=== PATIENT | male | born 1960 | race Caucasian/White ===

== ENCOUNTER 2017-10-01 17:21 | Emergency (ER) | payer OTHER, BC ==
[2017-10-01] MEDS ORDERED: HYDROmorphone 1 MG/ML 1 ML SYRINGE IVP STA (17:56)
[2017-10-01] MEDS ORDERED: ONDANSETRON 4 MG/2 ML VIAL IVP STA (17:56)
--- NOTE | 2017-10-01 18:04 | ED ---
General Adult HPI - General Chief complaint: Recheck/Abnormal Lab/Rx Stated complaint: post OP prostate/Bleeding Time Seen by Provider: 10/01/17 17:47 Source: patient, RN notes reviewed Mode of arrival: ambulatory Limitations: no limitations - History of Present Illness Initial comments: Patient 56-year-old male status post prostatectomy 6 days, who presents emergency room today with chief complaint of abdominal pain and believe that he may have follow-up with his nancy. Patient states that he was tried have a bowel movement prior to arrival and felt something pop. States she's had some increased drainage has been clear in color. Patient currently rates abdominal pain 06/25. States he has been using [place] for the pain. Patient does move to some irritation to the skin area from the tape that he's been using. He denies any other complaints Patient denies any recent fever, chills, shortness of breath, chest pain, back pain, nausea or vomiting, numbness or tingling, dysuria or hematuria, constipation or diarrhea, headaches or visual changes, or any other complaints. - Related Data Home Medications Medication Instructions Recorded Confirmed Simvastatin [Zocor] 80 mg PO HS 04/25/14 10/01/17 Albuterol Inhaler [Ventolin Hfa 2 puff INHALATION Q6HR PRN 04/27/14 10/01/17 Inhaler] Hydrochlorothiazide [Hydrodiuril] 25 mg PO HS 04/27/14 10/01/17 Sertraline [Zoloft] 100 mg PO HS 04/27/14 10/01/17 Hydrocodone/Acetaminophen [[place] 1 tab PO Q4HR PRN 10/01/17 10/01/17 7.5-325] Sennosides [Senna] 8.6 mg PO BID PRN 10/01/17 10/01/17 Simethicone [Gas-X] 125 mg PO DAILY PRN 10/01/17 10/01/17 traZODone HCL 50 mg PO HS 10/01/17 10/01/17 Previous Rx's Medication Instructions Recorded Levofloxacin [Levaquin] 500 mg PO DAILY 7 Days tab 10/01/17 Allergies Allergy/AdvReac Type Severity Reaction Status Date / Time adhesive tape Allergy Rash/Hives Verified 10/01/17 18:21 Review of Systems ROS Statement: Those systems with pertinent positive or pertinent negative responses have been documented in the HPI. ROS Other: All systems not noted in ROS Statement are negative. Past Medical History Past Medical History: Asthma, Cancer, Hyperlipidemia Additional Past Medical History / Comment(s): peripheral edema. Prostate cancer History of Any Multi-Drug Resistant Organisms: None Reported Past Surgical History: Appendectomy, Prostate Surgery Additional Past Surgical History / Comment(s): left wrist, left shoulder pin, cystectomy tailbone, open abdominal surgery to remove prsotate Past Anesthesia/Blood Transfusion Reactions: No Reported Reaction Past Psychological History: PTSD Smoking Status: Never smoker Past Alcohol Use History: None Reported Past Drug Use History: None Reported - Past Family History Father Family Medical History: No Reported History General Exam - General Exam Comments Initial Comments: General: The patient is awake and alert, in no distress, and does not appear acutely ill. Eye: Pupils are equal, round and reactive to light, extra-ocular movements are intact. No nystagmus. There is normal conjunctiva bilaterally. No signs of icterus. Ears, nose, mouth and throat: There are moist mucous membranes and no oral lesions. Neck: The neck is supple, there is no tenderness or JVD. Cardiovascular: There is a regular rate and rhythm. No murmur, rub or gallop is appreciated. Respiratory: Lungs are clear to auscultation, respirations are non-labored, breath sounds are equal. No wheezes, stridor, rales, or rhonchi. Gastrointestinal: Incision midline. Clear drainage coming from the incision site. Mild redness locally around the incision site and previous drain sites to the lower abdomen. Abdomen soft on palpation mild tenderness to lower abdomen. Musculoskeletal: Normal ROM, no tenderness. Strength 5/5. Sensation intact. Pulses equal bilaterally 2+. Neurological: A&O x 3. CN II-XII intact, There are no obvious motor or sensory deficits. Coordination appears grossly intact. Speech is normal. Skin: Mild redness irritation to the lower abdomen around the incision site and previous drain sites. Some irritation from tape and dressings. Psychiatric: Cooperative, appropriate mood & affect, normal judgment. Limitations: no limitations Course Vital Signs 10/01/17 17:39 Temperature 97.7 F Pulse Rate 90 Respiratory 18 Rate Blood Pressure 125/73 O2 Sat by Pulse 97 Oximetry Medical Decision Making - Medical Decision Making Case discussed in detail and seen by attending physician Dr. Chatterjee. Patient reexamined at this time shows no signs of distress resting comfortably. Patient labs reviewed 13,000 white count. Urinalysis reviewed does show evidence for urinary tract infection. At this time patient is resting comfortably. His abdomen soft nontender on exam. Mild irritation to the incision site and areas where drain tubes were placed. Patient will have topical antibiotics applied to the area is locally. Her on antibiotics cover for urinary tract infection and advised to follow-up with surgeon tomorrow. Advised return if there is any fever or increase or worsening symptoms. Patient and family member at bedside state understanding and are negative. - Lab Data Result diagrams: 10/01/17 18:30 10/01/17 18:30 Lab Results 10/01/17 10/01/17 10/01/17 Range/Units 18:30 18:30 18:30 WBC 13.7 H (3.8-10.6) k/uL RBC 3.73 L (4.30-5.90) m/uL Hgb 11.0 L (13.0-17.5) gm/dL Hct 35.1 L (39.0-53.0) % MCV 94.2 (80.0-100.0) fL MCH 29.5 (25.0-35.0) pg MCHC 31.3 (31.0-37.0) g/dL RDW 15.4 (11.5-15.5) % Plt Count 355 (150-450) k/uL Neutrophils % 71 % Lymphocytes % 12 % Monocytes % 9 % Eosinophils % 6 % Basophils % 1 % Neutrophils # 9.7 H (1.3-7.7) k/uL Lymphocytes # 1.6 (1.0-4.8) k/uL Monocytes # 1.2 H (0-1.0) k/uL Eosinophils # 0.8 H (0-0.7) k/uL Basophils # 0.1 (0-0.2) k/uL PT 9.3 (9.0-12.0) sec INR 0.9 (<1.2) APTT 20.5 L (22.0-30.0) sec Sodium 139 (137-145) mmol/L Potassium 4.5 (3.5-5.1) mmol/L Chloride 105 (98-107) mmol/L Carbon Dioxide 30 (22-30) mmol/L Anion Gap 4 mmol/L BUN 21 H (9-20) mg/dL Creatinine 0.95 (0.66-1.25) mg/dL Est GFR (MDRD) Af Amer >60 (>60 ml/min/1.73 sqM) Est GFR (MDRD) Non-Af >60 (>60 ml/min/1.73 sqM) Glucose 107 H (74-99) mg/dL Calcium 9.1 (8.4-10.2) mg/dL Total Bilirubin 0.5 (0.2-1.3) mg/dL AST 75 H (17-59) U/L ALT 95 H (21-72) U/L Alkaline Phosphatase 88 (38-126) U/L Total Protein 5.8 L (6.3-8.2) g/dL Albumin 3.1 L (3.5-5.0) g/dL Urine Color Urine Appearance (Clear) Urine pH (5.0-8.0) Ur Specific [place] (1.001-1.035) Urine Protein (Negative) Urine Glucose (UA) (Negative) Urine Ketones (Negative) Urine Blood (Negative) Urine Nitrite (Negative) Urine Bilirubin (Negative) Urine Urobilinogen (<2.0) mg/dL Ur Leukocyte Esterase (Negative) Urine RBC (0-5) /hpf Urine WBC (0-5) /hpf Amorphous Sediment (None) /hpf Hyaline Casts (0-2) /lpf Urine Mucus (None) /hpf 10/01/17 Range/Units 18:30 WBC (3.8-10.6) k/uL RBC (4.30-5.90) m/uL Hgb (13.0-17.5) gm/dL Hct (39.0-53.0) % MCV (80.0-100.0) fL MCH (25.0-35.0) pg MCHC (31.0-37.0) g/dL RDW (11.5-15.5) % Plt Count (150-450) k/uL Neutrophils % % Lymphocytes % % Monocytes % % Eosinophils % % Basophils % % Neutrophils # (1.3-7.7) k/uL Lymphocytes # (1.0-4.8) k/uL Monocytes # (0-1.0) k/uL Eosinophils # (0-0.7) k/uL Basophils # (0-0.2) k/uL PT (9.0-12.0) sec INR (<1.2) APTT (22.0-30.0) sec Sodium (137-145) mmol/L Potassium (3.5-5.1) mmol/L Chloride (98-107) mmol/L Carbon Dioxide (22-30) mmol/L Anion Gap mmol/L BUN (9-20) mg/dL Creatinine (0.66-1.25) mg/dL Est GFR (MDRD) Af Amer (>60 ml/min/1.73 sqM) Est GFR (MDRD) Non-Af (>60 ml/min/1.73 sqM) Glucose (74-99) mg/dL Calcium (8.4-10.2) mg/dL Total Bilirubin (0.2-1.3) mg/dL AST (17-59) U/L ALT (21-72) U/L Alkaline Phosphatase (38-126) U/L Total Protein (6.3-8.2) g/dL Albumin (3.5-5.0) g/dL Urine Color Light Red Urine Appearance Cloudy (Clear) Urine pH 6.0 (5.0-8.0) Ur Specific [place] 1.025 (1.001-1.035) Urine Protein 2+ H (Negative) Urine Glucose (UA) Negative (Negative) Urine Ketones Negative (Negative) Urine Blood Large H (Negative) Urine Nitrite Negative (Negative) Urine Bilirubin Negative (Negative) Urine Urobilinogen <2.0 (<2.0) mg/dL Ur Leukocyte Esterase Moderate H (Negative) Urine RBC >182 H (0-5) /hpf Urine WBC 70 H (0-5) /hpf Amorphous Sediment Occasional H (None) /hpf Hyaline Casts 2 (0-2) /lpf Urine Mucus Few H (None) /hpf Disposition Clinical Impression: UTI (urinary tract infection), Encounter for postoperative wound check Disposition: HOME SELF-CARE Condition: Good Instructions: Urinary Tract Infection in Men (ED) Additional Instructions: Please follow-up with the surgeon tomorrow. Please use antibiotic as prescribed. Please return to the emergency room there is any fever, increase or worsening symptoms or any other concern. Prescriptions: Levofloxacin [Levaquin] 500 mg PO DAILY 7 Days tab Referrals: Gary Pagan DO [Primary Care Provider] - 1-2 days Time of Disposition: 19:46
[2017-10-01 18:56] LABS: Basophils # (A) 0.1 k/uL (0-0.2); Basophils % (A) 1 %; CH 29.5; CHCM 31.5; Eosinophils # (A) 0.8 k/uL (0-0.7); Eosinophils % (A) 6 %; HCT 35.1 % (39.0-53.0); HDW 2.48; Luc # (Auto) 0.24; Luc % (Auto) 2; Lymphocytes # (A) 1.6 k/uL (1.0-4.8); Lymphocytes % (A) 12 %; MCH 29.5 pg (25.0-35.0); MCHC 31.3 g/dL (31.0-37.0); MCV 94.2 fL (80.0-100.0); Mean Platelet Volume 7.5; Monocytes # (A) 1.2 k/uL (0-1.0); Monocytes % (A) 9 %; Neutrophils # (A) 9.7 k/uL (1.3-7.7); Neutrophils % (A) 71 %; RBC 3.73 m/uL (4.30-5.90); RDW 15.4 % (11.5-15.5); WBC 13.7 k/uL (3.8-10.6); WBC (Perox) 14.61
[2017-10-01 19:03] LABS: Amorphous Sediment,Urine Occasional /hpf; Appearance,Urine Cloudy (Clear); Bilirubin,Urine Negative (Negative); Glucose,Urine (UA) Negative (Negative); Ketones,Urine Negative (Negative); Leukocyte Esterase,Urine Moderate (Negative); Mucus,Urine Few /hpf; Nitrite,Urine Negative (Negative); Particle Count 8497; Protein,Urine 2+ (Negative); RBC,Urine >182 /hpf (0-5); Specific Gravity,Urine 1.025 (1.001-1.035); UA Billing (MACRO vs. MICRO) MICRO; Urobilinogen,Urine <2.0 mg/dL (<2.0); WBC,Urine 70 /hpf (0-5)
[2017-10-01 19:07] LABS: ALT 95 U/L (21-72); AST 75 U/L (17-59); Alkaline Phosphatase 88 U/L (38-126); Anion Gap 4 mmol/L; Blood Urea Nitrogen 21 mg/dL (9-20); Calcium 9.1 mg/dL (8.4-10.2); Carbon Dioxide 30 mmol/L (22-30); Chloride 105 mmol/L (98-107); Glucose 107 mg/dL (74-99); Non-African American GFR(MDRD) >60 (>60 ml/min/1.73 sqM); Potassium 4.5 mmol/L (3.5-5.1); Sodium 139 mmol/L (137-145); Total Bilirubin 0.5 mg/dL (0.2-1.3); Total Protein 5.8 g/dL (6.3-8.2)
[2017-10-01 19:14] LABS: INR 0.9 (<1.2); Prothrombin Time 9.3 sec (9.0-12.0)
[2017-10-01 19:15] LABS: Partial Thromboplastin Time 20.5 sec (22.0-30.0)
--- NOTE | 2017-10-01 19:23 | XR ---
EXAMINATION TYPE: XR KUB DATE OF EXAM: 10/01/2017 CLINICAL DATA: 56-year-old male with pain, recent prostate surgery, complaining of drainage from inc ision, [facility] COMPARISON: None FINDINGS: Lung bases are clear. No evidence for free intraperitoneal air. Scattered small air-fluid levels throughout the abdomen. No dilated bowel. No significant stool burde n. Anterior midline skin nancy along the pelvis with a multiple surgical clips relating to the shama ent's recent prostatectomy. IMPRESSION: No evidence for bowel obstruction. However, scattered small air-fluid levels suggest a generalized il eus or enteritis. Postsurgical changes of patient's prostatectomy.
[2017-10-01 19:53] VITALS: BP 133/71; PULSE 85; RESP 19; TEMP 98
== END 2017-10-01 19:53 | disposition home or self-care (01) ==
LOC: EC 17:21
DX: Z48.01 Encounter for change or removal of surgical wound dressing (principal); N39.0 Urinary tract infection, site not specified; E78.5 Hyperlipidemia, unspecified; F43.10 Post-traumatic stress disorder, unspecified; Z90.49 Acquired absence of other specified parts of digestive tract; Z85.46 Personal history of malignant neoplasm of prostate; Z91.048 Other nonmedicinal substance allergy status; Z79.899 Other long term (current) drug therapy
CPT/HCPCS: 99283; 96374; 96375; 36415; 80053; 85025; 85610; 85730; 81001; 87040; 87070; 87086; 87205; 74000; J2405; J1170; 87077; 87186

== ENCOUNTER 2017-10-05 14:57 | Emergency (ER) | payer OTHER, BC ==
[2017-10-05 15:47] VITALS: RESP 20
[2017-10-05] MEDS ORDERED: PIPERACILLIN-TAZOBACTAM 3.375 GM in DEXTROSE/WATER 1 50ML.BAG IVPB STA (15:49)
[2017-10-05] MEDS ORDERED: ACETAMINOPHEN TAB 500 MG TAB PO STA (15:49)
[2017-10-05] MEDS ORDERED: IBUPROFEN 600 MG TAB PO STA (15:49)
--- NOTE | 2017-10-05 15:53 | ED ---
General Adult HPI - General Chief complaint: Abdominal Pain Stated complaint: Post Op/Pain Time Seen by Provider: 10/05/17 15:00 Source: patient, RN notes reviewed Mode of arrival: wheelchair Limitations: physical limitation - History of Present Illness Initial comments: This a 56-year-old male who states he had prostate surgery down at the [facility]. Patient states it occurred about 10 days ago. Patient states since then he has had more more swelling more more pain in the incision site and the incision site has become warm and extremely red. Patient states she's had chills but does not have a thermometer take his temperature. Patient called his surgeon he told the patient to go to the emergency room immediately. Patient denies any chest pain shortness of breath or difficulty breathing. Patient denies headache patient denies numbness weakness. Patient denies lightheadedness dizziness or near-syncopal episode. Patient denies any dysuria hematuria urinary freaky. - Related Data Home Medications Medication Instructions Recorded Confirmed Albuterol Inhaler [Ventolin Hfa 2 puff INHALATION RT-Q6H PRN 04/27/14 10/05/17 Inhaler] Hydrochlorothiazide [Hydrodiuril] 25 mg PO HS 04/27/14 10/05/17 Sertraline [Zoloft] 100 mg PO HS 04/27/14 10/05/17 Hydrocodone/Acetaminophen [[place] 1 tab PO Q4HR PRN 10/01/17 10/05/17 7.5-325] Sennosides [Senna] 8.6 mg PO BID PRN 10/01/17 10/05/17 Simethicone [Gas-X] 125 mg PO DAILY PRN 10/01/17 10/05/17 traZODone HCL 50 mg PO HS 10/01/17 10/05/17 Simvastatin [Zocor] 80 mg PO HS 10/05/17 10/05/17 Previous Rx's Medication Instructions Recorded Levofloxacin [Levaquin] 500 mg PO DAILY 7 Days tab 10/01/17 Allergies Allergy/AdvReac Type Severity Reaction Status Date / Time adhesive tape Allergy Rash/Hives Verified 10/05/17 15:59 Review of Systems ROS Statement: Those systems with pertinent positive or pertinent negative responses have been documented in the HPI. ROS Other: All systems not noted in ROS Statement are negative. Past Medical History Past Medical History: Asthma, Cancer, Hyperlipidemia, Prostate Disorder Additional Past Medical History / Comment(s): peripheral edema. Prostate cancer History of Any Multi-Drug Resistant Organisms: None Reported Date of last positivie culture/infection: 10/01/17 MDRO Source:: incision Past Surgical History: Appendectomy, Prostate Surgery Additional Past Surgical History / Comment(s): left wrist, left shoulder pin, cystectomy tailbone, open abdominal surgery to remove prsotate Past Anesthesia/Blood Transfusion Reactions: No Reported Reaction Past Psychological History: PTSD Smoking Status: Never smoker Past Alcohol Use History: None Reported Past Drug Use History: None Reported - Past Family History Father Family Medical History: No Reported History General Exam - General Exam Comments Initial Comments: GENERAL: Patient is well-developed and well-nourished. Patient is nontoxic and well- hydrated and is in mild distress. ENT: Neck is soft and supple. No significant lymphadenopathy is noted. Oropharynx is clear. Moist mucous membranes. Neck has full range of motion without eliciting any pain. EYES: The sclera were anicteric and conjunctiva were pink and moist. Extraocular movements were intact and pupils were equal round and reactive to light. Eyelids were unremarkable. PULMONARY: Unlabored respirations. Good breath sounds bilaterally. No audible rales rhonchi or wheezing was noted. CARDIOVASCULAR: There is a regular rate and rhythm without any murmurs gallops or rubs. ABDOMEN: Patient's incision site is warm and erythematous and tender to palpation. No palpable organomegaly was noted. There is no palpable pulsatile mass. SKIN: Skin is clear with no lesions or rashes and otherwise unremarkable. NEUROLOGIC: Patient is alert and oriented x3. Cranial nerves II through XII are grossly intact. Motor and sensory are also intact. Normal speech, volume and content. Symmetrical smile. MUSCULOSKELETAL: Normal extremities with adequate strength and full range of motion. LYMPHATICS: No significant lymphadenopathy is noted PSYCHIATRIC: Normal psychiatric evaluation. Normal interpersonal interactions appears functionally intact in deals appropriately with others. No signs of depression. No signs of anxiety. Limitations: physical limitation Course Vital Signs 10/05/17 10/05/17 10/05/17 15:00 15:46 16:30 Temperature 98.8 F 101.4 F H Pulse Rate 121 H 96 74 Respiratory 24 20 20 Rate Blood Pressure 123/80 140/75 140/87 O2 Sat by Pulse 94 L 95 98 Oximetry 10/05/17 17:38 Temperature Pulse Rate 69 Respiratory 20 Rate Blood Pressure 137/81 O2 Sat by Pulse 95 Oximetry Medical Decision Making - Medical Decision Making EKG shows sinus tachycardia at 106 bpm MS interval 232 QRS is 84 QT interval 340 QTC is 451. Patient's EKG shows no ST segment elevation or depression or T wave abnormalities are noted. I spoke to the ER doc done at the [facility] in [place] and he accepted the transfer the patient - Lab Data Result diagrams: 10/05/17 15:41 10/05/17 15:41 Lab Results 10/05/17 10/05/17 10/05/17 Range/Units 15:41 15:41 15:41 WBC 21.5 H (3.8-10.6) k/uL RBC 4.00 L (4.30-5.90) m/uL Hgb 11.7 L (13.0-17.5) gm/dL Hct 37.4 L (39.0-53.0) % MCV 93.6 (80.0-100.0) fL MCH 29.3 (25.0-35.0) pg MCHC 31.3 (31.0-37.0) g/dL RDW 15.2 (11.5-15.5) % Plt Count 469 H (150-450) k/uL Neutrophils % 82 % Lymphocytes % 7 % Monocytes % 8 % Eosinophils % 2 % Basophils % 0 % Neutrophils # 17.7 H (1.3-7.7) k/uL Lymphocytes # 1.4 (1.0-4.8) k/uL Monocytes # 1.8 H (0-1.0) k/uL Eosinophils # 0.4 (0-0.7) k/uL Basophils # 0.1 (0-0.2) k/uL PT (9.0-12.0) sec INR (<1.2) APTT (22.0-30.0) sec Sodium 136 L (137-145) mmol/L Potassium 4.1 (3.5-5.1) mmol/L Chloride 100 (98-107) mmol/L Carbon Dioxide 25 (22-30) mmol/L Anion Gap 11 mmol/L BUN 19 (9-20) mg/dL Creatinine 1.00 (0.66-1.25) mg/dL Est GFR (MDRD) Af Amer >60 (>60 ml/min/1.73 sqM) Est GFR (MDRD) Non-Af >60 (>60 ml/min/1.73 sqM) Glucose 185 H (74-99) mg/dL Plasma Lactic Acid [place] 1.8 (0.7-2.0) mmol/L Calcium 9.2 (8.4-10.2) mg/dL Total Bilirubin 1.7 H (0.2-1.3) mg/dL AST 26 (17-59) U/L ALT 54 (21-72) U/L Alkaline Phosphatase 90 (38-126) U/L Total Protein 5.8 L (6.3-8.2) g/dL Albumin 3.1 L (3.5-5.0) g/dL Urine Color Urine Appearance (Clear) Urine pH (5.0-8.0) Ur Specific [place] (1.001-1.035) Urine Protein (Negative) Urine Glucose (UA) (Negative) Urine Ketones (Negative) Urine Blood (Negative) Urine Nitrite (Negative) Urine Bilirubin (Negative) Urine Urobilinogen (<2.0) mg/dL Ur Leukocyte Esterase (Negative) 10/05/17 10/05/17 Range/Units 15:41 16:16 WBC (3.8-10.6) k/uL RBC (4.30-5.90) m/uL Hgb (13.0-17.5) gm/dL Hct (39.0-53.0) % MCV (80.0-100.0) fL MCH (25.0-35.0) pg MCHC (31.0-37.0) g/dL RDW (11.5-15.5) % Plt Count (150-450) k/uL Neutrophils % % Lymphocytes % % Monocytes % % Eosinophils % % Basophils % % Neutrophils # (1.3-7.7) k/uL Lymphocytes # (1.0-4.8) k/uL Monocytes # (0-1.0) k/uL Eosinophils # (0-0.7) k/uL Basophils # (0-0.2) k/uL PT 10.3 (9.0-12.0) sec INR 1.1 (<1.2) APTT 24.3 (22.0-30.0) sec Sodium (137-145) mmol/L Potassium (3.5-5.1) mmol/L Chloride (98-107) mmol/L Carbon Dioxide (22-30) mmol/L Anion Gap mmol/L BUN (9-20) mg/dL Creatinine (0.66-1.25) mg/dL Est GFR (MDRD) Af Amer (>60 ml/min/1.73 sqM) Est GFR (MDRD) Non-Af (>60 ml/min/1.73 sqM) Glucose (74-99) mg/dL Plasma Lactic Acid [place] (0.7-2.0) mmol/L Calcium (8.4-10.2) mg/dL Total Bilirubin (0.2-1.3) mg/dL AST (17-59) U/L ALT (21-72) U/L Alkaline Phosphatase (38-126) U/L Total Protein (6.3-8.2) g/dL Albumin (3.5-5.0) g/dL Urine Color [place] Urine Appearance Cloudy (Clear) Urine pH 6.0 (5.0-8.0) Ur Specific [place] 1.020 (1.001-1.035) Urine Protein 2+ (Negative) Urine Glucose (UA) Negative (Negative) Urine Ketones Negative (Negative) Urine Blood Large (Negative) Urine Nitrite Negative (Negative) Urine Bilirubin Negative (Negative) Urine Urobilinogen 0.0 (<2.0) mg/dL Ur Leukocyte Esterase Moderate (Negative) Critical Care Time Critical Care Time: Yes Total Critical Care Time: 35 Disposition Clinical Impression: Postoperative wound infection, Sepsis Disposition: OTHER INSTITUTION NOT DEFINED Referrals: Gary Pagan DO [Primary Care Provider] - 1-2 days Time of Disposition: 19:36 - Out of Hospital Transfer - Req. Specs Out of Hospital Transfer - Requested Specifics: Other Emergency Center ([facility])
[2017-10-05] MEDS: SODIUM CHLORIDE 0.9% 500 ML IV SCH (16:04)
[2017-10-05 16:11] LABS: Basophils # (A) 0.1 k/uL (0-0.2); Basophils % (A) 0 %; CH 29.8; CHCM 32.1; Eosinophils # (A) 0.4 k/uL (0-0.7); Eosinophils % (A) 2 %; HCT 37.4 % (39.0-53.0); HDW 2.46; HGB 11.7 gm/dL (13.0-17.5); Luc % (Auto) 1; Lymphocytes # (A) 1.4 k/uL (1.0-4.8); Lymphocytes % (A) 7 %; MCH 29.3 pg (25.0-35.0); MCHC 31.3 g/dL (31.0-37.0); MCV 93.6 fL (80.0-100.0); Mean Platelet Volume 7.4; Monocytes # (A) 1.8 k/uL (0-1.0); Monocytes % (A) 8 %; Neutrophils # (A) 17.7 k/uL (1.3-7.7); Neutrophils % (A) 82 %; RDW 15.2 % (11.5-15.5); WBC 21.5 k/uL (3.8-10.6); WBC (Perox) 22.02
[2017-10-05 16:23] LABS: ALT 54 U/L (21-72); AST 26 U/L (17-59); Alkaline Phosphatase 90 U/L (38-126); Anion Gap 11 mmol/L; Blood Urea Nitrogen 19 mg/dL (9-20); Calcium 9.2 mg/dL (8.4-10.2); Carbon Dioxide 25 mmol/L (22-30); Chloride 100 mmol/L (98-107); Glucose 185 mg/dL (74-99); Non-African American GFR(MDRD) >60 (>60 ml/min/1.73 sqM); Potassium 4.1 mmol/L (3.5-5.1); Sodium 136 mmol/L (137-145); Total Bilirubin 1.7 mg/dL (0.2-1.3); Total Protein 5.8 g/dL (6.3-8.2)
[2017-10-05 16:25] LABS: INR 1.1 (<1.2); Partial Thromboplastin Time 24.3 sec (22.0-30.0); Prothrombin Time 10.3 sec (9.0-12.0)
--- NOTE | 2017-10-05 16:44 | XR ---
EXAMINATION TYPE: XR chest 2V DATE OF EXAM: 10/05/2017 COMPARISON: Chest x-ray November 08, 2015. HISTORY: History of prostate cancer with prostatectomy September 25 presents with fever. TECHNIQUE: Frontal and lateral views of the chest are obtained. FINDINGS: There is no focal air space opacity, pleural effusion, or pneumothorax seen. The cardiac silhouette size is within normal limits. Fixation screw left shoulder level is redemonstrated. IMPRESSION: No suspicious acute infiltrate. No significant change from prior.
[2017-10-05 16:45] LABS: Appearance,Urine Cloudy (Clear); Protein,Urine 2+ (Negative)
[2017-10-05 16:46] LABS: Bilirubin,Urine Negative (Negative); Glucose,Urine (UA) Negative (Negative); Ketones,Urine Negative (Negative)
[2017-10-05 16:47] LABS: Leukocyte Esterase,Urine Moderate (Negative); Nitrite,Urine Negative (Negative); UA Billing (MACRO vs. MICRO) CHEM
[2017-10-05] MEDS ORDERED: ONDANSETRON 4 MG/2 ML VIAL IVP STA (17:37)
[2017-10-05] MEDS ORDERED: RX INFO: IV CONTRAST WAS GIVEN 1 EACH MISC MISCELLANE PRN (17:37)
[2017-10-05] MEDS ORDERED: HYDROmorphone 1 MG/ML 1 ML SYRINGE IVP STA (17:37)
--- NOTE | 2017-10-05 18:33 | CT ---
EXAMINATION TYPE: CT abdomen pelvis w con DATE OF EXAM: 10/05/2017 COMPARISON: NONE HISTORY: Prostate removal 09/25/17. Possible infection today. CT DLP: 4787 mGycm Automated exposure control for dose reduction was used. TECHNIQUE: Helical acquisition of images was performed from the lung bases through the pelvis. CONTRAST: Performed without Oral Contrast and with IV Contrast, patient injected with 100 mL of Omnipaque 300. FINDINGS: LUNG BASES: No significant abnormality is appreciated. LIVER/GB: No significant abnormality is appreciated. PANCREAS: No significant abnormality is seen. SPLEEN: No significant abnormality is seen. ADRENALS: No significant abnormality is seen. KIDNEYS: The kidneys are unremarkable. There is slight prominence of the left upper collecting system , of doubtful clinical significance at this time. PERITONEAL CAVITY: No abnormal gas or fluid collections throughout the peritoneal spaces of the abdo men and pelvis. ABDOMINAL ADENOPATHY: None visualized ANTERIOR ABDOMINAL PELVIC WALL: The most striking change is the infraumbilical anterior abdominal wal l, immediately posterior to the cutaneous staple line where there is an approximately 12 cm CC x 10 c m AP by 5 cm transverse fluid collection with numerous tiny gas bubbles within. This extends from the umbilicus level to the pubic symphysis level. There is associated indistinctness of the rectus abdom inous bilaterally, but the soft tissues deep to the transversalis fascia have normal appearance as do es the omentum and mesentery. URINARY BLADDER, PERIVESICAL SPACES, AND PELVIC SIDEWALLS: 1. Paredes catheter present, appearing somewhat low in position; the bladder itself is negative as seen . 2. The ureters appear intact. 3. The seminal vesicles and vas deferens are negative as seen. 4. The rectum is unremarkable. 5. Mild fluid like density is noted in the left obturator position, appearing to be postprocedural ch paulette. Postprocedural perivesical spaces changes. PELVIC ADENOPATHY: None visualized. OSSEOUS STRUCTURES: No significant abnormality is seen. BOWEL: No significant abnormality is seen. IMPRESSION: 1. ANTERIOR ABDOMINAL WALL FLUID COLLECTION WITH GAS BUBBLES WITHIN. 2. NOT UNEXPECTED POSTPROCEDURAL CHANGES IN THE LOWER PELVIS.
[2017-10-05] MEDS ORDERED: LEVOFLOXACIN 750MG-D5W PMX 750 MG in DEXTROSE/WATER 1 150ML.BAG IVPB STA (19:50)
[2017-10-05 20:40] VITALS: BP 137/72; PULSE 82; TEMP 98.7
== END 2017-10-05 20:50 | disposition other institution (70) ==
LOC: EC 14:57
DX: T81.4XXA Infection following a procedure, initial encounter (principal); A41.9 Sepsis, unspecified organism; E78.5 Hyperlipidemia, unspecified; F43.10 Post-traumatic stress disorder, unspecified; Z85.46 Personal history of malignant neoplasm of prostate; Z90.49 Acquired absence of other specified parts of digestive tract; Z98.890 Other specified postprocedural states; Z79.899 Other long term (current) drug therapy; Z91.048 Other nonmedicinal substance allergy status
CPT/HCPCS: 36415; 93005; 80053; 83605; 85025; 85610; 85730; 81003; 87040; 87070; 87086; 87205; 71020; 74177; 99291; 96365; 96366 ×3; 96375 ×3; J2405; J1170; J1956; J2543; Q9967; 87077; 87186

== ENCOUNTER 2017-10-27 15:49 | Inpatient (IN) | payer BC, OTHER ==
[2017-10-27] MEDS ORDERED: RX INFO: IV CONTRAST WAS GIVEN 1 EACH MISC MISCELLANE PRN (16:10)
[2017-10-27] MEDS ORDERED: SODIUM CHLORIDE 0.9% 1,000 ML IV ONE (16:11)
[2017-10-27] MEDS ORDERED: HYDROmorphone 2 MG/ML 1 ML SYRINGE IVP STA (16:20)
[2017-10-27] MEDS ORDERED: ONDANSETRON 4 MG/2 ML VIAL IVP STA (16:20)
--- NOTE | 2017-10-27 16:34 | ED ---
General Adult HPI - General Chief complaint: Recheck/Abnormal Lab/Rx Stated complaint: Post Op Infection Time Seen by Provider: 10/27/17 16:04 Source: patient, RN notes reviewed Mode of arrival: ambulatory Limitations: no limitations - History of Present Illness Initial comments: This a 56-year-old male presents emergency Department with chief complaint of postop infection, abdominal pain. Patient states that he had his prostate removed on 09/25/2017 at the [facility]. Patient states that a breast cancer. Patient states he was sent down to the [facility] on 10/05/17 for 3 days in the hospital for infection. Patient states he was discharged and they have been doing wound packing and states that at the [facility] clinic here in monitoring the size states it' s been increasing along with increased pain last 3-4 days. Patient states her spreading redness on his abdomen also. He did noted that on the packing there was more drainage that had been. Patient denies any known fever or chills. Denies nausea, vomiting diarrhea constipation. Patient states he is on no current antibiotics. Patient was sent to the emergency room for evaluation and possible treatment for infection. - Related Data Home Medications Medication Instructions Recorded Confirmed Albuterol Inhaler [Ventolin Hfa 2 puff INHALATION RT-Q6H PRN 04/27/14 10/27/17 Inhaler] Hydrochlorothiazide [Hydrodiuril] 25 mg PO HS 04/27/14 10/27/17 Sertraline [Zoloft] 100 mg PO DAILY 04/27/14 10/27/17 Simethicone [Gas-X] 125 mg PO DAILY PRN 10/01/17 10/27/17 traZODone HCL 50 mg PO HS 10/01/17 10/27/17 Simvastatin [Zocor] 80 mg PO HS 10/05/17 10/27/17 Ibuprofen [Motrin] 800 mg PO Q6H PRN 10/27/17 10/27/17 Allergies Allergy/AdvReac Type Severity Reaction Status Date / Time adhesive tape Allergy Rash/Hives Verified 10/27/17 16:08 Review of Systems ROS Statement: Those systems with pertinent positive or pertinent negative responses have been documented in the HPI. ROS Other: All systems not noted in ROS Statement are negative. Past Medical History Past Medical History: Asthma, Cancer, Hyperlipidemia, Prostate Disorder Additional Past Medical History / Comment(s): peripheral edema. Prostate cancer History of Any Multi-Drug Resistant Organisms: None Reported Date of last positivie culture/infection: 10/01/17 MDRO Source:: incision Past Surgical History: Appendectomy, Prostate Surgery Additional Past Surgical History / Comment(s): left wrist, left shoulder pin, cystectomy tailbone, open abdominal surgery to remove prsotate Past Anesthesia/Blood Transfusion Reactions: No Reported Reaction Past Psychological History: PTSD Smoking Status: Never smoker Past Alcohol Use History: None Reported Past Drug Use History: None Reported - Past Family History Father Family Medical History: No Reported History General Exam Limitations: no limitations General appearance: alert, in no apparent distress Head exam: Present: atraumatic, normocephalic, normal inspection Neck exam: Present: normal inspection. Absent: tenderness, meningismus, lymphadenopathy Respiratory exam: Present: normal lung sounds bilaterally. Absent: respiratory distress, wheezes, rales, rhonchi, stridor Cardiovascular Exam: Present: regular rate, normal rhythm, normal heart sounds. Absent: systolic murmur, diastolic murmur, rubs, gallop, clicks GI/Abdominal exam: Present: soft, tenderness (Moderate tenderness to lower abdomen and areas of induration firm with palpation around the incision and open wound. There is a lower wound to the incision that is packed currently and to superior that are healing there is erythema that extends above the umbilicus and onto the lateral portions of the abdomen.), normal bowel sounds. Absent: distended, guarding, rebound, rigid Back exam: Absent: CVA tenderness (R), CVA tenderness (L) Skin exam: Present: warm, dry, intact, normal color. Absent: rash Course Vital Signs 10/27/17 10/27/17 15:59 16:52 Temperature 99.2 F 98.7 F Pulse Rate 100 97 Respiratory 18 16 Rate Blood Pressure 155/71 135/78 O2 Sat by Pulse 98 95 Oximetry Medical Decision Making - Medical Decision Making 56-year-old male presented for abdominal wall cellulitis possible abscess. CT shows open abscess no drainable abscess, primary abdominal wall cellulitis white count 15.9 normal lactic acid at this time. Patient was started on vancomycin and Zosyn. I did discuss the case with Brenda tobar who recommends infectious disease doctor yannick - Lab Data Result diagrams: 10/27/17 16:41 10/27/17 16:41 Lab Results 10/27/17 10/27/17 10/27/17 Range/Units 16:36 16:41 16:41 WBC 15.9 H (3.8-10.6) k/uL RBC 4.30 (4.30-5.90) m/uL Hgb 12.2 L (13.0-17.5) gm/dL Hct 39.3 (39.0-53.0) % MCV 91.2 (80.0-100.0) fL MCH 28.4 (25.0-35.0) pg MCHC 31.2 (31.0-37.0) g/dL RDW 14.9 (11.5-15.5) % Plt Count 408 (150-450) k/uL Neutrophils % 73 % Lymphocytes % 11 % Monocytes % 10 % Eosinophils % 3 % Basophils % 1 % Neutrophils # 11.5 H (1.3-7.7) k/uL Lymphocytes # 1.7 (1.0-4.8) k/uL Monocytes # 1.6 H (0-1.0) k/uL Eosinophils # 0.5 (0-0.7) k/uL Basophils # 0.1 (0-0.2) k/uL Hypochromasia Slight PT (9.0-12.0) sec INR (<1.2) APTT (22.0-30.0) sec Sodium 142 (137-145) mmol/L Potassium 4.1 (3.5-5.1) mmol/L Chloride 105 (98-107) mmol/L Carbon Dioxide 25 (22-30) mmol/L Anion Gap 12 mmol/L BUN 16 (9-20) mg/dL Creatinine 0.90 (0.66-1.25) mg/dL Est GFR (MDRD) Af Amer >60 (>60 ml/min/1.73 sqM) Est GFR (MDRD) Non-Af >60 (>60 ml/min/1.73 sqM) Glucose 155 H (74-99) mg/dL Plasma Lactic Acid Guru (0.7-2.0) mmol/L Calcium 9.1 (8.4-10.2) mg/dL Total Bilirubin 0.7 (0.2-1.3) mg/dL AST 28 (17-59) U/L ALT 51 (21-72) U/L Alkaline Phosphatase 105 (38-126) U/L Total Protein 6.7 (6.3-8.2) g/dL Albumin 3.6 (3.5-5.0) g/dL Urine Color Yellow Urine Appearance Clear (Clear) Urine pH 5.5 (5.0-8.0) Ur Specific [place] 1.017 (1.001-1.035) Urine Protein 1+ H (Negative) Urine Glucose (UA) Negative (Negative) Urine Ketones Negative (Negative) Urine Blood Small H (Negative) Urine Nitrite Negative (Negative) Urine Bilirubin Negative (Negative) Urine Urobilinogen <2.0 (<2.0) mg/dL Ur Leukocyte Esterase Small H (Negative) Urine RBC 29 H (0-5) /hpf Urine WBC 20 H (0-5) /hpf Amorphous Sediment Rare H (None) /hpf Urine Mucus Occasional H (None) /hpf 10/27/17 10/27/17 Range/Units 16:41 16:41 WBC (3.8-10.6) k/uL RBC (4.30-5.90) m/uL Hgb (13.0-17.5) gm/dL Hct (39.0-53.0) % MCV (80.0-100.0) fL MCH (25.0-35.0) pg MCHC (31.0-37.0) g/dL RDW (11.5-15.5) % Plt Count (150-450) k/uL Neutrophils % % Lymphocytes % % Monocytes % % Eosinophils % % Basophils % % Neutrophils # (1.3-7.7) k/uL Lymphocytes # (1.0-4.8) k/uL Monocytes # (0-1.0) k/uL Eosinophils # (0-0.7) k/uL Basophils # (0-0.2) k/uL Hypochromasia PT 9.8 (9.0-12.0) sec INR 1.0 (<1.2) APTT 24.7 (22.0-30.0) sec Sodium (137-145) mmol/L Potassium (3.5-5.1) mmol/L Chloride (98-107) mmol/L Carbon Dioxide (22-30) mmol/L Anion Gap mmol/L BUN (9-20) mg/dL Creatinine (0.66-1.25) mg/dL Est GFR (MDRD) Af Amer (>60 ml/min/1.73 sqM) Est GFR (MDRD) Non-Af (>60 ml/min/1.73 sqM) Glucose (74-99) mg/dL Plasma Lactic Acid Guru 1.4 (0.7-2.0) mmol/L Calcium (8.4-10.2) mg/dL Total Bilirubin (0.2-1.3) mg/dL AST (17-59) U/L ALT (21-72) U/L Alkaline Phosphatase (38-126) U/L Total Protein (6.3-8.2) g/dL Albumin (3.5-5.0) g/dL Urine Color Urine Appearance (Clear) Urine pH (5.0-8.0) Ur Specific [place] (1.001-1.035) Urine Protein (Negative) Urine Glucose (UA) (Negative) Urine Ketones (Negative) Urine Blood (Negative) Urine Nitrite (Negative) Urine Bilirubin (Negative) Urine Urobilinogen (<2.0) mg/dL Ur Leukocyte Esterase (Negative) Urine RBC (0-5) /hpf Urine WBC (0-5) /hpf Amorphous Sediment (None) /hpf Urine Mucus (None) /hpf Disposition Clinical Impression: Wound dehiscence, Abdominal wall cellulitis, Failure of outpatient treatment Disposition: ADMITTED IP TO THIS [facility] Condition: Stable Referrals: Gary Pagan DO [Primary Care Provider] - 1-2 days
[2017-10-27 16:52] LABS: Basophils # (A) 0.1 k/uL (0-0.2); Basophils % (A) 1 %; Eosinophils # (A) 0.5 k/uL (0-0.7); Eosinophils % (A) 3 %; HCT 39.3 % (39.0-53.0); HGB 12.2 gm/dL (13.0-17.5); Hypochromasia Slight; Lymphocytes # (A) 1.7 k/uL (1.0-4.8); Lymphocytes % (A) 11 %; MCH 28.4 pg (25.0-35.0); MCHC 31.2 g/dL (31.0-37.0); MCV 91.2 fL (80.0-100.0); Mean Platelet Volume 7.2; Monocytes # (A) 1.6 k/uL (0-1.0); Monocytes % (A) 10 %; Neutrophils # (A) 11.5 k/uL (1.3-7.7); Neutrophils % (A) 73 %; Platelet Count 408 k/uL (150-450); RDW 14.9 % (11.5-15.5); WBC 15.9 k/uL (3.8-10.6)
[2017-10-27 16:52] LABS: Amorphous Sediment,Urine Rare /hpf; Appearance,Urine Clear (Clear); Bilirubin,Urine Negative (Negative); Blood,Urine Small (Negative); Color,Urine Yellow; Glucose,Urine (UA) Negative (Negative); Ketones,Urine Negative (Negative); Leukocyte Esterase,Urine Small (Negative); Mucus,Urine Occasional /hpf; Nitrite,Urine Negative (Negative); PH, Urine 5.5 (5.0-8.0); Protein,Urine 1+ (Negative); RBC,Urine 29 /hpf (0-5); Specific Gravity,Urine 1.017 (1.001-1.035); Urobilinogen,Urine <2.0 mg/dL (<2.0); WBC,Urine 20 /hpf (0-5)
[2017-10-27 16:59] LABS: Partial Thromboplastin Time 24.7 sec (22.0-30.0); Prothrombin Time 9.8 sec (9.0-12.0)
[2017-10-27 17:00] LABS: ALT 51 U/L (21-72); AST 28 U/L (17-59); Albumin 3.6 g/dL (3.5-5.0); Alkaline Phosphatase 105 U/L (38-126); Anion Gap 12 mmol/L; Blood Urea Nitrogen 16 mg/dL (9-20); Calcium 9.1 mg/dL (8.4-10.2); Carbon Dioxide 25 mmol/L (22-30); Chloride 105 mmol/L (98-107); Glucose 155 mg/dL (74-99); Potassium 4.1 mmol/L (3.5-5.1); Sodium 142 mmol/L (137-145); Total Bilirubin 0.7 mg/dL (0.2-1.3); Total Protein 6.7 g/dL (6.3-8.2)
--- NOTE | 2017-10-27 17:47 | CT ---
EXAMINATION TYPE: CT abdomen pelvis w con DATE OF EXAM: 10/27/2017 COMPARISON: Prior CT 10/05/2017 HISTORY: Post op lower abd pain after prostate removal on 09/25/17. CT DLP: 3954.4 mGycm Automated exposure control for dose reduction was used. TECHNIQUE: Helical acquisition of images from the lung bases through the pelvis have been completed. CONTRAST: Performed without Oral Contrast and with IV Contrast, patient injected with 100ml mL of Omnipaque 300 . FINDINGS: LUNG BASES: No significant abnormality is appreciated. AORTA: No significant abnormality is appreciated. LIVER/GB: Stable, low-attenuation may be indicative of hepatic steatosis, gallbladder shows some depe ndent hyperdensity which may represent a small stone near the gallbladder neck PANCREAS: No significant abnormality is seen. SPLEEN: No significant abnormality is seen. ADRENALS: No significant abnormality is seen. KIDNEYS: Stable appearance, there may be partial UPJ obstruction within the left kidney REPRODUCTIVE ORGANS: Patient is post prostatectomy. Along the anterior abdominal wall inferiorly the fluid collection shows air and abnormal thickening of the rectus musculature on the left as compared to right similar to prior exam, there is associated skin thickening compatible with cellulitis. Wound has dehisced at the lower margin BOWEL: No significant abnormality is seen. FREE AIR: No Free Air visible. ASCITES: None visible. PELVIC ADENOPATHY: None visualized. RETROPERITONEAL ADENOPATHY: No Retroperitoneal Adenopathy visible. URINARY BLADDER: No interval change. OSSEOUS STRUCTURES: No significant abnormality is seen. IMPRESSION: FINDINGS COMPATIBLE WITH ABDOMINAL WALL ABSCESS AND CELLULITIS, THE ABSCESS MAY BE DECOMPRESSED due t o wound dehiscence inferiorly.
[2017-10-27] MEDS ORDERED: ACETAMINOPHEN TAB 325 MG TAB PO PRN (18:04)
[2017-10-27] MEDS ORDERED: NALOXONE 0.4 MG/ML 1 ML VIAL IV PRN (18:04)
[2017-10-27] MEDS ORDERED: ONDANSETRON 4 MG/2 ML VIAL IVP PRN (18:04)
[2017-10-27] MEDS ORDERED: HYDROmorphone 0.5 MG/0.5 ML SYRINGE IVP PRN (18:04)
[2017-10-27] MEDS ORDERED: PIPERACILLIN-TAZOBACTAM 3.375 GM in DEXTROSE/WATER 1 50ML.BAG IVPB STA (18:06)
[2017-10-27] MEDS ORDERED: VANCOMYCIN IV PER PHARMACY 1 EACH MISC MISCELLANE PRN (18:07)
[2017-10-27] MEDS ORDERED: SODIUM CHLORIDE 0.9% 1,000 ML IV STA (18:19)
[2017-10-27] MEDS ORDERED: VANCOMYCIN 2,000 MG in SODIUM CHLORIDE 0.9% 500 ML IVPB ONE (20:00)
[2017-10-27] MEDS: HYDROmorphone 2 MG/ML 1 ML SYRINGE IVP PRN (21:27)
[2017-10-28] MEDS: HYDROmorphone 2 MG/ML 1 ML SYRINGE IVP PRN ×4 (01:15→19:15)
[2017-10-28] MEDS: PIPERACILLIN-TAZOBACTAM 3.375 GM in DEXTROSE/WATER 1 50ML.BAG IVPB SCH ×2 (03:12→13:43)
[2017-10-28] MEDS ORDERED: VANCOMYCIN 2,000 MG in SODIUM CHLORIDE 0.9% 500 ML IVPB SCH (07:00)
[2017-10-28] MEDS: HYDROcodone/APAP 5-325MG 1 EACH TAB PO PRN ×2 (09:59→17:20)
--- NOTE | 2017-10-28 14:08 | P.HPIM ---
History of Present Illness 55-year-old gentleman came in to emergency department with the complaints of abdominal wound infection pus coming out of it patient was sent in here from a physician from [place] [facility]. Patient was started on IV antibiotics vancomycin and Zosyn. CAT scan of the abdomen was obtain highly suspicious for Abscess clinically patient has induration appears to have an abscess. We'll obtain wound cultures blood cultures. Patient we may have to transfer him to [facility] where he underwent surgical procedure for his prostate postoperatively his process abdominal wall got infected at the incisional site area and the patient received IV antibiotics in the form of vancomycin subsequently sent home with home care. Comes back again with increased pus coming out of that. Infectious disease was consulted but patient will need surgical evaluation for that I may need to answer him back to [facility]. For now we will obtain wound cultures local wound care and IV antibiotics. Patient is presently on vancomycin and Zosyn. Patient did not have any fever does have leukocytosis denied any diarrhea at this time denied any cough runny nose dysuria Review of Systems REVIEW OF SYSTEMS: CONSTITUTIONAL: No fever, no malaise, no fatigue. HEENT: No recent visual problems or hearing problems. Denied any sore throat. CARDIOVASCULAR: No chest pain, orthopnea, PND, no palpitations, no syncope. PULMONARY: No shortness of breath, no cough, no hemoptysis. GASTROINTESTINAL: No diarrhea, no nausea, no vomiting, no abdominal pain. Normoactive bowel sounds. NEUROLOGICAL: No headaches, no weakness, no numbness. HEMATOLOGICAL: Denies any bleeding or petechiae. GENITOURINARY: Denies any burning micturition, frequency, or urgency. MUSCULOSKELETAL/RHEUMATOLOGICAL: Denies any joint pain, swelling, or any muscle pain. ENDOCRINE: Denies any polyuria or polydipsia. The rest of the 14-point review of systems is negative. Past Medical History Past Medical History: Asthma, Cancer, GERD/Reflux, Hyperlipidemia, Pneumonia, Prostate Disorder Additional Past Medical History / Comment(s): peripheral edema. 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 History of Any Multi-Drug Resistant Organisms: None Reported Date of last positivie culture/infection: 10/01/17 MDRO Source:: incision Past Surgical History: Appendectomy, Prostate Surgery Additional Past Surgical History / Comment(s): as youth fell on broken glass jar and cut tendons lt writs-had sx to repair.left wrist carpal tunnel release, , left shoulder rotator reconstruction and has a pin in place, cystectomy tailbone, open abdominal surgery to remove prsotate Past Anesthesia/Blood Transfusion Reactions: No Reported Reaction Smoking Status: Never smoker - Past Family History Father Family Medical History: Congestive Heart Failure (CHF), Hypertension Mother Additional Family Medical History / Comment(s): depression Medications and Allergies Home Medications Medication Instructions Recorded Confirmed Type Albuterol Inhaler [Ventolin Hfa 2 puff INHALATION RT-Q6H PRN 04/27/14 10/27/17 History Inhaler] Hydrochlorothiazide [Hydrodiuril] 25 mg PO HS 04/27/14 10/27/17 History Sertraline [Zoloft] 100 mg PO DAILY 04/27/14 10/27/17 History Simethicone [Gas-X] 125 mg PO DAILY PRN 10/01/17 10/27/17 History traZODone HCL 50 mg PO HS 10/01/17 10/27/17 History Simvastatin [Zocor] 80 mg PO HS 10/05/17 10/27/17 History Ibuprofen [Motrin] 800 mg PO Q6H PRN 10/27/17 10/27/17 History Allergies Allergy/AdvReac Type Severity Reaction Status Date / Time adhesive tape Allergy Rash/Hives Verified 10/27/17 16:08 Physical Exam Vitals: Vital Signs Temp Pulse Pulse Resp BP BP Pulse Ox 10/28/17 07:00 98.3 F 94 16 140/71 94 L 10/28/17 01:02 97.7 F 102 H 17 126/85 95 10/27/17 18:10 98.6 F 87 16 115/55 95 10/27/17 16:52 98.7 F 97 16 135/78 95 10/27/17 15:59 99.2 F 100 18 155/71 98 Intake and Output 10/27/17 10/28/17 10/28/17 22:59 06:59 14:59 Intake Total 1300 620 Balance 1300 620 Intake: Intake, IV Titration 800 Amount Piperacillin-Tazobactam 3 100 .375 gm In Dextrose/Water 1 50ml.bag @ 12.5 mls/hr IVPB Q8H [place] Rx#: [id number] Sodium Chloride 0.9% 1, 200 000 ml @ 100 mls/hr IV . Q10H [facility] Rx#:[id number] Vancomycin 2,000 mg In 500 Sodium Chloride 0.9% 500 ml @ 167 mls/hr IVPB 0700 ,2200 [place] Rx#:[id number] Oral 500 620 Other: Voiding Method Toilet # Voids 1 2 Weight 137.438 kg PHYSICAL EXAMINATION: GENERAL: The patient is alert and oriented x3, not in any acute distress. Well developed, well nourished. HEENT: Pupils are round and equally reacting to light. EOMI. No scleral icterus. No conjunctival pallor. Normocephalic, atraumatic. No pharyngeal erythema. No thyromegaly. CARDIOVASCULAR: S1 and S2 present. No murmurs, rubs, or gallops. PULMONARY: Chest is clear to auscultation, no wheezing or crackles. ABDOMEN: Suprapubic abdominal wall has a wound and it tract it appears to have induration appears to have actually an abscess had dressing in one of the tunneling wound I in the suprapubic area. She does have purulent discharge from the wound MUSCULOSKELETAL: No joint swelling or deformity. EXTREMITIES: No cyanosis, clubbing, or pedal edema. NEUROLOGICAL: Gross neurological examination did not reveal any focal deficits. SKIN: No rashes. Results CBC & Chem 7: 10/27/17 16:41 10/27/17 16:41 Labs: Abnormal Lab Results - Last 24 Hours (Table) 10/27/17 10/27/17 10/27/17 Range/Units 16:36 16:41 16:41 WBC 15.9 H (3.8-10.6) k/uL Hgb 12.2 L (13.0-17.5) gm/dL Neutrophils # 11.5 H (1.3-7.7) k/uL Monocytes # 1.6 H (0-1.0) k/uL Glucose 155 H (74-99) mg/dL Urine Protein 1+ H (Negative) Urine Blood Small H (Negative) Ur Leukocyte Esterase Small H (Negative) Urine RBC 29 H (0-5) /hpf Urine WBC 20 H (0-5) /hpf Amorphous Sediment Rare H (None) /hpf Urine Mucus Occasional H (None) /hpf Microbiology - Last 24 Hours (Table) 10/27/17 16:36 Urine Culture - Preliminary Urine,Voided Assessment and Plan Plan: -Abdominal wall abscess and recurrent postsurgical wound infection: Patient will be continued on IV antibiotics, patient need to be transferred to [facility] for surgical drainage of the abscess infectious disease here was consulted. -Hypertension next and-depression -Past esophageal reflux disease -Hyperlipidemia -Asthma without any acute exacerbation -Obesity For above-mentioned chronic medical problems patient will be resumed on appropriate home medications.
--- NOTE | 2017-10-28 14:09 | P.DS ---
Providers Date of admission: 10/27/17 18:08 Attending physician: Cruzito Almonte Consults: 10/27/17 18:04 Consult Physician Stat Consulting Provider: Toshia Rucker Consult Reason/Comments: Abdominal wall cellulitis, abscess Do you want consulting provider notified?: Yes Primary care physician: Gary Pagan [facility] Course: Please refer to my HPI and patient probably will be transferred to [facility] today Patient Condition at Discharge: Stable Plan - Discharge Summary Discharge Rx Participant: Yes New Discharge Prescriptions: No Action Sertraline [Zoloft] 100 mg PO DAILY Hydrochlorothiazide [Hydrodiuril] 25 mg PO HS Albuterol Inhaler [Ventolin Hfa Inhaler] 2 puff INHALATION RT-Q6H PRN PRN Reason: Shortness Of Breath traZODone HCL 50 mg PO HS Simethicone [Gas-X] 125 mg PO DAILY PRN PRN Reason: Constipation Simvastatin [Zocor] 80 mg PO HS Ibuprofen [Motrin] 800 mg PO Q6H PRN PRN Reason: Pain Discharge Medication List Albuterol Inhaler [Ventolin Hfa Inhaler] 2 puff INHALATION RT-Q6H PRN 04/27/14 [ History] Hydrochlorothiazide [Hydrodiuril] 25 mg PO HS 04/27/14 [History] Sertraline [Zoloft] 100 mg PO DAILY 04/27/14 [History] Simethicone [Gas-X] 125 mg PO DAILY PRN 10/01/17 [History] traZODone HCL 50 mg PO HS 10/01/17 [History] Simvastatin [Zocor] 80 mg PO HS 10/05/17 [History] Ibuprofen [Motrin] 800 mg PO Q6H PRN 10/27/17 [History] Follow up Appointment(s)/Referral(s): Gary Pagan DO [Primary Care Provider] - 1-2 days
[2017-10-28] MEDS ORDERED: GENTAMICIN PER PHARMACY MISCELLANE PRN (15:35)
[2017-10-28] MEDS: GENTAMICIN 170 MG in SODIUM CHLORIDE 0.9% 100 ML IVPB SCH (17:59)
[2017-10-28] MEDS: AMPICILLIN-SULBACTAM 3 GM in SODIUM CHLORIDE 0.9% 100 ML IVPB SCH (19:15)
--- NOTE | 2017-10-28 21:49 | P.CONS ---
History of Present Illness - Reason for Consult Consult date: 10/28/17 - Chief Complaint Abdominal pain - History of Present Illness 56-year-old male presents to Hospital from the clinic review was evaluated because of difficulties with his abdominal wall. This pleasant gentleman has a history of prostate cancer. He underwent a radical prostatectomy the [facility] in [place]. Because of his obesity he could not have a robotic procedure. He relates that he is starting to feel somewhat better. However upon presentation to the clinic there is evidence of grossly purulent material emanating from the inferior wound on his abdominal wall. Because of this he was directed to hospital. He is not have a bit of an infection to that site and has been on outpatient oral antibiotic therapy. Despite this is site has worsened. He has purulent drainage and evidence of erythema tenderness in extensive induration to the abdominal wall. He has been admitted and been seen locally by surgery. However because of surgeries been done at the [facility]. He to be transferred there for any further surgical intervention. The patient has had a low-grade fever butbegin chills or rigors. Does not feel severely ill at this time. But does feel a bit fatigued. He's been trying to recover from his prostate surgery. He had this times a night high-grade fevers chills or rigors or sweats. His appetite is been adequate. He denies nausea or emesis or diarrhea. Denies any urinary symptoms is burning discomfort or urgency. He has no flank pains. No other skin rashes are noted. Review of Systems HEENT:Denies headache or acute visual change. Denies sinus or mouth discomforts. Denies neck stiffness or pain. Denies significant oral cavity pain. Denies difficulty on swallowing. Lungs: Denies significant shortness of breath, cough, sputum production, or hemoptysis. Cardiovascular: Denies significant shortness of breath, chest pain, chest wall pain, orthopnea, dyspnea on exertion, syncope Gastrointestinal:Denies nausea, vomiting, diarrhea, constipation, hematemesis, melena, hematochezia. No no significant change of bowel habit noticed. Musculoskeletal: denies significant myalgias or arthralgias. No new joint swelling. Denies new back pain. Skin: As per the HPI abscess abdominal wall below the umbilicus Neuro: Denies headache or visual change. Denies any new onset weakness or difficulty with ambulation. Denies falls or seizures. Psychiatric:Denies anxiety or depression. Endocrine: Denies significant fatigue, denies significant weight loss or weight gain. Past Medical History Past Medical History: Asthma, Cancer, GERD/Reflux, Hyperlipidemia, Pneumonia, Prostate Disorder Additional Past Medical History / Comment(s): peripheral edema. 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 History of Any Multi-Drug Resistant Organisms: None Reported Year Discovered:: 10/01/17 MDRO Source:: incision Past Surgical History: Appendectomy, Prostate Surgery Additional Past Surgical History / Comment(s): as youth fell on broken glass jar and cut tendons lt writs-had sx to repair.left wrist carpal tunnel release, , left shoulder rotator reconstruction and has a pin in place, cystectomy tailbone, open abdominal surgery to remove prsotate Past Anesthesia/Blood Transfusion Reactions: No Reported Reaction Additional Psychological History / Comment(s): and lives with family home with his and 15-year-old son adult daughter is now on her own. 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 No international travel since then no other ill contacts. No animal exposures Smoking Status: Never smoker - Past Family History Father Family Medical History: Congestive Heart Failure (CHF), Hypertension Mother Additional Family Medical History / Comment(s): depression Medications and Allergies Home Medications and Allergies Comment(s): Current Medications Acetaminophen (Tylenol Tab) 650 mg PO Q6HR PRN PRN Reason: Mild Pain or Fever > 100.5 Hydrocodone Bitart/Acetaminophen (Archie 5-325) 1 each PO Q4HR PRN PRN Reason: Moderate Pain Last Admin: 10/28/17 17:20 Dose: 1 each Hydromorphone HCl (Dilaudid) 0.5 mg IVP Q3HR PRN PRN Reason: Moderate Pain Hydromorphone HCl (Dilaudid) 1 mg IVP Q3HR PRN PRN Reason: Severe Pain Last Admin: 10/28/17 19:15 Dose: 1 mg Ampicillin Sodium/Sulbactam (Sodium 3 gm/ Sodium Chloride) 100 mls @ 100 mls/ hr IVPB Q6HR [place] Last Admin: 10/28/17 19:15 Dose: 100 mls/hr Gentamicin Sulfate 170 mg/ (Sodium Chloride) 104.25 mls @ 104.25 mls/hr IVPB Q8HR [facility] Last Admin: 10/28/17 17:59 Dose: 104.25 mls/hr Miscellaneous Information (Rx Info: Iv Contrast Was Given) 1 each MISCELLANE DAILY PRN PRN Reason: Per Protocol Stop: 10/29/17 16:10 Last Admin: 10/27/17 16:45 Dose: 1 each Miscellaneous Information (Gentamicin Trough Due) 0 each MISCELLANE DIRECTED ONE Stop: 10/29/17 15:01 Miscellaneous Information (Gentamicin Peak Due) 0 each MISCELLANE DIRECTED ONE Stop: 10/29/17 17:31 Naloxone HCl (Narcan) 0.2 mg IV Q2M PRN PRN Reason: Opioid Reversal Ondansetron HCl (Zofran) 4 mg IVP Q8HR PRN PRN Reason: Nausea And Vomiting Home Medications Medication Instructions Recorded Confirmed Type Albuterol Inhaler [Ventolin Hfa 2 puff INHALATION RT-Q6H PRN 04/27/14 10/27/17 History Inhaler] Hydrochlorothiazide [Hydrodiuril] 25 mg PO HS 04/27/14 10/27/17 History Sertraline [Zoloft] 100 mg PO DAILY 04/27/14 10/27/17 History Simethicone [Gas-X] 125 mg PO DAILY PRN 10/01/17 10/27/17 History traZODone HCL 50 mg PO HS 10/01/17 10/27/17 History Simvastatin [Zocor] 80 mg PO HS 10/05/17 10/27/17 History Ibuprofen [Motrin] 800 mg PO Q6H PRN 10/27/17 10/27/17 History Allergies Allergy/AdvReac Type Severity Reaction Status Date / Time adhesive tape Allergy Rash/Hives Verified 10/27/17 16:08 Physical Exam Vitals: Vital Signs Temp Pulse Resp BP Pulse Ox 10/28/17 15:00 97.8 F 86 16 114/61 94 L 10/28/17 07:00 98.3 F 94 16 140/71 94 L 10/28/17 01:02 97.7 F 102 H 17 126/85 95 Intake and Output 10/28/17 10/28/17 10/28/17 06:59 14:59 22:59 Intake Total 1300 2370 Balance 1300 2370 Intake: Intake, IV Titration 800 1250 Amount Piperacillin-Tazobactam 3 100 .375 gm In Dextrose/Water 1 50ml.bag @ 12.5 mls/hr IVPB Q8H [place] Rx#: [id number] Sodium Chloride 0.9% 1, 200 750 000 ml @ 100 mls/hr IV . Q10H [facility] Rx#:[id number] Vancomycin 2,000 mg In 500 500 Sodium Chloride 0.9% 500 ml @ 167 mls/hr IVPB 0700 ,2200 [place] Rx#:[id number] Oral 500 1120 Other: # Voids 2 2 Pleasant 56-year-old male who has superobesity. Does not seem to be very uncomfortable the moment. But is having significant drainage from the abdominal lesion. Obese, HEENT: Anicteric conjunctiva are pink and moist nasal mucosa grossly intact without significant lesions, there is no thrush. Neck: The neck is supple without significant lymphadenopathy or thyromegaly. Lungs: Good bilateral air entry without significant crackles or wheezing. There is no significant bronchial sounds. There is no egophony or dullness. Heart: Regular rate and rhythm with an audible S1-S2, no S3 no S4. There is no significant murmur click or rub, PMI was nondisplaced. Abdomen: Positive bowel sounds soft and nontender without palpable masses or organomegaly. There was no guarding or rebound. Below the umbilicus is evidence of the abdominal abscess. It is currently measuring approximately 2 x 2 with a depth of 3 cm. Grossly purulent material emanates when it is manipulated. There is an area of erythema about 6 cm she abdominal wall and there is also a corresponding area of dense induration at this area of erythema. There some tenderness to the site. No other skin lesions are seen. There is no flank tenderness. Extremities: The upper extremities have excellent pulses they are symmetric, no significant petechiae or telangiectasia. No splinter hemorrhages were noted. The lower extremities are free from significant edema. The peripheral pulses were 2+ and symmetric. Neuro: Awake alert oriented to person place and time. There are no acute new gross focal sensory motor deficits. Results CBC & Chem 7: 10/27/17 16:41 10/27/17 16:41 Labs: Microbiology - Last 24 Hours (Table) 10/27/17 16:41 Blood Culture Gram Stain - Preliminary Blood 10/27/17 16:41 Blood Culture - Preliminary Blood 10/27/17 16:36 Urine Culture - Preliminary Urine,Voided Laboratory Results WBC 15.9 k/uL (3.8-10.6) H 10/27/17 16:41 RBC 4.30 m/uL (4.30-5.90) 10/27/17 16:41 Hgb 12.2 gm/dL (13.0-17.5) L 10/27/17 16:41 Hct 39.3 % (39.0-53.0) 10/27/17 16:41 MCV 91.2 fL (80.0-100.0) 10/27/17 16:41 MCH 28.4 pg (25.0-35.0) 10/27/17 16:41 MCHC 31.2 g/dL (31.0-37.0) 10/27/17 16:41 RDW 14.9 % (11.5-15.5) 10/27/17 16:41 Plt Count 408 k/uL (150-450) 10/27/17 16:41 Neutrophils % 73 % 10/27/17 16:41 Lymphocytes % 11 % 10/27/17 16:41 Monocytes % 10 % 10/27/17 16:41 Eosinophils % 3 % 10/27/17 16:41 Basophils % 1 % 10/27/17 16:41 Neutrophils # 11.5 k/uL (1.3-7.7) H 10/27/17 16:41 Lymphocytes # 1.7 k/uL (1.0-4.8) 10/27/17 16:41 Monocytes # 1.6 k/uL (0-1.0) H 10/27/17 16:41 Eosinophils # 0.5 k/uL (0-0.7) 10/27/17 16:41 Basophils # 0.1 k/uL (0-0.2) 10/27/17 16:41 Hypochromasia Slight 10/27/17 16:41 PT 9.8 sec (9.0-12.0) 10/27/17 16:41 INR 1.0 (<1.2) 10/27/17 16:41 APTT 24.7 sec (22.0-30.0) 10/27/17 16:41 Sodium 142 mmol/L (137-145) 10/27/17 16:41 Potassium 4.1 mmol/L (3.5-5.1) 10/27/17 16:41 Chloride 105 mmol/L (98-107) 10/27/17 16:41 Carbon Dioxide 25 mmol/L (22-30) 10/27/17 16:41 Anion Gap 12 mmol/L 10/27/17 16:41 BUN 16 mg/dL (9-20) 10/27/17 16:41 Creatinine 0.90 mg/dL (0.66-1.25) 10/27/17 16:41 Est GFR (MDRD) Af Amer >60 (>60 ml/min/1.73 sqM) 10/27/17 16:41 Est GFR (MDRD) Non-Af >60 (>60 ml/min/1.73 sqM) 10/27/17 16:41 Glucose 155 mg/dL (74-99) H 10/27/17 16:41 Plasma Lactic Acid Guru 1.4 mmol/L (0.7-2.0) 10/27/17 16:41 Calcium 9.1 mg/dL (8.4-10.2) 10/27/17 16:41 Total Bilirubin 0.7 mg/dL (0.2-1.3) 10/27/17 16:41 AST 28 U/L (17-59) 10/27/17 16:41 ALT 51 U/L (21-72) 10/27/17 16:41 Alkaline Phosphatase 105 U/L (38-126) 10/27/17 16:41 Total Protein 6.7 g/dL (6.3-8.2) 10/27/17 16:41 Albumin 3.6 g/dL (3.5-5.0) 10/27/17 16:41 Urine Color Yellow 10/27/17 16:36 Urine Appearance Clear (Clear) 10/27/17 16:36 Urine pH 5.5 (5.0-8.0) 10/27/17 16:36 Ur Specific [place] 1.017 (1.001-1.035) 01/12/18 16:36 Urine Protein 1+ (Negative) H 10/27/17 16:36 Urine Glucose (UA) Negative (Negative) 10/27/17 16:36 Urine Ketones Negative (Negative) 10/27/17 16:36 Urine Blood Small (Negative) H 10/27/17 16:36 Urine Nitrite Negative (Negative) 10/27/17 16:36 Urine Bilirubin Negative (Negative) 10/27/17 16:36 Urine Urobilinogen <2.0 mg/dL (<2.0) 10/27/17 16:36 Ur Leukocyte Esterase Small (Negative) H 10/27/17 16:36 Urine RBC 29 /hpf (0-5) H 10/27/17 16:36 Urine WBC 20 /hpf (0-5) H 10/27/17 16:36 Amorphous Sediment Rare /hpf (None) H 10/27/17 16:36 Urine Mucus Occasional /hpf (None) H 10/27/17 16:36 Microbiology 10/27/17 16:41 Blood Blood Culture Gram Stain - Preliminary 10/27/17 16:41 Blood Blood Culture - Preliminary 10/27/17 16:36 Urine,Voided Urine Culture - Preliminary Assessment and Plan (1) Postoperative wound infection Narrative/Plan: 56-year-old male presents to the emergency center as a referral from his clinic because of difficulties with abscess to his abdominal wall. Is noted he had a recent radical prostatectomy to an open procedure is had difficulty with healing of the incision. Abscesses form. Computed tomography scan shows evidence of ongoing abscess formation at this time. Because it is open is not under great pressure. There is extensive area of induration related to this infectious process. All cultures are pending antibiotic therapy with piperacillin tazobactam and vancomycin are being utilized. Await further culture data. Urinalysis is mildly abnormal and urine culture is pending. At this point in time continue ongoing supportive care. The ulceration is packed with the iodoform gauze and AVD pads to absorb drainage. The patient is up-to-date with his tetanus vaccine. Multivitamin is added. Ensure that he has a high-protein diet. Will be transferred to the [place] for surgical intervention when bed available. Current Visit: No Status: Acute Code(s): T81.4XXA - INFECTION FOLLOWING A PROCEDURE, INITIAL ENCOUNTER SNOMED Code(s): 81512382 (2) UTI (urinary tract infection) Current Visit: No Status: Acute Code(s): N39.0 - URINARY TRACT INFECTION, SITE NOT SPECIFIED SNOMED Code(s): 31764354
[2017-10-29] MEDS: HYDROcodone/APAP 5-325MG 1 EACH TAB PO PRN ×4 (00:04→17:43)
[2017-10-29] MEDS: AMPICILLIN-SULBACTAM 3 GM in SODIUM CHLORIDE 0.9% 100 ML IVPB SCH ×5 (00:04→23:06)
[2017-10-29] MEDS: HYDROmorphone 2 MG/ML 1 ML SYRINGE IVP PRN ×4 (00:56→20:35)
[2017-10-29] MEDS: GENTAMICIN 170 MG in SODIUM CHLORIDE 0.9% 100 ML IVPB SCH ×3 (00:58→16:26)
[2017-10-29 07:52] LABS: Anion Gap 7 mmol/L; Blood Urea Nitrogen 11 mg/dL (9-20); Calcium 9.2 mg/dL (8.4-10.2); Carbon Dioxide 30 mmol/L (22-30); Chloride 105 mmol/L (98-107); Glucose 93 mg/dL (74-99); Potassium 4.6 mmol/L (3.5-5.1); Sodium 142 mmol/L (137-145)
[2017-10-29] MEDS ORDERED: IBUPROFEN 800 MG TAB PO PRN (10:13)
[2017-10-29] MEDS ORDERED: KETOROLAC 30 MG/ML 1 ML VIAL IVP PRN (10:16)
[2017-10-29] MEDS ORDERED: POLYETHYLENE GLYCOL 3350 17 GM POWD.PACK PO PRN (10:16)
--- NOTE | 2017-10-29 10:40 | P.PN ---
Subjective 56-year-old gentleman admitted for abdominal wall abscess encephalitis and patient is presently on Unasyn and gentamicin infectious disease evaluated the patient we're unable to send him to be a until Monday. Patient although is clinically doing well patient will be resumed on his home medications patient will be started on DVT prophylaxis and the GI prophylaxis and patient will be started on ketorolac to avoid opiate analgesia patient is not constipated at this point of time patient will be on bowel regimen as well. Constitutional: Denied any fatigue denied any fever. Cardio vascular: denied any chest pain, palpitations Gastrointestinal denied any nausea vomiting Pulmonary: Denied any shortness of breath cough Neurologic denied any new focal deficits Objective - Vital Signs Vital signs: Vital Signs Temp 98.5 F 10/29/17 07:00 Pulse 89 10/29/17 07:00 Resp 16 10/29/17 07:00 BP 132/65 10/29/17 07:00 Pulse Ox 96 10/29/17 07:00 Intake & Output 10/28/17 10/29/17 10/29/17 18:59 06:59 18:59 Intake Total 2370 800 660 Balance 2370 800 660 Intake: Intake, IV Titration 1250 800 Amount Sodium Chloride 0.9% 1, 750 800 000 ml @ 100 mls/hr IV . Q10H [facility] Rx#:[id number] Vancomycin 2,000 mg In 500 Sodium Chloride 0.9% 500 ml @ 167 mls/hr IVPB 0700 ,2200 [place] Rx#:[id number] Oral 1120 660 Other: # Voids 2 3 - Exam PHYSICAL EXAMINATION: GENERAL: The patient is alert and oriented x3, not in any acute distress. Well developed, well nourished. HEENT: Pupils are round and equally reacting to light. EOMI. No scleral icterus. No conjunctival pallor. Normocephalic, atraumatic. No pharyngeal erythema. No thyromegaly. CARDIOVASCULAR: S1 and S2 present. No murmurs, rubs, or gallops. PULMONARY: Chest is clear to auscultation, no wheezing or crackles. ABDOMEN: Suprapubic abdominal wall has a wound and it tract it appears to have induration appears to have actually an abscess had dressing in one of the tunneling wound I in the suprapubic area. She does have purulent discharge from the wound MUSCULOSKELETAL: No joint swelling or deformity. EXTREMITIES: No cyanosis, clubbing, or pedal edema. NEUROLOGICAL: Gross neurological examination did not reveal any focal deficits. SKIN: No rashes. - Labs CBC & Chem 7: 10/27/17 16:41 10/29/17 06:57 Labs: Microbiology - Last 24 Hours (Table) 10/29/17 00:15 Anaerobic Culture - Preliminary Abdomen 10/29/17 00:15 Wound Culture - Preliminary Abdomen 10/27/17 16:36 Urine Culture - Final Urine,Voided 10/27/17 16:41 Blood Culture Gram Stain - Preliminary Blood 10/27/17 16:41 Blood Culture - Preliminary Blood Assessment and Plan Plan: -Abdominal wall abscess and recurrent postsurgical wound infection: Patient will be continued on IV antibiotics, she will be transferred to and Monday and patient is presently on Unasyn and gentamicin -Hypertension: Patient will be resumed on hydrochlorothiazide depression -Past esophageal reflux disease -Hyperlipidemia -Asthma without any acute exacerbation -Obesity For above-mentioned chronic medical problems patient will be resumed on appropriate home medications.
[2017-10-29] MEDS: HEPARIN SODIUM,PORCINE 5,000 UNIT/ML 1 ML VIAL SQ SCH ×3 (12:01→23:06)
[2017-10-29] MEDS ORDERED: GENTAMICIN TROUGH DUE 1 EACH MISC MISCELLANE ONE (15:00)
[2017-10-29] MEDS ORDERED: GENTAMICIN PEAK DUE 1 EACH MISC MISCELLANE ONE (17:30)
[2017-10-29] MEDS: ATORVASTATIN 40 MG TAB PO SCH ×2 (20:35→20:36)
[2017-10-29] MEDS: HYDROCHLOROTHIAZIDE 25 MG TAB PO SCH (20:36)
[2017-10-29] MEDS: FAMOTIDINE 20 MG TAB PO SCH (20:36)
[2017-10-29] MEDS: ALBUTEROL NEBULIZED 2.5 MG/3 ML INHALATION PRN (20:38)
[2017-10-30] MEDS: GENTAMICIN 120 MG in SODIUM CHLORIDE 0.9% 100 ML IVPB SCH ×2 (02:05→09:28)
[2017-10-30] MEDS: HYDROcodone/APAP 5-325MG 1 EACH TAB PO PRN ×3 (04:56→21:55)
[2017-10-30] MEDS: AMPICILLIN-SULBACTAM 3 GM in SODIUM CHLORIDE 0.9% 100 ML IVPB SCH ×3 (04:56→17:52)
[2017-10-30 07:09] LABS: HCT 35.7 % (39.0-53.0); HGB 11.3 gm/dL (13.0-17.5); Hypochromasia Slight; MCH 28.4 pg (25.0-35.0); MCHC 31.7 g/dL (31.0-37.0); MCV 89.8 fL (80.0-100.0); Platelet Count 388 k/uL (150-450); RBC 3.98 m/uL (4.30-5.90); RDW 13.2 % (11.5-15.5); WBC 10.9 k/uL (3.8-10.6)
[2017-10-30 07:45] LABS: Anion Gap 8 mmol/L; Blood Urea Nitrogen 10 mg/dL (9-20); Calcium 9.4 mg/dL (8.4-10.2); Carbon Dioxide 31 mmol/L (22-30); Chloride 102 mmol/L (98-107); Glucose 99 mg/dL (74-99); Potassium 4.1 mmol/L (3.5-5.1); Sodium 141 mmol/L (137-145)
[2017-10-30] MEDS: HYDROmorphone 2 MG/ML 1 ML SYRINGE IVP PRN ×3 (08:33→23:47)
[2017-10-30] MEDS: HEPARIN SODIUM,PORCINE 5,000 UNIT/ML 1 ML VIAL SQ SCH ×3 (08:35→23:43)
[2017-10-30] MEDS: FAMOTIDINE 20 MG TAB PO SCH ×2 (08:35→19:45)
[2017-10-30] MEDS: SERTRALINE 100 MG TAB PO SCH (08:35)
--- NOTE | 2017-10-30 10:55 | P.PN ---
Subjective 56-year-old gentleman admitted for abdominal wall abscess encephalitis and patient is presently on Unasyn and gentamicin infectious disease evaluated the patient we're unable to send him to be a until Monday. Patient although is clinically doing well patient will be resumed on his home medications patient will be started on DVT prophylaxis and the GI prophylaxis and patient will be started on ketorolac to avoid opiate analgesia patient is not constipated at this point of time patient will be on bowel regimen as well. 10/30/2016 No overnight events patient is doing well and patient is awaiting transfer to [facility] tomorrow patient won't cultures are showing staph aureus patient is presently on gentamicin and Zosyn, antibiotics at being managed by infectious disease. Constitutional: Denied any fatigue denied any fever. Cardio vascular: denied any chest pain, palpitations Gastrointestinal denied any nausea vomiting Pulmonary: Denied any shortness of breath cough Neurologic denied any new focal deficits Objective - Vital Signs Vital signs: Vital Signs Temp 98.1 F 10/30/17 07:00 Pulse 81 10/30/17 07:00 Resp 16 10/30/17 07:00 BP 132/85 10/30/17 07:00 Pulse Ox 94 L 10/30/17 07:00 Intake & Output 10/29/17 10/30/17 10/30/17 18:59 06:59 18:59 Intake Total 1360 1200 Balance 1360 1200 Intake: Intake, IV Titration 200 800 Amount Ampicillin-Sulbactam 3 gm 100 In Sodium Chloride 0.9% 100 ml @ 100 mls/hr IVPB Q6HR [place] Rx#:[id number] Gentamicin 120 mg In 800 Sodium Chloride 0.9% 100 ml @ 103 mls/hr IVPB Q8H [place] Rx#:[id number] Gentamicin 170 mg In 100 Sodium Chloride 0.9% 100 ml @ 104.25 mls/hr IVPB Q8HR [place] Rx#:[id number] Oral 1160 400 Other: Voiding Method Toilet # Voids 3 - Exam PHYSICAL EXAMINATION: GENERAL: The patient is alert and oriented x3, not in any acute distress. Well developed, well nourished. HEENT: Pupils are round and equally reacting to light. EOMI. No scleral icterus. No conjunctival pallor. Normocephalic, atraumatic. No pharyngeal erythema. No thyromegaly. CARDIOVASCULAR: S1 and S2 present. No murmurs, rubs, or gallops. PULMONARY: Chest is clear to auscultation, no wheezing or crackles. ABDOMEN: Suprapubic abdominal wall has a wound and it tract it appears to have induration appears to have actually an abscess had dressing in one of the tunneling wound I in the suprapubic area. She does have purulent discharge from the wound MUSCULOSKELETAL: No joint swelling or deformity. EXTREMITIES: No cyanosis, clubbing, or pedal edema. NEUROLOGICAL: Gross neurological examination did not reveal any focal deficits. SKIN: No rashes. - Labs CBC & Chem 7: 10/30/17 06:46 10/30/17 06:46 Labs: Abnormal Lab Results - Last 24 Hours (Table) 10/29/17 10/30/17 10/30/17 Range/Units 14:41 06:46 06:46 WBC 10.9 H (3.8-10.6) k/uL RBC 3.98 L (4.30-5.90) m/uL Hgb 11.3 L (13.0-17.5) gm/dL Hct 35.7 L (39.0-53.0) % Carbon Dioxide 31 H (22-30) mmol/L Gentamicin Trough 2.1 H* ug/mL Microbiology - Last 24 Hours (Table) 10/27/17 16:41 Blood Culture Gram Stain - Final Blood Blood Culture - Final Staphylococcus epidermidis 10/29/17 00:15 Gram Stain - Preliminary Abdomen Wound Culture - Preliminary Presumptive Staph aureus 10/29/17 00:15 Anaerobic Culture - Preliminary Abdomen Assessment and Plan Plan: -Abdominal wall abscess and recurrent postsurgical wound infection: Patient will be continued on IV antibiotics, she will be transferred to and Monday and patient is presently on Unasyn and gentamicin -Hypertension: Patient will be resumed on hydrochlorothiazide depression -Past esophageal reflux disease -Hyperlipidemia -Asthma without any acute exacerbation -Obesity For above-mentioned chronic medical problems patient will be resumed on appropriate home medications.
[2017-10-30] MEDS: ALBUTEROL NEBULIZED 2.5 MG/3 ML INHALATION PRN (19:45)
[2017-10-30] MEDS: HYDROCHLOROTHIAZIDE 25 MG TAB PO SCH (19:45)
[2017-10-30] MEDS ORDERED: VANCOMYCIN IV PER PHARMACY 1 EACH MISC MISCELLANE PRN (20:54)
--- NOTE | 2017-10-30 20:56 | P.PN ---
Subjective Progress Note Date: 10/30/17 Principal diagnosis: Abdominal abscess 56-year-old male presents to Hospital from the clinic review was evaluated because of difficulties with his abdominal wall. This pleasant gentleman has a history of prostate cancer. He underwent a radical prostatectomy the [facility] in [place]. Because of his obesity he could not have a robotic procedure. He relates that he is starting to feel somewhat better. However upon presentation to the clinic there is evidence of grossly purulent material emanating from the inferior wound on his abdominal wall. Because of this he was directed to hospital. He is not have a bit of an infection to that site and has been on outpatient oral antibiotic therapy. Despite this is site has worsened. He has purulent drainage and evidence of erythema tenderness in extensive induration to the abdominal wall. He has been admitted and been seen locally by surgery. However because of surgeries been done at the [facility]. He to be transferred there for any further surgical intervention. The patient has had a low-grade fever butbegin chills or rigors. Does not feel severely ill at this time. But does feel a bit fatigued. He's been trying to recover from his prostate surgery. He had this times a night high-grade fevers chills or rigors or sweats. His appetite is been adequate. He denies nausea or emesis or diarrhea. Denies any urinary symptoms is burning discomfort or urgency. He has no flank pains. No other skin rashes are noted. Objective - Vital Signs Vital signs: Vital Signs Temp 97.6 F 10/30/17 20:46 Pulse 88 10/30/17 20:46 Resp 16 10/30/17 20:46 BP 162/70 10/30/17 20:46 Pulse Ox 93 L 10/30/17 20:46 Intake & Output 10/30/17 10/30/17 10/31/17 06:59 18:59 06:59 Intake Total 1200 500 Balance 1200 500 Intake: Intake, IV Titration 800 Amount Gentamicin 120 mg In 800 Sodium Chloride 0.9% 100 ml @ 103 mls/hr IVPB Q[facility]H [facility] Rx#:[id number] Oral 400 500 Other: Voiding Method Toilet # Voids 3 2 - Exam Pleasant 56-year-old male who has superobesity. Does not seem to be very uncomfortable the moment. But is having significant drainage from the abdominal lesion. Obese, HEENT: Anicteric conjunctiva are pink and moist nasal mucosa grossly intact without significant lesions, there is no thrush. Neck: The neck is supple without significant lymphadenopathy or thyromegaly. Lungs: Good bilateral air entry without significant crackles or wheezing. There is no significant bronchial sounds. There is no egophony or dullness. Heart: Regular rate and rhythm with an audible S1-S2, no S3 no S4. There is no significant murmur click or rub, PMI was nondisplaced. Abdomen: Positive bowel sounds soft and nontender without palpable masses or organomegaly. There was no guarding or rebound. Below the umbilicus is evidence of the abdominal abscess. It is currently measuring approximately 2 x 2 with a depth of 3 cm. Grossly purulent material emanates when it is manipulated. There is an area of erythema about 6 cm she abdominal wall and there is also a corresponding area of dense induration at this area of erythema. There some tenderness to the site. No other skin lesions are seen. There is no flank tenderness. Extremities: The upper extremities have excellent pulses they are symmetric, no significant petechiae or telangiectasia. No splinter hemorrhages were noted. The lower extremities are free from significant edema. The peripheral pulses were 2+ and symmetric. Neuro: Awake alert oriented to person place and time. There are no acute new gross focal sensory motor deficits. - Labs CBC & Chem 7: 10/30/17 06:46 10/30/17 06:46 Labs: Abnormal Lab Results - Last 24 Hours (Table) 10/30/17 10/30/17 Range/Units 06:46 06:46 WBC 10.9 H (3.8-10.6) k/uL RBC 3.98 L (4.30-5.90) m/uL Hgb 11.3 L (13.0-17.5) gm/dL Hct 35.7 L (39.0-53.0) % Carbon Dioxide 31 H (22-30) mmol/L Microbiology - Last 24 Hours (Table) 10/27/17 16:41 Blood Culture Gram Stain - Final Blood Blood Culture - Final Staphylococcus epidermidis 10/29/17 00:15 Gram Stain - Preliminary Abdomen Wound Culture - Preliminary Presumptive Staph aureus Laboratory Results WBC 10.9 k/uL (3.8-10.6) H 10/30/17 06:46 RBC 3.98 m/uL (4.30-5.90) L 10/30/17 06:46 Hgb 11.3 gm/dL (13.0-17.5) L 10/30/17 06:46 Hct 35.7 % (39.0-53.0) L 10/30/17 06:46 MCV 89.8 fL (80.0-100.0) 10/30/17 06:46 MCH 28.4 pg (25.0-35.0) 10/30/17 06:46 MCHC 31.7 g/dL (31.0-37.0) 10/30/17 06:46 RDW 13.2 % (11.5-15.5) 10/30/17 06:46 Plt Count 388 k/uL (150-450) 10/30/17 06:46 Neutrophils % 73 % 10/27/17 16:41 Lymphocytes % 11 % 10/27/17 16:41 Monocytes % 10 % 10/27/17 16:41 Eosinophils % 3 % 10/27/17 16:41 Basophils % 1 % 10/27/17 16:41 Neutrophils # 11.5 k/uL (1.3-7.7) H 10/27/17 16:41 Lymphocytes # 1.7 k/uL (1.0-4.8) 10/27/17 16:41 Monocytes # 1.6 k/uL (0-1.0) H 10/27/17 16:41 Eosinophils # 0.5 k/uL (0-0.7) 10/27/17 16:41 Basophils # 0.1 k/uL (0-0.2) 10/27/17 16:41 Hypochromasia Slight 10/30/17 06:46 PT 9.8 sec (9.0-12.0) 10/27/17 16:41 INR 1.0 (<1.2) 10/27/17 16:41 APTT 24.7 sec (22.0-30.0) 10/27/17 16:41 Sodium 141 mmol/L (137-145) 10/30/17 06:46 Potassium 4.1 mmol/L (3.5-5.1) 10/30/17 06:46 Chloride 102 mmol/L (98-107) 10/30/17 06:46 Carbon Dioxide 31 mmol/L (22-30) H 10/30/17 06:46 Anion Gap 8 mmol/L 10/30/17 06:46 BUN 10 mg/dL (9-20) 10/30/17 06:46 Creatinine 0.87 mg/dL (0.66-1.25) 10/30/17 06:46 Est GFR (MDRD) Af Amer >60 (>60 ml/min/1.73 sqM) 10/30/17 06:46 Est GFR (MDRD) Non-Af >60 (>60 ml/min/1.73 sqM) 10/30/17 06:46 Glucose 99 mg/dL (74-99) 10/30/17 06:46 Plasma Lactic Acid Guru 1.4 mmol/L (0.7-2.0) 10/27/17 16:41 Calcium 9.4 mg/dL (8.4-10.2) 10/30/17 06:46 Total Bilirubin 0.7 mg/dL (0.2-1.3) 10/27/17 16:41 AST 28 U/L (17-59) 10/27/17 16:41 ALT 51 U/L (21-72) 10/27/17 16:41 Alkaline Phosphatase 105 U/L (38-126) 10/27/17 16:41 Total Protein 6.7 g/dL (6.3-8.2) 10/27/17 16:41 Albumin 3.6 g/dL (3.5-5.0) 10/27/17 16:41 Urine Color Yellow 10/27/17 16:36 Urine Appearance Clear (Clear) 10/27/17 16:36 Urine pH 5.5 (5.0-8.0) 10/27/17 16:36 Ur Specific S[place] 1.017 (1.001-1.035) 10/27/17 16:36 Urine Protein 1+ (Negative) H 10/27/17 16:36 Urine Glucose (UA) Negative (Negative) 10/27/17 16:36 Urine Ketones Negative (Negative) 10/27/17 16:36 Urine Blood Small (Negative) H 10/27/17 16:36 Urine Nitrite Negative (Negative) 10/27/17 16:36 Urine Bilirubin Negative (Negative) 10/27/17 16:36 Urine Urobilinogen <2.0 mg/dL (<2.0) 10/27/17 16:36 Ur Leukocyte Esterase Small (Negative) H 10/27/17 16:36 Urine RBC 29 /hpf (0-5) H 10/27/17 16:36 Urine WBC 20 /hpf (0-5) H 10/27/17 16:36 Amorphous Sediment Rare /hpf (None) H 10/27/17 16:36 Urine Mucus Occasional /hpf (None) H 10/27/17 16:36 Gentamicin Peak 9.1 ug/mL 10/29/17 17:28 Gentamicin Trough 2.1 ug/mL H* 10/29/17 14:41 Microbiology 10/27/17 16:41 Blood Blood Culture Gram Stain - Final 10/27/17 16:41 Blood Blood Culture - Final Staphylococcus epidermidis 10/29/17 00:15 Abdomen Gram Stain - Preliminary 10/29/17 00:15 Abdomen Wound Culture - Preliminary Presumptive Staph aureus 10/29/17 00:15 Abdomen Anaerobic Culture - Preliminary 10/27/17 16:36 Urine,Voided Urine Culture - Final 10/27/17 16:41 Blood Blood Culture - Preliminary Assessment and Plan (1) Postoperative wound infection Narrative/Plan: 56-year-old male presents to the emergency center as a referral from his clinic because of difficulties with abscess to his abdominal wall. Is noted he had a recent radical prostatectomy to an open procedure is had difficulty with healing of the incision. Abscesses form. Computed tomography scan shows evidence of ongoing abscess formation at this time. Because it is open is not under great pressure. There is extensive area of induration related to this infectious process. There is a blood culture that is positive for Staphylococcus epidermidis which will be a contamination. The wound culture however now is evidence of staph aureus, antimicrobial therapy is streamlined to only vancomycin therapy. Urinalysis is mildly abnormal and urine culture is pending. At this point in time continue ongoing supportive care. The ulceration is packed with the iodoform gauze and ABD pads to absorb drainage. The patient is up-to-date with his tetanus vaccine. Multivitamin is added. Ensure that he has a high-protein diet. Will be transferred to the [facility] for surgical intervention when bed available. Current Visit: No Status: Acute Code(s): T81.4XXA - INFECTION FOLLOWING A PROCEDURE, INITIAL ENCOUNTER SNOMED Code(s): 69589262 (2) UTI (urinary tract infection) Current Visit: No Status: Acute Code(s): N39.0 - URINARY TRACT INFECTION, SITE NOT SPECIFIED SNOMED Code(s): 37515653
[2017-10-30] MEDS: VANCOMYCIN 2,000 MG in SODIUM CHLORIDE 0.9% 500 ML IVPB SCH (21:55)
[2017-10-31] MEDS ORDERED: GENTAMICIN TROUGH DUE 1 EACH MISC MISCELLANE ONE (01:00)
[2017-10-31] MEDS ORDERED: GENTAMICIN PEAK DUE 1 EACH MISC MISCELLANE ONE (03:30)
[2017-10-31] MEDS: VANCOMYCIN 2,000 MG in SODIUM CHLORIDE 0.9% 500 ML IVPB SCH ×2 (05:05→17:54)
[2017-10-31] MEDS: HYDROcodone/APAP 5-325MG 1 EACH TAB PO PRN ×2 (05:08→16:49)
[2017-10-31] MEDS: FAMOTIDINE 20 MG TAB PO SCH ×2 (08:31→20:03)
[2017-10-31] MEDS: HEPARIN SODIUM,PORCINE 5,000 UNIT/ML 1 ML VIAL SQ SCH ×3 (08:31→23:34)
[2017-10-31] MEDS: SERTRALINE 100 MG TAB PO SCH (08:31)
[2017-10-31] MEDS: HYDROmorphone 2 MG/ML 1 ML SYRINGE IVP PRN ×3 (08:35→20:03)
--- NOTE | 2017-10-31 13:15 | P.GSCN ---
History of Present Illness Consult date: 10/31/17 Reason for Consult: Abdominal wall abscess History of present illness: we were consulted on this patient because of an infection along his lower midline incision after recent prostatectomy 1 month ago at the [facility] in [place]. he was hospitalized postoperatively there for this infection. He had 3 separate areas where the wound was opened. 2 of those have closed and he is left with one larger open wound inferiorly. CAT scan from 10/27 shows this wound opening extending into the subcutaneous space. There does not appear to be any definite nondraining fluid collections at this time. He was complaining of pain along the lower abdomen and redness as well. He has been hospitalized and started on antibiotics. They were planning to transfer to the [place] however there are no beds available at this time. We are consulted to be on surgical standby in case additional surgical drainage was required. cultures have shown staph aureus. he is on antibiotics per infectious disease. Review of Systems The patient denies any acute changes in vision or hearing, no dysphagia or odynophagia, no chest pain or shortness of breath, no dysuria or hematuria, no headache, no runny nose, no rectal bleeding or melena, no unexplained weight loss Past Medical History Past Medical History: Asthma, Cancer, GERD/Reflux, Hyperlipidemia, Pneumonia, Prostate Disorder Additional Past Medical History / Comment(s): peripheral edema. 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 History of Any Multi-Drug Resistant Organisms: None Reported Year Discovered:: 10/01/17 MDRO Source:: incision Past Surgical History: Appendectomy, Prostate Surgery Additional Past Surgical History / Comment(s): as youth fell on broken glass jar and cut tendons lt writs-had sx to repair.left wrist carpal tunnel release, , left shoulder rotator reconstruction and has a pin in place, cystectomy tailbone, open abdominal surgery to remove prsotate Past Anesthesia/Blood Transfusion Reactions: No Reported Reaction Additional Psychological History / Comment(s): and lives with family home with his and 15-year-old son adult daughter is now on her own. 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 No international travel since then no other ill contacts. No animal exposures Smoking Status: Never smoker - Past Family History Father Family Medical History: Congestive Heart Failure (CHF), Hypertension Mother Additional Family Medical History / Comment(s): depression Medications and Allergies Home Medications Medication Instructions Recorded Confirmed Type Albuterol Inhaler [Ventolin Hfa 2 puff INHALATION RT-Q6H PRN 04/27/14 10/27/17 History Inhaler] Hydrochlorothiazide [Hydrodiuril] 25 mg PO HS 04/27/14 10/27/17 History Sertraline [Zoloft] 100 mg PO DAILY 04/27/14 10/27/17 History Simethicone [Gas-X] 125 mg PO DAILY PRN 10/01/17 10/27/17 History traZODone HCL 50 mg PO HS 10/01/17 10/27/17 History Simvastatin [Zocor] 80 mg PO HS 10/05/17 10/27/17 History Ibuprofen [Motrin] 800 mg PO Q6H PRN 10/27/17 10/27/17 History Allergies Allergy/AdvReac Type Severity Reaction Status Date / Time adhesive tape Allergy Rash/Hives Verified 10/27/17 16:08 Surgical - Exam Vital Signs Temp Pulse Resp BP Pulse Ox 99.2 F 100 18 155/71 98 10/27/17 15:59 10/27/17 15:59 10/27/17 15:59 10/27/17 15:59 10/27/17 15:59 Physical exam: General: Well-developed, well-nourished HEENT: Normocephalic, sclerae nonicteric Abdomen: Nontender, nondistended, lower midline incision with mild erythema, wound present measuring 1.5 x 2 cm with a depth of 4 cm, some purulent drainage present, no undrained areas noted Extremities: No edema Neuro: Alert and oriented Results - Labs 10/30/17 06:46 10/30/17 06:46 Microbiology - Last 24 Hours (Table) 10/29/17 00:15 Gram Stain - Final Abdomen Wound Culture - Final Staphylococcus aureus 10/27/17 16:41 Blood Culture Gram Stain - Final Blood Blood Culture - Final Staphylococcus epidermidis Assessment and Plan (1) Postoperative wound infection Narrative/Plan: continue IV antibiotics. Continue local wound care. No need for surgical drainage at this time. We'll follow with you. Current Visit: No Status: Acute Code(s): T81.4XXA - INFECTION FOLLOWING A PROCEDURE, INITIAL ENCOUNTER SNOMED Code(s): 93701522
--- NOTE | 2017-10-31 14:51 | P.PN ---
Subjective Progress Note Date: 10/31/17 Progress note being dictated for . 56-year-old gentleman admitted for abdominal wall abscess encephalitis and patient is presently on Unasyn and gentamicin infectious disease evaluated the patient we're unable to send him to be a until Monday. Patient although is clinically doing well patient will be resumed on his home medications patient will be started on DVT prophylaxis and the GI prophylaxis and patient will be started on ketorolac to avoid opiate analgesia patient is not constipated at this point of time patient will be on bowel regimen as well. 10/30/2017 No overnight events patient is doing well and patient is awaiting transfer to [facility] tomorrow patient won't cultures are showing staph aureus patient is presently on gentamicin and Zosyn, antibiotics at being managed by infectious disease. Constitutional: Denied any fatigue denied any fever. Cardio vascular: denied any chest pain, palpitations Gastrointestinal denied any nausea vomiting Pulmonary: Denied any shortness of breath cough Neurologic denied any new focal deficits 10/31/2017 no overnight events. Afebrile. Cultures reporting staph aureus , Maintained on antibiotics as per infectious disease. BPH transfer in progress, currently no beds and surgery consulted. Denies any chest pain, palpitations or increasing shortness of breath. Denies any lightheadedness dizziness or focal deficits. Denies any acute changes in hearing. Denies any urinary symptoms; frequency, burning sensation. Objective - Vital Signs Vital signs: Vital Signs Temp 97.5 F L 10/31/17 07:00 Pulse 83 10/31/17 07:00 Resp 16 10/31/17 07:00 BP 126/81 10/31/17 07:00 Pulse Ox 92 L 10/31/17 07:00 Intake & Output 10/30/17 10/31/17 10/31/17 18:59 06:59 18:59 Intake Total 500 3 Balance 500 3 Intake: Oral 500 Other 3 Other: Voiding Method Toilet Toilet # Voids 2 3 - Exam GENERAL: The patient is alert and oriented x3, sitting up in chair,, not in any acute distress. Well developed, well nourished. HEENT: Pupils are round and equally reacting to light. EOMI. No scleral icterus. No conjunctival pallor. Normocephalic, atraumatic. No pharyngeal erythema. No thyromegaly. CARDIOVASCULAR: S1 and S2 present. No murmurs, rubs, or gallops. PULMONARY: Chest is clear to auscultation, no wheezing or crackles. ABDOMEN: Suprapubic abdominal wall has a wound and it tract it appears to have induration appears to have actually an abscess had dressing in one of the tunneling wound I in the suprapubic area. Some purulent discharge from the wound MUSCULOSKELETAL: No joint swelling or deformity. EXTREMITIES: No cyanosis, clubbing, or pedal edema. NEUROLOGICAL: Gross neurological examination did not reveal any focal deficits. SKIN: No rashes. Microbiology 10/29/17 00:15 Abdomen Anaerobic Culture - Preliminary 10/29/17 00:15 Abdomen Gram Stain - Final 10/29/17 00:15 Abdomen Wound Culture - Final Staphylococcus aureus 10/27/17 16:41 Blood Blood Culture Gram Stain - Final 10/27/17 16:41 Blood Blood Culture - Final Staphylococcus epidermidis 10/27/17 16:36 Urine,Voided Urine Culture - Final 10/27/17 16:41 Blood Blood Culture - Preliminary - Labs CBC & Chem 7: 10/30/17 06:46 10/30/17 06:46 Labs: Microbiology - Last 24 Hours (Table) 10/29/17 00:15 Gram Stain - Final Abdomen Wound Culture - Final Staphylococcus aureus 10/27/17 16:41 Blood Culture Gram Stain - Final Blood Blood Culture - Final Staphylococcus epidermidis Assessment and Plan Assessment: -Abdominal wall abscess and recurrent postsurgical wound infection: Patient will be continued on IV antibiotics -Hypertension: Patient will be resumed on hydrochlorothiazide depression -Past esophageal reflux disease -Hyperlipidemia -Asthma without any acute exacerbation -Obesity Plan: Continue current medication regime ,monitoring and symptomatic treatment. Antibiotics/local wound care as per infectious disease. Increase ambulation as tolerated. Aggressive pulmonary toileting. Case management/social work administrator assisting in [facility] transfer. Currently no beds., surgical consult initiated. The impression and plan of care has been dictated as directed. : I performed a history and examination of this patient, discussed the same with the dictator. I agree with the dictator's note ,documented as a scribe. Any additional findings or plans will be noted.
[2017-10-31] MEDS: ATORVASTATIN 40 MG TAB PO SCH (20:03)
[2017-11-01] MEDS: HYDROmorphone 2 MG/ML 1 ML SYRINGE IVP PRN ×2 (03:04→11:46)
[2017-11-01] MEDS: VANCOMYCIN 2,000 MG in SODIUM CHLORIDE 0.9% 500 ML IVPB SCH ×2 (05:13→17:22)
[2017-11-01] MEDS: HEPARIN SODIUM,PORCINE 5,000 UNIT/ML 1 ML VIAL SQ SCH ×3 (07:43→23:58)
[2017-11-01] MEDS: SERTRALINE 100 MG TAB PO SCH (08:28)
[2017-11-01] MEDS: FAMOTIDINE 20 MG TAB PO SCH ×2 (08:28→19:49)
[2017-11-01] MEDS: HYDROCHLOROTHIAZIDE 25 MG TAB PO SCH (08:28)
[2017-11-01] MEDS: HYDROcodone/APAP 5-325MG 1 EACH TAB PO PRN ×2 (08:33→18:48)
[2017-11-01 10:20] LABS: Anion Gap 9 mmol/L; Blood Urea Nitrogen 14 mg/dL (9-20); Calcium 9.5 mg/dL (8.4-10.2); Carbon Dioxide 27 mmol/L (22-30); Chloride 104 mmol/L (98-107); Glucose 108 mg/dL (74-99); Potassium 4.1 mmol/L (3.5-5.1); Sodium 140 mmol/L (137-145)
--- NOTE | 2017-11-01 12:44 | P.PN ---
Subjective Progress Note Date: 11/01/17 Principal diagnosis: Abdominal wound Patient says he feels slightly better. Less abdominal pain. Drainage persists. He is afebrile. No labs from today. Objective - Vital Signs Vital signs: Vital Signs Temp 97.0 F L 11/01/17 07:41 Pulse 86 11/01/17 07:41 Resp 16 11/01/17 08:00 BP 121/67 11/01/17 07:41 Pulse Ox 93 L 11/01/17 07:41 Intake & Output 10/31/17 11/01/17 11/01/17 18:59 06:59 18:59 Intake Total 1000 180 Balance 1000 180 Intake: Intake, IV Titration 1000 Amount Vancomycin 2,000 mg In 1000 Sodium Chloride 0.9% 500 ml @ 167 mls/hr IVPB Q12HR@0600,1800 [facility] Rx#: [id number] Oral 180 Other: Voiding Method Toilet Toilet Toilet # Voids 3 2 - Exam Abdomen: Soft, nondistended, wound with mild seropurulent drainage, mild erythema, tenderness improved - Labs CBC & Chem 7: 10/30/17 06:46 11/01/17 09:52 Labs: Abnormal Lab Results - Last 24 Hours (Table) 11/01/17 Range/Units 09:52 Glucose 108 H (74-99) mg/dL Microbiology - Last 24 Hours (Table) 10/29/17 00:15 Anaerobic Culture - Preliminary Abdomen 10/29/17 00:15 Gram Stain - Final Abdomen Wound Culture - Final Staphylococcus aureus Assessment and Plan (1) Postoperative wound infection Narrative/Plan: Will change packing from iodophor to osman roll. Continue IV antibiotics. No need for further surgical drainage at this time. Current Visit: No Status: Acute Code(s): T81.4XXA - INFECTION FOLLOWING A PROCEDURE, INITIAL ENCOUNTER SNOMED Code(s): 77660480
[2017-11-01] MEDS: ATORVASTATIN 40 MG TAB PO SCH (19:49)
[2017-11-02] MEDS: HYDROcodone/APAP 5-325MG 1 EACH TAB PO PRN ×4 (00:01→20:01)
[2017-11-02] MEDS: HYDROmorphone 2 MG/ML 1 ML SYRINGE IVP PRN ×2 (02:36→21:14)
[2017-11-02] MEDS ORDERED: VANCOMYCIN TROUGH DUE 1 EACH MISC MISCELLANE ONE (05:00)
[2017-11-02 05:04] LABS: Basophils # (A) 0.1 k/uL (0-0.2); Basophils % (A) 1 %; Eosinophils # (A) 0.7 k/uL (0-0.7); Eosinophils % (A) 7 %; HCT 40.8 % (39.0-53.0); HGB 12.7 gm/dL (13.0-17.5); Hypochromasia Slight; Lymphocytes % (A) 20 %; MCH 27.9 pg (25.0-35.0); Mean Platelet Volume 7.1; Monocytes # (A) 0.7 k/uL (0-1.0); Monocytes % (A) 7 %; Neutrophils # (A) 6.2 k/uL (1.3-7.7); Neutrophils % (A) 62 %; Platelet Count 350 k/uL (150-450); RBC 4.54 m/uL (4.30-5.90); RDW 14.9 % (11.5-15.5); WBC 10.1 k/uL (3.8-10.6)
[2017-11-02] MEDS: VANCOMYCIN 2,000 MG in SODIUM CHLORIDE 0.9% 500 ML IVPB SCH ×2 (05:07→17:21)
[2017-11-02 05:24] LABS: Anion Gap 9 mmol/L; Blood Urea Nitrogen 15 mg/dL (9-20); Calcium 9.4 mg/dL (8.4-10.2); Carbon Dioxide 27 mmol/L (22-30); Chloride 103 mmol/L (98-107); Glucose 105 mg/dL (74-99); Potassium 4.4 mmol/L (3.5-5.1); Sodium 139 mmol/L (137-145)
[2017-11-02] MEDS: HEPARIN SODIUM,PORCINE 5,000 UNIT/ML 1 ML VIAL SQ SCH ×3 (07:36→23:42)
[2017-11-02] MEDS: FAMOTIDINE 20 MG TAB PO SCH ×2 (07:37→19:51)
[2017-11-02] MEDS: SERTRALINE 100 MG TAB PO SCH (07:38)
[2017-11-02] MEDS: HYDROCHLOROTHIAZIDE 25 MG TAB PO SCH (07:38)
--- NOTE | 2017-11-02 12:14 | P.PN ---
<Linda Acosta - Last Filed: 11/02/17 12:09> Subjective Progress Note Date: 11/02/17 Pleasant 56-year-old gentleman seen and examined. Patient stating is anxious to be discharged. Discharge planning in progress Reports less abdominal pain. Continues to have serous non-odorous drainage from abdominal wound remains afebrile the white count 10.1 Objective - Vital Signs Vital signs: Vital Signs Temp 98.1 F 11/02/17 02:29 Pulse 87 11/02/17 02:29 Resp 17 11/02/17 02:29 BP 133/77 11/02/17 02:29 Pulse Ox 96 11/02/17 02:29 Intake & Output 11/01/17 11/02/17 11/02/17 18:59 06:59 18:59 Intake Total 1267 120 Output Total 600 Balance 1267 -600 120 Intake: Oral 1267 120 Output: Urine 600 Other: Voiding Method Toilet Toilet # Voids 2 1 - Exam Focused exam Abdomen soft obese not distended slight tenderness to surgical site abdominal wound with mild seropurulent mild erythremia - Labs CBC & Chem 7: 11/02/17 04:49 11/02/17 04:49 Labs: Abnormal Lab Results - Last 24 Hours (Table) 11/01/17 11/02/17 11/02/17 Range/Units 09:52 04:49 04:49 Hgb 12.7 L (13.0-17.5) gm/dL Glucose 108 H 105 H (74-99) mg/dL Assessment and Plan Assessment: Assessment and plan No further need for surgical drainage at this time Continue recommendations for antibiotic therapy per infectious disease Wound care to surgical postoperative wound as ordered daily osman roll cover with 4 x 4 The above impression and plan of care have been discussed and directed by signing physician. Linda Acosta nurse practitioner acting as scribe for signing physician. <Felipe Hart - Last Filed: 11/02/17 14:49> Objective - Vital Signs Vital signs: Vital Signs Temp 98.7 F 11/02/17 14:04 Pulse 89 11/02/17 14:04 Resp 16 11/02/17 14:04 BP 105/52 11/02/17 14:04 Pulse Ox 92 L 11/02/17 14:04 Intake & Output 0111/02/17 11/02/17 18:59 06:59 18:59 Intake Total 1267 370 Output Total 600 Balance 1267 -600 370 Weight 137.438 kg Intake: Oral 1267 370 Output: Urine 600 Other: Voiding Method Toilet Toilet # Voids 2 1 - Labs CBC & Chem 7: 11/02/17 04:49 11/02/17 04:49 Labs: Abnormal Lab Results - Last 24 Hours (Table) 11/02/17 11/02/17 Range/Units 04:49 04:49 Hgb 12.7 L (13.0-17.5) gm/dL Glucose 105 H (74-99) mg/dL Microbiology - Last 24 Hours (Table) 10/29/17 00:15 Anaerobic Culture - Final Abdomen Assessment and Plan Assessment: Patient doing well today. No pain presently. Overall he believes his drainage and abdominal discomforts are improved. Continue local wound care. Possible discharge later today or tomorrow. (1) Postoperative wound infection Current Visit: No Status: Acute Code(s): T81.4XXA - INFECTION FOLLOWING A PROCEDURE, INITIAL ENCOUNTER SNOMED Code(s): 91331214
--- NOTE | 2017-11-02 12:36 | P.PN ---
Subjective Progress Note Date: 11/01/17 Progress note being dictated for . 56-year-old gentleman admitted for abdominal wall abscess encephalitis and patient is presently on Unasyn and gentamicin infectious disease evaluated the patient we're unable to send him to be a until Monday. Patient although is clinically doing well patient will be resumed on his home medications patient will be started on DVT prophylaxis and the GI prophylaxis and patient will be started on ketorolac to avoid opiate analgesia patient is not constipated at this point of time patient will be on bowel regimen as well. 10/30/2017 No overnight events patient is doing well and patient is awaiting transfer to [facility] tomorrow patient won't cultures are showing staph aureus patient is presently on gentamicin and Zosyn, antibiotics at being managed by infectious disease. Constitutional: Denied any fatigue denied any fever. Cardio vascular: denied any chest pain, palpitations Gastrointestinal denied any nausea vomiting Pulmonary: Denied any shortness of breath cough Neurologic denied any new focal deficits 10/31/2017 no overnight events. Afebrile. Cultures reporting staph aureus , Maintained on antibiotics as per infectious disease. BPH transfer in progress, currently no beds and surgery consulted. Denies any chest pain, palpitations or increasing shortness of breath. Denies any lightheadedness dizziness or focal deficits. Denies any acute changes in hearing. Denies any urinary symptoms; frequency, burning sensation. 11/01/17 abdominal pain/tenderness improving. Serosanguineous/seropurulent drainage reported with dressing change. Afebrile. Complains of diarrhea. Nice chest pain, palpitations or increasing shortness of breath. Objective - Vital Signs Vital signs: Vital Signs Temp 97.2 F L 11/01/17 13:59 Pulse 96 11/01/17 13:59 Resp 16 11/01/17 13:59 BP 147/76 11/01/17 13:59 Pulse Ox 92 L 11/01/17 13:59 Intake & Output 10/31/17 11/01/17 11/01/17 18:59 06:59 18:59 Intake Total 1000 1030 Balance 1000 1030 Intake: Intake, IV Titration 1000 Amount Vancomycin 2,000 mg In 1000 Sodium Chloride 0.9% 500 ml @ 167 mls/hr IVPB Q12HR@0600,1800 [facility] Rx#: [id number] Oral 1030 Other: Voiding Method Toilet Toilet Toilet # Voids 3 2 - Exam GENERAL: The patient is alert and oriented x3,no acute distress. Well developed , well nourished. HEENT: Pupils are round and equally reacting to light. EOMI. No scleral icterus. No conjunctival pallor. Normocephalic, atraumatic. No pharyngeal erythema. No thyromegaly. CARDIOVASCULAR: S1 and S2 present. No murmurs, rubs, or gallops. PULMONARY: Chest is clear to auscultation, no wheezing or crackles. ABDOMEN: Suprapubic abdominal wall has a wound and it tract it appears to have induration, appears to have actually an abscess had dressing in one of the tunneling wound I in the suprapubic area. Some purulent discharge from the wound perisists, improving tenderness. MUSCULOSKELETAL: No joint swelling or deformity. EXTREMITIES: No cyanosis, clubbing, or pedal edema. NEUROLOGICAL: Gross neurological examination did not reveal any focal deficits. SKIN: No rashes. Microbiology 10/29/17 00:15 Abdomen Anaerobic Culture - Final 10/29/17 00:15 Abdomen Gram Stain - Final 10/29/17 00:15 Abdomen Wound Culture - Final Staphylococcus aureus 10/27/17 16:41 Blood Blood Culture Gram Stain - Final 10/27/17 16:41 Blood Blood Culture - Final Staphylococcus epidermidis 10/27/17 16:36 Urine,Voided Urine Culture - Final 10/27/17 16:41 Blood Blood Culture - Preliminary - Labs CBC & Chem 7: 11/02/17 04:49 11/02/17 04:49 Labs: Abnormal Lab Results - Last 24 Hours (Table) 11/01/17 Range/Units 09:52 Glucose 108 H (74-99) mg/dL Microbiology - Last 24 Hours (Table) 10/29/17 00:15 Anaerobic Culture - Preliminary Abdomen Assessment and Plan Assessment: -Abdominal wall abscess and recurrent postsurgical wound infection: Patient will be continued on IV antibiotics -Hypertension: Patient will be resumed on hydrochlorothiazide depression -Past esophageal reflux disease -Hyperlipidemia -Asthma without any acute exacerbation -Obesity Plan: Continue current medication regime ,monitoring and symptomatic treatment. Rule out C. difficile colitis. Yogurt with meals. Antibiotics/local wound care as per infectious disease. Increase ambulation as tolerated. Discharge planning in progress for home with home care, PICC line placement and discharge antibiotics as per ID. Clearance from surgery pending. The impression and plan of care has been dictated as directed. : I performed a history and examination of this patient, discussed the same with the dictator. I agree with the dictator's note ,documented as a scribe. Any additional findings or plans will be noted.
[2017-11-02 14:35] VITALS: BMI 41.1
--- NOTE | 2017-11-02 15:46 | P.PN ---
Subjective Progress Note Date: 11/02/17 Progress note being dictated for . 56-year-old gentleman admitted for abdominal wall abscess encephalitis and patient is presently on Unasyn and gentamicin infectious disease evaluated the patient we're unable to send him to be a until Monday. Patient although is clinically doing well patient will be resumed on his home medications patient will be started on DVT prophylaxis and the GI prophylaxis and patient will be started on ketorolac to avoid opiate analgesia patient is not constipated at this point of time patient will be on bowel regimen as well. 10/30/2017 No overnight events patient is doing well and patient is awaiting transfer to [facility] tomorrow patient won't cultures are showing staph aureus patient is presently on gentamicin and Zosyn, antibiotics at being managed by infectious disease. Constitutional: Denied any fatigue denied any fever. Cardio vascular: denied any chest pain, palpitations Gastrointestinal denied any nausea vomiting Pulmonary: Denied any shortness of breath cough Neurologic denied any new focal deficits 10/31/2017 no overnight events. Afebrile. Cultures reporting staph aureus , Maintained on antibiotics as per infectious disease. BPH transfer in progress, currently no beds and surgery consulted. Denies any chest pain, palpitations or increasing shortness of breath. Denies any lightheadedness dizziness or focal deficits. Denies any acute changes in hearing. Denies any urinary symptoms; frequency, burning sensation. 11/01/17 abdominal pain/tenderness improving. Serosanguineous/seropurulent drainage reported with dressing change. Afebrile. Complains of diarrhea. Nice chest pain, palpitations or increasing shortness of breath. 11/02/2017 continues to do well. Diarrhea tested negative for C. difficile colitis. Discharge planning in progress, PICC line placement scheduled, attempting to get authorization for outpatient IV antibiotics through the [place], with wound care as outpatient with Dr. Alcantar. Denies chest pain, palpitations or shortness of breath. Objective - Vital Signs Vital signs: Vital Signs Temp 98.7 F 11/02/17 14:04 Pulse 89 11/02/17 14:04 Resp 16 11/02/17 14:04 BP 105/52 11/02/17 14:04 Pulse Ox 92 L 11/02/17 14:04 Intake & Output 11/01/17 11/02/17 11/02/17 18:59 06:59 18:59 Intake Total 1267 370 Output Total 600 Balance 1267 -600 370 Weight 137.438 kg Intake: Oral 1267 370 Output: Urine 600 Other: Voiding Method Toilet Toilet # Voids 2 1 - Exam GENERAL: The patient is alert and oriented x3,no acute distress. Well developed , well nourished. HEENT: Pupils are round and equally reacting to light. EOMI. No scleral icterus. No conjunctival pallor. Normocephalic, atraumatic. No pharyngeal erythema. No thyromegaly. CARDIOVASCULAR: S1 and S2 present. No murmurs, rubs, or gallops. PULMONARY: Chest is clear to auscultation, no wheezing or crackles. ABDOMEN: Suprapubic abdominal wall has a wound and it tract it appears to have induration, appears to have actually an abscess had dressing in one of the tunneling wound I in the suprapubic area. Some purulent discharge from the wound perisists, improving tenderness. MUSCULOSKELETAL: No joint swelling or deformity. EXTREMITIES: No cyanosis, clubbing, or pedal edema. NEUROLOGICAL: Gross neurological examination did not reveal any focal deficits. SKIN: No rashes. Microbiology 10/29/17 00:15 Abdomen Anaerobic Culture - Final 10/29/17 00:15 Abdomen Gram Stain - Final 10/29/17 00:15 Abdomen Wound Culture - Final Staphylococcus aureus 10/27/17 16:41 Blood Blood Culture Gram Stain - Final 10/27/17 16:41 Blood Blood Culture - Final Staphylococcus epidermidis 10/27/17 16:36 Urine,Voided Urine Culture - Final 10/27/17 16:41 Blood Blood Culture - Preliminary - Labs CBC & Chem 7: 11/02/17 04:49 11/02/17 04:49 Labs: Abnormal Lab Results - Last 24 Hours (Table) 11/02/17 11/02/17 Range/Units 04:49 04:49 Hgb 12.7 L (13.0-17.5) gm/dL Glucose 105 H (74-99) mg/dL Microbiology - Last 24 Hours (Table) 10/29/17 00:15 Anaerobic Culture - Final Abdomen Assessment and Plan Assessment: -Abdominal wall abscess and recurrent postsurgical wound infection: Patient will be continued on IV antibiotics -Hypertension: Patient will be resumed on hydrochlorothiazide depression -Past esophageal reflux disease -Hyperlipidemia -Asthma without any acute exacerbation -Obesity Plan: Continue current medication regime ,monitoring and symptomatic treatment. PICC line placement pending .DC Antibiotics/local wound care as per infectious disease awaiting authorization from [place]. Surgical clearance obtained for dc. The impression and plan of care has been dictated as directed. : I performed a history and examination of this patient, discussed the same with the dictator. I agree with the dictator's note ,documented as a scribe. Any additional findings or plans will be noted.
[2017-11-02] MEDS: ATORVASTATIN 40 MG TAB PO SCH (19:51)
--- NOTE | 2017-11-02 22:44 | P.PN ---
Subjective Progress Note Date: 11/02/17 Principal diagnosis: Abdominal abscess 56-year-old male presents to Hospital from the clinic review was evaluated because of difficulties with his abdominal wall. This pleasant gentleman has a history of prostate cancer. He underwent a radical prostatectomy the [facility] in [place]. Because of his obesity he could not have a robotic procedure. He relates that he is starting to feel somewhat better. However upon presentation to the clinic there is evidence of grossly purulent material emanating from the inferior wound on his abdominal wall. Because of this he was directed to hospital. He is not have a bit of an infection to that site and has been on outpatient oral antibiotic therapy. Despite this is site has worsened. He has purulent drainage and evidence of erythema tenderness in extensive induration to the abdominal wall. He has been admitted and been seen locally by surgery. However because of surgeries been done at the [facility]. He to be transferred there for any further surgical intervention. The patient has had a low-grade fever butbegin chills or rigors. Does not feel severely ill at this time. But does feel a bit fatigued. He's been recovering from his prostate surgery. He remains without fevers chills or rigors or sweats. His appetite is been adequate. He denies nausea or emesis or diarrhea. Denies any urinary symptoms is burning discomfort or urgency. He has no flank pains. No other skin rashes are noted. Objective - Vital Signs Vital signs: Vital Signs Temp 97.3 F L 11/02/17 19:54 Pulse 84 11/02/17 19:54 Resp 16 11/02/17 19:54 BP 142/80 11/02/17 19:54 Pulse Ox 95 11/02/17 19:54 Intake & Output 11/02/17 11/02/17 11/03/17 06:59 18:59 06:59 Intake Total 607 Output Total 600 Balance -600 607 Weight 137.438 kg Intake: Oral 607 Output: Urine 600 Other: Voiding Method Toilet Toilet Toilet # Voids 1 - Exam Pleasant 56-year-old male who has superobesity. Does not seem to be very uncomfortable the moment. But is having significant drainage from the abdominal lesion. Obese, HEENT: Anicteric conjunctiva are pink and moist nasal mucosa grossly intact without significant lesions, there is no thrush. Neck: The neck is supple without significant lymphadenopathy or thyromegaly. Lungs: Good bilateral air entry without significant crackles or wheezing. There is no significant bronchial sounds. There is no egophony or dullness. Heart: Regular rate and rhythm with an audible S1-S2, no S3 no S4. There is no significant murmur click or rub, PMI was nondisplaced. Abdomen: Positive bowel sounds soft and nontender without palpable masses or organomegaly. There was no guarding or rebound. Below the umbilicus is evidence of the abdominal abscess. It is currently measuring approximately 2 x 2 with a depth of 3 cm. Grossly purulent material emanates when it is manipulated. There is an area of erythema about 6 cm she abdominal wall and there is also a corresponding area of dense induration at this area of erythema. There some tenderness to the site. No other skin lesions are seen. There is no flank tenderness. Extremities: The upper extremities have excellent pulses they are symmetric, no significant petechiae or telangiectasia. No splinter hemorrhages were noted. The lower extremities are free from significant edema. The peripheral pulses were 2+ and symmetric. Neuro: Awake alert oriented to person place and time. There are no acute new gross focal sensory motor deficits. - Labs CBC & Chem 7: 11/02/17 04:49 11/02/17 04:49 Labs: Abnormal Lab Results - Last 24 Hours (Table) 11/02/17 11/02/17 Range/Units 04:49 04:49 Hgb 12.7 L (13.0-17.5) gm/dL Glucose 105 H (74-99) mg/dL Microbiology - Last 24 Hours (Table) 10/29/17 00:15 Anaerobic Culture - Final Abdomen Laboratory Results WBC 10.1 k/uL (3.8-10.6) 11/02/17 04:49 RBC 4.54 m/uL (4.30-5.90) 11/02/17 04:49 Hgb 12.7 gm/dL (13.0-17.5) L 11/02/17 04:49 Hct 40.8 % (39.0-53.0) 11/02/17 04:49 MCV 90.0 fL (80.0-100.0) 11/02/17 04:49 MCH 27.9 pg (25.0-35.0) 11/02/17 04:49 MCHC 31.0 g/dL (31.0-37.0) 11/02/17 04:49 RDW 14.9 % (11.5-15.5) 11/02/17 04:49 Plt Count 350 k/uL (150-450) 11/02/17 04:49 Neutrophils % 62 % 11/02/17 04:49 Lymphocytes % 20 % 11/02/17 04:49 Monocytes % 7 % 11/02/17 04:49 Eosinophils % 7 % 11/02/17 04:49 Basophils % 1 % 11/02/17 04:49 Neutrophils # 6.2 k/uL (1.3-7.7) 11/02/17 04:49 Lymphocytes # 2.0 k/uL (1.0-4.8) 11/02/17 04:49 Monocytes # 0.7 k/uL (0-1.0) 11/02/17 04:49 Eosinophils # 0.7 k/uL (0-0.7) 11/02/17 04:49 Basophils # 0.1 k/uL (0-0.2) 11/02/17 04:49 Hypochromasia Slight 11/02/17 04:49 PT 9.8 sec (9.0-12.0) 10/27/17 16:41 INR 1.0 (<1.2) 10/27/17 16:41 APTT 24.7 sec (22.0-30.0) 10/27/17 16:41 Sodium 139 mmol/L (137-145) 11/02/17 04:49 Potassium 4.4 mmol/L (3.5-5.1) 11/02/17 04:49 Chloride 103 mmol/L (98-107) 11/02/17 04:49 Carbon Dioxide 27 mmol/L (22-30) 11/02/17 04:49 Anion Gap 9 mmol/L 11/02/17 04:49 BUN 15 mg/dL (9-20) 11/02/17 04:49 Creatinine 1.00 mg/dL (0.66-1.25) 11/02/17 04:49 Est GFR (MDRD) Af Amer >60 (>60 ml/min/1.73 sqM) 11/02/17 04:49 Est GFR (MDRD) Non-Af >60 (>60 ml/min/1.73 sqM) 11/02/17 04:49 Glucose 105 mg/dL (74-99) H 11/02/17 04:49 Plasma Lactic Acid Guru 1.4 mmol/L (0.7-2.0) 10/27/17 16:41 Calcium 9.4 mg/dL (8.4-10.2) 11/02/17 04:49 Total Bilirubin 0.7 mg/dL (0.2-1.3) 10/27/17 16:41 AST 28 U/L (17-59) 10/27/17 16:41 ALT 51 U/L (21-72) 10/27/17 16:41 Alkaline Phosphatase 105 U/L (38-126) 10/27/17 16:41 Total Protein 6.7 g/dL (6.3-8.2) 10/27/17 16:41 Albumin 3.6 g/dL (3.5-5.0) 10/27/17 16:41 Urine Color Yellow 10/27/17 16:36 Urine Appearance Clear (Clear) 10/27/17 16:36 Urine pH 5.5 (5.0-8.0) 10/27/17 16:36 Ur Specific [place] 1.017 (1.001-1.035) 10/27/17 16:36 Urine Protein 1+ (Negative) H 10/27/17 16:36 Urine Glucose (UA) Negative (Negative) 10/27/17 16:36 Urine Ketones Negative (Negative) 10/27/17 16:36 Urine Blood Small (Negative) H 10/27/17 16:36 Urine Nitrite Negative (Negative) 10/27/17 16:36 Urine Bilirubin Negative (Negative) 10/27/17 16:36 Urine Urobilinogen <2.0 mg/dL (<2.0) 10/27/17 16:36 Ur Leukocyte Esterase Small (Negative) H 10/27/17 16:36 Urine RBC 29 /hpf (0-5) H 10/27/17 16:36 Urine WBC 20 /hpf (0-5) H 10/27/17 16:36 Amorphous Sediment Rare /hpf (None) H 10/27/17 16:36 Urine Mucus Occasional /hpf (None) H 10/27/17 16:36 Gentamicin Peak <0.6 ug/mL 10/31/17 03:23 Gentamicin Trough <0.6 ug/mL 10/31/17 01:15 Vancomycin Trough 15.6 ug/mL 11/02/17 04:49 C. difficile (EIA) Intrp Negative (Negative) 11/01/17 16:50 Microbiology 10/29/17 00:15 Abdomen Anaerobic Culture - Final 10/29/17 00:15 Abdomen Gram Stain - Final 10/29/17 00:15 Abdomen Wound Culture - Final Staphylococcus aureus 10/27/17 16:41 Blood Blood Culture Gram Stain - Final 10/27/17 16:41 Blood Blood Culture - Final Staphylococcus epidermidis 10/27/17 16:36 Urine,Voided Urine Culture - Final 10/27/17 16:41 Blood Blood Culture - Preliminary Assessment and Plan (1) Postoperative wound infection Narrative/Plan: 56-year-old male presents to the emergency center as a referral from his clinic because of difficulties with abscess to his abdominal wall. Is noted he had a recent radical prostatectomy to an open procedure is had difficulty with healing of the incision. Abscesses form. Computed tomography scan shows evidence of ongoing abscess formation at this time. Because it is open is not under great pressure. There is extensive area of induration related to this infectious process. There is a blood culture that is positive for Staphylococcus epidermidis which will be a contamination. The wound culture however now is evidence of staph aureus, antimicrobial therapy is streamlined to only vancomycin therapy. Urinalysis is mildly abnormal and urine culture is pending. At this point in time continue ongoing supportive care. The ulceration is packed with the iodoform gauze and ABD pads to absorb drainage. The patient is up-to-date with his tetanus vaccine. Multivitamin is added. Ensure that he has a high-protein diet. Patient has been seen by surgery. They've reviewed the computed tomography scan does not believe he needs an acute surgical intervention[facility]. Because he will not need surgical intervention we will plan on placing a PICC line and arrange for outpatient intravenous antibiotic therapy patient agrees to come to the office if possible. Orders and process and we will follow. Current Visit: No Status: Acute Code(s): T81.4XXA - INFECTION FOLLOWING A PROCEDURE, INITIAL ENCOUNTER SNOMED Code(s): 46376737 (2) UTI (urinary tract infection) Current Visit: No Status: Inactive Code(s): N39.0 - URINARY TRACT INFECTION , SITE NOT SPECIFIED SNOMED Code(s): 81110436
[2017-11-03] MEDS: VANCOMYCIN 2,000 MG in SODIUM CHLORIDE 0.9% 500 ML IVPB SCH ×2 (05:08→17:32)
[2017-11-03] MEDS: HYDROcodone/APAP 5-325MG 1 EACH TAB PO PRN ×3 (05:13→16:17)
[2017-11-03 07:39] LABS: Anion Gap 10 mmol/L; Blood Urea Nitrogen 16 mg/dL (9-20); Calcium 9.4 mg/dL (8.4-10.2); Carbon Dioxide 26 mmol/L (22-30); Chloride 104 mmol/L (98-107); Glucose 98 mg/dL (74-99); Potassium 4.5 mmol/L (3.5-5.1); Sodium 140 mmol/L (137-145)
[2017-11-03] MEDS: SERTRALINE 100 MG TAB PO SCH (09:22)
[2017-11-03] MEDS: FAMOTIDINE 20 MG TAB PO SCH ×2 (09:22→20:13)
[2017-11-03] MEDS: HYDROCHLOROTHIAZIDE 25 MG TAB PO SCH (09:22)
[2017-11-03] MEDS: HEPARIN SODIUM,PORCINE 5,000 UNIT/ML 1 ML VIAL SQ SCH ×2 (09:22→16:14)
--- NOTE | 2017-11-03 10:02 | P.PN ---
Subjective 56-year-old gentleman admitted for abdominal wall abscess encephalitis and patient is presently on Unasyn and gentamicin infectious disease evaluated the patient we're unable to send him to be a until Monday. Patient although is clinically doing well patient will be resumed on his home medications patient will be started on DVT prophylaxis and the GI prophylaxis and patient will be started on ketorolac to avoid opiate analgesia patient is not constipated at this point of time patient will be on bowel regimen as well. 10/30/2016 No overnight events patient is doing well and patient is awaiting transfer to [facility] tomorrow patient won't cultures are showing staph aureus patient is presently on gentamicin and Zosyn, antibiotics at being managed by infectious disease. 11/03/2017 Patient apparently will need 3 days for approval for IV antibiotics we'll check with infectious disease whether patient can be discharged on dicloxacillin for MSSA Constitutional: Denied any fatigue denied any fever. Cardio vascular: denied any chest pain, palpitations Gastrointestinal denied any nausea vomiting Pulmonary: Denied any shortness of breath cough Neurologic denied any new focal deficits Objective - Vital Signs Vital signs: Vital Signs Temp 97.4 F L 11/03/17 01:51 Pulse 83 11/03/17 01:51 Resp 18 11/03/17 01:51 BP 116/70 11/03/17 01:51 Pulse Ox 91 L 11/03/17 01:51 Intake & Output 11/02/17 11/03/17 11/03/17 18:59 06:59 18:59 Intake Total 607 540 250 Balance 607 540 250 Weight 137.438 kg Intake: Oral 607 540 250 Other: Voiding Method Toilet Toilet # Voids 1 1 - Exam GENERAL: The patient is alert and oriented x3,no acute distress. Well developed , well nourished. HEENT: Pupils are round and equally reacting to light. EOMI. No scleral icterus. No conjunctival pallor. Normocephalic, atraumatic. No pharyngeal erythema. No thyromegaly. CARDIOVASCULAR: S1 and S2 present. No murmurs, rubs, or gallops. PULMONARY: Chest is clear to auscultation, no wheezing or crackles. ABDOMEN: Suprapubic abdominal wall has a wound and it tract it appears to have induration, appears to have actually an abscess had dressing in one of the tunneling wound I in the suprapubic area. Some purulent discharge from the wound perisists, improving tenderness. MUSCULOSKELETAL: No joint swelling or deformity. EXTREMITIES: No cyanosis, clubbing, or pedal edema. NEUROLOGICAL: Gross neurological examination did not reveal any focal deficits. SKIN: No rashes. - Labs CBC & Chem 7: 11/02/17 04:49 11/03/17 06:50 Labs: Microbiology - Last 24 Hours (Table) 10/29/17 00:15 Anaerobic Culture - Final Abdomen Assessment and Plan Plan: -Abdominal wall abscess and recurrent postsurgical wound infection: Patient is on Rocephin, patient has MSSA. Rest of the plan as mentioned in the interval history. -Hypertension: Patient will be resumed on hydrochlorothiazide depression -Past esophageal reflux disease -Hyperlipidemia -Asthma without any acute exacerbation -Obesity
--- NOTE | 2017-11-03 10:03 | P.DS ---
Providers Date of admission: 10/27/17 18:08 Attending physician: Cruzito Almonte Consults: 10/27/17 18:04 Consult Physician Stat Consulting Provider: Power Alcantar Consult Reason/Comments: Abdominal wall cellulitis, abscess Do you want consulting provider notified?: Already Contacted 10/31/17 12:30 Consult Physician Routine Consulting Provider: Felipe Hart Reason/Comments: Abdominal wall abscess post surgical Do you want consulting provider notified?: Yes Primary care physician: Gary Pagan [facility] Course: Please refer to my progress note from today for further details Patient Condition at Discharge: Stable Plan - Discharge Summary Discharge Rx Participant: Yes New Discharge Prescriptions: New cefTRIAXone [Rocephin] 2,000 mg IVP Q24HR #14 ml No Action Sertraline [Zoloft] 100 mg PO DAILY Hydrochlorothiazide [Hydrodiuril] 25 mg PO HS Albuterol Inhaler [Ventolin Hfa Inhaler] 2 puff INHALATION RT-Q6H PRN PRN Reason: Shortness Of Breath traZODone HCL 50 mg PO HS Simethicone [Gas-X] 125 mg PO DAILY PRN PRN Reason: Constipation Simvastatin [Zocor] 80 mg PO HS Ibuprofen [Motrin] 800 mg PO Q6H PRN PRN Reason: Pain Discharge Medication List Albuterol Inhaler [Ventolin Hfa Inhaler] 2 puff INHALATION RT-Q6H PRN 04/27/14 [ History] Hydrochlorothiazide [Hydrodiuril] 25 mg PO HS 04/27/14 [History] Sertraline [Zoloft] 100 mg PO DAILY 04/27/14 [History] Simethicone [Gas-X] 125 mg PO DAILY PRN 10/01/17 [History] traZODone HCL 50 mg PO HS 10/01/17 [History] Simvastatin [Zocor] 80 mg PO HS 10/05/17 [History] Ibuprofen [Motrin] 800 mg PO Q6H PRN 10/27/17 [History] cefTRIAXone [Rocephin] 2,000 mg IVP Q24HR #14 ml 11/02/17 [Rx] Follow up Appointment(s)/Referral(s): [facility] Dr. Surgeon [Other] - 1 Week (Follow up with surgeon that performed original OR) Gary Pagan DO [Primary Care Provider] - 3 Days Activity/Diet/Wound Care/Special Instructions: Pack daily surgical wound with osman roll cover with 4 x 4 dressing Discharge Disposition: HOME WITH HOME HEALTH SERVICES
[2017-11-03] MEDS ORDERED: SODIUM CHLORIDE 0.9% 1,000 ML IV ONE (13:13)
[2017-11-03] MEDS ORDERED: LIDOCAINE 2% INJ 20 MG/ML SQ ONE (13:21)
--- NOTE | 2017-11-03 18:34 | P.PN ---
Subjective Progress Note Date: 11/03/17 Principal diagnosis: Abdominal abscess 56-year-old male presents to Hospital from the clinic review was evaluated because of difficulties with his abdominal wall. This pleasant gentleman has a history of prostate cancer. He underwent a radical prostatectomy the [facility] in [place]. Because of his obesity he could not have a robotic procedure. He relates that he is starting to feel somewhat better. However upon presentation to the clinic there is evidence of grossly purulent material emanating from the inferior wound on his abdominal wall. Because of this he was directed to hospital. He is not have a bit of an infection to that site and has been on outpatient oral antibiotic therapy. Despite this is site has worsened. He has purulent drainage and evidence of erythema tenderness in extensive induration to the abdominal wall. He has been admitted and been seen locally by surgery. However because of surgeries been done at the [facility]. He to be transferred there for any further surgical intervention. The patient has had a low-grade fever butbegin chills or rigors. Does not feel severely ill at this time. But does feel a bit fatigued. He's been recovering from his prostate surgery. He remains without fevers chills or rigors or sweats. His appetite is been adequate. He denies nausea or emesis or diarrhea. Denies any urinary symptoms is burning discomfort or urgency. He has no flank pains. No other skin rashes are noted. Objective - Vital Signs Vital signs: Vital Signs Temp 98.7 F 11/03/17 14:12 Pulse 93 11/03/17 14:12 Resp 16 11/03/17 14:12 BP 132/83 11/03/17 14:12 Pulse Ox 93 L 11/03/17 14:12 Intake & Output 11/02/17 11/03/17 11/03/17 18:59 06:59 18:59 Intake Total 082 427 1150 Balance 660 939 0728 Weight 137.438 kg Intake: IV 5 Oral 033 [id number] 0921 Other: Voiding Method Toilet Toilet Toilet # Voids 1 2 - Exam Pleasant 56-year-old male who has superobesity. Does not seem to be very uncomfortable the moment. But is having significant drainage from the abdominal lesion. Obese, HEENT: Anicteric conjunctiva are pink and moist nasal mucosa grossly intact without significant lesions, there is no thrush. Neck: The neck is supple without significant lymphadenopathy or thyromegaly. Lungs: Good bilateral air entry without significant crackles or wheezing. There is no significant bronchial sounds. There is no egophony or dullness. Heart: Regular rate and rhythm with an audible S1-S2, no S3 no S4. There is no significant murmur click or rub, PMI was nondisplaced. Abdomen: Positive bowel sounds soft and nontender without palpable masses or organomegaly. There was no guarding or rebound. Below the umbilicus is evidence of the abdominal abscess. It is currently measuring approximately 2 x 2 with a depth of 3 cm. Grossly purulent material emanates when it is manipulated. There is an area of erythema about 6 cm she abdominal wall and there is also a corresponding area of dense induration at this area of erythema. There some tenderness to the site. No other skin lesions are seen. There is no flank tenderness. Extremities: The upper extremities have excellent pulses they are symmetric, no significant petechiae or telangiectasia. No splinter hemorrhages were noted. The lower extremities are free from significant edema. The peripheral pulses were 2+ and symmetric. Neuro: Awake alert oriented to person place and time. There are no acute new gross focal sensory motor deficits. - Labs CBC & Chem 7: 11/02/17 04:49 11/03/17 06:50 Labs: Laboratory Results WBC 10.1 k/uL (3.8-10.6) 11/02/17 04:49 RBC 4.54 m/uL (4.30-5.90) 11/02/17 04:49 Hgb 12.7 gm/dL (13.0-17.5) L 11/02/17 04:49 Hct 40.8 % (39.0-53.0) 11/02/17 04:49 MCV 90.0 fL (80.0-100.0) 11/02/17 04:49 MCH 27.9 pg (25.0-35.0) 11/02/17 04:49 MCHC 31.0 g/dL (31.0-37.0) 11/02/17 04:49 RDW 14.9 % (11.5-15.5) 11/02/17 04:49 Plt Count 350 k/uL (150-450) 11/02/17 04:49 Neutrophils % 62 % 11/02/17 04:49 Lymphocytes % 20 % 11/02/17 04:49 Monocytes % 7 % 11/02/17 04:49 Eosinophils % 7 % 11/02/17 04:49 Basophils % 1 % 11/02/17 04:49 Neutrophils # 6.2 k/uL (1.3-7.7) 11/02/17 04:49 Lymphocytes # 2.0 k/uL (1.0-4.8) 11/02/17 04:49 Monocytes # 0.7 k/uL (0-1.0) 11/02/17 04:49 Eosinophils # 0.7 k/uL (0-0.7) 11/02/17 04:49 Basophils # 0.1 k/uL (0-0.2) 11/02/17 04:49 Hypochromasia Slight 11/02/17 04:49 PT 9.8 sec (9.0-12.0) 10/27/17 16:41 INR 1.0 (<1.2) 10/27/17 16:41 APTT 24.7 sec (22.0-30.0) 10/27/17 16:41 Sodium 140 mmol/L (137-145) 11/03/17 06:50 Potassium 4.5 mmol/L (3.5-5.1) 11/03/17 06:50 Chloride 104 mmol/L (98-107) 11/03/17 06:50 Carbon Dioxide 26 mmol/L (22-30) 11/03/17 06:50 Anion Gap 10 mmol/L 11/03/17 06:50 BUN 16 mg/dL (9-20) 11/03/17 06:50 Creatinine 0.93 mg/dL (0.66-1.25) 11/03/17 06:50 Est GFR (MDRD) Af Amer >60 (>60 ml/min/1.73 sqM) 11/03/17 06:50 Est GFR (MDRD) Non-Af >60 (>60 ml/min/1.73 sqM) 11/03/17 06:50 Glucose 98 mg/dL (74-99) 11/03/17 06:50 Plasma Lactic Acid Guru 1.4 mmol/L (0.7-2.0) 10/27/17 16:41 Calcium 9.4 mg/dL (8.4-10.2) 11/03/17 06:50 Total Bilirubin 0.7 mg/dL (0.2-1.3) 10/27/17 16:41 AST 28 U/L (17-59) 10/27/17 16:41 ALT 51 U/L (21-72) 10/27/17 16:41 Alkaline Phosphatase 105 U/L (38-126) 10/27/17 16:41 Total Protein 6.7 g/dL (6.3-8.2) 10/27/17 16:41 Albumin 3.6 g/dL (3.5-5.0) 10/27/17 16:41 Urine Color Yellow 10/27/17 16:36 Urine Appearance Clear (Clear) 10/27/17 16:36 Urine pH 5.5 (5.0-8.0) 10/27/17 16:36 Ur Specific [place] 1.017 (1.001-1.035) 10/27/17 16:36 Urine Protein 1+ (Negative) H 10/27/17 16:36 Urine Glucose (UA) Negative (Negative) 10/27/17 16:36 Urine Ketones Negative (Negative) 10/27/17 16:36 Urine Blood Small (Negative) H 10/27/17 16:36 Urine Nitrite Negative (Negative) 10/27/17 16:36 Urine Bilirubin Negative (Negative) 10/27/17 16:36 Urine Urobilinogen <2.0 mg/dL (<2.0) 10/27/17 16:36 Ur Leukocyte Esterase Small (Negative) H 10/27/17 16:36 Urine RBC 29 /hpf (0-5) H 10/27/17 16:36 Urine WBC 20 /hpf (0-5) H 10/27/17 16:36 Amorphous Sediment Rare /hpf (None) H 10/27/17 16:36 Urine Mucus Occasional /hpf (None) H 10/27/17 16:36 Gentamicin Peak <0.6 ug/mL 10/31/17 03:23 Gentamicin Trough <0.6 ug/mL 10/31/17 01:15 Vancomycin Trough 15.6 ug/mL 11/02/17 04:49 C. difficile (EIA) Intrp Negative (Negative) 11/01/17 16:50 Microbiology 10/29/17 00:15 Abdomen Anaerobic Culture - Final 10/29/17 00:15 Abdomen Gram Stain - Final 10/29/17 00:15 Abdomen Wound Culture - Final Staphylococcus aureus 10/27/17 16:41 Blood Blood Culture Gram Stain - Final 10/27/17 16:41 Blood Blood Culture - Final Staphylococcus epidermidis 10/27/17 16:36 Urine,Voided Urine Culture - Final 10/27/17 16:41 Blood Blood Culture - Preliminary Assessment and Plan (1) Postoperative wound infection Narrative/Plan: 56-year-old male presents to the emergency center as a referral from his clinic because of difficulties with abscess to his abdominal wall. Is noted he had a recent radical prostatectomy to an open procedure is had difficulty with healing of the incision. Abscesses form. Computed tomography scan shows evidence of ongoing abscess formation at this time. Because it is open is not under great pressure. There is extensive area of induration related to this infectious process. There is a blood culture that is positive for Staphylococcus epidermidis which will be a contamination. The wound culture however now is evidence of staph aureus, antimicrobial therapy is streamlined to only vancomycin therapy. Urinalysis is mildly abnormal and urine culture is pending. At this point in time continue ongoing supportive care. The ulceration is packed with the iodoform gauze and ABD pads to absorb drainage. The patient is up-to-date with his tetanus vaccine. Multivitamin is added. Ensure that he has a high-protein diet. Patient has been seen by surgery. They've reviewed the computed tomography scan does not believe he needs an acute surgical intervention. The [facility] appears to have no capacity to accept the transfer. Because he will not need surgical intervention we will plan on placing a PICC line and arrange for outpatient intravenous antibiotic therapy patient agrees to come to the office if possible. Orders and process and we will follow. [facility]. Current plan will be to have patient stay at our facility at least for Monday until he can get authorization for outpatient intravenous antibiotic therapy. Current Visit: No Status: Acute Code(s): T81.4XXA - INFECTION FOLLOWING A PROCEDURE, INITIAL ENCOUNTER SNOMED Code(s): 27804424 (2) UTI (urinary tract infection) Current Visit: No Status: Inactive Code(s): N39.0 - URINARY TRACT INFECTION , SITE NOT SPECIFIED SNOMED Code(s): 52923875
[2017-11-03] MEDS: HYDROmorphone 2 MG/ML 1 ML SYRINGE IVP PRN (18:54)
[2017-11-03] MEDS: ATORVASTATIN 40 MG TAB PO SCH (20:12)
[2017-11-04] MEDS: HYDROmorphone 2 MG/ML 1 ML SYRINGE IVP PRN ×3 (00:36→18:56)
[2017-11-04] MEDS: HEPARIN SODIUM,PORCINE 5,000 UNIT/ML 1 ML VIAL SQ SCH ×4 (00:37→23:31)
[2017-11-04] MEDS: VANCOMYCIN 2,000 MG in SODIUM CHLORIDE 0.9% 500 ML IVPB SCH ×2 (06:56→18:20)
[2017-11-04] MEDS: HYDROcodone/APAP 5-325MG 1 EACH TAB PO PRN ×3 (06:56→23:31)
[2017-11-04 07:45] LABS: Anion Gap 10 mmol/L; Blood Urea Nitrogen 18 mg/dL (9-20); Calcium 9.7 mg/dL (8.4-10.2); Carbon Dioxide 28 mmol/L (22-30); Chloride 103 mmol/L (98-107); Glucose 93 mg/dL (74-99); Potassium 4.4 mmol/L (3.5-5.1); Sodium 141 mmol/L (137-145)
[2017-11-04] MEDS: FAMOTIDINE 20 MG TAB PO SCH ×2 (08:33→21:06)
[2017-11-04] MEDS: HYDROCHLOROTHIAZIDE 25 MG TAB PO SCH (08:33)
[2017-11-04] MEDS: SERTRALINE 100 MG TAB PO SCH (08:33)
--- NOTE | 2017-11-04 18:41 | PN ---
PROGRESS NOTE DATE OF SERVICE: 11/04/2017 This 56-year-old gentleman who was admitted with abdominal wall abscess, had MSSA grown from the culture. The patient is awaiting outpatient antibiotic determination and arrangement. No chest pain. No palpitations. No fever. EXAM: Alert and oriented x3. Pulse 97, blood pressure 140/72, respiration 16, temperature 98.8, pulse ox 98% on room air. HEENT: Conjunctivae normal. CARDIOVASCULAR: S1, S2. RESPIRATORY: Breath sounds diminished in the bases. No rhonchi, no crackles. ABDOMEN: Soft, nontender. No mass palpable. LEGS: No edema, no swelling. NERVOUS SYSTEM: Higher functions as mentioned earlier. Moves all four limbs. No focal deficits. SKIN: No ulcers, rash or bleeding. LABS: WBC 10, hemoglobin 12.7. BMP noted. ASSESSMENT: 1. Acute abdominal wall abscess and recurrent postsurgical wound infection with MSSA. 2. Hypertension. 3. Depression. 4. Gastroesophageal reflux disease. 5. Hyperlipidemia. 6. History of asthma. 7. Obesity. RECOMMENDATIONS AND DISCUSSION: I recommend to continue current management and symptomatic treatment. Continue with IV antibiotics. Closely follow with case management team. Further recommendations to follow. MMODL / IJN: [id number] /
[2017-11-04] MEDS: ATORVASTATIN 40 MG TAB PO SCH (21:06)
[2017-11-05] MEDS ORDERED: VANCOMYCIN TROUGH DUE 1 EACH MISC MISCELLANE ONE (05:00)
[2017-11-05 05:28] LABS: Anion Gap 8 mmol/L; Blood Urea Nitrogen 19 mg/dL (9-20); Calcium 9.4 mg/dL (8.4-10.2); Carbon Dioxide 29 mmol/L (22-30); Chloride 103 mmol/L (98-107); Glucose 97 mg/dL (74-99); Potassium 4.3 mmol/L (3.5-5.1); Sodium 140 mmol/L (137-145)
[2017-11-05] MEDS: VANCOMYCIN 2,000 MG in SODIUM CHLORIDE 0.9% 500 ML IVPB SCH ×2 (05:31→17:52)
[2017-11-05] MEDS: HYDROcodone/APAP 5-325MG 1 EACH TAB PO PRN ×2 (05:31→13:13)
[2017-11-05] MEDS: HYDROmorphone 2 MG/ML 1 ML SYRINGE IVP PRN ×2 (05:37→15:38)
[2017-11-05] MEDS: SERTRALINE 100 MG TAB PO SCH (08:52)
[2017-11-05] MEDS: HYDROCHLOROTHIAZIDE 25 MG TAB PO SCH (08:52)
[2017-11-05] MEDS: HEPARIN SODIUM,PORCINE 5,000 UNIT/ML 1 ML VIAL SQ SCH ×3 (08:52→23:55)
[2017-11-05] MEDS: FAMOTIDINE 20 MG TAB PO SCH ×2 (08:52→19:32)
[2017-11-05] MEDS: ATORVASTATIN 40 MG TAB PO SCH (19:32)
[2017-11-05 20:27] VITALS: RESP 16
[2017-11-06] MEDS: HYDROcodone/APAP 5-325MG 1 EACH TAB PO PRN ×3 (01:16→16:50)
[2017-11-06] MEDS: VANCOMYCIN 2,000 MG in SODIUM CHLORIDE 0.9% 500 ML IVPB SCH (05:24)
[2017-11-06 07:36] LABS: Anion Gap 9 mmol/L; Blood Urea Nitrogen 19 mg/dL (9-20); Calcium 9.6 mg/dL (8.4-10.2); Carbon Dioxide 25 mmol/L (22-30); Chloride 106 mmol/L (98-107); Glucose 100 mg/dL (74-99); Potassium 4.8 mmol/L (3.5-5.1); Sodium 140 mmol/L (137-145)
[2017-11-06] MEDS: HEPARIN SODIUM,PORCINE 5,000 UNIT/ML 1 ML VIAL SQ SCH (07:54)
[2017-11-06] MEDS: FAMOTIDINE 20 MG TAB PO SCH (10:00)
[2017-11-06] MEDS: HYDROCHLOROTHIAZIDE 25 MG TAB PO SCH (10:00)
[2017-11-06] MEDS: SERTRALINE 100 MG TAB PO SCH (10:00)
[2017-11-06 15:07] VITALS: BP 154/82; PULSE 89; TEMP 98.4
--- NOTE | 2017-11-06 16:49 | PN ---
PROGRESS NOTE DATE OF SERVICE: 11/05/2017 INTERIM HISTORY: This 56-year-old gentleman admitted with abdominal abscess with MSSA grown, they are awaiting for IV antibiotic clearance, PICC line was inserted. No chest pain. No palpitations. No fever. PHYSICAL EXAM: Alert and oriented x3. The pulse is 92. Blood pressure 142/70, respiration 16, temperature 98.2, pulse ox 94% on room air. HEENT: Conjunctivae normal. Neck: No jugular venous distention. Cardiovascular: S1, S2. Respiratory: Breath sounds diminished in the bases. ABDOMEN: Soft, obese, nontender. Legs no edema: Nervous system: No focal deficits. Abdominal abscess present. LABS: BMP within normal limits. ASSESSMENT: 1. Acute abdominal abscess with recurrent positive infection with MSSA. 2. Hypertension. 3. Status post PICC line. 4. Depression. 5. Gastroesophageal reflux disease. 6. Hyperlipidemia. 7. History of asthma. 8. Obesity. RECOMMENDATIONS AND DISCUSSION: Recommend to continue current medications, management and symptomatic treatment. Otherwise, at this time, we will monitor the patient with closely. Broad- spectrum IV antibiotics. Continue to monitor. [facility] Further recommendations to follow. MMODL / IJN: [id number] / RACHEAL
--- NOTE | 2017-11-06 16:57 | PN ---
PROGRESS NOTE DATE OF SERVICE: 11/06/2017 This 56-year-old gentleman admitted with abdominal abscess is being closely monitored. MSSA is grown from the cultures. PICC line has been inserted. No chest pain. No palpitations. No fever. EXAM: Alert and oriented. Pulse 92, blood pressure 140/74, respirations 16, temperature 98.2, pulse ox 94% on room air. HEENT: Conjunctivae normal. NECK: No jugular venous distention. CARDIOVASCULAR: S1, S2. RESPIRATORY: Breath sounds diminished in the bases. No rhonchi, no crackles. ABDOMEN: Soft, obese, nontender. Abdominal abscess present. LEGS: No edema. NERVOUS SYSTEM: No focal deficit. PICC line present on the left arm. LABS: Noted. ASSESSMENT: 1. Acute abdominal abscess, recurrent possible wound infection with MSSA. 2. Hypertension. 3. Status post PICC line. 4. Depression. 5. Gastroesophageal reflux disease. 6. Hyperlipidemia. 7. History of asthma. RECOMMENDATIONS AND DISCUSSION: I recommend to continue current management and symptomatic treatment. Otherwise, will arrange IV antibiotics and will recommend transfer to appropriate setting at this time after [facility]. Further recommendations to follow. MMODL / IJN: [id number] /
--- NOTE | 2017-11-06 18:30 | P.PN ---
Subjective Progress Note Date: 11/06/17 Principal diagnosis: Abdominal abscess 56-year-old male presents to Hospital from the clinic review was evaluated because of difficulties with his abdominal wall. This pleasant gentleman has a history of prostate cancer. He underwent a radical prostatectomy the [facility] in [place]. Because of his obesity he could not have a robotic procedure. He relates that he is starting to feel somewhat better. However upon presentation to the clinic there is evidence of grossly purulent material emanating from the inferior wound on his abdominal wall. Because of this he was directed to hospital. He is not have a bit of an infection to that site and has been on outpatient oral antibiotic therapy. Despite this is site has worsened. He has purulent drainage and evidence of erythema tenderness in extensive induration to the abdominal wall. He has been admitted and been seen locally by surgery. However because of surgeries been done at the [facility]. He to be transferred there for any further surgical intervention. The patient has had a low-grade fever butbegin chills or rigors. Does not feel severely ill at this time. But does feel a bit fatigued. He's been recovering from his prostate surgery. He remains without fevers chills or rigors or sweats. His appetite is been adequate. He denies nausea or emesis or diarrhea. Denies any urinary symptoms is burning discomfort or urgency. He has no flank pains. No other skin rashes are noted. Is now doing better and information from the [place] relates they will not authorize outpatient IV antibiotic therapy. Objective - Vital Signs Vital signs: Vital Signs Temp 98.4 F 11/06/17 15:00 Pulse 89 11/06/17 15:00 Resp 16 11/06/17 15:00 BP 154/82 11/06/17 15:00 Pulse Ox 95 11/06/17 15:00 Intake & Output 11/05/17 11/06/17 11/06/17 18:59 06:59 18:59 Intake Total 5820 1590 Balance 5820 1590 Intake: Intake, IV Titration 500 Amount Vancomycin 2,000 mg In 500 Sodium Chloride 0.9% 500 ml @ 167 mls/hr IVPB Q12HR@0600,1800 [facility] Rx#: [id number] Oral 5820 1090 Other: Voiding Method Toilet Toilet Toilet # Voids 2 2 3 - Exam Pleasant 56-year-old male who has superobesity. Does not seem to be very uncomfortable the moment. But is having significant drainage from the abdominal lesion. Obese, HEENT: Anicteric conjunctiva are pink and moist nasal mucosa grossly intact without significant lesions, there is no thrush. Neck: The neck is supple without significant lymphadenopathy or thyromegaly. Lungs: Good bilateral air entry without significant crackles or wheezing. There is no significant bronchial sounds. There is no egophony or dullness. Heart: Regular rate and rhythm with an audible S1-S2, no S3 no S4. There is no significant murmur click or rub, PMI was nondisplaced. Abdomen: Positive bowel sounds soft and nontender without palpable masses or organomegaly. There was no guarding or rebound. Below the umbilicus is evidence of the abdominal abscess. It is currently measuring approximately 2 x 2 with a depth of 3 cm. Grossly purulent material emanates when it is manipulated. There is an area of erythema about 6 cm she abdominal wall and there is also a corresponding area of dense induration at this area of erythema. There some tenderness to the site. No other skin lesions are seen. There is no flank tenderness. Extremities: The upper extremities have excellent pulses they are symmetric, no significant petechiae or telangiectasia. No splinter hemorrhages were noted. The lower extremities are free from significant edema. The peripheral pulses were 2+ and symmetric. Neuro: Awake alert oriented to person place and time. There are no acute new gross focal sensory motor deficits. - Labs CBC & Chem 7: 11/02/17 04:49 11/06/17 06:46 Labs: Abnormal Lab Results - Last 24 Hours (Table) 11/06/17 Range/Units 06:46 Glucose 100 H (74-99) mg/dL Laboratory Results WBC 10.1 k/uL (3.8-10.6) 11/02/17 04:49 RBC 4.54 m/uL (4.30-5.90) 11/02/17 04:49 Hgb 12.7 gm/dL (13.0-17.5) L 11/02/17 04:49 Hct 40.8 % (39.0-53.0) 11/02/17 04:49 MCV 90.0 fL (80.0-100.0) 11/02/17 04:49 MCH 27.9 pg (25.0-35.0) 11/02/17 04:49 MCHC 31.0 g/dL (31.0-37.0) 11/02/17 04:49 RDW 14.9 % (11.5-15.5) 11/02/17 04:49 Plt Count 350 k/uL (150-450) 11/02/17 04:49 Neutrophils % 62 % 11/02/17 04:49 Lymphocytes % 20 % 11/02/17 04:49 Monocytes % 7 % 11/02/17 04:49 Eosinophils % 7 % 11/02/17 04:49 Basophils % 1 % 11/02/17 04:49 Neutrophils # 6.2 k/uL (1.3-7.7) 11/02/17 04:49 Lymphocytes # 2.0 k/uL (1.0-4.8) 11/02/17 04:49 Monocytes # 0.7 k/uL (0-1.0) 11/02/17 04:49 Eosinophils # 0.7 k/uL (0-0.7) 11/02/17 04:49 Basophils # 0.1 k/uL (0-0.2) 11/02/17 04:49 Hypochromasia Slight 11/02/17 04:49 PT 9.8 sec (9.0-12.0) 10/27/17 16:41 INR 1.0 (<1.2) 10/27/17 16:41 APTT 24.7 sec (22.0-30.0) 10/27/17 16:41 Sodium 140 mmol/L (137-145) 11/06/17 06:46 Potassium 4.8 mmol/L (3.5-5.1) 11/06/17 06:46 Chloride 106 mmol/L (98-107) 11/06/17 06:46 Carbon Dioxide 25 mmol/L (22-30) 11/06/17 06:46 Anion Gap 9 mmol/L 11/06/17 06:46 BUN 19 mg/dL (9-20) 11/06/17 06:46 Creatinine 0.87 mg/dL (0.66-1.25) 11/06/17 06:46 Est GFR (MDRD) Af Amer >60 (>60 ml/min/1.73 sqM) 11/06/17 06:46 Est GFR (MDRD) Non-Af >60 (>60 ml/min/1.73 sqM) 11/06/17 06:46 Glucose 100 mg/dL (74-99) H 11/06/17 06:46 Plasma Lactic Acid Guru 1.4 mmol/L (0.7-2.0) 10/27/17 16:41 Calcium 9.6 mg/dL (8.4-10.2) 11/06/17 06:46 Total Bilirubin 0.7 mg/dL (0.2-1.3) 10/27/17 16:41 AST 28 U/L (17-59) 10/27/17 16:41 ALT 51 U/L (21-72) 10/27/17 16:41 Alkaline Phosphatase 105 U/L (38-126) 10/27/17 16:41 Total Protein 6.7 g/dL (6.3-8.2) 10/27/17 16:41 Albumin 3.6 g/dL (3.5-5.0) 10/27/17 16:41 Urine Color Yellow 10/27/17 16:36 Urine Appearance Clear (Clear) 10/27/17 16:36 Urine pH 5.5 (5.0-8.0) 10/27/17 16:[address] [place] 1.017 (1.001-1.035) 10/27/17 16:36 Urine Protein 1+ (Negative) H 10/27/17 16:36 Urine Glucose (UA) Negative (Negative) 10/27/17 16:36 Urine Ketones Negative (Negative) 10/27/17 16:36 Urine Blood Small (Negative) H 10/27/17 16:36 Urine Nitrite Negative (Negative) 10/27/17 16:36 Urine Bilirubin Negative (Negative) 10/27/17 16:36 Urine Urobilinogen <2.0 mg/dL (<2.0) 10/27/17 16:36 Ur Leukocyte Esterase Small (Negative) H 10/27/17 16:36 Urine RBC 29 /hpf (0-5) H 10/27/17 16:36 Urine WBC 20 /hpf (0-5) H 10/27/17 16:36 Amorphous Sediment Rare /hpf (None) H 10/27/17 16:36 Urine Mucus Occasional /hpf (None) H 10/27/17 16:36 Gentamicin Peak <0.6 ug/mL 10/31/17 03:23 Gentamicin Trough <0.6 ug/mL 10/31/17 01:15 Vancomycin Trough 17.5 ug/mL 11/05/17 05:00 C. difficile (EIA) Intrp Negative (Negative) 11/01/17 16:50 Microbiology 10/29/17 00:15 Abdomen Anaerobic Culture - Final 10/29/17 00:15 Abdomen Gram Stain - Final 10/29/17 00:15 Abdomen Wound Culture - Final Staphylococcus aureus 10/27/17 16:41 Blood Blood Culture Gram Stain - Final 10/27/17 16:41 Blood Blood Culture - Final Staphylococcus epidermidis 10/27/17 16:36 Urine,Voided Urine Culture - Final 10/27/17 16:41 Blood Blood Culture - Preliminary Assessment and Plan (1) Postoperative wound infection Narrative/Plan: 56-year-old male presents to the emergency center as a referral from his clinic because of difficulties with abscess to his abdominal wall. Is noted he had a recent radical prostatectomy to an open procedure is had difficulty with healing of the incision. Abscesses form. Computed tomography scan shows evidence of ongoing abscess formation at this time. Because it is open is not under great pressure. There is extensive area of induration related to this infectious process. There is a blood culture that is positive for Staphylococcus epidermidis which will be a contamination. The wound culture however now is evidence of staph aureus, antimicrobial therapy is streamlined to only vancomycin therapy. Urinalysis is mildly abnormal . At this point in time continue ongoing supportive care. The ulceration is packed with the iodoform gauze and ABD pads to absorb drainage. The patient is up-to-date with his tetanus vaccine. Multivitamin is added. Ensure that he has a high-protein diet. Patient has been seen by surgery. They've reviewed the computed tomography scan does not believe he needs an acute surgical intervention. [facility]. Because he will not need surgical intervention we will plan on placing a PICC line and arrange for outpatient intravenous antibiotic therapy patient agrees to come to the office if possible. Orders and process and we will follow. Currently having great difficulties with the [facility]. Current plan will be to have patient stay at our facility at least for Monday until he can get authorization for outpatient intravenous antibiotic therapy. Will discharge with po high dose cephalexin, will follow in office on Monday and consider PICC removal or referral to [facility] at that time. Status: Inactive Code(s): T81.4XXA - INFECTION FOLLOWING A PROCEDURE, INITIAL ENCOUNTER SNOMED Code(s): 64950347 (2) UTI (urinary tract infection) Status: Inactive Code(s): N39.0 - URINARY TRACT INFECTION, SITE NOT SPECIFIED SNOMED Code(s): 24687057
--- NOTE | 2017-11-07 09:32 | DS ---
DISCHARGE SUMMARY FINAL DIAGNOSES: 1. Acute abdominal wall abscess with recurrent postsurgical wound infection with MSSA. 2. Status post PICC line. 3. Hypertension. 4. Depression. 5. Gastroesophageal reflux disease. 6. Hyperlipidemia. 7. History of asthma. DISCHARGE DISPOSITION: The patient is being discharged in stable condition with guarded prognosis. Infectious disease evaluation cleared the patient for discharge. HISTORY OF PRESENT ILLNESS: This 56-year-old male with a past medical history of multiple medical problems admitted with abdominal abscess, recurrent abscess, MSSA, treated with IV antibiotics. The PICC line is inserted, but however the [facility] not [facility] as outpatient so Dr. Alcantar recommended p.o. antibiotics for now and can keep the PICC line and review in the outpatient setting. On exam, vital signs stable. Cardiovascular: S1, S2. DISCHARGE ADVICE AND MEDICATIONS: 1. Diet is cardiac diet. 2. Activity limited until Followup. 3. Follow up with Dr. Pagan in 2-3 days. 4. Follow up with Dr. Alcantar as advised. 5. [facility] with [facility] as [facility]. 6. Tylenol 650 q.6 p.r.n. 7. Albuterol p.r.n. 8. Keflex 500 mg q.6 hours for [address] Alcantar. 9. Pepcid 20 mg p.o. b.i.d. 10.HydroDIURIL 25 mg q.h.s. 11.[place] 5 mg q.4h p.r.n. 12.Motrin 800 mg q.8h p.r.n. 13.Zoloft 100 mg daily. 14.Gas-X p.r.n. 15.Zocor 80 mg q.h.s. 16.Trazodone 50 mg q.h.s. MMODL / IJN: [id number] / MTDD
--- NOTE | 2017-11-21 11:22 | IR ---
PICC LINE PLACEMENT: HISTORY: Infection requiring long-term antibiotic therapy PROCEDURE: Ultrasound and fluoroscopic guidance of PICC line placement. COMPLICATIONS: None ANESTHESIA: 1. 1% Lidocaine locally. FINDINGS/TECHNIQUE: The procedure was explained to the patient. The risks, complications, benefits and alternatives were discussed and any questions were answered. Informed consent was obtained. The patient was placed supine on the fluoroscopic table and prepped and draped in the usual sterile fash ion. Utilizing a 21 gauge needle and sonographic and fluoroscopic guidance, access in the left basi lic vein vein was achieved and there is placement of a 0.018 guidewire. The vein is patent. A 4-F s diane was placed over the guidewire. The guidewire and dilator were removed and a 4-F. PICC line was placed through the sheath with the tip at the level of the SVC. The sheath was removed, the cathete r was flushed and sutured into position. The patient was stable throughout the procedure and remaine d stable upon discharge from the Department of Radiology. The vein puncture was patent under ultrasound. A walton scale image was obtained to document patency of the vein punctured. All elements of the maximal barrier technique were utilized. FLUOROSCOPY TIME: 0.2 minutes, one image submitted IMPRESSION: Successful PICC line placement under ultrasound and fluoroscopic guidance.
== END 2017-11-06 17:40 | disposition home health service (06) | DRG 863 ==
LOC: EC 15:49 → 3SUR 18:08
PROVIDERS: ADMIT Internal Medicine; ATTEND Internal Medicine
PROC: 02HV33Z Insertion of Infusion Device into Superior Vena Cava, Percutaneous Approach (ICD-10-PCS; principal; 2017-10-27)
DX: T81.4XXA Infection following a procedure, initial encounter (principal); L02.211 Cutaneous abscess of abdominal wall; L03.311 Cellulitis of abdominal wall; Z68.41 Body mass index [BMI] 40.0-44.9, adult; B95.61 Methicillin susceptible Staphylococcus aureus infection as the cause of diseases classified elsewhere; E66.9 Obesity, unspecified; E78.5 Hyperlipidemia, unspecified; F43.10 Post-traumatic stress disorder, unspecified; I10 Essential (primary) hypertension; J45.909 Unspecified asthma, uncomplicated; K21.9 Gastro-esophageal reflux disease without esophagitis; R19.7 Diarrhea, unspecified; Z77.090 Contact with and (suspected) exposure to asbestos; Z79.899 Other long term (current) drug therapy; Z91.048 Other nonmedicinal substance allergy status; Z85.46 Personal history of malignant neoplasm of prostate; Z82.49 Family history of ischemic heart disease and other diseases of the circulatory system
CPT/HCPCS: 36415; 36569; 74177; 76937; 77001; 80048; 80053; 80170; 80202; 81001; 83605; 85025; 85027; 85610; 85730; 87040; 87070; 87075; 87077; 87086; 87186; 87205; 87324; 94640; 94760; 96361; 96365; 96375; 99284

== ENCOUNTER → 2018-02-05 | Outpatient (CLI) | payer OTHER ==
[2018-02-05 16:14] LABS: Basophils # (A) 0.1 k/uL (0-0.2); Basophils % (A) 1 %; Eosinophils # (A) 0.6 k/uL (0-0.7); Eosinophils % (A) 5 %; HCT 47.7 % (39.0-53.0); HGB 15.1 gm/dL (13.0-17.5); Lymphocytes # (A) 2.5 k/uL (1.0-4.8); Lymphocytes % (A) 20 %; MCH 26.8 pg (25.0-35.0); MCHC 31.7 g/dL (31.0-37.0); MCV 84.4 fL (80.0-100.0); Monocytes # (A) 1.1 k/uL (0-1.0); Monocytes % (A) 8 %; Neutrophils # (A) 7.8 k/uL (1.3-7.7); Neutrophils % (A) 62 %; Platelet Count 364 k/uL (150-450); RBC 5.65 m/uL (4.30-5.90); RDW 14.9 % (11.5-15.5); WBC 12.5 k/uL (3.8-10.6)
[2018-02-05 16:23] LABS: Total Bilirubin 0.6 mg/dL (0.2-1.3)
[2018-02-05 18:00] LABS: Prostate Specific Antigen 1.58 ng/mL (0.00-4.00)
== END | disposition home or self-care (01) ==
LOC: LABWHC1 15:48
PROVIDERS: ATTEND Radiology Radiation Oncology
DX: C61 Malignant neoplasm of prostate (principal)
CPT/HCPCS: 36415; 82247; 84153; 84402; 84450; 84460; 85025

== ENCOUNTER → 2018-02-09 | Outpatient (CLI) | payer OTHER | END | disposition home or self-care (01) | LOC: RADMRIMAIN 15:57 | PROVIDERS: ATTEND Radiology Radiation Oncology | DX: Z53.9 Procedure and treatment not carried out, unspecified reason (principal) ==

== ENCOUNTER → 2018-02-12 | Outpatient (CLI) | payer OTHER ==
--- NOTE | 2018-02-12 14:52 | NM ---
EXAMINATION TYPE: NM bone scan whole body DATE OF EXAM: 02/12/2018 COMPARISON: NONE HISTORY: Prostate cancer Delayed whole-body scanning was performed following the injection of 25.5 mCi Tc 99m MDP. Images acq uired 3 hours post injection. FINDINGS: There is abnormal uptake involving the knees, ankles, feet and shoulders and sternoclavicular joints which appear post arthritic. There is a curvature of the vertebral column with mild increased uptake throughout the thoracic and l umbar spine which is most typical degenerative changes. Renal outlines demonstrate symmetric uptake. Assessment of the femoral head region is somewhat limite d technically but grossly no abnormality is seen. IMPRESSION: No diagnostic evidence of metastases. Uptake throughout the vertebral column is of mild intensity and felt to be most likely on the basis of degenerative disc disease.
== END | disposition home or self-care (01) ==
LOC: RADNMMAIN 10:40
PROVIDERS: ATTEND Radiology Radiation Oncology
DX: C61 Malignant neoplasm of prostate (principal); Z91.048 Other nonmedicinal substance allergy status
CPT/HCPCS: 78306; A9503

== ENCOUNTER 2018-04-07 14:06 | Emergency (ER) | payer OTHER ==
--- NOTE | 2018-04-07 15:53 | ED ---
General Adult HPI - General Chief complaint: Extremity Injury, Lower Stated complaint: rt knee injury Time Seen by Provider: 04/07/18 15:16 Source: patient, RN notes reviewed Mode of arrival: wheelchair Limitations: no limitations - History of Present Illness Initial comments: 57-year-old male presents to the emergency department for a chief complaint of right knee pain. Patient states the pain has been worse since he was walking downstairs today and felt a pop in the knee. Patient denies falling or any other injuries. Patient does admit that he has had pain behind the knee for about one week. Patient states the knee is swelling since he felt a pop today. Patient states he has a history of prostate cancer for which is requiring further treatment than surgery which he has already undergone. Patient denies history of blood clots.Patient has no other complaints at this time including shortness of breath, chest pain, abdominal pain, nausea or vomiting, headache, or visual changes. - Related Data Home Medications Medication Instructions Recorded Confirmed Albuterol Inhaler [Ventolin Hfa 2 puff INHALATION RT-Q6H PRN 04/27/14 10/27/17 Inhaler] Hydrochlorothiazide [Hydrodiuril] 25 mg PO HS 04/27/14 10/27/17 Sertraline [Zoloft] 100 mg PO DAILY 04/27/14 10/27/17 Simethicone [Gas-X] 125 mg PO DAILY PRN 10/01/17 10/27/17 traZODone HCL 50 mg PO HS 10/01/17 10/27/17 Simvastatin [Zocor] 80 mg PO HS 10/05/17 10/27/17 Ibuprofen [Motrin] 800 mg PO Q6H PRN 10/27/17 10/27/17 Previous Rx's Medication Instructions Recorded Acetaminophen Tab [Tylenol] 650 mg PO Q6HR PRN tab 11/06/17 Cephalexin [Keflex] 500 mg PO Q6HR #40 cap 11/06/17 Famotidine [Pepcid] 20 mg PO BID #30 tab 11/06/17 HYDROcodone/APAP 5-325MG [Emmett 1 each PO Q4HR PRN #15 tab 11/06/17 5-325] Ibuprofen [Motrin] 600 mg PO Q8HR PRN #20 tab 04/07/18 Allergies Allergy/AdvReac Type Severity Reaction Status Date / Time adhesive tape Allergy Rash/Hives Verified 04/07/18 14:24 Review of Systems ROS Statement: Those systems with pertinent positive or pertinent negative responses have been documented in the HPI. ROS Other: All systems not noted in ROS Statement are negative. Past Medical History Past Medical History: Asthma, Cancer, GERD/Reflux, Hyperlipidemia, Pneumonia, Prostate Disorder Additional Past Medical History / Comment(s): peripheral edema. 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 History of Any Multi-Drug Resistant Organisms: None Reported Date of last positivie culture/infection: 10/01/17 MDRO Source:: incision Past Surgical History: Appendectomy, Prostate Surgery Additional Past Surgical History / Comment(s): as youth fell on broken glass jar and cut tendons lt writs-had sx to repair.left wrist carpal tunnel release, , left shoulder rotator reconstruction and has a pin in place, cystectomy tailbone, open abdominal surgery to remove prsotate Past Anesthesia/Blood Transfusion Reactions: No Reported Reaction Past Psychological History: PTSD Smoking Status: Never smoker Past Alcohol Use History: None Reported Past Drug Use History: None Reported - Past Family History Father Family Medical History: Congestive Heart Failure (CHF), Hypertension Mother Additional Family Medical History / Comment(s): depression General Exam Limitations: no limitations General appearance: alert, in no apparent distress Head exam: Present: atraumatic, normocephalic, normal inspection Eye exam: Present: normal appearance ENT exam: Present: normal exam, mucous membranes moist Neck exam: Present: normal inspection, full ROM. Absent: tenderness, meningismus, lymphadenopathy Respiratory exam: Present: normal lung sounds bilaterally. Absent: respiratory distress, wheezes, rales, rhonchi, stridor Cardiovascular Exam: Present: regular rate, normal rhythm, normal heart sounds. Absent: systolic murmur, diastolic murmur, rubs, gallop, clicks Extremities exam: Present: tenderness (Tenderness posterior to the right knee as well as lateral to the right knee. ), normal capillary refill (Refill less than 2 seconds and pedal pulse 2+ in the right lower extremity.), joint swelling (Patient does have mild swelling of the right knee. No swelling in the calf.), calf tenderness (Patient does have mild calf tenderness and posterior knee tenderness in the right lower extremity. There is swelling in the right knee but not so much in the calf. Negative Homans sign. No redness or warmth in the right calf.). Absent: full ROM (Patient has about 90 flexion of the right knee, full extension. Full range of motion of the right hip and ankle.), pedal edema Course Vital Signs 04/07/18 14:20 Temperature 98.5 F Pulse Rate 89 Respiratory 20 Rate Blood Pressure 146/79 O2 Sat by Pulse 97 Oximetry Medical Decision Making - Medical Decision Making 57-year-old male presents to the emergency department for a chief complaint of right knee pain. Patient states the pain was worsened today when he was walking down the stairs and felt a pop in his right knee. It has been increasing in swelling since that time. Patient admits to pain behind the right knee for one week. Patient denies history of blood clots but states he does currently have prostate cancer. On exam patient does have some swelling of the right knee. Tenderness to the posterior and lateral right knee. Mild tenderness in the calf. No swelling or redness or warmth noted in the right calf. Neurovascular intact. Ultrasound of the right lower extremity shows no DVT. The x-ray shows small to moderate knee joint effusion. No acute osseous abnormality seen. Patient was wrapped with an Artie wrap. He will take Motrin for pain. He [place] follow [place] with primary and [place]o. He is aware that if symptoms do not resolve he may need additional testing such as an MRI. He will return to the emergency department if he has any worsening symptoms. Patient has crutches at home that he can use. Disposition Clinical Impression: Knee pain, right Disposition: HOME SELF-CARE Condition: Good Instructions: Knee Pain (ED), RICE Therapy (ED) Additional Instructions: Please take Motrin or Tylenol for pain. Please rest ice and elevate the knee. Use crutches if necessary. Follow up [place] the [place] in one to 2 days. Prescriptions: Ibuprofen [Motrin] 600 mg PO Q8HR PRN #20 tab PRN Reason: Pain Is patient prescribed a controlled substance at d/c from ED?: No Referrals: [facility]inic [Primary Care Provider] - 1-2 days Time of Disposition: 17:31
--- NOTE | 2018-04-07 15:55 | XR ---
EXAMINATION TYPE: XR knee complete RT DATE OF EXAM: 04/07/2018 COMPARISON: NONE HISTORY: 57-year-old male with pain TECHNIQUE: 3 views FINDINGS: [id number] knee joint effusion. Mild anterior soft tissue swelling. No acute fracture, subluxa tion, or dislocation. Extensor mechanism is intact. IMPRESSION: Small to moderate knee joint effusion. No acute osseous abnormality seen. If concern for internal patricia angement, follow-up MRI.
[2018-04-07] MEDS ORDERED: IBUPROFEN 600 MG TAB PO STA (16:04)
--- NOTE | 2018-04-07 17:15 | US ---
EXAMINATION TYPE: US venous doppler duplex LE RT DATE OF EXAM: 04/07/2018 3:17 PM COMPARISON: NONE CLINICAL HISTORY: 57-year-old male Pain behind knee x1 wk, h/o CA. Right knee pain x 1 week. No hx o f blood clots or on blood thinners. SIDE PERFORMED: Right. Grayscale, color doppler, spectral doppler imaging performed of the deep vein s of the right lower extremity. TECHNIQUE: The lower extremity deep venous system is examined utilizing real time linear array sonog pablo with graded compression, doppler sonography and color-flow sonography. FINDINGS: VESSELS IMAGED: External Iliac Vein (EIV) Common Femoral Vein Deep Femoral Vein Greater Saphenous Vein * Femoral Vein Popliteal Vein Small Saphenous Vein * Proximal Calf Veins (* superficial vessels) Right Leg: There is normal flow, compressibility, vascular waveforms. Negative for DVT IMPRESSION: No evidence for DVT within the right lower extremity imaged from the groin to the upper calf.
[2018-04-07 18:24] VITALS: BP 135/87; PULSE 87; RESP 18; TEMP 97.4
== END 2018-04-07 18:24 | disposition home or self-care (01) ==
LOC: EC 14:06
DX: M25.461 Effusion, right knee (principal); C61 Malignant neoplasm of prostate; J45.909 Unspecified asthma, uncomplicated; E78.5 Hyperlipidemia, unspecified; F43.10 Post-traumatic stress disorder, unspecified; Z79.899 Other long term (current) drug therapy; Z91.09 Other allergy status, other than to drugs and biological substances; Z98.890 Other specified postprocedural states; X50.9XXA Other and unspecified overexertion or strenuous movements or postures, initial encounter; Y93.01 Activity, walking, marching and hiking
CPT/HCPCS: 99284

== ENCOUNTER → 2018-05-10 | Outpatient (CLI) | payer OTHER | END | disposition home or self-care (01) | LOC: LABWHC1 14:22 | PROVIDERS: ATTEND Radiology Radiation Oncology | DX: C61 Malignant neoplasm of prostate (principal) | CPT/HCPCS: 36415; 84153 ==

== ENCOUNTER 2020-09-15 17:26 | Inpatient (IN) | payer OTHER, BC ==
[2020-09-15] MEDS ORDERED: ALBUTEROL NEBULIZED 2.5 MG/3 ML INHALATION STA (18:03)
[2020-09-15] MEDS ORDERED: methylPREDNISolone SOD SUCCI 125 MG/2 ML VIAL IV STA (18:03)
[2020-09-15 18:18] LABS: Basophils # (A) 0.3 k/uL (0-0.2); Basophils % (A) 2 %; Eosinophils # (A) 0.1 k/uL (0-0.7); Eosinophils % (A) 1 %; HCT 47.4 % (39.0-53.0); HGB 15.5 gm/dL (13.0-17.5); Lymphocytes # (A) 0.9 k/uL (1.0-4.8); Lymphocytes % (A) 6 %; MCH 29.5 pg (25.0-35.0); MCHC 32.8 g/dL (31.0-37.0); Mean Platelet Volume 7.4; Monocytes # (A) 1.2 k/uL (0-1.0); Monocytes % (A) 8 %; Neutrophils # (A) 12.2 k/uL (1.3-7.7); Neutrophils % (A) 81 %; Platelet Count 271 k/uL (150-450); RBC 5.27 m/uL (4.30-5.90); RDW 13.7 % (11.5-15.5)
[2020-09-15 18:30] LABS: ALT 43 U/L (4-49); AST 53 U/L (17-59); African American GFR (CKD) >90 (>60 ml/min/1.73 sqM); Albumin 3.9 g/dL (3.5-5.0); Alkaline Phosphatase 111 U/L (38-126); Anion Gap 7 mmol/L; Blood Urea Nitrogen 17 mg/dL (9-20); Carbon Dioxide 26 mmol/L (22-30); Chloride 100 mmol/L (98-107); Glucose 166 mg/dL (74-99); Magnesium 1.9 mg/dL (1.6-2.3); Non-African American GFR(CKD) >90 (>60 ml/min/1.73 sqM); Potassium 4.4 mmol/L (3.5-5.1); Sodium 133 mmol/L (137-145); Total Bilirubin 1.6 mg/dL (0.2-1.3)
[2020-09-15 18:33] LABS: INR 0.9 (<1.2); Partial Thromboplastin Time 28.7 sec (22.0-30.0); Prothrombin Time 9.9 sec (9.0-12.0)
[2020-09-15] MEDS ORDERED: IPRATROPIUM-ALBUTEROL 3 ML NEB INHALATION STA (18:42)
[2020-09-15 18:46] LABS: D-Dimer 0.97 mg/L FEU (<0.60)
--- NOTE | 2020-09-15 18:56 | XR ---
EXAMINATION TYPE: XR chest 2V DATE OF EXAM: 09/15/2020 COMPARISON: 10/05/2017 HISTORY: Difficulty breathing TECHNIQUE: FINDINGS: There are some patchy bilateral interstitial infiltrates in the mid lung strauss. There is n o heart failure. Heart size is normal. There are no hilar masses. IMPRESSION: There is new bilateral predominantly interstitial pneumonia compared to old exam. Normal heart. No obvious heart failure.
--- NOTE | 2020-09-15 19:57 | CT ---
EXAMINATION TYPE: CT chest angio for PE DATE OF EXAM: 09/15/2020 COMPARISON: None HISTORY: Dyspnea. CT DLP: 941.6 mGycm Automated exposure control for dose reduction was used. CONTRAST: Performed with IV Contrast, patient injected with 100 mL of Isovue 370. There are 3-D post processed images. There is some patchy groundglass interstitial infiltrates throughout both lungs and more in the perip richard of the lung strauss. There are a few mediastinal lymph nodes that measure up to 1.3 cm. Thoracic aorta is intact. There is no aneurysm or dissection. There are no hilar masses. There is normal contrast opacification of the pulmonary arteries. There are no filling defects. There is no pleural effusion. There is no evidence of a pulmonary mass. Upper abdominal soft tissues are i ntact. The bony thorax is intact. There is spurring in the lower thoracic spine. IMPRESSION: Groundglass pulmonary interstitial pneumonia. No evidence of pulmonary embolism. Fatty infiltration of the liver. Nonspecific mediastinal adenopathy.
[2020-09-15] MEDS ORDERED: AZITHROMYCIN 500 MG in SODIUM CHLORIDE 0.9% 250 ML IVPB STA (20:10)
--- NOTE | 2020-09-15 20:10 | ED ---
SOB HPI - General Chief Complaint: Shortness of Breath Stated Complaint: MAURY Time Seen by Provider: 09/15/20 17:53 Source: patient Mode of arrival: wheelchair Limitations: no limitations - History of Present Illness Initial Comments: 59-year-old male with hx of asthma and prostate cancer s/p treatment presenting today for chief complaint of "asthma attack" pt states he has been wheezing and having difficulty with breathing for past two dyas. denies chest pain, nausae, vomiting, jaw pain or arm pain. Pt denies cough, fevers. pt states that when sob persisted despite his rescue inhaler he decided it was best to come to the ER. Denies leg swelling, calf pain, hemoptysis. States sputum is clear. Denies headaches, neck stiffness or abdominal pain. pt has no additional complaints. remaining ROS (-). - Related Data Home Medications Medication Instructions Recorded Confirmed Atorvastatin [Lipitor] 80 mg PO DAILY 09/15/20 09/15/20 Furosemide [Lasix] 20 mg PO DAILY 09/15/20 09/15/20 Potassium Chloride ER [K-Dur 10] 10 meq PO DAILY 09/15/20 09/15/20 buPROPion [Wellbutrin] 150 mg PO DAILY 09/15/20 09/15/20 Allergies Allergy/AdvReac Type Severity Reaction Status Date / Time adhesive tape Allergy Rash/Hives Verified 09/15/20 20:13 Review of Systems ROS Statement: Those systems with pertinent positive or pertinent negative responses have been documented in the HPI. ROS Other: All systems not noted in ROS Statement are negative. Past Medical History Past Medical History: Asthma, Cancer, GERD/Reflux, Hyperlipidemia, Pneumonia, Prostate Disorder Additional Past Medical History / Comment(s): peripheral edema. 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 History of Any Multi-Drug Resistant Organisms: None Reported Date of last positivie culture/infection: 10/01/17 MDRO Source:: incision Past Surgical History: Appendectomy, Prostate Surgery Additional Past Surgical History / Comment(s): as youth fell on broken glass jar and cut tendons lt writs-had sx to repair.left wrist carpal tunnel release, , left shoulder rotator reconstruction and has a pin in place, cystectomy tailbone, open abdominal surgery to remove prsotate Past Anesthesia/Blood Transfusion Reactions: No Reported Reaction Past Psychological History: PTSD Smoking Status: Never smoker Past Alcohol Use History: None Reported Past Drug Use History: None Reported - Past Family History Father Family Medical History: Congestive Heart Failure (CHF), Hypertension Mother Additional Family Medical History / Comment(s): depression General Exam - General Exam Comments Initial Comments: General: The patient is awake and alert, in no distress Eye: Pupils are equal, round and reactive to light, extra-ocular movements are intact. No nystagmus. There is normal conjunctiva bilaterally. No signs of icterus. Ears, nose, mouth and throat: There are moist mucous membranes and no oral lesions. Neck: The neck is supple, there is no tenderness or JVD. Cardiovascular: There is a regular rate and rhythm. No murmur, rub or gallop is appreciated. Respiratory: Dimished air movement, and lung sounds throughout. Mildly labored breathing with audible wheeze on initial exam. breath sounds are equal. No stridor, rales. Rhonchi present. Gastrointestinal: Soft, non-distended, non-tender abdomen without masses or organomegaly noted. There is no rebound or guarding present. Musculoskeletal: Normal ROM, no tenderness. Strength 5/5. Sensation intact. Radial and DP pulses equal bilaterally 2+. Neurological: A&O x 3. CN II-XII intact, There are no obvious motor or sensory deficits. Coordination appears grossly intact. Speech is normal. Skin: Skin is warm and dry and no rashes or lesions are noted. No LE edema. no calf pain or swelling. Psychiatric: Cooperative, appropriate mood & affect, normal judgment. Limitations: no limitations Course Vital Signs 09/15/20 09/15/20 09/15/20 17:39 18:14 18:27 Temperature 99.1 F Pulse Rate 106 H 82 84 Respiratory 20 20 20 Rate Blood Pressure 156/79 O2 Sat by Pulse 94 L Oximetry 09/15/20 09/15/20 09/15/20 18:39 18:57 19:10 Temperature Pulse Rate 105 H 82 83 Respiratory 22 20 20 Rate Blood Pressure 146/77 O2 Sat by Pulse 91 L Oximetry 09/15/20 19:30 Temperature Pulse Rate 102 H Respiratory 20 Rate Blood Pressure 134/88 O2 Sat by Pulse 93 L Oximetry Medical Decision Making - Medical Decision Making leukocytosis, pneumonia on CTA, no PE. Patient improved after second treatment, better lung sounds with decreased work of breathing and more movement. Pt still has diminshed sounds throughout however, was hypoxic in low 90s will admit for further treatments, treatment of pneumonia. which is suspected to be secondary to covid 19 infection. - Lab Data Result diagrams: 09/15/20 17:55 09/15/20 17:55 Lab Results 09/15/20 09/15/20 09/15/20 Range/Units 17:55 17:55 17:55 WBC 15.0 H (3.8-10.6) k/uL RBC 5.27 (4.30-5.90) m/uL Hgb 15.5 (13.0-17.5) gm/dL Hct 47.4 (39.0-53.0) % MCV 90.0 (80.0-100.0) fL MCH 29.5 (25.0-35.0) pg MCHC 32.8 (31.0-37.0) g/dL RDW 13.7 (11.5-15.5) % Plt Count 271 (150-450) k/uL MPV 7.4 Neutrophils % 81 % Lymphocytes % 6 % Monocytes % 8 % Eosinophils % 1 % Basophils % 2 % Neutrophils # 12.2 H (1.3-7.7) k/uL Lymphocytes # 0.9 L (1.0-4.8) k/uL Monocytes # 1.2 H (0-1.0) k/uL Eosinophils # 0.1 (0-0.7) k/uL Basophils # 0.3 H (0-0.2) k/uL PT 9.9 (9.0-12.0) sec INR 0.9 (<1.2) APTT 28.7 (22.0-30.0) sec D-Dimer 0.97 H (<0.60) mg/L FEU Sodium 133 L (137-145) mmol/L Potassium 4.4 (3.5-5.1) mmol/L Chloride 100 (98-107) mmol/L Carbon Dioxide 26 (22-30) mmol/L Anion Gap 7 mmol/L BUN 17 (9-20) mg/dL Creatinine 0.88 (0.66-1.25) mg/dL Est GFR (CKD-EPI)AfAm >90 (>60 ml/min/1.73 sqM) Est GFR (CKD-EPI)NonAf >90 (>60 ml/min/1.73 sqM) Glucose 166 H (74-99) mg/dL Plasma Lactic Acid Guru (0.7-2.0) mmol/L Calcium 9.0 (8.4-10.2) mg/dL Magnesium 1.9 (1.6-2.3) mg/dL Total Bilirubin 1.6 H (0.2-1.3) mg/dL AST 53 (17-59) U/L ALT 43 (4-49) U/L Alkaline Phosphatase 111 (38-126) U/L Troponin I (0.000-0.034) ng/mL NT-Pro-B Natriuret Pep pg/mL Total Protein 7.0 (6.3-8.2) g/dL Albumin 3.9 (3.5-5.0) g/dL Coronavirus (PCR) (Not Detectd) 09/15/20 09/15/20 09/15/20 Range/Units 17:55 17:55 17:55 WBC (3.8-10.6) k/uL RBC (4.30-5.90) m/uL Hgb (13.0-17.5) gm/dL Hct (39.0-53.0) % MCV (80.0-100.0) fL MCH (25.0-35.0) pg MCHC (31.0-37.0) g/dL RDW (11.5-15.5) % Plt Count (150-450) k/uL MPV Neutrophils % % Lymphocytes % % Monocytes % % Eosinophils % % Basophils % % Neutrophils # (1.3-7.7) k/uL Lymphocytes # (1.0-4.8) k/uL Monocytes # (0-1.0) k/uL Eosinophils # (0-0.7) k/uL Basophils # (0-0.2) k/uL PT (9.0-12.0) sec INR (<1.2) APTT (22.0-30.0) sec D-Dimer (<0.60) mg/L FEU Sodium (137-145) mmol/L Potassium (3.5-5.1) mmol/L Chloride (98-107) mmol/L Carbon Dioxide (22-30) mmol/L Anion Gap mmol/L BUN (9-20) mg/dL Creatinine (0.66-1.25) mg/dL Est GFR (CKD-EPI)AfAm (>60 ml/min/1.73 sqM) Est GFR (CKD-EPI)NonAf (>60 ml/min/1.73 sqM) Glucose (74-99) mg/dL Plasma Lactic Acid Guru 1.4 (0.7-2.0) mmol/L Calcium (8.4-10.2) mg/dL Magnesium (1.6-2.3) mg/dL Total Bilirubin (0.2-1.3) mg/dL AST (17-59) U/L ALT (4-49) U/L Alkaline Phosphatase (38-126) U/L Troponin I <0.012 (0.000-0.034) ng/mL NT-Pro-B Natriuret Pep 101 pg/mL Total Protein (6.3-8.2) g/dL Albumin (3.5-5.0) g/dL Coronavirus (PCR) (Not Detectd) 09/15/20 Range/Units 20:10 WBC (3.8-10.6) k/uL RBC (4.30-5.90) m/uL Hgb (13.0-17.5) gm/dL Hct (39.0-53.0) % MCV (80.0-100.0) fL MCH (25.0-35.0) pg MCHC (31.0-37.0) g/dL RDW (11.5-15.5) % Plt Count (150-450) k/uL MPV Neutrophils % % Lymphocytes % % Monocytes % % Eosinophils % % Basophils % % Neutrophils # (1.3-7.7) k/uL Lymphocytes # (1.0-4.8) k/uL Monocytes # (0-1.0) k/uL Eosinophils # (0-0.7) k/uL Basophils # (0-0.2) k/uL PT (9.0-12.0) sec INR (<1.2) APTT (22.0-30.0) sec D-Dimer (<0.60) mg/L FEU Sodium (137-145) mmol/L Potassium (3.5-5.1) mmol/L Chloride (98-107) mmol/L Carbon Dioxide (22-30) mmol/L Anion Gap mmol/L BUN (9-20) mg/dL Creatinine (0.66-1.25) mg/dL Est GFR (CKD-EPI)AfAm (>60 ml/min/1.73 sqM) Est GFR (CKD-EPI)NonAf (>60 ml/min/1.73 sqM) Glucose (74-99) mg/dL Plasma Lactic Acid Guru (0.7-2.0) mmol/L Calcium (8.4-10.2) mg/dL Magnesium (1.6-2.3) mg/dL Total Bilirubin (0.2-1.3) mg/dL AST (17-59) U/L ALT (4-49) U/L Alkaline Phosphatase (38-126) U/L Troponin I (0.000-0.034) ng/mL NT-Pro-B Natriuret Pep pg/mL Total Protein (6.3-8.2) g/dL Albumin (3.5-5.0) g/dL Coronavirus (PCR) Detected A (Not Detectd) Disposition Clinical Impression: Dyspnea, Pneumonia, COVID-19 Disposition: ADMITTED IP TO THIS HOSP Condition: Stable Is patient prescribed a controlled substance at d/c from ED?: No Time of Disposition: 20:10 Decision to Admit Reason: Admit from EC Decision Date: 09/15/20 Decision Time: 20:10
[2020-09-15] MEDS: IPRATROPIUM-ALBUTEROL 3 ML NEB INHALATION SCH ×2 (22:01→23:28)
[2020-09-16] MEDS ORDERED: traZODone HCL 50 MG TAB PO STA (00:35)
[2020-09-16] MEDS: IPRATROPIUM-ALBUTEROL 3 ML NEB INHALATION SCH (02:31)
[2020-09-16] MEDS ORDERED: IPRATROPIUM-ALBUTEROL 3 ML NEB INHALATION PRN (02:32)
[2020-09-16] MEDS ORDERED: ALBUTEROL HFA INHALER INHALATION PRN (07:19)
[2020-09-16] MEDS ORDERED: IPRATROPIUM-ALBUTEROL 3 ML NEB INHALATION SCH (08:00)
[2020-09-16] MEDS: ALBUTEROL HFA INHALER INHALATION SCH ×4 (09:08→20:27)
[2020-09-16] MEDS: PANTOPRAZOLE 40 MG/10 ML VIAL IVP SCH (10:08)
[2020-09-16] MEDS: ENOXAPARIN 40 MG/0.4 ML SYRINGE SQ SCH (10:08)
[2020-09-16] MEDS: ATORVASTATIN 80 MG TAB PO SCH (10:09)
[2020-09-16] MEDS: ASCORBIC ACID 500 MG TAB PO SCH (10:09)
[2020-09-16] MEDS: FUROSEMIDE 20 MG TAB PO SCH (10:09)
[2020-09-16] MEDS: ZINC SULFATE 220 MG CAP PO SCH (10:09)
[2020-09-16] MEDS: buPROPion 75 MG TAB PO SCH (10:10)
[2020-09-16] MEDS ORDERED: REMDESIVIR 200 MG in SODIUM CHLORIDE 0.9% 250 ML IVPB ONE (13:00)
--- NOTE | 2020-09-16 18:34 | CONS ---
CONSULTATION PULMONARY/CRITICAL CARE CONSULTATION: 09/16/2020 REASON FOR CONSULTATION: Shortness of breath and COVID-19 pneumonitis. A 59-year-old male with obesity, asthma, prostate cancer, presents to the emergency department on 09/15/2020 at 5:26 pm complaining that his asthma is out of control. He was apparently having significant wheezing and shortness of breath. The patient states that it has been going on for about a day or 2 prior to admission. In addition, the patient had a bit of a cough. No phlegm production. He did have some chills without fever. He also has some muscle aches and joint aches. Just not feeling well. Because he was not really improving on his rescue inhaler, he decided to come to the emergency room to be evaluated. He was tested for coronavirus. He did test positive. He was admitted to the hospital. Currently, he is feeling a bit better. He is on a couple liters of nasal O2. Not receiving any IV fluids. He denies any chest pain or chest discomfort. Denies any GI complaints. Denies any nausea, vomiting, diarrhea, or abdominal pain. He also denies any genitourinary complaints. He goes to the OR in [place]. HOME MEDICATIONS: Include Lipitor, Lasix, potassium, and Wellbutrin. ALLERGIES: INCLUDE ADHESIVE TAPE. MEDICAL HISTORY: Chronic bronchial asthma which apparently is relatively mild and managed with just a rescue inhaler, acid reflux disease, hyperlipidemia, pneumonia, and prostate cancer. He also has a history of peripheral edema, asbestos exposure, trigger finger, among other minor medical issues. SURGICAL HISTORY: Includes a previous appendectomy and prostatectomy for prostate cancer. He has also had wrist and hand surgery from trauma, left rotator cuff surgery, and some other procedures. SOCIAL HISTORY: Negative for tobacco use. Denies any alcohol use or illicit drug use. FAMILY HISTORY: Positive for father with essential hypertension and CHF and a mother with depression. REVIEW OF SYSTEMS: CONSTITUTIONAL: Weakness, fatigue, muscle aches, joint aches, chills without fever. NEUROLOGIC: Negative. HEENT: Negative. CARDIOVASCULAR: Negative. PULMONARY: Shortness of breath, chest tightness, cough, wheezing, chest congestion. GI: Negative. : Negative. RHEUMATOLOGIC: Negative. IMMUNOLOGIC: Negative. ENDOCRINOLOGIC: Negative. DERMATOLOGIC: Negative. PHYSICAL EXAMINATION: VITAL SIGNS: Current vital signs are reviewed. His temperature is 97.8, T-max is 99.1, heart rate 95, respiratory rate 22, blood pressure 153/84, mean is 107, 2 L saturation is 94%. He appears in no acute distress. He does have a very congested wet cough. HEENT: Examination is grossly unremarkable. Nasal O2 noted. NECK: Supple, full range of motion. No adenopathy. Neck veins are flat. CARDIOVASCULAR: Examination reveals regular rhythm and rate. Heart rate 82 beats per minute. S1, S2 normal. No S3, S4, or murmur. LUNGS: Reveal coarse rhonchi. There are some bilateral crackles. No wheezes. ABDOMEN: Soft. Bowel sounds are heard. EXTREMITIES are intact. No cyanosis, clubbing, or edema. SKIN without rash. NEUROLOGIC: Examination is brief but nonfocal. LABS: Reviewed. His COVID testing was positive. White count 15. Hemoglobin, hematocrit and platelet count all normal. PT/INR and PTT normal. D-dimer 0.97. Sodium 133, potassium 4.4, chloride 100, CO2 26, anion gap is 7. BUN and creatinine were 17 and 0.88. COVID testing was positive. The rest of the CMP was normal. Microbiology is negative. Chest x-ray shows patchy bilateral infiltrates. His CT scan shows patchy ground-glass opacities consistent with COVID-19 pneumonitis. Current medications are reviewed. The patient is on an albuterol inhaler, vitamin C, Lipitor, Wellbutrin, Lovenox, Lasix, Protonix, Remdesivir, zinc, and trazodone. ASSESSMENT: 1. COVID-19 pneumonitis/pneumonia, with mild to moderate hypoxemic respiratory failure. 2. History of asthma, currently active. 3. History of prostate cancer, status post prostatectomy. 4. Obesity. 5. Lifelong nonsmoker. 6. Hyperlipidemia. 7. History of pneumonia. 8. History of gastroesophageal reflux disease. 9. History of asbestos exposure while in the . PLAN: Currently, the patient is on appropriate medications. We will continue to follow. The patient should have a chest x-ray every 2 or 3 days. Inflammatory markers can be done every 2 or 3 days. The patient is on Remdesivir. He should get 200 mg on day 1, 100 mg day 2, 3, 4 and 5. The Remdesivir should be given IV. No additional recommendations are made. Prognosis is guarded. MMODL / IJN: [id number] /
[2020-09-16] MEDS: MELATONIN 5 MG TABLET PO SCH (21:15)
--- NOTE | 2020-09-16 21:38 | P.HPIM ---
History of Present Illness This is a pleasant 59 years old male with multiple medical problems as below including hyperlipidemia, GERD, asthma, history of prostate cancer, PTSD and history of asthma asbestos exposure. He follows at the [facility]. He presents because of dyspnea and generalized weakness and muscle pain. No coughing or chest pain. Patient had persistent dyspnea despite using his inhalers No abdominal pain or fever, no diarrhea or change in bowel habits. No dysuria. No headache or weakness Vitals are unremarkable and patient is afebrile. He is currently saturating 92% on room air Admission labs showing leukocytosis of 15 K, d-dimer was elevated at 0.97, BMP and liver enzymes are unremarkable. Covid test is positive EKG showing sinus tachycardia at [address]-T changes CTA of the chest, Groundglass pulmonary interstitial pneumonia remained no evidence of pulmonary embolism Was given 1 dose of Solu-Medrol and 1 dose of Zithromax and ceftriaxone Review of Systems CONSTITUTIONAL: No fever, no malaise, no fatigue. HEENT: No recent visual problems or hearing problems. Denied any sore throat. CARDIOVASCULAR: No orthopnea, PND, no palpitations, no syncope. PULMONARY: No chest wall tenderness, no hemoptysis. GASTROINTESTINAL: No diarrhea, no nausea, no vomiting, no abdominal pain. Normoactive bowel sounds. NEUROLOGICAL: No headaches, no weakness, no numbness. HEMATOLOGICAL: Denies any bleeding or petechiae. GENITOURINARY: Denies any burning micturition, frequency, or urgency. MUSCULOSKELETAL/RHEUMATOLOGICAL: Denies any joint pain, swelling, or any muscle pain. ENDOCRINE: Denies any polyuria or polydipsia. Past Medical History Past Medical History: Asthma, Cancer, GERD/Reflux, Hyperlipidemia, Pneumonia, Prostate Disorder Additional Past Medical History / Comment(s): peripheral edema. 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 History of Any Multi-Drug Resistant Organisms: None Reported Date of last positivie culture/infection: 10/01/17 MDRO Source:: incision Past Surgical History: Appendectomy, Prostate Surgery Additional Past Surgical History / Comment(s): as youth fell on broken glass jar and cut tendons lt writs-had sx to repair.left wrist carpal tunnel release, , left shoulder rotator reconstruction and has a pin in place, cystectomy tailbone, open abdominal surgery to remove prsotate Past Anesthesia/Blood Transfusion Reactions: No Reported Reaction Past Psychological History: PTSD Smoking Status: Never smoker Past Alcohol Use History: None Reported Past Drug Use History: None Reported - Past Family History Father Family Medical History: Congestive Heart Failure (CHF), Hypertension Mother Additional Family Medical History / Comment(s): depression Medications and Allergies Home Medications Medication Instructions Recorded Confirmed Type Atorvastatin [Lipitor] 80 mg PO DAILY 09/15/20 09/15/20 History Furosemide [Lasix] 20 mg PO DAILY 09/15/20 09/15/20 History Potassium Chloride ER [K-Dur 10] 10 meq PO DAILY 09/15/20 09/15/20 History buPROPion [Wellbutrin] 150 mg PO DAILY 09/15/20 09/15/20 History Allergies Allergy/AdvReac Type Severity Reaction Status Date / Time adhesive tape Allergy Rash/Hives Verified 09/15/20 20:13 Physical Exam Vitals: Vital Signs Temp Pulse Resp BP Pulse Ox 09/16/20 06:15 82 22 146/76 94 L 09/16/20 00:00 95 20 150/83 95 09/15/20 23:40 94 18 09/15/20 23:29 91 18 09/15/20 19:30 102 H 20 134/88 93 L 09/15/20 19:10 83 20 09/15/20 18:57 82 20 09/15/20 18:39 105 H 22 146/77 91 L 09/15/20 18:27 84 20 09/15/20 18:14 82 20 09/15/20 17:39 99.1 F 106 H 20 156/79 94 L Intake and Output 09/15/20 09/16/20 09/16/20 22:59 06:59 14:59 Other: Weight 158.304 kg GENERAL: The patient is alert and oriented x3, not in any acute distress. Well developed, well nourished. HEENT: Pupils are round and equally reacting to light. EOMI. No scleral icterus. No conjunctival pallor. Normocephalic, atraumatic. No pharyngeal erythema. No thyromegaly. CARDIOVASCULAR: S1 and S2 present. No murmurs, rubs, or gallops. -PULMONARY: Chest is clear to auscultation, no wheezing or crackles. Decreased breath sounds on both sides ABDOMEN: Soft, nontender, nondistended, normoactive bowel sounds. No palpable organomegaly. MUSCULOSKELETAL: No joint swelling or deformity. EXTREMITIES: No cyanosis, clubbing, or pedal edema. NEUROLOGICAL: Gross neurological examination did not reveal any focal deficits. SKIN: No rashes. No petechiae Results CBC & Chem 7: 09/15/20 17:55 09/15/20 17:55 Labs: Abnormal Lab Results - Last 24 Hours (Table) 09/15/20 09/15/20 09/15/20 Range/Units 17:55 17:55 17:55 WBC 15.0 H (3.8-10.6) k/uL Neutrophils # 12.2 H (1.3-7.7) k/uL Lymphocytes # 0.9 L (1.0-4.8) k/uL Monocytes # 1.2 H (0-1.0) k/uL Basophils # 0.3 H (0-0.2) k/uL D-Dimer 0.97 H (<0.60) mg/L FEU Sodium 133 L (137-145) mmol/L Glucose 166 H (74-99) mg/dL Total Bilirubin 1.6 H (0.2-1.3) mg/dL Coronavirus (PCR) (Not Detectd) 09/15/20 Range/Units 20:10 WBC (3.8-10.6) k/uL Neutrophils # (1.3-7.7) k/uL Lymphocytes # (1.0-4.8) k/uL Monocytes # (0-1.0) k/uL Basophils # (0-0.2) k/uL D-Dimer (<0.60) mg/L FEU Sodium (137-145) mmol/L Glucose (74-99) mg/dL Total Bilirubin (0.2-1.3) mg/dL Coronavirus (PCR) Detected A (Not Detectd) Assessment and Plan Assessment: Bilateral Covid pneumonia Increase inflammatory markers secondary to above Hyperlipidemia History of GERD History of asthma, not an active issue History of prostate cancer PTSD History of asbestosis exposure Plan: This is a pleasant 59 years old male who presents because of Covid pneumonia. Continue with a sulfate, ascorbic acid and Lovenox. Consult pulmonary service Labs and medication were reviewed.. Continue same treatment. Continue with symptomatic treatment. Resume home medication. Monitor lytes and vitals. DVT and GI prophylaxis. Further recommendations depends on the clinical course of the patient DVT prophylaxis: Subcutaneous Lovenox GI Prophylaxis: Ppi Prognosis is guarded
[2020-09-16] MEDS: ACETAMINOPHEN TAB 325 MG TAB PO PRN (22:17)
[2020-09-17] MEDS: traZODone HCL 50 MG TAB PO PRN ×2 (00:07→21:39)
[2020-09-17] MEDS: ALBUTEROL HFA INHALER INHALATION SCH ×4 (08:53→22:44)
[2020-09-17] MEDS: ASCORBIC ACID 500 MG TAB PO SCH (09:52)
[2020-09-17] MEDS: ATORVASTATIN 80 MG TAB PO SCH (09:57)
[2020-09-17] MEDS: buPROPion 75 MG TAB PO SCH (09:58)
[2020-09-17] MEDS: ZINC SULFATE 220 MG CAP PO SCH (09:58)
[2020-09-17] MEDS: FUROSEMIDE 20 MG TAB PO SCH (09:58)
[2020-09-17] MEDS: FAMOTIDINE 20 MG TAB PO SCH (09:58)
[2020-09-17] MEDS: ENOXAPARIN 40 MG/0.4 ML SYRINGE SQ SCH (09:58)
[2020-09-17] MEDS: dexAMETHasone 2 MG TAB PO SCH (09:58)
[2020-09-17] MEDS: CHOLECALCIFEROL 400 UNIT TAB PO SCH (09:59)
[2020-09-17] MEDS: PANTOPRAZOLE 40 MG/10 ML VIAL IVP SCH (09:59)
[2020-09-17] MEDS: guaiFENesin-Coden 100-10MG/5ML 10 ML CUP PO SCH ×2 (12:46→20:19)
[2020-09-17] MEDS: REMDESIVIR 100 MG in SODIUM CHLORIDE 0.9% 250 ML IVPB SCH (12:46)
--- NOTE | 2020-09-17 14:33 | P.PN ---
Subjective Progress Note Date: 09/17/20 Principal diagnosis: CoVID 19 pneumonitis Patient is seen today 09/17/2020 in follow-up on the regular medical floor. Remains awake and alert in no acute distress. He tested positive on 09/15/2020. He was initiated on Remdesivir. He is doing a bit better today compared to . He did have a fever of 102 last evening. Currently afebrile. Hemodynamically stable. Maintaining O2 saturation in the low 90s on 3 L/m per nasal cannula. He remains on Lovenox, dexamethasone, vitamin C, vitamin D, Pepcid, melatonin, zinc. Objective - Vital Signs Vital signs: Vital Signs Temp 98.1 F 09/17/20 11:00 Pulse 89 09/17/20 11:00 Resp 24 09/17/20 11:00 BP 149/65 09/17/20 11:00 Pulse Ox 91 L 09/17/20 11:00 Intake & Output 09/16/20 09/17/20 09/17/20 18:59 06:59 18:59 Intake Total 360 1640 Balance 360 1640 Weight 158.304 kg Intake: Intake, IV Titration 250 Amount Remdesivir 100 mg In 250 Sodium Chloride 0.9% 250 ml @ 250 mls/hr IVPB Q24H [facility] Rx#:[id number] Oral 360 1390 Other: Voiding Method Toilet Toilet # Voids 2 4 - Exam GENERAL EXAM: Alert, active, pleasant 59-year-old gentleman, on 3 L nasal cannula, comfortable in no apparent distress. HEAD: Normocephalic. EYES: Normal reaction of pupils, equal size. NOSE: Clear with pink turbinates. THROAT: No erythema or exudates. NECK: No masses, no JVD. CHEST: No chest wall deformity. LUNGS: Equal air entry with bilateral scattered rhonchi. CVS: S1 and S2 normal with no audible murmur, regular rhythm. ABDOMEN: No hepatosplenomegaly, normal bowel sounds, no guarding or rigidity. SPINE: No scoliosis or deformity SKIN: No rashes CENTRAL NERVOUS SYSTEM: No focal deficits, tone is normal in all 4 extremities. EXTREMITIES: There is no peripheral edema. No clubbing, no cyanosis. Peripheral pulses are intact. - Labs CBC & Chem 7: 09/15/20 17:55 09/15/20 17:55 Labs: Microbiology - Last 24 Hours (Table) 09/15/20 20:10 Blood Culture - Preliminary Blood No Growth after 24 hours Assessment and Plan Assessment: 1 Acute hypoxic respiratory failure secondary to acute CoVID 19 pneumonitis 2 History of asthma, currently inactive secondary to above 3 History of prostate cancer status post prostatectomy 4 Obesity 5 Lifelong nonsmoker 6 Hyperlipidemia 7 History of gastric esophageal reflux disease 8 History of asbestos 6 exposure while in the Plan: The patient was seen and evaluated by Dr. Dr. Ocampo Continue Remdesivir, Lovenox, Decadron Continue vitamin C, vitamin D, melatonin, Pepcid, zinc Repeat chest x-ray in a.m. Repeat inflammatory markers and d-dimer in a.m. We'll continue to follow I, the cosigning physician, performed a history & physical examination of the patient. Lungs sounds with few scattered rhonchi. Maintaining good O2 saturati ons in the 90s on 3 L/m per nasal cannula. I discussed the assessment and plan of care with my nurse practitioner, Pauly Grayson. I attest to the above note as dictated by her.
--- NOTE | 2020-09-17 14:37 | CDI ---
Documentation Clarification Form Date: 09/17/2020 02:28:22 PM From: Kendy Adam CCS, CCDS Admit Date: 09/15/2020 08:11:00 PM Patient Name: Marlon Shepherd Visit Number: [id number] Discharge Date: ATTENTION: The Clinical Documentation Specialists (CDI) and [facility] Coding Staff appreciate your assistance in clarifying documentation. Please respond to the clarification below the line at the bottom and electronically sign. The CDI & [facility] Coding staff will review the response and follow-up if needed. Please note: Queries are made part of the Legal Health Record. If you have any questions, please contact the author of this message via ITS. Dr. Marlon Ocampo: Per the 09/16 Pulmonary Consult: "COVID 19 pneumonitis/pneumonia, with mild to moderate hypoxemic respiratory failure." History/Risk Factors: Asthma nos, Obesity, BMI >45, Hyperlipidemia, Previous Pneumonia, Prostate Cancer status post Prostatectomy, GERD & exposure to Asbestos in the . Tobacco use: Non-smoker. Home oxygen: No Clinical Indicators: Presented to the ED on 09/15 with SOB. Patient thought he was having an asthma attack. Diagnosed with COVID 19 Pneumonia. Vital signs 09/15: T 99.1, P 106^, R 20, BP 156/79, PO 94 RA - 93 2Lnc. 09/17 VS: R 24 (sob, cough), BP 149/65, PO 91 3Lnc Treatment: O2 2-3Lnc, INH Ventolin, IV Solumedrol, INH Duoneb: Albuterol/Ipratropium, IV Azithromycin, IV Rocephin, Vit C, Lovenox sq, po Lasix, Orazinc, IV Remdesivir, Vit D3, Hexadrol. In your professional opinion, can you please clarify if these findings signify one of the following conditions? Acute Respiratory Failure Acute on Chronic Respiratory Failure Chronic Respiratory Failure Other Diagnosis, please specify Unable to determine (Last Query Form Revision: June 2019) ____acute respiratory failure MTDD
[2020-09-17] MEDS: MELATONIN 5 MG TABLET PO SCH (21:51)
--- NOTE | 2020-09-18 00:35 | P.PN ---
Subjective This is a pleasant 59 years old male with multiple medical problems as below including hyperlipidemia, GERD, asthma, history of prostate cancer, PTSD and history of asthma asbestos exposure. He follows at the [facility]. He presents because of dyspnea and generalized weakness and muscle pain. No coughing or chest pain. Patient had persistent dyspnea despite using his inhalers No abdominal pain or fever, no diarrhea or change in bowel habits. No dysuria. No headache or weakness Vitals are unremarkable and patient is afebrile. He is currently saturating 92% on room air Admission labs showing leukocytosis of 15 K, d-dimer was elevated at 0.97, BMP and liver enzymes are unremarkable. Covid test is positive EKG showing sinus tachycardia at [address]-T changes CTA of the chest, Groundglass pulmonary interstitial pneumonia remained no evidence of pulmonary embolism Was given 1 dose of Solu-Medrol and 1 dose of Zithromax and ceftriaxone 09/17/2020 Patient in mild respiratory distress with significant coughing asking for something to help him, Robitussin ac is been added. He is on 2.5-3 L/m oxygen via nasal cannula Continue with dexamethasone and Lovenox and remdesivir Follow-up chest x-ray and inflammatory markers tomorrow Review of Systems CONSTITUTIONAL: No fever, no malaise, no fatigue. HEENT: No recent visual problems or hearing problems. Denied any sore throat. CARDIOVASCULAR: No orthopnea, PND, no palpitations, no syncope. PULMONARY: No chest wall tenderness, no hemoptysis. GASTROINTESTINAL: No diarrhea, no nausea, no vomiting, no abdominal pain. Normoactive bowel sounds. NEUROLOGICAL: No headaches, no weakness, no numbness. Active Medications Generic Name Dose Route Start Last Admin Trade Name Freq PRN Reason Stop Dose Admin Acetaminophen 650 mg 09/16/20 22:07 09/16/20 22:17 Acetaminophen Tab 325 Mg Tab PO 650 mg Q4HR PRN Administration Fever and/ or Pain Albuterol Sulfate 2 puff 09/16/20 07:19 Albuterol Hfa Inhaler INHALATION RT-QID PRN Shortness Of Breath Or Wheezing Albuterol Sulfate 2 puff 09/16/20 08:00 09/17/20 22:44 Albuterol Hfa Inhaler INHALATION 2 puff RT-QID [place] Administration Ascorbic Acid 1,000 mg 09/16/20 09:00 09/17/20 09:52 Ascorbic Acid 500 Mg Tab PO 1,000 mg DAILY [place] Administration Atorvastatin Calcium 80 mg 09/16/20 09:00 09/17/20 09:57 Atorvastatin 80 Mg Tab PO 80 mg DAILY [place] Administration Bupropion HCl 150 mg 09/16/20 09:00 09/17/20 09:58 Bupropion 75 Mg Tab PO 150 mg DAILY [place] Administration Cholecalciferol 400 unit 09/17/20 09:00 09/17/20 09:59 Cholecalciferol 400 Unit Tab PO 400 unit DAILY [place] Administration Dexamethasone 6 mg 09/17/20 09:00 09/17/20 09:58 Dexamethasone 2 Mg Tab PO 6 mg DAILY [place] Administration Enoxaparin Sodium 40 mg 09/16/20 09:00 09/17/20 09:58 Enoxaparin 40 Mg/0.4 Ml Syringe SQ 40 mg DAILY [place] Administration Famotidine 40 mg 09/17/20 09:00 09/17/20 09:58 Famotidine 20 Mg Tab PO 40 mg DAILY [place] Administration Furosemide 20 mg 09/16/20 09:00 09/17/20 09:58 Furosemide 20 Mg Tab PO 20 mg DAILY [place] Administration Guaifenesin/Codeine Phosphate 10 ml 09/17/20 13:00 09/17/20 20:19 Guaifenesin-Coden 100-10mg/5ml 10 Ml Cup PO 10 ml Q6H [place] Administration Remdesivir 100 mg/ Sodium 250 mls @ 250 mls/hr 09/17/20 13:00 09/17/20 12:46 Chloride IVPB 09/20/20 13:59 250 mls/hr Q24H [place] Administration Melatonin 5 mg 09/16/20 21:00 09/17/20 21:51 Melatonin 5 Mg Tablet PO Not Given HS [place] Trazodone HCl 50 mg 09/16/20 23:38 09/17/20 21:39 Trazodone Hcl 50 Mg Tab PO 50 mg HS PRN Administration Insomnia Zinc Sulfate 220 mg 09/16/20 09:00 09/17/20 09:58 Zinc Sulfate 220 Mg Cap PO 220 mg DAILY [place] Administration Objective - Vital Signs Vital signs: Vital Signs Temp 98.1 F 09/17/20 11:00 Pulse 89 09/17/20 11:00 Resp 24 09/17/20 11:00 BP 149/65 09/17/20 11:00 Pulse Ox 91 L 09/17/20 11:00 Intake & Output 09/16/20 09/17/20 09/17/20 18:59 06:59 18:59 Intake Total 360 1640 Balance 360 1640 Weight 158.304 kg Intake: Intake, IV Titration 250 Amount Remdesivir 100 mg In 250 Sodium Chloride 0.9% 250 ml @ 250 mls/hr IVPB Q24H [facility] Rx#:[id number] Oral 360 1390 Other: Voiding Method Toilet Toilet # Voids 2 4 - Exam GENERAL: The patient is alert and oriented x3, not in any acute distress. Well developed, well nourished. HEENT: Pupils are round and equally reacting to light. EOMI. No scleral icterus. No conjunctival pallor. Normocephalic, atraumatic. No pharyngeal erythema. No thyromegaly. CARDIOVASCULAR: S1 and S2 present. No murmurs, rubs, or gallops. PULMONARY: Chest is clear to auscultation, no wheezing or crackles. ABDOMEN: Soft, nontender, nondistended, normoactive bowel sounds. No palpable organomegaly. MUSCULOSKELETAL: No joint swelling or deformity. EXTREMITIES: No cyanosis, clubbing, or pedal edema. NEUROLOGICAL: Gross neurological examination did not reveal any focal deficits. SKIN: No rashes. no petechiae. - Labs CBC & Chem 7: 09/15/20 17:55 09/15/20 17:55 Labs: Microbiology - Last 24 Hours (Table) 09/15/20 20:10 Blood Culture - Preliminary Blood No Growth after 24 hours Assessment and Plan Assessment: Bilateral Covid pneumonia Increase inflammatory markers secondary to above Hyperlipidemia History of GERD History of asthma, not an active issue History of prostate cancer PTSD History of asbestosis exposure Plan: This is a pleasant 59 years old male who presents because of Covid pneumonia. Continue with a sulfate, ascorbic acid and Lovenox. Consult pulmonary service Labs and medication were reviewed.. Continue same treatment. Continue with symptomatic treatment. Resume home medication. Monitor lytes and vitals. DVT and GI prophylaxis. Further recommendations depends on the clinical course of the patient DVT prophylaxis: Subcutaneous Lovenox GI Prophylaxis: Ppi Prognosis is guarded
[2020-09-18] MEDS: guaiFENesin-Coden 100-10MG/5ML 10 ML CUP PO SCH ×4 (05:15→21:45)
[2020-09-18] MEDS: FAMOTIDINE 20 MG TAB PO SCH (08:27)
[2020-09-18] MEDS: dexAMETHasone 2 MG TAB PO SCH (08:27)
[2020-09-18] MEDS: FUROSEMIDE 20 MG TAB PO SCH (08:27)
[2020-09-18] MEDS: ENOXAPARIN 40 MG/0.4 ML SYRINGE SQ SCH (08:27)
[2020-09-18] MEDS: buPROPion 75 MG TAB PO SCH (08:28)
[2020-09-18] MEDS: ASCORBIC ACID 500 MG TAB PO SCH (08:28)
[2020-09-18] MEDS: CHOLECALCIFEROL 400 UNIT TAB PO SCH (08:28)
[2020-09-18] MEDS: ATORVASTATIN 80 MG TAB PO SCH (08:28)
[2020-09-18] MEDS: ZINC SULFATE 220 MG CAP PO SCH (08:28)
--- NOTE | 2020-09-18 09:18 | XR ---
EXAMINATION TYPE: XR chest 1V DATE OF EXAM: 09/18/2020 COMPARISON: Prior chest x-ray and chest CT 09/15/2020 HISTORY: Covid pneumonia TECHNIQUE: Single frontal view of the chest is obtained. FINDINGS: Bilateral airspace disease is present. Heart size may be accentuated. No pneumothorax or p leural effusion. IMPRESSION: Findings consistent with patient's history of pneumonia, progression compared to prior e xam.
[2020-09-18] MEDS: ALBUTEROL HFA INHALER INHALATION SCH ×4 (09:37→20:09)
[2020-09-18] MEDS: REMDESIVIR 100 MG in SODIUM CHLORIDE 0.9% 250 ML IVPB SCH (12:53)
--- NOTE | 2020-09-18 14:11 | P.PN ---
Subjective Progress Note Date: 09/18/20 Principal diagnosis: CoVID 19 pneumonitis Patient is seen today 09/17/2020 in follow-up on the regular medical floor. Remains awake and alert in no acute distress. He tested positive on 09/15/2020. He was initiated on Remdesivir. He is doing a bit better today compared to . He did have a fever of 102 last evening. Currently afebrile. Hemodynamically stable. Maintaining O2 saturation in the low 90s on 3 L/m per nasal cannula. He remains on Lovenox, dexamethasone, vitamin C, vitamin D, Pepcid, melatonin, zinc. Patient is seen today 09/18/2020 in follow-up on the regular medical floor. He is currently resting comfortably in bed. Awake and alert in no acute distress. Maintaining O2 saturations in the 90s on 5 L nasal cannula. Chest x-ray continues to show bilateral airspace disease consistent with pneumonia. D-dimer 1.29. He remains on Lovenox, dexamethasone, vitamin C, vitamin D, Pepcid, melatonin, zinc. This is day #3 of Remdesivir. Objective - Vital Signs Vital signs: Vital Signs Temp 98.5 F 09/18/20 10:18 Pulse 65 09/18/20 10:18 Resp 18 09/18/20 10:18 BP 137/76 09/18/20 10:18 Pulse Ox 92 L 09/18/20 10:18 Intake & Output 09/17/20 09/18/20 09/18/20 18:59 06:59 18:59 Intake Total 240 Balance 240 Intake: Oral 240 Other: Voiding Method Toilet # Voids 4 - Exam GENERAL EXAM: Alert, active, pleasant 59-year-old gentleman, on 5 L nasal cannula, comfortable in no apparent distress. HEAD: Normocephalic. EYES: Normal reaction of pupils, equal size. NOSE: Clear with pink turbinates. THROAT: No erythema or exudates. NECK: No masses, no JVD. CHEST: No chest wall deformity. LUNGS: Equal air entry with bilateral scattered rhonchi. CVS: S1 and S2 normal with no audible murmur, regular rhythm. ABDOMEN: No hepatosplenomegaly, normal bowel sounds, no guarding or rigidity. SPINE: No scoliosis or deformity SKIN: No rashes CENTRAL NERVOUS SYSTEM: No focal deficits, tone is normal in all 4 extremities. EXTREMITIES: There is no peripheral edema. No clubbing, no cyanosis. Octavia pheral pulses are intact. - Labs CBC & Chem 7: 09/15/20 17:55 09/15/20 17:55 Labs: Abnormal Lab Results - Last 24 Hours (Table) 09/17/20 09/18/20 Range/Units 19:14 07:51 D-Dimer 1.29 H (<0.60) mg/L FEU Lactate Dehydrogenase 309 H (120-246) U/L Microbiology - Last 24 Hours (Table) 09/17/20 00:20 Blood Culture - Preliminary Blood No Growth after 24 hours 09/15/20 20:10 Blood Culture - Preliminary Blood No Growth after 48 hours Assessment and Plan Assessment: 1 Acute hypoxic respiratory failure secondary to acute CoVID 19 pneumonitis 2 History of asthma, currently inactive secondary to above 3 History of prostate cancer status post prostatectomy 4 Obesity 5 Lifelong nonsmoker 6 Hyperlipidemia 7 History of gastric esophageal reflux disease 8 History of asbestos 6 exposure while in the Plan: The patient was seen and evaluated by Dr. Ocampo Chest x-ray and labs reviewed. Continue Remdesivir, Lovenox, Decadron Continue vitamin C, vitamin D, melatonin, Pepcid, zinc We'll continue to follow and make further recommendations based on his clinical status I, the cosigning physician, performed a history & physical examination of the patient. Lungs sounds with few scattered rhonchi. Maintaining good O2 saturations in the 90s on 5 L/m per nasal cannula. I discussed the assessment and plan of care with my nurse practitioner, Pauly Grayson. I attest to the above note as dictated by her.
[2020-09-18] MEDS: traZODone HCL 50 MG TAB PO PRN (21:45)
[2020-09-18] MEDS: MELATONIN 5 MG TABLET PO SCH (21:45)
[2020-09-19] MEDS: guaiFENesin-Coden 100-10MG/5ML 10 ML CUP PO SCH ×4 (01:00→20:00)
[2020-09-19] MEDS: ACETAMINOPHEN TAB 325 MG TAB PO PRN (05:33)
[2020-09-19 09:27] LABS: Basophils # (A) 0.1 k/uL (0-0.2); Basophils % (A) 0 %; Eosinophils # (A) 0.2 k/uL (0-0.7); Eosinophils % (A) 1 %; HGB 14.9 gm/dL (13.0-17.5); Lymphocytes # (A) 0.7 k/uL (1.0-4.8); Lymphocytes % (A) 4 %; MCH 29.5 pg (25.0-35.0); MCHC 32.4 g/dL (31.0-37.0); MCV 91.2 fL (80.0-100.0); Mean Platelet Volume 7.7; Monocytes # (A) 1.1 k/uL (0-1.0); Monocytes % (A) 6 %; Neutrophils # (A) 16.7 k/uL (1.3-7.7); Neutrophils % (A) 88 %; Platelet Count 351 k/uL (150-450); RBC 5.04 m/uL (4.30-5.90); RDW 13.5 % (11.5-15.5); WBC 19.1 k/uL (3.8-10.6)
[2020-09-19 09:38] LABS: African American GFR (CKD) >90 (>60 ml/min/1.73 sqM); Anion Gap 7 mmol/L; Blood Urea Nitrogen 23 mg/dL (9-20); C Reactive Protein 82.5 mg/L (<10.0); Calcium 8.9 mg/dL (8.4-10.2); Carbon Dioxide 26 mmol/L (22-30); Chloride 104 mmol/L (98-107); Glucose 216 mg/dL (74-99); LDH 834 U/L (313-618); Non-African American GFR(CKD) >90 (>60 ml/min/1.73 sqM); Potassium 4.3 mmol/L (3.5-5.1); Sodium 137 mmol/L (137-145)
[2020-09-19] MEDS: ALBUTEROL HFA INHALER INHALATION SCH ×4 (09:39→20:10)
[2020-09-19] MEDS: FAMOTIDINE 20 MG TAB PO SCH (09:45)
[2020-09-19] MEDS: dexAMETHasone 2 MG TAB PO SCH (09:45)
[2020-09-19] MEDS: ENOXAPARIN 40 MG/0.4 ML SYRINGE SQ SCH (09:46)
[2020-09-19] MEDS: CHOLECALCIFEROL 400 UNIT TAB PO SCH (09:46)
[2020-09-19] MEDS: FUROSEMIDE 20 MG TAB PO SCH (09:46)
[2020-09-19] MEDS: buPROPion 75 MG TAB PO SCH (09:46)
[2020-09-19] MEDS: ASCORBIC ACID 500 MG TAB PO SCH (09:46)
[2020-09-19] MEDS: ZINC SULFATE 220 MG CAP PO SCH (09:46)
[2020-09-19] MEDS: ATORVASTATIN 80 MG TAB PO SCH (09:46)
--- NOTE | 2020-09-19 10:58 | P.PN ---
Subjective This is a pleasant 59 years old male with multiple medical problems as below including hyperlipidemia, GERD, asthma, history of prostate cancer, PTSD and history of asthma asbestos exposure. He follows at the [facility]. He presents because of dyspnea and generalized weakness and muscle pain. No coughing or chest pain. Patient had persistent dyspnea despite using his inhalers No abdominal pain or fever, no diarrhea or change in bowel habits. No dysuria. No headache or weakness Vitals are unremarkable and patient is afebrile. He is currently saturating 92% on room air Admission labs showing leukocytosis of 15 K, d-dimer was elevated at 0.97, BMP and liver enzymes are unremarkable. Covid test is positive EKG showing sinus tachycardia at [address]-T changes CTA of the chest, [place] pulmonary interstitial pneumonia remained no evidence of pulmonary embolism Was given 1 dose of Solu-Medrol and 1 dose of Zithromax and ceftriaxone 09/17/2020 Patient in mild respiratory distress with significant coughing asking for something to help him, Robitussin ac is been added. He is on 2.5-3 L/m oxygen via nasal cannula Continue with dexamethasone and Lovenox and remdesivir Follow-up chest x-ray and inflammatory markers tomorrow 09/18/2020 Patient is breathing easily, patient is still coughing and not completely resolved. No chest pain. Saturating in the 90s with oxygen 3-5 L/m. Pulmonary team on the case and patient is found closely by Dr. Ocampo, Who ordered inflammatory markers and chest x-ray: Findings consistent with patient's history of pneumonia, progression compared to prior exam .Continue w ith treatment as per recommendation by pulmonary team, is currently on dexamethasone, Lovenox and remdesivir, also on vitamin C and zinc. Antibiotics were stopped by pulmonary team Review of Systems CONSTITUTIONAL: No fever, no malaise, no fatigue. HEENT: No recent visual problems or hearing problems. Denied any sore throat. CARDIOVASCULAR: No orthopnea, PND, no palpitations, no syncope. PULMONARY: No chest wall tenderness, no hemoptysis. GASTROINTESTINAL: No diarrhea, no nausea, no vomiting, no abdominal pain. Normoactive bowel sounds. NEUROLOGICAL: No headaches, no weakness, no numbness. Active Medications Generic Name Dose Route Start Last Admin Trade Name Freq PRN Reason Stop Dose Admin Acetaminophen 650 mg 09/16/20 22:07 09/16/20 22:17 Acetaminophen Tab 325 Mg Tab PO 650 mg Q4HR PRN Administration Fever and/ or Pain Albuterol Sulfate 2 puff 09/16/20 07:19 Albuterol Hfa Inhaler INHALATION RT-QID PRN Shortness Of Breath Or Wheezing Albuterol Sulfate 2 puff 09/16/20 08:00 09/17/20 22:44 Albuterol Hfa Inhaler INHALATION 2 puff RT-QID [place] Administration Ascorbic Acid 1,000 mg 09/16/20 09:00 09/17/20 09:52 Ascorbic Acid 500 Mg Tab PO 1,000 mg DAILY [place] Administration Atorvastatin Calcium 80 mg 09/16/20 09:00 09/17/20 09:57 Atorvastatin 80 Mg Tab PO 80 mg DAILY [place] Administration Bupropion HCl 150 mg 09/16/20 09:00 09/17/20 09:58 Bupropion 75 Mg Tab PO 150 mg DAILY [place] Administration Cholecalciferol 400 unit 09/17/20 09:00 09/17/20 09:59 Cholecalciferol 400 Unit Tab PO 400 unit DAILY [place] Administration Dexamethasone 6 mg 09/17/20 09:00 09/17/20 09:58 Dexamethasone 2 Mg Tab PO 6 mg DAILY [place] Administration Enoxaparin Sodium 40 mg 09/16/20 09:00 09/17/20 09:58 Enoxaparin 40 Mg/0.4 Ml Syringe SQ 40 mg DAILY [place] Administration Famotidine 40 mg 09/17/20 09:00 09/17/20 09:58 Famotidine 20 Mg Tab PO 40 mg DAILY [place] Administration Furosemide 20 mg 09/16/20 09:00 09/17/20 09:58 Furosemide 20 Mg Tab PO 20 mg DAILY [place] Administration Guaifenesin/Codeine Phosphate 10 ml 09/17/20 13:00 09/17/20 20:19 Guaifenesin-Coden 100-10mg/5ml 10 Ml Cup PO 10 ml Q6H [place] Administration Remdesivir 100 mg/ Sodium 250 mls @ 250 mls/hr 09/17/20 13:00 09/17/20 12:46 Chloride IVPB 09/20/20 13:59 250 mls/hr Q24H [place] Administration Melatonin 5 mg 09/16/20 21:00 09/17/20 21:51 Melatonin 5 Mg Tablet PO Not Given HS [place] Trazodone HCl 50 mg 09/16/20 23:38 09/17/20 21:39 Trazodone Hcl 50 Mg Tab PO 50 mg HS PRN Administration Insomnia Zinc Sulfate 220 mg 09/16/20 09:00 09/17/20 09:58 Zinc Sulfate 220 Mg Cap PO 220 mg DAILY [place] Administration Objective - Vital Signs Vital signs: Vital Signs Temp 98.5 F 09/18/20 10:18 Pulse 65 09/18/20 10:18 Resp 18 09/18/20 10:18 BP 137/76 09/18/20 10:18 Pulse Ox 92 L 09/18/20 10:18 Intake & Output 09/17/20 09/18/20 09/18/20 18:59 06:59 18:59 Intake Total 240 Balance 240 Intake: Oral 240 Other: Voiding Method Toilet # Voids 4 - Exam GENERAL: The patient is alert and oriented x3, not in any acute distress. Well developed, well nourished. HEENT: Pupils are round and equally reacting to light. EOMI. No scleral icterus. No conjunctival pallor. Normocephalic, atraumatic. No pharyngeal erythema. No thyromegaly. CARDIOVASCULAR: S1 and S2 present. No murmurs, rubs, or gallops. PULMONARY: Chest is clear to auscultation, no wheezing or crackles. ABDOMEN: Soft, nontender, nondistended, normoactive bowel sounds. No palpable organomegaly. MUSCULOSKELETAL: No joint swelling or deformity. EXTREMITIES: No cyanosis, clubbing, or pedal edema. NEUROLOGICAL: Gross neurological examination did not reveal any focal deficits. SKIN: No rashes. no petechiae. - Labs CBC & Chem 7: 09/19/20 08:52 09/19/20 08:52 Labs: Abnormal Lab Results - Last 24 Hours (Table) 09/17/20 09/18/20 Range/Units 19:14 07:51 D-Dimer 1.29 H (<0.60) mg/L FEU Lactate Dehydrogenase 309 H (120-246) U/L Microbiology - Last 24 Hours (Table) 09/17/20 00:20 Blood Culture - Preliminary Blood No Growth after 24 hours 09/15/20 20:10 Blood Culture - Preliminary Blood No Growth after 48 hours Assessment and Plan Assessment: Bilateral Covid pneumonia Increase inflammatory markers secondary to above Hyperlipidemia History of GERD History of asthma, not an active issue History of prostate cancer PTSD History of asbestosis exposure Plan: This is a pleasant 59 years old male who presents because of Covid pneumonia. Continue with zinc sulfate, ascorbic acid and Lovenox. and c/w remdesivir, Consult pulmonary service Labs and medication were reviewed.. Continue same treatment. Continue with symptomatic treatment. Resume home medication. Monitor lytes and vitals. DVT and GI prophylaxis. Further recommendations depends on the clinical course of the patient DVT prophylaxis: Subcutaneous Lovenox GI Prophylaxis: Ppi Prognosis is guarded
[2020-09-19] MEDS: REMDESIVIR 100 MG in SODIUM CHLORIDE 0.9% 250 ML IVPB SCH (13:24)
[2020-09-19] MEDS: BENZONATATE 100 MG CAP PO SCH ×3 (13:24→21:39)
--- NOTE | 2020-09-19 13:26 | P.PN ---
Subjective Progress Note Date: 09/19/20 Principal diagnosis: CoVID 19 pneumonitis Patient is seen today 09/17/2020 in follow-up on the regular medical floor. Remains awake and alert in no acute distress. He tested positive on 09/15/2020. He was initiated on Remdesivir. He is doing a bit better today compared to . He did have a fever of 102 last evening. Currently afebrile. Hemodynamically stable. Maintaining O2 saturation in the low 90s on 3 L/m per nasal cannula. He remains on Lovenox, dexamethasone, vitamin C, vitamin D, Pepcid, melatonin, zinc. Patient is seen today 09/18/2020 in follow-up on the regular medical floor. He is currently resting comfortably in bed. Awake and alert in no acute distress. Maintaining O2 saturations in the 90s on 5 L nasal cannula. Chest x-ray continues to show bilateral airspace disease consistent with pneumonia. D-dimer 1.29. He remains on Lovenox, dexamethasone, vitamin C, vitamin D, Pepcid, melatonin, zinc. This is day #3 of Remdesivir. The patient is seen today 09/19/2020 in follow-up on the regular medical floor. He is currently up ambulating in his room. Awake and alert in no acute distress. He continues to have a dry nonproductive cough. No on 15 L high flow nasal cannula to maintain O2 saturation in the 90s. Afebrile. White count 19.1. Hemoglobin 14.9. Lymphocytes 0.7. D-dimer 1.17. Sodium 137. Potassium is 4.3. Creatinine 0.83. LDH 834. C-reactive protein 82.5. This is day #4 of Remdesivir. He is continued on Lovenox my dexamethasone, vitamin supplements. Objective - Vital Signs Vital signs: Vital Signs Temp 98.3 F 09/19/20 11:28 Pulse 78 09/19/20 11:28 Resp 36 H 09/19/20 11:28 BP 118/74 09/19/20 11:28 Pulse Ox 94 L 09/19/20 11:28 Intake & Output 09/18/20 09/19/20 09/19/20 18:59 06:59 18:59 Intake Total 590 Output Total 450 Balance 590 -450 Intake: Oral 590 Output: Urine 450 Other: Voiding Method Urinal # Voids 1 2 - Exam GENERAL EXAM: Alert, obese, pleasant 59-year-old gentleman, on 15 L nasal cannula, comfortable in no apparent distress. HEAD: Normocephalic. EYES: Normal reaction of pupils, equal size. NOSE: Clear with pink turbinates. THROAT: No erythema or exudates. NECK: No masses, no JVD. CHEST: No chest wall deformity. LUNGS: Equal air entry with bilateral scattered rhonchi. CVS: S1 and S2 normal with no audible murmur, regular rhythm. ABDOMEN: No hepatosplenomegaly, normal bowel sounds, no guarding or rigidity. SPINE: No scoliosis or deformity SKIN: No rashes CENTRAL NERVOUS SYSTEM: No focal deficits, tone is normal in all 4 extremities. EXTREMITIES: There is no peripheral edema. No clubbing, no cyanosis. Peripheral pulses are intact. - Labs CBC & Chem 7: 09/19/20 08:52 09/19/20 08:52 Labs: Abnormal Lab Results - Last 24 Hours (Table) 09/18/20 09/19/20 09/19/20 Range/Units 07:51 08:52 08:52 WBC 19.1 H (3.8-10.6) k/uL Neutrophils # 16.7 H (1.3-7.7) k/uL Lymphocytes # 0.7 L (1.0-4.8) k/uL Monocytes # 1.1 H (0-1.0) k/uL D-Dimer 1.17 H (<0.60) mg/L FEU BUN (9-20) mg/dL Glucose (74-99) mg/dL Lactate Dehydrogenase (313-618) U/L C-Reactive Protein 18.3 H (0.0-0.8) mg/dL 09/19/20 Range/Units 08:52 WBC (3.8-10.6) k/uL Neutrophils # (1.3-7.7) k/uL Lymphocytes # (1.0-4.8) k/uL Monocytes # (0-1.0) k/uL D-Dimer (<0.60) mg/L FEU BUN 23 H (9-20) mg/dL Glucose 216 H (74-99) mg/dL Lactate Dehydrogenase 834 H (313-618) U/L C-Reactive Protein 82.5 H (0.0-0.8) mg/dL Microbiology - Last 24 Hours (Table) 09/17/20 00:20 Blood Culture - Preliminary Blood No Growth after 48 hours 09/15/20 20:10 Blood Culture - Preliminary Blood No Growth after 72 hours Assessment and Plan Assessment: 1 Acute hypoxic respiratory failure secondary to acute CoVID 19 pneumonitis, currently on 15 L high flow nasal cannula 2 History of asthma, currently inactive secondary to above 3 History of prostate cancer status post prostatectomy 4 Obesity 5 Lifelong nonsmoker 6 Hyperlipidemia 7 History of gastric esophageal reflux disease 8 History of asbestos 6 exposure while in the Plan: The patient was seen and evaluated by Dr. Ocampo Oxygen requirements have increased to 15 L high flow Administer convalescent plasma Increase Lovenox to twice daily Discontinue dexamethasone and add high-dose IV Solu-Medrol Continue Remdesivir Continue vitamin C, vitamin D, melatonin, Pepcid, zinc Repeat chest x-ray in a.m. We'll continue to follow and make further recommendations based on his clinical status I, the cosigning physician, performed a history & physical examination of the patient. Lungs sounds with few scattered rhonchi. Maintaining good O2 saturations in the 90s on 15 L/m per nasal cannula. I discussed the assessment and plan of care with my nurse practitioner, Pauly Grayson. I attest to the above note as dictated by her.
[2020-09-19] MEDS: methylPREDNISolone SOD SUCCI 125 MG/2 ML VIAL IV SCH ×2 (17:01→23:47)
[2020-09-19 18:28] LABS: Ferritin 512.3 ng/mL (22.0-322.0)
[2020-09-19] MEDS: MELATONIN 5 MG TABLET PO SCH (21:39)
[2020-09-19] MEDS: ENOXAPARIN 60 MG/0.6 ML SYRINGE SQ SCH (21:39)
[2020-09-20] MEDS: guaiFENesin-Coden 100-10MG/5ML 10 ML CUP PO SCH ×4 (02:30→19:45)
[2020-09-20] MEDS: methylPREDNISolone SOD SUCCI 125 MG/2 ML VIAL IV SCH ×3 (06:16→17:25)
[2020-09-20 07:25] LABS: Glucose,Whole Blood 169 mg/dL (75-99)
[2020-09-20 07:37] LABS: Basophils # (A) 0.1 k/uL (0-0.2); Basophils % (A) 0 %; Eosinophils # (A) 0.1 k/uL (0-0.7); Eosinophils % (A) 1 %; HCT 47.3 % (39.0-53.0); HGB 15.3 gm/dL (13.0-17.5); Lymphocytes # (A) 0.5 k/uL (1.0-4.8); Lymphocytes % (A) 3 %; MCH 29.3 pg (25.0-35.0); MCHC 32.3 g/dL (31.0-37.0); MCV 90.7 fL (80.0-100.0); Mean Platelet Volume 7.2; Monocytes # (A) 0.8 k/uL (0-1.0); Monocytes % (A) 5 %; Neutrophils # (A) 15.9 k/uL (1.3-7.7); Neutrophils % (A) 90 %; Platelet Count 361 k/uL (150-450); RBC 5.22 m/uL (4.30-5.90); RDW 13.4 % (11.5-15.5); WBC 17.6 k/uL (3.8-10.6)
[2020-09-20] MEDS: ATORVASTATIN 80 MG TAB PO SCH (07:54)
[2020-09-20] MEDS: ASCORBIC ACID 500 MG TAB PO SCH (07:54)
[2020-09-20] MEDS: CHOLECALCIFEROL 400 UNIT TAB PO SCH (07:55)
[2020-09-20] MEDS: ENOXAPARIN 60 MG/0.6 ML SYRINGE SQ SCH ×2 (07:55→22:43)
[2020-09-20] MEDS: BENZONATATE 100 MG CAP PO SCH ×3 (07:55→22:42)
[2020-09-20] MEDS: FUROSEMIDE 20 MG TAB PO SCH (07:56)
[2020-09-20] MEDS: FAMOTIDINE 20 MG TAB PO SCH (07:56)
[2020-09-20] MEDS: ZINC SULFATE 220 MG CAP PO SCH (07:56)
[2020-09-20] MEDS: buPROPion 75 MG TAB PO SCH (08:27)
--- NOTE | 2020-09-20 08:50 | XR ---
EXAMINATION TYPE: XR chest 1V portable DATE OF EXAM: 09/20/2020 Comparison: 09/18/2020 Clinical History: 59-year-old male CoVID pneumonia Findings: Left heart margin obscured by adjacent pleural parenchymal opacity. Left greater than right multifoca l airspace disease, extensive on the left may be minimally worsened as the left heart margin is now h arder to see. Impression: Left greater than right extensive airspace disease may be minimally worsened on the left.
[2020-09-20] MEDS: ALBUTEROL HFA INHALER INHALATION SCH ×4 (09:10→21:12)
[2020-09-20 10:57] LABS: Glucose,Whole Blood 184 mg/dL (75-99)
[2020-09-20 11:51] LABS: African American GFR (CKD) 114.1 (60.0-200.0); Calcium 8.9 mg/dL (8.7-10.3); Non-African American GFR(CKD) 98.5 (60.0-200.0); Potassium 4.5 mmol/L (3.5-5.5)
[2020-09-20] MEDS: REMDESIVIR 100 MG in SODIUM CHLORIDE 0.9% 250 ML IVPB SCH (12:53)
[2020-09-20] MEDS: ALPRAZolam 0.25 MG TAB PO PRN ×2 (13:35→22:42)
--- NOTE | 2020-09-20 14:07 | P.PN ---
Subjective Progress Note Date: 09/20/20 Principal diagnosis: CoVID 19 pneumonitis Patient is seen today 09/17/2020 in follow-up on the regular medical floor. Remains awake and alert in no acute distress. He tested positive on 09/15/2020. He was initiated on Remdesivir. He is doing a bit better today compared to . He did have a fever of 102 last evening. Currently afebrile. Hemodynamically stable. Maintaining O2 saturation in the low 90s on 3 L/m per nasal cannula. He remains on Lovenox, dexamethasone, vitamin C, vitamin D, Pepcid, melatonin, zinc. Patient is seen today 09/18/2020 in follow-up on the regular medical floor. He is currently resting comfortably in bed. Awake and alert in no acute distress. Maintaining O2 saturations in the 90s on 5 L nasal cannula. Chest x-ray continues to show bilateral airspace disease consistent with pneumonia. D-dimer 1.29. He remains on Lovenox, dexamethasone, vitamin C, vitamin D, Pepcid, melatonin, zinc. This is day #3 of Remdesivir. The patient is seen today 09/19/2020 in follow-up on the regular medical floor. He is currently up ambulating in his room. Awake and alert in no acute distress. He continues to have a dry nonproductive cough. No on 15 L high flow nasal cannula to maintain O2 saturation in the 90s. Afebrile. White count 19.1. Hemoglobin 14.9. Lymphocytes 0.7. D-dimer 1.17. Sodium 137. Potassium is 4.3. Creatinine 0.83. LDH 834. C-reactive protein 82.5. This is day #4 of Remdesivir. He is continued on Lovenox my dexamethasone, vitamin supplements. Patient is seen today 09/20/2020 in follow-up on the regular medical floor. He is awake and alert. He continues to require high levels of oxygen. He is c urrently on a 15 L high flow along with a nonrebreather mask with O2 saturations in the mid 80s. He was converted toAirVo high flow oxygen device at 60 L and 90% FiO2. Current O2 saturation 90%. He's been afebrile. Hemodynamically stable. White count 17.6. Hemoglobin 15.3. Lymphocytes 0.5. Sodium 139. Potassium 4.5. Creatinine 0.8. Convalescent plasma was ordered yesterday. Still pending. He completed his course of Remdesivir today. Remains on IV Solu-Medrol. Lovenox. Vitamin supplements. Objective - Vital Signs Vital signs: Vital Signs Temp 97.8 F 09/20/20 11:00 Pulse 86 09/20/20 11:00 Resp 20 09/20/20 11:00 BP 145/82 09/20/20 11:00 Pulse Ox 90 L 09/20/20 12:04 Intake & Output 09/19/20 09/20/20 09/20/20 18:59 06:59 18:59 Intake Total 250 590 Output Total 950 1 Balance -700 590 -1 Intake: Intake, IV Titration 250 Amount Remdesivir 100 mg In 250 Sodium Chloride 0.9% 250 ml @ 250 mls/hr IVPB Q24H [facility] Rx#:[id number] Oral 590 Output: Urine 950 Stool 1 Other: Voiding Method Urinal Urinal # Voids 2 1 # Bowel Movements 1 1 - Exam GENERAL EXAM: Alert, obese, pleasant 59-year-old gentleman, now on AirVo high flow oxygen at 60 L and 90% FiO2, comfortable in no apparent distress. HEAD: Normocephalic. EYES: Normal reaction of pupils, equal size. NOSE: Clear with pink turbinates. THROAT: No erythema or exudates. NECK: No masses, no JVD. CHEST: No chest wall deformity. LUNGS: Equal air entry with bilateral scattered rhonchi. CVS: S1 and S2 normal with no audible murmur, regular rhythm. ABDOMEN: No hepatosplenomegaly, normal bowel sounds, no guarding or rigidity. SPINE: No scoliosis or deformity SKIN: No rashes CENTRAL NERVOUS SYSTEM: No focal deficits, tone is normal in all 4 extremities. EXTREMITIES: There is no peripheral edema. No clubbing, no cyanosis. Peripheral pulses are intact. - Labs CBC & Chem 7: 09/20/20 07:24 09/20/20 07:24 Labs: Abnormal Lab Results - Last 24 Hours (Table) 09/19/20 09/20/20 09/20/20 Range/Units 08:52 07:23 07:24 WBC 17.6 H (3.8-10.6) k/uL Neutrophils # 15.9 H (1.3-7.7) k/uL Lymphocytes # 0.5 L (1.0-4.8) k/uL BUN/Creatinine Ratio (12.00-20.00) Ratio Glucose (70-110) mg/dL POC Glucose (mg/dL) 169 H (75-99) mg/dL Ferritin 512.3 H (22.0-322.0) ng/mL 09/20/20 09/20/20 Range/Units 07:24 10:55 WBC (3.8-10.6) k/uL Neutrophils # (1.3-7.7) k/uL Lymphocytes # (1.0-4.8) k/uL BUN/Creatinine Ratio 25.00 H (12.00-20.00) Ratio Glucose 171 H (70-110) mg/dL POC Glucose (mg/dL) 184 H (75-99) mg/dL Ferritin (22.0-322.0) ng/mL Microbiology - Last 24 Hours (Table) 09/17/20 00:20 Blood Culture - Preliminary Blood No Growth after 72 hours 09/15/20 20:10 Blood Culture - Preliminary Blood No Growth after 96 hours Assessment and Plan Assessment: 1 Acute hypoxic respiratory failure secondary to acute CoVID 19 pneumonitis, currently on AirVo 60 L and 90% FiO2. Completed Remdesivir today. Awaiting convalescent plasma. 2 History of asthma, currently inactive secondary to above 3 History of prostate cancer status post prostatectomy 4 Obesity 5 Lifelong nonsmoker 6 Hyperlipidemia 7 History of gastric esophageal reflux disease 8 History of asbestos 6 exposure while in the Plan: The patient was seen and evaluated by Dr. Ocampo Switch to AirVo high flow and 60 L and 90% FiO2 Completed Remdesivir Awaiting convalescent plasma Remains on high-dose IV Solu-Medrol, Lovenox Prognosis is guarded We'll continue to follow closely and make further recommendations based on his clinical status I, the cosigning physician, performed a history & physical examination of the patient. Lungs sounds with few scattered rhonchi. Maintaining good O2 saturations in the 90s on AirVo high flow at 60 L and 90% FiO2. I discussed the assessment and plan of care with my nurse practitioner, Pauly Grayson. I attest to the above note as dictated by her.
[2020-09-20] MEDS: ACETAMINOPHEN TAB 325 MG TAB PO PRN (17:25)
[2020-09-20 17:40] LABS: Glucose,Whole Blood 294 mg/dL (75-99)
[2020-09-20 20:04] LABS: Glucose,Whole Blood 304 mg/dL (75-99)
[2020-09-20] MEDS ORDERED: INSULIN ASPART (NovoLOG) 100 UNIT/ML VIAL SQ ONE (20:37)
[2020-09-20] MEDS: MELATONIN 5 MG TABLET PO SCH (22:42)
[2020-09-20] MEDS: INSULIN DETEMIR (LEVEMIR) 100 UNIT/ML SYR SQ SCH (22:43)
[2020-09-21] MEDS: methylPREDNISolone SOD SUCCI 125 MG/2 ML VIAL IV SCH ×4 (02:28→17:53)
[2020-09-21] MEDS: INSULIN ASPART (NovoLOG) 100 UNIT/ML VIAL SQ SCH ×5 (03:42→20:45)
[2020-09-21] MEDS: guaiFENesin-Coden 100-10MG/5ML 10 ML CUP PO SCH ×4 (03:43→17:52)
[2020-09-21 06:39] LABS: Basophils # (A) 0.4 k/uL (0-0.2); Basophils % (A) 2 %; Eosinophils # (A) 0.2 k/uL (0-0.7); Eosinophils % (A) 1 %; HCT 47.9 % (39.0-53.0); HGB 15.6 gm/dL (13.0-17.5); Lymphocytes # (A) 0.7 k/uL (1.0-4.8); Lymphocytes % (A) 3 %; MCH 29.6 pg (25.0-35.0); MCHC 32.5 g/dL (31.0-37.0); MCV 91.1 fL (80.0-100.0); Mean Platelet Volume 7.5; Monocytes # (A) 1.5 k/uL (0-1.0); Monocytes % (A) 6 %; Neutrophils # (A) 20.4 k/uL (1.3-7.7); Neutrophils % (A) 87 %; Platelet Count 433 k/uL (150-450); RBC 5.25 m/uL (4.30-5.90); RDW 13.6 % (11.5-15.5); WBC 23.5 k/uL (3.8-10.6)
[2020-09-21 07:24] LABS: Glucose,Whole Blood 144 mg/dL (75-99)
[2020-09-21] MEDS: ENOXAPARIN 60 MG/0.6 ML SYRINGE SQ SCH ×2 (08:10→20:45)
[2020-09-21] MEDS: FUROSEMIDE 20 MG TAB PO SCH (08:11)
[2020-09-21] MEDS: ASCORBIC ACID 500 MG TAB PO SCH (08:11)
[2020-09-21] MEDS: BENZONATATE 100 MG CAP PO SCH ×3 (08:11→20:45)
[2020-09-21] MEDS: buPROPion 75 MG TAB PO SCH (08:11)
[2020-09-21] MEDS: FAMOTIDINE 20 MG TAB PO SCH (08:11)
[2020-09-21] MEDS: ATORVASTATIN 80 MG TAB PO SCH (08:11)
[2020-09-21] MEDS: ZINC SULFATE 220 MG CAP PO SCH (08:11)
[2020-09-21] MEDS: CHOLECALCIFEROL 400 UNIT TAB PO SCH (08:11)
[2020-09-21 09:13] LABS: African American GFR (CKD) 114.1 (60.0-200.0); Anion Gap 9.6 mmol/L (4.00-12.00); BUN/Creat Ratio 31.25 Ratio (12.00-20.00); Calcium 9.3 mg/dL (8.7-10.3); Carbon Dioxide 28.4 mmol/L (21.6-31.8); Non-African American GFR(CKD) 98.5 (60.0-200.0); Potassium 4.4 mmol/L (3.5-5.5)
[2020-09-21] MEDS: ALBUTEROL HFA INHALER INHALATION SCH ×4 (09:25→20:12)
[2020-09-21 11:53] LABS: Glucose,Whole Blood 226 mg/dL (75-99)
--- NOTE | 2020-09-21 14:01 | P.PN ---
Subjective Progress Note Date: 09/19/20 Principal diagnosis: COVID 19 Pneumonia Mr. Shepherd is a 59-year-old male with past medical history of hypertension, GERD, asthma, prostate cancer, PTSD, to the hospital with a chief complaint of generalized weakness dyspnea muscle pain. Patient had elevated inflammatory markers and tested positive for COVID 19. On 09/19/2020 - patient was seen and examined. Patient complaining of cough along with productive sputum. He states the sputum is yellowish and pinkish in color. He states that his difficulty in breathing is slowly getting better. Patient denies any fevers chills or rigors. No chest pain or palpitations. Patient also complaining of pain in his mouth on the upper jaw. On reviewing the vitals, afebrile for the past 24 hours, respiratory rate 20s to 30s, saturating at 94% on 15 L high flow nasal cannula. On reviewing the labs white count of 19.1 hemoglobin 14.9 platelets 351. D-dimer 1.17. Sodium 137, potassium 4.3, chloride 104, bicarbonate 26. Creatinine is 23 and creatinine is 0.83. Inflammatory markers remain high. Active Medications Acetaminophen (Acetaminophen Tab 325 Mg Tab) 650 mg PO Q4HR PRN PRN Reason: Fever and/ or Pain Last Admin: 09/19/20 05:33 Dose: 650 mg Documented by: Albuterol Sulfate (Albuterol Hfa Inhaler) 2 puff INHALATION RT-QID PRN PRN Reason: Shortness Of Breath Or Wheezing Albuterol Sulfate (Albuterol Hfa Inhaler) 2 puff INHALATION RT-QID [facility] Last Admin: 09/19/20 09:39 Dose: 2 puff Documented by: Ascorbic Acid (Ascorbic Acid 500 Mg Tab) 1,000 mg PO DAILY [facility] Last Admin: 09/19/20 09:46 Dose: 1,000 mg Documented by: Atorvastatin Calcium (Atorvastatin 80 Mg Tab) 80 mg PO DAILY [facility] Last Admin: 09/19/20 09:46 Dose: 80 mg Documented by: Bupropion HCl (Bupropion 75 Mg Tab) 150 mg PO DAILY [facility] Last Admin: 09/19/20 09:46 Dose: 150 mg Documented by: Cholecalciferol (Cholecalciferol 400 Unit Tab) 400 unit PO DAILY [facility] Last Admin: 09/19/20 09:46 Dose: 400 unit Documented by: Dexamethasone (Dexamethasone 2 Mg Tab) 6 mg PO DAILY [facility] Last Admin: 09/19/20 09:45 Dose: 6 mg Documented by: Enoxaparin Sodium (Enoxaparin 40 Mg/0.4 Ml Syringe) 40 mg SQ DAILY [facility] Last Admin: 09/19/20 09:46 Dose: 40 mg Documented by: Famotidine (Famotidine 20 Mg Tab) 40 mg PO DAILY [facility] Last Admin: 09/19/20 09:45 Dose: 40 mg Documented by: Furosemide (Furosemide 20 Mg Tab) 20 mg PO DAILY [facility] Last Admin: 09/19/20 09:46 Dose: 20 mg Documented by: Guaifenesin/Codeine Phosphate (Guaifenesin-Coden 100-10mg/5ml 10 Ml Cup) 10 ml PO Q6H [facility] Last Admin: 09/19/20 09:46 Dose: 10 ml Documented by: Remdesivir 100 mg/ Sodium (Chloride) 250 mls @ 250 mls/hr IVPB Q24H [facility] Stop: 09/20/20 13:59 Last Admin: 09/18/20 12:53 Dose: 250 mls/hr Documented by: Melatonin (Melatonin 5 Mg Tablet) 5 mg PO HS [facility] Last Admin: 09/18/20 21:45 Dose: 5 mg Documented by: Trazodone HCl (Trazodone Hcl 50 Mg Tab) 50 mg PO HS PRN PRN Reason: Insomnia Last Admin: 09/18/20 21:45 Dose: 50 mg Documented by: Zinc Sulfate (Zinc Sulfate 220 Mg Cap) 220 mg PO DAILY [facility] Last Admin: 09/19/20 09:46 Dose: 220 mg Documented by: Objective - Vital Signs Vital signs: Vital Signs Temp 98.3 F 09/19/20 11:28 Pulse 78 09/19/20 11:28 Resp 36 H 09/19/20 11:28 BP 118/74 09/19/20 11:28 Pulse Ox 94 L 09/19/20 11:28 Intake & Output 09/18/20 09/19/20 09/19/20 18:59 06:59 18:59 Intake Total 590 Balance 590 Intake: Oral 590 Other: Voiding Method Urinal # Voids 1 2 - Exam GENERAL: The patient is alert and oriented x3, not in any acute distress. Well developed, well nourished. HEENT: Pupils are round and equally reacting to light. No conjunctival pallor. No ulcers or sores in side on his mouth CARDIOVASCULAR: S1 and S2 present. No murmurs, rubs, or gallops. PULMONARY: Chest is clear to auscultation, no wheezing or crackles. ABDOMEN: Soft, nontender, nondistended, normoactive bowel sounds. No palpable organomegaly. MUSCULOSKELETAL: No joint swelling or deformity. EXTREMITIES: No cyanosis, clubbing, or pedal edema. NEUROLOGICAL: Gross neurological examination did not reveal any focal deficits. SKIN: No rashes. no petechiae. - Labs CBC & Chem 7: 09/21/20 06:20 09/21/20 06:20 Labs: Abnormal Lab Results - Last 24 Hours (Table) 09/18/20 09/19/20 09/19/20 Range/Units 07:51 08:52 08:52 WBC 19.1 H (3.8-10.6) k/uL Neutrophils # 16.7 H (1.3-7.7) k/uL Lymphocytes # 0.7 L (1.0-4.8) k/uL Monocytes # 1.1 H (0-1.0) k/uL D-Dimer 1.17 H (<0.60) mg/L FEU BUN (9-20) mg/dL Glucose (74-99) mg/dL Lactate Dehydrogenase (313-618) U/L C-Reactive Protein 18.3 H (0.0-0.8) mg/dL 09/19/20 Range/Units 08:52 WBC (3.8-10.6) k/uL Neutrophils # (1.3-7.7) k/uL Lymphocytes # (1.0-4.8) k/uL Monocytes # (0-1.0) k/uL D-Dimer (<0.60) mg/L FEU BUN 23 H (9-20) mg/dL Glucose 216 H (74-99) mg/dL Lactate Dehydrogenase 834 H (313-618) U/L C-Reactive Protein 82.5 H (0.0-0.8) mg/dL Microbiology - Last 24 Hours (Table) 09/17/20 00:20 Blood Culture - Preliminary Blood No Growth after 48 hours 09/15/20 20:10 Blood Culture - Preliminary Blood No Growth after 72 hours Assessment and Plan Assessment: ASSESSMENT Bilateral Covid pneumonia Increase inflammatory markers secondary to above Hyperlipidemia History of GERD History of asthma, not an active issue History of prostate cancer PTSD History of asbestosis exposure PLAN: Patient is continued Remdesivir and dexamethasone. Continue with the DVT prophylaxis and multivitamin supplements. Continue the current medication regimen and further recommendations depending on the progress of the patient.
--- NOTE | 2020-09-21 14:06 | P.PN ---
Subjective Principal diagnosis: COVID 19 Pneumonia Mr. Shepherd is a 59-year-old male with past medical history of hypertension, GERD, asthma, prostate cancer, PTSD, to the hospital with a chief complaint of generalized weakness dyspnea muscle pain. Patient had elevated inflammatory markers and tested positive for COVID 19. On 09/19/2020 - patient was seen and examined. Patient complaining of cough along with productive sputum. He states the sputum is light pinkish in color. He states that his difficulty in breathing is slowly getting better. Patient denies any fevers chills or rigors. No chest pain or palpitations. He is curr ently on a 15 L high flow along with a nonrebreather mask with O2 saturations in the mid 80s. He was converted to AirVo high flow oxygen device at 60 L and 90% FiO2. Current O2 saturation 90%. He's been afebrile. Blood pressure 153.77, heart rate of 82. On reviewing his labs - White count 17.6. Hemoglobin 15.3. Lymphocytes 0.5. Sodium 139. Potassium 4.5. Creatinine 0.8. Convalescent p lasma was ordered yesterday. Still pending. He completed his course of Remdesivir today. Active Medications Acetaminophen (Acetaminophen Tab 325 Mg Tab) 650 mg PO Q4HR PRN PRN Reason: Fever and/ or Pain Last Admin: 09/20/20 17:25 Dose: 650 mg Documented by: Albuterol Sulfate (Albuterol Hfa Inhaler) 2 puff INHALATION RT-QID PRN PRN Reason: Shortness Of Breath Or Wheezing Albuterol Sulfate (Albuterol Hfa Inhaler) 2 puff INHALATION RT-QID [facility] Last Admin: 09/20/20 21:12 Dose: 2 puff Documented by: Alprazolam (Alprazolam 0.25 Mg Tab) 0.25 mg PO TID PRN PRN Reason: Anxiety Last Admin: 09/20/20 22:42 Dose: 0.25 mg Documented by: Ascorbic Acid (Ascorbic Acid 500 Mg Tab) 1,000 mg PO DAILY [facility] Last Admin: 09/20/20 07:54 Dose: 1,000 mg Documented by: Atorvastatin Calcium (Atorvastatin 80 Mg Tab) 80 mg PO DAILY [facility] Last Admin: 09/20/20 07:54 Dose: 80 mg Documented by: Benzonatate (Benzonatate 100 Mg Cap) 200 mg PO TID [facility] Last Admin: 09/20/20 22:42 Dose: 200 mg Documented by: Bupropion HCl (Bupropion 75 Mg Tab) 150 mg PO DAILY [facility] Last Admin: 09/20/20 08:27 Dose: 150 mg Documented by: Cholecalciferol (Cholecalciferol 400 Unit Tab) 400 unit PO DAILY [facility] Last Admin: 09/20/20 07:55 Dose: 400 unit Documented by: Enoxaparin Sodium (Enoxaparin 60 Mg/0.6 Ml Syringe) 60 mg SQ BID [facility] Last Admin: 09/20/20 22:43 Dose: 60 mg Documented by: Famotidine (Famotidine 20 Mg Tab) 40 mg PO DAILY [facility] Last Admin: 09/20/20 07:56 Dose: 40 mg Documented by: Furosemide (Furosemide 20 Mg Tab) 20 mg PO DAILY [facility] Last Admin: 09/20/20 07:56 Dose: 20 mg Documented by: Guaifenesin/Codeine Phosphate (Guaifenesin-Coden 100-10mg/5ml 10 Ml Cup) 10 ml PO Q6H [facility] Last Admin: 09/20/20 19:45 Dose: 10 ml Documented by: Insulin Aspart (Insulin Aspart (Novolog) 100 Unit/Ml Vial) 0 unit SQ [facility]; Protocol Insulin Detemir (Insulin Detemir (Levemir) 100 Unit/Ml Syr) 10 unit SQ [facility] Last Admin: 09/20/20 22:43 Dose: 10 unit Documented by: Melatonin (Melatonin 5 Mg Tablet) 5 mg PO HS [facility] Last Admin: 09/20/20 22:42 Dose: 5 mg Documented by: Methylprednisolone Sodium Succinate (Methylprednisolone Sod Succi 125 Mg/2 Ml Vial) 60 mg IV Q6HR [facility] Last Admin: 09/20/20 17:25 Dose: 60 mg Documented by: Trazodone HCl (Trazodone Hcl 50 Mg Tab) 50 mg PO HS PRN PRN Reason: Insomnia Last Admin: 09/18/20 21:45 Dose: 50 mg Documented by: Zinc Sulfate (Zinc Sulfate 220 Mg Cap) 220 mg PO DAILY [facility] Last Admin: 09/20/20 07:56 Dose: 220 mg Documented by: Objective - Vital Signs Vital signs: Vital Signs Temp 98 F 09/21/20 00:16 Pulse 77 09/21/20 00:16 Resp 16 09/21/20 00:16 BP 146/83 09/21/20 00:16 Pulse Ox 50 L 09/20/20 23:46 Intake & Output 09/20/20 09/20/20 09/21/20 06:59 18:59 06:59 Intake Total 590 1200 Output Total 601 400 Balance 590 -601 800 Intake: Oral 590 1200 Blood Product 0 Ffp Pher Conval Covid19 0 Acda 1 Unit [id number] Output: Urine 600 400 Stool 1 Other: Voiding Method Urinal # Voids 2 2 # Bowel Movements 1 1 2 - Exam PHYSICAL EXAM GENERAL: The patient is alert and oriented x3, not in any acute distress. Well developed, well nourished. HEENT: Pupils are round and equally reacting to light. No conjunctival pallor. CARDIOVASCULAR: S1 and S2 present. No murmurs, rubs, or gallops. PULMONARY: Chest is clear to auscultation, no wheezing or crackles. ABDOMEN: Soft, nontender, nondistended, normoactive bowel sounds. No palpable organomegaly. MUSCULOSKELETAL: No joint swelling or deformity. EXTREMITIES: No cyanosis, clubbing, or pedal edema. NEUROLOGICAL: Gross neurological examination did not reveal any focal deficits. SKIN: No rashes. no petechiae. - Labs CBC & Chem 7: 09/21/20 06:20 09/21/20 06:20 Labs: Abnormal Lab Results - Last 24 Hours (Table) 09/20/20 09/20/20 09/20/20 Range/Units 07:23 07:24 07:24 WBC 17.6 H (3.8-10.6) k/uL Neutrophils # 15.9 H (1.3-7.7) k/uL Lymphocytes # 0.5 L (1.0-4.8) k/uL BUN/Creatinine Ratio 25.00 H (12.00-20.00) Ratio Glucose 171 H (70-110) mg/dL POC Glucose (mg/dL) 169 H (75-99) mg/dL 09/20/20 09/20/20 09/20/20 Range/Units 10:55 17:38 20:03 WBC (3.8-10.6) k/uL Neutrophils # (1.3-7.7) k/uL Lymphocytes # (1.0-4.8) k/uL BUN/Creatinine Ratio (12.00-20.00) Ratio Glucose (70-110) mg/dL POC Glucose (mg/dL) 184 H 294 H 304 H (75-99) mg/dL Microbiology - Last 24 Hours (Table) 09/15/20 20:10 Blood Culture - Preliminary Blood No Growth after 120 hours 09/17/20 00:20 Blood Culture - Preliminary Blood No Growth after 72 hours Assessment and Plan Assessment: ASSESSMENT Bilateral Covid pneumonia Increase inflammatory markers secondary to above Hyperlipidemia History of GERD History of asthma, not an active issue History of prostate cancer PTSD History of asbestosis exposure PLAN: Patient is completely Remdesivir today and to continue with dexam ethasone. Awaiting convalescent plasma. Continue with the DVT prophylaxis and multivitamin supplements. Continue the current medication regimen and further recommendations depending on the progress of the patient.
--- NOTE | 2020-09-21 14:12 | P.PN ---
Subjective Progress Note Date: 09/21/20 59-year-old male patient is being seen in follow-up for rhinovirus over 19 pneumonia. The patient remains on high flow oxygen at 6 L with an FiO2 of 90%. The patient's pulse ox in the low 90s. He completed Remdesivir , total of 5 day course, he completed a unit of convalescent plasma this morning, and he is on Decadron, vitamin C, vitamin D, Pepcid and melatonin and zinc. The patient is afebrile. The patient is on IV Solu-Medrol as the patient got her some Decadron Solu-Medrol. The chest x-ray showed diffuse bilateral pulmonary airspace disease and infiltration with smaller lung volumes. The patient is bringing up some minimal amount of yellow sputum. He has a good appetite. No nausea. No vomiting. He is having diarrhea. No abdominal pain Objective - Vital Signs Vital signs: Vital Signs Temp 97.4 F L 09/21/20 11:45 Pulse 74 09/21/20 11:45 Resp 18 09/21/20 11:45 BP 156/85 09/21/20 11:45 Pulse Ox 91 L 09/21/20 12:30 Intake & Output 09/20/20 09/21/20 09/21/20 18:59 06:59 18:59 Intake Total 2005 Output Total 601 701 Balance -601 1305 Intake: Oral 1790 Blood Product 216 Ffp Pher Conval Covid19 216 Acda 1 Unit [id number] Output: Urine 600 700 Stool 1 1 Other: Voiding Method Urinal Urinal # Voids 2 # Bowel Movements 1 1 - Exam GENERAL EXAM: Alert, obese, pleasant 59-year-old gentleman, now on AirVo high flow oxygen at 60 L and 90% FiO2, comfortable in no apparent distress. HEAD: Normocephalic. EYES: Normal reaction of pupils, equal size. NOSE: Clear with pink turbinates. THROAT: No erythema or exudates. NECK: No masses, no JVD. CHEST: No chest wall deformity. LUNGS: Equal air entry with bilateral scattered rhonchi. CVS: S1 and S2 normal with no audible murmur, regular rhythm. ABDOMEN: No hepatosplenomegaly, normal bowel sounds, no guarding or rigidity. SPINE: No scoliosis or deformity SKIN: No rashes CENTRAL NERVOUS SYSTEM: No focal deficits, tone is normal in all 4 extremities. EXTREMITIES: There is no peripheral edema. No clubbing, no cyanosis. Peripheral pulses are intact. - Labs CBC & Chem 7: 09/21/20 06:20 09/21/20 06:20 Labs: Abnormal Lab Results - Last 24 Hours (Table) 09/20/20 09/20/20 09/21/20 Range/Units 17:38 20:03 06:20 WBC 23.5 H (3.8-10.6) k/uL Neutrophils # 20.4 H (1.3-7.7) k/uL Lymphocytes # 0.7 L (1.0-4.8) k/uL Monocytes # 1.5 H (0-1.0) k/uL Basophils # 0.4 H (0-0.2) k/uL BUN/Creatinine Ratio (12.00-20.00) Ratio Glucose (70-110) mg/dL POC Glucose (mg/dL) 294 H 304 H (75-99) mg/dL 09/21/20 09/21/20 09/21/20 Range/Units 06:20 07:22 11:51 WBC (3.8-10.6) k/uL Neutrophils # (1.3-7.7) k/uL Lymphocytes # (1.0-4.8) k/uL Monocytes # (0-1.0) k/uL Basophils # (0-0.2) k/uL BUN/Creatinine Ratio 31.25 H (12.00-20.00) Ratio Glucose 185 H (70-110) mg/dL POC Glucose (mg/dL) 144 H 226 H (75-99) mg/dL Microbiology - Last 24 Hours (Table) 09/17/20 00:20 Blood Culture - Preliminary Blood No Growth after 96 hours 09/15/20 20:10 Blood Culture - Preliminary Blood No Growth after 120 hours Assessment and Plan Plan: 1 Acute hypoxic respiratory failure secondary to acute CoVID 19 pneumonitis, currently on AirVo 60 L and 90% FiO2. Completed Remdesivir today. Awaiting convalescent plasma. 2 History of asthma, currently inactive secondary to above 3 History of prostate cancer status post prostatectomy 4 Obesity 5 Lifelong nonsmoker 6 Hyperlipidemia 7 History of gastric esophageal reflux disease 8 History of asbestos 6 exposure while in the Plan: Switch to AirVo high flow and 60 L and 90% FiO2 Completed Remdesivir Completed convalescent plasma Remains on high-dose IV Solu-Medrol Lovenox for DVT prophylaxis. C x-ray from yesterday showed diffuse bilateral pulmonary infiltrates. He is having some liquidy diarrhea and is going to be monitored Prognosis is guarded We'll continue to follow closely and make further recommendations based on his clinical status
--- NOTE | 2020-09-21 16:37 | P.PN ---
Subjective Progress Note Date: 09/21/20 This is a 59-year-old male who was recently admitted with Covid 19 pneumonia and is being closely monitored. Patient continues to have shortness of breath and is currently now on an Airvo as his respiratory status has worsened. Patient continues to have cough with sputum production. Discussed with nursing staff about attempting to wean FiO2 as tolerated. Patient also received convalescent plasma yesterday. Pulmonary is following closely. Review of systems: Constitutional: Reports fatigue, with no reports of fever, or chills Cardiovascular: No reports of chest pain or palpitations Respiratory: Reports increased shortness of breath and productive cough GI: No reports of nausea, vomiting, or diarrhea : No reports of dysuria or retention Neurovascular: No reports of weakness or numbness All medications have been reviewed Objective - Vital Signs Vital signs: Vital Signs Temp 97.4 F L 09/21/20 11:45 Pulse 74 09/21/20 11:45 Resp 18 09/21/20 11:45 BP 156/85 09/21/20 11:45 Pulse Ox 91 L 09/21/20 12:30 Intake & Output 09/20/20 09/21/20 09/21/20 18:59 06:59 18:59 Intake Total 2005 Output Total 601 701 Balance -601 1305 Intake: Oral 1790 Blood Product 216 Ffp Pher Conval Covid19 216 Acda 1 Unit [id number] Output: Urine 600 700 Stool 1 1 Other: Voiding Method Urinal Urinal # Voids 2 # Bowel Movements 1 1 - Exam GENERAL: The patient is alert and oriented x3, not in any acute distress. Well developed, well nourished. HEENT: Pupils are round and equally reacting to light. No conjunctival pallor. CARDIOVASCULAR: S1 and S2 present. No murmurs, rubs, or gallops. PULMONARY: Diminished breath sounds bilaterally with some scattered rhonchi noted. ABDOMEN: Soft, nontender, nondistended, normoactive bowel sounds. No palpable organomegaly. MUSCULOSKELETAL: No joint swelling or deformity. EXTREMITIES: No cyanosis, clubbing, or pedal edema. NEUROLOGICAL: Gross neurological examination did not reveal any focal deficits. SKIN: No rashes. no petechiae. - Labs CBC & Chem 7: 09/21/20 06:20 09/21/20 06:20 Labs: Abnormal Lab Results - Last 24 Hours (Table) 09/20/20 09/20/20 09/21/20 Range/Units 17:38 20:03 06:20 WBC 23.5 H (3.8-10.6) k/uL Neutrophils # 20.4 H (1.3-7.7) k/uL Lymphocytes # 0.7 L (1.0-4.8) k/uL Monocytes # 1.5 H (0-1.0) k/uL Basophils # 0.4 H (0-0.2) k/uL BUN/Creatinine Ratio (12.00-20.00) Ratio Glucose (70-110) mg/dL POC Glucose (mg/dL) 294 H 304 H (75-99) mg/dL 09/21/20 09/21/20 09/21/20 Range/Units 06:20 07:22 11:51 WBC (3.8-10.6) k/uL Neutrophils # (1.3-7.7) k/uL Lymphocytes # (1.0-4.8) k/uL Monocytes # (0-1.0) k/uL Basophils # (0-0.2) k/uL BUN/Creatinine Ratio 31.25 H (12.00-20.00) Ratio Glucose 185 H (70-110) mg/dL POC Glucose (mg/dL) 144 H 226 H (75-99) mg/dL Microbiology - Last 24 Hours (Table) 09/17/20 00:20 Blood Culture - Preliminary Blood No Growth after 96 hours 09/15/20 20:10 Blood Culture - Preliminary Blood No Growth after 120 hours Assessment and Plan Assessment: Bilateral Covid pneumonia Increase inflammatory markers secondary to above Hyperlipidemia History of GERD History of asthma, not an active issue History of prostate cancer PTSD History of asbestosis exposure PLAN: Continue with current medications. Continue to wean FiO2 as tolerated as patient maintains on Airvo as his respiratory status had deteriorated. Patient received convalescent plasma and has completed a course of Remdesivir. Continue with Lovenox, dexamethasone, vitamins C and D and zinc supplements. Pulmonary following closely. Further recommendations to follow depending on the clinical course of the patient.
[2020-09-21 16:54] LABS: Glucose,Whole Blood 213 mg/dL (75-99)
[2020-09-21 20:05] LABS: Glucose,Whole Blood 225 mg/dL (75-99)
[2020-09-21] MEDS: INSULIN DETEMIR (LEVEMIR) 100 UNIT/ML SYR SQ SCH (20:44)
[2020-09-21] MEDS: ALPRAZolam 0.25 MG TAB PO PRN (20:45)
[2020-09-21] MEDS: MELATONIN 5 MG TABLET PO SCH (20:46)
[2020-09-22] MEDS: methylPREDNISolone SOD SUCCI 125 MG/2 ML VIAL IV SCH ×4 (00:24→16:53)
[2020-09-22] MEDS: guaiFENesin-Coden 100-10MG/5ML 10 ML CUP PO SCH ×4 (00:41→20:07)
[2020-09-22 07:15] LABS: Glucose,Whole Blood 145 mg/dL (75-99)
[2020-09-22] MEDS: BENZONATATE 100 MG CAP PO SCH ×3 (08:21→21:25)
[2020-09-22] MEDS: FAMOTIDINE 20 MG TAB PO SCH (08:21)
[2020-09-22] MEDS: ASCORBIC ACID 500 MG TAB PO SCH (08:21)
[2020-09-22] MEDS: ZINC SULFATE 220 MG CAP PO SCH (08:21)
[2020-09-22] MEDS: FUROSEMIDE 20 MG TAB PO SCH (08:21)
[2020-09-22] MEDS: ATORVASTATIN 80 MG TAB PO SCH (08:21)
[2020-09-22] MEDS: INSULIN ASPART (NovoLOG) 100 UNIT/ML VIAL SQ SCH ×4 (08:22→21:19)
[2020-09-22] MEDS: ENOXAPARIN 60 MG/0.6 ML SYRINGE SQ SCH ×2 (08:22→20:07)
[2020-09-22] MEDS: CHOLECALCIFEROL 400 UNIT TAB PO SCH (08:22)
[2020-09-22] MEDS: buPROPion 75 MG TAB PO SCH (08:22)
[2020-09-22] MEDS: ALBUTEROL HFA INHALER INHALATION SCH ×4 (09:09→19:47)
[2020-09-22 11:49] LABS: Glucose,Whole Blood 180 mg/dL (75-99)
--- NOTE | 2020-09-22 13:03 | P.PN ---
Subjective Progress Note Date: 09/22/20 59-year-old male patient is being seen in follow-up for COVID 19 pneumonia. The patient remains on high flow oxygen at 6o L with an FiO2 of 90%. The patient's pulse ox in the low 90s. He completed Remdesivir , total of 5 day course, he completed a unit of convalescent plasma this morning, and he is on Decadron, vitamin C, vitamin D, Pepcid and melatonin and zinc. The patient is afebrile. The patient is on IV Solu-Medrol as the patient got her some Decadron Solu-Medrol. The chest x-ray showed diffuse bilateral pulmonary airspace disease and infiltration with smaller lung volumes. The patient is bringing up some minimal amount of yellow sputum. He has a good appetite. No nausea. No vomiting. He is having diarrhea. No abdominal pain On 09/22/2020 the patient is being seen in follow-up. The patient is currently on 60 L high flow oxygen with an FiO2 of 90%.. He feels that his breathing is essentially the same. He feels slightly better compared to yesterday.More energy. He completed Remdesivir , total of 5 day course, he completed a unit of convalescent plasma this morning, and he is on Decadron, vitamin C, vitamin D, Pepcid and melatonin and zinc. The patient is afebrile. the patient remains on IV Solu-Medrol. He is able to sit up on a recliner. He has occasional cough. No other new complaints for now. Blood work essentially within normal limits.Otherwise identified elevated up to 23 and this is probably related to systemic steroids. Continues to have some limited diarrhea. Objective - Vital Signs Vital signs: Vital Signs Temp 97.6 F 09/22/20 11:00 Pulse 76 09/22/20 11:00 Resp 20 09/22/20 11:00 BP 149/77 09/22/20 11:00 Pulse Ox 93 L 09/22/20 11:00 Intake & Output 09/21/20 09/22/20 09/22/20 18:59 06:59 18:59 Intake Total 590 Output Total 400 701 Balance -400 -111 Intake: Oral 590 Output: Urine 400 700 Stool 1 Other: Voiding Method Urinal Urinal Urinal - Exam GENERAL EXAM: Alert, obese, pleasant 59-year-old gentleman, now on AirVo high flow oxygen at 60 L and 90% FiO2, comfortable in no apparent distress. HEAD: Normocephalic. EYES: Normal reaction of pupils, equal size. NOSE: Clear with pink turbinates. THROAT: No erythema or exudates. NECK: No masses, no JVD. CHEST: No chest wall deformity. LUNGS: Equal air entry with bilateral scattered rhonchi. CVS: S1 and S2 normal with no audible murmur, regular rhythm. ABDOMEN: No hepatosplenomegaly, normal bowel sounds, no guarding or rigidity. SPINE: No scoliosis or deformity SKIN: No rashes CENTRAL NERVOUS SYSTEM: No focal deficits, tone is normal in all 4 extremities. EXTREMITIES: There is no peripheral edema. No clubbing, no cyanosis. Peripheral pulses are intact. - Labs CBC & Chem 7: 09/21/20 06:20 09/21/20 06:20 Labs: Abnormal Lab Results - Last 24 Hours (Table) 09/21/20 09/21/20 09/22/20 Range/Units 16:52 20:04 07:07 POC Glucose (mg/dL) 213 H 225 H 145 H (75-99) mg/dL 09/22/20 Range/Units 11:47 POC Glucose (mg/dL) 180 H (75-99) mg/dL Microbiology - Last 24 Hours (Table) 09/17/20 00:20 Blood Culture - Preliminary Blood No Growth after 120 hours 09/15/20 20:10 Blood Culture - Final Blood No Growth after 144 hours Assessment and Plan Plan: 1 Acute hypoxic respiratory failure secondary to acute CoVID 19 pneumonitis, currently on AirVo 60 L and 90% FiO2. Completed Remdesivir today. received convalescent plasma.no major improvement in his oxygenation. The patient is still requiring high flow oxygen 6 L. 2 History of asthma, currently inactive secondary to above 3 History of prostate cancer status post prostatectomy 4 Obesity 5 Lifelong nonsmoker 6 Hyperlipidemia 7 History of gastric esophageal reflux disease 8 History of asbestos 6 exposure while in the Plan: Switch to AirVo high flow and 60 L and 90% FiO2 Completed Remdesivir Completed convalescent plasma Remains on high-dose IV Solu-Medrol Lovenox for DVT prophylaxis. C x-ray from yesterday showed diffuse bilateral pulmonary infiltrates.I'm going to repeat a chest x-ray tomorrow The white cell count is elevated because of systemic steroids. He is having some liquidy diarrhea and is going to be monitored Prognosis is guarded We'll continue to follow closely and make further recommendations based on his clinical status
[2020-09-22 13:31] VITALS: BMI 47.3
[2020-09-22 16:35] LABS: Glucose,Whole Blood 197 mg/dL (75-99)
[2020-09-22] MEDS: MELATONIN 5 MG TABLET PO SCH (20:07)
[2020-09-22 20:18] LABS: C Reactive Protein 2.8 mg/dL (0.0-0.8)
[2020-09-22 20:22] LABS: Glucose,Whole Blood 244 mg/dL (75-99)
[2020-09-22] MEDS: INSULIN DETEMIR (LEVEMIR) 100 UNIT/ML SYR SQ SCH (21:19)
--- NOTE | 2020-09-22 22:02 | P.PN ---
Subjective This is a pleasant 59 years old male with multiple medical problems as below including hyperlipidemia, GERD, asthma, history of prostate cancer, PTSD and history of asthma asbestos exposure. He follows at the [facility]. He presents because of dyspnea and generalized weakness and muscle pain. No coughing or chest pain. Patient had persistent dyspnea despite using his inhalers No abdominal pain or fever, no diarrhea or change in bowel habits. No dysuria. No headache or weakness Vitals are unremarkable and patient is afebrile. He is currently saturating 92% on room air Admission labs showing leukocytosis of 15 K, d-dimer was elevated at 0.97, BMP and liver enzymes are unremarkable. Covid test is positive EKG showing sinus tachycardia at [address]-T changes CTA of the chest, [place] pulmonary interstitial pneumonia remained no evidence of pulmonary embolism Was given 1 dose of Solu-Medrol and 1 dose of Zithromax and ceftriaxone 09/17/2020 Patient in mild respiratory distress with significant coughing asking for something to help him, Robitussin ac is been added. He is on 2.5-3 L/m oxygen via nasal cannula Continue with dexamethasone and Lovenox and remdesivir Follow-up chest x-ray and inflammatory markers tomorrow 09/18/2020 Patient is breathing easily, patient is still coughing and not completely resolved. No chest pain. Saturating in the 90s with oxygen 3-5 L/m. Pulmonary team on the case and patient is found closely by Dr. Ocampo, Who ordered inflammatory markers and chest x-ray: Findings consistent with patient's history of pneumonia, progression compared to prior exam .Continue w ith treatment as per recommendation by pulmonary team, is currently on dexamethasone, Lovenox and remdesivir, also on vitamin C and zinc. Antibiotics were stopped by pulmonary team 09/22/2020 (Patient has been followed by my colleague over the last 3 days) Patient was admitted with Covid pneumonia, he is a still on 50 L oxygen via high flow nasal cannula, patient reports some improvement compared to yesterday, he is not in significant respiratory distress, coughing is better controlled. He h ad 2 loose bowel movement today which is suspicious for Covid gastroenteritis but no abdominal pain or vomiting His d-dimer is slightly elevated at 1.28. Patient currently on vitamin C and zinc Solu-Medrol 60 mg and Lovenox 60 mg twice daily .patient also was placed on insulin 10 units at bedtime for better glucose control (Not home medication ) Review of Systems CONSTITUTIONAL: No fever, no malaise, no fatigue. HEENT: No recent visual problems or hearing problems. Denied any sore throat. CARDIOVASCULAR: No orthopnea, PND, no palpitations, no syncope. PULMONARY: No chest wall tenderness, no hemoptysis. GASTROINTESTINAL: No diarrhea, no nausea, no vomiting, no abdominal pain. Normoactive bowel sounds. NEUROLOGICAL: No headaches, no weakness, no numbness. Active Medications Generic Name Dose Route Start Last Admin Trade Name Freq PRN Reason Stop Dose Admin Acetaminophen 650 mg 09/16/20 22:07 09/20/20 17:25 Acetaminophen Tab 325 Mg Tab PO 650 mg Q4HR PRN Administration Fever and/ or Pain Albuterol Sulfate 2 puff 09/16/20 07:19 Albuterol Hfa Inhaler INHALATION RT-QID PRN Shortness Of Breath Or Wheezing Albuterol Sulfate 2 puff 09/16/20 08:00 09/22/20 19:47 Albuterol Hfa Inhaler INHALATION 2 puff RT-QID [place] Administration Alprazolam 0.25 mg 09/20/20 12:29 09/21/20 20:45 Alprazolam 0.25 Mg Tab PO 0.25 mg TID PRN Administration Anxiety Ascorbic Acid 1,000 mg 09/16/20 09:00 09/22/20 08:21 Ascorbic Acid 500 Mg Tab PO 1,000 mg DAILY [place] Administration Atorvastatin Calcium 80 mg 09/16/20 09:00 09/22/20 08:21 Atorvastatin 80 Mg Tab PO 80 mg DAILY [place] Administration Benzonatate 200 mg 09/19/20 12:30 09/22/20 21:25 Benzonatate 100 Mg Cap PO 200 mg TID [place] Administration Bupropion HCl 150 mg 09/16/20 09:00 09/22/20 08:22 Bupropion 75 Mg Tab PO 150 mg DAILY [place] Administration Cholecalciferol 400 unit 09/17/20 09:00 09/22/20 08:22 Cholecalciferol 400 Unit Tab PO 400 unit DAILY [place] Administration Enoxaparin Sodium 60 mg 09/19/20 21:00 09/22/20 20:07 Enoxaparin 60 Mg/0.6 Ml Syringe SQ 60 mg BID [place] Administration Famotidine 40 mg 09/17/20 09:00 09/22/20 08:21 Famotidine 20 Mg Tab PO 40 mg DAILY [place] Administration Furosemide 20 mg 09/16/20 09:00 09/22/20 08:21 Furosemide 20 Mg Tab PO 20 mg DAILY [place] Administration Guaifenesin/Codeine Phosphate 10 ml 09/17/20 13:00 09/22/20 20:07 Guaifenesin-Coden 100-10mg/5ml 10 Ml Cup PO 10 ml Q6H [place] Administration Insulin Aspart 0 unit 09/20/20 21:00 09/22/20 21:19 Insulin Aspart (Novolog) 100 Unit/Ml Vial SQ 8 unit ACHS [place] Administration Protocol Insulin Detemir 10 unit 09/20/20 21:00 09/22/20 21:19 Insulin Detemir (Levemir) 100 Unit/Ml Syr SQ 10 unit HS [place] Administration Melatonin 5 mg 09/16/20 21:00 09/22/20 20:07 Melatonin 5 Mg Tablet PO 5 mg HS [place] Administration Methylprednisolone Sodium Succinate 60 mg 09/19/20 18:00 09/22/20 16:53 Methylprednisolone Sod Succi 125 Mg/2 Ml Vial IV 60 mg Q6HR [place] Administration Trazodone HCl 50 mg 09/16/20 23:38 09/18/20 21:45 Trazodone Hcl 50 Mg Tab PO 50 mg HS PRN Administration Insomnia Zinc Sulfate 220 mg 09/16/20 09:00 09/22/20 08:21 Zinc Sulfate 220 Mg Cap PO 220 mg DAILY [place] Administration Objective - Vital Signs Vital signs: Vital Signs Temp 97.6 F 09/22/20 11:00 Pulse 76 09/22/20 11:00 Resp 20 09/22/20 11:00 BP 149/77 09/22/20 11:00 Pulse Ox 93 L 09/22/20 11:00 Intake & Output 09/21/20 09/22/20 09/22/20 18:59 06:59 18:59 Intake Total 590 Output Total 400 701 Balance -400 -111 Intake: Oral 590 Output: Urine 400 700 Stool 1 Other: Voiding Method Urinal Urinal Urinal - Exam GENERAL: The patient is alert and oriented x3, not in any acute distress. Well developed, well nourished. HEENT: Pupils are round and equally reacting to light. EOMI. No scleral icterus. No conjunctival pallor. Normocephalic, atraumatic. No pharyngeal erythema. No thyromegaly. CARDIOVASCULAR: S1 and S2 present. No murmurs, rubs, or gallops. PULMONARY: Chest is clear to auscultation, no wheezing or crackles. ABDOMEN: Soft, nontender, nondistended, normoactive bowel sounds. No palpable organomegaly. MUSCULOSKELETAL: No joint swelling or deformity. EXTREMITIES: No cyanosis, clubbing, or pedal edema. NEUROLOGICAL: Gross neurological examination did not reveal any focal deficits. SKIN: No rashes. no petechiae. - Labs CBC & Chem 7: 09/21/20 06:20 09/21/20 06:20 Labs: Abnormal Lab Results - Last 24 Hours (Table) 09/21/20 09/21/20 09/22/20 Range/Units 16:52 20:04 07:07 POC Glucose (mg/dL) 213 H 225 H 145 H (75-99) mg/dL 09/22/20 Range/Units 11:47 POC Glucose (mg/dL) 180 H (75-99) mg/dL Microbiology - Last 24 Hours (Table) 09/17/20 00:20 Blood Culture - Preliminary Blood No Growth after 120 hours 09/15/20 20:10 Blood Culture - Final Blood No Growth after 144 hours Assessment and Plan Assessment: Bilateral Covid pneumonia Increase inflammatory markers secondary to above Covid gastroenteritis Hyperlipidemia History of GERD History of asthma, not an active issue History of prostate cancer PTSD History of asbestosis exposure Plan: This is a pleasant 59 years old male who presents because of Covid pneumonia. Continue with zinc sulfate, ascorbic acid and Lovenox. Follow-up recommendation by pulmonary service Labs and medication were reviewed.. Continue same treatment. Continue with symptomatic treatment. Resume home medication. Monitor lytes and vitals. DVT and GI prophylaxis. Further recommendations depends on the clinical course of the patient DVT prophylaxis: Subcutaneous Lovenox GI Prophylaxis: Ppi Prognosis is guarded
[2020-09-23] MEDS: guaiFENesin-Coden 100-10MG/5ML 10 ML CUP PO SCH ×5 (00:41→23:58)
[2020-09-23] MEDS: methylPREDNISolone SOD SUCCI 125 MG/2 ML VIAL IV SCH ×5 (00:43→23:57)
[2020-09-23 07:14] LABS: Glucose,Whole Blood 153 mg/dL (75-99)
--- NOTE | 2020-09-23 08:25 | XR ---
EXAMINATION TYPE: XR chest 1V DATE OF EXAM: 09/23/2020 COMPARISON: 09/20/2020 HISTORY: Shortness of breath TECHNIQUE: Single frontal view of the chest is obtained. FINDINGS: Diffuse patchy bilateral infiltrates are stable. Heart is enlarged. No pneumothorax. Posts urgical change overlying the left scapula. No sizable pleural effusion. Heart enlarged. IMPRESSION: Stable diffuse bilateral infiltrates
[2020-09-23] MEDS: INSULIN ASPART (NovoLOG) 100 UNIT/ML VIAL SQ SCH ×4 (08:50→20:20)
[2020-09-23] MEDS: ALBUTEROL HFA INHALER INHALATION SCH ×4 (08:56→19:31)
[2020-09-23] MEDS: FAMOTIDINE 20 MG TAB PO SCH (09:41)
[2020-09-23] MEDS: BENZONATATE 100 MG CAP PO SCH ×3 (09:41→20:18)
[2020-09-23] MEDS: FUROSEMIDE 20 MG TAB PO SCH (09:41)
[2020-09-23] MEDS: ATORVASTATIN 80 MG TAB PO SCH (09:41)
[2020-09-23] MEDS: ASCORBIC ACID 500 MG TAB PO SCH (09:41)
[2020-09-23] MEDS: CHOLECALCIFEROL 400 UNIT TAB PO SCH (09:42)
[2020-09-23] MEDS: ENOXAPARIN 60 MG/0.6 ML SYRINGE SQ SCH ×2 (09:42→20:20)
[2020-09-23] MEDS: ZINC SULFATE 220 MG CAP PO SCH (09:42)
[2020-09-23] MEDS: buPROPion 75 MG TAB PO SCH (09:42)
[2020-09-23 11:30] LABS: Glucose,Whole Blood 190 mg/dL (75-99)
--- NOTE | 2020-09-23 12:20 | P.PN ---
Subjective Progress Note Date: 09/23/20 59-year-old male patient is being seen in follow-up for COVID 19 pneumonia. The patient remains on high flow oxygen at 6o L with an FiO2 of 90%. The patient's pulse ox in the low 90s. He completed Remdesivir , total of 5 day course, he completed a unit of convalescent plasma this morning, and he is on Decadron, vitamin C, vitamin D, Pepcid and melatonin and zinc. The patient is afebrile. The patient is on IV Solu-Medrol as the patient got her some Decadron Solu-Medrol. The chest x-ray showed diffuse bilateral pulmonary airspace disease and infiltration with smaller lung volumes. The patient is bringing up some minimal amount of yellow sputum. He has a good appetite. No nausea. No vomiting. He is having diarrhea. No abdominal pain On 09/22/2020 the patient is being seen in follow-up. The patient is currently on 60 L high flow oxygen with an FiO2 of 90%.. He feels that his breathing is essentially the same. He feels slightly better compared to yesterday.More energy. He completed Remdesivir , total of 5 day course, he completed a unit of convalescent plasma this morning, and he is on Decadron, vitamin C, vitamin D, Pepcid and melatonin and zinc. The patient is afebrile. the patient remains on IV Solu-Medrol. He is able to sit up on a recliner. He has occasional cough. No other new complaints for now. Blood work essentially within normal limits.Otherwise identified elevated up to 23 and this is probably related to systemic steroids. Continues to have some limited diarrhea. on 09/23/2020, the patient is essentially the same. No interval improvement. No interval worsening. Still on high flow oxygen 60 L with an FiO2 of 90%. Chest x-ray remains essentially unchanged. The patient clinically feels the same. No clinical improvement of worsening. He remains on IV Solu-Medrol. COVID 19 treatment is been offered to this patient. No other new complaints otherwise for now. Objective - Vital Signs Vital signs: Vital Signs Temp 97.5 F L 09/23/20 04:49 Pulse 76 09/23/20 04:49 Resp 22 09/23/20 04:49 BP 148/83 09/23/20 04:49 Pulse Ox 87 L 09/23/20 04:49 Intake & Output 09/22/20 09/23/20 09/23/20 18:59 06:59 18:59 Intake Total 1090 Output Total 701 Balance 389 Weight 158.304 kg Intake: Oral 1090 Output: Urine 700 Stool 1 Other: Voiding Method Urinal Urinal # Voids 4 - Exam GENERAL EXAM: Alert, obese, pleasant 59-year-old gentleman, now on AirVo high flow oxygen at 60 L and 90% FiO2, comfortable in no apparent distress. HEAD: Normocephalic. EYES: Normal reaction of pupils, equal size. NOSE: Clear with pink turbinates. THROAT: No erythema or exudates. NECK: No masses, no JVD. CHEST: No chest wall deformity. LUNGS: Equal air entry with bilateral scattered rhonchi. CVS: S1 and S2 normal with no audible murmur, regular rhythm. ABDOMEN: No hepatosplenomegaly, normal bowel sounds, no guarding or rigidity. SPINE: No scoliosis or deformity SKIN: No rashes CENTRAL NERVOUS SYSTEM: No focal deficits, tone is normal in all 4 extremities. EXTREMITIES: There is no peripheral edema. No clubbing, no cyanosis. Peripheral pulses are intact. - Labs CBC & Chem 7: 09/21/20 06:20 09/21/20 06:20 Labs: Abnormal Lab Results - Last 24 Hours (Table) 09/22/20 09/22/20 09/22/20 Range/Units 14:13 14:13 16:33 D-Dimer 1.28 H (<0.60) mg/L FEU POC Glucose (mg/dL) 197 H (75-99) mg/dL Lactate Dehydrogenase 330 H (120-246) U/L C-Reactive Protein 2.8 H (0.0-0.8) mg/dL 09/22/20 09/23/20 09/23/20 Range/Units 20:21 07:12 11:25 D-Dimer (<0.60) mg/L FEU POC Glucose (mg/dL) 244 H 153 H 190 H (75-99) mg/dL Lactate Dehydrogenase (120-246) U/L C-Reactive Protein (0.0-0.8) mg/dL Microbiology - Last 24 Hours (Table) 12/03/20 00:20 Blood Culture - Final Blood No Growth after 144 hours Assessment and Plan Plan: 1 Acute hypoxic respiratory failure secondary to acute CoVID 19 pneumonitis, currently on AirVo 60 L and 90% FiO2. Completed Remdesivir today. received convalescent plasma.no major improvement in his oxygenation. The patient is still requiring high flow oxygen 60 L. unchanged compared to yesterday. Chest x-ray is unchanged compared to the earlier chest was done on 09/20/2020. 2 History of asthma, currently inactive secondary to above 3 History of prostate cancer status post prostatectomy 4 Obesity 5 Lifelong nonsmoker 6 Hyperlipidemia 7 History of gastric esophageal reflux disease 8 History of asbestos 6 exposure while in the Plan: Switch to AirVo high flow and 60 L and 90% FiO2 Completed Remdesivir Completed convalescent plasma Remains on high-dose IV Solu-Medrol Lovenox for DVT prophylaxis. C x-ray from yesterday showed diffuse bilateral pulmonary infiltrates. I reviewed the repeat chest x-ray in the findings are the same. The white cell count is elevated because of systemic steroids. He is having some liquidy diarrhea and is going to be monitored Prognosis is guarded We'll continue to follow closely and make further recommendations based on his clinical status clinically unchanged. We'll continue to follow
[2020-09-23 17:18] LABS: Glucose,Whole Blood 236 mg/dL (75-99)
[2020-09-23 20:01] LABS: Glucose,Whole Blood 235 mg/dL (75-99)
[2020-09-23] MEDS: MELATONIN 5 MG TABLET PO SCH (20:13)
[2020-09-23] MEDS: INSULIN DETEMIR (LEVEMIR) 100 UNIT/ML SYR SQ SCH (20:13)
--- NOTE | 2020-09-23 20:25 | P.PN ---
Subjective This is a pleasant 59 years old male with multiple medical problems as below including hyperlipidemia, GERD, asthma, history of prostate cancer, PTSD and history of asthma asbestos exposure. He follows at the [facility]. He presents because of dyspnea and generalized weakness and muscle pain. No coughing or chest pain. Patient had persistent dyspnea despite using his inhalers No abdominal pain or fever, no diarrhea or change in bowel habits. No dysuria. No headache or weakness Vitals are unremarkable and patient is afebrile. He is currently saturating 92% on room air Admission labs showing leukocytosis of 15 K, d-dimer was elevated at 0.97, BMP and liver enzymes are unremarkable. Covid test is positive EKG showing sinus tachycardia at [address]-T changes CTA of the chest, [place] pulmonary interstitial pneumonia remained no evidence of pulmonary embolism Was given 1 dose of Solu-Medrol and 1 dose of Zithromax and ceftriaxone 09/17/2020 Patient in mild respiratory distress with significant coughing asking for something to help him, Robitussin ac is been added. He is on 2.5-3 L/m oxygen via nasal cannula Continue with dexamethasone and Lovenox and remdesivir Follow-up chest x-ray and inflammatory markers tomorrow 09/18/2020 Patient is breathing easily, patient is still coughing and not completely resolved. No chest pain. Saturating in the 90s with oxygen 3-5 L/m. Pulmonary team on the case and patient is found closely by Dr. Ocampo, Who ordered inflammatory markers and chest x-ray: Findings consistent with patient's history of pneumonia, progression compared to prior exam .Continue w ith treatment as per recommendation by pulmonary team, is currently on dexamethasone, Lovenox and remdesivir, also on vitamin C and zinc. Antibiotics were stopped by pulmonary team 09/22/2020 Patient was admitted with Covid pneumonia, he is a still on 50 L oxygen via high flow nasal cannula, patient reports some improvement compared to yesterday, he is not in significant respiratory distress, coughing is better controlled. He had 2 loose bowel movement today which is suspicious for Covid gastroenteritis but no abdominal pain or vomiting His d-dimer is slightly elevated at 1.28. Patient currently on vitamin C and zinc Solu-Medrol 60 mg and Lovenox 60 mg twice daily .patient also was placed on insulin 10 units at bedtime for better glucose control (Not home medication ) 09/23/2020 Patient is awake and alert. Sitting on a chair with a breathing machine next to him. Patient with similar respiratory distress as of yesterday. With some bothering cough. A still have diarrhea about twice per day. His oxygen requirements fluctuating between 50-60 L via high flow nasal cannula. Chest x-ray showed stable diffuse bilateral infiltrates. We will check labs and inflammatory markers tomorrow Patient to continue with same treatment O vitamin C, zinc, centimeters 60 mg and Lovenox 60 mg twice daily. Review of Systems CONSTITUTIONAL: No fever, no malaise, no fatigue. HEENT: No recent visual problems or hearing problems. Denied any sore throat. CARDIOVASCULAR: No orthopnea, PND, no palpitations, no syncope. PULMONARY: No chest wall tenderness, no hemoptysis. GASTROINTESTINAL: No diarrhea, no nausea, no vomiting, no abdominal pain. Normoactive bowel sounds. NEUROLOGICAL: No headaches, no weakness, no numbness. Active Medications Generic Name Dose Route Start Last Admin Trade Name Freq PRN Reason Stop Dose Admin Acetaminophen 650 mg 09/16/20 22:07 09/20/20 17:25 Acetaminophen Tab 325 Mg Tab PO 650 mg Q4HR PRN Administration Fever and/ or Pain Albuterol Sulfate 2 puff 09/16/20 07:19 Albuterol Hfa Inhaler INHALATION RT-QID PRN Shortness Of Breath Or Wheezing Albuterol Sulfate 2 puff 09/16/20 08:00 09/23/20 19:31 Albuterol Hfa Inhaler INHALATION 2 puff RT-QID [place] Administration Alprazolam 0.25 mg 09/20/20 12:29 09/21/20 20:45 Alprazolam 0.25 Mg Tab PO 0.25 mg TID PRN Administration Anxiety Ascorbic Acid 1,000 mg 09/16/20 09:00 09/23/20 09:41 Ascorbic Acid 500 Mg Tab PO 1,000 mg DAILY [place] Administration Atorvastatin Calcium 80 mg 09/16/20 09:00 09/23/20 09:41 Atorvastatin 80 Mg Tab PO 80 mg DAILY [place] Administration Benzonatate 200 mg 09/19/20 12:30 09/23/20 17:49 Benzonatate 100 Mg Cap PO 200 mg TID [place] Administration Bupropion HCl 150 mg 09/16/20 09:00 09/23/20 09:42 Bupropion 75 Mg Tab PO 150 mg DAILY [place] Administration Cholecalciferol 400 unit 09/17/20 09:00 09/23/20 09:42 Cholecalciferol 400 Unit Tab PO 400 unit DAILY [place] Administration Enoxaparin Sodium 60 mg 09/19/20 21:00 09/23/20 09:42 Enoxaparin 60 Mg/0.6 Ml Syringe SQ 60 mg BID [place] Administration Famotidine 40 mg 09/17/20 09:00 09/23/20 09:41 Famotidine 20 Mg Tab PO 40 mg DAILY [place] Administration Furosemide 20 mg 09/16/20 09:00 09/23/20 09:41 Furosemide 20 Mg Tab PO 20 mg DAILY [place] Administration Guaifenesin/Codeine Phosphate 10 ml 09/17/20 13:00 09/23/20 14:37 Guaifenesin-Coden 100-10mg/5ml 10 Ml Cup PO 10 ml Q6H [place] Administration Insulin Aspart 0 unit 09/20/20 21:00 09/23/20 18:02 Insulin Aspart (Novolog) 100 Unit/Ml Vial SQ 8 unit ACHS [place] Administration Protocol Insulin Detemir 10 unit 09/20/20 21:00 09/22/20 21:19 Insulin Detemir (Levemir) 100 Unit/Ml Syr SQ 10 unit HS [place] Administration Melatonin 5 mg 09/16/20 21:00 09/22/20 20:07 Melatonin 5 Mg Tablet PO 5 mg HS [place] Administration Methylprednisolone Sodium Succinate 60 mg 09/19/20 18:00 09/23/20 17:49 Methylprednisolone Sod Succi 125 Mg/2 Ml Vial IV 60 mg Q6HR [place] Administration Trazodone HCl 50 mg 09/16/20 23:38 09/18/20 21:45 Trazodone Hcl 50 Mg Tab PO 50 mg HS PRN Administration Insomnia Zinc Sulfate 220 mg 09/16/20 09:00 09/23/20 09:42 Zinc Sulfate 220 Mg Cap PO 220 mg DAILY [place] Administration Objective - Vital Signs Vital signs: Vital Signs Temp 98 F 09/23/20 16:50 Pulse 85 09/23/20 19:38 Resp 20 09/23/20 16:50 BP 164/84 09/23/20 16:50 Pulse Ox 90 L 09/23/20 16:50 Intake & Output 09/23/20 09/23/20 09/24/20 06:59 18:59 06:59 Intake Total 1090 240 Output Total 701 601 Balance 389 -361 Intake: Oral 1090 240 Output: Urine 700 600 Stool 1 1 Other: Voiding Method Urinal Urinal Urinal # Voids 4 0 # Bowel Movements 1 0 - Exam GENERAL: The patient is alert and oriented x3, not in any acute distress. Well developed, well nourished. HEENT: Pupils are round and equally reacting to light. EOMI. No scleral icterus. No conjunctival pallor. Normocephalic, atraumatic. No pharyngeal erythema. No thyromegaly. CARDIOVASCULAR: S1 and S2 present. No murmurs, rubs, or gallops. PULMONARY: Chest is clear to auscultation, no wheezing or crackles. ABDOMEN: Soft, nontender, nondistended, normoactive bowel sounds. No palpable organomegaly. MUSCULOSKELETAL: No joint swelling or deformity. EXTREMITIES: No cyanosis, clubbing, or pedal edema. NEUROLOGICAL: Gross neurological examination did not reveal any focal deficits. SKIN: No rashes. no petechiae. - Labs CBC & Chem 7: 09/21/20 06:20 09/21/20 06:20 Labs: Abnormal Lab Results - Last 24 Hours (Table) 09/22/20 09/22/20 09/23/20 Range/Units 14:13 20:21 07:12 POC Glucose (mg/dL) 244 H 153 H (75-99) mg/dL Lactate Dehydrogenase 330 H (120-246) U/L C-Reactive Protein 2.8 H (0.0-0.8) mg/dL 09/23/20 09/23/20 09/23/20 Range/Units 11:25 17:02 19:59 POC Glucose (mg/dL) 190 H 236 H 235 H (75-99) mg/dL Lactate Dehydrogenase (120-246) U/L C-Reactive Protein (0.0-0.8) mg/dL Microbiology - Last 24 Hours (Table) 09/17/20 00:20 Blood Culture - Final Blood No Growth after 144 hours Assessment and Plan Assessment: Bilateral Covid pneumonia Increase inflammatory markers secondary to above Covid gastroenteritis Hyperlipidemia History of GERD History of asthma, not an active issue History of prostate cancer PTSD History of asbestosis exposure Plan: This is a pleasant 59 years old male who presents because of Covid pneumonia. Continue with zinc sulfate, ascorbic acid and Lovenox. Follow-up recommendation by pulmonary service Labs and medication were reviewed.. Continue same treatment. Continue with symptomatic treatment. Resume home medication. Monitor lytes and vitals. DVT and GI prophylaxis. Further recommendations depends on the clinical course of the patient DVT prophylaxis: Subcutaneous Lovenox GI Prophylaxis: Ppi Prognosis is guarded
[2020-09-23] MEDS: ACETAMINOPHEN TAB 325 MG TAB PO PRN (23:57)
[2020-09-24] MEDS: ALPRAZolam 0.25 MG TAB PO PRN ×2 (00:02→21:33)
[2020-09-24] MEDS: methylPREDNISolone SOD SUCCI 125 MG/2 ML VIAL IV SCH ×4 (05:37→23:52)
[2020-09-24 06:53] LABS: Basophils # (A) 0.2 k/uL (0-0.2); Basophils % (A) 1 %; Eosinophils # (A) 0.2 k/uL (0-0.7); Eosinophils % (A) 1 %; HCT 46.8 % (39.0-53.0); HGB 15.3 gm/dL (13.0-17.5); Lymphocytes # (A) 0.3 k/uL (1.0-4.8); Lymphocytes % (A) 1 %; MCH 29.3 pg (25.0-35.0); MCHC 32.7 g/dL (31.0-37.0); MCV 89.6 fL (80.0-100.0); Mean Platelet Volume 7.4; Monocytes # (A) 1.1 k/uL (0-1.0); Monocytes % (A) 6 %; Neutrophils # (A) 17.1 k/uL (1.3-7.7); Neutrophils % (A) 90 %; Platelet Count 392 k/uL (150-450); RBC 5.23 m/uL (4.30-5.90); RDW 13.4 % (11.5-15.5)
[2020-09-24 07:13] LABS: Glucose,Whole Blood 149 mg/dL (75-99)
[2020-09-24] MEDS: ALBUTEROL HFA INHALER INHALATION SCH ×4 (08:13→21:00)
[2020-09-24] MEDS: ZINC SULFATE 220 MG CAP PO SCH (09:06)
[2020-09-24] MEDS: BENZONATATE 100 MG CAP PO SCH ×3 (09:06→21:33)
[2020-09-24] MEDS: INSULIN ASPART (NovoLOG) 100 UNIT/ML VIAL SQ SCH ×4 (09:06→20:37)
[2020-09-24] MEDS: guaiFENesin-Coden 100-10MG/5ML 10 ML CUP PO SCH ×3 (09:06→20:37)
[2020-09-24] MEDS: ATORVASTATIN 80 MG TAB PO SCH (09:06)
[2020-09-24] MEDS: ASCORBIC ACID 500 MG TAB PO SCH (09:06)
[2020-09-24] MEDS: buPROPion 75 MG TAB PO SCH (09:06)
[2020-09-24] MEDS: FUROSEMIDE 20 MG TAB PO SCH (09:06)
[2020-09-24] MEDS: CHOLECALCIFEROL 400 UNIT TAB PO SCH (09:06)
[2020-09-24] MEDS: ENOXAPARIN 60 MG/0.6 ML SYRINGE SQ SCH ×2 (09:07→21:18)
[2020-09-24 10:16] LABS: African American GFR (CKD) 114.1 (60.0-200.0); BUN/Creat Ratio 36.25 Ratio (12.00-20.00); Calcium 8.6 mg/dL (8.7-10.3); Non-African American GFR(CKD) 98.5 (60.0-200.0); Potassium 4.6 mmol/L (3.5-5.5)
[2020-09-24 10:37] LABS: Ferritin 237.4 ng/mL (22.0-322.0)
[2020-09-24 11:25] LABS: Glucose,Whole Blood 255 mg/dL (75-99)
--- NOTE | 2020-09-24 15:59 | P.PN ---
Subjective Progress Note Date: 09/24/20 Principal diagnosis: CoVID 19 pneumonitis Patient is seen today 09/17/2020 in follow-up on the regular medical floor. Remains awake and alert in no acute distress. He tested positive on 09/15/2020. He was initiated on Remdesivir. He is doing a bit better today compared to . He did have a fever of 102 last evening. Currently afebrile. Hemodynamically stable. Maintaining O2 saturation in the low 90s on 3 L/m per nasal cannula. He remains on Lovenox, dexamethasone, vitamin C, vitamin D, Pepcid, melatonin, zinc. Patient is seen today 09/18/2020 in follow-up on the regular medical floor. He is currently resting comfortably in bed. Awake and alert in no acute distress. Maintaining O2 saturations in the 90s on 5 L nasal cannula. Chest x-ray continues to show bilateral airspace disease consistent with pneumonia. D-dimer 1.29. He remains on Lovenox, dexamethasone, vitamin C, vitamin D, Pepcid, melatonin, zinc. This is day #3 of Remdesivir. The patient is seen today 09/19/2020 in follow-up on the regular medical floor. He is currently up ambulating in his room. Awake and alert in no acute distress. He continues to have a dry nonproductive cough. No on 15 L high flow nasal cannula to maintain O2 saturation in the 90s. Afebrile. White count 19.1. Hemoglobin 14.9. Lymphocytes 0.7. D-dimer 1.17. Sodium 137. Potassium is 4.3. Creatinine 0.83. LDH 834. C-reactive protein 82.5. This is day #4 of Remdesivir. He is continued on Lovenox my dexamethasone, vitamin supplements. Patient is seen today 09/20/2020 in follow-up on the regular medical floor. He is awake and alert. He continues to require high levels of oxygen. He is c urrently on a 15 L high flow along with a nonrebreather mask with O2 saturations in the mid 80s. He was converted toAirVo high flow oxygen device at 60 L and 90% FiO2. Current O2 saturation 90%. He's been afebrile. Hemodynamically stable. White count 17.6. Hemoglobin 15.3. Lymphocytes 0.5. Sodium 139. Potassium 4.5. Creatinine 0.8. Convalescent plasma was ordered yesterday. Still pending. He completed his course of Remdesivir today. Remains on IV Solu-Medrol. Lovenox. Vitamin supplements. The patient is seen today 09/24/2020 in follow-up on the regular medical floor. He is currently resting comfortably in bed. Awake and alert in no acute distress. He is really not much improved as far as his oxygenation requirements. Still remaining on AirVo at 60 L and 90% FiO2. Maintaining O2 saturation in the high 80s. He's been afebrile. Hemodynamically stable. No fever chills or night sweats. No nausea, vomiting or diarrhea. He has completed his course of Remdesivir. Received convalescent plasma. Remains on IV Solu-Medrol, Lovenox 60 mg twice a day, vitamin supplements. White count 19.0. Hemoglobin 15.3. D-dimer 1.32. Sodium 135. Potassium 4.6. Creatinine 0.8. Ferritin 237. LDH 340. C-reactive protein 1.0. Objective - Vital Signs Vital signs: Vital Signs Temp 98.1 F 09/24/20 11:00 Pulse 83 09/24/20 11:00 Resp 17 09/24/20 11:00 BP 142/75 09/24/20 11:00 Pulse Ox 89 L 09/24/20 11:00 Intake & Output 09/23/20 09/24/20 09/24/20 18:59 06:59 18:59 Intake Total 240 Output Total 601 1 Balance -361 -1 Intake: Oral 240 Output: Urine 600 Stool 1 1 Other: Voiding Method Urinal Urinal Urinal # Voids 3 # Bowel Movements 1 1 - Exam GENERAL EXAM: Alert, obese, pleasant 59-year-old gentleman, remains on AirVo high flow oxygen at 60 L and 90% FiO2, comfortable in no apparent distress. HEAD: Normocephalic. EYES: Normal reaction of pupils, equal size. NOSE: Clear with pink turbinates. THROAT: No erythema or exudates. NECK: No masses, no JVD. CHEST: No chest wall deformity. LUNGS: Equal air entry with bilateral scattered rhonchi. CVS: S1 and S2 normal with no audible murmur, regular rhythm. ABDOMEN: No hepatosplenomegaly, normal bowel sounds, no guarding or rigidity. SPINE: No scoliosis or deformity SKIN: No rashes CENTRAL NERVOUS SYSTEM: No focal deficits, tone is normal in all 4 extremities. EXTREMITIES: There is no peripheral edema. No clubbing, no cyanosis. Pe ripheral pulses are intact. - Labs CBC & Chem 7: 09/24/20 06:31 09/24/20 06:31 Labs: Abnormal Lab Results - Last 24 Hours (Table) 09/23/20 09/23/20 09/24/20 Range/Units 17:02 19:59 06:31 WBC 19.0 H (3.8-10.6) k/uL Neutrophils # 17.1 H (1.3-7.7) k/uL Lymphocytes # 0.3 L (1.0-4.8) k/uL Monocytes # 1.1 H (0-1.0) k/uL D-Dimer (<0.60) mg/L FEU BUN (9.0-27.0) mg/dL BUN/Creatinine Ratio (12.00-20.00) Ratio Glucose (70-110) mg/dL POC Glucose (mg/dL) 236 H 235 H (75-99) mg/dL Calcium (8.7-10.3) mg/dL Lactate Dehydrogenase (120-246) U/L C-Reactive Protein (0.0-0.8) mg/dL 09/24/20 09/24/20 09/24/20 Range/Units 06:31 06:31 07:12 WBC (3.8-10.6) k/uL Neutrophils # (1.3-7.7) k/uL Lymphocytes # (1.0-4.8) k/uL Monocytes # (0-1.0) k/uL D-Dimer 1.32 H (<0.60) mg/L FEU BUN 29.0 H (9.0-27.0) mg/dL BUN/Creatinine Ratio 36.25 H (12.00-20.00) Ratio Glucose 174 H (70-110) mg/dL POC Glucose (mg/dL) 149 H (75-99) mg/dL Calcium 8.6 L (8.7-10.3) mg/dL Lactate Dehydrogenase 340 H (120-246) U/L C-Reactive Protein 1.0 H (0.0-0.8) mg/dL 09/24/20 Range/Units 11:24 WBC (3.8-10.6) k/uL Neutrophils # (1.3-7.7) k/uL Lymphocytes # (1.0-4.8) k/uL Monocytes # (0-1.0) k/uL D-Dimer (<0.60) mg/L FEU BUN (9.0-27.0) mg/dL BUN/Creatinine Ratio (12.00-20.00) Ratio Glucose (70-110) mg/dL POC Glucose (mg/dL) 255 H (75-99) mg/dL Calcium (8.7-10.3) mg/dL Lactate Dehydrogenase (120-246) U/L C-Reactive Protein (0.0-0.8) mg/dL Assessment and Plan Assessment: 1 Acute hypoxic respiratory failure secondary to acute CoVID 19 pneumonitis, currently on AirVo 60 L and 90% FiO2. Completed Remdesivir, received convalescent plasma. Remains on high-dose Lovenox, IV Solu-Medrol, and vitamin supplements. 2 History of asthma, currently inactive secondary to above 3 History of prostate cancer status post prostatectomy 4 Obesity 5 Lifelong nonsmoker 6 Hyperlipidemia 7 History of gastric esophageal reflux disease 8 History of asbestos 6 exposure while in the Plan: The patient was seen and evaluated by Dr. Finch Continue AirVo high flow and 60 L and 90% FiO2 Completed Remdesivir, received convalescent plasma Remains on high-dose IV Solu-Medrol, Lovenox and vitamin supplements Condition remained stable but guarded Titrate down the FiO2 as tolerated Repeat chest x-ray in a.m. We'll continue to follow closely and make further recommendations based on his clinical status I, the cosigning physician, performed a history & physical examination of the patient. Lungs sounds with few scattered rhonchi. Maintaining good O2 saturations in the 90s on AirVo high flow at 60 L and 90% FiO2. I discussed the assessment and plan of care with my nurse practitioner, Pauly Grayson. I attest to the above note as dictated by her.
[2020-09-24 17:10] LABS: Glucose,Whole Blood 227 mg/dL (75-99)
[2020-09-24 20:33] LABS: Glucose,Whole Blood 228 mg/dL (75-99)
[2020-09-24] MEDS: MELATONIN 5 MG TABLET PO SCH (20:37)
[2020-09-24] MEDS: INSULIN DETEMIR (LEVEMIR) 100 UNIT/ML SYR SQ SCH (21:18)
--- NOTE | 2020-09-24 23:18 | P.PN ---
Subjective This is a pleasant 59 years old male with multiple medical problems as below including hyperlipidemia, GERD, asthma, history of prostate cancer, PTSD and history of asthma asbestos exposure. He follows at the [facility]. He presents because of dyspnea and generalized weakness and muscle pain. No coughing or chest pain. Patient had persistent dyspnea despite using his inhalers No abdominal pain or fever, no diarrhea or change in bowel habits. No dysuria. No headache or weakness Vitals are unremarkable and patient is afebrile. He is currently saturating 92% on room air Admission labs showing leukocytosis of 15 K, d-dimer was elevated at 0.97, BMP and liver enzymes are unremarkable. Covid test is positive EKG showing sinus tachycardia at [address]-T changes CTA of the chest, [place] pulmonary interstitial pneumonia remained no evidence of pulmonary embolism Was given 1 dose of Solu-Medrol and 1 dose of Zithromax and ceftriaxone 09/17/2020 Patient in mild respiratory distress with significant coughing asking for something to help him, Robitussin ac is been added. He is on 2.5-3 L/m oxygen via nasal cannula Continue with dexamethasone and Lovenox and remdesivir Follow-up chest x-ray and inflammatory markers tomorrow 09/18/2020 Patient is breathing easily, patient is still coughing and not completely resolved. No chest pain. Saturating in the 90s with oxygen 3-5 L/m. Pulmonary team on the case and patient is found closely by Dr. Ocampo, Who ordered inflammatory markers and chest x-ray: Findings consistent with patient's history of pneumonia, progression compared to prior exam .Continue w ith treatment as per recommendation by pulmonary team, is currently on dexamethasone, Lovenox and remdesivir, also on vitamin C and zinc. Antibiotics were stopped by pulmonary team 09/22/2020 Patient was admitted with Covid pneumonia, he is a still on 50 L oxygen via high flow nasal cannula, patient reports some improvement compared to yesterday, he is not in significant respiratory distress, coughing is better controlled. He had 2 loose bowel movement today which is suspicious for Covid gastroenteritis but no abdominal pain or vomiting His d-dimer is slightly elevated at 1.28. Patient currently on vitamin C and zinc Solu-Medrol 60 mg and Lovenox 60 mg twice daily .patient also was placed on insulin 10 units at bedtime for better glucose control (Not home medication ) 09/23/2020 Patient is awake and alert. Sitting on a chair with a breathing machine next to him. Patient with similar respiratory distress as of yesterday. With some bothering cough. A still have diarrhea about twice per day. His oxygen requirements fluctuating between 50-60 L via high flow nasal cannula. Chest x-ray showed stable diffuse bilateral infiltrates. We will check labs and inflammatory markers tomorrow Patient to continue with same treatment O vitamin C, zinc, centimeters 60 mg and Lovenox 60 mg twice daily. 09/24/2020 Patient remains in respiratory distress his breathing feels harder today with Ceasar course coughing. Also he is having 4 bouts of diarrhea through the day. He is a still on 60 L oxygen via high flow nasal cannula Leukocytosis 19 K. BMP stable. Lactate dehydrogenase slightly elevated at 340 as well as C-reactive protein at 1.0. Normal procalcitonin at 0.08 Pulmonary service on the case Review of Systems CONSTITUTIONAL: No fever, no malaise, no fatigue. HEENT: No recent visual problems or hearing problems. Denied any sore throat. CARDIOVASCULAR: No orthopnea, PND, no palpitations, no syncope. PULMONARY: No chest wall tenderness, no hemoptysis. GASTROINTESTINAL: No diarrhea, no nausea, no vomiting, no abdominal pain. Normoactive bowel sounds. NEUROLOGICAL: No headaches, no weakness, no numbness. Active Medications Generic Name Dose Route Start Last Admin Trade Name Freq PRN Reason Stop Dose Admin Acetaminophen 650 mg 09/16/20 22:07 09/23/20 23:57 Acetaminophen Tab 325 Mg Tab PO 650 mg Q4HR PRN Administration Fever and/ or Pain Albuterol Sulfate 2 puff 09/16/20 07:19 Albuterol Hfa Inhaler INHALATION RT-QID PRN Shortness Of Breath Or Wheezing Albuterol Sulfate 2 puff 09/16/20 08:00 09/24/20 21:00 Albuterol Hfa Inhaler INHALATION 2 puff RT-QID [place] Administration Alprazolam 0.25 mg 09/20/20 12:29 09/24/20 21:33 Alprazolam 0.25 Mg Tab PO 0.25 mg TID PRN Administration Anxiety Ascorbic Acid 1,000 mg 09/16/20 09:00 09/24/20 09:06 Ascorbic Acid 500 Mg Tab PO 1,000 mg DAILY [place] Administration Atorvastatin Calcium 80 mg 09/16/20 09:00 09/24/20 09:06 Atorvastatin 80 Mg Tab PO 80 mg DAILY [place] Administration Benzonatate 200 mg 09/19/20 12:30 09/24/20 21:33 Benzonatate 100 Mg Cap PO 200 mg TID [place] Administration Bupropion HCl 150 mg 09/16/20 09:00 09/24/20 09:06 Bupropion 75 Mg Tab PO 150 mg DAILY [place] Administration Cholecalciferol 400 unit 09/17/20 09:00 09/24/20 09:06 Cholecalciferol 400 Unit Tab PO 400 unit DAILY [place] Administration Enoxaparin Sodium 60 mg 09/19/20 21:00 09/24/20 21:18 Enoxaparin 60 Mg/0.6 Ml Syringe SQ 60 mg BID [place] Administration Famotidine 40 mg 09/17/20 09:00 09/23/20 09:41 Famotidine 20 Mg Tab PO 40 mg DAILY [place] Administration Furosemide 20 mg 09/16/20 09:00 09/24/20 09:06 Furosemide 20 Mg Tab PO 20 mg DAILY [place] Administration Guaifenesin/Codeine Phosphate 10 ml 09/17/20 13:00 09/24/20 20:37 Guaifenesin-Coden 100-10mg/5ml 10 Ml Cup PO 10 ml Q6H [place] Administration Insulin Aspart 0 unit 09/20/20 21:00 09/24/20 20:37 Insulin Aspart (Novolog) 100 Unit/Ml Vial SQ 7 unit ACHS [place] Administration Protocol Insulin Detemir 10 unit 09/20/20 21:00 09/24/20 21:18 Insulin Detemir (Levemir) 100 Unit/Ml Syr SQ 10 unit HS [place] Administration Melatonin 5 mg 09/16/20 21:00 09/24/20 20:37 Melatonin 5 Mg Tablet PO 5 mg HS [place] Administration Methylprednisolone Sodium Succinate 60 mg 09/19/20 18:00 09/24/20 17:19 Methylprednisolone Sod Succi 125 Mg/2 Ml Vial IV 60 mg Q6HR [place] Administration Trazodone HCl 50 mg 09/16/20 23:38 09/18/20 21:45 Trazodone Hcl 50 Mg Tab PO 50 mg HS PRN Administration Insomnia Zinc Sulfate 220 mg 09/16/20 09:00 12/10/20 09:06 Zinc Sulfate 220 Mg Cap PO 220 mg DAILY [place] Administration Objective - Vital Signs Vital signs: Vital Signs Temp 98.6 F 09/24/20 16:55 Pulse 91 09/24/20 16:55 Resp 18 09/24/20 16:55 BP 185/77 09/24/20 16:55 Pulse Ox 90 L 09/24/20 16:55 Intake & Output 09/24/20 09/24/20 09/25/20 06:59 18:59 06:59 Intake Total 360 Output Total 1 Balance 359 Intake: Oral 360 Output: Stool 1 Other: Voiding Method Urinal Urinal # Voids 3 2 # Bowel Movements 1 1 - Exam GENERAL: The patient is alert and oriented x3, not in any acute distress. Well developed, well nourished. HEENT: Pupils are round and equally reacting to light. EOMI. No scleral icterus. No conjunctival pallor. Normocephalic, atraumatic. No pharyngeal erythema. No thyromegaly. CARDIOVASCULAR: S1 and S2 present. No murmurs, rubs, or gallops. PULMONARY: Chest is clear to auscultation, no wheezing or crackles. ABDOMEN: Soft, nontender, nondistended, normoactive bowel sounds. No palpable organomegaly. MUSCULOSKELETAL: No joint swelling or deformity. EXTREMITIES: No cyanosis, clubbing, or pedal edema. NEUROLOGICAL: Gross neurological examination did not reveal any focal deficits. SKIN: No rashes. no petechiae. - Labs CBC & Chem 7: 09/24/20 06:31 09/24/20 06:31 Labs: Abnormal Lab Results - Last 24 Hours (Table) 09/24/20 09/24/20 09/24/20 Range/Units 06:31 06:31 06:31 WBC 19.0 H (3.8-10.6) k/uL Neutrophils # 17.1 H (1.3-7.7) k/uL Lymphocytes # 0.3 L (1.0-4.8) k/uL Monocytes # 1.1 H (0-1.0) k/uL D-Dimer 1.32 H (<0.60) mg/L FEU BUN 29.0 H (9.0-27.0) mg/dL BUN/Creatinine Ratio 36.25 H (12.00-20.00) Ratio Glucose 174 H (70-110) mg/dL POC Glucose (mg/dL) (75-99) mg/dL Calcium 8.6 L (8.7-10.3) mg/dL Lactate Dehydrogenase 340 H (120-246) U/L C-Reactive Protein 1.0 H (0.0-0.8) mg/dL 09/24/20 09/24/20 09/24/20 Range/Units 07:12 11:24 17:08 WBC (3.8-10.6) k/uL Neutrophils # (1.3-7.7) k/uL Lymphocytes # (1.0-4.8) k/uL Monocytes # (0-1.0) k/uL D-Dimer (<0.60) mg/L FEU BUN (9.0-27.0) mg/dL BUN/Creatinine Ratio (.00-.00) Ratio Glucose (70-110) mg/dL POC Glucose (mg/dL) 149 H 255 H 227 H (75-99) mg/dL Calcium (8.7-10.3) mg/dL Lactate Dehydrogenase (120-246) U/L C-Reactive Protein (0.0-0.8) mg/dL 09/24/20 Range/Units 20:32 WBC (3.8-10.6) k/uL Neutrophils # (1.3-7.7) k/uL Lymphocytes # (1.0-4.8) k/uL Monocytes # (0-1.0) k/uL D-Dimer (<0.60) mg/L FEU BUN (9.0-27.0) mg/dL BUN/Creatinine Ratio (.00-.00) Ratio Glucose (70-110) mg/dL POC Glucose (mg/dL) 228 H (75-99) mg/dL Calcium (8.7-10.3) mg/dL Lactate Dehydrogenase (120-246) U/L C-Reactive Protein (0.0-0.8) mg/dL Assessment and Plan Assessment: Bilateral Covid pneumonia Increase inflammatory markers secondary to above Covid gastroenteritis Hyperlipidemia History of GERD History of asthma, not an active issue History of prostate cancer PTSD History of asbestosis exposure Plan: This is a pleasant 59 years old male who presents because of Covid pneumonia. Continue with zinc sulfate, ascorbic acid and Lovenox. Follow-up recommendation by pulmonary service Labs and medication were reviewed.. Continue same treatment. Continue with symptomatic treatment. Resume home medication. Monitor lytes and vitals. DVT and GI prophylaxis. Further recommendations depends on the clinical course of the patient DVT prophylaxis: Subcutaneous Lovenox GI Prophylaxis: Ppi Prognosis is guarded
[2020-09-25] MEDS: guaiFENesin-Coden 100-10MG/5ML 10 ML CUP PO SCH ×4 (01:59→20:39)
[2020-09-25] MEDS: methylPREDNISolone SOD SUCCI 125 MG/2 ML VIAL IV SCH ×3 (05:44→18:00)
[2020-09-25 07:11] LABS: Glucose,Whole Blood 158 mg/dL (75-99)
[2020-09-25] MEDS: ALBUTEROL HFA INHALER INHALATION SCH ×4 (07:47→19:28)
[2020-09-25] MEDS: FAMOTIDINE 20 MG TAB PO SCH (07:59)
[2020-09-25] MEDS: INSULIN ASPART (NovoLOG) 100 UNIT/ML VIAL SQ SCH ×4 (07:59→20:52)
[2020-09-25] MEDS: buPROPion 75 MG TAB PO SCH (07:59)
[2020-09-25] MEDS: ASCORBIC ACID 500 MG TAB PO SCH (07:59)
[2020-09-25] MEDS: CHOLECALCIFEROL 400 UNIT TAB PO SCH (07:59)
[2020-09-25] MEDS: ENOXAPARIN 60 MG/0.6 ML SYRINGE SQ SCH ×2 (07:59→20:40)
[2020-09-25] MEDS: BENZONATATE 100 MG CAP PO SCH ×3 (07:59→20:40)
[2020-09-25] MEDS: ZINC SULFATE 220 MG CAP PO SCH (07:59)
[2020-09-25] MEDS: ATORVASTATIN 80 MG TAB PO SCH (07:59)
[2020-09-25] MEDS: FUROSEMIDE 20 MG TAB PO SCH (08:00)
--- NOTE | 2020-09-25 09:27 | XR ---
EXAMINATION TYPE: XR chest 1V portable DATE OF EXAM: 09/25/2020 COMPARISON: Prior chest x-ray 09/23/2020 HISTORY: Covid pneumonia TECHNIQUE: Single frontal view of the chest is obtained. FINDINGS: Bilateral airspace disease shows a similar appearance. Heart is enlarged. No evident pneum othorax or pleural effusion. Postop changes noted to the left shoulder. IMPRESSION: Correlate for bilateral pneumonia versus edema. Cardiomegaly.
[2020-09-25 10:52] LABS: Glucose,Whole Blood 147 mg/dL (75-99)
--- NOTE | 2020-09-25 13:31 | P.PN ---
Subjective This is a pleasant 59 years old male with multiple medical problems as below including hyperlipidemia, GERD, asthma, history of prostate cancer, PTSD and history of asthma asbestos exposure. He follows at the [facility]. He presents because of dyspnea and generalized weakness and muscle pain. No coughing or chest pain. Patient had persistent dyspnea despite using his inhalers No abdominal pain or fever, no diarrhea or change in bowel habits. No dysuria. No headache or weakness Vitals are unremarkable and patient is afebrile. He is currently saturating 92% on room air Admission labs showing leukocytosis of 15 K, d-dimer was elevated at 0.97, BMP and liver enzymes are unremarkable. Covid test is positive EKG showing sinus tachycardia at [address]-T changes CTA of the chest, [place] pulmonary interstitial pneumonia remained no evidence of pulmonary embolism Was given 1 dose of Solu-Medrol and 1 dose of Zithromax and ceftriaxone 09/17/2020 Patient in mild respiratory distress with significant coughing asking for something to help him, Robitussin ac is been added. He is on 2.5-3 L/m oxygen via nasal cannula Continue with dexamethasone and Lovenox and remdesivir Follow-up chest x-ray and inflammatory markers tomorrow 09/18/2020 Patient is breathing easily, patient is still coughing and not completely resolved. No chest pain. Saturating in the 90s with oxygen 3-5 L/m. Pulmonary team on the case and patient is found closely by Dr. Ocampo, Who ordered inflammatory markers and chest x-ray: Findings consistent with patient's history of pneumonia, progression compared to prior exam .Continue w ith treatment as per recommendation by pulmonary team, is currently on dexamethasone, Lovenox and remdesivir, also on vitamin C and zinc. Antibiotics were stopped by pulmonary team 09/22/2020 Patient was admitted with Covid pneumonia, he is a still on 50 L oxygen via high flow nasal cannula, patient reports some improvement compared to yesterday, he is not in significant respiratory distress, coughing is better controlled. He had 2 loose bowel movement today which is suspicious for Covid gastroenteritis but no abdominal pain or vomiting His d-dimer is slightly elevated at 1.28. Patient currently on vitamin C and zinc Solu-Medrol 60 mg and Lovenox 60 mg twice daily .patient also was placed on insulin 10 units at bedtime for better glucose control (Not home medication ) 09/23/2020 Patient is awake and alert. Sitting on a chair with a breathing machine next to him. Patient with similar respiratory distress as of yesterday. With some bothering cough. A still have diarrhea about twice per day. His oxygen requirements fluctuating between 50-60 L via high flow nasal cannula. Chest x-ray showed stable diffuse bilateral infiltrates. We will check labs and inflammatory markers tomorrow Patient to continue with same treatment O vitamin C, zinc, centimeters 60 mg and Lovenox 60 mg twice daily. 09/24/2020 Patient remains in respiratory distress his breathing feels harder today with Ceasar course coughing. Also he is having 4 bouts of diarrhea through the day. He is a still on 60 L oxygen via high flow nasal cannula Leukocytosis 19 K. BMP stable. Lactate dehydrogenase slightly elevated at 340 as well as C-reactive protein at 1.0. Normal procalcitonin at 0.08 Pulmonary service on the case 09/25/2020 Patient breathing is easier today, and saturating 90% on 50 L via high flow nasal cannula. His still have diarrhea about 4 times per day Sugar is controlled Continue with same treatment as above, vitamin C, zinc, centimeters 60 mg and Lovenox 60 mg twice daily. Review of Systems CONSTITUTIONAL: No fever, no malaise, no fatigue. HEENT: No recent visual problems or hearing problems. Denied any sore throat. CARDIOVASCULAR: No orthopnea, PND, no palpitations, no syncope. PULMONARY: No chest wall tenderness, no hemoptysis. GASTROINTESTINAL: No diarrhea, no nausea, no vomiting, no abdominal pain. Normoactive bowel sounds. NEUROLOGICAL: No headaches, no weakness, no numbness. Active Medications Generic Name Dose Route Start Last Admin Trade Name Jose Jq PRN Reason Stop Dose Admin Acetaminophen 650 mg 09/16/20 22:07 09/23/20 23:57 Acetaminophen Tab 325 Mg Tab PO 650 mg Q4HR PRN Administration Fever and/ or Pain Albuterol Sulfate 2 puff 09/16/20 07:19 Albuterol Hfa Inhaler INHALATION RT-QID PRN Shortness Of Breath Or Wheezing Albuterol Sulfate 2 puff 09/16/20 08:00 09/24/20 21:00 Albuterol Hfa Inhaler INHALATION 2 puff RT-QID [place] Administration Alprazolam 0.25 mg 09/20/20 12:29 09/24/20 21:33 Alprazolam 0.25 Mg Tab PO 0.25 mg TID PRN Administration Anxiety Ascorbic Acid 1,000 mg 09/16/20 09:00 09/24/20 09:06 Ascorbic Acid 500 Mg Tab PO 1,000 mg DAILY [place] Administration Atorvastatin Calcium 80 mg 09/16/20 09:00 09/24/20 09:06 Atorvastatin 80 Mg Tab PO 80 mg DAILY [place] Administration Benzonatate 200 mg 09/19/20 12:30 09/24/20 21:33 Benzonatate 100 Mg Cap PO 200 mg TID [place] Administration Bupropion HCl 150 mg 09/16/20 09:00 09/24/20 09:06 Bupropion 75 Mg Tab PO 150 mg DAILY [place] Administration Cholecalciferol 400 unit 09/17/20 09:00 09/24/20 09:06 Cholecalciferol 400 Unit Tab PO 400 unit DAILY [place] Administration Enoxaparin Sodium 60 mg 09/19/20 21:00 09/24/20 21:18 Enoxaparin 60 Mg/0.6 Ml Syringe SQ 60 mg BID [place] Administration Famotidine 40 mg 09/17/20 09:00 09/23/20 09:41 Famotidine 20 Mg Tab PO 40 mg DAILY [place] Administration Furosemide 20 mg 09/16/20 09:00 09/24/20 09:06 Furosemide 20 Mg Tab PO 20 mg DAILY [place] Administration Guaifenesin/Codeine Phosphate 10 ml 09/17/20 13:00 09/24/20 20:37 Guaifenesin-Coden 100-10mg/5ml 10 Ml Cup PO 10 ml Q6H [place] Administration Insulin Aspart 0 unit 09/20/20 21:00 09/24/20 20:37 Insulin Aspart (Novolog) 100 Unit/Ml Vial SQ 7 unit ACHS [place] Administration Protocol Insulin Detemir 10 unit 09/20/20 21:00 09/24/20 21:18 Insulin Detemir (Levemir) 100 Unit/Ml Syr SQ 10 unit HS [place] Administration Melatonin 5 mg 09/16/20 21:00 09/24/20 20:37 Melatonin 5 Mg Tablet PO 5 mg HS [place] Administration Methylprednisolone Sodium Succinate 60 mg 09/19/20 18:00 09/24/20 17:19 Methylprednisolone Sod Succi 125 Mg/2 Ml Vial IV 60 mg Q6HR [place] Administration Trazodone HCl 50 mg 09/16/20 23:38 09/18/20 21:45 Trazodone Hcl 50 Mg Tab PO 50 mg HS PRN Administration Insomnia Zinc Sulfate 220 mg 09/16/20 09:00 09/24/20 09:06 Zinc Sulfate 220 Mg Cap PO 220 mg DAILY [place] Administration Objective - Vital Signs Vital signs: Vital Signs Temp 98.7 F 09/25/20 11:00 Pulse 70 09/25/20 11:00 Resp 18 09/25/20 11:00 BP 137/65 09/25/20 11:00 Pulse Ox 90 L 09/25/20 11:00 Intake & Output 09/24/20 09/25/20 09/25/20 18:59 06:59 18:59 Intake Total 360 600 360 Output Total 1 600 1 Balance 359 0 359 Intake: Oral 360 600 360 Output: Urine 600 Stool 1 1 Other: Voiding Method Urinal Urinal Urinal # Voids 2 1 # Bowel Movements 1 1 - Exam GENERAL: The patient is alert and oriented x3, not in any acute distress. Well developed, well nourished. HEENT: Pupils are round and equally reacting to light. EOMI. No scleral icterus. No conjunctival pallor. Normocephalic, atraumatic. No pharyngeal erythema. No thyromegaly. CARDIOVASCULAR: S1 and S2 present. No murmurs, rubs, or gallops. PULMONARY: Chest is clear to auscultation, no wheezing or crackles. ABDOMEN: Soft, nontender, nondistended, normoactive bowel sounds. No palpable organomegaly. MUSCULOSKELETAL: No joint swelling or deformity. EXTREMITIES: No cyanosis, clubbing, or pedal edema. NEUROLOGICAL: Gross neurological examination did not reveal any focal deficits. SKIN: No rashes. no petechiae. - Labs CBC & Chem 7: 09/24/20 06:31 09/24/20 06:31 Labs: Abnormal Lab Results - Last 24 Hours (Table) 09/24/20 09/24/20 09/25/20 Range/Units 17:08 20:32 07:09 POC Glucose (mg/dL) 227 H 228 H 158 H (75-99) mg/dL 09/25/20 Range/Units 10:51 POC Glucose (mg/dL) 147 H (75-99) mg/dL Assessment and Plan Assessment: Bilateral Covid pneumonia Increase inflammatory markers secondary to above Covid gastroenteritis Hyperlipidemia History of GERD History of asthma, not an active issue History of prostate cancer PTSD History of asbestosis exposure Plan: This is a pleasant 59 years old male who presents because of Covid pneumonia. Continue with zinc sulfate, ascorbic acid and Lovenox. Follow-up recommendation by pulmonary service Labs and medication were reviewed.. Continue same treatment. Continue with symptomatic treatment. Resume home medication. Monitor lytes and vitals. DVT and GI prophylaxis. Further recommendations depends on the clinical course of the patient DVT prophylaxis: Subcutaneous Lovenox GI Prophylaxis: Ppi Prognosis is guarded
[2020-09-25 17:16] LABS: Glucose,Whole Blood 213 mg/dL (75-99)
--- NOTE | 2020-09-25 17:24 | P.PN ---
Subjective Progress Note Date: 09/25/20 Principal diagnosis: CoVID 19 pneumonitis Patient is seen today 09/17/2020 in follow-up on the regular medical floor. Remains awake and alert in no acute distress. He tested positive on 09/15/2020. He was initiated on Remdesivir. He is doing a bit better today compared to . He did have a fever of 102 last evening. Currently afebrile. Hemodynamically stable. Maintaining O2 saturation in the low 90s on 3 L/m per nasal cannula. He remains on Lovenox, dexamethasone, vitamin C, vitamin D, Pepcid, melatonin, zinc. Patient is seen today 09/18/2020 in follow-up on the regular medical floor. He is currently resting comfortably in bed. Awake and alert in no acute distress. Maintaining O2 saturations in the 90s on 5 L nasal cannula. Chest x-ray continues to show bilateral airspace disease consistent with pneumonia. D-dimer 1.29. He remains on Lovenox, dexamethasone, vitamin C, vitamin D, Pepcid, melatonin, zinc. This is day #3 of Remdesivir. The patient is seen today 09/19/2020 in follow-up on the regular medical floor. He is currently up ambulating in his room. Awake and alert in no acute distress. He continues to have a dry nonproductive cough. No on 15 L high flow nasal cannula to maintain O2 saturation in the 90s. Afebrile. White count 19.1. Hemoglobin 14.9. Lymphocytes 0.7. D-dimer 1.17. Sodium 137. Potassium is 4.3. Creatinine 0.83. LDH 834. C-reactive protein 82.5. This is day #4 of Remdesivir. He is continued on Lovenox my dexamethasone, vitamin supplements. Patient is seen today 09/20/2020 in follow-up on the regular medical floor. He is awake and alert. He continues to require high levels of oxygen. He is c urrently on a 15 L high flow along with a nonrebreather mask with O2 saturations in the mid 80s. He was converted toAirVo high flow oxygen device at 60 L and 90% FiO2. Current O2 saturation 90%. He's been afebrile. Hemodynamically stable. White count 17.6. Hemoglobin 15.3. Lymphocytes 0.5. Sodium 139. Potassium 4.5. Creatinine 0.8. Convalescent plasma was ordered yesterday. Still pending. He completed his course of Remdesivir today. Remains on IV Solu-Medrol. Lovenox. Vitamin supplements. The patient is seen today 09/24/2020 in follow-up on the regular medical floor. He is currently resting comfortably in bed. Awake and alert in no acute distress. He is really not much improved as far as his oxygenation requirements. Still remaining on AirVo at 60 L and 90% FiO2. Maintaining O2 saturation in the high 80s. He's been afebrile. Hemodynamically stable. No fever chills or night sweats. No nausea, vomiting or diarrhea. He has completed his course of Remdesivir. Received convalescent plasma. Remains on IV Solu-Medrol, Lovenox 60 mg twice a day, vitamin supplements. White count 19.0. Hemoglobin 15.3. D-dimer 1.32. Sodium 135. Potassium 4.6. Creatinine 0.8. Ferritin 237. LDH 340. C-reactive protein 1.0. The patient is seen today 09/25/2020 in follow-up on the regular medical floor. He is up ambulating in his room. Awake and alert in no acute distress. He remains on the airflow at 55 L and 90% FiO2 to maintain O2 saturations in the 90s. He is afebrile. He is feeling a bit better today compared to yesterday. Chest x-ray continues to show bilateral pneumonia versus edema. Cardiomegaly. He remains on IV Solu-Medrol, Lovenox, vitamin supplements. Objective - Vital Signs Vital signs: Vital Signs Temp 97.9 F 09/25/20 16:37 Pulse 86 09/25/20 16:37 Resp 17 09/25/20 16:37 BP 164/79 09/25/20 16:37 Pulse Ox 92 L 09/25/20 16:37 Intake & Output 09/24/20 09/25/20 09/25/20 18:59 06:59 18:59 Intake Total 360 600 600 Output Total 1 600 1 Balance 359 0 599 Intake: Oral 360 600 600 Output: Urine 600 Stool 1 1 Other: Voiding Method Urinal Urinal Urinal # Voids 2 1 # Bowel Movements 1 1 - Exam GENERAL EXAM: Alert, obese, pleasant 59-year-old gentleman, remains on AirVo high flow oxygen at 55 L and 90% FiO2, comfortable in no apparent distress. HEAD: Normocephalic. EYES: Normal reaction of pupils, equal size. NOSE: Clear with pink turbinates. THROAT: No erythema or exudates. NECK: No masses, no JVD. CHEST: No chest wall deformity. LUNGS: Equal air entry with bilateral scattered rhonchi. CVS: S1 and S2 normal with no audible murmur, regular rhythm. ABDOMEN: No hepatosplenomegaly, normal bowel sounds, no guarding or rigidity. SPINE: No scoliosis or deformity SKIN: No rashes CENTRAL NERVOUS SYSTEM: No focal deficits, tone is normal in all 4 extremities. EXTREMITIES: There is no peripheral edema. No clubbing, no cyanosis. Peripheral pulses are intact. - Labs CBC & Chem 7: 09/24/20 06:31 09/24/20 06:31 Labs: Abnormal Lab Results - Last 24 Hours (Table) 09/24/20 09/25/20 09/25/20 Range/Units 20:32 07:09 10:51 POC Glucose (mg/dL) 228 H 158 H 147 H (75-99) mg/dL Assessment and Plan Assessment: 1 Acute hypoxic respiratory failure secondary to acute CoVID 19 pneumonitis, currently on AirVo 60 L and 90% FiO2. Completed Remdesivir, received convalescent plasma. Remains on high-dose Lovenox, IV Solu-Medrol, and vitamin supplements. 2 History of asthma, currently inactive secondary to above 3 History of prostate cancer status post prostatectomy 4 Obesity 5 Lifelong nonsmoker 6 Hyperlipidemia 7 History of gastric esophageal reflux disease 8 History of asbestos 6 exposure while in the Plan: The patient was seen and evaluated by Dr. Finch Chest x-ray reviewed Add IV diuretics Check pro calcitonin Obtain a sputum sample Add cefepime Continue AirVo high flow and 55 L and 90% FiO2 Completed Remdesivir, received convalescent plasma Remains on IV Solu-Medrol, Lovenox and vitamin supplements Titrate down the FiO2 as tolerated We'll continue to follow closely and make further recommendations based on his clinical status I, the cosigning physician, performed a history & physical examination of the patient. Lungs sounds with few scattered rhonchi. Maintaining good O2 saturati ons in the 90s on AirVo high flow at 55 L and 90% FiO2. I discussed the assessment and plan of care with my nurse practitioner, Pauly Grayson. I attest to the above note as dictated by her.
[2020-09-25] MEDS: CEFEPIME 2 GM in SODIUM CHLORIDE 0.9% 100 ML IVPB SCH (20:39)
[2020-09-25] MEDS: MELATONIN 5 MG TABLET PO SCH (20:40)
[2020-09-25] MEDS: ALPRAZolam 0.25 MG TAB PO PRN (20:41)
[2020-09-25] MEDS: FUROSEMIDE 10 MG/ML 4 ML VIAL IV SCH (20:41)
[2020-09-25] MEDS: INSULIN DETEMIR (LEVEMIR) 100 UNIT/ML SYR SQ SCH (20:42)
[2020-09-25 20:49] LABS: Glucose,Whole Blood 236 mg/dL (75-99)
[2020-09-26] MEDS: methylPREDNISolone SOD SUCCI 125 MG/2 ML VIAL IV SCH ×4 (01:00→17:43)
[2020-09-26] MEDS: guaiFENesin-Coden 100-10MG/5ML 10 ML CUP PO SCH ×4 (01:06→20:30)
[2020-09-26 07:06] LABS: Glucose,Whole Blood 169 mg/dL (75-99)
[2020-09-26] MEDS: ASCORBIC ACID 500 MG TAB PO SCH (08:06)
[2020-09-26] MEDS: ATORVASTATIN 80 MG TAB PO SCH (08:06)
[2020-09-26] MEDS: INSULIN ASPART (NovoLOG) 100 UNIT/ML VIAL SQ SCH ×4 (08:06→20:36)
[2020-09-26] MEDS: FAMOTIDINE 20 MG TAB PO SCH (08:07)
[2020-09-26] MEDS: CEFEPIME 2 GM in SODIUM CHLORIDE 0.9% 100 ML IVPB SCH ×2 (08:07→20:17)
[2020-09-26] MEDS: ZINC SULFATE 220 MG CAP PO SCH (08:07)
[2020-09-26] MEDS: CHOLECALCIFEROL 400 UNIT TAB PO SCH (08:07)
[2020-09-26] MEDS: BENZONATATE 100 MG CAP PO SCH ×3 (08:07→20:17)
[2020-09-26] MEDS: buPROPion 75 MG TAB PO SCH (08:08)
[2020-09-26] MEDS: ENOXAPARIN 60 MG/0.6 ML SYRINGE SQ SCH ×2 (08:08→20:16)
[2020-09-26] MEDS: ALBUTEROL HFA INHALER INHALATION SCH ×4 (09:16→20:24)
[2020-09-26] MEDS: FUROSEMIDE 10 MG/ML 4 ML VIAL IV SCH ×2 (09:31→20:16)
[2020-09-26 10:54] LABS: Glucose,Whole Blood 252 mg/dL (75-99)
[2020-09-26] MEDS ORDERED: INSULIN ASPART (NovoLOG) 100 UNIT/ML VIAL SQ ONE (12:01)
--- NOTE | 2020-09-26 13:41 | P.PN ---
Subjective Progress Note Date: 09/26/20 On 09/26/2020, the patient is feeling relatively the same. This morning, the patient was having more shortness of breath. He coughs and he does have some sputum and following that he felt better. He still on 60 L of oxygen by nasal cannula and the patient is on FiO2 of 90%. He has been on the same oxygen flow for the past 5 days at least. He has completed Remdesivir and he is also on IV Solu-Medrol, vitamin C, vitamin D, Prevacid, melatonin and zinc. He is afebrile. He is having no mental status change. No nausea or vomiting. No diarrhea abdominal pain. Unfortunately his condition is at a standstill and he is not showing any signs of improvement at this point in time. I started patien t IV Lasix yesterday as the patient was having increased swelling in lower extremities. He is responding. However, he still has significant amount of edema in lower extremities. Objective - Vital Signs Vital signs: Vital Signs Temp 98 F 09/26/20 11:00 Pulse 93 09/26/20 11:00 Resp 22 09/26/20 11:00 BP 157/82 09/26/20 11:00 Pulse Ox 92 L 09/26/20 10:33 Intake & Output 09/25/20 09/26/20 09/26/20 18:59 06:59 18:59 Intake Total 960 100 500 Output Total 1801 0 Balance -841 100 500 Intake: Intake, IV Titration 100 Amount Cefepime 2 gm In Sodium 100 Chloride 0.9% 100 ml @ 25 mls/hr IVPB Q12HR [facility] Rx #:[id number] Oral 960 500 Output: Urine 1800 Stool 1 0 Other: Voiding Method Urinal Urinal # Voids 7 2 # Bowel Movements 1 - Exam GENERAL EXAM: Alert, obese, pleasant 59-year-old gentleman, now on AirVo high flow oxygen at 60 L and 90% FiO2, comfortable in no apparent distress. HEAD: Normocephalic. EYES: Normal reaction of pupils, equal size. NOSE: Clear with pink turbinates. THROAT: No erythema or exudates. NECK: No masses, no JVD. CHEST: No chest wall deformity. LUNGS: Equal air entry with bilateral scattered rhonchi. CVS: S1 and S2 normal with no audible murmur, regular rhythm. ABDOMEN: No hepatosplenomegaly, normal bowel sounds, no guarding or rigidity. SPINE: No scoliosis or deformity SKIN: No rashes CENTRAL NERVOUS SYSTEM: No focal deficits, tone is normal in all 4 extremities. EXTREMITIES: There is no peripheral edema. No clubbing, no cyanosis. Per ipheral pulses are intact. - Labs CBC & Chem 7: 09/24/20 06:31 09/24/20 06:31 Labs: Abnormal Lab Results - Last 24 Hours (Table) 09/25/20 09/25/20 09/26/20 Range/Units 17:15 20:48 06:27 POC Glucose (mg/dL) 213 H 236 H (75-99) mg/dL Procalcitonin 0.11 H (0.02-0.09) ng/mL 09/26/20 09/26/20 Range/Units 07:01 10:52 POC Glucose (mg/dL) 169 H 252 H (75-99) mg/dL Procalcitonin (0.02-0.09) ng/mL Microbiology - Last 24 Hours (Table) 09/25/20 15:50 Gram Stain - Preliminary Sputum Sputum Culture - Preliminary Assessment and Plan Plan: 1 Acute hypoxic respiratory failure secondary to acute CoVID 19 pneumonitis, currently on AirVo 60 L and 90% FiO2. Completed Remdesivir today. received convalescent plasma.no major improvement in his oxygenation. The patient is still requiring high flow oxygen 60 L. unchanged compared to yesterday and I will say his condition is been essentially unchanged over the past [address] Chest x-ray is unchanged compared to the earlier chest was done on 09/20/2020. 2 History of asthma, currently inactive secondary to above 3 History of prostate cancer status post prostatectomy 4 Obesity 5 Lifelong nonsmoker 6 Hyperlipidemia 7 History of gastric esophageal reflux disease 8 History of asbestos exposure while in the 9 lower extremity edema, currently on IV Lasix Plan: Switch to AirVo high flow and 60 L and 90% FiO2 Completed Remdesivir Completed convalescent plasma Remains on high-dose IV Solu-Medrol Lovenox for DVT prophylaxis. Continue IV Lasix Condition is essentially unchanged and the patient is at a standstill for now Prognosis is guarded We'll continue to follow closely and make further recommendations based on his clinical status clinically unchanged. We'll continue to follow
[2020-09-26 17:12] LABS: Glucose,Whole Blood 254 mg/dL (75-99)
[2020-09-26] MEDS: MELATONIN 5 MG TABLET PO SCH (20:17)
[2020-09-26] MEDS: INSULIN DETEMIR (LEVEMIR) 100 UNIT/ML SYR SQ SCH (20:36)
[2020-09-26 20:39] LABS: Glucose,Whole Blood 234 mg/dL (75-99)
[2020-09-27] MEDS: methylPREDNISolone SOD SUCCI 125 MG/2 ML VIAL IV SCH ×5 (00:13→22:25)
[2020-09-27] MEDS: guaiFENesin-Coden 100-10MG/5ML 10 ML CUP PO SCH ×5 (00:16→23:00)
--- NOTE | 2020-09-27 00:43 | P.PN ---
Subjective This is a pleasant 59 years old male with multiple medical problems as below including hyperlipidemia, GERD, asthma, history of prostate cancer, PTSD and history of asthma asbestos exposure. He follows at the [facility]. He presents because of dyspnea and generalized weakness and muscle pain. No coughing or chest pain. Patient had persistent dyspnea despite using his inhalers No abdominal pain or fever, no diarrhea or change in bowel habits. No dysuria. No headache or weakness Vitals are unremarkable and patient is afebrile. He is currently saturating 92% on room air Admission labs showing leukocytosis of 15 K, d-dimer was elevated at 0.97, BMP and liver enzymes are unremarkable. Covid test is positive EKG showing sinus tachycardia at [address]-T changes CTA of the chest, [place] pulmonary interstitial pneumonia remained no evidence of pulmonary embolism Was given 1 dose of Solu-Medrol and 1 dose of Zithromax and ceftriaxone 09/17/2020 Patient in mild respiratory distress with significant coughing asking for something to help him, Robitussin ac is been added. He is on 2.5-3 L/m oxygen via nasal cannula Continue with dexamethasone and Lovenox and remdesivir Follow-up chest x-ray and inflammatory markers tomorrow 09/18/2020 Patient is breathing easily, patient is still coughing and not completely resolved. No chest pain. Saturating in the 90s with oxygen 3-5 L/m. Pulmonary team on the case and patient is found closely by Dr. Ocampo, Who ordered inflammatory markers and chest x-ray: Findings consistent with patient's history of pneumonia, progression compared to prior exam .Continue w ith treatment as per recommendation by pulmonary team, is currently on dexamethasone, Lovenox and remdesivir, also on vitamin C and zinc. Antibiotics were stopped by pulmonary team 09/22/2020 Patient was admitted with Covid pneumonia, he is a still on 50 L oxygen via high flow nasal cannula, patient reports some improvement compared to yesterday, he is not in significant respiratory distress, coughing is better controlled. He had 2 loose bowel movement today which is suspicious for Covid gastroenteritis but no abdominal pain or vomiting His d-dimer is slightly elevated at 1.28. Patient currently on vitamin C and zinc Solu-Medrol 60 mg and Lovenox 60 mg twice daily .patient also was placed on insulin 10 units at bedtime for better glucose control (Not home medication ) 09/23/2020 Patient is awake and alert. Sitting on a chair with a breathing machine next to him. Patient with similar respiratory distress as of yesterday. With some bothering cough. A still have diarrhea about twice per day. His oxygen requirements fluctuating between 50-60 L via high flow nasal cannula. Chest x-ray showed stable diffuse bilateral infiltrates. We will check labs and inflammatory markers tomorrow Patient to continue with same treatment O vitamin C, zinc, centimeters 60 mg and Lovenox 60 mg twice daily. 09/24/2020 Patient remains in respiratory distress his breathing feels harder today with Ceasar course coughing. Also he is having 4 bouts of diarrhea through the day. He is a still on 60 L oxygen via high flow nasal cannula Leukocytosis 19 K. BMP stable. Lactate dehydrogenase slightly elevated at 340 as well as C-reactive protein at 1.0. Normal procalcitonin at 0.08 Pulmonary service on the case 09/25/2020 Patient breathing is easier today, and saturating 90% on 50 L via high flow nasal cannula. His still have diarrhea about 4 times per day Sugar is controlled Continue with same treatment as above, vitamin C, zinc, centimeters 60 mg and Lovenox 60 mg twice daily. 09/26/2020 Patient clinically remains the same, one day he had some improvement in oxygen and subsequently later that day and goes up to 60 L, is still suffering from respiratory difficulty and breathing difficulty. His diarrhea is slightly better today. Patient continue on the same treatment with IV Lasix twice daily, Solu-Medrol 60 mg, Lovenox 60 mg twice daily, vitamin C and zinc. Check inflammatory markers and the morning Review of Systems CONSTITUTIONAL: No fever, no malaise, no fatigue. HEENT: No recent visual problems or hearing problems. Denied any sore throat. CARDIOVASCULAR: No orthopnea, PND, no palpitations, no syncope. PULMONARY: No chest wall tenderness, no hemoptysis. GASTROINTESTINAL: No diarrhea, no nausea, no vomiting, no abdominal pain. Normoactive bowel sounds. NEUROLOGICAL: No headaches, no weakness, no numbness. Active Medications Generic Name Dose Route Start Last Admin Trade Name Freq PRN Reason Stop Dose Admin Acetaminophen 650 mg 09/16/20 22:07 09/23/20 23:57 Acetaminophen Tab 325 Mg Tab PO 650 mg Q4HR PRN Administration Fever and/ or Pain Albuterol Sulfate 2 puff 09/16/20 07:19 Albuterol Hfa Inhaler INHALATION RT-QID PRN Shortness Of Breath Or Wheezing Albuterol Sulfate 2 puff 09/16/20 08:00 09/26/20 20:24 Albuterol Hfa Inhaler INHALATION 2 puff RT-QID [place] Administration Alprazolam 0.25 mg 09/20/20 12:29 09/25/20 20:41 Alprazolam 0.25 Mg Tab PO 0.25 mg TID PRN Administration Anxiety Ascorbic Acid 1,000 mg 09/16/20 09:00 09/26/20 08:06 Ascorbic Acid 500 Mg Tab PO 1,000 mg DAILY [place] Administration Atorvastatin Calcium 80 mg 09/16/20 09:00 09/26/20 08:06 Atorvastatin 80 Mg Tab PO 80 mg DAILY [place] Administration Benzonatate 200 mg 09/19/20 12:30 09/26/20 20:17 Benzonatate 100 Mg Cap PO 200 mg TID [place] Administration Bupropion HCl 150 mg 09/16/20 09:00 09/26/20 08:08 Bupropion 75 Mg Tab PO 150 mg DAILY [place] Administration Cholecalciferol 400 unit 09/17/20 09:00 09/26/20 08:07 Cholecalciferol 400 Unit Tab PO 400 unit DAILY [place] Administration Enoxaparin Sodium 60 mg 09/19/20 21:00 09/26/20 20:16 Enoxaparin 60 Mg/0.6 Ml Syringe SQ 60 mg BID [place] Administration Famotidine 40 mg 09/17/20 09:00 09/26/20 08:07 Famotidine 20 Mg Tab PO 40 mg DAILY [place] Administration Furosemide 40 mg 09/25/20 21:00 09/26/20 20:16 Furosemide 10 Mg/Ml 4 Ml Vial IV 40 mg Q12HR [place] Administration Guaifenesin/Codeine Phosphate 10 ml 09/17/20 13:00 09/27/20 00:16 Guaifenesin-Coden 100-10mg/5ml 10 Ml Cup PO Not Given Q6H [facility] Cefepime HCl 2 gm/ Sodium 100 mls @ 25 mls/hr 09/25/20 21:00 09/26/20 20:17 Chloride IVPB 25 mls/hr Q12HR [place] Administration Insulin Aspart 0 unit 09/20/20 21:00 09/26/20 20:36 Insulin Aspart (Novolog) 100 Unit/Ml Vial SQ 8 unit ACHS [place] Administration Protocol Insulin Detemir 10 unit 09/20/20 21:00 09/26/20 20:36 Insulin Detemir (Levemir) 100 Unit/Ml Syr SQ 10 unit HS [place] Administration Melatonin 5 mg 09/16/20 21:00 09/26/20 20:17 Melatonin 5 Mg Tablet PO 5 mg HS [place] Administration Methylprednisolone Sodium Succinate 60 mg 09/19/20 18:00 09/27/20 00:13 Methylprednisolone Sod Succi 125 Mg/2 Ml Vial IV 60 mg Q6HR [place] Administration Trazodone HCl 50 mg 09/16/20 23:38 09/18/20 21:45 Trazodone Hcl 50 Mg Tab PO 50 mg HS PRN Administration Insomnia Zinc Sulfate 220 mg 09/16/20 09:00 09/26/20 08:07 Zinc Sulfate 220 Mg Cap PO 220 mg DAILY [place] Administration Objective - Vital Signs Vital signs: Vital Signs Temp 98 F 09/26/20 22:44 Pulse 89 09/26/20 22:44 Resp 20 09/26/20 22:44 BP 148/87 09/26/20 22:44 Pulse Ox 91 L 09/26/20 22:44 Intake & Output 09/26/20 09/26/20 09/27/20 06:59 18:59 06:59 Intake Total 100 600 Output Total 0 800 Balance 100 600 -800 Intake: Intake, IV Titration 100 100 Amount Cefepime 2 gm In Sodium 100 100 Chloride 0.9% 100 ml @ 25 mls/hr IVPB Q12HR [facility] Rx #:[id number] Oral 500 Output: Urine 800 Stool 0 0 Other: Voiding Method Urinal Urinal # Voids 2 2 # Bowel Movements 1 1 - Exam GENERAL: The patient is alert and oriented x3, not in any acute distress. Well developed, well nourished. HEENT: Pupils are round and equally reacting to light. EOMI. No scleral icterus. No conjunctival pallor. Normocephalic, atraumatic. No pharyngeal erythema. No thyromegaly. CARDIOVASCULAR: S1 and S2 present. No murmurs, rubs, or gallops. PULMONARY: Chest is clear to auscultation, no wheezing or crackles. ABDOMEN: Soft, nontender, nondistended, normoactive bowel sounds. No palpable organomegaly. MUSCULOSKELETAL: No joint swelling or deformity. EXTREMITIES: No cyanosis, clubbing, or pedal edema. NEUROLOGICAL: Gross neurological examination did not reveal any focal deficits. SKIN: No rashes. no petechiae. - Labs CBC & Chem 7: 09/24/20 06:31 09/24/20 06:31 Labs: Abnormal Lab Results - Last 24 Hours (Table) 09/26/20 09/26/20 09/26/20 Range/Units 06:27 07:01 10:52 POC Glucose (mg/dL) 169 H 252 H (75-99) mg/dL Procalcitonin 0.11 H (0.02-0.09) ng/mL 09/26/20 09/26/20 Range/Units 17:11 20:29 POC Glucose (mg/dL) 254 H 234 H (75-99) mg/dL Procalcitonin (0.02-0.09) ng/mL Microbiology - Last 24 Hours (Table) 09/25/20 15:50 Gram Stain - Preliminary Sputum Sputum Culture - Preliminary Assessment and Plan Assessment: Bilateral Covid pneumonia Increase inflammatory markers secondary to above Covid gastroenteritis Hyperlipidemia History of GERD History of asthma, not an active issue History of prostate cancer PTSD History of asbestosis exposure Plan: This is a pleasant 59 years old male who presents because of Covid pneumonia. Continue with zinc sulfate, ascorbic acid and Lovenox. Follow-up recommendation by pulmonary service Labs and medication were reviewed.. Continue same treatment. Continue with symptomatic treatment. Resume home medication. Monitor lytes and vitals. DVT and GI prophylaxis. Further recommendations depends on the clinical course of the patient DVT prophylaxis: Subcutaneous Lovenox GI Prophylaxis: Ppi Prognosis is guarded
[2020-09-27 07:11] LABS: Glucose,Whole Blood 208 mg/dL (75-99)
[2020-09-27] MEDS: ALBUTEROL HFA INHALER INHALATION SCH ×4 (08:28→20:16)
[2020-09-27] MEDS: buPROPion 75 MG TAB PO SCH (08:36)
[2020-09-27] MEDS: CHOLECALCIFEROL 400 UNIT TAB PO SCH (08:36)
[2020-09-27] MEDS: FAMOTIDINE 20 MG TAB PO SCH (08:36)
[2020-09-27] MEDS: ATORVASTATIN 80 MG TAB PO SCH (08:36)
[2020-09-27] MEDS: INSULIN ASPART (NovoLOG) 100 UNIT/ML VIAL SQ SCH ×4 (08:36→22:26)
[2020-09-27] MEDS: BENZONATATE 100 MG CAP PO SCH ×3 (08:36→22:25)
[2020-09-27] MEDS: ENOXAPARIN 60 MG/0.6 ML SYRINGE SQ SCH ×2 (08:36→22:25)
[2020-09-27] MEDS: ZINC SULFATE 220 MG CAP PO SCH (08:36)
[2020-09-27] MEDS: ASCORBIC ACID 500 MG TAB PO SCH (08:36)
[2020-09-27] MEDS: CEFEPIME 2 GM in SODIUM CHLORIDE 0.9% 100 ML IVPB SCH ×2 (08:37→22:26)
[2020-09-27] MEDS: FUROSEMIDE 10 MG/ML 4 ML VIAL IV SCH (08:38)
[2020-09-27 10:21] LABS: African American GFR (CKD) 95.7 (60.0-200.0); Albumin 3.5 g/dL (3.80-4.90); Albumin/Globulin Ratio 1.75 (1.60-3.17); Anion Gap 9.9 mmol/L (4.00-12.00); C Reactive Protein 0.4 mg/dL (0.0-0.8); Calcium 8.7 mg/dL (8.7-10.3); Carbon Dioxide 31.1 mmol/L (21.6-31.8); Non-African American GFR(CKD) 82.6 (60.0-200.0); Potassium 4.6 mmol/L (3.5-5.5); Total Bilirubin 1.3 mg/dL (0.3-1.2); Total Protein 5.5 g/dL (6.2-8.2)
[2020-09-27 11:39] LABS: Glucose,Whole Blood 290 mg/dL (75-99)
--- NOTE | 2020-09-27 13:12 | P.PN ---
Subjective Progress Note Date: 09/27/20 On 09/27/2020, the patient remains on 60 L of oxygen by nasal cannula with an FiO2 of 90%. He is a morbidly obese. Patient was recovering from his current/overnight. It is. Unfortunately, he has not gone into a lot of progress over the past several days and the patient has remained on high flow oxygen. He is able to get out of the bed. Is able to sit up on a recliner.He has completed Remdesivir and he is also on IV Solu-Medrol, vitamin C, vitamin D, Prevacid, melatonin and zinc. He is afebrile. The patient is also on IV Lasix. Congestive swelling lower extremities.The pro-calcitonin level is at 0.11. The patient is also on empiric antibiotic coverage with IV cefepime. Levemir is at 10 units and the patient is on a NovoLog sliding scale coverage. The patient remains on IV Solu-Medrol 60 mg IV push every 6 hours. Penicillin made to wean down the flow down to 50 L. Her pulse ox 88% effaced platelet count 60 L. Objective - Vital Signs Vital signs: Vital Signs Temp 97.5 F L 09/27/20 11:00 Pulse 92 09/27/20 11:00 Resp 28 H 09/27/20 11:00 BP 167/95 09/27/20 11:00 Pulse Ox 88 L 09/27/20 11:00 Intake & Output 09/26/20 09/27/20 09/27/20 18:59 06:59 18:59 Intake Total 600 400 Output Total 1200 Balance 600 -800 Intake: Intake, IV Titration 100 Amount Cefepime 2 gm In Sodium 100 Chloride 0.9% 100 ml @ 25 mls/hr IVPB Q12HR [facility] Rx #:[id number] Oral 500 400 Output: Urine 1200 Stool 0 Other: Voiding Method Urinal Urinal # Voids 2 2 # Bowel Movements 1 1 - Exam GENERAL EXAM: Alert, obese, pleasant 59-year-old gentleman, now on AirVo high flow oxygen at 60 L and 90% FiO2, comfortable in no apparent distress. HEAD: Normocephalic. EYES: Normal reaction of pupils, equal size. NOSE: Clear with pink turbinates. THROAT: No erythema or exudates. NECK: No masses, no JVD. CHEST: No chest wall deformity. LUNGS: Equal air entry with bilateral scattered rhonchi. CVS: S1 and S2 normal with no audible murmur, regular rhythm. ABDOMEN: No hepatosplenomegaly, normal bowel sounds, no guarding or rigidity. SPINE: No scoliosis or deformity SKIN: No rashes CENTRAL NERVOUS SYSTEM: No focal deficits, tone is normal in all 4 extremities. EXTREMITIES: There is no peripheral edema. No clubbing, no cyanosis. Peripheral pulses are intact. - Labs CBC & Chem 7: 09/24/20 06:31 09/27/20 06:26 Labs: Abnormal Lab Results - Last 24 Hours (Table) 09/26/20 09/26/20 09/27/20 Range/Units 17:11 20:29 06:26 BUN 30.0 H (9.0-27.0) mg/dL BUN/Creatinine Ratio 30.00 H (12.00-20.00) Ratio Glucose 237 H (70-110) mg/dL POC Glucose (mg/dL) 254 H 234 H (75-99) mg/dL Total Bilirubin 1.3 H (0.3-1.2) mg/dL ALT 54 H (10-49) U/L Lactate Dehydrogenase 483 H (120-246) U/L Total Protein 5.5 L (6.2-8.2) g/dL Albumin 3.50 L (3.80-4.90) g/dL 09/27/20 09/27/20 Range/Units 07:09 11:37 BUN (9.0-27.0) mg/dL BUN/Creatinine Ratio (12.00-20.00) Ratio Glucose (70-110) mg/dL POC Glucose (mg/dL) 208 H 290 H (75-99) mg/dL Total Bilirubin (0.3-1.2) mg/dL ALT (10-49) U/L Lactate Dehydrogenase (120-246) U/L Total Protein (6.2-8.2) g/dL Albumin (3.80-4.90) g/dL Microbiology - Last 24 Hours (Table) 09/25/20 15:50 Gram Stain - Final Sputum Sputum Culture - Final Assessment and Plan Plan: 1 Acute hypoxic respiratory failure secondary to acute CoVID 19 pneumonitis, currently on AirVo 60 L and 90% FiO2. Completed Remdesivir today. received convalescent plasma.no major improvement in his oxygenation. The patient is still requiring high flow oxygen 60 L. attempts to wean down the flow has failed. The patient remains unchanged compared to yesterday and I will say his condition is been essentially unchanged over the past [address] 2 History of asthma, currently inactive secondary to above 3 History of prostate cancer status post prostatectomy 4 Obesity 5 Lifelong nonsmoker 6 Hyperlipidemia 7 History of gastric esophageal reflux disease 8 History of asbestos exposure while in the 9 lower extremity edema, currently on IV Lasix Plan: AirVo high flow and 60 L and 90% FiO2 Completed Remdesivir Completed convalescent plasma Remains on high-dose IV Solu-Medrol Lovenox for DVT prophylaxis. Continue IV Lasix and drop the dose down to 40 mg once a day, IV Condition is essentially unchanged and the patient is at a standstill for now Prognosis is guarded We'll continue to follow closely and make further recommendations based on his clinical status clinically unchanged. We'll continue to follow
[2020-09-27 16:57] LABS: Glucose,Whole Blood 270 mg/dL (75-99)
[2020-09-27] MEDS ORDERED: INSULIN DETEMIR (LEVEMIR) 100 UNIT/ML SYR SQ ONE (21:28)
--- NOTE | 2020-09-27 21:32 | P.PN ---
Subjective This is a pleasant 59 years old male with multiple medical problems as below including hyperlipidemia, GERD, asthma, history of prostate cancer, PTSD and history of asthma asbestos exposure. He follows at the [facility]. He presents because of dyspnea and generalized weakness and muscle pain. No coughing or chest pain. Patient had persistent dyspnea despite using his inhalers No abdominal pain or fever, no diarrhea or change in bowel habits. No dysuria. No headache or weakness Vitals are unremarkable and patient is afebrile. He is currently saturating 92% on room air Admission labs showing leukocytosis of 15 K, d-dimer was elevated at 0.97, BMP and liver enzymes are unremarkable. Covid test is positive EKG showing sinus tachycardia at [address]-T changes CTA of the chest, [place] pulmonary interstitial pneumonia remained no evidence of pulmonary embolism Was given 1 dose of Solu-Medrol and 1 dose of Zithromax and ceftriaxone 09/17/2020 Patient in mild respiratory distress with significant coughing asking for something to help him, Robitussin ac is been added. He is on 2.5-3 L/m oxygen via nasal cannula Continue with dexamethasone and Lovenox and remdesivir Follow-up chest x-ray and inflammatory markers tomorrow 09/18/2020 Patient is breathing easily, patient is still coughing and not completely resolved. No chest pain. Saturating in the 90s with oxygen 3-5 L/m. Pulmonary team on the case and patient is found closely by Dr. Ocampo, Who ordered inflammatory markers and chest x-ray: Findings consistent with patient's history of pneumonia, progression compared to prior exam .Continue w ith treatment as per recommendation by pulmonary team, is currently on dexamethasone, Lovenox and remdesivir, also on vitamin C and zinc. Antibiotics were stopped by pulmonary team 09/22/2020 Patient was admitted with Covid pneumonia, he is a still on 50 L oxygen via high flow nasal cannula, patient reports some improvement compared to yesterday, he is not in significant respiratory distress, coughing is better controlled. He had 2 loose bowel movement today which is suspicious for Covid gastroenteritis but no abdominal pain or vomiting His d-dimer is slightly elevated at 1.28. Patient currently on vitamin C and zinc Solu-Medrol 60 mg and Lovenox 60 mg twice daily .patient also was placed on insulin 10 units at bedtime for better glucose control (Not home medication ) 09/23/2020 Patient is awake and alert. Sitting on a chair with a breathing machine next to him. Patient with similar respiratory distress as of yesterday. With some bothering cough. A still have diarrhea about twice per day. His oxygen requirements fluctuating between 50-60 L via high flow nasal cannula. Chest x-ray showed stable diffuse bilateral infiltrates. We will check labs and inflammatory markers tomorrow Patient to continue with same treatment O vitamin C, zinc, centimeters 60 mg and Lovenox 60 mg twice daily. 09/24/2020 Patient remains in respiratory distress his breathing feels harder today with Ceasar course coughing. Also he is having 4 bouts of diarrhea through the day. He is a still on 60 L oxygen via high flow nasal cannula Leukocytosis 19 K. BMP stable. Lactate dehydrogenase slightly elevated at 340 as well as C-reactive protein at 1.0. Normal procalcitonin at 0.08 Pulmonary service on the case 09/25/2020 Patient breathing is easier today, and saturating 90% on 50 L via high flow nasal cannula. His still have diarrhea about 4 times per day Sugar is controlled Continue with same treatment as above, vitamin C, zinc, centimeters 60 mg and Lovenox 60 mg twice daily. 09/26/2020 Patient clinically remains the same, one day he had some improvement in oxygen and subsequently later that day and goes up to 60 L, is still suffering from respiratory difficulty and breathing difficulty. His diarrhea is slightly better today. Patient continue on the same treatment with IV Lasix twice daily, Solu-Medrol 60 mg, Lovenox 60 mg twice daily, vitamin C and zinc. Check inflammatory markers and the morning 09/27/2020 Patient today feels breathing easier, his bowel movement is semisolid, he had 2 bowel movements today which were semisolid. His LDH is slightly worse, C-reactive protein was somewhat checked was normal at 0.4 He has been on Solu-Medrol Medrol 60 mg, also Lasix 40 mg twice daily and cefepime twice daily were added to the regimen, besides his other Covid pneumo jay treatment including vitamin C, zinc and Lovenox. History of her on the high side because he is on his steroids and Levemir was increased from 10 to 18 units at bedtime check chest x-ray, inflammatory markers, pro-calcitonin and labs tomorrow Review of Systems CONSTITUTIONAL: No fever, no malaise, no fatigue. HEENT: No recent visual problems or hearing problems. Denied any sore throat. CARDIOVASCULAR: No orthopnea, PND, no palpitations, no syncope. PULMONARY: No chest wall tenderness, no hemoptysis. GASTROINTESTINAL: No diarrhea, no nausea, no vomiting, no abdominal pain. Normoactive bowel sounds. NEUROLOGICAL: No headaches, no weakness, no numbness. Active Medications Generic Name Dose Route Start Last Admin Trade Name Freq PRN Reason Stop Dose Admin Acetaminophen 650 mg 09/16/20 22:07 09/23/20 23:57 Acetaminophen Tab 325 Mg Tab PO 650 mg Q4HR PRN Administration Fever and/ or Pain Albuterol Sulfate 2 puff 09/16/20 07:19 Albuterol Hfa Inhaler INHALATION RT-QID PRN Shortness Of Breath Or Wheezing Albuterol Sulfate 2 puff 09/16/20 08:00 09/27/20 20:16 Albuterol Hfa Inhaler INHALATION 2 puff RT-QID [place] Administration Alprazolam 0.25 mg 09/20/20 12:29 09/25/20 20:41 Alprazolam 0.25 Mg Tab PO 0.25 mg TID PRN Administration Anxiety Ascorbic Acid 1,000 mg 09/16/20 09:00 09/27/20 08:36 Ascorbic Acid 500 Mg Tab PO 1,000 mg DAILY [place] Administration Atorvastatin Calcium 80 mg 09/16/20 09:00 09/27/20 08:36 Atorvastatin 80 Mg Tab PO 80 mg DAILY [place] Administration Benzonatate 200 mg 09/19/20 12:30 09/27/20 16:17 Benzonatate 100 Mg Cap PO Not Given TID [place] Bupropion HCl 150 mg 09/16/20 09:00 09/27/20 08:36 Bupropion 75 Mg Tab PO 150 mg DAILY [place] Administration Cholecalciferol 400 unit 09/17/20 09:00 09/27/20 08:36 Cholecalciferol 400 Unit Tab PO 400 unit DAILY [place] Administration Enoxaparin Sodium 60 mg 09/19/20 21:00 09/27/20 08:36 Enoxaparin 60 Mg/0.6 Ml Syringe SQ 60 mg BID [place] Administration Famotidine 40 mg 09/17/20 09:00 09/27/20 08:36 Famotidine 20 Mg Tab PO 40 mg DAILY [place] Administration Furosemide 40 mg 09/28/20 09:00 Furosemide 10 Mg/Ml 4 Ml Vial IV Q24HR [place] Guaifenesin/Codeine Phosphate 10 ml 09/17/20 13:00 09/27/20 12:06 Guaifenesin-Coden 100-10mg/5ml 10 Ml Cup PO Not Given Q6H [place] Cefepime HCl 2 gm/ Sodium 100 mls @ 25 mls/hr 09/25/20 21:00 09/27/20 08:37 Chloride IVPB 25 mls/hr Q12HR [place] Administration Insulin Aspart 0 unit 09/20/20 21:00 09/27/20 17:12 Insulin Aspart (Novolog) 100 Unit/Ml Vial SQ 10 unit ACHS [place] Administration Protocol Insulin Detemir 10 unit 09/20/20 21:00 09/26/20 20:36 Insulin Detemir (Levemir) 100 Unit/Ml Syr SQ 10 unit HS [place] Administration Melatonin 5 mg 09/16/20 21:00 09/26/20 20:17 Melatonin 5 Mg Tablet PO 5 mg HS [place] Administration Methylprednisolone Sodium Succinate 60 mg 09/19/20 18:00 09/27/20 17:11 Methylprednisolone Sod Succi 125 Mg/2 Ml Vial IV Not Given Q6HR [place] Trazodone HCl 50 mg 09/16/20 23:38 09/18/20 21:45 Trazodone Hcl 50 Mg Tab PO 50 mg HS PRN Administration Insomnia Zinc Sulfate 220 mg 09/16/20 09:00 09/27/20 08:36 Zinc Sulfate 220 Mg Cap PO 220 mg DAILY [place] Administration Objective - Vital Signs Vital signs: Vital Signs Temp 97.5 F L 09/27/20 16:31 Pulse 97 09/27/20 16:31 Resp 26 H 09/27/20 16:31 BP 173/94 09/27/20 16:31 Pulse Ox 91 L 09/27/20 16:31 Intake & Output 09/26/20 09/27/20 09/27/20 18:59 06:59 18:59 Intake Total 600 400 Output Total 1200 Balance 600 -800 Intake: Intake, IV Titration 100 Amount Cefepime 2 gm In Sodium 100 Chloride 0.9% 100 ml @ 25 mls/hr IVPB Q12HR [facility] Rx #:[id number] Oral 500 400 Output: Urine 1200 Stool 0 Other: Voiding Method Urinal Urinal # Voids 2 2 # Bowel Movements 1 1 - Exam GENERAL: The patient is alert and oriented x3, not in any acute distress. Well developed, well nourished. HEENT: Pupils are round and equally reacting to light. EOMI. No scleral icterus. No conjunctival pallor. Normocephalic, atraumatic. No pharyngeal erythema. No thyromegaly. CARDIOVASCULAR: S1 and S2 present. No murmurs, rubs, or gallops. PULMONARY: Chest is clear to auscultation, no wheezing or crackles. ABDOMEN: Soft, nontender, nondistended, normoactive bowel sounds. No palpable organomegaly. MUSCULOSKELETAL: No joint swelling or deformity. EXTREMITIES: No cyanosis, clubbing, or pedal edema. NEUROLOGICAL: Gross neurological examination did not reveal any focal deficits. SKIN: No rashes. no petechiae. - Labs CBC & Chem 7: 09/24/20 06:31 09/27/20 06:26 Labs: Abnormal Lab Results - Last 24 Hours (Table) 09/26/20 09/27/20 09/27/20 Range/Units 20:29 06:26 07:09 BUN 30.0 H (9.0-27.0) mg/dL BUN/Creatinine Ratio 30.00 H (12.00-20.00) Ratio Glucose 237 H (70-110) mg/dL POC Glucose (mg/dL) 234 H 208 H (75-99) mg/dL Total Bilirubin 1.3 H (0.3-1.2) mg/dL ALT 54 H (10-49) U/L Lactate Dehydrogenase 483 H (120-246) U/L Total Protein 5.5 L (6.2-8.2) g/dL Albumin 3.50 L (3.80-4.90) g/dL 09/27/20 09/27/20 Range/Units 11:37 16:56 BUN (9.0-27.0) mg/dL BUN/Creatinine Ratio (12.00-20.00) Ratio Glucose (70-110) mg/dL POC Glucose (mg/dL) 290 H 270 H (75-99) mg/dL Total Bilirubin (0.3-1.2) mg/dL ALT (10-49) U/L Lactate Dehydrogenase (120-246) U/L Total Protein (6.2-8.2) g/dL Albumin (3.80-4.90) g/dL Microbiology - Last 24 Hours (Table) 09/25/20 15:50 Gram Stain - Final Sputum Sputum Culture - Final Assessment and Plan Assessment: Bilateral Covid pneumonia Increase inflammatory markers secondary to above Covid gastroenteritis Hyperlipidemia History of GERD History of asthma, not an active issue History of prostate cancer PTSD History of asbestosis exposure Plan: This is a pleasant 59 years old male who presents because of Covid pneumonia. Continue with zinc sulfate, ascorbic acid and Lovenox. Follow-up recommendation by pulmonary service Labs and medication were reviewed.. Continue same treatment. Continue with symptomatic treatment. Resume home medication. Monitor lytes and vitals. DVT and GI prophylaxis. Further recommendations depends on the clinical course of the patient DVT prophylaxis: Subcutaneous Lovenox GI Prophylaxis: Ppi Prognosis is guarded
[2020-09-27 22:05] LABS: Glucose,Whole Blood 197 mg/dL (75-99)
[2020-09-27] MEDS: amLODIPine 5 MG TAB PO SCH (22:25)
[2020-09-27] MEDS: MELATONIN 5 MG TABLET PO SCH (22:25)
[2020-09-27] MEDS: INSULIN DETEMIR (LEVEMIR) 100 UNIT/ML SYR SQ SCH (22:57)
[2020-09-28] MEDS: guaiFENesin-Coden 100-10MG/5ML 10 ML CUP PO SCH ×4 (03:26→17:52)
[2020-09-28] MEDS: methylPREDNISolone SOD SUCCI 125 MG/2 ML VIAL IV SCH ×4 (05:30→22:27)
[2020-09-28 05:54] LABS: Basophils # (A) 0.2 k/uL (0-0.2); Basophils % (A) 1 %; Eosinophils % (A) 0 %; HCT 49.4 % (39.0-53.0); Lymphocytes # (A) 0.3 k/uL (1.0-4.8); Lymphocytes % (A) 1 %; MCH 29.4 pg (25.0-35.0); MCHC 32.5 g/dL (31.0-37.0); MCV 90.5 fL (80.0-100.0); Mean Platelet Volume 7.4; Monocytes # (A) 1.6 k/uL (0-1.0); Monocytes % (A) 6 %; Neutrophils # (A) 26.1 k/uL (1.3-7.7); Neutrophils % (A) 92 %; Platelet Count 341 k/uL (150-450); RBC 5.46 m/uL (4.30-5.90); RDW 13.4 % (11.5-15.5); WBC 28.5 k/uL (3.8-10.6)
[2020-09-28 07:12] LABS: Glucose,Whole Blood 176 mg/dL (75-99)
[2020-09-28] MEDS: ALBUTEROL HFA INHALER INHALATION SCH ×4 (08:06→20:08)
--- NOTE | 2020-09-28 09:11 | XR ---
EXAMINATION TYPE: XR chest 1V DATE OF EXAM: 09/28/2020 COMPARISON: 09/25/2020 HISTORY: Cough TECHNIQUE: Single frontal view of the chest is obtained. FINDINGS: Bilateral airspace disease greater on the left is stable. Could not exclude a left pleural effusion. Heart size enlarged. No pneumothorax. IMPRESSION: Bilateral airspace disease is stable.
[2020-09-28 09:28] LABS: African American GFR (CKD) 108.7 (60.0-200.0); BUN/Creat Ratio 36.67 Ratio (12.00-20.00); C Reactive Protein <0.4 mg/dL (0.0-0.8); Calcium 8.6 mg/dL (8.7-10.3); Carbon Dioxide 31.4 mmol/L (21.6-31.8); Chloride 98 mmol/L (96-109); Glucose 225 mg/dL (70-110); LDH 560 U/L (120-246); Non-African American GFR(CKD) 93.8 (60.0-200.0); Potassium 4.6 mmol/L (3.5-5.5); Sodium 139 mmol/L (135-145)
[2020-09-28] MEDS: INSULIN ASPART (NovoLOG) 100 UNIT/ML VIAL SQ SCH ×4 (09:29→21:03)
[2020-09-28] MEDS: CEFEPIME 2 GM in SODIUM CHLORIDE 0.9% 100 ML IVPB SCH ×2 (09:29→21:04)
[2020-09-28] MEDS: ATORVASTATIN 80 MG TAB PO SCH (09:30)
[2020-09-28] MEDS: FAMOTIDINE 20 MG TAB PO SCH (09:30)
[2020-09-28] MEDS: CHOLECALCIFEROL 400 UNIT TAB PO SCH (09:30)
[2020-09-28] MEDS: FUROSEMIDE 10 MG/ML 4 ML VIAL IV SCH (09:30)
[2020-09-28] MEDS: BENZONATATE 100 MG CAP PO SCH ×3 (09:30→22:27)
[2020-09-28] MEDS: amLODIPine 5 MG TAB PO SCH (09:30)
[2020-09-28] MEDS: buPROPion 75 MG TAB PO SCH (09:30)
[2020-09-28] MEDS: ASCORBIC ACID 500 MG TAB PO SCH (09:30)
[2020-09-28] MEDS: ENOXAPARIN 60 MG/0.6 ML SYRINGE SQ SCH ×2 (09:30→21:05)
[2020-09-28] MEDS: ZINC SULFATE 220 MG CAP PO SCH (09:31)
[2020-09-28 11:38] LABS: Glucose,Whole Blood 201 mg/dL (75-99)
--- NOTE | 2020-09-28 15:26 | P.PN ---
Subjective Progress Note Date: 09/28/20 This is a pleasant 59 years old male with multiple medical problems as below including hyperlipidemia, GERD, asthma, history of prostate cancer, PTSD and history of asthma asbestos exposure. He follows at the [facility]. He presents because of dyspnea and generalized weakness and muscle pain. No c oughing or chest pain. Patient had persistent dyspnea despite using his inhalers No abdominal pain or fever, no diarrhea or change in bowel habits. No dysuria. No headache or weakness Vitals are unremarkable and patient is afebrile. He is currently saturating 92% on room air Admission labs showing leukocytosis of 15 K, d-dimer was elevated at 0.97, BMP and liver enzymes are unremarkable. Covid test is positive EKG showing sinus tachycardia at [address]-T changes CTA of the chest, [place] pulmonary interstitial pneumonia remained no evidence of pulmonary embolism Was given 1 dose of Solu-Medrol and 1 dose of Zithromax and ceftriaxone 09/17/2020 Patient in mild respiratory distress with significant coughing asking for something to help him, Robitussin ac is been added. He is on 2.5-3 L/m oxygen via nasal cannula Continue with dexamethasone and Lovenox and remdesivir Follow-up chest x-ray and inflammatory markers tomorrow 09/18/2020 Patient is breathing easily, patient is still coughing and not completely resolved. No chest pain. Saturating in the 90s with oxygen 3-5 L/m. Pulmonary team on the case and patient is found closely by Dr. Ocampo, Who ordered inflammatory markers and chest x-ray: Findings consistent with patient's history of pneumonia, progression compared to prior exam .Continue with treatment as per recommendation by pulmonary team, is currently on dexamethasone, Lovenox and remdesivir, also on vitamin C and zinc. Antibiotics were stopped by pulmonary team 09/22/2020 Patient was admitted with Covid pneumonia, he is a still on 50 L oxygen via high flow nasal cannula, patient reports some improvement compared to yesterday, he is not in significant respiratory distress, coughing is better controlled. He had 2 loose bowel movement today which is suspicious for Covid gastroenteritis but no abdominal pain or vomiting His d-dimer is slightly elevated at 1.28. Patient currently on vitamin C and zinc Solu-Medrol 60 mg and Lovenox 60 mg twice daily .patient also was placed on insulin 10 units at bedtime for better glucose control (Not home medication ) 09/23/2020 Patient is awake and alert. Sitting on a chair with a breathing machine next to him. Patient with similar respiratory distress as of yesterday. With some bothering cough. A still have diarrhea about twice per day. His oxygen requirements fluctuating between 50-60 L via high flow nasal cannula. Chest x-ray showed stable diffuse bilateral infiltrates. We will check labs and inflammatory markers tomorrow Patient to continue with same treatment O vitamin C, zinc, centimeters 60 mg and Lovenox 60 mg twice daily. 09/24/2020 Patient remains in respiratory distress his breathing feels harder today with Ceasar course coughing. Also he is having 4 bouts of diarrhea through the day. He is a still on 60 L oxygen via high flow nasal cannula Leukocytosis 19 K. BMP stable. Lactate dehydrogenase slightly elevated at 340 as well as C-reactive protein at 1.0. Normal procalcitonin at 0.08 Pulmonary service on the case 09/25/2020 Patient breathing is easier today, and saturating 90% on 50 L via high flow nasal cannula. His still have diarrhea about 4 times per day Sugar is controlled Continue with same treatment as above, vitamin C, zinc, centimeters 60 mg and Lovenox 60 mg twice daily. 09/26/2020 Patient clinically remains the same, one day he had some improvement in oxygen and subsequently later that day and goes up to 60 L, is still suffering from respiratory difficulty and breathing difficulty. His diarrhea is slightly better today. Patient continue on the same treatment with IV Lasix twice daily, Solu-Medrol 60 mg, Lovenox 60 mg twice daily, vitamin C and zinc. Check inflammatory markers and the morning 09/27/2020 Patient today feels breathing easier, his bowel movement is semisolid, he had 2 bowel movements today which were semisolid. His LDH is slightly worse, C-reactive protein was somewhat checked was normal at 0.4 He has been on Solu-Medrol Medrol 60 mg, also Lasix 40 mg twice daily and cefepime twice daily were added to the regimen, besides his other Covid pneumonia treatment including vitamin C, zinc and Lovenox. History of her on the high side because he is on his steroids and Levemir was increased from 10 to 18 units at bedtime check chest x-ray, inflammatory markers, pro-calcitonin and labs tomorrow 09/28/2020 Patient states he is not having a good day and his oxygen status has worsened. Patient currently on Airvo with an O2 flow rate of 60 and an FiO2 of 90%. D- dimer today trending down at 0.89. White blood count elevated at 28.5, sodium is 139, potassium is 4.6, current creatinine is 0.9. Blood sugar slightly elevated and will continue sliding scale and long-acting 18 units will be added. Patient is also maintained on IV Lasix and will continue at this time along with IV antibiotics in the form of cefepime, Lovenox, vitamin C and E, and zinc supplements, and IV steroids. Discussed with the patient about using his incentive spirometer at least 10 times every hour while awake and increasing activity as tolerated. Patient has been lying in bed all day today. Review of Systems CONSTITUTIONAL: No fever, no malaise, extreme fatigue, anxious. HEENT: No recent visual problems or hearing problems. Denied any sore throat. CARDIOVASCULAR: No orthopnea, PND, no palpitations, no syncope. PULMONARY: No chest wall tenderness, no hemoptysis. Reports exertional dyspnea and worsening respiratory status GASTROINTESTINAL: No diarrhea, no nausea, no vomiting, no abdominal pain. Normoactive bowel sounds. NEUROLOGICAL: No headaches, reports weakness, no numbness. Objective - Vital Signs Vital signs: Vital Signs Temp 98.2 F 09/28/20 05:00 Pulse 81 09/28/20 05:00 Resp 20 09/28/20 05:00 BP 119/73 09/28/20 05:00 Pulse Ox 90 L 09/28/20 05:00 Intake & Output 09/27/20 09/28/20 09/28/20 18:59 06:59 18:59 Intake Total 300 Output Total 0 Balance 300 Intake: Intake, IV Titration 100 Amount Cefepime 2 gm In Sodium 100 Chloride 0.9% 100 ml @ 25 mls/hr IVPB Q12HR [facility] Rx #:[id number] Oral 200 Output: Stool 0 Other: Voiding Method Urinal Urinal - Exam GENERAL: The patient is alert and oriented x3, not in any acute distress. Well developed, well nourished. HEENT: Pupils are round and equally reacting to light. EOMI. No scleral icterus. No conjunctival pallor. Normocephalic, atraumatic. No pharyngeal erythema. No thyromegaly. CARDIOVASCULAR: S1 and S2 present. No murmurs, rubs, or gallops. PULMONARY: Chest is clear to auscultation, no wheezing or crackles. ABDOMEN: Soft, nontender, nondistended, normoactive bowel sounds. No palpable organomegaly. MUSCULOSKELETAL: No joint swelling or deformity. EXTREMITIES: No cyanosis, clubbing, or pedal edema. NEUROLOGICAL: Gross neurological examination did not reveal any focal deficits. SKIN: No rashes. no petechiae. - Labs CBC & Chem 7: 09/28/20 05:20 09/28/20 05:20 Labs: Abnormal Lab Results - Last 24 Hours (Table) 09/27/20 09/27/20 09/27/20 Range/Units 11:37 16:56 22:04 WBC (3.8-10.6) k/uL Neutrophils # (1.3-7.7) k/uL Lymphocytes # (1.0-4.8) k/uL Monocytes # (0-1.0) k/uL D-Dimer (<0.60) mg/L FEU BUN (9.0-27.0) mg/dL BUN/Creatinine Ratio (12.00-20.00) Ratio Glucose (70-110) mg/dL POC Glucose (mg/dL) 290 H 270 H 197 H (75-99) mg/dL Calcium (8.7-10.3) mg/dL Lactate Dehydrogenase (120-246) U/L 09/28/20 09/28/20 09/28/20 Range/Units 05:20 05:20 05:20 WBC 28.5 H (3.8-10.6) k/uL Neutrophils # 26.1 H (1.3-7.7) k/uL Lymphocytes # 0.3 L (1.0-4.8) k/uL Monocytes # 1.6 H (0-1.0) k/uL D-Dimer 0.89 H (<0.60) mg/L FEU BUN 33.0 H (9.0-27.0) mg/dL BUN/Creatinine Ratio 36.67 H (12.00-20.00) Ratio Glucose 225 H (70-110) mg/dL POC Glucose (mg/dL) (75-99) mg/dL Calcium 8.6 L (8.7-10.3) mg/dL Lactate Dehydrogenase 560 H (120-246) U/L 09/28/20 Range/Units 07:09 WBC (3.8-10.6) k/uL Neutrophils # (1.3-7.7) k/uL Lymphocytes # (1.0-4.8) k/uL Monocytes # (0-1.0) k/uL D-Dimer (<0.60) mg/L FEU BUN (9.0-27.0) mg/dL BUN/Creatinine Ratio (12.00-20.00) Ratio Glucose (70-110) mg/dL POC Glucose (mg/dL) 176 H (75-99) mg/dL Calcium (8.7-10.3) mg/dL Lactate Dehydrogenase (120-246) U/L Microbiology - Last 24 Hours (Table) 09/25/20 15:50 Gram Stain - Final Sputum Sputum Culture - Final Assessment and Plan Assessment: Bilateral Covid pneumonia Increase inflammatory markers secondary to above Covid gastroenteritis Hyperlipidemia History of GERD History of asthma, not an active issue History of prostate cancer PTSD History of asbestos exposure Plan: This is a pleasant 59 years old male who presents because of Covid pneumonia. Continue with zinc sulfate, ascorbic acid and Lovenox. Follow-up recommendation by pulmonary service. Patient currently remains on Airvo with an O2 rate of 60 and an FiO2 of 90% and is currently 90% on that. Patient continues to be extremely short of breath with any type of exertion. Patient states he feels exhausted and his breathing status has worsened. Labs and medication were reviewed.. Continue same treatment. Continue with symptomatic treatment. Resume home medication. Monitor lytes and vitals. DVT and GI prophylaxis. Further recommendations depends on the clinical course of the patient DVT prophylaxis: Subcutaneous Lovenox GI Prophylaxis: Ppi Prognosis is guarded
--- NOTE | 2020-09-28 15:53 | PN ---
PROGRESS NOTE This is a patient who was admitted way back on September 15. In fact, I saw him when he first came in on admission. The patient currently is still requiring significant oxygen supplementation. The patient is not receiving any IV fluids. He is on AIRVO at 60 L/minute with a FiO2 of 91%. He is quite short of breath. He is lying on his left side. He states he is having a "a rough day today." He states that yesterday was better, but today has not been so great. He describes shortness of breath with any activity. Current vital signs are reviewed. His temperature is 98, heart rate 87, respiratory rate 20, blood pressure 138/77 mean 97 and saturation are just right around between 88% and 91% on the 60 L/minute and with a FiO2 of 90%. Appears mildly tachypneic and dyspneic. Some conversational dyspnea. No audible wheezing. No use of accessory muscles. HEENT: Examination is grossly unremarkable. AIRVO cannula noted. NECK: Supple, full range of motion. No adenopathy. Neck veins are flat. CARDIOVASCULAR: Examination reveals regular rhythm and rate. S1, S2 normal. Heart rate mid 80s. No murmur. No S3 or S4. LUNGS: Reveal diffuse coarse rhonchi. Breath sounds are diminished. There are some bibasilar crackles. No wheezes. Breath sounds equal bilaterally. ABDOMEN: Soft, bowel sounds are heard. EXTREMITIES: Intact. No cyanosis, clubbing, or edema. SKIN: Without rash. NEUROLOGIC: Examination is nonfocal. LABORATORY DATA: Reviewed. White count 28.5, hemoglobin 16, hematocrit 49.4, platelet count 341,000. D- dimer 0.89. Sodium 139, potassium 4.6, chloride 98, CO2 is 31, anion gap is 9.6, BUN and creatinine were 33 and 0.9. The rest of the labs are reviewed. LDH is 560. Procalcitonin 0.08. Microbiologic studies including sputum and blood sampling have been negative. A chest x-ray done today on September 28 shows bilateral patchy infiltrates, with more dense infiltrates noted in the left mid lung, left lower lobe. CURRENT MEDICATIONS ARE: Reviewed. The patient is on Tylenol, albuterol inhaler, Xanax, amlodipine, vitamin C, Lipitor, Tessalon Perles, Wellbutrin, cefepime, vitamin D3, Lovenox, famotidine, Lasix, Robitussin AC, insulin, melatonin, Solu-Medrol, trazodone and zinc. ASSESSMENT: 1. Acute hypoxemic respiratory failure, secondary to COVID-19 pneumonitis, currently on AIRVO at 60 L/minute with a FiO2 of 90%. The patient has completed his Remdesivir for 5 days and also received convalescent plasma, high-flow O2, and higher dose corticosteroids. 2. History of asthma, currently inactive. 3. History of prostate cancer, status post prostatectomy. 4. Obesity. 5. Lifelong nonsmoker. 6. Hyperlipidemia. 7. History of gastroesophageal reflux disease. 8. History of asbestos exposure while in the . PLAN: Currently, the patient is receiving full medications. Unfortunately, he seems to be responding very slowly or not at all. His chest x-ray still shows significant bilateral infiltrates. He is still quite hypoxemic. The patient did receive 5 days Remdesivir, convalescent plasma, vitamin C, vitamin D3, zinc, and corticosteroids. Despite all of this, the patient does not seem to be improving all that much. Will continue to follow. Prognosis is very guarded. MMODL / IJN: [id number] /
[2020-09-28 17:14] LABS: Glucose,Whole Blood 253 mg/dL (75-99)
[2020-09-28 20:25] LABS: Glucose,Whole Blood 261 mg/dL (75-99)
[2020-09-28] MEDS ORDERED: INSULIN DETEMIR (LEVEMIR) 100 UNIT/ML SYR SQ SCH (21:00)
[2020-09-28] MEDS: MELATONIN 5 MG TABLET PO SCH (21:03)
[2020-09-29] MEDS: guaiFENesin-Coden 100-10MG/5ML 10 ML CUP PO SCH ×4 (00:52→17:01)
[2020-09-29] MEDS: methylPREDNISolone SOD SUCCI 125 MG/2 ML VIAL IV SCH ×4 (06:01→23:23)
[2020-09-29 07:40] LABS: Glucose,Whole Blood 186 mg/dL (75-99)
[2020-09-29] MEDS: FAMOTIDINE 20 MG TAB PO SCH (08:35)
[2020-09-29] MEDS: ENOXAPARIN 60 MG/0.6 ML SYRINGE SQ SCH ×2 (08:35→21:13)
[2020-09-29] MEDS: ASCORBIC ACID 500 MG TAB PO SCH (08:35)
[2020-09-29] MEDS: INSULIN ASPART (NovoLOG) 100 UNIT/ML VIAL SQ SCH ×4 (08:35→21:13)
[2020-09-29] MEDS: BENZONATATE 100 MG CAP PO SCH ×3 (08:35→23:23)
[2020-09-29] MEDS: CEFEPIME 2 GM in SODIUM CHLORIDE 0.9% 100 ML IVPB SCH ×2 (08:36→21:12)
[2020-09-29] MEDS: amLODIPine 5 MG TAB PO SCH (08:36)
[2020-09-29] MEDS: ATORVASTATIN 80 MG TAB PO SCH (08:36)
[2020-09-29] MEDS: buPROPion 75 MG TAB PO SCH (08:36)
[2020-09-29] MEDS: ZINC SULFATE 220 MG CAP PO SCH (08:36)
[2020-09-29] MEDS: CHOLECALCIFEROL 400 UNIT TAB PO SCH (08:36)
[2020-09-29] MEDS: FUROSEMIDE 10 MG/ML 4 ML VIAL IV SCH (08:37)
[2020-09-29] MEDS: ALBUTEROL HFA INHALER INHALATION SCH ×4 (08:56→20:03)
[2020-09-29 11:58] LABS: Glucose,Whole Blood 265 mg/dL (75-99)
[2020-09-29] MEDS ORDERED: INSULIN ASPART (NovoLOG) 100 UNIT/ML VIAL SQ ONE ×2 (13:00→18:18)
--- NOTE | 2020-09-29 15:14 | PN ---
PROGRESS NOTE PULMONARY STATUS CRITICAL CARE PROGRESS NOTE: DATE OF SERVICE: September 29, 2020. INTERVAL HISTORY: A 59-year-old gentleman who was admitted way back on September 15. The patient came in with a diagnosis of acute hypoxemic respiratory failure secondary to COVID-19 pneumonia. Currently, he remains on AIRVO. His settings include AF, FiO2 of 90%, and a flow rate of 60 L/minute. He is not receiving any IV fluids. He is having a bit better today than he did yesterday. He is sitting up at the bedside. He currently appears in no acute distress. He does get short of breath with exertion. He does have a bit of a cough. Not producing any phlegm. PHYSICAL EXAMINATION: VITAL SIGNS: Current vital signs good temperature 94, heart rate 87, respiratory rate blood pressure 119/76 mean 90 and saturations of 90%. GENERAL: Appears in no acute distress. No audible wheezing or use of accessory muscles. A bit of conversational dyspnea noted. HEENT: Examination is grossly unremarkable. AIRVO cannula noted in place. NECK: Supple full range of motion. No adenopathy. Neck veins are flat. CARDIOVASCULAR: Examination reveals regular rhythm and rate. Heart rate 87 beats per minute. S1, S2 normal. LUNGS: Reveal diminished breath sounds. A few scattered coarse rhonchi. No wheezes. No crackles. Breath sounds equal. ABDOMEN: Soft, but obese. Bowel sounds are heard. EXTREMITIES are intact. Slight edema. SKIN: Without rash. NEUROLOGIC: Examination is nonfocal. LABS: Reviewed. From today, only glucose of 265. Microbiology is currently all negative. The most recent chest x-ray was done on the , which showed bilateral patchy airspace disease. MEDICATIONS: Reviewed. Currently, he is on Tylenol, albuterol inhaler, Xanax, amlodipine, vitamin C, Lipitor, Tessalon Perles, Wellbutrin, Maxipime, cholecalciferol, Lovenox, famotidine, Lasix, Robitussin AC, insulin, Solu-Medrol, melatonin, trazodone and zinc. ASSESSMENT: 1. Acute hypoxemic respiratory failure secondary to COVID-19 pneumonitis, currently on AIRVO at 60 L/minutes and FiO2 of 90%. This is essentially unchanged from yesterday. 2. Status post Remdesivir for 5 days and convalescent plasma. 3. History of asthma, currently inactive. 4. History of prostate cancer, status post prostatectomy. 5. Obesity. 6. Lifelong nonsmoker. 7. Hyperlipidemia. 8. History of gastroesophageal reflux disease. 9. History of asbestos exposure while in the . PLAN: Currently, the patient is doing about the same. His oxygen requirements are about the same. He feels a bit better today than he did yesterday. No additional recommendations are made. Probably does not need antibiotics. We will go ahead and check a procalcitonin level. If it is low, we will DC his antibiotics. MMODL / IJN: [id number] /
--- NOTE | 2020-09-29 15:56 | P.PN ---
Subjective Progress Note Date: 09/29/20 This is a pleasant 59 years old male with multiple medical problems as below including hyperlipidemia, GERD, asthma, history of prostate cancer, PTSD and history of asthma asbestos exposure. He follows at the [facility]. He presents because of dyspnea and generalized weakness and muscle pain. No c oughing or chest pain. Patient had persistent dyspnea despite using his inhalers No abdominal pain or fever, no diarrhea or change in bowel habits. No dysuria. No headache or weakness Vitals are unremarkable and patient is afebrile. He is currently saturating 92% on room air Admission labs showing leukocytosis of 15 K, d-dimer was elevated at 0.97, BMP and liver enzymes are unremarkable. Covid test is positive EKG showing sinus tachycardia at [address]-T changes CTA of the chest, [place] pulmonary interstitial pneumonia remained no evidence of pulmonary embolism Was given 1 dose of Solu-Medrol and 1 dose of Zithromax and ceftriaxone 09/17/2020 Patient in mild respiratory distress with significant coughing asking for something to help him, Robitussin ac is been added. He is on 2.5-3 L/m oxygen via nasal cannula Continue with dexamethasone and Lovenox and remdesivir Follow-up chest x-ray and inflammatory markers tomorrow 09/18/2020 Patient is breathing easily, patient is still coughing and not completely resolved. No chest pain. Saturating in the 90s with oxygen 3-5 L/m. Pulmonary team on the case and patient is found closely by Dr. Ocampo, Who ordered inflammatory markers and chest x-ray: Findings consistent with patient's history of pneumonia, progression compared to prior exam .Continue with treatment as per recommendation by pulmonary team, is currently on dexamethasone, Lovenox and remdesivir, also on vitamin C and zinc. Antibiotics were stopped by pulmonary team 09/22/2020 Patient was admitted with Covid pneumonia, he is a still on 50 L oxygen via high flow nasal cannula, patient reports some improvement compared to yesterday, he is not in significant respiratory distress, coughing is better controlled. He had 2 loose bowel movement today which is suspicious for Covid gastroenteritis but no abdominal pain or vomiting His d-dimer is slightly elevated at 1.28. Patient currently on vitamin C and zinc Solu-Medrol 60 mg and Lovenox 60 mg twice daily .patient also was placed on insulin 10 units at bedtime for better glucose control (Not home medication ) 09/23/2020 Patient is awake and alert. Sitting on a chair with a breathing machine next to him. Patient with similar respiratory distress as of yesterday. With some bothering cough. A still have diarrhea about twice per day. His oxygen requirements fluctuating between 50-60 L via high flow nasal cannula. Chest x-ray showed stable diffuse bilateral infiltrates. We will check labs and inflammatory markers tomorrow Patient to continue with same treatment O vitamin C, zinc, centimeters 60 mg and Lovenox 60 mg twice daily. 09/24/2020 Patient remains in respiratory distress his breathing feels harder today with Ceasar course coughing. Also he is having 4 bouts of diarrhea through the day. He is a still on 60 L oxygen via high flow nasal cannula Leukocytosis 19 K. BMP stable. Lactate dehydrogenase slightly elevated at 340 as well as C-reactive protein at 1.0. Normal procalcitonin at 0.08 Pulmonary service on the case 09/25/2020 Patient breathing is easier today, and saturating 90% on 50 L via high flow nasal cannula. His still have diarrhea about 4 times per day Sugar is controlled Continue with same treatment as above, vitamin C, zinc, centimeters 60 mg and Lovenox 60 mg twice daily. 09/26/2020 Patient clinically remains the same, one day he had some improvement in oxygen and subsequently later that day and goes up to 60 L, is still suffering from respiratory difficulty and breathing difficulty. His diarrhea is slightly better today. Patient continue on the same treatment with IV Lasix twice daily, Solu-Medrol 60 mg, Lovenox 60 mg twice daily, vitamin C and zinc. Check inflammatory markers and the morning 09/27/2020 Patient today feels breathing easier, his bowel movement is semisolid, he had 2 bowel movements today which were semisolid. His LDH is slightly worse, C-reactive protein was somewhat checked was normal at 0.4 He has been on Solu-Medrol Medrol 60 mg, also Lasix 40 mg twice daily and cefepime twice daily were added to the regimen, besides his other Covid pneumonia treatment including vitamin C, zinc and Lovenox. History of her on the high side because he is on his steroids and Levemir was increased from 10 to 18 units at bedtime check chest x-ray, inflammatory markers, pro-calcitonin and labs tomorrow 09/28/2020 Patient states he is not having a good day and his oxygen status has worsened. Patient currently on Airvo with an O2 flow rate of 60 and an FiO2 of 90%. D- dimer today trending down at 0.89. White blood count elevated at 28.5, sodium is 139, potassium is 4.6, current creatinine is 0.9. Blood sugar slightly elevated and will continue sliding scale and long-acting 18 units will be added. Patient is also maintained on IV Lasix and will continue at this time along with IV antibiotics in the form of cefepime, Lovenox, vitamin C and E, and zinc supplements, and IV steroids. Discussed with the patient about using his incentive spirometer at least 10 times every hour while awake and increasing activity as tolerated. Patient has been lying in bed all day today. 09/29/2020 Patient is seen and evaluated and follow-up currently sitting up in the chair still remains on Airvo with oxygen saturation 89-90%. No real improvement from yesterday although feels somewhat less fatigued. Blood sugars continue to be slightly elevated and will continue with current regimen. Patient's diet continues to be poor although he states has improved somewhat. Continue to reeducate the patient on incentive spirometer use and increasing activity as tolerated. Patient continues to be severely dyspneic with exertion. Review of Systems CONSTITUTIONAL: No fever, no malaise, extreme fatigue, anxious. HEENT: No recent visual problems or hearing problems. Denied any sore throat. CARDIOVASCULAR: No orthopnea, PND, no palpitations, no syncope. PULMONARY: No chest wall tenderness, no hemoptysis. Reports exertional dyspnea GASTROINTESTINAL: No diarrhea, no nausea, no vomiting, no abdominal pain. Normoactive bowel sounds. NEUROLOGICAL: No headaches, reports weakness, no numbness. Objective - Vital Signs Vital signs: Vital Signs Temp 97.6 F 09/29/20 05:00 Pulse 77 09/29/20 05:00 Resp 20 09/29/20 05:00 BP 179/76 09/29/20 05:00 Pulse Ox 87 L 09/29/20 05:00 Intake & Output 09/28/20 09/29/20 09/29/20 18:59 06:59 18:59 Intake Total 1180 460 100 Output Total 0 500 300 Balance 1180 -40 -200 Intake: Intake, IV Titration 100 100 100 Amount Cefepime 2 gm In Sodium 100 100 100 Chloride 0.9% 100 ml @ 25 mls/hr IVPB Q12HR [facility] Rx #:[id number] Oral 1080 360 Output: Urine 500 300 Stool 0 0 Other: Voiding Method Urinal Urinal # Voids 4 # Bowel Movements 1 - Exam GENERAL: The patient is alert and oriented x3, not in any acute distress. Well developed, well nourished. HEENT: Pupils are round and equally reacting to light. EOMI. No scleral icterus. No conjunctival pallor. Normocephalic, atraumatic. No pharyngeal erythema. No thyromegaly. CARDIOVASCULAR: S1 and S2 present. No murmurs, rubs, or gallops. PULMONARY: Chest is clear to auscultation, no wheezing or crackles. ABDOMEN: Soft, nontender, nondistended, normoactive bowel sounds. No palpable organomegaly. MUSCULOSKELETAL: No joint swelling or deformity. EXTREMITIES: No cyanosis, clubbing, or pedal edema. NEUROLOGICAL: Gross neurological examination did not reveal any focal deficits. SKIN: No rashes. no petechiae. - Labs CBC & Chem 7: 09/28/20 05:20 09/28/20 05:20 Labs: Abnormal Lab Results - Last 24 Hours (Table) 09/28/20 09/28/20 09/28/20 Range/Units 11:37 17:12 20:16 POC Glucose (mg/dL) 201 H 253 H 261 H (75-99) mg/dL 09/29/20 Range/Units 07:39 POC Glucose (mg/dL) 186 H (75-99) mg/dL Assessment and Plan Assessment: Bilateral Covid pneumonia Increase inflammatory markers secondary to above Covid gastroenteritis Hyperlipidemia History of GERD History of asthma, not an active issue History of prostate cancer PTSD History of asbestos exposure DVT prophylaxis: Subcutaneous Lovenox GI Prophylaxis: Ppi Plan: This is a pleasant 59 years old male who presents because of Covid pneumonia. Continue with zinc sulfate, ascorbic acid and Lovenox. Follow-up recommendation by pulmonary service. Patient currently remains on Airvo with an O2 rate of 60 and an FiO2 of 90% and is currently 90% on that. Patient continues to be extremely short of breath with any type of exertion. Patient currently sitting up in the chair and more awake today. DVT and GI prophylaxis. Further recommendations depends on the clinical course of the patient. Prognosis is guarded
[2020-09-29 17:52] LABS: Glucose,Whole Blood 280 mg/dL (75-99)
[2020-09-29 20:45] LABS: Glucose,Whole Blood 258 mg/dL (75-99)
[2020-09-29] MEDS: INSULIN DETEMIR (LEVEMIR) 100 UNIT/ML SYR SQ SCH (21:12)
[2020-09-29] MEDS: MELATONIN 5 MG TABLET PO SCH (21:13)
[2020-09-29] MEDS: ALPRAZolam 0.25 MG TAB PO PRN (21:16)
[2020-09-30] MEDS: guaiFENesin-Coden 100-10MG/5ML 10 ML CUP PO SCH ×6 (01:05→23:56)
[2020-09-30] MEDS: methylPREDNISolone SOD SUCCI 125 MG/2 ML VIAL IV SCH ×4 (05:46→23:52)
[2020-09-30 07:14] LABS: Glucose,Whole Blood 146 mg/dL (75-99)
[2020-09-30 07:39] LABS: Basophils # (A) 0.1 k/uL (0-0.2); Basophils % (A) 0 %; Eosinophils # (A) 0.1 k/uL (0-0.7); Eosinophils % (A) 0 %; HCT 46.8 % (39.0-53.0); HGB 14.9 gm/dL (13.0-17.5); Lymphocytes # (A) 0.5 k/uL (1.0-4.8); Lymphocytes % (A) 2 %; MCH 28.9 pg (25.0-35.0); MCHC 31.9 g/dL (31.0-37.0); MCV 90.6 fL (80.0-100.0); Monocytes # (A) 1.6 k/uL (0-1.0); Monocytes % (A) 7 %; Neutrophils # (A) 20.3 k/uL (1.3-7.7); Neutrophils % (A) 89 %; Platelet Count 261 k/uL (150-450); RBC 5.16 m/uL (4.30-5.90); RDW 13.3 % (11.5-15.5); WBC 22.7 k/uL (3.8-10.6)
[2020-09-30] MEDS: ALPRAZolam 0.25 MG TAB PO PRN (09:07)
[2020-09-30] MEDS: CEFEPIME 2 GM in SODIUM CHLORIDE 0.9% 100 ML IVPB SCH ×2 (09:09→21:02)
[2020-09-30] MEDS: ENOXAPARIN 60 MG/0.6 ML SYRINGE SQ SCH ×2 (09:10→21:03)
[2020-09-30] MEDS: ASCORBIC ACID 500 MG TAB PO SCH (09:10)
[2020-09-30] MEDS: INSULIN ASPART (NovoLOG) 100 UNIT/ML VIAL SQ SCH ×4 (09:10→21:04)
[2020-09-30] MEDS: BENZONATATE 100 MG CAP PO SCH ×3 (09:11→21:03)
[2020-09-30] MEDS: ATORVASTATIN 80 MG TAB PO SCH (09:11)
[2020-09-30] MEDS: CHOLECALCIFEROL 400 UNIT TAB PO SCH (09:11)
[2020-09-30] MEDS: ZINC SULFATE 220 MG CAP PO SCH (09:11)
[2020-09-30] MEDS: FUROSEMIDE 10 MG/ML 4 ML VIAL IV SCH (09:11)
[2020-09-30] MEDS: amLODIPine 5 MG TAB PO SCH (09:11)
[2020-09-30] MEDS: buPROPion 75 MG TAB PO SCH (09:11)
[2020-09-30] MEDS: FAMOTIDINE 20 MG TAB PO SCH (09:11)
[2020-09-30] MEDS: ALBUTEROL HFA INHALER INHALATION SCH ×4 (09:24→19:21)
[2020-09-30 11:42] LABS: African American GFR (CKD) 120.6 (60.0-200.0); Anion Gap 8.1 mmol/L (4.00-12.00); BUN/Creat Ratio 44.29 Ratio (12.00-20.00); Calcium 8.4 mg/dL (8.7-10.3); Carbon Dioxide 29.9 mmol/L (21.6-31.8)
[2020-09-30 12:16] LABS: Glucose,Whole Blood 204 mg/dL (75-99)
--- NOTE | 2020-09-30 14:07 | PN ---
PROGRESS NOTE PULMONARY/CRITICAL CARE PROGRESS NOTE: DATE OF SERVICE: 09/30/2020 This is a 59-year-old gentleman who was admitted way back on September 15, 2020. He came into the hospital with a diagnosis of acute hypoxemic respiratory failure secondary to COVID-19 pneumonitis. He currently remains on AIRVO. He is at 60 L/minute and FiO2 of 93%. Not receiving any IV fluids. He feels like he is no better today than he was yesterday. Yesterday, he felt better than the day before. The patient is quite hypoxemic with any activity and becomes quite short of breath just walking to the bathroom. Denies any chest pain or pressure. He does have tightness in his chest. He is not coughing up any phlegm, although he does have a persistent dry cough. No fever, chills. No nausea, vomiting or diarrhea. Currently, his vital signs include a temperature of 98.3, heart rate 61, respiratory rate between 18-20 breaths per minute, blood pressure 129/65, mean 86 and a saturation of 90% on the prior settings. HEENT: Examination is grossly unremarkable. AIRVO cannula noted. NECK: Supple, full range of motion. No adenopathy or thyromegaly. Neck veins are flat. CARDIOVASCULAR: Examination reveals regular rhythm and rate. S1, S2 normal. No S3, S4, or murmur. Heart sounds are distant. Heart rate 61 beats per minute. LUNGS: Reveal diffuse coarse rhonchi and crackles. Breath sounds equal. ABDOMEN: Obese, bowel sounds are heard. EXTREMITIES: Intact. No cyanosis, clubbing, or edema. SKIN: Without rash. NEUROLOGIC: Examination is nonfocal. LABS: Reviewed. White count 22.7, hemoglobin is 14.9, hematocrit 46.8, platelet count 261,000. Sodium 137, potassium 5.0, chloride 99, CO2 is 30, BUN and creatinine were 31 and 0.7. Anion gap was 8. The rest of the labs look okay. Microbiology is currently all negative. No recent chest x-ray. The last chest x-ray was done on 09/28. Current medications are reviewed. The patient is on Tylenol, albuterol inhaler, Xanax, amlodipine, vitamin C, Lipitor, Tessalon Perles, Wellbutrin, Maxipime, vitamin D3, Lovenox, Pepcid, Lasix, Robitussin AC, insulin, melatonin, Solu-Medrol, trazodone and zinc. ASSESSMENT: 1. Acute hypoxemic respiratory failure secondary to COVID-19 pneumonitis, currently on AIRVO at 60 L/minute with a FiO2 of 93%. He is essentially unchanged compared to yesterday. 2. Status post Remdesivir for 5 days, and, convalescent plasma. 3. History of asthma, currently inactive. 4. History of prostate cancer, status post prostatectomy. 5. Obesity. 6. Lifelong nonsmoker. 7. Hyperlipidemia. 8. History of gastroesophageal reflux disease. 9. History of asbestos exposure while in the . PLAN: Currently, the patient is critically ill but stable. He remains hypoxemic. He remains on AIRVO at 60 L/minute and FiO2 of 93%. The patient's medications are all appropriate. We will repeat a chest x-ray in the morning. No additional recommendations are made. Overall prognosis is very guarded. The patient really has not seem to improve very much. MMODL / IJN: [id number] /
--- NOTE | 2020-09-30 14:32 | P.PN ---
Subjective Progress Note Date: 09/30/20 This is a pleasant 59 years old male with multiple medical problems as below including hyperlipidemia, GERD, asthma, history of prostate cancer, PTSD and history of asthma asbestos exposure. He follows at the [facility]. He presents because of dyspnea and generalized weakness and muscle pain. No c oughing or chest pain. Patient had persistent dyspnea despite using his inhalers No abdominal pain or fever, no diarrhea or change in bowel habits. No dysuria. No headache or weakness Vitals are unremarkable and patient is afebrile. He is currently saturating 92% on room air Admission labs showing leukocytosis of 15 K, d-dimer was elevated at 0.97, BMP and liver enzymes are unremarkable. Covid test is positive EKG showing sinus tachycardia at [address]-T changes CTA of the chest, Groundglass pulmonary interstitial pneumonia remained no evidence of pulmonary embolism Was given 1 dose of Solu-Medrol and 1 dose of Zithromax and ceftriaxone 09/17/2020 Patient in mild respiratory distress with significant coughing asking for something to help him, Robitussin ac is been added. He is on 2.5-3 L/m oxygen via nasal cannula Continue with dexamethasone and Lovenox and remdesivir Follow-up chest x-ray and inflammatory markers tomorrow 09/18/2020 Patient is breathing easily, patient is still coughing and not completely resolved. No chest pain. Saturating in the 90s with oxygen 3-5 L/m. Pulmonary team on the case and patient is found closely by Dr. Ocampo, Who ordered inflammatory markers and chest x-ray: Findings consistent with patient's history of pneumonia, progression compared to prior exam .Continue with treatment as per recommendation by pulmonary team, is currently on dexamethasone, Lovenox and remdesivir, also on vitamin C and zinc. Antibiotics were stopped by pulmonary team 09/22/2020 Patient was admitted with Covid pneumonia, he is a still on 50 L oxygen via high flow nasal cannula, patient reports some improvement compared to yesterday, he is not in significant respiratory distress, coughing is better controlled. He had 2 loose bowel movement today which is suspicious for Covid gastroenteritis but no abdominal pain or vomiting His d-dimer is slightly elevated at 1.28. Patient currently on vitamin C and zinc Solu-Medrol 60 mg and Lovenox 60 mg twice daily .patient also was placed on insulin 10 units at bedtime for better glucose control (Not home medication ) 09/23/2020 Patient is awake and alert. Sitting on a chair with a breathing machine next to him. Patient with similar respiratory distress as of yesterday. With some bothering cough. A still have diarrhea about twice per day. His oxygen requirements fluctuating between 50-60 L via high flow nasal cannula. Chest x-ray showed stable diffuse bilateral infiltrates. We will check labs and inflammatory markers tomorrow Patient to continue with same treatment O vitamin C, zinc, centimeters 60 mg and Lovenox 60 mg twice daily. 09/24/2020 Patient remains in respiratory distress his breathing feels harder today with Ceasar course coughing. Also he is having 4 bouts of diarrhea through the day. He is a still on 60 L oxygen via high flow nasal cannula Leukocytosis 19 K. BMP stable. Lactate dehydrogenase slightly elevated at 340 as well as C-reactive protein at 1.0. Normal procalcitonin at 0.08 Pulmonary service on the case 09/25/2020 Patient breathing is easier today, and saturating 90% on 50 L via high flow nasal cannula. His still have diarrhea about 4 times per day Sugar is controlled Continue with same treatment as above, vitamin C, zinc, centimeters 60 mg and Lovenox 60 mg twice daily. 09/26/2020 Patient clinically remains the same, one day he had some improvement in oxygen and subsequently later that day and goes up to 60 L, is still suffering from respiratory difficulty and breathing difficulty. His diarrhea is slightly better today. Patient continue on the same treatment with IV Lasix twice daily, Solu-Medrol 60 mg, Lovenox 60 mg twice daily, vitamin C and zinc. Check inflammatory markers and the morning 09/27/2020 Patient today feels breathing easier, his bowel movement is semisolid, he had 2 bowel movements today which were semisolid. His LDH is slightly worse, C-reactive protein was somewhat checked was normal at 0.4 He has been on Solu-Medrol Medrol 60 mg, also Lasix 40 mg twice daily and cefepime twice daily were added to the regimen, besides his other Covid pneumonia treatment including vitamin C, zinc and Lovenox. History of her on the high side because he is on his steroids and Levemir was increased from 10 to 18 units at bedtime check chest x-ray, inflammatory markers, pro-calcitonin and labs tomorrow 09/28/2020 Patient states he is not having a good day and his oxygen status has worsened. Patient currently on Airvo with an O2 flow rate of 60 and an FiO2 of 90%. D- dimer today trending down at 0.89. White blood count elevated at 28.5, sodium is 139, potassium is 4.6, current creatinine is 0.9. Blood sugar slightly elevated and will continue sliding scale and long-acting 18 units will be added. Patient is also maintained on IV Lasix and will continue at this time along with IV antibiotics in the form of cefepime, Lovenox, vitamin C and E, and zinc supplements, and IV steroids. Discussed with the patient about using his incentive spirometer at least 10 times every hour while awake and increasing activity as tolerated. Patient has been lying in bed all day today. 09/29/2020 Patient is seen and evaluated and follow-up currently sitting up in the chair still remains on Airvo with oxygen saturation 89-90%. No real improvement from yesterday although feels somewhat less fatigued. Blood sugars continue to be slightly elevated and will continue with current regimen. Patient's diet continues to be poor although he states has improved somewhat. Continue to reeducate the patient on incentive spirometer use and increasing activity as tolerated. Patient continues to be severely dyspneic with exertion. 09/30/2020 Patient is seen today and remains on Airvo with O2 flow rate of 60 and an FiO2 of 80. Patient requesting to attempt to wean FiO2 although patient continues to be extremely dyspneic, tachypneic, and anxious. Will repeat a.m. chest x-ray as patient is not really showing much improvement over the last few days. He is currently maintained on IV cefepime and will continue at this time. Patient's blood sugars have been elevated and adjustments have been made that long acting insulin and will continue with sliding scale as well. White blood count slightly improved at 22.7 today, current sodium is 137, potassium is 5.0, creatinine is 0.7. Patient is afebrile. Patient is tolerating diet although not much of an appetite he states. Patient is urinating and having bowel movements with no difficulties. Review of Systems CONSTITUTIONAL: No fever, no malaise, extreme fatigue, anxious. HEENT: No recent visual problems or hearing problems. Denied any sore throat. CARDIOVASCULAR: No orthopnea, PND, no palpitations, no syncope. PULMONARY: Reports chest tightness with inspiration, no hemoptysis. Reports exertional dyspnea GASTROINTESTINAL: No diarrhea, no nausea, no vomiting, no abdominal pain. Normoactive bowel sounds. NEUROLOGICAL: No headaches, no reports of weakness, no numbness. Objective - Vital Signs Vital signs: Vital Signs Temp 98.3 F 09/30/20 05:00 Pulse 61 09/30/20 05:00 Resp 18 09/30/20 05:00 BP 129/65 09/30/20 05:00 Pulse Ox 90 L 09/30/20 05:00 Intake & Output 09/29/20 09/30/20 09/30/20 18:59 06:59 18:59 Intake Total 1000 460 Output Total 300 600 Balance 700 -140 Intake: Intake, IV Titration 100 100 Amount Cefepime 2 gm In Sodium 100 100 Chloride 0.9% 100 ml @ 25 mls/hr IVPB Q12HR [facility] Rx #:[id number] Oral 900 360 Output: Urine 300 600 Stool 0 Other: Voiding Method Urinal # Voids 3 # Bowel Movements 1 - Exam GENERAL: The patient is alert and oriented x3, not in any acute distress. Well developed, well nourished, obese HEENT: Pupils are round and equally reacting to light. EOMI. No scleral icterus. No conjunctival pallor. Normocephalic, atraumatic. No pharyngeal erythema. No thyromegaly. CARDIOVASCULAR: S1 and S2 present. No murmurs, rubs, or gallops. PULMONARY: Diminished breath sounds bilaterally with some scattered rhonchi noted ABDOMEN: Soft, nontender, nondistended, normoactive bowel sounds. No palpable organomegaly. MUSCULOSKELETAL: No joint swelling or deformity. EXTREMITIES: No cyanosis, clubbing, or pedal edema. NEUROLOGICAL: Gross neurological examination did not reveal any focal deficits. SKIN: No rashes. no petechiae. - Labs CBC & Chem 7: 09/30/20 06:51 09/30/20 06:51 Labs: Abnormal Lab Results - Last 24 Hours (Table) 09/29/20 09/29/20 09/29/20 Range/Units 11:46 17:41 20:27 WBC (3.8-10.6) k/uL Neutrophils # (1.3-7.7) k/uL Lymphocytes # (1.0-4.8) k/uL Monocytes # (0-1.0) k/uL POC Glucose (mg/dL) 265 H 280 H 258 H (75-99) mg/dL 09/30/20 09/30/20 Range/Units 06:51 07:13 WBC 22.7 H (3.8-10.6) k/uL Neutrophils # 20.3 H (1.3-7.7) k/uL Lymphocytes # 0.5 L (1.0-4.8) k/uL Monocytes # 1.6 H (0-1.0) k/uL POC Glucose (mg/dL) 146 H (75-99) mg/dL Assessment and Plan Assessment: Bilateral Covid pneumonia Increase inflammatory markers secondary to above Covid gastroenteritis Hyperlipidemia History of GERD History of asthma, not an active issue History of prostate cancer PTSD History of asbestos exposure DVT prophylaxis: Subcutaneous Lovenox GI Prophylaxis: Ppi Plan: Continue with current medications. Pulmonary following closely. Attempting to wean FiO2 as tolerated although patient does not tolerate very well and oxygen saturations deteriorate quickly. Will repeat a.m. chest x-ray. Patient to continue with Airvo at this time. Educated the patient again on the importance of increasing activity and incentive spirometer use at least 10 times every hour while awake. Patient's blood sugars continue to be slightly elevated and long- acting has been increased to 20 units daily and will continue with sliding scale as well. Further recommendations depends on the clinical course of the patient. Prognosis is guarded
[2020-09-30 17:05] LABS: Glucose,Whole Blood 215 mg/dL (75-99)
[2020-09-30] MEDS: SYMBICORT 160-4.5 MCG INHALER INHALATION SCH (19:21)
[2020-09-30 20:35] LABS: Glucose,Whole Blood 306 mg/dL (75-99)
[2020-09-30] MEDS: MELATONIN 5 MG TABLET PO SCH (21:03)
[2020-09-30] MEDS: INSULIN DETEMIR (LEVEMIR) 100 UNIT/ML SYR SQ SCH (21:03)
[2020-10-01] MEDS: ALPRAZolam 0.25 MG TAB PO PRN ×3 (01:52→21:36)
[2020-10-01] MEDS: methylPREDNISolone SOD SUCCI 125 MG/2 ML VIAL IV SCH ×4 (05:05→23:42)
[2020-10-01 07:23] LABS: Glucose,Whole Blood 245 mg/dL (75-99)
[2020-10-01] MEDS: guaiFENesin-Coden 100-10MG/5ML 10 ML CUP PO SCH ×4 (07:46→21:47)
[2020-10-01] MEDS: INSULIN ASPART (NovoLOG) 100 UNIT/ML VIAL SQ SCH ×4 (07:59→21:38)
[2020-10-01] MEDS: ALBUTEROL HFA INHALER INHALATION SCH ×4 (08:09→19:16)
[2020-10-01] MEDS: CEFEPIME 2 GM in SODIUM CHLORIDE 0.9% 100 ML IVPB SCH ×2 (08:24→21:38)
[2020-10-01] MEDS: ENOXAPARIN 60 MG/0.6 ML SYRINGE SQ SCH ×2 (08:24→21:36)
[2020-10-01] MEDS: ATORVASTATIN 80 MG TAB PO SCH (08:25)
[2020-10-01] MEDS: BENZONATATE 100 MG CAP PO SCH ×3 (08:25→21:36)
[2020-10-01] MEDS: ASCORBIC ACID 500 MG TAB PO SCH (08:26)
[2020-10-01] MEDS: amLODIPine 5 MG TAB PO SCH (08:26)
[2020-10-01] MEDS: FAMOTIDINE 20 MG TAB PO SCH (08:26)
[2020-10-01] MEDS: ZINC SULFATE 220 MG CAP PO SCH (08:26)
[2020-10-01] MEDS: buPROPion 75 MG TAB PO SCH (08:27)
[2020-10-01] MEDS: FUROSEMIDE 10 MG/ML 4 ML VIAL IV SCH (08:27)
[2020-10-01] MEDS: CHOLECALCIFEROL 400 UNIT TAB PO SCH (08:27)
[2020-10-01] MEDS: SYMBICORT 160-4.5 MCG INHALER INHALATION SCH ×2 (09:18→19:18)
--- NOTE | 2020-10-01 09:29 | XR ---
EXAMINATION TYPE: XR chest 1V portable DATE OF EXAM: 10/01/2020 COMPARISON: 09/28/2020 HISTORY: Shortness of breath TECHNIQUE: Single frontal view of the chest is obtained. FINDINGS: There is bilateral diffuse airspace disease. The heart is enlarged. No pneumothorax. Posts urgical change left shoulder. Arthropathy bilateral shoulders. No sizable pleural effusion. IMPRESSION: Stable diffuse bilateral airspace disease.
[2020-10-01 09:35] LABS: Basophils % (A) 0 %; Eosinophils # (A) 0.2 k/uL (0-0.7); Eosinophils % (A) 1 %; HCT 52.6 % (39.0-53.0); HGB 16.8 gm/dL (13.0-17.5); Lymphocytes # (A) 0.2 k/uL (1.0-4.8); Lymphocytes % (A) 1 %; MCHC 31.9 g/dL (31.0-37.0); Mean Platelet Volume 7.7; Monocytes # (A) 0.5 k/uL (0-1.0); Monocytes % (A) 3 %; Neutrophils # (A) 16.8 k/uL (1.3-7.7); Neutrophils % (A) 94 %; Platelet Count 268 k/uL (150-450); RBC 5.77 m/uL (4.30-5.90); RDW 13.6 % (11.5-15.5); WBC 17.8 k/uL (3.8-10.6)
[2020-10-01 09:53] LABS: African American GFR (CKD) >90 (>60 ml/min/1.73 sqM); Anion Gap 9 mmol/L; Blood Urea Nitrogen 33 mg/dL (9-20); Calcium 8.5 mg/dL (8.4-10.2); Carbon Dioxide 26 mmol/L (22-30); Chloride 97 mmol/L (98-107); Glucose 346 mg/dL (74-99); Non-African American GFR(CKD) >90 (>60 ml/min/1.73 sqM); Potassium 5.2 mmol/L (3.5-5.1); Sodium 132 mmol/L (137-145)
[2020-10-01 11:45] LABS: Glucose,Whole Blood 249 mg/dL (75-99)
--- NOTE | 2020-10-01 13:31 | P.PN ---
Subjective Progress Note Date: 10/01/20 This is a pleasant 59 years old male with multiple medical problems as below including hyperlipidemia, GERD, asthma, history of prostate cancer, PTSD and history of asthma asbestos exposure. He follows at the [facility]. He presents because of dyspnea and generalized weakness and muscle pain. No c oughing or chest pain. Patient had persistent dyspnea despite using his inhalers No abdominal pain or fever, no diarrhea or change in bowel habits. No dysuria. No headache or weakness Vitals are unremarkable and patient is afebrile. He is currently saturating 92% on room air Admission labs showing leukocytosis of 15 K, d-dimer was elevated at 0.97, BMP and liver enzymes are unremarkable. Covid test is positive EKG showing sinus tachycardia at [address]-T changes CTA of the chest, [place] pulmonary interstitial pneumonia remained no evidence of pulmonary embolism Was given 1 dose of Solu-Medrol and 1 dose of Zithromax and ceftriaxone 09/17/2020 Patient in mild respiratory distress with significant coughing asking for something to help him, Robitussin ac is been added. He is on 2.5-3 L/m oxygen via nasal cannula Continue with dexamethasone and Lovenox and remdesivir Follow-up chest x-ray and inflammatory markers tomorrow 09/18/2020 Patient is breathing easily, patient is still coughing and not completely resolved. No chest pain. Saturating in the 90s with oxygen 3-5 L/m. Pulmonary team on the case and patient is found closely by Dr. Ocampo, Who ordered inflammatory markers and chest x-ray: Findings consistent with patient's history of pneumonia, progression compared to prior exam .Continue with treatment as per recommendation by pulmonary team, is currently on dexamethasone, Lovenox and remdesivir, also on vitamin C and zinc. Antibiotics were stopped by pulmonary team 09/22/2020 Patient was admitted with Covid pneumonia, he is a still on 50 L oxygen via high flow nasal cannula, patient reports some improvement compared to yesterday, he is not in significant respiratory distress, coughing is better controlled. He had 2 loose bowel movement today which is suspicious for Covid gastroenteritis but no abdominal pain or vomiting His d-dimer is slightly elevated at 1.28. Patient currently on vitamin C and zinc Solu-Medrol 60 mg and Lovenox 60 mg twice daily .patient also was placed on insulin 10 units at bedtime for better glucose control (Not home medication ) 09/23/2020 Patient is awake and alert. Sitting on a chair with a breathing machine next to him. Patient with similar respiratory distress as of yesterday. With some bothering cough. A still have diarrhea about twice per day. His oxygen requirements fluctuating between 50-60 L via high flow nasal cannula. Chest x-ray showed stable diffuse bilateral infiltrates. We will check labs and inflammatory markers tomorrow Patient to continue with same treatment O vitamin C, zinc, centimeters 60 mg and Lovenox 60 mg twice daily. 09/24/2020 Patient remains in respiratory distress his breathing feels harder today with Ceasar course coughing. Also he is having 4 bouts of diarrhea through the day. He is a still on 60 L oxygen via high flow nasal cannula Leukocytosis 19 K. BMP stable. Lactate dehydrogenase slightly elevated at 340 as well as C-reactive protein at 1.0. Normal procalcitonin at 0.08 Pulmonary service on the case 09/25/2020 Patient breathing is easier today, and saturating 90% on 50 L via high flow nasal cannula. His still have diarrhea about 4 times per day Sugar is controlled Continue with same treatment as above, vitamin C, zinc, centimeters 60 mg and Lovenox 60 mg twice daily. 09/26/2020 Patient clinically remains the same, one day he had some improvement in oxygen and subsequently later that day and goes up to 60 L, is still suffering from respiratory difficulty and breathing difficulty. His diarrhea is slightly better today. Patient continue on the same treatment with IV Lasix twice daily, Solu-Medrol 60 mg, Lovenox 60 mg twice daily, vitamin C and zinc. Check inflammatory markers and the morning 09/27/2020 Patient today feels breathing easier, his bowel movement is semisolid, he had 2 bowel movements today which were semisolid. His LDH is slightly worse, C-reactive protein was somewhat checked was normal at 0.4 He has been on Solu-Medrol Medrol 60 mg, also Lasix 40 mg twice daily and cefepime twice daily were added to the regimen, besides his other Covid pneumonia treatment including vitamin C, zinc and Lovenox. History of her on the high side because he is on his steroids and Levemir was increased from 10 to 18 units at bedtime check chest x-ray, inflammatory markers, pro-calcitonin and labs tomorrow 09/28/2020 Patient states he is not having a good day and his oxygen status has worsened. Patient currently on Airvo with an O2 flow rate of 60 and an FiO2 of 90%. D- dimer today trending down at 0.89. White blood count elevated at 28.5, sodium is 139, potassium is 4.6, current creatinine is 0.9. Blood sugar slightly elevated and will continue sliding scale and long-acting 18 units will be added. Patient is also maintained on IV Lasix and will continue at this time along with IV antibiotics in the form of cefepime, Lovenox, vitamin C and E, and zinc supplements, and IV steroids. Discussed with the patient about using his incentive spirometer at least 10 times every hour while awake and increasing activity as tolerated. Patient has been lying in bed all day today. 09/29/2020 Patient is seen and evaluated and follow-up currently sitting up in the chair still remains on Airvo with oxygen saturation 89-90%. No real improvement from yesterday although feels somewhat less fatigued. Blood sugars continue to be slightly elevated and will continue with current regimen. Patient's diet continues to be poor although he states has improved somewhat. Continue to reeducate the patient on incentive spirometer use and increasing activity as tolerated. Patient continues to be severely dyspneic with exertion. 09/30/2020 Patient is seen today and remains on Airvo with O2 flow rate of 60 and an FiO2 of 80. Patient requesting to attempt to wean FiO2 although patient continues to be extremely dyspneic, tachypneic, and anxious. Will repeat a.m. chest x-ray as patient is not really showing much improvement over the last few days. He is currently maintained on IV cefepime and will continue at this time. Patient's blood sugars have been elevated and adjustments have been made that long acting insulin and will continue with sliding scale as well. White blood count slightly improved at 22.7 today, current sodium is 137, potassium is 5.0, creatinine is 0.7. Patient is afebrile. Patient is tolerating diet although not much of an appetite he states. Patient is urinating and having bowel movements with no difficulties. 10/01/2020 Patient is seen in follow-up today continues to be on the airvo with a flow rate of 60 and FiO2 of 80 and oxygen saturation is 92%. Patient states his breathing feels improved today. Patient is more alert and active today. Chest x-ray today shows stable diffuse bilateral airspace disease. She continues on IV steroids along with IV Lasix, zinc, vitamin C and D and Lovenox. Pulmonary following. Blood sugars continue to be elevated and will adjust long-acting and continue with sliding scale. White blood count continues to trend down and is 17.8. Sodium slightly low at 132, potassium is 5.2, and current creatinine is 0.83. Review of Systems CONSTITUTIONAL: No fever, no malaise, extreme fatigue, anxious. HEENT: No recent visual problems or hearing problems. Denied any sore throat. CARDIOVASCULAR: No orthopnea, PND, no palpitations, no syncope. PULMONARY: Reports chest tightness with inspiration, although slightly improved. no hemoptysis. Reports exertional dyspnea that is improved today GASTROINTESTINAL: No diarrhea, no nausea, no vomiting, no abdominal pain. Normoactive bowel sounds. NEUROLOGICAL: No headaches, no reports of weakness, no numbness. Objective - Vital Signs Vital signs: Vital Signs Temp 97.9 F 10/01/20 05:00 Pulse 71 10/01/20 05:00 Resp 19 10/01/20 05:00 BP 120/67 10/01/20 05:00 Pulse Ox 95 10/01/20 05:00 Intake & Output 09/30/20 10/01/20 10/01/20 18:59 06:59 18:59 Intake Total 100 700 Output Total 0 Balance 100 700 0 Intake: Intake, IV Titration 100 100 Amount Cefepime 2 gm In Sodium 100 100 Chloride 0.9% 100 ml @ 25 mls/hr IVPB Q12HR [facility] Rx #:[id number] Oral 600 Output: Stool 0 Other: Voiding Method Urinal Urinal Urinal # Voids 2 # Bowel Movements 2 1 - Exam GENERAL: The patient is alert and oriented x3, not in any acute distress. Well developed, well nourished, obese HEENT: Pupils are round and equally reacting to light. EOMI. No scleral icterus. No conjunctival pallor. Normocephalic, atraumatic. No pharyngeal erythema. No thyromegaly. CARDIOVASCULAR: S1 and S2 present. No murmurs, rubs, or gallops. PULMONARY: Diminished breath sounds bilaterally with some scattered rhonchi noted ABDOMEN: Soft, nontender, nondistended, normoactive bowel sounds. No palpable organomegaly. MUSCULOSKELETAL: No joint swelling or deformity. EXTREMITIES: No cyanosis, clubbing, or pedal edema. NEUROLOGICAL: Gross neurological examination did not reveal any focal deficits. SKIN: No rashes. no petechiae. - Labs CBC & Chem 7: 10/01/20 09:10 10/01/20 09:10 Labs: Abnormal Lab Results - Last 24 Hours (Table) 09/30/20 09/30/20 09/30/20 Range/Units 06:51 12:15 16:48 WBC (3.8-10.6) k/uL Neutrophils # (1.3-7.7) k/uL Lymphocytes # (1.0-4.8) k/uL Sodium (137-145) mmol/L Potassium (3.5-5.1) mmol/L Chloride (98-107) mmol/L BUN 31.0 H (9.0-27.0) mg/dL BUN/Creatinine Ratio 44.29 H (12.00-20.00) Ratio Glucose 166 H (70-110) mg/dL POC Glucose (mg/dL) 204 H 215 H (75-99) mg/dL Calcium 8.4 L (8.7-10.3) mg/dL 09/30/20 10/01/20 10/01/20 Range/Units 20:34 07:21 09:10 WBC 17.8 H (3.8-10.6) k/uL Neutrophils # 16.8 H (1.3-7.7) k/uL Lymphocytes # 0.2 L (1.0-4.8) k/uL Sodium (137-145) mmol/L Potassium (3.5-5.1) mmol/L Chloride (98-107) mmol/L BUN (9.0-27.0) mg/dL BUN/Creatinine Ratio (12.00-20.00) Ratio Glucose (70-110) mg/dL POC Glucose (mg/dL) 306 H 245 H (75-99) mg/dL Calcium (8.7-10.3) mg/dL 10/01/20 Range/Units 09:10 WBC (3.8-10.6) k/uL Neutrophils # (1.3-7.7) k/uL Lymphocytes # (1.0-4.8) k/uL Sodium 132 L (137-145) mmol/L Potassium 5.2 H (3.5-5.1) mmol/L Chloride 97 L (98-107) mmol/L BUN 33 H (9.0-27.0) mg/dL BUN/Creatinine Ratio (12.00-20.00) Ratio Glucose 346 H (70-110) mg/dL POC Glucose (mg/dL) (75-99) mg/dL Calcium (8.7-10.3) mg/dL Assessment and Plan Assessment: Bilateral Covid pneumonia Increase inflammatory markers secondary to above Covid gastroenteritis Hyperlipidemia History of GERD History of asthma, not an active issue History of prostate cancer PTSD History of asbestos exposure DVT prophylaxis: Subcutaneous Lovenox GI Prophylaxis: Ppi Plan: Continue with current medications. Pulmonary following closely. Attempting to wean FiO2 as tolerated although patient does not tolerate very well and oxygen saturations deteriorate quickly. Patient to continue with Airvo at this time. Patient states his breathing feels better today and will discuss with respiratory about titrating the settings. Educated the patient again on the importance of increasing activity and incentive spirometer use at least 10 times every hour while awake. Patient's blood sugars continue to be slightly elevated and long-acting will be increased to 22 units daily and will continue with s liding scale as well. Further recommendations depends on the clinical course of the patient. Prognosis is guarded
--- NOTE | 2020-10-01 14:56 | P.PN ---
Subjective Progress Note Date: 10/01/20 Principal diagnosis: CoVID 19 pneumonitis Patient was seen and can today 10/01/2020 in follow-up on the regular medical floor. He is awake and alert in no acute distress. Up ambulating in his room. No worsening shortness of breath, cough or congestion. He is still requiring are both alive flow nasal cannula at 60 L and 80% FiO2 to maintain O2 saturation low 90s. He has completed a course of Remdesivir, received convalescent plasma, remains on Lovenox and IV Solu-Medrol. On IV diuretics. Chest x-ray shows stable diffuse bilateral airspace disease. Objective - Vital Signs Vital signs: Vital Signs Temp 97.9 F 10/01/20 11:00 Pulse 76 10/01/20 11:00 Resp 26 H 10/01/20 11:00 BP 128/69 10/01/20 11:00 Pulse Ox 92 L 10/01/20 11:00 Intake & Output 09/30/20 10/01/20 10/01/20 18:59 06:59 18:59 Intake Total 100 700 Output Total 800 Balance 100 700 -800 Intake: Intake, IV Titration 100 100 Amount Cefepime 2 gm In Sodium 100 100 Chloride 0.9% 100 ml @ 25 mls/hr IVPB Q12HR [facility] Rx #:[id number] Oral 600 Output: Urine 800 Stool 0 Other: Voiding Method Urinal Urinal Urinal # Voids 2 # Bowel Movements 2 1 - Exam GENERAL EXAM: Alert, obese, pleasant 59-year-old gentleman, remains on AirVo high flow oxygen at 60 L and 80% FiO2, comfortable in no apparent distress. HEAD: Normocephalic. EYES: Normal reaction of pupils, equal size. NOSE: Clear with pink turbinates. THROAT: No erythema or exudates. NECK: No masses, no JVD. CHEST: No chest wall deformity. LUNGS: Equal air entry with bilateral scattered rhonchi. CVS: S1 and S2 normal with no audible murmur, regular rhythm. ABDOMEN: No hepatosplenomegaly, normal bowel sounds, no guarding or rigidity. SPINE: No scoliosis or deformity SKIN: No rashes CENTRAL NERVOUS SYSTEM: No focal deficits, tone is normal in all 4 extremities. EXTREMITIES: There is no peripheral edema. No clubbing, no cyanosis. Peripheral pulses are intact. - Labs CBC & Chem 7: 10/01/20 09:10 10/01/20 09:10 Labs: Abnormal Lab Results - Last 24 Hours (Table) 09/30/20 09/30/20 10/01/20 Range/Units 16:48 20:34 07:21 WBC (3.8-10.6) k/uL Neutrophils # (1.3-7.7) k/uL Lymphocytes # (1.0-4.8) k/uL Sodium (137-145) mmol/L Potassium (3.5-5.1) mmol/L Chloride (98-107) mmol/L BUN (9-20) mg/dL Glucose (74-99) mg/dL POC Glucose (mg/dL) 215 H 306 H 245 H (75-99) mg/dL 10/01/20 10/01/20 10/01/20 Range/Units 09:10 09:10 11:44 WBC 17.8 H (3.8-10.6) k/uL Neutrophils # 16.8 H (1.3-7.7) k/uL Lymphocytes # 0.2 L (1.0-4.8) k/uL Sodium 132 L (137-145) mmol/L Potassium 5.2 H (3.5-5.1) mmol/L Chloride 97 L (98-107) mmol/L BUN 33 H (9-20) mg/dL Glucose 346 H (74-99) mg/dL POC Glucose (mg/dL) 249 H (75-99) mg/dL Assessment and Plan Assessment: 1 Acute hypoxic respiratory failure secondary to acute CoVID 19 pneumonitis, currently on AirVo 60 L and 80% FiO2. Completed Remdesivir, received convalescent plasma. Remains on Lovenox, IV Solu-Medrol, and vitamin supplements. 2 History of asthma, currently inactive secondary to above 3 History of prostate cancer status post prostatectomy 4 Obesity 5 Lifelong nonsmoker 6 Hyperlipidemia 7 History of gastric esophageal reflux disease 8 History of asbestos 6 exposure while in the Plan: The patient was seen and evaluated by Dr. Gilman Chest x-ray reviewed Continue IV diuretics Completed Remdesivir, received convalescent plasma Remains on IV Solu-Medrol, Lovenox and vitamin supplements Continue AirVo high flow Titrate down the FiO2 as tolerated We'll continue to follow and make further recommendations based on his clinical status I, the cosigning physician, performed a history & physical examination of the patient. Lungs sounds with few scattered rhonchi. Maintaining good O2 sat urations in the 90s on AirVo high flow at 60 L and 80% FiO2. I discussed the assessment and plan of care with my nurse practitioner, Pauly Grayson. I attest to the above note as dictated by her.
[2020-10-01 17:05] LABS: Glucose,Whole Blood 234 mg/dL (75-99)
[2020-10-01] MEDS ORDERED: INSULIN DETEMIR (LEVEMIR) 100 UNIT/ML SYR SQ SCH (21:00)
[2020-10-01 21:30] LABS: Glucose,Whole Blood 359 mg/dL (75-99)
[2020-10-01] MEDS: MELATONIN 5 MG TABLET PO SCH (21:36)
[2020-10-02] MEDS: methylPREDNISolone SOD SUCCI 125 MG/2 ML VIAL IV SCH ×4 (05:16→23:34)
[2020-10-02] MEDS: guaiFENesin-Coden 100-10MG/5ML 10 ML CUP PO SCH ×4 (05:17→23:35)
[2020-10-02 07:08] LABS: Glucose,Whole Blood 234 mg/dL (75-99)
[2020-10-02] MEDS: FAMOTIDINE 20 MG TAB PO SCH (08:11)
[2020-10-02] MEDS: ZINC SULFATE 220 MG CAP PO SCH (08:11)
[2020-10-02] MEDS: ATORVASTATIN 80 MG TAB PO SCH (08:11)
[2020-10-02] MEDS: amLODIPine 5 MG TAB PO SCH (08:11)
[2020-10-02] MEDS: ASCORBIC ACID 500 MG TAB PO SCH (08:11)
[2020-10-02] MEDS: BENZONATATE 100 MG CAP PO SCH ×3 (08:11→22:03)
[2020-10-02] MEDS: ENOXAPARIN 60 MG/0.6 ML SYRINGE SQ SCH ×2 (08:12→22:03)
[2020-10-02] MEDS: FUROSEMIDE 10 MG/ML 4 ML VIAL IV SCH (08:12)
[2020-10-02] MEDS: INSULIN ASPART (NovoLOG) 100 UNIT/ML VIAL SQ SCH ×5 (08:12→22:04)
[2020-10-02] MEDS: CEFEPIME 2 GM in SODIUM CHLORIDE 0.9% 100 ML IVPB SCH (08:12)
[2020-10-02] MEDS: CHOLECALCIFEROL 400 UNIT TAB PO SCH (08:13)
[2020-10-02] MEDS: buPROPion 75 MG TAB PO SCH (08:13)
[2020-10-02] MEDS: ALBUTEROL HFA INHALER INHALATION SCH ×4 (08:52→19:51)
[2020-10-02] MEDS: SYMBICORT 160-4.5 MCG INHALER INHALATION SCH ×2 (08:53→19:47)
[2020-10-02 12:04] LABS: Glucose,Whole Blood 253 mg/dL (75-99)
[2020-10-02] MEDS ORDERED: INSULIN ASPART (NovoLOG) 100 UNIT/ML VIAL SQ ONE (12:27)
--- NOTE | 2020-10-02 13:56 | P.PN ---
Subjective Progress Note Date: 10/02/20 Principal diagnosis: CoVID 19 pneumonitis Patient was seen and can today 10/01/2020 in follow-up on the regular medical floor. He is awake and alert in no acute distress. Up ambulating in his room. No worsening shortness of breath, cough or congestion. He is still requiring are both alive flow nasal cannula at 60 L and 80% FiO2 to maintain O2 saturation low 90s. He has completed a course of Remdesivir, received convalescent plasma, remains on Lovenox and IV Solu-Medrol. On IV diuretics. Chest x-ray shows stable diffuse bilateral airspace disease. The patient is seen today 10/02/2020 in follow-up on the regular medical floor. He is currently sitting up in a chair at the bedside. Awake and alert in no acute distress. He remains on AirVo high flow oxygen at 60 L and 80% FiO2 to maintain O2 saturation in the low 90s. States he is feeling better today. A bit frustrated of the duration of his illness. This is day number 17. He remains on bronchodilators, IV Solu-Medrol, empiric antibiotics, IV diuretics, vitamin supplements. Anticoagulated with Lovenox. Objective - Vital Signs Vital signs: Vital Signs Temp 97.9 F 10/02/20 11:00 Pulse 85 10/02/20 11:00 Resp 22 10/02/20 11:00 BP 162/91 10/02/20 11:00 Pulse Ox 90 L 10/02/20 11:56 Intake & Output 10/01/20 10/02/20 10/02/20 18:59 06:59 18:59 Intake Total 820 700 Output Total 1200 0 1280 Balance -380 700 -1280 Intake: Intake, IV Titration 100 100 Amount Cefepime 2 gm In Sodium 100 100 Chloride 0.9% 100 ml @ 25 mls/hr IVPB Q12HR [facility] Rx #:[id number] Oral 720 600 Output: Urine 1200 1280 Stool 0 0 Other: Voiding Method Urinal Urinal Urinal # Voids 3 # Bowel Movements 1 1 - Exam GENERAL EXAM: Alert, obese, pleasant 59-year-old gentleman, remains on AirVo high flow oxygen at 60 L and 80% FiO2, comfortable in no apparent distress. HEAD: Normocephalic. EYES: Normal reaction of pupils, equal size. NOSE: Clear with pink turbinates. THROAT: No erythema or exudates. NECK: No masses, no JVD. CHEST: No chest wall deformity. LUNGS: Equal air entry with bilateral scattered rhonchi. CVS: S1 and S2 normal with no audible murmur, regular rhythm. ABDOMEN: No hepatosplenomegaly, normal bowel sounds, no guarding or rigidity. SPINE: No scoliosis or deformity SKIN: No rashes CENTRAL NERVOUS SYSTEM: No focal deficits, tone is normal in all 4 extremities. EXTREMITIES: There is no peripheral edema. No clubbing, no cyanosis. Peripheral pulses are intact. - Labs CBC & Chem 7: 10/01/20 09:10 10/01/20 09:10 Labs: Abnormal Lab Results - Last 24 Hours (Table) 10/01/20 10/01/20 10/02/20 Range/Units 17:04 21:29 07:06 POC Glucose (mg/dL) 234 H 359 H 234 H (75-99) mg/dL 10/02/20 Range/Units 12:03 POC Glucose (mg/dL) 253 H (75-99) mg/dL Assessment and Plan Assessment: 1 Acute hypoxic respiratory failure secondary to acute CoVID 19 pneumonitis, currently on AirVo 60 L and 80% FiO2. Completed Remdesivir, received convalescent plasma. Remains on Lovenox, IV Solu-Medrol, and vitamin supplements. 2 History of asthma, currently inactive secondary to above 3 History of prostate cancer status post prostatectomy 4 Obesity 5 Lifelong nonsmoker 6 Hyperlipidemia 7 History of gastric esophageal reflux disease 8 History of asbestos 6 exposure while in the Plan: The patient was seen and evaluated by Dr. Gilman Continue IV diuretics Remains on IV Solu-Medrol, Lovenox and vitamin supplements Continue AirVo high flow Titrate down the FiO2 as tolerated We'll continue to follow and make further recommendations based on his clinical status I, the cosigning physician, performed a history & physical examination of the patient. Lungs sounds with few scattered rhonchi. Maintaining good O2 saturations in the 90s on AirVo high flow at 60 L and 80% FiO2. I discussed the assessment and plan of care with my nurse practitioner, Pauly Grayson. I attest to the above note as dictated by her.
--- NOTE | 2020-10-02 14:54 | P.PN ---
Subjective Progress Note Date: 10/02/20 This is a pleasant 59 years old male with multiple medical problems as below including hyperlipidemia, GERD, asthma, history of prostate cancer, PTSD and history of asthma asbestos exposure. He follows at the [facility]. He presents because of dyspnea and generalized weakness and muscle pain. No c oughing or chest pain. Patient had persistent dyspnea despite using his inhalers No abdominal pain or fever, no diarrhea or change in bowel habits. No dysuria. No headache or weakness Vitals are unremarkable and patient is afebrile. He is currently saturating 92% on room air Admission labs showing leukocytosis of 15 K, d-dimer was elevated at 0.97, BMP and liver enzymes are unremarkable. Covid test is positive EKG showing sinus tachycardia at [address]-T changes CTA of the chest, [place] pulmonary interstitial pneumonia remained no evidence of pulmonary embolism Was given 1 dose of Solu-Medrol and 1 dose of Zithromax and ceftriaxone 09/17/2020 Patient in mild respiratory distress with significant coughing asking for something to help him, Robitussin ac is been added. He is on 2.5-3 L/m oxygen via nasal cannula Continue with dexamethasone and Lovenox and remdesivir Follow-up chest x-ray and inflammatory markers tomorrow 09/18/2020 Patient is breathing easily, patient is still coughing and not completely resolved. No chest pain. Saturating in the 90s with oxygen 3-5 L/m. Pulmonary team on the case and patient is found closely by Dr. Ocampo, Who ordered inflammatory markers and chest x-ray: Findings consistent with patient's history of pneumonia, progression compared to prior exam .Continue with treatment as per recommendation by pulmonary team, is currently on dexamethasone, Lovenox and remdesivir, also on vitamin C and zinc. Antibiotics were stopped by pulmonary team 09/22/2020 Patient was admitted with Covid pneumonia, he is a still on 50 L oxygen via high flow nasal cannula, patient reports some improvement compared to yesterday, he is not in significant respiratory distress, coughing is better controlled. He had 2 loose bowel movement today which is suspicious for Covid gastroenteritis but no abdominal pain or vomiting His d-dimer is slightly elevated at 1.28. Patient currently on vitamin C and zinc Solu-Medrol 60 mg and Lovenox 60 mg twice daily .patient also was placed on insulin 10 units at bedtime for better glucose control (Not home medication ) 09/23/2020 Patient is awake and alert. Sitting on a chair with a breathing machine next to him. Patient with similar respiratory distress as of yesterday. With some bothering cough. A still have diarrhea about twice per day. His oxygen requirements fluctuating between 50-60 L via high flow nasal cannula. Chest x-ray showed stable diffuse bilateral infiltrates. We will check labs and inflammatory markers tomorrow Patient to continue with same treatment O vitamin C, zinc, centimeters 60 mg and Lovenox 60 mg twice daily. 09/24/2020 Patient remains in respiratory distress his breathing feels harder today with Ceasar course coughing. Also he is having 4 bouts of diarrhea through the day. He is a still on 60 L oxygen via high flow nasal cannula Leukocytosis 19 K. BMP stable. Lactate dehydrogenase slightly elevated at 340 as well as C-reactive protein at 1.0. Normal procalcitonin at 0.08 Pulmonary service on the case 09/25/2020 Patient breathing is easier today, and saturating 90% on 50 L via high flow nasal cannula. His still have diarrhea about 4 times per day Sugar is controlled Continue with same treatment as above, vitamin C, zinc, centimeters 60 mg and Lovenox 60 mg twice daily. 09/26/2020 Patient clinically remains the same, one day he had some improvement in oxygen and subsequently later that day and goes up to 60 L, is still suffering from respiratory difficulty and breathing difficulty. His diarrhea is slightly better today. Patient continue on the same treatment with IV Lasix twice daily, Solu-Medrol 60 mg, Lovenox 60 mg twice daily, vitamin C and zinc. Check inflammatory markers and the morning 09/27/2020 Patient today feels breathing easier, his bowel movement is semisolid, he had 2 bowel movements today which were semisolid. His LDH is slightly worse, C-reactive protein was somewhat checked was normal at 0.4 He has been on Solu-Medrol Medrol 60 mg, also Lasix 40 mg twice daily and cefepime twice daily were added to the regimen, besides his other Covid pneumonia treatment including vitamin C, zinc and Lovenox. History of her on the high side because he is on his steroids and Levemir was increased from 10 to 18 units at bedtime check chest x-ray, inflammatory markers, pro-calcitonin and labs tomorrow 09/28/2020 Patient states he is not having a good day and his oxygen status has worsened. Patient currently on Airvo with an O2 flow rate of 60 and an FiO2 of 90%. D- dimer today trending down at 0.89. White blood count elevated at 28.5, sodium is 139, potassium is 4.6, current creatinine is 0.9. Blood sugar slightly elevated and will continue sliding scale and long-acting 18 units will be added. Patient is also maintained on IV Lasix and will continue at this time along with IV antibiotics in the form of cefepime, Lovenox, vitamin C and E, and zinc supplements, and IV steroids. Discussed with the patient about using his incentive spirometer at least 10 times every hour while awake and increasing activity as tolerated. Patient has been lying in bed all day today. 09/29/2020 Patient is seen and evaluated and follow-up currently sitting up in the chair still remains on Airvo with oxygen saturation 89-90%. No real improvement from yesterday although feels somewhat less fatigued. Blood sugars continue to be slightly elevated and will continue with current regimen. Patient's diet continues to be poor although he states has improved somewhat. Continue to reeducate the patient on incentive spirometer use and increasing activity as tolerated. Patient continues to be severely dyspneic with exertion. 09/30/2020 Patient is seen today and remains on Airvo with O2 flow rate of 60 and an FiO2 of 80. Patient requesting to attempt to wean FiO2 although patient continues to be extremely dyspneic, tachypneic, and anxious. Will repeat a.m. chest x-ray as patient is not really showing much improvement over the last few days. He is currently maintained on IV cefepime and will continue at this time. Patient's blood sugars have been elevated and adjustments have been made that long acting insulin and will continue with sliding scale as well. White blood count slightly improved at 22.7 today, current sodium is 137, potassium is 5.0, creatinine is 0.7. Patient is afebrile. Patient is tolerating diet although not much of an appetite he states. Patient is urinating and having bowel movements with no difficulties. 10/01/2020 Patient is seen in follow-up today continues to be on the airvo with a flow rate of 60 and FiO2 of 80 and oxygen saturation is 92%. Patient states his breathing feels improved today. Patient is more alert and active today. Chest x-ray today shows stable diffuse bilateral airspace disease. She continues on IV steroids along with IV Lasix, zinc, vitamin C and D and Lovenox. Pulmonary following. Blood sugars continue to be elevated and will adjust long-acting and continue with sliding scale. White blood count continues to trend down and is 17.8. Sodium slightly low at 132, potassium is 5.2, and current creatinine is 0.83. 10/02/2020 Patient is seen today continues to be on Airvo and discussed with respiratory about weaning as tolerated. Current O2 flow rate is 60 with an FiO2 of 80 and patient is 90%. Patient is becoming quite agitated about continuing to be at the hospital. Discussed with the patient about being able to maintain oxygenation off of the high flow prior to discharge. Blood sugars continue to be slightly elevated and will make further adjustments on the long-acting at 25 units daily and will continue sliding scale. Will discontinue IV antibiotics as patient has been on for more than one week. White blood count trending down and is currently 17.8 and will repeat a.m. labs. Continue to encourage to increase activity as tolerated and continue with incentive spirometer use. Review of Systems CONSTITUTIONAL: No fever, no malaise, reports frustration, anxious. HEENT: No recent visual problems or hearing problems. Denied any sore throat. CARDIOVASCULAR: No orthopnea, PND, no palpitations, no syncope. PULMONARY: Reports chest tightness with inspiration, although slightly improved. no hemoptysis. Reports exertional dyspnea that is improved today GASTROINTESTINAL: No diarrhea, no nausea, no vomiting, no abdominal pain. Normoactive bowel sounds. NEUROLOGICAL: No headaches, no reports of weakness, no numbness. Objective - Vital Signs Vital signs: Vital Signs Temp 97.9 F 10/02/20 05:00 Pulse 76 10/02/20 05:00 Resp 18 10/02/20 07:28 BP 143/82 10/02/20 05:00 Pulse Ox 90 L 10/02/20 08:53 Intake & Output 10/01/20 10/02/20 10/02/20 18:59 06:59 18:59 Intake Total 820 700 Output Total 1200 0 780 Balance -380 700 -780 Intake: Intake, IV Titration 100 100 Amount Cefepime 2 gm In Sodium 100 100 Chloride 0.9% 100 ml @ 25 mls/hr IVPB Q12HR [facility] Rx #:[id number] Oral 720 600 Output: Urine 1200 780 Stool 0 0 Other: Voiding Method Urinal Urinal Urinal # Voids 3 # Bowel Movements 1 - Exam GENERAL: The patient is alert and oriented x3, not in any acute distress. Well developed, well nourished, obese HEENT: Pupils are round and equally reacting to light. EOMI. No scleral icterus. No conjunctival pallor. Normocephalic, atraumatic. No pharyngeal erythema. No thyromegaly. CARDIOVASCULAR: S1 and S2 present. No murmurs, rubs, or gallops. PULMONARY: Diminished breath sounds bilaterally with some scattered rhonchi noted ABDOMEN: Soft, nontender, nondistended, normoactive bowel sounds. No palpable organomegaly. MUSCULOSKELETAL: No joint swelling or deformity. EXTREMITIES: No cyanosis, clubbing, or pedal edema. NEUROLOGICAL: Gross neurological examination did not reveal any focal deficits. SKIN: No rashes. no petechiae. - Labs CBC & Chem 7: 10/01/20 09:10 10/01/20 09:10 Labs: Abnormal Lab Results - Last 24 Hours (Table) 10/01/20 10/01/20 10/01/20 Range/Units 09:10 09:10 11:44 WBC 17.8 H (3.8-10.6) k/uL Neutrophils # 16.8 H (1.3-7.7) k/uL Lymphocytes # 0.2 L (1.0-4.8) k/uL Sodium 132 L (137-145) mmol/L Potassium 5.2 H (3.5-5.1) mmol/L Chloride 97 L (98-107) mmol/L BUN 33 H (9-20) mg/dL Glucose 346 H (74-99) mg/dL POC Glucose (mg/dL) 249 H (75-99) mg/dL 10/01/20 10/01/20 10/02/20 Range/Units 17:04 21:29 07:06 WBC (3.8-10.6) k/uL Neutrophils # (1.3-7.7) k/uL Lymphocytes # (1.0-4.8) k/uL Sodium (137-145) mmol/L Potassium (3.5-5.1) mmol/L Chloride (98-107) mmol/L BUN (9-20) mg/dL Glucose (74-99) mg/dL POC Glucose (mg/dL) 234 H 359 H 234 H (75-99) mg/dL Assessment and Plan Assessment: Bilateral Covid pneumonia Increase inflammatory markers secondary to above Covid gastroenteritis Hyperlipidemia History of GERD History of asthma, not an active issue History of prostate cancer PTSD History of asbestos exposure DVT prophylaxis: Subcutaneous Lovenox GI Prophylaxis: Ppi Plan: Continue with current medications. Pulmonary following closely. Attempting to wean FiO2 as tolerated although patient does not tolerate very well and oxygen saturations deteriorate quickly. Patient to continue with Airvo at this time. Patient states his breathing feels better today and will discuss with respiratory about titrating the settings further. Educated the patient again on the importance of increasing activity and incentive spirometer use at least 10 times every hour while awake. Patient's blood sugars continue to be slightly elevated and long-acting will be increased to 25 units daily and will continue with sliding scale as well. Further recommendations depends on the clinical course of the patient. Prognosis is guarded
[2020-10-02 17:08] LABS: Glucose,Whole Blood 284 mg/dL (75-99)
[2020-10-02 20:25] LABS: Glucose,Whole Blood 286 mg/dL (75-99)
[2020-10-02] MEDS ORDERED: INSULIN DETEMIR (LEVEMIR) 100 UNIT/ML SYR SQ SCH (21:00)
[2020-10-02] MEDS: MELATONIN 5 MG TABLET PO SCH (22:03)
[2020-10-02] MEDS: ALPRAZolam 0.25 MG TAB PO PRN (22:04)
[2020-10-03] MEDS: methylPREDNISolone SOD SUCCI 125 MG/2 ML VIAL IV SCH ×4 (04:49→23:42)
[2020-10-03] MEDS: guaiFENesin-Coden 100-10MG/5ML 10 ML CUP PO SCH ×4 (05:08→23:43)
[2020-10-03 07:18] LABS: Glucose,Whole Blood 194 mg/dL (75-99)
[2020-10-03 07:26] LABS: Basophils # (A) 0.1 k/uL (0-0.2); Basophils % (A) 1 %; Eosinophils # (A) 0.1 k/uL (0-0.7); Eosinophils % (A) 1 %; HCT 47.9 % (39.0-53.0); HGB 15.6 gm/dL (13.0-17.5); Lymphocytes # (A) 0.3 k/uL (1.0-4.8); Lymphocytes % (A) 2 %; MCH 29.3 pg (25.0-35.0); MCHC 32.7 g/dL (31.0-37.0); MCV 89.5 fL (80.0-100.0); Mean Platelet Volume 7.8; Monocytes # (A) 0.8 k/uL (0-1.0); Monocytes % (A) 4 %; Neutrophils # (A) 18.1 k/uL (1.3-7.7); Neutrophils % (A) 93 %; Platelet Count 286 k/uL (150-450); RBC 5.35 m/uL (4.30-5.90); RDW 13.3 % (11.5-15.5); WBC 19.6 k/uL (3.8-10.6)
[2020-10-03] MEDS: SYMBICORT 160-4.5 MCG INHALER INHALATION SCH ×2 (08:36→20:27)
[2020-10-03] MEDS: ALBUTEROL HFA INHALER INHALATION SCH ×4 (08:36→20:26)
[2020-10-03] MEDS: INSULIN ASPART (NovoLOG) 100 UNIT/ML VIAL SQ SCH ×7 (09:24→21:19)
[2020-10-03] MEDS: BENZONATATE 100 MG CAP PO SCH ×3 (09:25→21:20)
[2020-10-03] MEDS: buPROPion 75 MG TAB PO SCH (09:25)
[2020-10-03] MEDS: CHOLECALCIFEROL 400 UNIT TAB PO SCH (09:25)
[2020-10-03] MEDS: ASCORBIC ACID 500 MG TAB PO SCH (09:25)
[2020-10-03] MEDS: amLODIPine 5 MG TAB PO SCH (09:25)
[2020-10-03] MEDS: FAMOTIDINE 20 MG TAB PO SCH (09:26)
[2020-10-03] MEDS: ZINC SULFATE 220 MG CAP PO SCH (09:26)
[2020-10-03] MEDS: FUROSEMIDE 10 MG/ML 4 ML VIAL IV SCH (09:26)
[2020-10-03] MEDS: ENOXAPARIN 60 MG/0.6 ML SYRINGE SQ SCH ×2 (09:27→21:19)
[2020-10-03] MEDS: ATORVASTATIN 80 MG TAB PO SCH (09:30)
[2020-10-03] MEDS: ALPRAZolam 0.25 MG TAB PO PRN ×2 (09:37→21:26)
[2020-10-03 11:55] LABS: Glucose,Whole Blood 350 mg/dL (75-99)
--- NOTE | 2020-10-03 12:11 | XR ---
EXAMINATION TYPE: XR chest 1V DATE OF EXAM: 10/03/2020 COMPARISON: 10/01/2020 HISTORY: Short of breath TECHNIQUE: FINDINGS: There is patchy peripheral pulmonary airspace and interstitial infiltrates. Heart is enlarg ed. There is no gross heart failure. There is no evidence of pleural effusion. Mediastinum is normal. IMPRESSION: Bilateral peripheral pneumonia is improved slightly compared to recent exam. No heart chelsea lure seen. Cardiomegaly unchanged.
--- NOTE | 2020-10-03 12:58 | P.PN ---
Subjective Progress Note Date: 10/03/20 Principal diagnosis: CoVID 19 pneumonitis Patient was seen and can today 10/01/2020 in follow-up on the regular medical floor. He is awake and alert in no acute distress. Up ambulating in his room. No worsening shortness of breath, cough or congestion. He is still requiring are both alive flow nasal cannula at 60 L and 80% FiO2 to maintain O2 saturation low 90s. He has completed a course of Remdesivir, received convalescent plasma, remains on Lovenox and IV Solu-Medrol. On IV diuretics. Chest x-ray shows stable diffuse bilateral airspace disease. The patient is seen today 10/02/2020 in follow-up on the regular medical floor. He is currently sitting up in a chair at the bedside. Awake and alert in no acute distress. He remains on AirVo high flow oxygen at 60 L and 80% FiO2 to maintain O2 saturation in the low 90s. States he is feeling better today. A bit frustrated of the duration of his illness. This is day number 17. He remains on bronchodilators, IV Solu-Medrol, empiric antibiotics, IV diuretics, vitamin supplements. Anticoagulated with Lovenox. The patient is seen today 10/03/2020 in follow-up on the regular medical floor. He is awake and alert in no acute distress. Up in a chair at the bedside. Continued on airflow high flow oxygen at 60 L and 80% FiO2 with O2 saturation 92%. Lungs continue to have crackles in the bilateral posterior bases. He has completed his course of Remdesivir. He is receiving a second unit of convalescent plasma. He remains on Lovenox, IV Solu-Medrol, IV diuretics, Symbicort, albuterol. Blood and sputum cultures reveal no growth. White count 19.6. Hemoglobin 15.6. Lymphocytes 0.3. Chest x-ray shows some slight improvement in the bilateral peripheral CoVID pneumonia. Objective - Vital Signs Vital signs: Vital Signs Temp 97.5 F L 10/03/20 11:00 Pulse 101 H 10/03/20 11:00 Resp 20 10/03/20 11:00 BP 144/87 10/03/20 11:00 Pulse Ox 92 L 10/03/20 12:07 Intake & Output 10/02/20 10/03/20 10/03/20 18:59 06:59 18:59 Intake Total 150 800 Output Total 1280 900 Balance -1130 -100 Intake: IV 50 0.9 50 Intake, IV Titration 100 Amount Cefepime 2 gm In Sodium 100 Chloride 0.9% 100 ml @ 25 mls/hr IVPB Q12HR [facility] Rx #:[id number] Oral 800 Output: Urine 1280 900 Other: Voiding Method Urinal Urinal Urinal # Voids 2 # Bowel Movements 1 1 1 - Exam GENERAL EXAM: Alert, obese, 59-year-old gentleman, remains on AirVo high flow oxygen at 60 L and 80% FiO2, comfortable in no apparent distress. HEAD: Normocephalic. EYES: Normal reaction of pupils, equal size. NOSE: Clear with pink turbinates. THROAT: No erythema or exudates. NECK: No masses, no JVD. CHEST: No chest wall deformity. LUNGS: Equal air entry with bilateral scattered rhonchi, crackles in the posterior bases. CVS: S1 and S2 normal with no audible murmur, regular rhythm. ABDOMEN: No hepatosplenomegaly, normal bowel sounds, no guarding or rigidity. SPINE: No scoliosis or deformity SKIN: No rashes CENTRAL NERVOUS SYSTEM: No focal deficits, tone is normal in all 4 extremities. EXTREMITIES: There is trace peripheral edema. No clubbing, no cyanosis. Peripheral pulses are intact. - Labs CBC & Chem 7: 10/03/20 06:53 10/01/20 09:10 Labs: Abnormal Lab Results - Last 24 Hours (Table) 10/02/20 10/02/20 10/03/20 Range/Units 17:07 20:24 06:53 WBC 19.6 H (3.8-10.6) k/uL Neutrophils # 18.1 H (1.3-7.7) k/uL Lymphocytes # 0.3 L (1.0-4.8) k/uL POC Glucose (mg/dL) 284 H 286 H (75-99) mg/dL 10/03/20 10/03/20 Range/Units 07:17 11:54 WBC (3.8-10.6) k/uL Neutrophils # (1.3-7.7) k/uL Lymphocytes # (1.0-4.8) k/uL POC Glucose (mg/dL) 194 H 350 H (75-99) mg/dL Assessment and Plan Assessment: 1 Acute hypoxic respiratory failure secondary to acute CoVID 19 pneumonitis, currently on AirVo 60 L and 80% FiO2. Completed Remdesivir, received convalescent plasma x 2. Remains on Lovenox, IV Solu-Medrol, and vitamin supplements. 2 History of asthma, currently inactive. On Symbicort and albuterol 3 History of prostate cancer status post prostatectomy 4 Obesity 5 Lifelong nonsmoker 6 Hyperlipidemia 7 History of gastric esophageal reflux disease 8 History of asbestos 6 exposure while in the Plan: The patient was seen and evaluated by Dr. Gilman Chest x-ray and labs reviewed, improved slightly Continue IV diuretics, IV Solu-Medrol, Lovenox and vitamin supplements Second unit of convalescent plasma ordered Continue AirVo high flow Titrate down the FiO2 as tolerated We'll continue to follow and make further recommendations based on his clinical status I, the cosigning physician, performed a history & physical examination of the patient. Lungs sounds with few scattered rhonchi, crackles in the bilateral posterior bases. Maintaining good O2 saturations in the 90s on AirVo high flow at 60 L and 80% FiO2. I discussed the assessment and plan of care with my nurse practitioner, Pauly Grayson. I attest to the above note as dictated by her.
[2020-10-03 13:05] LABS: African American GFR (CKD) 114.1 (60.0-200.0); Anion Gap 7.4 mmol/L (4.00-12.00); BUN/Creat Ratio 43.75 Ratio (12.00-20.00); Carbon Dioxide 28.6 mmol/L (21.6-31.8); Non-African American GFR(CKD) 98.5 (60.0-200.0)
--- NOTE | 2020-10-03 15:52 | P.PN ---
Subjective his is a pleasant 59 years old male with multiple medical problems as below including hyperlipidemia, GERD, asthma, history of prostate cancer, PTSD and history of asthma asbestos exposure. He follows at the [facility]. He presents because of dyspnea and generalized weakness and muscle pain. No coughing or chest pain. Patient had persistent dyspnea despite using his inhalers No abdominal pain or fever, no diarrhea or change in bowel habits. No dysuria. No headache or weakness Vitals are unremarkable and patient is afebrile. He is currently saturating 92% on room air Admission labs showing leukocytosis of 15 K, d-dimer was elevated at 0.97, BMP and liver enzymes are unremarkable. Covid test is positive EKG showing sinus tachycardia at [address]-T changes CTA of the chest, [place] pulmonary interstitial pneumonia remained no evidence of pulmonary embolism Was given 1 dose of Solu-Medrol and 1 dose of Zithromax and ceftriaxone 09/17/2020 Patient in mild respiratory distress with significant coughing asking for something to help him, Robitussin ac is been added. He is on 2.5-3 L/m oxygen via nasal cannula Continue with dexamethasone and Lovenox and remdesivir Follow-up chest x-ray and inflammatory markers tomorrow 09/18/2020 Patient is breathing easily, patient is still coughing and not completely resolved. No chest pain. Saturating in the 90s with oxygen 3-5 L/m. Pulmonary team on the case and patient is found closely by Dr. Ocampo, Who ordered inflammatory markers and chest x-ray: Findings consistent with patient's history of pneumonia, progression compared to prior exam .Continue wi th treatment as per recommendation by pulmonary team, is currently on dexamethasone, Lovenox and remdesivir, also on vitamin C and zinc. Antibiotics were stopped by pulmonary team 09/22/2020 Patient was admitted with Covid pneumonia, he is a still on 50 L oxygen via high flow nasal cannula, patient reports some improvement compared to yesterday, he is not in significant respiratory distress, coughing is better controlled. He had 2 loose bowel movement today which is suspicious for Covid gastroenteritis but no abdominal pain or vomiting His d-dimer is slightly elevated at 1.28. Patient currently on vitamin C and zinc Solu-Medrol 60 mg and Lovenox 60 mg twice daily .patient also was placed on insulin 10 units at bedtime for better glucose control (Not home medication ) 09/23/2020 Patient is awake and alert. Sitting on a chair with a breathing machine next to him. Patient with similar respiratory distress as of yesterday. With some bothering cough. A still have diarrhea about twice per day. His oxygen requirements fluctuating between 50-60 L via high flow nasal cannula. Chest x-ray showed stable diffuse bilateral infiltrates. We will check labs and inflammatory markers tomorrow Patient to continue with same treatment O vitamin C, zinc, centimeters 60 mg and Lovenox 60 mg twice daily. 09/24/2020 Patient remains in respiratory distress his breathing feels harder today with Ceasar course coughing. Also he is having 4 bouts of diarrhea through the day. He is a still on 60 L oxygen via high flow nasal cannula Leukocytosis 19 K. BMP stable. Lactate dehydrogenase slightly elevated at 340 as well as C-reactive protein at 1.0. Normal procalcitonin at 0.08 Pulmonary service on the case 09/25/2020 Patient breathing is easier today, and saturating 90% on 50 L via high flow nasal cannula. His still have diarrhea about 4 times per day Sugar is controlled Continue with same treatment as above, vitamin C, zinc, centimeters 60 mg and Lovenox 60 mg twice daily. 09/26/2020 Patient clinically remains the same, one day he had some improvement in oxygen and subsequently later that day and goes up to 60 L, is still suffering from respiratory difficulty and breathing difficulty. His diarrhea is slightly better today. Patient continue on the same treatment with IV Lasix twice daily, Solu-Medrol 60 mg, Lovenox 60 mg twice daily, vitamin C and zinc. Check inflammatory markers and the morning 09/27/2020 Patient today feels breathing easier, his bowel movement is semisolid, he had 2 bowel movements today which were semisolid. His LDH is slightly worse, C-reactive protein was somewhat checked was normal at 0.4 He has been on Solu-Medrol Medrol 60 mg, also Lasix 40 mg twice daily and cefepime twice daily were added to the regimen, besides his other Covid pneumon ia treatment including vitamin C, zinc and Lovenox. History of her on the high side because he is on his steroids and Levemir was increased from 10 to 18 units at bedtime check chest x-ray, inflammatory markers, pro-calcitonin and labs tomorrow 09/28/2020 Patient states he is not having a good day and his oxygen status has worsened. Patient currently on Airvo with an O2 flow rate of 60 and an FiO2 of 90%. D- dimer today trending down at 0.89. White blood count elevated at 28.5, sodium is 139, potassium is 4.6, current creatinine is 0.9. Blood sugar slightly elevated and will continue sliding scale and long-acting 18 units will be added. Patient is also maintained on IV Lasix and will continue at this time along with IV antibiotics in the form of cefepime, Lovenox, vitamin C and E, and zinc supplements, and IV steroids. Discussed with the patient about using his incentive spirometer at least 10 times every hour while awake and increasing activity as tolerated. Patient has been lying in bed all day today. 09/29/2020 Patient is seen and evaluated and follow-up currently sitting up in the chair still remains on Airvo with oxygen saturation 89-90%. No real improvement from yesterday although feels somewhat less fatigued. Blood sugars continue to be slightly elevated and will continue with current regimen. Patient's diet continues to be poor although he states has improved somewhat. Continue to reeducate the patient on incentive spirometer use and increasing activity as tolerated. Patient continues to be severely dyspneic with exertion. 09/30/2020 Patient is seen today and remains on Airvo with O2 flow rate of 60 and an FiO2 of 80. Patient requesting to attempt to wean FiO2 although patient continues to be extremely dyspneic, tachypneic, and anxious. Will repeat a.m. chest x-ray as patient is not really showing much improvement over the last few days. He is currently maintained on IV cefepime and will continue at this time. Patient's blood sugars have been elevated and adjustments have been made that long acting insulin and will continue with sliding scale as well. White blood count slightly improved at 22.7 today, current sodium is 137, potassium is 5.0, creatinine is 0.7. Patient is afebrile. Patient is tolerating diet although not much of an appetite he states. Patient is urinating and having bowel movements with no difficulties. 10/01/2020 Patient is seen in follow-up today continues to be on the airvo with a flow rate of 60 and FiO2 of 80 and oxygen saturation is 92%. Patient states his breathing feels improved today. Patient is more alert and active today. Chest x-ray today shows stable diffuse bilateral airspace disease. She continues on IV steroids along with IV Lasix, zinc, vitamin C and D and Lovenox. Pulmonary following. Blood sugars continue to be elevated and will adjust long-acting and continue with sliding scale. White blood count continues to trend down and is 17.8. Sodium slightly low at 132, potassium is 5.2, and current creatinine is 0.83. 10/02/2020 Patient is seen today continues to be on Airvo and discussed with respiratory about weaning as tolerated. Current O2 flow rate is 60 with an FiO2 of 80 and patient is 90%. Patient is becoming quite agitated about continuing to be at the hospital. Discussed with the patient about being able to maintain oxygenation off of the high flow prior to discharge. Blood sugars continue to be slightly elevated and will make further adjustments on the long-acting at 25 units daily and will continue sliding scale. Will discontinue IV antibiotics as patient has been on for more than one week. White blood count trending down and is currently 17.8 and will repeat a.m. labs. Continue to encourage to increase activity as tolerated and continue with incentive spirometer use. 10/03/2020 Patient remains on 60 liters of oxygen Constitutional: Denied any fatigue denied any fever. Cardio vascular: denied any chest pain, palpitations Gastrointestinal denied any nausea vomiting Pulmonary: Denied any shortness of breath cough Neurologic denied any new focal deficits All inpatient medications were reviewed and appropriate changes in these medications as dictated in the interval history and assessment and plan. Objective - Vital Signs Vital signs: Vital Signs Temp 98.5 F 10/03/20 15:27 Pulse 89 10/03/20 15:27 Resp 20 10/03/20 11:00 BP 140/80 10/03/20 15:27 Pulse Ox 91 L 10/03/20 15:27 Intake & Output 10/02/20 10/03/20 10/03/20 18:59 06:59 18:59 Intake Total 150 800 0 Output Total 1280 900 Balance -1130 -100 0 Intake: IV 50 0.9 50 Intake, IV Titration 100 Amount Cefepime 2 gm In Sodium 100 Chloride 0.9% 100 ml @ 25 mls/hr IVPB Q12HR [facility] Rx #:[id number] Oral 800 Blood Product 0 Ffp Pher Conval Covid19 0 Acda 1 Unit [id number] Output: Urine 1280 900 Other: Voiding Method Urinal Urinal Urinal # Voids 2 # Bowel Movements 1 1 1 - Exam PHYSICAL EXAMINATION: GENERAL: The patient is alert and oriented x3, not in any acute distress. Well developed, well nourished. HEENT: Pupils are round and equally reacting to light. EOMI. No scleral icterus. No conjunctival pallor. Normocephalic, atraumatic. No pharyngeal erythema. No thyromegaly. CARDIOVASCULAR: S1 and S2 present. No murmurs, rubs, or gallops. PULMONARY: Chest is clear to auscultation, no wheezing or crackles. ABDOMEN: Soft, nontender, nondistended, normoactive bowel sounds. No palpable organomegaly. MUSCULOSKELETAL: No joint swelling or deformity. EXTREMITIES: No cyanosis, clubbing, or pedal edema. NEUROLOGICAL: Gross neurological examination did not reveal any focal deficits. SKIN: No rashes. Note: Because of COVID 19 isolation, some of the history and physical exam findings are indirect and obtained from nursing staff, and other physician examinations to avoid unnecessary contact with the patient. - Labs CBC & Chem 7: 10/03/20 06:53 10/03/20 06:53 Labs: Abnormal Lab Results - Last 24 Hours (Table) 10/02/20 10/02/20 10/03/20 Range/Units 17:07 20:24 06:53 WBC 19.6 H (3.8-10.6) k/uL Neutrophils # 18.1 H (1.3-7.7) k/uL Lymphocytes # 0.3 L (1.0-4.8) k/uL BUN (9.0-27.0) mg/dL BUN/Creatinine Ratio (12.00-20.00) Ratio Glucose (70-110) mg/dL POC Glucose (mg/dL) 284 H 286 H (75-99) mg/dL 10/03/20 10/03/20 10/03/20 Range/Units 06:53 07:17 11:54 WBC (3.8-10.6) k/uL Neutrophils # (1.3-7.7) k/uL Lymphocytes # (1.0-4.8) k/uL BUN 35.0 H (9.0-27.0) mg/dL BUN/Creatinine Ratio 43.75 H (12.00-20.00) Ratio Glucose 213 H (70-110) mg/dL POC Glucose (mg/dL) 194 H 350 H (75-99) mg/dL Assessment and Plan Plan: Covid pneumoniae Covid gastroenteritis Hyperlipidemia GERD History of asthma,without any acute exacerbation History of prostate cancer PTSD History of asbestos exposure DVT prophylaxis: Subcutaneous Lovenox GI Prophylaxis: Ppi Plan: Continue with current medications. . Patient to continue with Airvo at this time, been off as tolerated. . Patient's blood sugars continue to be slightly elevated and long-actingdue to systemic steroids will increaseinsulin. Further recommendations depends on the clinical course of the patient. Prognosis is guarded
[2020-10-03 17:58] LABS: Glucose,Whole Blood 415 mg/dL (75-99)
[2020-10-03 20:23] LABS: Glucose,Whole Blood 320 mg/dL (75-99)
[2020-10-03] MEDS: INSULIN DETEMIR (LEVEMIR) 100 UNIT/ML SYR SQ SCH (21:19)
[2020-10-03] MEDS: MELATONIN 5 MG TABLET PO SCH (21:20)
[2020-10-04] MEDS: methylPREDNISolone SOD SUCCI 125 MG/2 ML VIAL IV SCH (06:03)
[2020-10-04] MEDS: guaiFENesin-Coden 100-10MG/5ML 10 ML CUP PO SCH (06:04)
[2020-10-04 07:16] LABS: Glucose,Whole Blood 176 mg/dL (75-99)
[2020-10-04] MEDS: ALBUTEROL HFA INHALER INHALATION SCH ×4 (08:07→20:20)
[2020-10-04] MEDS: SYMBICORT 160-4.5 MCG INHALER INHALATION SCH ×2 (08:07→20:20)
[2020-10-04] MEDS: FAMOTIDINE 20 MG TAB PO SCH (09:10)
[2020-10-04] MEDS: FUROSEMIDE 10 MG/ML 4 ML VIAL IV SCH (09:10)
[2020-10-04] MEDS: BENZONATATE 100 MG CAP PO SCH ×3 (09:11→21:26)
[2020-10-04] MEDS: ZINC SULFATE 220 MG CAP PO SCH (09:11)
[2020-10-04] MEDS: CHOLECALCIFEROL 400 UNIT TAB PO SCH (09:11)
[2020-10-04] MEDS: INSULIN ASPART (NovoLOG) 100 UNIT/ML VIAL SQ SCH ×7 (09:11→21:35)
[2020-10-04] MEDS: ASCORBIC ACID 500 MG TAB PO SCH (09:11)
[2020-10-04] MEDS: buPROPion 75 MG TAB PO SCH (09:11)
[2020-10-04] MEDS: amLODIPine 5 MG TAB PO SCH (09:11)
[2020-10-04] MEDS: ATORVASTATIN 80 MG TAB PO SCH (09:11)
[2020-10-04] MEDS: ENOXAPARIN 60 MG/0.6 ML SYRINGE SQ SCH ×2 (09:11→21:27)
[2020-10-04] MEDS: ALPRAZolam 0.25 MG TAB PO PRN ×2 (09:21→21:37)
[2020-10-04 11:15] LABS: Glucose,Whole Blood 371 mg/dL (75-99)
[2020-10-04] MEDS: KETOROLAC 15 MG/ML 1 ML VIAL IVP PRN ×2 (11:52→21:43)
--- NOTE | 2020-10-04 12:16 | P.PN ---
Subjective his is a pleasant 59 years old male with multiple medical problems as below including hyperlipidemia, GERD, asthma, history of prostate cancer, PTSD and history of asthma asbestos exposure. He follows at the [facility]. He presents because of dyspnea and generalized weakness and muscle pain. No coughing or chest pain. Patient had persistent dyspnea despite using his inhalers No abdominal pain or fever, no diarrhea or change in bowel habits. No dysuria. No headache or weakness Vitals are unremarkable and patient is afebrile. He is currently saturating 92% on room air Admission labs showing leukocytosis of 15 K, d-dimer was elevated at 0.97, BMP and liver enzymes are unremarkable. Covid test is positive EKG showing sinus tachycardia at [address]-T changes CTA of the chest, [place] pulmonary interstitial pneumonia remained no evidence of pulmonary embolism Was given 1 dose of Solu-Medrol and 1 dose of Zithromax and ceftriaxone 09/17/2020 Patient in mild respiratory distress with significant coughing asking for something to help him, Robitussin ac is been added. He is on 2.5-3 L/m oxygen via nasal cannula Continue with dexamethasone and Lovenox and remdesivir Follow-up chest x-ray and inflammatory markers tomorrow 09/18/2020 Patient is breathing easily, patient is still coughing and not completely resolved. No chest pain. Saturating in the 90s with oxygen 3-5 L/m. Pulmonary team on the case and patient is found closely by Dr. Ocampo, Who ordered inflammatory markers and chest x-ray: Findings consistent with patient's history of pneumonia, progression compared to prior exam .Continue wi th treatment as per recommendation by pulmonary team, is currently on dexamethasone, Lovenox and remdesivir, also on vitamin C and zinc. Antibiotics were stopped by pulmonary team 09/22/2020 Patient was admitted with Covid pneumonia, he is a still on 50 L oxygen via high flow nasal cannula, patient reports some improvement compared to yesterday, he is not in significant respiratory distress, coughing is better controlled. He had 2 loose bowel movement today which is suspicious for Covid gastroenteritis but no abdominal pain or vomiting His d-dimer is slightly elevated at 1.28. Patient currently on vitamin C and zinc Solu-Medrol 60 mg and Lovenox 60 mg twice daily .patient also was placed on insulin 10 units at bedtime for better glucose control (Not home medication ) 09/23/2020 Patient is awake and alert. Sitting on a chair with a breathing machine next to him. Patient with similar respiratory distress as of yesterday. With some bothering cough. A still have diarrhea about twice per day. His oxygen requirements fluctuating between 50-60 L via high flow nasal cannula. Chest x-ray showed stable diffuse bilateral infiltrates. We will check labs and inflammatory markers tomorrow Patient to continue with same treatment O vitamin C, zinc, centimeters 60 mg and Lovenox 60 mg twice daily. 09/24/2020 Patient remains in respiratory distress his breathing feels harder today with Ceasar course coughing. Also he is having 4 bouts of diarrhea through the day. He is a still on 60 L oxygen via high flow nasal cannula Leukocytosis 19 K. BMP stable. Lactate dehydrogenase slightly elevated at 340 as well as C-reactive protein at 1.0. Normal procalcitonin at 0.08 Pulmonary service on the case 09/25/2020 Patient breathing is easier today, and saturating 90% on 50 L via high flow nasal cannula. His still have diarrhea about 4 times per day Sugar is controlled Continue with same treatment as above, vitamin C, zinc, centimeters 60 mg and Lovenox 60 mg twice daily. 09/26/2020 Patient clinically remains the same, one day he had some improvement in oxygen and subsequently later that day and goes up to 60 L, is still suffering from respiratory difficulty and breathing difficulty. His diarrhea is slightly better today. Patient continue on the same treatment with IV Lasix twice daily, Solu-Medrol 60 mg, Lovenox 60 mg twice daily, vitamin C and zinc. Check inflammatory markers and the morning 09/27/2020 Patient today feels breathing easier, his bowel movement is semisolid, he had 2 bowel movements today which were semisolid. His LDH is slightly worse, C-reactive protein was somewhat checked was normal at 0.4 He has been on Solu-Medrol Medrol 60 mg, also Lasix 40 mg twice daily and cefepime twice daily were added to the regimen, besides his other Covid pneumon ia treatment including vitamin C, zinc and Lovenox. History of her on the high side because he is on his steroids and Levemir was increased from 10 to 18 units at bedtime check chest x-ray, inflammatory markers, pro-calcitonin and labs tomorrow 09/28/2020 Patient states he is not having a good day and his oxygen status has worsened. Patient currently on Airvo with an O2 flow rate of 60 and an FiO2 of 90%. D- dimer today trending down at 0.89. White blood count elevated at 28.5, sodium is 139, potassium is 4.6, current creatinine is 0.9. Blood sugar slightly elevated and will continue sliding scale and long-acting 18 units will be added. Patient is also maintained on IV Lasix and will continue at this time along with IV antibiotics in the form of cefepime, Lovenox, vitamin C and E, and zinc supplements, and IV steroids. Discussed with the patient about using his incentive spirometer at least 10 times every hour while awake and increasing activity as tolerated. Patient has been lying in bed all day today. 09/29/2020 Patient is seen and evaluated and follow-up currently sitting up in the chair still remains on Airvo with oxygen saturation 89-90%. No real improvement from yesterday although feels somewhat less fatigued. Blood sugars continue to be slightly elevated and will continue with current regimen. Patient's diet continues to be poor although he states has improved somewhat. Continue to reeducate the patient on incentive spirometer use and increasing activity as tolerated. Patient continues to be severely dyspneic with exertion. 09/30/2020 Patient is seen today and remains on Airvo with O2 flow rate of 60 and an FiO2 of 80. Patient requesting to attempt to wean FiO2 although patient continues to be extremely dyspneic, tachypneic, and anxious. Will repeat a.m. chest x-ray as patient is not really showing much improvement over the last few days. He is currently maintained on IV cefepime and will continue at this time. Patient's blood sugars have been elevated and adjustments have been made that long acting insulin and will continue with sliding scale as well. White blood count slightly improved at 22.7 today, current sodium is 137, potassium is 5.0, creatinine is 0.7. Patient is afebrile. Patient is tolerating diet although not much of an appetite he states. Patient is urinating and having bowel movements with no difficulties. 10/01/2020 Patient is seen in follow-up today continues to be on the airvo with a flow rate of 60 and FiO2 of 80 and oxygen saturation is 92%. Patient states his breathing feels improved today. Patient is more alert and active today. Chest x-ray today shows stable diffuse bilateral airspace disease. She continues on IV steroids along with IV Lasix, zinc, vitamin C and D and Lovenox. Pulmonary following. Blood sugars continue to be elevated and will adjust long-acting and continue with sliding scale. White blood count continues to trend down and is 17.8. Sodium slightly low at 132, potassium is 5.2, and current creatinine is 0.83. 10/02/2020 Patient is seen today continues to be on Airvo and discussed with respiratory about weaning as tolerated. Current O2 flow rate is 60 with an FiO2 of 80 and patient is 90%. Patient is becoming quite agitated about continuing to be at the hospital. Discussed with the patient about being able to maintain oxygenation off of the high flow prior to discharge. Blood sugars continue to be slightly elevated and will make further adjustments on the long-acting at 25 units daily and will continue sliding scale. Will discontinue IV antibiotics as patient has been on for more than one week. White blood count trending down and is currently 17.8 and will repeat a.m. labs. Continue to encourage to increase activity as tolerated and continue with incentive spirometer use. 10/03/2020 Patient remains on 60 liters of oxygen. 10/04/2020 Patient is presently on 4 L of oxygen patient is comparing of pain in the right knee patient does have severe osteoarthritis patient will be started on Toradol as needed patient is already on Pepcid which will be continued will cut down the steroids. Constitutional: Denied any fatigue denied any fever. Cardio vascular: denied any chest pain, palpitations Gastrointestinal denied any nausea vomiting Pulmonary: Denied any shortness of breath cough Neurologic denied any new focal deficits All inpatient medications were reviewed and appropriate changes in these medications as dictated in the interval history and assessment and plan. Objective - Vital Signs Vital signs: Vital Signs Temp 98.4 F 10/04/20 11:00 Pulse 89 10/04/20 11:00 Resp 19 10/04/20 11:00 BP 157/86 10/04/20 11:00 Pulse Ox 92 L 10/04/20 11:48 Intake & Output 10/03/20 10/04/20 10/04/20 18:59 06:59 18:59 Intake Total 1097 600 Balance 1097 600 Intake: Oral 900 600 Blood Product 197 Ffp Pher Conval Covid19 197 Acda 1 Unit [id number] Other: Voiding Method Urinal Urinal Urinal # Voids 5 3 # Bowel Movements 1 1 - Exam PHYSICAL EXAMINATION: GENERAL: The patient is alert and oriented x3, not in any acute distress. Well developed, well nourished. HEENT: Pupils are round and equally reacting to light. EOMI. No scleral icterus. No conjunctival pallor. Normocephalic, atraumatic. No pharyngeal erythema. No thyromegaly. CARDIOVASCULAR: S1 and S2 present. No murmurs, rubs, or gallops. PULMONARY: Chest is clear to auscultation, no wheezing or crackles. ABDOMEN: Soft, nontender, nondistended, normoactive bowel sounds. No palpable o rganomegaly. MUSCULOSKELETAL: No joint swelling or deformity. EXTREMITIES: No cyanosis, clubbing, or pedal edema. NEUROLOGICAL: Gross neurological examination did not reveal any focal deficits. SKIN: No rashes. Note: Because of COVID 19 isolation, some of the history and physical exam findings are indirect and obtained from nursing staff, and other physician examinations to avoid unnecessary contact with the patient. - Labs CBC & Chem 7: 10/03/20 06:53 10/03/20 06:53 Labs: Abnormal Lab Results - Last 24 Hours (Table) 10/03/20 10/03/20 10/03/20 Range/Units 06:53 17:57 20:22 BUN 35.0 H (9.0-27.0) mg/dL BUN/Creatinine Ratio 43.75 H (12.00-20.00) Ratio Glucose 213 H (70-110) mg/dL POC Glucose (mg/dL) 415 H 320 H (75-99) mg/dL 10/04/20 10/04/20 Range/Units 07:14 11:14 BUN (9.0-27.0) mg/dL BUN/Creatinine Ratio (12.00-20.00) Ratio Glucose (70-110) mg/dL POC Glucose (mg/dL) 176 H 371 H (75-99) mg/dL Assessment and Plan Plan: Covid pneumoniae Covid gastroenteritis acute hypoxic respiratory failure secondary tocovid 19 Hyperlipidemia GERD History of asthma,without any acute exacerbation History of prostate cancer PTSD History of asbestos exposure DVT prophylaxis: Subcutaneous Lovenox GI Prophylaxis: Ppi Plan: Continue with current medications. . Patient to continue with Airvo at this time, been off as tolerated. . Patient's blood sugars continue to be slightly elevated and long-actingdue to systemic steroids will increaseinsulin. Further recommendations depends on the clinical course of the patient. Prognosis is guarded.patient blood sugars are highly elevated because of his diet will monitor the blood sugars on present regimen titrate depending on what his blood sugars at tomorrow
--- NOTE | 2020-10-04 14:22 | P.PN ---
Subjective Progress Note Date: 10/04/20 Principal diagnosis: CoVID 19 pneumonitis Patient was seen and can today 10/01/2020 in follow-up on the regular medical floor. He is awake and alert in no acute distress. Up ambulating in his room. No worsening shortness of breath, cough or congestion. He is still requiring are both alive flow nasal cannula at 60 L and 80% FiO2 to maintain O2 saturation low 90s. He has completed a course of Remdesivir, received convalescent plasma, remains on Lovenox and IV Solu-Medrol. On IV diuretics. Chest x-ray shows stable diffuse bilateral airspace disease. The patient is seen today 10/02/2020 in follow-up on the regular medical floor. He is currently sitting up in a chair at the bedside. Awake and alert in no acute distress. He remains on AirVo high flow oxygen at 60 L and 80% FiO2 to maintain O2 saturation in the low 90s. States he is feeling better today. A bit frustrated of the duration of his illness. This is day number 17. He remains on bronchodilators, IV Solu-Medrol, empiric antibiotics, IV diuretics, vitamin supplements. Anticoagulated with Lovenox. The patient is seen today 10/03/2020 in follow-up on the regular medical floor. He is awake and alert in no acute distress. Up in a chair at the bedside. Continued on airflow high flow oxygen at 60 L and 80% FiO2 with O2 saturation 92%. Lungs continue to have crackles in the bilateral posterior bases. He has completed his course of Remdesivir. He is receiving a second unit of convalescent plasma. He remains on Lovenox, IV Solu-Medrol, IV diuretics, Symbicort, albuterol. Blood and sputum cultures reveal no growth. White count 19.6. Hemoglobin 15.6. Lymphocytes 0.3. Chest x-ray shows some slight improvement in the bilateral peripheral CoVID pneumonia. The patient is seen today 10/04/2020 in follow-up on the regular medical floor. He is currently sitting up in a chair at the bedside. Awake and alert in no acute distress. Breathing a bit easier today compared to yesterday. No worsening shortness of breath, cough or congestion. Remains on airflow at 60 L and 80% FiO2. Current saturation 92%. He is afebrile. He remains on Lovenox, IV Solu-Medrol, IV diuretics, Symbicort, albuterol. He has completed a course of Remdesivir. He has received 2 units of convalescent plasma. Objective - Vital Signs Vital signs: Vital Signs Temp 98.4 F 10/04/20 11:00 Pulse 89 10/04/20 11:00 Resp 19 10/04/20 11:00 BP 157/86 10/04/20 11:00 Pulse Ox 92 L 10/04/20 11:48 Intake & Output 10/03/20 10/04/20 10/04/20 18:59 06:59 18:59 Intake Total 1097 600 Balance 1097 600 Intake: Oral 900 600 Blood Product 197 Ffp Pher Conval Covid19 197 Acda 1 Unit [id number] Other: Voiding Method Urinal Urinal Urinal # Voids 5 3 # Bowel Movements 1 1 - Exam GENERAL EXAM: Alert, obese, 59-year-old gentleman, remains on AirVo high flow oxygen at 60 L and 80% FiO2, comfortable in no apparent distress. HEAD: Normocephalic. EYES: Normal reaction of pupils, equal size. NOSE: Clear with pink turbinates. THROAT: No erythema or exudates. NECK: No masses, no JVD. CHEST: No chest wall deformity. LUNGS: Equal air entry with bilateral scattered rhonchi, crackles in the posterior bases. CVS: S1 and S2 normal with no audible murmur, regular rhythm. ABDOMEN: No hepatosplenomegaly, normal bowel sounds, no guarding or rigidity. SPINE: No scoliosis or deformity SKIN: No rashes CENTRAL NERVOUS SYSTEM: No focal deficits, tone is normal in all 4 extremities. EXTREMITIES: There is trace peripheral edema. No clubbing, no cyanosis. Peripheral pulses are intact. - Labs CBC & Chem 7: 10/03/20 06:53 10/03/20 06:53 Labs: Abnormal Lab Results - Last 24 Hours (Table) 10/03/20 10/03/20 10/04/20 Range/Units 17:57 20:22 07:14 POC Glucose (mg/dL) 415 H 320 H 176 H (75-99) mg/dL 10/04/20 Range/Units 11:14 POC Glucose (mg/dL) 371 H (75-99) mg/dL Assessment and Plan Assessment: 1 Acute hypoxic respiratory failure secondary to acute CoVID 19 pneumonitis, currently on AirVo 60 L and 80% FiO2. Completed Remdesivir, received convalescent plasma x 2. Remains on Lovenox, IV Solu-Medrol, and vitamin supplements. 2 History of asthma, currently inactive. On Symbicort and albuterol 3 History of prostate cancer status post prostatectomy 4 Obesity 5 Lifelong nonsmoker 6 Hyperlipidemia 7 History of gastric esophageal reflux disease 8 History of asbestos 6 exposure while in the Plan: The patient was seen and evaluated by Dr. Gilman Continue IV diuretics, IV Solu-Medrol, Lovenox and vitamin supplements Received a second unit of convalescent plasma Continue AirVo high flow Titrate down the FiO2 as tolerated We'll continue to follow I, the cosigning physician, performed a history & physical examination of the patient. Lungs sounds with few scattered rhonchi, crackles in the bilateral posterior bases. Maintaining good O2 saturations in the 90s on AirVo high flow at 60 L and 80% FiO2. I discussed the assessment and plan of care with my nurse practitioner, Pauly Grayson. I attest to the above note as dictated by her.
[2020-10-04] MEDS: methylPREDNISolone SOD SUCCI 40 MG/ML 1 ML VIAL IV SCH (16:36)
[2020-10-04 17:12] LABS: Glucose,Whole Blood 319 mg/dL (75-99)
[2020-10-04 21:15] LABS: Glucose,Whole Blood 275 mg/dL (75-99)
[2020-10-04] MEDS: MELATONIN 5 MG TABLET PO SCH (21:26)
[2020-10-04] MEDS: INSULIN DETEMIR (LEVEMIR) 100 UNIT/ML SYR SQ SCH (21:36)
[2020-10-05] MEDS: methylPREDNISolone SOD SUCCI 40 MG/ML 1 ML VIAL IV SCH ×4 (00:47→23:32)
[2020-10-05] MEDS: ACETAMINOPHEN TAB 325 MG TAB PO PRN (01:28)
[2020-10-05 07:09] LABS: Glucose,Whole Blood 210 mg/dL (75-99)
[2020-10-05] MEDS: ASCORBIC ACID 500 MG TAB PO SCH (08:17)
[2020-10-05] MEDS: FUROSEMIDE 10 MG/ML 4 ML VIAL IV SCH (08:17)
[2020-10-05] MEDS: BENZONATATE 100 MG CAP PO SCH ×3 (08:17→21:01)
[2020-10-05] MEDS: buPROPion 75 MG TAB PO SCH (08:17)
[2020-10-05] MEDS: ZINC SULFATE 220 MG CAP PO SCH (08:17)
[2020-10-05] MEDS: INSULIN ASPART (NovoLOG) 100 UNIT/ML VIAL SQ SCH ×7 (08:18→21:02)
[2020-10-05] MEDS: CHOLECALCIFEROL 400 UNIT TAB PO SCH (08:18)
[2020-10-05] MEDS: amLODIPine 5 MG TAB PO SCH (08:18)
[2020-10-05] MEDS: ATORVASTATIN 80 MG TAB PO SCH (08:18)
[2020-10-05] MEDS: FAMOTIDINE 20 MG TAB PO SCH (08:18)
[2020-10-05] MEDS: ENOXAPARIN 60 MG/0.6 ML SYRINGE SQ SCH ×2 (08:19→21:01)
--- NOTE | 2020-10-05 08:23 | XR ---
EXAMINATION TYPE: XR chest 1V DATE OF EXAM: 10/05/2020 COMPARISON: Prior chest x-ray 10/03/2020, CT chest 09/15/2020 HISTORY: Covid pneumonia TECHNIQUE: Single frontal view of the chest is obtained. FINDINGS: Patchy bilateral airspace disease persists. Heart is likely stable. No evident pneumothora x or pleural effusion. Postop change noted to the left scapula, glenoid region. Mediastinal widening is unchanged, shotty nodes identified, prevascular nodes on prior chest CT. IMPRESSION: Findings are similar to prior exam. Correlate for pneumonia.
[2020-10-05] MEDS: ALBUTEROL HFA INHALER INHALATION SCH ×4 (09:08→20:20)
[2020-10-05] MEDS: SYMBICORT 160-4.5 MCG INHALER INHALATION SCH ×2 (09:08→20:20)
[2020-10-05] MEDS: ALPRAZolam 0.25 MG TAB PO PRN ×2 (10:34→19:43)
[2020-10-05 11:01] LABS: African American GFR (CKD) 128.4 (60.0-200.0); BUN/Creat Ratio 66.67 Ratio (12.00-20.00); Calcium 8.5 mg/dL (8.7-10.3); Non-African American GFR(CKD) 110.8 (60.0-200.0); Potassium 4.8 mmol/L (3.5-5.5)
[2020-10-05 11:35] LABS: Glucose,Whole Blood 270 mg/dL (75-99)
--- NOTE | 2020-10-05 13:31 | P.PN ---
Subjective Progress Note Date: 10/05/20 Principal diagnosis: Acute covid 19 pneumonia Patient was seen and can today 10/01/2020 in follow-up on the regular medical floor. He is awake and alert in no acute distress. Up ambulating in his room. No worsening shortness of breath, cough or congestion. He is still requiring are both alive flow nasal cannula at 60 L and 80% FiO2 to maintain O2 saturation low 90s. He has completed a course of Remdesivir, received convalescent plasma, remains on Lovenox and IV Solu-Medrol. On IV diuretics. Chest x-ray shows stable diffuse bilateral airspace disease. The patient is seen today 10/02/2020 in follow-up on the regular medical floor. He is currently sitting up in a chair at the bedside. Awake and alert in no acute distress. He remains on AirVo high flow oxygen at 60 L and 80% FiO2 to maintain O2 saturation in the low 90s. States he is feeling better today. A bit frustrated of the duration of his illness. This is day number 17. He remains on bronchodilators, IV Solu-Medrol, empiric antibiotics, IV diuretics, vitamin supplements. Anticoagulated with Lovenox. The patient is seen today 10/03/2020 in follow-up on the regular medical floor. He is awake and alert in no acute distress. Up in a chair at the bedside. Continued on airflow high flow oxygen at 60 L and 80% FiO2 with O2 saturation 92%. Lungs continue to have crackles in the bilateral posterior bases. He has completed his course of Remdesivir. He is receiving a second unit of convales cent plasma. He remains on Lovenox, IV Solu-Medrol, IV diuretics, Symbicort, albuterol. Blood and sputum cultures reveal no growth. White count 19.6. Hemoglobin 15.6. Lymphocytes 0.3. Chest x-ray shows some slight improvement in the bilateral peripheral CoVID pneumonia. The patient is seen today 10/04/2020 in follow-up on the regular medical floor. He is currently sitting up in a chair at the bedside. Awake and alert in no acute distress. Breathing a bit easier today compared to yesterday. No worsening shortness of breath, cough or congestion. Remains on airflow at 60 L and 80% FiO2. Current saturation 92%. He is afebrile. He remains on Lovenox, IV Solu-Medrol, IV diuretics, Symbicort, albuterol. He has completed a course of Remdesivir. He has received 2 units of convalescent plasma. Patient was reevaluated today on 10/05/20, remains quite ill, remains on significant amount of FiO2, however has been titrated down today to 70%, he is on 60 L high flow via airvo. Clinically the patient feels a bit better, breathing easier, but his chest x-ray continues to show diffuse bilateral interstitial infiltrates. Patient is still on Lovenox, IV Solu-Medrol, Symbicort, albuterol, and he completed his treatment including 2 units of convalescent plasma, and he finished a course of remdesivir. Elect lites are normal today, renal profile is normal. His markers, were not done today. Objective - Vital Signs Vital signs: Vital Signs Temp 97.5 F L 10/05/20 10:05 Pulse 81 10/05/20 10:05 Resp 20 10/05/20 10:05 BP 185/95 10/05/20 10:05 Pulse Ox 92 L 10/05/20 12:14 Intake & Output 10/04/20 10/05/20 10/05/20 18:59 06:59 18:59 Intake Total 600 700 Output Total 0 Balance 600 700 Intake: Oral 600 700 Output: Stool 0 Other: Voiding Method Urinal Urinal Urinal # Voids 4 1 # Bowel Movements 1 - Exam GENERAL EXAM: Alert, obese, 59-year-old gentleman, remains on AirVo high flow oxygen at 60 L and 70% FiO2, comfortable in no apparent distress. HEAD: Normocephalic. Atraumatic. EENT, PERRLA, EOMI, nonicteric, dry mucous membranes, no neck masses, no JVD, no stridor. CHEST: No chest wall deformity. LUNGS: Symmetrical expansion fine crackles at the bases. CVS: S1 and S2 normal with no audible murmur, regular rhythm. ABDOMEN: No hepatosplenomegaly, normal bowel sounds, no guarding or rigidity. SPINE: No scoliosis or deformity SKIN: No rashes CENTRAL NERVOUS SYSTEM: Alert and oriented 3 focal neurologic deficits. Psychiatric: Normal mood affect and normal mental status examination. EXTREMITIES: There is trace peripheral edema. No clubbing, no cyanosis. Peripheral pulses are intact. - Labs CBC & Chem 7: 10/03/20 06:53 10/05/20 06:28 Labs: Abnormal Lab Results - Last 24 Hours (Table) 10/04/20 10/04/20 10/05/20 Range/Units 17:11 21:14 06:28 BUN 40.0 H (9.0-27.0) mg/dL BUN/Creatinine Ratio 66.67 H (12.00-20.00) Ratio Glucose 200 H (70-110) mg/dL POC Glucose (mg/dL) 319 H 275 H (75-99) mg/dL Calcium 8.5 L (8.7-10.3) mg/dL 10/05/20 10/05/20 Range/Units 06:54 11:32 BUN (9.0-27.0) mg/dL BUN/Creatinine Ratio (12.00-20.00) Ratio Glucose (70-110) mg/dL POC Glucose (mg/dL) 210 H 270 H (75-99) mg/dL Calcium (8.7-10.3) mg/dL Assessment and Plan Assessment: Impression: Acute hypoxic respiratory failure secondary to Covid 19 pneumonitis. History of asthma presently inactive. Remains on bronchodilators. Morbid obesity. History of prostate cancer and previous prostatectomy. History of GERD presently inactive. History of asbestos exposure, no asbestosis and no mesothelioma. Recommendation: Continue present supportive care measures. Continue steroids./Solu-Medrol. Continue Lovenox. Continue with the Covid 19 cocktail. Patient finished his treatment with convalescent plasma and remdesivir Titrate FiO2 down to maintain O2 saturation above 90%. Not ready for any discharge planning. We'll continue to follow. Time with Patient: Less than 30
--- NOTE | 2020-10-05 14:40 | P.PN ---
Subjective Progress Note Date: 10/05/20 This is a pleasant 59 years old male with multiple medical problems as below including hyperlipidemia, GERD, asthma, history of prostate cancer, PTSD and history of asthma asbestos exposure. He follows at the [facility]. He presents because of dyspnea and generalized weakness and muscle pain. No c oughing or chest pain. Patient had persistent dyspnea despite using his inhalers No abdominal pain or fever, no diarrhea or change in bowel habits. No dysuria. No headache or weakness Vitals are unremarkable and patient is afebrile. He is currently saturating 92% on room air Admission labs showing leukocytosis of 15 K, d-dimer was elevated at 0.97, BMP and liver enzymes are unremarkable. Covid test is positive EKG showing sinus tachycardia at [address]-T changes CTA of the chest, [place] pulmonary interstitial pneumonia remained no evidence of pulmonary embolism Was given 1 dose of Solu-Medrol and 1 dose of Zithromax and ceftriaxone 09/17/2020 Patient in mild respiratory distress with significant coughing asking for something to help him, Robitussin ac is been added. He is on 2.5-3 L/m oxygen via nasal cannula Continue with dexamethasone and Lovenox and remdesivir Follow-up chest x-ray and inflammatory markers tomorrow 09/18/2020 Patient is breathing easily, patient is still coughing and not completely resolved. No chest pain. Saturating in the 90s with oxygen 3-5 L/m. Pulmonary team on the case and patient is found closely by Dr. Ocampo, Who ordered inflammatory markers and chest x-ray: Findings consistent with patient's history of pneumonia, progression compared to prior exam .Continue with treatment as per recommendation by pulmonary team, is currently on dexamethasone, Lovenox and remdesivir, also on vitamin C and zinc. Antibiotics were stopped by pulmonary team 09/22/2020 Patient was admitted with Covid pneumonia, he is a still on 50 L oxygen via high flow nasal cannula, patient reports some improvement compared to yesterday, he is not in significant respiratory distress, coughing is better controlled. He had 2 loose bowel movement today which is suspicious for Covid gastroenteritis but no abdominal pain or vomiting His d-dimer is slightly elevated at 1.28. Patient currently on vitamin C and zinc Solu-Medrol 60 mg and Lovenox 60 mg twice daily .patient also was placed on insulin 10 units at bedtime for better glucose control (Not home medication ) 09/23/2020 Patient is awake and alert. Sitting on a chair with a breathing machine next to him. Patient with similar respiratory distress as of yesterday. With some bothering cough. A still have diarrhea about twice per day. His oxygen requirements fluctuating between 50-60 L via high flow nasal cannula. Chest x-ray showed stable diffuse bilateral infiltrates. We will check labs and inflammatory markers tomorrow Patient to continue with same treatment O vitamin C, zinc, centimeters 60 mg and Lovenox 60 mg twice daily. 09/24/2020 Patient remains in respiratory distress his breathing feels harder today with Ceasar course coughing. Also he is having 4 bouts of diarrhea through the day. He is a still on 60 L oxygen via high flow nasal cannula Leukocytosis 19 K. BMP stable. Lactate dehydrogenase slightly elevated at 340 as well as C-reactive protein at 1.0. Normal procalcitonin at 0.08 Pulmonary service on the case 09/25/2020 Patient breathing is easier today, and saturating 90% on 50 L via high flow nasal cannula. His still have diarrhea about 4 times per day Sugar is controlled Continue with same treatment as above, vitamin C, zinc, centimeters 60 mg and Lovenox 60 mg twice daily. 09/26/2020 Patient clinically remains the same, one day he had some improvement in oxygen and subsequently later that day and goes up to 60 L, is still suffering from respiratory difficulty and breathing difficulty. His diarrhea is slightly better today. Patient continue on the same treatment with IV Lasix twice daily, Solu-Medrol 60 mg, Lovenox 60 mg twice daily, vitamin C and zinc. Check inflammatory markers and the morning 09/27/2020 Patient today feels breathing easier, his bowel movement is semisolid, he had 2 bowel movements today which were semisolid. His LDH is slightly worse, C-reactive protein was somewhat checked was normal at 0.4 He has been on Solu-Medrol Medrol 60 mg, also Lasix 40 mg twice daily and cefepime twice daily were added to the regimen, besides his other Covid pneumonia treatment including vitamin C, zinc and Lovenox. History of her on the high side because he is on his steroids and Levemir was increased from 10 to 18 units at bedtime check chest x-ray, inflammatory markers, pro-calcitonin and labs tomorrow 09/28/2020 Patient states he is not having a good day and his oxygen status has worsened. Patient currently on Airvo with an O2 flow rate of 60 and an FiO2 of 90%. D- dimer today trending down at 0.89. White blood count elevated at 28.5, sodium is 139, potassium is 4.6, current creatinine is 0.9. Blood sugar slightly elevated and will continue sliding scale and long-acting 18 units will be added. Patient is also maintained on IV Lasix and will continue at this time along with IV antibiotics in the form of cefepime, Lovenox, vitamin C and E, and zinc supplements, and IV steroids. Discussed with the patient about using his incentive spirometer at least 10 times every hour while awake and increasing activity as tolerated. Patient has been lying in bed all day today. 09/29/2020 Patient is seen and evaluated and follow-up currently sitting up in the chair still remains on Airvo with oxygen saturation 89-90%. No real improvement from yesterday although feels somewhat less fatigued. Blood sugars continue to be slightly elevated and will continue with current regimen. Patient's diet continues to be poor although he states has improved somewhat. Continue to reeducate the patient on incentive spirometer use and increasing activity as tolerated. Patient continues to be severely dyspneic with exertion. 09/30/2020 Patient is seen today and remains on Airvo with O2 flow rate of 60 and an FiO2 of 80. Patient requesting to attempt to wean FiO2 although patient continues to be extremely dyspneic, tachypneic, and anxious. Will repeat a.m. chest x-ray as patient is not really showing much improvement over the last few days. He is currently maintained on IV cefepime and will continue at this time. Patient's blood sugars have been elevated and adjustments have been made that long acting insulin and will continue with sliding scale as well. White blood count slightly improved at 22.7 today, current sodium is 137, potassium is 5.0, creatinine is 0.7. Patient is afebrile. Patient is tolerating diet although not much of an appetite he states. Patient is urinating and having bowel movements with no difficulties. 10/01/2020 Patient is seen in follow-up today continues to be on the airvo with a flow rate of 60 and FiO2 of 80 and oxygen saturation is 92%. Patient states his breathing feels improved today. Patient is more alert and active today. Chest x-ray today shows stable diffuse bilateral airspace disease. She continues on IV steroids along with IV Lasix, zinc, vitamin C and D and Lovenox. Pulmonary following. Blood sugars continue to be elevated and will adjust long-acting and continue with sliding scale. White blood count continues to trend down and is 17.8. Sodium slightly low at 132, potassium is 5.2, and current creatinine is 0.83. 10/02/2020 Patient is seen today continues to be on Airvo and discussed with respiratory about weaning as tolerated. Current O2 flow rate is 60 with an FiO2 of 80 and patient is 90%. Patient is becoming quite agitated about continuing to be at the hospital. Discussed with the patient about being able to maintain oxygenation off of the high flow prior to discharge. Blood sugars continue to be slightly elevated and will make further adjustments on the long-acting at 25 units daily and will continue sliding scale. Will discontinue IV antibiotics as patient has been on for more than one week. White blood count trending down and is currently 17.8 and will repeat a.m. labs. Continue to encourage to increase activity as tolerated and continue with incentive spirometer use. 10/03/2020 Patient remains on 60 liters of oxygen. 10/04/2020 Patient is presently on 4 L of oxygen patient is comparing of pain in the right knee patient does have severe osteoarthritis patient will be started on Toradol as needed patient is already on Pepcid which will be continued will cut down the steroids. 10/05/2020 Patient is seen and evaluated and follow-up continues to be on Airvo although a slightly titrated down to 60/70 high flow and is 92%. Discussed with respiratory about weaning and decreasing the settings although patient does not handle very well. Patient's blood sugars continue to be elevated and long- acting has been increased to 30 units and pre-meal along with sliding scale as continued. Will continue to monitor. Chest x-ray today shows findings similar to previous exam. Constitutional: Denied any fatigue denied any fever. Cardio vascular: denied any chest pain, palpitations Gastrointestinal denied any nausea vomiting Pulmonary: Continued shortness of breath although feels slightly improved Neurologic denied any new focal deficits All inpatient medications were reviewed and appropriate changes in these medications as dictated in the interval history and assessment and plan. Objective - Vital Signs Vital signs: Vital Signs Temp 97.5 F L 10/05/20 10:05 Pulse 81 10/05/20 10:05 Resp 20 10/05/20 10:05 BP 185/95 10/05/20 10:05 Pulse Ox 92 L 10/05/20 12:14 Intake & Output 10/04/20 10/05/20 10/05/20 18:59 06:59 18:59 Intake Total 600 700 Output Total 0 Balance 600 700 Intake: Oral 600 700 Output: Stool 0 Other: Voiding Method Urinal Urinal Urinal # Voids 4 1 # Bowel Movements 1 - Exam GENERAL: The patient is alert and oriented x3, not in any acute distress. Well developed, well nourished, obese HEENT: Pupils are round and equally reacting to light. EOMI. No scleral icterus. No conjunctival pallor. Normocephalic, atraumatic. No pharyngeal erythema. No thyromegaly. CARDIOVASCULAR: S1 and S2 present. No murmurs, rubs, or gallops. PULMONARY: Diminished breath sounds bilaterally otherwise clear to auscultation ABDOMEN: Soft, nontender, nondistended, normoactive bowel sounds. No palpable organomegaly. MUSCULOSKELETAL: No joint swelling or deformity. EXTREMITIES: No cyanosis, clubbing, or pedal edema. NEUROLOGICAL: Gross neurological examination did not reveal any focal deficits. SKIN: No rashes. no petechiae. - Labs CBC & Chem 7: 10/03/20 06:53 10/05/20 06:28 Labs: Abnormal Lab Results - Last 24 Hours (Table) 10/04/20 10/04/20 10/05/20 Range/Units 17:11 21:14 06:28 BUN 40.0 H (9.0-27.0) mg/dL BUN/Creatinine Ratio 66.67 H (12.00-20.00) Ratio Glucose 200 H (70-110) mg/dL POC Glucose (mg/dL) 319 H 275 H (75-99) mg/dL Calcium 8.5 L (8.7-10.3) mg/dL 10/05/20 10/05/20 Range/Units 06:54 11:32 BUN (9.0-27.0) mg/dL BUN/Creatinine Ratio (12.00-20.00) Ratio Glucose (70-110) mg/dL POC Glucose (mg/dL) 210 H 270 H (75-99) mg/dL Calcium (8.7-10.3) mg/dL Assessment and Plan Assessment: Covid 19 pneumoniae Covid gastroenteritis acute hypoxic respiratory failure secondary tocovid 19 Hyperlipidemia GERD History of asthma,without any acute exacerbation History of prostate cancer PTSD History of asbestos exposure DVT prophylaxis: Subcutaneous Lovenox GI Prophylaxis: Ppi Plan: Continue to attempt to wean FiO2 as tolerated. Continue to monitor blood sugars and titrate medications accordingly. IV steroids decreased. Pulmonary following. Encourage the patient to increase activity as tolerated and continue with incentive spirometer. Further recommendations to follow based on the cli nical course.
[2020-10-05 17:08] LABS: Glucose,Whole Blood 222 mg/dL (75-99)
[2020-10-05 20:09] LABS: Glucose,Whole Blood 266 mg/dL (75-99)
[2020-10-05] MEDS: MELATONIN 5 MG TABLET PO SCH (21:01)
[2020-10-05] MEDS: INSULIN DETEMIR (LEVEMIR) 100 UNIT/ML SYR SQ SCH (21:02)
[2020-10-05] MEDS: KETOROLAC 15 MG/ML 1 ML VIAL IVP PRN (23:42)
[2020-10-06 07:32] LABS: Glucose,Whole Blood 212 mg/dL (75-99)
[2020-10-06] MEDS: ENOXAPARIN 60 MG/0.6 ML SYRINGE SQ SCH ×2 (07:58→20:10)
[2020-10-06] MEDS: INSULIN ASPART (NovoLOG) 100 UNIT/ML VIAL SQ SCH ×7 (07:59→20:11)
[2020-10-06] MEDS: methylPREDNISolone SOD SUCCI 40 MG/ML 1 ML VIAL IV SCH ×3 (07:59→23:10)
[2020-10-06] MEDS: FUROSEMIDE 10 MG/ML 4 ML VIAL IV SCH (08:00)
[2020-10-06] MEDS: amLODIPine 5 MG TAB PO SCH (08:01)
[2020-10-06] MEDS: ZINC SULFATE 220 MG CAP PO SCH (08:01)
[2020-10-06] MEDS: BENZONATATE 100 MG CAP PO SCH ×3 (08:01→21:10)
[2020-10-06] MEDS: CHOLECALCIFEROL 400 UNIT TAB PO SCH (08:01)
[2020-10-06] MEDS: buPROPion 75 MG TAB PO SCH (08:01)
[2020-10-06] MEDS: ASCORBIC ACID 500 MG TAB PO SCH (08:01)
[2020-10-06] MEDS: FAMOTIDINE 20 MG TAB PO SCH (08:02)
[2020-10-06] MEDS: ATORVASTATIN 80 MG TAB PO SCH (08:02)
[2020-10-06] MEDS: SYMBICORT 160-4.5 MCG INHALER INHALATION SCH ×2 (08:38→20:49)
[2020-10-06] MEDS: ALBUTEROL HFA INHALER INHALATION SCH ×4 (08:38→20:49)
--- NOTE | 2020-10-06 12:43 | P.PN ---
Subjective Progress Note Date: 10/06/20 This is a pleasant 59 years old male with multiple medical problems as below including hyperlipidemia, GERD, asthma, history of prostate cancer, PTSD and history of asthma asbestos exposure. He follows at the [facility]. He presents because of dyspnea and generalized weakness and muscle pain. No c oughing or chest pain. Patient had persistent dyspnea despite using his inhalers No abdominal pain or fever, no diarrhea or change in bowel habits. No dysuria. No headache or weakness Vitals are unremarkable and patient is afebrile. He is currently saturating 92% on room air Admission labs showing leukocytosis of 15 K, d-dimer was elevated at 0.97, BMP and liver enzymes are unremarkable. Covid test is positive EKG showing sinus tachycardia at [address]-T changes CTA of the chest, [place] pulmonary interstitial pneumonia remained no evidence of pulmonary embolism Was given 1 dose of Solu-Medrol and 1 dose of Zithromax and ceftriaxone 09/17/2020 Patient in mild respiratory distress with significant coughing asking for something to help him, Robitussin ac is been added. He is on 2.5-3 L/m oxygen via nasal cannula Continue with dexamethasone and Lovenox and remdesivir Follow-up chest x-ray and inflammatory markers tomorrow 09/18/2020 Patient is breathing easily, patient is still coughing and not completely resolved. No chest pain. Saturating in the 90s with oxygen 3-5 L/m. Pulmonary team on the case and patient is found closely by Dr. Ocampo, Who ordered inflammatory markers and chest x-ray: Findings consistent with patient's history of pneumonia, progression compared to prior exam .Continue with treatment as per recommendation by pulmonary team, is currently on dexamethasone, Lovenox and remdesivir, also on vitamin C and zinc. Antibiotics were stopped by pulmonary team 09/22/2020 Patient was admitted with Covid pneumonia, he is a still on 50 L oxygen via high flow nasal cannula, patient reports some improvement compared to yesterday, he is not in significant respiratory distress, coughing is better controlled. He had 2 loose bowel movement today which is suspicious for Covid gastroenteritis but no abdominal pain or vomiting His d-dimer is slightly elevated at 1.28. Patient currently on vitamin C and zinc Solu-Medrol 60 mg and Lovenox 60 mg twice daily .patient also was placed on insulin 10 units at bedtime for better glucose control (Not home medication ) 09/23/2020 Patient is awake and alert. Sitting on a chair with a breathing machine next to him. Patient with similar respiratory distress as of yesterday. With some bothering cough. A still have diarrhea about twice per day. His oxygen requirements fluctuating between 50-60 L via high flow nasal cannula. Chest x-ray showed stable diffuse bilateral infiltrates. We will check labs and inflammatory markers tomorrow Patient to continue with same treatment O vitamin C, zinc, centimeters 60 mg and Lovenox 60 mg twice daily. 09/24/2020 Patient remains in respiratory distress his breathing feels harder today with Ceasar course coughing. Also he is having 4 bouts of diarrhea through the day. He is a still on 60 L oxygen via high flow nasal cannula Leukocytosis 19 K. BMP stable. Lactate dehydrogenase slightly elevated at 340 as well as C-reactive protein at 1.0. Normal procalcitonin at 0.08 Pulmonary service on the case 09/25/2020 Patient breathing is easier today, and saturating 90% on 50 L via high flow nasal cannula. His still have diarrhea about 4 times per day Sugar is controlled Continue with same treatment as above, vitamin C, zinc, centimeters 60 mg and Lovenox 60 mg twice daily. 09/26/2020 Patient clinically remains the same, one day he had some improvement in oxygen and subsequently later that day and goes up to 60 L, is still suffering from respiratory difficulty and breathing difficulty. His diarrhea is slightly better today. Patient continue on the same treatment with IV Lasix twice daily, Solu-Medrol 60 mg, Lovenox 60 mg twice daily, vitamin C and zinc. Check inflammatory markers and the morning 09/27/2020 Patient today feels breathing easier, his bowel movement is semisolid, he had 2 bowel movements today which were semisolid. His LDH is slightly worse, C-reactive protein was somewhat checked was normal at 0.4 He has been on Solu-Medrol Medrol 60 mg, also Lasix 40 mg twice daily and cefepime twice daily were added to the regimen, besides his other Covid pneumonia treatment including vitamin C, zinc and Lovenox. History of her on the high side because he is on his steroids and Levemir was increased from 10 to 18 units at bedtime check chest x-ray, inflammatory markers, pro-calcitonin and labs tomorrow 09/28/2020 Patient states he is not having a good day and his oxygen status has worsened. Patient currently on Airvo with an O2 flow rate of 60 and an FiO2 of 90%. D- dimer today trending down at 0.89. White blood count elevated at 28.5, sodium is 139, potassium is 4.6, current creatinine is 0.9. Blood sugar slightly elevated and will continue sliding scale and long-acting 18 units will be added. Patient is also maintained on IV Lasix and will continue at this time along with IV antibiotics in the form of cefepime, Lovenox, vitamin C and E, and zinc supplements, and IV steroids. Discussed with the patient about using his incentive spirometer at least 10 times every hour while awake and increasing activity as tolerated. Patient has been lying in bed all day today. 09/29/2020 Patient is seen and evaluated and follow-up currently sitting up in the chair still remains on Airvo with oxygen saturation 89-90%. No real improvement from yesterday although feels somewhat less fatigued. Blood sugars continue to be slightly elevated and will continue with current regimen. Patient's diet continues to be poor although he states has improved somewhat. Continue to reeducate the patient on incentive spirometer use and increasing activity as tolerated. Patient continues to be severely dyspneic with exertion. 09/30/2020 Patient is seen today and remains on Airvo with O2 flow rate of 60 and an FiO2 of 80. Patient requesting to attempt to wean FiO2 although patient continues to be extremely dyspneic, tachypneic, and anxious. Will repeat a.m. chest x-ray as patient is not really showing much improvement over the last few days. He is currently maintained on IV cefepime and will continue at this time. Patient's blood sugars have been elevated and adjustments have been made that long acting insulin and will continue with sliding scale as well. White blood count slightly improved at 22.7 today, current sodium is 137, potassium is 5.0, creatinine is 0.7. Patient is afebrile. Patient is tolerating diet although not much of an appetite he states. Patient is urinating and having bowel movements with no difficulties. 10/01/2020 Patient is seen in follow-up today continues to be on the airvo with a flow rate of 60 and FiO2 of 80 and oxygen saturation is 92%. Patient states his breathing feels improved today. Patient is more alert and active today. Chest x-ray today shows stable diffuse bilateral airspace disease. She continues on IV steroids along with IV Lasix, zinc, vitamin C and D and Lovenox. Pulmonary following. Blood sugars continue to be elevated and will adjust long-acting and continue with sliding scale. White blood count continues to trend down and is 17.8. Sodium slightly low at 132, potassium is 5.2, and current creatinine is 0.83. 10/02/2020 Patient is seen today continues to be on Airvo and discussed with respiratory about weaning as tolerated. Current O2 flow rate is 60 with an FiO2 of 80 and patient is 90%. Patient is becoming quite agitated about continuing to be at the hospital. Discussed with the patient about being able to maintain oxygenation off of the high flow prior to discharge. Blood sugars continue to be slightly elevated and will make further adjustments on the long-acting at 25 units daily and will continue sliding scale. Will discontinue IV antibiotics as patient has been on for more than one week. White blood count trending down and is currently 17.8 and will repeat a.m. labs. Continue to encourage to increase activity as tolerated and continue with incentive spirometer use. 10/03/2020 Patient remains on 60 liters of oxygen. 10/04/2020 Patient is presently on 4 L of oxygen patient is comparing of pain in the right knee patient does have severe osteoarthritis patient will be started on Toradol as needed patient is already on Pepcid which will be continued will cut down the steroids. 10/05/2020 Patient is seen and evaluated and follow-up continues to be on Airvo although a slightly titrated down to 60/70 high flow and is 92%. Discussed with respiratory about weaning and decreasing the settings although patient does not handle very well. Patient's blood sugars continue to be elevated and long- acting has been increased to 30 units and pre-meal along with sliding scale as continued. Will continue to monitor. Chest x-ray today shows findings similar to previous exam. 10/06/2020 Patient is seen in follow-up remains on Airvo and states his breathing feels improved although continues to be severely dyspneic with exertion even while talking. Patient's blood sugars seem to be slightly more controlled and maintaining in the 200s and will continue sliding scale along with pre-meal and long-acting. Patient was having some leg pain although no reports of leg pain today. Patient was given a dose of Toradol and will repeat a.m. labs. Patient is maintained on IV steroids which have been titrated down and will continue with Lovenox, zinc, vitamin C and D supplements. Constitutional: Denied any fatigue denied any fever. Cardio vascular: denied any chest pain, palpitations Gastrointestinal denied any nausea vomiting Pulmonary: Continued shortness of breath although feels slightly improved Neurologic denied any new focal deficits All inpatient medications were reviewed and appropriate changes in these medications as dictated in the interval history and assessment and plan. Objective - Vital Signs Vital signs: Vital Signs Temp 98.1 F 10/06/20 05:00 Pulse 66 10/06/20 05:00 Resp 28 H 10/06/20 05:00 BP 141/67 10/06/20 05:00 Pulse Ox 96 10/06/20 05:00 Intake & Output 10/05/20 10/06/20 10/06/20 18:59 06:59 18:59 Intake Total 600 Output Total 900 Balance -900 600 Weight 158.304 kg Intake: Oral 600 Output: Urine 900 Other: Voiding Method Urinal Urinal # Voids 3 # Bowel Movements 1 - Exam GENERAL: The patient is alert and oriented x3, not in any acute distress. Well developed, well nourished, obese HEENT: Pupils are round and equally reacting to light. EOMI. No scleral icterus. No conjunctival pallor. Normocephalic, atraumatic. No pharyngeal erythema. No thyromegaly. CARDIOVASCULAR: S1 and S2 present. No murmurs, rubs, or gallops. PULMONARY: Diminished breath sounds bilaterally otherwise clear to auscultation ABDOMEN: Soft, nontender, nondistended, normoactive bowel sounds. No palpable organomegaly. MUSCULOSKELETAL: No joint swelling or deformity. EXTREMITIES: No cyanosis, clubbing, or pedal edema. NEUROLOGICAL: Gross neurological examination did not reveal any focal deficits. SKIN: No rashes. no petechiae. - Labs CBC & Chem 7: 10/03/20 06:53 10/05/20 06:28 Labs: Abnormal Lab Results - Last 24 Hours (Table) 10/05/20 10/05/20 10/05/20 Range/Units 06:28 11:32 16:50 BUN 40.0 H (9.0-27.0) mg/dL BUN/Creatinine Ratio 66.67 H (12.00-20.00) Ratio Glucose 200 H (70-110) mg/dL POC Glucose (mg/dL) 270 H 222 H (75-99) mg/dL Calcium 8.5 L (8.7-10.3) mg/dL 10/05/20 10/06/20 Range/Units 19:53 07:27 BUN (9.0-27.0) mg/dL BUN/Creatinine Ratio (12.00-20.00) Ratio Glucose (70-110) mg/dL POC Glucose (mg/dL) 266 H 212 H (75-99) mg/dL Calcium (8.7-10.3) mg/dL Assessment and Plan Assessment: Covid 19 pneumonia Covid gastroenteritis acute hypoxic respiratory failure secondary to covid 19 Hyperlipidemia GERD History of asthma, without any acute exacerbation History of prostate cancer PTSD History of asbestos exposure DVT prophylaxis: Subcutaneous Lovenox GI Prophylaxis: Ppi Plan: Continue to attempt to wean FiO2 as tolerated. Continue to monitor blood sugars and titrate medications accordingly. IV steroids decreased. Pulmonary following. Encourage the patient to increase activity as tolerated and continue with incentive spirometer. Will repeat a.m. labs. Further recommendations to follow based on the clinical course.
[2020-10-06 12:46] LABS: Glucose,Whole Blood 245 mg/dL (75-99)
--- NOTE | 2020-10-06 13:33 | XR ---
EXAMINATION TYPE: XR knee limited LT DATE OF EXAM: 10/06/2020 COMPARISON: NONE HISTORY: Pain TECHNIQUE: 2 views submitted FINDINGS: Moderate to severe narrowing of the medial compartment of the joint and moderate changes of the patellofemoral joint with tiny hypertrophic spurs. No erosive change. Mild diffuse osteopenia. S table mild lucency within the cortex of the proximal diaphysis of the femur. 2 small to characterize. IMPRESSION: 1. Moderate to severe osteoarthritis.
--- NOTE | 2020-10-06 13:38 | P.PN ---
Subjective Progress Note Date: 10/06/20 Principal diagnosis: Acute covid 19 pneumonia Patient was seen and can today 10/01/2020 in follow-up on the regular medical floor. He is awake and alert in no acute distress. Up ambulating in his room. No worsening shortness of breath, cough or congestion. He is still requiring are both alive flow nasal cannula at 60 L and 80% FiO2 to maintain O2 saturation low 90s. He has completed a course of Remdesivir, received convalescent plasma, remains on Lovenox and IV Solu-Medrol. On IV diuretics. Chest x-ray shows stable diffuse bilateral airspace disease. The patient is seen today 10/02/2020 in follow-up on the regular medical floor. He is currently sitting up in a chair at the bedside. Awake and alert in no acute distress. He remains on AirVo high flow oxygen at 60 L and 80% FiO2 to maintain O2 saturation in the low 90s. States he is feeling better today. A bit frustrated of the duration of his illness. This is day number 17. He remains on bronchodilators, IV Solu-Medrol, empiric antibiotics, IV diuretics, vitamin supplements. Anticoagulated with Lovenox. The patient is seen today 10/03/2020 in follow-up on the regular medical floor. He is awake and alert in no acute distress. Up in a chair at the bedside. Continued on airflow high flow oxygen at 60 L and 80% FiO2 with O2 saturation 92%. Lungs continue to have crackles in the bilateral posterior bases. He has completed his course of Remdesivir. He is receiving a second unit of convales cent plasma. He remains on Lovenox, IV Solu-Medrol, IV diuretics, Symbicort, albuterol. Blood and sputum cultures reveal no growth. White count 19.6. Hemoglobin 15.6. Lymphocytes 0.3. Chest x-ray shows some slight improvement in the bilateral peripheral CoVID pneumonia. The patient is seen today 10/04/2020 in follow-up on the regular medical floor. He is currently sitting up in a chair at the bedside. Awake and alert in no acute distress. Breathing a bit easier today compared to yesterday. No worsening shortness of breath, cough or congestion. Remains on airflow at 60 L and 80% FiO2. Current saturation 92%. He is afebrile. He remains on Lovenox, IV Solu-Medrol, IV diuretics, Symbicort, albuterol. He has completed a course of Remdesivir. He has received 2 units of convalescent plasma. Patient was reevaluated today on 10/05/20, remains quite ill, remains on significant amount of FiO2, however has been titrated down today to 70%, he is on 60 L high flow via airvo. Clinically the patient feels a bit better, breathing easier, but his chest x-ray continues to show diffuse bilateral interstitial infiltrates. Patient is still on Lovenox, IV Solu-Medrol, Symbicort, albuterol, and he completed his treatment including 2 units of convalescent plasma, and he finished a course of remdesivir. Elect lites are normal today, renal profile is normal. His markers, were not done today. Reevaluated today on 10/06/20, patient is feeling clinically much better, however he is still requiring relatively high FiO2, he is now on 65% FiO2 and 60 L flow. Hardly any cough, he does have shortness of breath on exertion, no fever no chills, no hemoptysis, no chest pain. Patient remains on the Covid 19 cocktails, and on bronchodilators. Patient finished full treatment including remdesivir and convalescent plasma Objective - Vital Signs Vital signs: Vital Signs Temp 98.0 F 10/06/20 11:00 Pulse 85 10/06/20 11:00 Resp 20 10/06/20 11:00 BP 153/81 10/06/20 11:00 Pulse Ox 90 L 10/06/20 11:00 Intake & Output 10/05/20 10/06/20 10/06/20 18:59 06:59 18:59 Intake Total 600 Output Total 900 250 Balance -900 600 -250 Weight 158.304 kg Intake: Oral 600 Output: Urine 900 250 Other: Voiding Method Urinal Urinal # Voids 3 1 # Bowel Movements 1 1 - Exam GENERAL EXAM: Alert, obese, 59-year-old gentleman, remains on AirVo high flow oxygen at 60 L and 60% FiO2, asymptomatic. HEAD: Normocephalic. Atraumatic. EENT, PERRLA, EOMI, nonicteric, dry mucous membranes, no neck masses, no JVD, no stridor. CHEST: No chest wall deformity. LUNGS: Symmetrical expansion, persistent crackles at the bases mostly. CVS: S1 and S2 normal with no audible murmur, regular rhythm. ABDOMEN: No hepatosplenomegaly, normal bowel sounds, no guarding or rigidity. SPINE: No scoliosis or deformity SKIN: No rashes CENTRAL NERVOUS SYSTEM: Alert and oriented 3 focal neurologic deficits. Psychiatric: Normal mood affect and normal mental status examination. EXTREMITIES: There is trace peripheral edema. No clubbing, no cyanosis. Peripheral pulses are intact. - Labs CBC & Chem 7: 10/03/20 06:53 10/05/20 06:28 Labs: Abnormal Lab Results - Last 24 Hours (Table) 10/05/20 10/05/20 10/06/20 Range/Units 16:50 19:53 07:27 POC Glucose (mg/dL) 222 H 266 H 212 H (75-99) mg/dL 10/06/20 Range/Units 12:39 POC Glucose (mg/dL) 245 H (75-99) mg/dL Assessment and Plan Assessment: Impression: Acute hypoxic respiratory failure secondary to Covid 19 pneumonitis. History of asthma presently inactive. Remains on bronchodilators. Morbid obesity. History of prostate cancer and previous prostatectomy. History of GERD presently inactive. History of asbestos exposure, no asbestosis and no mesothelioma. Recommendation: Continue present supportive care measures. Continue steroids./Solu-Medrol. Continue Lovenox. Continue with the Covid 19 cocktail. Patient finished his treatment with c onvalescent plasma and remdesivir Titrate FiO2 down to maintain O2 saturation above 90%. Not ready for any discharge planning. We'll continue to follow. Time with Patient: Less than 30
[2020-10-06 16:56] LABS: Glucose,Whole Blood 244 mg/dL (75-99)
[2020-10-06] MEDS: ACETAMINOPHEN TAB 325 MG TAB PO PRN (19:33)
[2020-10-06 19:58] LABS: Glucose,Whole Blood 335 mg/dL (75-99)
[2020-10-06] MEDS: INSULIN DETEMIR (LEVEMIR) 100 UNIT/ML SYR SQ SCH (20:10)
[2020-10-06] MEDS: MELATONIN 5 MG TABLET PO SCH (21:10)
[2020-10-07] MEDS: traZODone HCL 50 MG TAB PO PRN ×2 (01:07→21:33)
[2020-10-07 07:22] LABS: Glucose,Whole Blood 148 mg/dL (75-99)
[2020-10-07] MEDS: INSULIN ASPART (NovoLOG) 100 UNIT/ML VIAL SQ SCH ×7 (07:47→21:33)
[2020-10-07] MEDS: FUROSEMIDE 10 MG/ML 4 ML VIAL IV SCH (07:48)
[2020-10-07] MEDS: methylPREDNISolone SOD SUCCI 40 MG/ML 1 ML VIAL IV SCH ×2 (07:48→17:32)
[2020-10-07] MEDS: ZINC SULFATE 220 MG CAP PO SCH (07:48)
[2020-10-07] MEDS: ATORVASTATIN 80 MG TAB PO SCH (07:49)
[2020-10-07] MEDS: BENZONATATE 100 MG CAP PO SCH ×3 (07:49→21:33)
[2020-10-07] MEDS: ENOXAPARIN 60 MG/0.6 ML SYRINGE SQ SCH ×2 (07:49→21:34)
[2020-10-07] MEDS: FAMOTIDINE 20 MG TAB PO SCH (07:49)
[2020-10-07] MEDS: CHOLECALCIFEROL 400 UNIT TAB PO SCH (07:49)
[2020-10-07] MEDS: amLODIPine 5 MG TAB PO SCH (07:49)
[2020-10-07] MEDS: ASCORBIC ACID 500 MG TAB PO SCH (07:49)
[2020-10-07] MEDS: buPROPion 75 MG TAB PO SCH (07:49)
[2020-10-07] MEDS: ALBUTEROL HFA INHALER INHALATION SCH ×4 (08:44→20:39)
[2020-10-07] MEDS: SYMBICORT 160-4.5 MCG INHALER INHALATION SCH ×2 (08:44→20:39)
[2020-10-07 10:13] LABS: African American GFR (CKD) 120.6 (60.0-200.0); Anion Gap 9.4 mmol/L (4.00-12.00); BUN/Creat Ratio 44.29 Ratio (12.00-20.00); Calcium 8.1 mg/dL (8.7-10.3); Carbon Dioxide 27.6 mmol/L (21.6-31.8); Potassium 4.3 mmol/L (3.5-5.5)
[2020-10-07 11:14] LABS: Glucose,Whole Blood 258 mg/dL (75-99)
--- NOTE | 2020-10-07 13:48 | CDI ---
Documentation Clarification Form Date: 10/07/2020 01:38:06 PM From: Kendy EscotoAdamLULA dinero, CCDS Admit Date: 09/15/2020 08:11:00 PM Patient Name: Marlon Shepherd Visit Number: [id number] Discharge Date: ATTENTION: The Clinical Documentation Specialists (CDI) and [facility] Coding Staff appreciate your assistance in clarifying documentation. Please respond to the clarification below the line at the bottom and electronically sign. The CDI & [facility] Coding staff will review the response and follow-up if needed. Please note: Queries are made part of the Legal Health Record. If you have any questions, please contact the author of this message via ITS. Dr. Edgar Almonte: The patient is admitted with Bilateral COVID 19 Pneumonia with Increased inflammatory markers, Acute Hypoxic Respiratory Failure and COVID Gastroenteritis. History/Risk Factors: Obesity w/BMI 47.3, Asthma, Hyperlipidemia, GERD, Asbestos Exposure, Previous Pneumonia, Prostate Cancer, PTSD, non smoker. Clinical Indicators: Presented to the ED on 09/15 with SOB, diagnosed with COVID 19 Pneumonia and admitted for same. VS 09/15: T 99.1^, P 106^, R 20, BP 156/79, PO 94 RA - 91 on 2Lnc. 09/16 T 102^, P 110^, PO 90 3Lnc. LAB 09/15: WBC 15.0^, Neut 12.2^, Lymph 0.9*, D Dimer 0.97^, Glucose 166^, Total Bilirubin 1.6^. 09/15 COVID TEST POSITIVE RAD: 09/15 CXR: New bilateral predominantly interstitial pneumonia. 09/15 Blood Culture: Final: neg @ 144 hrs 09/17 Blood Culture: Final: neg @ 144 hrs 09/25 Sputum Culture: Final: negative Treatment 09/15: INH Ventolin, IV Solumedrol, INH Duoneb, IV Azithromycin, IV Rocephin. 09/16: IV Remdesivir, Orazinc. Received convalescent plasma on 09/20 & 10/03. In your professional opinion, please clarify if these findings signify one of the following conditions, whether the condition is POA, and cause, if known: Sepsis o with Severe Sepsis o without Severe Sepsis Other, please specify Unable to determine Present on Admission o Yes o No Link or clarify if there is associated (due to/with): o Organ failure (Last Revision: January 2018) Sepsis present on admission MTDD
--- NOTE | 2020-10-07 14:02 | P.PN ---
Subjective Progress Note Date: 10/07/20 Principal diagnosis: Acute covid 19 pneumonia Patient was seen and can today 10/01/2020 in follow-up on the regular medical floor. He is awake and alert in no acute distress. Up ambulating in his room. No worsening shortness of breath, cough or congestion. He is still requiring are both alive flow nasal cannula at 60 L and 80% FiO2 to maintain O2 saturation low 90s. He has completed a course of Remdesivir, received convalescent plasma, remains on Lovenox and IV Solu-Medrol. On IV diuretics. Chest x-ray shows stable diffuse bilateral airspace disease. The patient is seen today 10/02/2020 in follow-up on the regular medical floor. He is currently sitting up in a chair at the bedside. Awake and alert in no acute distress. He remains on AirVo high flow oxygen at 60 L and 80% FiO2 to maintain O2 saturation in the low 90s. States he is feeling better today. A bit frustrated of the duration of his illness. This is day number 17. He remains on bronchodilators, IV Solu-Medrol, empiric antibiotics, IV diuretics, vitamin supplements. Anticoagulated with Lovenox. The patient is seen today 10/03/2020 in follow-up on the regular medical floor. He is awake and alert in no acute distress. Up in a chair at the bedside. Continued on airflow high flow oxygen at 60 L and 80% FiO2 with O2 saturation 92%. Lungs continue to have crackles in the bilateral posterior bases. He has completed his course of Remdesivir. He is receiving a second unit of convales cent plasma. He remains on Lovenox, IV Solu-Medrol, IV diuretics, Symbicort, albuterol. Blood and sputum cultures reveal no growth. White count 19.6. Hemoglobin 15.6. Lymphocytes 0.3. Chest x-ray shows some slight improvement in the bilateral peripheral CoVID pneumonia. The patient is seen today 10/04/2020 in follow-up on the regular medical floor. He is currently sitting up in a chair at the bedside. Awake and alert in no acute distress. Breathing a bit easier today compared to yesterday. No worsening shortness of breath, cough or congestion. Remains on airflow at 60 L and 80% FiO2. Current saturation 92%. He is afebrile. He remains on Lovenox, IV Solu-Medrol, IV diuretics, Symbicort, albuterol. He has completed a course of Remdesivir. He has received 2 units of convalescent plasma. Patient was reevaluated today on 10/05/20, remains quite ill, remains on significant amount of FiO2, however has been titrated down today to 70%, he is on 60 L high flow via airvo. Clinically the patient feels a bit better, breathing easier, but his chest x-ray continues to show diffuse bilateral interstitial infiltrates. Patient is still on Lovenox, IV Solu-Medrol, Symbicort, albuterol, and he completed his treatment including 2 units of convalescent plasma, and he finished a course of remdesivir. Elect lites are normal today, renal profile is normal. His markers, were not done today. Reevaluated today on 10/06/20, patient is feeling clinically much better, however he is still requiring relatively high FiO2, he is now on 65% FiO2 and 60 L flow. Hardly any cough, he does have shortness of breath on exertion, no fever no chills, no hemoptysis, no chest pain. Patient remains on the Covid 19 cocktails, and on bronchodilators. Patient finished full treatment including remdesivir and convalescent plasma Reevaluated today on 10/07/20, patient continues to require significant amount of oxygen, however it has been tapered down to 50% and 60 L flow. He is on airvo, maintaining O2 saturation in the 90s. Overall the patient is feeling better, but not quite ready for discharge planning. Labs from today including metabolic profile is normal. Objective - Vital Signs Vital signs: Vital Signs Temp 98.4 F 10/07/20 11:00 Pulse 98 10/07/20 11:00 Resp 17 10/07/20 11:00 BP 170/74 10/07/20 11:00 Pulse Ox 91 L 10/07/20 11:00 Intake & Output 10/06/20 10/07/20 10/07/20 18:59 06:59 18:59 Intake Total 1200 590 Output Total 1350 1500 Balance -150 -910 Intake: Oral 1200 590 Output: Urine 1350 1500 Other: Voiding Method Urinal # Voids 4 # Bowel Movements 2 - Exam GENERAL EXAM: Alert, obese, 59-year-old gentleman, remains on AirVo high 50% and 60 L flow. HEAD: Normocephalic. Atraumatic. EENT, PERRLA, EOMI, nonicteric, dry mucous membranes, no neck masses, no JVD, no stridor. CHEST: No chest wall deformity. LUNGS: Symmetrical expansion, persistent crackles at the bases mostly. CVS: S1 and S2 normal with no audible murmur, regular rhythm. ABDOMEN: No hepatosplenomegaly, normal bowel sounds, no guarding or rigidity. SPINE: No scoliosis or deformity SKIN: No rashes CENTRAL NERVOUS SYSTEM: Alert and oriented 3 focal neurologic deficits. Psychiatric: Normal mood affect and normal mental status examination. EXTREMITIES: There is trace peripheral edema. No clubbing, no cyanosis. Peripheral pulses are intact. - Labs CBC & Chem 7: 10/03/20 06:53 10/07/20 05:46 Labs: Abnormal Lab Results - Last 24 Hours (Table) 10/06/20 10/06/20 10/07/20 Range/Units 16:52 19:56 05:46 BUN 31.0 H (9.0-27.0) mg/dL BUN/Creatinine Ratio 44.29 H (12.00-20.00) Ratio Glucose 170 H (70-110) mg/dL POC Glucose (mg/dL) 244 H 335 H (75-99) mg/dL Calcium 8.1 L (8.7-10.3) mg/dL 10/07/20 10/07/20 Range/Units 07:20 11:13 BUN (9.0-27.0) mg/dL BUN/Creatinine Ratio (12.00-20.00) Ratio Glucose (70-110) mg/dL POC Glucose (mg/dL) 148 H 258 H (75-99) mg/dL Calcium (8.7-10.3) mg/dL Assessment and Plan Assessment: Impression: Acute hypoxic respiratory failure secondary to Covid 19 pneumonitis. History of asthma presently inactive. Remains on bronchodilators. Morbid obesity. History of prostate cancer and previous prostatectomy. History of GERD presently inactive. History of asbestos exposure, no asbestosis and no mesothelioma. Recommendation: Continue tapering the oxygen. Continue present supportive care measures. Continue steroids./Solu-Medrol. Continue Lovenox. Continue with the Covid 19 cocktail. Patient finished his treatment with convalescent plasma and remdesivir Titrate FiO2 down to maintain O2 saturation above 90%. Not ready for any discharge planning. We'll continue to follow. Time with Patient: Less than 30
--- NOTE | 2020-10-07 14:48 | P.PN ---
Subjective Progress Note Date: 10/07/20 This is a pleasant 59 years old male with multiple medical problems as below including hyperlipidemia, GERD, asthma, history of prostate cancer, PTSD and history of asthma asbestos exposure. He follows at the [facility]. He presents because of dyspnea and generalized weakness and muscle pain. No c oughing or chest pain. Patient had persistent dyspnea despite using his inhalers No abdominal pain or fever, no diarrhea or change in bowel habits. No dysuria. No headache or weakness Vitals are unremarkable and patient is afebrile. He is currently saturating 92% on room air Admission labs showing leukocytosis of 15 K, d-dimer was elevated at 0.97, BMP and liver enzymes are unremarkable. Covid test is positive EKG showing sinus tachycardia at [address]-T changes CTA of the chest, [place] pulmonary interstitial pneumonia remained no evidence of pulmonary embolism Was given 1 dose of Solu-Medrol and 1 dose of Zithromax and ceftriaxone 09/17/2020 Patient in mild respiratory distress with significant coughing asking for something to help him, Robitussin ac is been added. He is on 2.5-3 L/m oxygen via nasal cannula Continue with dexamethasone and Lovenox and remdesivir Follow-up chest x-ray and inflammatory markers tomorrow 09/18/2020 Patient is breathing easily, patient is still coughing and not completely resolved. No chest pain. Saturating in the 90s with oxygen 3-5 L/m. Pulmonary team on the case and patient is found closely by Dr. Ocampo, Who ordered inflammatory markers and chest x-ray: Findings consistent with patient's history of pneumonia, progression compared to prior exam .Continue with treatment as per recommendation by pulmonary team, is currently on dexamethasone, Lovenox and remdesivir, also on vitamin C and zinc. Antibiotics were stopped by pulmonary team 09/22/2020 Patient was admitted with Covid pneumonia, he is a still on 50 L oxygen via high flow nasal cannula, patient reports some improvement compared to yesterday, he is not in significant respiratory distress, coughing is better controlled. He had 2 loose bowel movement today which is suspicious for Covid gastroenteritis but no abdominal pain or vomiting His d-dimer is slightly elevated at 1.28. Patient currently on vitamin C and zinc Solu-Medrol 60 mg and Lovenox 60 mg twice daily .patient also was placed on insulin 10 units at bedtime for better glucose control (Not home medication ) 09/23/2020 Patient is awake and alert. Sitting on a chair with a breathing machine next to him. Patient with similar respiratory distress as of yesterday. With some bothering cough. A still have diarrhea about twice per day. His oxygen requirements fluctuating between 50-60 L via high flow nasal cannula. Chest x-ray showed stable diffuse bilateral infiltrates. We will check labs and inflammatory markers tomorrow Patient to continue with same treatment O vitamin C, zinc, centimeters 60 mg and Lovenox 60 mg twice daily. 09/24/2020 Patient remains in respiratory distress his breathing feels harder today with Ceasar course coughing. Also he is having 4 bouts of diarrhea through the day. He is a still on 60 L oxygen via high flow nasal cannula Leukocytosis 19 K. BMP stable. Lactate dehydrogenase slightly elevated at 340 as well as C-reactive protein at 1.0. Normal procalcitonin at 0.08 Pulmonary service on the case 09/25/2020 Patient breathing is easier today, and saturating 90% on 50 L via high flow nasal cannula. His still have diarrhea about 4 times per day Sugar is controlled Continue with same treatment as above, vitamin C, zinc, centimeters 60 mg and Lovenox 60 mg twice daily. 09/26/2020 Patient clinically remains the same, one day he had some improvement in oxygen and subsequently later that day and goes up to 60 L, is still suffering from respiratory difficulty and breathing difficulty. His diarrhea is slightly better today. Patient continue on the same treatment with IV Lasix twice daily, Solu-Medrol 60 mg, Lovenox 60 mg twice daily, vitamin C and zinc. Check inflammatory markers and the morning 09/27/2020 Patient today feels breathing easier, his bowel movement is semisolid, he had 2 bowel movements today which were semisolid. His LDH is slightly worse, C-reactive protein was somewhat checked was normal at 0.4 He has been on Solu-Medrol Medrol 60 mg, also Lasix 40 mg twice daily and cefepime twice daily were added to the regimen, besides his other Covid pneumonia treatment including vitamin C, zinc and Lovenox. History of her on the high side because he is on his steroids and Levemir was increased from 10 to 18 units at bedtime check chest x-ray, inflammatory markers, pro-calcitonin and labs tomorrow 09/28/2020 Patient states he is not having a good day and his oxygen status has worsened. Patient currently on Airvo with an O2 flow rate of 60 and an FiO2 of 90%. D- dimer today trending down at 0.89. White blood count elevated at 28.5, sodium is 139, potassium is 4.6, current creatinine is 0.9. Blood sugar slightly elevated and will continue sliding scale and long-acting 18 units will be added. Patient is also maintained on IV Lasix and will continue at this time along with IV antibiotics in the form of cefepime, Lovenox, vitamin C and E, and zinc supplements, and IV steroids. Discussed with the patient about using his incentive spirometer at least 10 times every hour while awake and increasing activity as tolerated. Patient has been lying in bed all day today. 09/29/2020 Patient is seen and evaluated and follow-up currently sitting up in the chair still remains on Airvo with oxygen saturation 89-90%. No real improvement from yesterday although feels somewhat less fatigued. Blood sugars continue to be slightly elevated and will continue with current regimen. Patient's diet continues to be poor although he states has improved somewhat. Continue to reeducate the patient on incentive spirometer use and increasing activity as tolerated. Patient continues to be severely dyspneic with exertion. 09/30/2020 Patient is seen today and remains on Airvo with O2 flow rate of 60 and an FiO2 of 80. Patient requesting to attempt to wean FiO2 although patient continues to be extremely dyspneic, tachypneic, and anxious. Will repeat a.m. chest x-ray as patient is not really showing much improvement over the last few days. He is currently maintained on IV cefepime and will continue at this time. Patient's blood sugars have been elevated and adjustments have been made that long acting insulin and will continue with sliding scale as well. White blood count slightly improved at 22.7 today, current sodium is 137, potassium is 5.0, creatinine is 0.7. Patient is afebrile. Patient is tolerating diet although not much of an appetite he states. Patient is urinating and having bowel movements with no difficulties. 10/01/2020 Patient is seen in follow-up today continues to be on the airvo with a flow rate of 60 and FiO2 of 80 and oxygen saturation is 92%. Patient states his breathing feels improved today. Patient is more alert and active today. Chest x-ray today shows stable diffuse bilateral airspace disease. She continues on IV steroids along with IV Lasix, zinc, vitamin C and D and Lovenox. Pulmonary following. Blood sugars continue to be elevated and will adjust long-acting and continue with sliding scale. White blood count continues to trend down and is 17.8. Sodium slightly low at 132, potassium is 5.2, and current creatinine is 0.83. 10/02/2020 Patient is seen today continues to be on Airvo and discussed with respiratory about weaning as tolerated. Current O2 flow rate is 60 with an FiO2 of 80 and patient is 90%. Patient is becoming quite agitated about continuing to be at the hospital. Discussed with the patient about being able to maintain oxygenation off of the high flow prior to discharge. Blood sugars continue to be slightly elevated and will make further adjustments on the long-acting at 25 units daily and will continue sliding scale. Will discontinue IV antibiotics as patient has been on for more than one week. White blood count trending down and is currently 17.8 and will repeat a.m. labs. Continue to encourage to increase activity as tolerated and continue with incentive spirometer use. 10/03/2020 Patient remains on 60 liters of oxygen. 10/04/2020 Patient is presently on 4 L of oxygen patient is comparing of pain in the right knee patient does have severe osteoarthritis patient will be started on Toradol as needed patient is already on Pepcid which will be continued will cut down the steroids. 10/05/2020 Patient is seen and evaluated and follow-up continues to be on Airvo although a slightly titrated down to 60/70 high flow and is 92%. Discussed with respiratory about weaning and decreasing the settings although patient does not handle very well. Patient's blood sugars continue to be elevated and long- acting has been increased to 30 units and pre-meal along with sliding scale as continued. Will continue to monitor. Chest x-ray today shows findings similar to previous exam. 10/06/2020 Patient is seen in follow-up remains on Airvo and states his breathing feels improved although continues to be severely dyspneic with exertion even while talking. Patient's blood sugars seem to be slightly more controlled and maintaining in the 200s and will continue sliding scale along with pre-meal and long-acting. Patient was having some leg pain although no reports of leg pain today. Patient was given a dose of Toradol and will repeat a.m. labs. Patient is maintained on IV steroids which have been titrated down and will continue with Lovenox, zinc, vitamin C and D supplements. 10/07/2020 Patient seen today and remains on Airvo is slowly being titrated as tolerated. Settings are oxygen flow rate of 60 and FiO2 of 55 and 91-93% oxygenation. Continues to be dyspneic on exertion although appears to be improving slowly each day. Patient's blood sugars are elevated and will continue current regimen. Current creatinine is stable at 0.7. X-ray of the left knee was done yesterday patient continues to have leg pain mostly in the area surrounding the knee and reports no fractures with moderate to severe osteoarthritis noted. Constitutional: Denied any fatigue denied any fever. Cardio vascular: denied any chest pain, palpitations Gastrointestinal denied any nausea vomiting Pulmonary: Continued shortness of breath although feels slightly improved Neurologic denied any new focal deficits All inpatient medications were reviewed and appropriate changes in these medications as dictated in the interval history and assessment and plan. Objective - Vital Signs Vital signs: Vital Signs Temp 98.0 F 10/07/20 05:00 Pulse 65 10/07/20 05:00 Resp 20 10/07/20 05:00 BP 146/70 10/07/20 05:00 Pulse Ox 93 L 10/07/20 05:00 Intake & Output 10/06/20 10/07/20 10/07/20 18:59 06:59 18:59 Intake Total 1200 590 Output Total 1350 1500 Balance -150 -910 Intake: Oral 1200 590 Output: Urine 1350 1500 Other: Voiding Method Urinal # Voids 4 # Bowel Movements 2 - Exam GENERAL: The patient is alert and oriented x3, not in any acute distress. Well developed, well nourished, obese HEENT: Pupils are round and equally reacting to light. EOMI. No scleral icterus. No conjunctival pallor. Normocephalic, atraumatic. No pharyngeal erythema. No thyromegaly. CARDIOVASCULAR: S1 and S2 present. No murmurs, rubs, or gallops. PULMONARY: Diminished breath sounds bilaterally otherwise clear to auscultation ABDOMEN: Soft, nontender, nondistended, normoactive bowel sounds. No palpable organomegaly. MUSCULOSKELETAL: No joint swelling or deformity. EXTREMITIES: No cyanosis, clubbing, or pedal edema. NEUROLOGICAL: Gross neurological examination did not reveal any focal deficits. SKIN: No rashes. no petechiae. - Labs CBC & Chem 7: 10/03/20 06:53 10/07/20 05:46 Labs: Abnormal Lab Results - Last 24 Hours (Table) 10/06/20 10/06/20 10/06/20 Range/Units 12:39 16:52 19:56 BUN (9.0-27.0) mg/dL BUN/Creatinine Ratio (12.00-20.00) Ratio Glucose (70-110) mg/dL POC Glucose (mg/dL) 245 H 244 H 335 H (75-99) mg/dL Calcium (8.7-10.3) mg/dL 10/07/20 10/07/20 Range/Units 05:46 07:20 BUN 31.0 H (9.0-27.0) mg/dL BUN/Creatinine Ratio 44.29 H (12.00-20.00) Ratio Glucose 170 H (70-110) mg/dL POC Glucose (mg/dL) 148 H (75-99) mg/dL Calcium 8.1 L (8.7-10.3) mg/dL Assessment and Plan Assessment: Covid 19 pneumonia Sepsis, present on admission, secondary to above Covid gastroenteritis acute hypoxic respiratory failure secondary to covid 19 Hyperlipidemia GERD History of asthma, without any acute exacerbation History of prostate cancer PTSD History of asbestos exposure DVT prophylaxis: Subcutaneous Lovenox GI Prophylaxis: Ppi Plan: Continue to attempt to wean FiO2 as tolerated. Continue to monitor blood sugars and titrate medications accordingly. Pulmonary following. Encourage the patient to increase activity as tolerated and continue with incentive spirometer. Further recommendations to follow based on the clinical course.
[2020-10-07 17:00] LABS: Glucose,Whole Blood 254 mg/dL (75-99)
[2020-10-07 19:51] LABS: Glucose,Whole Blood 259 mg/dL (75-99)
[2020-10-07] MEDS: INSULIN DETEMIR (LEVEMIR) 100 UNIT/ML SYR SQ SCH (21:33)
[2020-10-07] MEDS: ALPRAZolam 0.25 MG TAB PO PRN (21:33)
[2020-10-07] MEDS: MELATONIN 5 MG TABLET PO SCH (21:33)
[2020-10-08] MEDS: methylPREDNISolone SOD SUCCI 40 MG/ML 1 ML VIAL IV SCH ×4 (00:07→23:19)
[2020-10-08] MEDS: KETOROLAC 15 MG/ML 1 ML VIAL IVP PRN ×2 (01:45→21:19)
[2020-10-08] MEDS: ASCORBIC ACID 500 MG TAB PO SCH (08:20)
[2020-10-08] MEDS: ATORVASTATIN 80 MG TAB PO SCH (08:20)
[2020-10-08] MEDS: FAMOTIDINE 20 MG TAB PO SCH (08:20)
[2020-10-08] MEDS: INSULIN ASPART (NovoLOG) 100 UNIT/ML VIAL SQ SCH ×7 (08:21→21:17)
[2020-10-08] MEDS: BENZONATATE 100 MG CAP PO SCH ×3 (08:21→21:17)
[2020-10-08] MEDS: amLODIPine 5 MG TAB PO SCH (08:21)
[2020-10-08] MEDS: ZINC SULFATE 220 MG CAP PO SCH (08:21)
[2020-10-08] MEDS: FUROSEMIDE 10 MG/ML 4 ML VIAL IV SCH (08:21)
[2020-10-08] MEDS: ENOXAPARIN 60 MG/0.6 ML SYRINGE SQ SCH ×2 (08:24→21:19)
[2020-10-08] MEDS: CHOLECALCIFEROL 400 UNIT TAB PO SCH (08:24)
[2020-10-08] MEDS: buPROPion 75 MG TAB PO SCH (08:24)
[2020-10-08] MEDS: ALBUTEROL HFA INHALER INHALATION SCH ×4 (08:25→20:28)
[2020-10-08] MEDS: SYMBICORT 160-4.5 MCG INHALER INHALATION SCH ×2 (08:25→20:28)
--- NOTE | 2020-10-08 12:02 | P.PN ---
Subjective Progress Note Date: 10/08/20 Principal diagnosis: COVID 19 pneumonitis Patient was seen and examined again today on 10/08/2020 on the general medical oncology floor. He remains on high flow oxygen, and FiO2 is currently down to 45%, with low at 60 L/m, overall he states he is feeling better, he sitting up in the chair, is to be in good spirits, denies any acute distress, his pulse ox is at 90%, his been afebrile, hemodynamically stable, he denies any chest discomfort, hasn't had any recent chest x-ray since 10/05/2020. Vitals have been stable, he remains on bronchodilators, he is on vitamin C, vitamin daily, he is on the once daily dose of IV Lasix and IV steroids, his last d-dimer was on 09/28/2020 and was at 0.89, today BMP was done only, electrolytes are unremarkable, B1 is 31 and creatinine 0.7. Patient is on the regular dose of IV Lasix, and he is in -2 L net fluid balance for the last 24 hours. He has completed a course of Remdesivir, his microbiology has been reviewed and his blood and sputum cultures have shown no growth. he was on cefepime which is now discontinued. He's had no fevers Objective - Vital Signs Vital signs: Vital Signs Temp 98.2 F 10/08/20 10:04 Pulse 89 10/08/20 10:04 Resp 20 10/08/20 10:04 BP 144/77 10/08/20 10:04 Pulse Ox 90 L 10/08/20 10:04 Intake & Output 10/07/20 10/08/20 10/08/20 18:59 06:59 18:59 Output Total 1500 500 Balance -1500 -500 Output: Urine 1500 500 Other: Voiding Method Urinal Urinal # Voids 1 # Bowel Movements 1 1 - Exam GENERAL EXAM: Alert, very pleasant, 59-year-old white male,on Airvo at 60 L, and FiO2 of 40% with a pulse ox of 90%, sitting up in the recliner, appears to be in no acute distress , comfortable in no apparent distress. HEAD: Normocephalic/atraumatic. EYES: Normal reaction of pupils, equal size. Conjunctiva pink, sclera white. NOSE: Clear with pink turbinates. THROAT: No erythema or exudates. NECK: No masses, no JVD, no thyroid enlargement, no adenopathy. CHEST: No chest wall deformity. Symmetrical expansion. LUNGS: Equal air entry with no crackles, wheeze, rhonchi or dullness. CVS: Regular rate and rhythm, normal S1 and S2, no gallops, no murmurs, no rubs ABDOMEN: Soft, nontender. No hepatosplenomegaly, normal bowel sounds, no gua rding or rigidity. EXTREMITIES: No clubbing, no edema, no cyanosis, 2+ pulses and upper and lower extremities. MUSCULOSKELETAL: Muscle strength and tone normal. SPINE: No scoliosis or deformity SKIN: No rashes CENTRAL NERVOUS SYSTEM: Alert and oriented -3. No focal deficits, tone is normal in all 4 extremities. PSYCHIATRIC: Alert and oriented -3. Appropriate affect. Intact judgment and insight. - Labs CBC & Chem 7: 10/03/20 06:53 10/07/20 05:46 Labs: Abnormal Lab Results - Last 24 Hours (Table) 10/07/20 10/07/20 Range/Units 16:59 19:49 POC Glucose (mg/dL) 254 H 259 H (75-99) mg/dL Assessment and Plan Plan: Assessment: #1. Acute hypoxic respiratory failure secondary to COVID 19 pneumonitis, severe and persistent, patient remains on Airvo at 60 L, and FiO2 is currently down to 45%, status post Remdesivir and 2 units of convalescent plasma, and patient remains on Solu-Medrol 40 mg every 8 hours in addition to vitamin C, vitamin D, and zinc supplementation #2. History of chronic bronchial asthma, currently inactive, remains on bronchodilators #3. Morbid obesity #4. History of prostate cancer and previous prostatectomy #5. History of GERD #6. History of asbestos exposure, with no evidence of asbestosis and no mesothelioma Plan: Continue weaning FiO2 to maintain O2 saturation at or above 90%, continue with IV steroids, patient is status post Remdesivir and 2 units of convalescent plasma in addition to steroids, and bronchodilators, no worsening dyspnea, not ready for discharge, still requiring high flow oxygen. Obtain follow-up inflammatory markers, and chest x-ray, follow-up a d-dimer will continue to follow I performed a history & physical examination of the patient and discussed their management with my nurse practitioner, Meghana Cervantes. I reviewed the nurse practitioner's note and agree with the documented findings and plan of care. Lung sounds are positive for bilat crackles. The findings and the impression was discussed with the patient. I attest to the documentation by the nurse practitioner. Time with Patient: Less than 30
[2020-10-08] MEDS: ALPRAZolam 0.25 MG TAB PO PRN ×2 (13:01→21:17)
--- NOTE | 2020-10-08 14:47 | P.PN ---
Subjective his is a pleasant 59 years old male with multiple medical problems as below including hyperlipidemia, GERD, asthma, history of prostate cancer, PTSD and history of asthma asbestos exposure. He follows at the [facility]. He presents because of dyspnea and generalized weakness and muscle pain. No coughing or chest pain. Patient had persistent dyspnea despite using his inhalers No abdominal pain or fever, no diarrhea or change in bowel habits. No dysuria. No headache or weakness Vitals are unremarkable and patient is afebrile. He is currently saturating 92% on room air Admission labs showing leukocytosis of 15 K, d-dimer was elevated at 0.97, BMP and liver enzymes are unremarkable. Covid test is positive EKG showing sinus tachycardia at [address]-T changes CTA of the chest, [place] pulmonary interstitial pneumonia remained no evidence of pulmonary embolism Was given 1 dose of Solu-Medrol and 1 dose of Zithromax and ceftriaxone 09/17/2020 Patient in mild respiratory distress with significant coughing asking for something to help him, Robitussin ac is been added. He is on 2.5-3 L/m oxygen via nasal cannula Continue with dexamethasone and Lovenox and remdesivir Follow-up chest x-ray and inflammatory markers tomorrow 09/18/2020 Patient is breathing easily, patient is still coughing and not completely resolved. No chest pain. Saturating in the 90s with oxygen 3-5 L/m. Pulmonary team on the case and patient is found closely by Dr. Ocampo, Who ordered inflammatory markers and chest x-ray: Findings consistent with patient's history of pneumonia, progression compared to prior exam .Continue wi th treatment as per recommendation by pulmonary team, is currently on dexamethasone, Lovenox and remdesivir, also on vitamin C and zinc. Antibiotics were stopped by pulmonary team 09/22/2020 Patient was admitted with Covid pneumonia, he is a still on 50 L oxygen via high flow nasal cannula, patient reports some improvement compared to yesterday, he is not in significant respiratory distress, coughing is better controlled. He had 2 loose bowel movement today which is suspicious for Covid gastroenteritis but no abdominal pain or vomiting His d-dimer is slightly elevated at 1.28. Patient currently on vitamin C and zinc Solu-Medrol 60 mg and Lovenox 60 mg twice daily .patient also was placed on insulin 10 units at bedtime for better glucose control (Not home medication ) 09/23/2020 Patient is awake and alert. Sitting on a chair with a breathing machine next to him. Patient with similar respiratory distress as of yesterday. With some bothering cough. A still have diarrhea about twice per day. His oxygen requirements fluctuating between 50-60 L via high flow nasal cannula. Chest x-ray showed stable diffuse bilateral infiltrates. We will check labs and inflammatory markers tomorrow Patient to continue with same treatment O vitamin C, zinc, centimeters 60 mg and Lovenox 60 mg twice daily. 09/24/2020 Patient remains in respiratory distress his breathing feels harder today with Ceasar course coughing. Also he is having 4 bouts of diarrhea through the day. He is a still on 60 L oxygen via high flow nasal cannula Leukocytosis 19 K. BMP stable. Lactate dehydrogenase slightly elevated at 340 as well as C-reactive protein at 1.0. Normal procalcitonin at 0.08 Pulmonary service on the case 09/25/2020 Patient breathing is easier today, and saturating 90% on 50 L via high flow nasal cannula. His still have diarrhea about 4 times per day Sugar is controlled Continue with same treatment as above, vitamin C, zinc, centimeters 60 mg and Lovenox 60 mg twice daily. 09/26/2020 Patient clinically remains the same, one day he had some improvement in oxygen and subsequently later that day and goes up to 60 L, is still suffering from respiratory difficulty and breathing difficulty. His diarrhea is slightly better today. Patient continue on the same treatment with IV Lasix twice daily, Solu-Medrol 60 mg, Lovenox 60 mg twice daily, vitamin C and zinc. Check inflammatory markers and the morning 09/27/2020 Patient today feels breathing easier, his bowel movement is semisolid, he had 2 bowel movements today which were semisolid. His LDH is slightly worse, C-reactive protein was somewhat checked was normal at 0.4 He has been on Solu-Medrol Medrol 60 mg, also Lasix 40 mg twice daily and cefepime twice daily were added to the regimen, besides his other Covid pneumon ia treatment including vitamin C, zinc and Lovenox. History of her on the high side because he is on his steroids and Levemir was increased from 10 to 18 units at bedtime check chest x-ray, inflammatory markers, pro-calcitonin and labs tomorrow 09/28/2020 Patient states he is not having a good day and his oxygen status has worsened. Patient currently on Airvo with an O2 flow rate of 60 and an FiO2 of 90%. D- dimer today trending down at 0.89. White blood count elevated at 28.5, sodium is 139, potassium is 4.6, current creatinine is 0.9. Blood sugar slightly elevated and will continue sliding scale and long-acting 18 units will be added. Patient is also maintained on IV Lasix and will continue at this time along with IV antibiotics in the form of cefepime, Lovenox, vitamin C and E, and zinc supplements, and IV steroids. Discussed with the patient about using his incentive spirometer at least 10 times every hour while awake and increasing activity as tolerated. Patient has been lying in bed all day today. 09/29/2020 Patient is seen and evaluated and follow-up currently sitting up in the chair still remains on Airvo with oxygen saturation 89-90%. No real improvement from yesterday although feels somewhat less fatigued. Blood sugars continue to be slightly elevated and will continue with current regimen. Patient's diet continues to be poor although he states has improved somewhat. Continue to reeducate the patient on incentive spirometer use and increasing activity as tolerated. Patient continues to be severely dyspneic with exertion. 09/30/2020 Patient is seen today and remains on Airvo with O2 flow rate of 60 and an FiO2 of 80. Patient requesting to attempt to wean FiO2 although patient continues to be extremely dyspneic, tachypneic, and anxious. Will repeat a.m. chest x-ray as patient is not really showing much improvement over the last few days. He is currently maintained on IV cefepime and will continue at this time. Patient's blood sugars have been elevated and adjustments have been made that long acting insulin and will continue with sliding scale as well. White blood count slightly improved at 22.7 today, current sodium is 137, potassium is 5.0, creatinine is 0.7. Patient is afebrile. Patient is tolerating diet although not much of an appetite he states. Patient is urinating and having bowel movements with no difficulties. 10/01/2020 Patient is seen in follow-up today continues to be on the airvo with a flow rate of 60 and FiO2 of 80 and oxygen saturation is 92%. Patient states his breathing feels improved today. Patient is more alert and active today. Chest x-ray today shows stable diffuse bilateral airspace disease. She continues on IV steroids along with IV Lasix, zinc, vitamin C and D and Lovenox. Pulmonary following. Blood sugars continue to be elevated and will adjust long-acting and continue with sliding scale. White blood count continues to trend down and is 17.8. Sodium slightly low at 132, potassium is 5.2, and current creatinine is 0.83. 10/02/2020 Patient is seen today continues to be on Airvo and discussed with respiratory about weaning as tolerated. Current O2 flow rate is 60 with an FiO2 of 80 and patient is 90%. Patient is becoming quite agitated about continuing to be at the hospital. Discussed with the patient about being able to maintain oxygenation off of the high flow prior to discharge. Blood sugars continue to be slightly elevated and will make further adjustments on the long-acting at 25 units daily and will continue sliding scale. Will discontinue IV antibiotics as patient has been on for more than one week. White blood count trending down and is currently 17.8 and will repeat a.m. labs. Continue to encourage to increase activity as tolerated and continue with incentive spirometer use. 10/03/2020 Patient remains on 60 liters of oxygen. 10/04/2020 Patient is presently on 40 L of oxygen patient is comparing of pain in the right knee patient does have severe osteoarthritis patient will be started on Toradol as needed patient is already on Pepcid which will be continued will cut down the steroids. 10/08/2020 Patient remains on 60 L saturations are in low 90s in spite of 60 L patient is hemodynamically stable. Patient completed course of cefepime. Constitutional: Denied any fatigue denied any fever. Cardio vascular: denied any chest pain, palpitations Gastrointestinal denied any nausea vomiting Pulmonary: Denied any shortness of breath cough Neurologic denied any new focal deficits All inpatient medications were reviewed and appropriate changes in these medications as dictated in the interval history and assessment and plan. Objective - Vital Signs Vital signs: Vital Signs Temp 98.2 F 10/08/20 10:04 Pulse 89 10/08/20 10:04 Resp 20 10/08/20 10:04 BP 144/77 10/08/20 10:04 Pulse Ox 90 L 10/08/20 10:04 Intake & Output 10/07/20 10/08/20 10/08/20 18:59 06:59 18:59 Output Total 1500 500 Balance -1500 -500 Output: Urine 1500 500 Other: Voiding Method Urinal Urinal # Voids 1 # Bowel Movements 1 1 - Exam PHYSICAL EXAMINATION: GENERAL: The patient is alert and oriented x3, not in any acute distress. Well developed, well nourished. HEENT: Pupils are round and equally reacting to light. EOMI. No scleral icterus. No conjunctival pallor. Normocephalic, atraumatic. No pharyngeal erythema. No thyromegaly. CARDIOVASCULAR: S1 and S2 present. No murmurs, rubs, or gallops. PULMONARY: Chest is clear to auscultation, no wheezing or crackles. ABDOMEN: Soft, nontender, nondistended, normoactive bowel sounds. No palpable organomegaly. MUSCULOSKELETAL: No joint swelling or deformity. EXTREMITIES: No cyanosis, clubbing, or pedal edema. NEUROLOGICAL: Gross neurological examination did not reveal any focal deficits. SKIN: No rashes. Note: Because of COVID 19 isolation, some of the history and physical exam findings are indirect and obtained from nursing staff, and other physician examinations to avoid unnecessary contact with the patient. - Labs CBC & Chem 7: 10/03/20 06:53 10/07/20 05:46 Labs: Abnormal Lab Results - Last 24 Hours (Table) 10/07/20 10/07/20 Range/Units 16:59 19:49 POC Glucose (mg/dL) 254 H 259 H (75-99) mg/dL Assessment and Plan Plan: Covid 19 pneumonia Sepsis, present on admission, secondary to above Covid gastroenteritis acute hypoxic respiratory failure secondary to covid 19 Hyperlipidemia GERD History of asthma, without any acute exacerbation History of prostate cancer PTSD History of asbestos exposure DVT prophylaxis: Subcutaneous Lovenox GI Prophylaxis: Ppi Plan: Continue to attempt to wean FiO2 as tolerated. Continue to monitor blood sugars and titrate medications accordingly. Pulmonary following. Encourage the patient to increase activity as tolerated and continue with incentive spirometer. Further recommendations to follow based on the clinical course.
[2020-10-08] MEDS: MELATONIN 5 MG TABLET PO SCH (21:17)
[2020-10-08] MEDS: INSULIN DETEMIR (LEVEMIR) 100 UNIT/ML SYR SQ SCH (21:17)
[2020-10-08] MEDS: traZODone HCL 50 MG TAB PO PRN (21:17)
--- NOTE | 2020-10-09 06:53 | XR ---
EXAM: XR Chest, 1 View CLINICAL HISTORY: ITS.REASON XR Reason: COVID 19 TECHNIQUE: Frontal view of the chest. COMPARISON: 10/03/2020 IMPRESSION: Extensive left more than right lung opacities are again seen, not significantly changed. Unchanged heart size. No significant effusion.
[2020-10-09] MEDS: INSULIN ASPART (NovoLOG) 100 UNIT/ML VIAL SQ SCH ×7 (08:22→22:01)
[2020-10-09] MEDS: FAMOTIDINE 20 MG TAB PO SCH (08:23)
[2020-10-09] MEDS: ENOXAPARIN 60 MG/0.6 ML SYRINGE SQ SCH ×2 (08:23→22:01)
[2020-10-09] MEDS: FUROSEMIDE 10 MG/ML 4 ML VIAL IV SCH (08:24)
[2020-10-09] MEDS: BENZONATATE 100 MG CAP PO SCH ×3 (08:24→22:01)
[2020-10-09] MEDS: amLODIPine 5 MG TAB PO SCH (08:24)
[2020-10-09] MEDS: CHOLECALCIFEROL 400 UNIT TAB PO SCH (08:24)
[2020-10-09] MEDS: ASCORBIC ACID 500 MG TAB PO SCH (08:24)
[2020-10-09] MEDS: buPROPion 75 MG TAB PO SCH (08:24)
[2020-10-09] MEDS: methylPREDNISolone SOD SUCCI 40 MG/ML 1 ML VIAL IV SCH ×2 (08:25→16:39)
[2020-10-09] MEDS: ATORVASTATIN 80 MG TAB PO SCH (08:25)
[2020-10-09] MEDS: ZINC SULFATE 220 MG CAP PO SCH (08:25)
[2020-10-09] MEDS: ALBUTEROL HFA INHALER INHALATION SCH ×4 (08:31→22:05)
[2020-10-09] MEDS: SYMBICORT 160-4.5 MCG INHALER INHALATION SCH ×2 (08:32→22:05)
[2020-10-09] MEDS: KETOROLAC 15 MG/ML 1 ML VIAL IVP PRN (09:41)
[2020-10-09 11:00] LABS: C Reactive Protein <0.4 mg/dL (0.0-0.8); LDH 434 U/L (120-246)
--- NOTE | 2020-10-09 12:11 | P.PN ---
Subjective Progress Note Date: 10/09/20 Principal diagnosis: CoVID 19 pneumonitis Patient was seen and can today 10/01/2020 in follow-up on the regular medical floor. He is awake and alert in no acute distress. Up ambulating in his room. No worsening shortness of breath, cough or congestion. He is still requiring are both alive flow nasal cannula at 60 L and 80% FiO2 to maintain O2 saturation low 90s. He has completed a course of Remdesivir, received convalescent plasma, remains on Lovenox and IV Solu-Medrol. On IV diuretics. Chest x-ray shows stable diffuse bilateral airspace disease. The patient is seen today 10/02/2020 in follow-up on the regular medical floor. He is currently sitting up in a chair at the bedside. Awake and alert in no acute distress. He remains on AirVo high flow oxygen at 60 L and 80% FiO2 to maintain O2 saturation in the low 90s. States he is feeling better today. A bit frustrated of the duration of his illness. This is day number 17. He remains on bronchodilators, IV Solu-Medrol, empiric antibiotics, IV diuretics, vitamin supplements. Anticoagulated with Lovenox. The patient is seen today 10/03/2020 in follow-up on the regular medical floor. He is awake and alert in no acute distress. Up in a chair at the bedside. Continued on airflow high flow oxygen at 60 L and 80% FiO2 with O2 saturation 92%. Lungs continue to have crackles in the bilateral posterior bases. He has completed his course of Remdesivir. He is receiving a second unit of convalescent plasma. He remains on Lovenox, IV Solu-Medrol, IV diuretics, Symbicort, albuterol. Blood and sputum cultures reveal no growth. White count 19.6. Hemoglobin 15.6. Lymphocytes 0.3. Chest x-ray shows some slight improvement in the bilateral peripheral CoVID pneumonia. The patient is seen today 10/04/2020 in follow-up on the regular medical floor. He is currently sitting up in a chair at the bedside. Awake and alert in no acute distress. Breathing a bit easier today compared to yesterday. No worsening shortness of breath, cough or congestion. Remains on airflow at 60 L and 80% FiO2. Current saturation 92%. He is afebrile. He remains on Lovenox, IV Solu-Medrol, IV diuretics, Symbicort, albuterol. He has completed a course of Remdesivir. He has received 2 units of convalescent plasma. The patient is seen today 10/09/2020 in follow-up on the regular medical floor. He is awake and alert in no acute distress. Sitting up in a chair at the bedside. He is continued on the AirVo high flow oxygen device at 60 L and down to 39% FiO2. He is feeling better. Blood short of breath. Less cough and congestion. D-dimer 0.41. LDH 434. C-reactive protein less than 0.4. He rem ains on IV Solu-Medrol, IV diuretics, Lovenox, vitamin supplements. Objective - Vital Signs Vital signs: Vital Signs Temp 97.9 F 10/09/20 11:00 Pulse 87 10/09/20 11:00 Resp 18 10/09/20 11:00 BP 156/73 10/09/20 11:00 Pulse Ox 91 L 10/09/20 11:00 Intake & Output 10/08/20 10/09/20 10/09/20 18:59 06:59 18:59 Intake Total 540 Balance 540 Intake: Oral 540 Other: Voiding Method Urinal Bedside Commode Bedside Commode Urinal Urinal # Voids 1 2 2 # Bowel Movements 1 1 - Exam GENERAL EXAM: Alert, obese, 59-year-old gentleman, remains on AirVo high flow oxygen at 60 L and 39% FiO2, comfortable in no apparent distress. HEAD: Normocephalic. EYES: Normal reaction of pupils, equal size. NOSE: Clear with pink turbinates. THROAT: No erythema or exudates. NECK: No masses, no JVD. CHEST: No chest wall deformity. LUNGS: Equal air entry with bilateral scattered rhonchi, crackles in the posterior bases. CVS: S1 and S2 normal with no audible murmur, regular rhythm. ABDOMEN: No hepatosplenomegaly, normal bowel sounds, no guarding or rigidity. SPINE: No scoliosis or deformity SKIN: No rashes CENTRAL NERVOUS SYSTEM: No focal deficits, tone is normal in all 4 extremities. EXTREMITIES: There is trace peripheral edema. No clubbing, no cyanosis. Peripheral pulses are intact. - Labs CBC & Chem 7: 10/03/20 06:53 10/07/20 05:46 Labs: Abnormal Lab Results - Last 24 Hours (Table) 10/09/20 Range/Units 05:43 Lactate Dehydrogenase 434 H (120-246) U/L Assessment and Plan Assessment: 1 Acute hypoxic respiratory failure secondary to acute CoVID 19 pneumonitis, currently on AirVo 60 L and 39% FiO2. Completed Remdesivir, received convalescent plasma x 2. Remains on Lovenox, IV Solu-Medrol, and vitamin supplements. 2 History of asthma, currently inactive. On Symbicort and albuterol 3 History of prostate cancer status post prostatectomy 4 Obesity 5 Lifelong nonsmoker 6 Hyperlipidemia 7 History of gastric esophageal reflux disease 8 History of asbestos 6 exposure while in the Plan: The patient was seen and evaluated by Dr. Ocampo Continue IV diuretics, IV Solu-Medrol, Lovenox and vitamin supplements Continue AirVo high flow Titrate down the FiO2 as tolerated We'll continue to follow I, the cosigning physician, performed a history & physical examination of the patient. Lungs sounds with few scattered rhonchi, crackles in the bilateral posterior bases. Maintaining good O2 saturations in the 90s on AirVo high flow at 60 L and 39% FiO2. I discussed the assessment and plan of care with my nurse practitioner, Pauly Grayson. I attest to the above note as dictated by her.
--- NOTE | 2020-10-09 12:25 | P.PN ---
Subjective his is a pleasant 59 years old male with multiple medical problems as below including hyperlipidemia, GERD, asthma, history of prostate cancer, PTSD and history of asthma asbestos exposure. He follows at the [facility]. He presents because of dyspnea and generalized weakness and muscle pain. No coughing or chest pain. Patient had persistent dyspnea despite using his inhalers No abdominal pain or fever, no diarrhea or change in bowel habits. No dysuria. No headache or weakness Vitals are unremarkable and patient is afebrile. He is currently saturating 92% on room air Admission labs showing leukocytosis of 15 K, d-dimer was elevated at 0.97, BMP and liver enzymes are unremarkable. Covid test is positive EKG showing sinus tachycardia at [address]-T changes CTA of the chest, [place] pulmonary interstitial pneumonia remained no evidence of pulmonary embolism Was given 1 dose of Solu-Medrol and 1 dose of Zithromax and ceftriaxone 09/17/2020 Patient in mild respiratory distress with significant coughing asking for something to help him, Robitussin ac is been added. He is on 2.5-3 L/m oxygen via nasal cannula Continue with dexamethasone and Lovenox and remdesivir Follow-up chest x-ray and inflammatory markers tomorrow 09/18/2020 Patient is breathing easily, patient is still coughing and not completely resolved. No chest pain. Saturating in the 90s with oxygen 3-5 L/m. Pulmonary team on the case and patient is found closely by Dr. Ocampo, Who ordered inflammatory markers and chest x-ray: Findings consistent with patient's history of pneumonia, progression compared to prior exam .Continue wi th treatment as per recommendation by pulmonary team, is currently on dexamethasone, Lovenox and remdesivir, also on vitamin C and zinc. Antibiotics were stopped by pulmonary team 09/22/2020 Patient was admitted with Covid pneumonia, he is a still on 50 L oxygen via high flow nasal cannula, patient reports some improvement compared to yesterday, he is not in significant respiratory distress, coughing is better controlled. He had 2 loose bowel movement today which is suspicious for Covid gastroenteritis but no abdominal pain or vomiting His d-dimer is slightly elevated at 1.28. Patient currently on vitamin C and zinc Solu-Medrol 60 mg and Lovenox 60 mg twice daily .patient also was placed on insulin 10 units at bedtime for better glucose control (Not home medication ) 09/23/2020 Patient is awake and alert. Sitting on a chair with a breathing machine next to him. Patient with similar respiratory distress as of yesterday. With some bothering cough. A still have diarrhea about twice per day. His oxygen requirements fluctuating between 50-60 L via high flow nasal cannula. Chest x-ray showed stable diffuse bilateral infiltrates. We will check labs and inflammatory markers tomorrow Patient to continue with same treatment O vitamin C, zinc, centimeters 60 mg and Lovenox 60 mg twice daily. 09/24/2020 Patient remains in respiratory distress his breathing feels harder today with Ceasar course coughing. Also he is having 4 bouts of diarrhea through the day. He is a still on 60 L oxygen via high flow nasal cannula Leukocytosis 19 K. BMP stable. Lactate dehydrogenase slightly elevated at 340 as well as C-reactive protein at 1.0. Normal procalcitonin at 0.08 Pulmonary service on the case 09/25/2020 Patient breathing is easier today, and saturating 90% on 50 L via high flow nasal cannula. His still have diarrhea about 4 times per day Sugar is controlled Continue with same treatment as above, vitamin C, zinc, centimeters 60 mg and Lovenox 60 mg twice daily. 09/26/2020 Patient clinically remains the same, one day he had some improvement in oxygen and subsequently later that day and goes up to 60 L, is still suffering from respiratory difficulty and breathing difficulty. His diarrhea is slightly better today. Patient continue on the same treatment with IV Lasix twice daily, Solu-Medrol 60 mg, Lovenox 60 mg twice daily, vitamin C and zinc. Check inflammatory markers and the morning 09/27/2020 Patient today feels breathing easier, his bowel movement is semisolid, he had 2 bowel movements today which were semisolid. His LDH is slightly worse, C-reactive protein was somewhat checked was normal at 0.4 He has been on Solu-Medrol Medrol 60 mg, also Lasix 40 mg twice daily and cefepime twice daily were added to the regimen, besides his other Covid pneumon ia treatment including vitamin C, zinc and Lovenox. History of her on the high side because he is on his steroids and Levemir was increased from 10 to 18 units at bedtime check chest x-ray, inflammatory markers, pro-calcitonin and labs tomorrow 09/28/2020 Patient states he is not having a good day and his oxygen status has worsened. Patient currently on Airvo with an O2 flow rate of 60 and an FiO2 of 90%. D- dimer today trending down at 0.89. White blood count elevated at 28.5, sodium is 139, potassium is 4.6, current creatinine is 0.9. Blood sugar slightly elevated and will continue sliding scale and long-acting 18 units will be added. Patient is also maintained on IV Lasix and will continue at this time along with IV antibiotics in the form of cefepime, Lovenox, vitamin C and E, and zinc supplements, and IV steroids. Discussed with the patient about using his incentive spirometer at least 10 times every hour while awake and increasing activity as tolerated. Patient has been lying in bed all day today. 09/29/2020 Patient is seen and evaluated and follow-up currently sitting up in the chair still remains on Airvo with oxygen saturation 89-90%. No real improvement from yesterday although feels somewhat less fatigued. Blood sugars continue to be slightly elevated and will continue with current regimen. Patient's diet continues to be poor although he states has improved somewhat. Continue to reeducate the patient on incentive spirometer use and increasing activity as tolerated. Patient continues to be severely dyspneic with exertion. 09/30/2020 Patient is seen today and remains on Airvo with O2 flow rate of 60 and an FiO2 of 80. Patient requesting to attempt to wean FiO2 although patient continues to be extremely dyspneic, tachypneic, and anxious. Will repeat a.m. chest x-ray as patient is not really showing much improvement over the last few days. He is currently maintained on IV cefepime and will continue at this time. Patient's blood sugars have been elevated and adjustments have been made that long acting insulin and will continue with sliding scale as well. White blood count slightly improved at 22.7 today, current sodium is 137, potassium is 5.0, creatinine is 0.7. Patient is afebrile. Patient is tolerating diet although not much of an appetite he states. Patient is urinating and having bowel movements with no difficulties. 10/01/2020 Patient is seen in follow-up today continues to be on the airvo with a flow rate of 60 and FiO2 of 80 and oxygen saturation is 92%. Patient states his breathing feels improved today. Patient is more alert and active today. Chest x-ray today shows stable diffuse bilateral airspace disease. She continues on IV steroids along with IV Lasix, zinc, vitamin C and D and Lovenox. Pulmonary following. Blood sugars continue to be elevated and will adjust long-acting and continue with sliding scale. White blood count continues to trend down and is 17.8. Sodium slightly low at 132, potassium is 5.2, and current creatinine is 0.83. 10/02/2020 Patient is seen today continues to be on Airvo and discussed with respiratory about weaning as tolerated. Current O2 flow rate is 60 with an FiO2 of 80 and patient is 90%. Patient is becoming quite agitated about continuing to be at the hospital. Discussed with the patient about being able to maintain oxygenation off of the high flow prior to discharge. Blood sugars continue to be slightly elevated and will make further adjustments on the long-acting at 25 units daily and will continue sliding scale. Will discontinue IV antibiotics as patient has been on for more than one week. White blood count trending down and is currently 17.8 and will repeat a.m. labs. Continue to encourage to increase activity as tolerated and continue with incentive spirometer use. 10/03/2020 Patient remains on 60 liters of oxygen. 10/04/2020 Patient is presently on 40 L of oxygen patient is comparing of pain in the right knee patient does have severe osteoarthritis patient will be started on Toradol as needed patient is already on Pepcid which will be continued will cut down the steroids. 10/08/2020 Patient remains on 60 L saturations are in low 90s in spite of 60 L patient is hemodynamically stable. Patient completed course of cefepime. 10/09/2020 Patient is presently on 35 L of oxygen d-dimer is normal. LDH is minimally elevated Constitutional: Denied any fatigue denied any fever. Cardio vascular: denied any chest pain, palpitations Gastrointestinal denied any nausea vomiting Pulmonary: Denied any shortness of breath cough Neurologic denied any new focal deficits All inpatient medications were reviewed and appropriate changes in these medications as dictated in the interval history and assessment and plan. Objective - Vital Signs Vital signs: Vital Signs Temp 97.9 F 10/09/20 11:00 Pulse 87 10/09/20 11:00 Resp 18 10/09/20 11:00 BP 156/73 10/09/20 11:00 Pulse Ox 91 L 10/09/20 11:00 Intake & Output 10/08/20 10/09/20 10/09/20 18:59 06:59 18:59 Intake Total 540 Balance 540 Intake: Oral 540 Other: Voiding Method Urinal Bedside Commode Bedside Commode Urinal Urinal # Voids 1 2 2 # Bowel Movements 1 1 - Exam PHYSICAL EXAMINATION: GENERAL: The patient is alert and oriented x3, not in any acute distress. Well developed, well nourished. HEENT: Pupils are round and equally reacting to light. EOMI. No scleral icterus. No conjunctival pallor. Normocephalic, atraumatic. No pharyngeal erythema. No thyromegaly. CARDIOVASCULAR: S1 and S2 present. No murmurs, rubs, or gallops. PULMONARY: Chest is clear to auscultation, no wheezing or crackles. ABDOMEN: Soft, nontender, nondistended, normoactive bowel sounds. No palpable organomegaly. MUSCULOSKELETAL: No joint swelling or deformity. EXTREMITIES: No cyanosis, clubbing, or pedal edema. NEUROLOGICAL: Gross neurological examination did not reveal any focal deficits. SKIN: No rashes. Note: Because of COVID 19 isolation, some of the history and physical exam findings are indirect and obtained from nursing staff, and other physician examinations to avoid unnecessary contact with the patient. - Labs CBC & Chem 7: 10/03/20 06:53 10/07/20 05:46 Labs: Abnormal Lab Results - Last 24 Hours (Table) 10/09/20 Range/Units 05:43 Lactate Dehydrogenase 434 H (120-246) U/L Assessment and Plan Plan: Covid 19 pneumonia Sepsis, present on admission, secondary to above Covid gastroenteritis acute hypoxic respiratory failure secondary to covid 19 Hyperlipidemia GERD History of asthma, without any acute exacerbation History of prostate cancer PTSD History of asbestos exposure DVT prophylaxis: Subcutaneous Lovenox GI Prophylaxis: Ppi Plan: Continue to attempt to wean FiO2 as tolerated. Continue to monitor blood sugars and titrate medications accordingly. Pulmonary following. Encourage the patient to increase activity as tolerated and continue with incentive spirometer. Further recommendations to follow based on the clinical course.
[2020-10-09] MEDS: INSULIN DETEMIR (LEVEMIR) 100 UNIT/ML SYR SQ SCH (22:01)
[2020-10-09] MEDS: MELATONIN 5 MG TABLET PO SCH (22:01)
[2020-10-09] MEDS: traZODone HCL 50 MG TAB PO PRN (23:31)
[2020-10-10] MEDS: methylPREDNISolone SOD SUCCI 40 MG/ML 1 ML VIAL IV SCH ×4 (00:02→23:51)
[2020-10-10] MEDS: SYMBICORT 160-4.5 MCG INHALER INHALATION SCH ×2 (07:52→19:10)
[2020-10-10] MEDS: ALBUTEROL HFA INHALER INHALATION SCH ×4 (07:52→19:10)
[2020-10-10] MEDS: INSULIN ASPART (NovoLOG) 100 UNIT/ML VIAL SQ SCH ×7 (09:27→21:46)
[2020-10-10] MEDS: BENZONATATE 100 MG CAP PO SCH ×3 (10:33→21:45)
[2020-10-10] MEDS: ALPRAZolam 0.25 MG TAB PO PRN ×2 (10:33→10:56)
[2020-10-10] MEDS: FAMOTIDINE 20 MG TAB PO SCH (10:33)
[2020-10-10] MEDS: ZINC SULFATE 220 MG CAP PO SCH (10:33)
[2020-10-10] MEDS: buPROPion 75 MG TAB PO SCH (10:33)
[2020-10-10] MEDS: CHOLECALCIFEROL 400 UNIT TAB PO SCH (10:33)
[2020-10-10] MEDS: ASCORBIC ACID 500 MG TAB PO SCH (10:34)
[2020-10-10] MEDS: ENOXAPARIN 60 MG/0.6 ML SYRINGE SQ SCH ×2 (10:34→21:46)
[2020-10-10] MEDS: FUROSEMIDE 10 MG/ML 4 ML VIAL IV SCH (10:34)
[2020-10-10] MEDS: amLODIPine 5 MG TAB PO SCH (10:34)
[2020-10-10] MEDS: ATORVASTATIN 80 MG TAB PO SCH (10:34)
[2020-10-10] MEDS: guaiFENesin-Coden 100-10MG/5ML 10 ML CUP PO PRN (10:35)
--- NOTE | 2020-10-10 12:13 | P.PN ---
Subjective Progress Note Date: 10/10/20 Principal diagnosis: CoVID 19 pneumonitis Patient was seen and can today 10/01/2020 in follow-up on the regular medical floor. He is awake and alert in no acute distress. Up ambulating in his room. No worsening shortness of breath, cough or congestion. He is still requiring are both alive flow nasal cannula at 60 L and 80% FiO2 to maintain O2 saturation low 90s. He has completed a course of Remdesivir, received convalescent plasma, remains on Lovenox and IV Solu-Medrol. On IV diuretics. Chest x-ray shows stable diffuse bilateral airspace disease. The patient is seen today 10/02/2020 in follow-up on the regular medical floor. He is currently sitting up in a chair at the bedside. Awake and alert in no acute distress. He remains on AirVo high flow oxygen at 60 L and 80% FiO2 to maintain O2 saturation in the low 90s. States he is feeling better today. A bit frustrated of the duration of his illness. This is day number 17. He remains on bronchodilators, IV Solu-Medrol, empiric antibiotics, IV diuretics, vitamin supplements. Anticoagulated with Lovenox. The patient is seen today 10/03/2020 in follow-up on the regular medical floor. He is awake and alert in no acute distress. Up in a chair at the bedside. Continued on airflow high flow oxygen at 60 L and 80% FiO2 with O2 saturation 92%. Lungs continue to have crackles in the bilateral posterior bases. He has completed his course of Remdesivir. He is receiving a second unit of convalescent plasma. He remains on Lovenox, IV Solu-Medrol, IV diuretics, Symbicort, albuterol. Blood and sputum cultures reveal no growth. White count 19.6. Hemoglobin 15.6. Lymphocytes 0.3. Chest x-ray shows some slight improvement in the bilateral peripheral CoVID pneumonia. The patient is seen today 10/04/2020 in follow-up on the regular medical floor. He is currently sitting up in a chair at the bedside. Awake and alert in no acute distress. Breathing a bit easier today compared to yesterday. No worsening shortness of breath, cough or congestion. Remains on airflow at 60 L and 80% FiO2. Current saturation 92%. He is afebrile. He remains on Lovenox, IV Solu-Medrol, IV diuretics, Symbicort, albuterol. He has completed a course of Remdesivir. He has received 2 units of convalescent plasma. The patient is seen today 10/09/2020 in follow-up on the regular medical floor. He is awake and alert in no acute distress. Sitting up in a chair at the bedside. He is continued on the AirVo high flow oxygen device at 60 L and down to 39% FiO2. He is feeling better. Blood short of breath. Less cough and congestion. D-dimer 0.41. LDH 434. C-reactive protein less than 0.4. He rem ains on IV Solu-Medrol, IV diuretics, Lovenox, vitamin supplements. The patient is seen today 10/10/2020 in follow-up on the regular medical floor. Sitting up in a chair at the bedside. Awake and alert in no acute distress. He is continuing to maintain good O2 saturations in the 90s on AirVo at 50 L and 32% FiO2. He remains afebrile. Hemodynamically stable. D-dimer 0.38. He remains on Lovenox, IV diuretics, IV Solu-Medrol, bronchodilators, vitamin supplements. Objective - Vital Signs Vital signs: Vital Signs Temp 97.6 F 10/10/20 05:00 Pulse 72 10/10/20 05:00 Resp 20 10/10/20 05:00 BP 121/58 10/10/20 05:00 Pulse Ox 88 L 10/10/20 11:28 Intake & Output 10/09/20 10/10/20 10/10/20 18:59 06:59 18:59 Intake Total 590 Output Total 1050 850 Balance -460 -850 Intake: Oral 590 Output: Urine 1050 850 Stool 0 0 Other: Voiding Method Bedside Commode Bedside Commode Urinal Urinal # Voids 3 3 1 # Bowel Movements 1 1 - Exam GENERAL EXAM: Alert, obese, 59-year-old gentleman, remains on AirVo high flow oxygen at 50 L and 32% FiO2, comfortable in no apparent distress. HEAD: Normocephalic. EYES: Normal reaction of pupils, equal size. NOSE: Clear with pink turbinates. THROAT: No erythema or exudates. NECK: No masses, no JVD. CHEST: No chest wall deformity. LUNGS: Equal air entry with bilateral scattered rhonchi, crackles in the posterior bases. CVS: S1 and S2 normal with no audible murmur, regular rhythm. ABDOMEN: No hepatosplenomegaly, normal bowel sounds, no guarding or rigidity. SPINE: No scoliosis or deformity SKIN: No rashes CENTRAL NERVOUS SYSTEM: No focal deficits, tone is normal in all 4 extremities. EXTREMITIES: There is trace peripheral edema. No clubbing, no cyanosis. Peripheral pulses are intact. - Labs CBC & Chem 7: 10/03/20 06:53 10/07/20 05:46 Assessment and Plan Assessment: 1 Acute hypoxic respiratory failure secondary to acute CoVID 19 pneumonitis, currently on AirVo 50 L and 32% FiO2. Completed Remdesivir, received convalescent plasma x 2. Remains on Lovenox, IV Solu-Medrol, IV diuretics, bronchodilators and vitamin supplements. 2 History of asthma, currently inactive. On Symbicort and albuterol 3 History of prostate cancer status post prostatectomy 4 Obesity 5 Lifelong nonsmoker 6 Hyperlipidemia 7 History of gastric esophageal reflux disease 8 History of asbestos 6 exposure while in the Plan: The patient was seen and evaluated by Dr. Ocampo Continue current treatment plan Titrate down the FiO2 as tolerated Increase his activity as tolerated We'll continue to follow I, the cosigning physician, performed a history & physical examination of the patient. Lungs sounds with few scattered rhonchi, crackles in the bilateral posterior bases. Maintaining good O2 saturations in the 90s on AirVo high flow at 50 L and 32% FiO2. I discussed the assessment and plan of care with my nurse practitioner, Pauly Grayson. I attest to the above note as dictated by her.
[2020-10-10] MEDS ORDERED: FUROSEMIDE 10 MG/ML 4 ML VIAL IV STA (12:38)
--- NOTE | 2020-10-10 12:42 | P.PN ---
Subjective his is a pleasant 59 years old male with multiple medical problems as below including hyperlipidemia, GERD, asthma, history of prostate cancer, PTSD and history of asthma asbestos exposure. He follows at the [facility]. He presents because of dyspnea and generalized weakness and muscle pain. No coughing or chest pain. Patient had persistent dyspnea despite using his inhalers No abdominal pain or fever, no diarrhea or change in bowel habits. No dysuria. No headache or weakness Vitals are unremarkable and patient is afebrile. He is currently saturating 92% on room air Admission labs showing leukocytosis of 15 K, d-dimer was elevated at 0.97, BMP and liver enzymes are unremarkable. Covid test is positive EKG showing sinus tachycardia at [address]-T changes CTA of the chest, Groundglass pulmonary interstitial pneumonia remained no evidence of pulmonary embolism Was given 1 dose of Solu-Medrol and 1 dose of Zithromax and ceftriaxone 09/17/2020 Patient in mild respiratory distress with significant coughing asking for something to help him, Robitussin ac is been added. He is on 2.5-3 L/m oxygen via nasal cannula Continue with dexamethasone and Lovenox and remdesivir Follow-up chest x-ray and inflammatory markers tomorrow 09/18/2020 Patient is breathing easily, patient is still coughing and not completely resolved. No chest pain. Saturating in the 90s with oxygen 3-5 L/m. Pulmonary team on the case and patient is found closely by Dr. Ocampo, Who ordered inflammatory markers and chest x-ray: Findings consistent with patient's history of pneumonia, progression compared to prior exam .Continue wi th treatment as per recommendation by pulmonary team, is currently on dexamethasone, Lovenox and remdesivir, also on vitamin C and zinc. Antibiotics were stopped by pulmonary team 09/22/2020 Patient was admitted with Covid pneumonia, he is a still on 50 L oxygen via high flow nasal cannula, patient reports some improvement compared to yesterday, he is not in significant respiratory distress, coughing is better controlled. He had 2 loose bowel movement today which is suspicious for Covid gastroenteritis but no abdominal pain or vomiting His d-dimer is slightly elevated at 1.28. Patient currently on vitamin C and zinc Solu-Medrol 60 mg and Lovenox 60 mg twice daily .patient also was placed on insulin 10 units at bedtime for better glucose control (Not home medication ) 09/23/2020 Patient is awake and alert. Sitting on a chair with a breathing machine next to him. Patient with similar respiratory distress as of yesterday. With some bothering cough. A still have diarrhea about twice per day. His oxygen requirements fluctuating between 50-60 L via high flow nasal cannula. Chest x-ray showed stable diffuse bilateral infiltrates. We will check labs and inflammatory markers tomorrow Patient to continue with same treatment O vitamin C, zinc, centimeters 60 mg and Lovenox 60 mg twice daily. 09/24/2020 Patient remains in respiratory distress his breathing feels harder today with Ceasar course coughing. Also he is having 4 bouts of diarrhea through the day. He is a still on 60 L oxygen via high flow nasal cannula Leukocytosis 19 K. BMP stable. Lactate dehydrogenase slightly elevated at 340 as well as C-reactive protein at 1.0. Normal procalcitonin at 0.08 Pulmonary service on the case 09/25/2020 Patient breathing is easier today, and saturating 90% on 50 L via high flow nasal cannula. His still have diarrhea about 4 times per day Sugar is controlled Continue with same treatment as above, vitamin C, zinc, centimeters 60 mg and Lovenox 60 mg twice daily. 09/26/2020 Patient clinically remains the same, one day he had some improvement in oxygen and subsequently later that day and goes up to 60 L, is still suffering from respiratory difficulty and breathing difficulty. His diarrhea is slightly better today. Patient continue on the same treatment with IV Lasix twice daily, Solu-Medrol 60 mg, Lovenox 60 mg twice daily, vitamin C and zinc. Check inflammatory markers and the morning 09/27/2020 Patient today feels breathing easier, his bowel movement is semisolid, he had 2 bowel movements today which were semisolid. His LDH is slightly worse, C-reactive protein was somewhat checked was normal at 0.4 He has been on Solu-Medrol Medrol 60 mg, also Lasix 40 mg twice daily and cefepime twice daily were added to the regimen, besides his other Covid pneumon ia treatment including vitamin C, zinc and Lovenox. History of her on the high side because he is on his steroids and Levemir was increased from 10 to 18 units at bedtime check chest x-ray, inflammatory markers, pro-calcitonin and labs tomorrow 09/28/2020 Patient states he is not having a good day and his oxygen status has worsened. Patient currently on Airvo with an O2 flow rate of 60 and an FiO2 of 90%. D- dimer today trending down at 0.89. White blood count elevated at 28.5, sodium is 139, potassium is 4.6, current creatinine is 0.9. Blood sugar slightly elevated and will continue sliding scale and long-acting 18 units will be added. Patient is also maintained on IV Lasix and will continue at this time along with IV antibiotics in the form of cefepime, Lovenox, vitamin C and E, and zinc supplements, and IV steroids. Discussed with the patient about using his incentive spirometer at least 10 times every hour while awake and increasing activity as tolerated. Patient has been lying in bed all day today. 09/29/2020 Patient is seen and evaluated and follow-up currently sitting up in the chair still remains on Airvo with oxygen saturation 89-90%. No real improvement from yesterday although feels somewhat less fatigued. Blood sugars continue to be slightly elevated and will continue with current regimen. Patient's diet continues to be poor although he states has improved somewhat. Continue to reeducate the patient on incentive spirometer use and increasing activity as tolerated. Patient continues to be severely dyspneic with exertion. 09/30/2020 Patient is seen today and remains on Airvo with O2 flow rate of 60 and an FiO2 of 80. Patient requesting to attempt to wean FiO2 although patient continues to be extremely dyspneic, tachypneic, and anxious. Will repeat a.m. chest x-ray as patient is not really showing much improvement over the last few days. He is currently maintained on IV cefepime and will continue at this time. Patient's blood sugars have been elevated and adjustments have been made that long acting insulin and will continue with sliding scale as well. White blood count slightly improved at 22.7 today, current sodium is 137, potassium is 5.0, creatinine is 0.7. Patient is afebrile. Patient is tolerating diet although not much of an appetite he states. Patient is urinating and having bowel movements with no difficulties. 10/01/2020 Patient is seen in follow-up today continues to be on the airvo with a flow rate of 60 and FiO2 of 80 and oxygen saturation is 92%. Patient states his breathing feels improved today. Patient is more alert and active today. Chest x-ray today shows stable diffuse bilateral airspace disease. She continues on IV steroids along with IV Lasix, zinc, vitamin C and D and Lovenox. Pulmonary following. Blood sugars continue to be elevated and will adjust long-acting and continue with sliding scale. White blood count continues to trend down and is 17.8. Sodium slightly low at 132, potassium is 5.2, and current creatinine is 0.83. 10/02/2020 Patient is seen today continues to be on Airvo and discussed with respiratory about weaning as tolerated. Current O2 flow rate is 60 with an FiO2 of 80 and patient is 90%. Patient is becoming quite agitated about continuing to be at the hospital. Discussed with the patient about being able to maintain oxygenation off of the high flow prior to discharge. Blood sugars continue to be slightly elevated and will make further adjustments on the long-acting at 25 units daily and will continue sliding scale. Will discontinue IV antibiotics as patient has been on for more than one week. White blood count trending down and is currently 17.8 and will repeat a.m. labs. Continue to encourage to increase activity as tolerated and continue with incentive spirometer use. 10/03/2020 Patient remains on 60 liters of oxygen. 10/04/2020 Patient is presently on 40 L of oxygen patient is comparing of pain in the right knee patient does have severe osteoarthritis patient will be started on Toradol as needed patient is already on Pepcid which will be continued will cut down the steroids. 10/08/2020 Patient remains on 60 L saturations are in low 90s in spite of 60 L patient is hemodynamically stable. Patient completed course of cefepime. Patient has some pedal edema requesting for Lasix patient will be given a dose of Lasix and the compression socks. 10/09/2020 Patient is presently on 35 L of oxygen d-dimer is normal. LDH is minimally e levated Constitutional: Denied any fatigue denied any fever. Cardio vascular: denied any chest pain, palpitations Gastrointestinal denied any nausea vomiting Pulmonary: Denied any shortness of breath cough Neurologic denied any new focal deficits All inpatient medications were reviewed and appropriate changes in these medications as dictated in the interval history and assessment and plan. Objective - Vital Signs Vital signs: Vital Signs Temp 97.6 F 10/10/20 05:00 Pulse 72 10/10/20 05:00 Resp 20 10/10/20 05:00 BP 121/58 10/10/20 05:00 Pulse Ox 88 L 10/10/20 11:28 Intake & Output 10/09/20 10/10/20 10/10/20 18:59 06:59 18:59 Intake Total 590 Output Total 1050 850 Balance -460 -850 Intake: Oral 590 Output: Urine 1050 850 Stool 0 0 Other: Voiding Method Bedside Commode Bedside Commode Urinal Urinal # Voids 3 3 1 # Bowel Movements 1 1 - Exam PHYSICAL EXAMINATION: GENERAL: The patient is alert and oriented x3, not in any acute distress. Well developed, well nourished. HEENT: Pupils are round and equally reacting to light. EOMI. No scleral icterus. No conjunctival pallor. Normocephalic, atraumatic. No pharyngeal erythema. No thyromegaly. CARDIOVASCULAR: S1 and S2 present. No murmurs, rubs, or gallops. PULMONARY: Chest is clear to auscultation, no wheezing or crackles. ABDOMEN: Soft, nontender, nondistended, normoactive bowel sounds. No palpable organomegaly. MUSCULOSKELETAL: No joint swelling or deformity. EXTREMITIES: No cyanosis, clubbing, patient does have pedal edema. NEUROLOGICAL: Gross neurological examination did not reveal any focal deficits. SKIN: No rashes. Note: Because of COVID 19 isolation, some of the history and physical exam findings are indirect and obtained from nursing staff, and other physician examinations to avoid unnecessary contact with the patient. - Labs CBC & Chem 7: 10/03/20 06:53 10/07/20 05:46 Assessment and Plan Plan: Covid 19 pneumonia Sepsis, present on admission, secondary to above Covid gastroenteritis acute hypoxic respiratory failure secondary to covid 19 Hyperlipidemia GERD History of asthma, without any acute exacerbation History of prostate cancer PTSD History of asbestos exposure DVT prophylaxis: Subcutaneous Lovenox GI Prophylaxis: Ppi Plan: Continue to attempt to wean FiO2 as tolerated. Continue to monitor blood sugars and titrate medications accordingly. Pulmonary following. Encourage the patient to increase activity as tolerated and continue with incentive spirometer. Further recommendations to follow based on the clinical course.
[2020-10-10] MEDS: INSULIN DETEMIR (LEVEMIR) 100 UNIT/ML SYR SQ SCH (21:45)
[2020-10-10] MEDS: MELATONIN 5 MG TABLET PO SCH (21:46)
[2020-10-10] MEDS: traZODone HCL 50 MG TAB PO PRN (22:06)
[2020-10-11] MEDS: amLODIPine 5 MG TAB PO SCH (08:30)
[2020-10-11] MEDS: methylPREDNISolone SOD SUCCI 40 MG/ML 1 ML VIAL IV SCH ×3 (08:30→23:30)
[2020-10-11] MEDS: FAMOTIDINE 20 MG TAB PO SCH (08:30)
[2020-10-11] MEDS: ZINC SULFATE 220 MG CAP PO SCH (08:30)
[2020-10-11] MEDS: ASCORBIC ACID 500 MG TAB PO SCH (08:30)
[2020-10-11] MEDS: CHOLECALCIFEROL 400 UNIT TAB PO SCH (08:30)
[2020-10-11] MEDS: ATORVASTATIN 80 MG TAB PO SCH (08:30)
[2020-10-11] MEDS: FUROSEMIDE 10 MG/ML 4 ML VIAL IV SCH (08:30)
[2020-10-11] MEDS: BENZONATATE 100 MG CAP PO SCH ×3 (08:30→21:54)
[2020-10-11] MEDS: buPROPion 75 MG TAB PO SCH (08:30)
[2020-10-11] MEDS: ENOXAPARIN 60 MG/0.6 ML SYRINGE SQ SCH ×2 (08:31→21:53)
[2020-10-11] MEDS: guaiFENesin-Coden 100-10MG/5ML 10 ML CUP PO PRN (08:38)
[2020-10-11] MEDS: ALPRAZolam 0.25 MG TAB PO PRN (08:38)
[2020-10-11] MEDS: INSULIN ASPART (NovoLOG) 100 UNIT/ML VIAL SQ SCH ×7 (08:45→21:54)
[2020-10-11] MEDS: ALBUTEROL HFA INHALER INHALATION SCH ×4 (09:30→20:37)
[2020-10-11] MEDS: SYMBICORT 160-4.5 MCG INHALER INHALATION SCH ×2 (09:30→20:37)
[2020-10-11 09:32] LABS: Glucose,Whole Blood 197 mg/dL (75-99)
[2020-10-11 09:33] LABS: Glucose,Whole Blood 293 mg/dL (75-99)
[2020-10-11 09:33] LABS: Glucose,Whole Blood 351 mg/dL (75-99)
[2020-10-11 09:34] LABS: Glucose,Whole Blood 154 mg/dL (75-99)
[2020-10-11 09:35] LABS: Glucose,Whole Blood 283 mg/dL (75-99)
[2020-10-11 09:37] LABS: Glucose,Whole Blood 299 mg/dL (75-99)
[2020-10-11 09:37] LABS: Glucose,Whole Blood 166 mg/dL (75-99)
[2020-10-11 09:38] LABS: Glucose,Whole Blood 262 mg/dL (75-99)
[2020-10-11 09:39] LABS: Glucose,Whole Blood 280 mg/dL (75-99)
[2020-10-11 09:39] LABS: Glucose,Whole Blood 300 mg/dL (75-99)
[2020-10-11 09:40] LABS: Glucose,Whole Blood 225 mg/dL (75-99)
[2020-10-11 09:40] LABS: Glucose,Whole Blood 282 mg/dL (75-99)
[2020-10-11 09:41] LABS: Glucose,Whole Blood 155 mg/dL (75-99)
[2020-10-11 10:55] LABS: Glucose,Whole Blood 301 mg/dL (75-99)
--- NOTE | 2020-10-11 11:25 | P.PN ---
Subjective his is a pleasant 59 years old male with multiple medical problems as below including hyperlipidemia, GERD, asthma, history of prostate cancer, PTSD and history of asthma asbestos exposure. He follows at the [facility]. He presents because of dyspnea and generalized weakness and muscle pain. No coughing or chest pain. Patient had persistent dyspnea despite using his inhalers No abdominal pain or fever, no diarrhea or change in bowel habits. No dysuria. No headache or weakness Vitals are unremarkable and patient is afebrile. He is currently saturating 92% on room air Admission labs showing leukocytosis of 15 K, d-dimer was elevated at 0.97, BMP and liver enzymes are unremarkable. Covid test is positive EKG showing sinus tachycardia at [address]-T changes CTA of the chest, [place]glass pulmonary interstitial pneumonia remained no evidence of pulmonary embolism Was given 1 dose of Solu-Medrol and 1 dose of Zithromax and ceftriaxone 09/17/2020 Patient in mild respiratory distress with significant coughing asking for something to help him, Robitussin ac is been added. He is on 2.5-3 L/m oxygen via nasal cannula Continue with dexamethasone and Lovenox and remdesivir Follow-up chest x-ray and inflammatory markers tomorrow 09/18/2020 Patient is breathing easily, patient is still coughing and not completely resolved. No chest pain. Saturating in the 90s with oxygen 3-5 L/m. Pulmonary team on the case and patient is found closely by Dr. Ocampo, Who ordered inflammatory markers and chest x-ray: Findings consistent with patient's history of pneumonia, progression compared to prior exam .Continue wi th treatment as per recommendation by pulmonary team, is currently on dexamethasone, Lovenox and remdesivir, also on vitamin C and zinc. Antibiotics were stopped by pulmonary team 09/22/2020 Patient was admitted with Covid pneumonia, he is a still on 50 L oxygen via high flow nasal cannula, patient reports some improvement compared to yesterday, he is not in significant respiratory distress, coughing is better controlled. He had 2 loose bowel movement today which is suspicious for Covid gastroenteritis but no abdominal pain or vomiting His d-dimer is slightly elevated at 1.28. Patient currently on vitamin C and zinc Solu-Medrol 60 mg and Lovenox 60 mg twice daily .patient also was placed on insulin 10 units at bedtime for better glucose control (Not home medication ) 09/23/2020 Patient is awake and alert. Sitting on a chair with a breathing machine next to him. Patient with similar respiratory distress as of yesterday. With some bothering cough. A still have diarrhea about twice per day. His oxygen requirements fluctuating between 50-60 L via high flow nasal cannula. Chest x-ray showed stable diffuse bilateral infiltrates. We will check labs and inflammatory markers tomorrow Patient to continue with same treatment O vitamin C, zinc, centimeters 60 mg and Lovenox 60 mg twice daily. 09/24/2020 Patient remains in respiratory distress his breathing feels harder today with Ceasar course coughing. Also he is having 4 bouts of diarrhea through the day. He is a still on 60 L oxygen via high flow nasal cannula Leukocytosis 19 K. BMP stable. Lactate dehydrogenase slightly elevated at 340 as well as C-reactive protein at 1.0. Normal procalcitonin at 0.08 Pulmonary service on the case 09/25/2020 Patient breathing is easier today, and saturating 90% on 50 L via high flow nasal cannula. His still have diarrhea about 4 times per day Sugar is controlled Continue with same treatment as above, vitamin C, zinc, centimeters 60 mg and Lovenox 60 mg twice daily. 09/26/2020 Patient clinically remains the same, one day he had some improvement in oxygen and subsequently later that day and goes up to 60 L, is still suffering from respiratory difficulty and breathing difficulty. His diarrhea is slightly better today. Patient continue on the same treatment with IV Lasix twice daily, Solu-Medrol 60 mg, Lovenox 60 mg twice daily, vitamin C and zinc. Check inflammatory markers and the morning 09/27/2020 Patient today feels breathing easier, his bowel movement is semisolid, he had 2 bowel movements today which were semisolid. His LDH is slightly worse, C-reactive protein was somewhat checked was normal at 0.4 He has been on Solu-Medrol Medrol 60 mg, also Lasix 40 mg twice daily and cefepime twice daily were added to the regimen, besides his other Covid pneumon ia treatment including vitamin C, zinc and Lovenox. History of her on the high side because he is on his steroids and Levemir was increased from 10 to 18 units at bedtime check chest x-ray, inflammatory markers, pro-calcitonin and labs tomorrow 09/28/2020 Patient states he is not having a good day and his oxygen status has worsened. Patient currently on Airvo with an O2 flow rate of 60 and an FiO2 of 90%. D- dimer today trending down at 0.89. White blood count elevated at 28.5, sodium is 139, potassium is 4.6, current creatinine is 0.9. Blood sugar slightly elevated and will continue sliding scale and long-acting 18 units will be added. Patient is also maintained on IV Lasix and will continue at this time along with IV antibiotics in the form of cefepime, Lovenox, vitamin C and E, and zinc supplements, and IV steroids. Discussed with the patient about using his incentive spirometer at least 10 times every hour while awake and increasing activity as tolerated. Patient has been lying in bed all day today. 09/29/2020 Patient is seen and evaluated and follow-up currently sitting up in the chair still remains on Airvo with oxygen saturation 89-90%. No real improvement from yesterday although feels somewhat less fatigued. Blood sugars continue to be slightly elevated and will continue with current regimen. Patient's diet continues to be poor although he states has improved somewhat. Continue to reeducate the patient on incentive spirometer use and increasing activity as tolerated. Patient continues to be severely dyspneic with exertion. 09/30/2020 Patient is seen today and remains on Airvo with O2 flow rate of 60 and an FiO2 of 80. Patient requesting to attempt to wean FiO2 although patient continues to be extremely dyspneic, tachypneic, and anxious. Will repeat a.m. chest x-ray as patient is not really showing much improvement over the last few days. He is currently maintained on IV cefepime and will continue at this time. Patient's blood sugars have been elevated and adjustments have been made that long acting insulin and will continue with sliding scale as well. White blood count slightly improved at 22.7 today, current sodium is 137, potassium is 5.0, creatinine is 0.7. Patient is afebrile. Patient is tolerating diet although not much of an appetite he states. Patient is urinating and having bowel movements with no difficulties. 10/01/2020 Patient is seen in follow-up today continues to be on the airvo with a flow rate of 60 and FiO2 of 80 and oxygen saturation is 92%. Patient states his breathing feels improved today. Patient is more alert and active today. Chest x-ray today shows stable diffuse bilateral airspace disease. She continues on IV steroids along with IV Lasix, zinc, vitamin C and D and Lovenox. Pulmonary following. Blood sugars continue to be elevated and will adjust long-acting and continue with sliding scale. White blood count continues to trend down and is 17.8. Sodium slightly low at 132, potassium is 5.2, and current creatinine is 0.83. 10/02/2020 Patient is seen today continues to be on Airvo and discussed with respiratory about weaning as tolerated. Current O2 flow rate is 60 with an FiO2 of 80 and patient is 90%. Patient is becoming quite agitated about continuing to be at the hospital. Discussed with the patient about being able to maintain oxygenation off of the high flow prior to discharge. Blood sugars continue to be slightly elevated and will make further adjustments on the long-acting at 25 units daily and will continue sliding scale. Will discontinue IV antibiotics as patient has been on for more than one week. White blood count trending down and is currently 17.8 and will repeat a.m. labs. Continue to encourage to increase activity as tolerated and continue with incentive spirometer use. 10/03/2020 Patient remains on 60 liters of oxygen. 10/04/2020 Patient is presently on 40 L of oxygen patient is comparing of pain in the right knee patient does have severe osteoarthritis patient will be started on Toradol as needed patient is already on Pepcid which will be continued will cut down the steroids. 10/08/2020 Patient remains on 60 L saturations are in low 90s in spite of 60 L patient is hemodynamically stable. Patient completed course of cefepime. Patient has some pedal edema requesting for Lasix patient will be given a dose of Lasix and the compression socks. 10/10/2020 Patient is presently on 35 L of oxygen d-dimer is normal. LDH is minimally e levated 10/11/2020 Patient is an 30 L of oxygen today. Patient is feeling better pedal edema impro jeff Constitutional: Denied any fatigue denied any fever. Cardio vascular: denied any chest pain, palpitations Gastrointestinal denied any nausea vomiting Pulmonary: Denied any shortness of breath cough Neurologic denied any new focal deficits All inpatient medications were reviewed and appropriate changes in these medications as dictated in the interval history and assessment and plan. Objective - Vital Signs Vital signs: Vital Signs Temp 97.9 F 10/11/20 05:27 Pulse 72 10/11/20 08:00 Resp 18 10/11/20 08:00 BP 115/70 10/11/20 05:27 Pulse Ox 90 L 10/11/20 09:30 Intake & Output 10/10/20 10/11/20 10/11/20 18:59 06:59 18:59 Intake Total 1300 Output Total 2450 500 0 Balance -1150 -500 0 Intake: Oral 1300 Output: Urine 2450 500 Stool 0 0 0 Other: Voiding Method Bedside Commode Bedside Commode Bedside Commode Urinal Urinal Urinal # Voids 7 # Bowel Movements 1 - Exam PHYSICAL EXAMINATION: GENERAL: The patient is alert and oriented x3, not in any acute distress. Well developed, well nourished. HEENT: Pupils are round and equally reacting to light. EOMI. No scleral icterus. No conjunctival pallor. Normocephalic, atraumatic. No pharyngeal erythema. No thyromegaly. CARDIOVASCULAR: S1 and S2 present. No murmurs, rubs, or gallops. PULMONARY: Chest is clear to auscultation, no wheezing or crackles. ABDOMEN: Soft, nontender, nondistended, normoactive bowel sounds. No palpable organomegaly. MUSCULOSKELETAL: No joint swelling or deformity. EXTREMITIES: No cyanosis, clubbing, patient does have pedal edema. NEUROLOGICAL: Gross neurological examination did not reveal any focal deficits. SKIN: No rashes. Note: Because of COVID 19 isolation, some of the history and physical exam findings are indirect and obtained from nursing staff, and other physician examinations to avoid unnecessary contact with the patient. - Labs CBC & Chem 7: 10/03/20 06:53 10/07/20 05:46 Labs: Abnormal Lab Results - Last 24 Hours (Table) 10/08/20 10/08/20 10/08/20 Range/Units 07:00 11:19 16:31 POC Glucose (mg/dL) 166 H 299 H 262 H (75-99) mg/dL 10/08/20 10/09/20 10/09/20 Range/Units 20:11 07:40 11:17 POC Glucose (mg/dL) 280 H 197 H 293 H (75-99) mg/dL 10/09/20 10/09/20 10/10/20 Range/Units 16:46 20:35 07:20 POC Glucose (mg/dL) 300 H 351 H 154 H (75-99) mg/dL 10/10/20 10/10/20 10/10/20 Range/Units 12: 17:32 20:01 POC Glucose (mg/dL) 225 H 282 H 283 H (75-99) mg/dL 10/11/20 10/11/20 Range/Units 07:28 10:54 POC Glucose (mg/dL) 155 H 301 H (75-99) mg/dL Assessment and Plan Plan: Covid 19 pneumonia Sepsis, present on admission, secondary to above Covid gastroenteritis acute hypoxic respiratory failure secondary to covid 19 Hyperlipidemia GERD History of asthma, without any acute exacerbation History of prostate cancer PTSD History of asbestos exposure DVT prophylaxis: Subcutaneous Lovenox GI Prophylaxis: Ppi Plan: Continue to attempt to wean FiO2 as tolerated. Continue to monitor blood sugars and titrate medications accordingly. Pulmonary following. Encourage the patient to increase activity as tolerated and continue with incentive spirometer. Further recommendations to follow based on the clinical course.
--- NOTE | 2020-10-11 12:24 | P.PN ---
Subjective Progress Note Date: 10/11/20 Principal diagnosis: CoVID 19 pneumonitis Patient was seen and can today 10/01/2020 in follow-up on the regular medical floor. He is awake and alert in no acute distress. Up ambulating in his room. No worsening shortness of breath, cough or congestion. He is still requiring are both alive flow nasal cannula at 60 L and 80% FiO2 to maintain O2 saturation low 90s. He has completed a course of Remdesivir, received convalescent plasma, remains on Lovenox and IV Solu-Medrol. On IV diuretics. Chest x-ray shows stable diffuse bilateral airspace disease. The patient is seen today 10/02/2020 in follow-up on the regular medical floor. He is currently sitting up in a chair at the bedside. Awake and alert in no acute distress. He remains on AirVo high flow oxygen at 60 L and 80% FiO2 to maintain O2 saturation in the low 90s. States he is feeling better today. A bit frustrated of the duration of his illness. This is day number 17. He remains on bronchodilators, IV Solu-Medrol, empiric antibiotics, IV diuretics, vitamin supplements. Anticoagulated with Lovenox. The patient is seen today 10/03/2020 in follow-up on the regular medical floor. He is awake and alert in no acute distress. Up in a chair at the bedside. Continued on airflow high flow oxygen at 60 L and 80% FiO2 with O2 saturation 92%. Lungs continue to have crackles in the bilateral posterior bases. He has completed his course of Remdesivir. He is receiving a second unit of convalescent plasma. He remains on Lovenox, IV Solu-Medrol, IV diuretics, Symbicort, albuterol. Blood and sputum cultures reveal no growth. White count 19.6. Hemoglobin 15.6. Lymphocytes 0.3. Chest x-ray shows some slight improvement in the bilateral peripheral CoVID pneumonia. The patient is seen today 10/04/2020 in follow-up on the regular medical floor. He is currently sitting up in a chair at the bedside. Awake and alert in no acute distress. Breathing a bit easier today compared to yesterday. No worsening shortness of breath, cough or congestion. Remains on airflow at 60 L and 80% FiO2. Current saturation 92%. He is afebrile. He remains on Lovenox, IV Solu-Medrol, IV diuretics, Symbicort, albuterol. He has completed a course of Remdesivir. He has received 2 units of convalescent plasma. The patient is seen today 10/09/2020 in follow-up on the regular medical floor. He is awake and alert in no acute distress. Sitting up in a chair at the bedside. He is continued on the AirVo high flow oxygen device at 60 L and down to 39% FiO2. He is feeling better. Blood short of breath. Less cough and congestion. D-dimer 0.41. LDH 434. C-reactive protein less than 0.4. He rem ains on IV Solu-Medrol, IV diuretics, Lovenox, vitamin supplements. The patient is seen today 10/10/2020 in follow-up on the regular medical floor. Sitting up in a chair at the bedside. Awake and alert in no acute distress. He is continuing to maintain good O2 saturations in the 90s on AirVo at 50 L and 32% FiO2. He remains afebrile. Hemodynamically stable. D-dimer 0.38. He remains on Lovenox, IV diuretics, IV Solu-Medrol, bronchodilators, vitamin supplements. The patient is seen today 10/11/2020 in follow-up on the regular medical floor. He is currently sitting up in a chair at the bedside. Awake and alert in no acute distress. His oxygen general requirements continued to improve. He is down to 35 L and 30% FiO2 on the AirVo. D-dimer 0.38. Blood glucose 155. He remains on Lovenox, IV diuretics, IV Solu-Medrol, bronchodilators, vitamin supplements. Objective - Vital Signs Vital signs: Vital Signs Temp 97.9 F 10/11/20 11:00 Pulse 89 10/11/20 11:00 Resp 22 10/11/20 11:00 BP 121/84 10/11/20 11:00 Pulse Ox 87 L 10/11/20 11:00 Intake & Output 10/10/20 10/11/20 10/11/20 18:59 06:59 18:59 Intake Total 1300 Output Total 2450 500 0 Balance -1150 -500 0 Intake: Oral 1300 Output: Urine 2450 500 Stool 0 0 0 Other: Voiding Method Bedside Commode Bedside Commode Bedside Commode Urinal Urinal Urinal # Voids 7 # Bowel Movements 1 - Exam GENERAL EXAM: Alert, obese, 59-year-old gentleman, remains on AirVo high flow oxygen at 30 L and 30% FiO2, comfortable in no apparent distress. HEAD: Normocephalic. EYES: Normal reaction of pupils, equal size. NOSE: Clear with pink turbinates. THROAT: No erythema or exudates. NECK: No masses, no JVD. CHEST: No chest wall deformity. LUNGS: Equal air entry with bilateral scattered rhonchi, crackles in the posterior bases. CVS: S1 and S2 normal with no audible murmur, regular rhythm. ABDOMEN: No hepatosplenomegaly, normal bowel sounds, no guarding or rigidity. SPINE: No scoliosis or deformity SKIN: No rashes CENTRAL NERVOUS SYSTEM: No focal deficits, tone is normal in all 4 extremities. EXTREMITIES: There is trace peripheral edema. No clubbing, no cyanosis. Peripheral pulses are intact. - Labs CBC & Chem 7: 10/03/20 06:53 10/07/20 05:46 Labs: Abnormal Lab Results - Last 24 Hours (Table) 10/08/20 10/08/20 10/08/20 Range/Units 07:00 11:19 16:31 POC Glucose (mg/dL) 166 H 299 H 262 H (75-99) mg/dL 10/08/20 10/09/20 10/09/20 Range/Units 20:11 07:40 11:17 POC Glucose (mg/dL) 280 H 197 H 293 H (75-99) mg/dL 10/09/20 10/09/20 10/10/20 Range/Units 16:46 20:35 07:20 POC Glucose (mg/dL) 300 H 351 H 154 H (75-99) mg/dL 10/10/20 10/10/20 10/10/20 Range/Units 12:26 17:32 20:01 POC Glucose (mg/dL) 225 H 282 H 283 H (75-99) mg/dL 10/11/20 10/11/20 Range/Units 07:28 10:54 POC Glucose (mg/dL) 155 H 301 H (75-99) mg/dL Assessment and Plan Assessment: 1 Acute hypoxic respiratory failure secondary to acute CoVID 19 pneumonitis, currently on AirVo 30 L and 30% FiO2. Completed Remdesivir, received convalescent plasma x 2. Remains on Lovenox, IV Solu-Medrol, IV diuretics, bronchodilators and vitamin supplements. 2 History of asthma, currently inactive. On Symbicort and albuterol 3 History of prostate cancer status post prostatectomy 4 Obesity 5 Lifelong nonsmoker 6 Hyperlipidemia 7 History of gastric esophageal reflux disease 8 History of asbestos 6 exposure while in the Plan: The patient was seen and evaluated by Dr. Ocampo Discontinue the AirVo and switch to nasal cannula if tolerated Titrate down the FiO2 as tolerated Increase his activity as tolerated We'll continue to follow I, the cosigning physician, performed a history & physical examination of the patient. Lungs sounds with few scattered rhonchi, crackles in the bilateral posterior bases. Maintaining good O2 saturations in the 90s on AirVo high flow at 30 L and 30% FiO2. I discussed the assessment and plan of care with my nurse practitioner, Pauly Grayson. I attest to the above note as dictated by her.
[2020-10-11 17:23] LABS: Glucose,Whole Blood 299 mg/dL (75-99)
[2020-10-11 20:01] LABS: Glucose,Whole Blood 379 mg/dL (75-99)
[2020-10-11] MEDS: traZODone HCL 50 MG TAB PO PRN (21:54)
[2020-10-11] MEDS: INSULIN DETEMIR (LEVEMIR) 100 UNIT/ML SYR SQ SCH (21:54)
[2020-10-11] MEDS: MELATONIN 5 MG TABLET PO SCH (21:54)
[2020-10-12 05:59] LABS: Basophils % (A) 0 %; Eosinophils % (A) 0 %; HCT 44.1 % (39.0-53.0); HGB 14.7 gm/dL (13.0-17.5); Lymphocytes # (A) 0.4 k/uL (1.0-4.8); Lymphocytes % (A) 3 %; MCH 29.7 pg (25.0-35.0); MCHC 33.3 g/dL (31.0-37.0); MCV 89.4 fL (80.0-100.0); Mean Platelet Volume 7.5; Monocytes # (A) 0.6 k/uL (0-1.0); Monocytes % (A) 4 %; Neutrophils % (A) 92 %; RBC 4.93 m/uL (4.30-5.90); RDW 13.6 % (11.5-15.5); WBC 15.2 k/uL (3.8-10.6)
[2020-10-12 06:13] LABS: Platelet Count 140 k/uL (150-450)
[2020-10-12 07:14] LABS: Glucose,Whole Blood 220 mg/dL (75-99)
[2020-10-12] MEDS: ALBUTEROL HFA INHALER INHALATION SCH ×4 (08:05→19:32)
[2020-10-12] MEDS: SYMBICORT 160-4.5 MCG INHALER INHALATION SCH ×2 (08:05→19:32)
[2020-10-12] MEDS: INSULIN ASPART (NovoLOG) 100 UNIT/ML VIAL SQ SCH ×7 (08:47→20:42)
[2020-10-12] MEDS: FAMOTIDINE 20 MG TAB PO SCH (08:48)
[2020-10-12] MEDS: methylPREDNISolone SOD SUCCI 40 MG/ML 1 ML VIAL IV SCH ×3 (08:48→23:58)
[2020-10-12] MEDS: ASCORBIC ACID 500 MG TAB PO SCH (08:48)
[2020-10-12] MEDS: BENZONATATE 100 MG CAP PO SCH ×3 (08:48→20:42)
[2020-10-12] MEDS: ZINC SULFATE 220 MG CAP PO SCH (08:48)
[2020-10-12] MEDS: amLODIPine 5 MG TAB PO SCH (08:49)
[2020-10-12] MEDS: FUROSEMIDE 10 MG/ML 4 ML VIAL IV SCH (08:49)
[2020-10-12] MEDS: ATORVASTATIN 80 MG TAB PO SCH (08:49)
[2020-10-12] MEDS: buPROPion 75 MG TAB PO SCH (08:50)
[2020-10-12] MEDS: CHOLECALCIFEROL 400 UNIT TAB PO SCH (08:50)
[2020-10-12] MEDS: ENOXAPARIN 60 MG/0.6 ML SYRINGE SQ SCH (08:51)
[2020-10-12 09:48] LABS: African American GFR (CKD) 120.6 (60.0-200.0); Albumin 3.4 g/dL (3.80-4.90); Albumin/Globulin Ratio 2.13 (1.60-3.17); BUN/Creat Ratio 42.86 Ratio (12.00-20.00); Calcium 8.4 mg/dL (8.7-10.3); Globulin 1.6 g/dL (1.6-3.3); Total Bilirubin 1.3 mg/dL (0.2-1.2)
[2020-10-12 11:06] LABS: Glucose,Whole Blood 317 mg/dL (75-99)
--- NOTE | 2020-10-12 13:46 | P.PN ---
Subjective Progress Note Date: 10/12/20 On 10/12/2020, the patient is sitting up on a chair. He feels well. His oxidation is improved slowly over the past 2 weeks and currently the patient is on oxygen at 6 L per minute nasal cannula with a pulse of 93%. He is afebrile. Hemodynamically stable. He feels slowly improved and he feels less short of breath. The most recent chest x-ray was from 10/09/2028 showed bilateral pulmonary infiltration extensive left more than right with opacities noted without any significant interval change. Nevertheless, despite all this, clinically the patient is improved. As mentioned, his FiO2 has been weaned down and the patient is currently on IV Solu Medrol 40 mg every 8 hours. He remains on zinc sulfate. He remains on vitamin C. He is on Levemir insulin 30 units at bedtime along with NovoLog 7 units with meals plus a sliding scale coverage. He is taking Tessalon Perles for cough. He is on Symbicort as maintenance and Ventolin HFA on a when necessary basis [id number]. His labs indicate a normal renal function, bilirubin of 1.3, AST of 78 with an ALT of 188, his sugars are slightly elevated due to systemic steroid use. His platelet count is at 140. The white cell count is at 15.2. Objective - Vital Signs Vital signs: Vital Signs Temp 98.6 F 10/12/20 11:00 Pulse 109 H 10/12/20 12:03 Resp 18 10/12/20 11:00 BP 164/81 10/12/20 11:00 Pulse Ox 85 L 10/12/20 12:03 Intake & Output 10/11/20 10/12/20 10/12/20 18:59 06:59 18:59 Intake Total 1160 590 Output Total 0 600 1000 Balance 1160 -10 -1000 Intake: Oral 1160 590 Output: Urine 600 1000 Stool 0 0 Other: Voiding Method Bedside Commode Bedside Commode Bedside Commode Urinal Urinal Urinal # Voids 5 5 # Bowel Movements 1 - Exam GENERAL EXAM: Alert, obese, 59-year-old gentleman, currently on 6 L of oxygen by nasal cannula Head exam was generally normal. There was no scleral icterus or corneal arcus. Mucous membranes were moist. THROAT: No erythema or exudates. NECK: No masses, no JVD. CHEST: No chest wall deformity. LUNGS: Equal air entry with bilateral scattered rhonchi, crackles in the posterior bases. CVS: S1 and S2 normal with no audible murmur, regular rhythm. ABDOMEN: No hepatosplenomegaly, normal bowel sounds, no guarding or rigidity. SPINE: No scoliosis or deformity SKIN: No rashes CENTRAL NERVOUS SYSTEM: No focal deficits, tone is normal in all 4 extremities. EXTREMITIES: There is trace peripheral edema. No clubbing, no cyanosis. Peripheral pulses are intact. - Labs CBC & Chem 7: 10/12/20 05:02 10/12/20 05:02 Labs: Abnormal Lab Results - Last 24 Hours (Table) 10/11/20 10/11/20 10/12/20 Range/Units 17:22 19:59 05:02 WBC 15.2 H (3.8-10.6) k/uL Plt Count 140 L D (150-450) k/uL Neutrophils # 14.0 H (1.3-7.7) k/uL Lymphocytes # 0.4 L (1.0-4.8) k/uL Carbon Dioxide (21.6-31.8) mmol/L BUN (9.0-27.0) mg/dL BUN/Creatinine Ratio (12.00-20.00) Ratio Glucose (70-110) mg/dL POC Glucose (mg/dL) 299 H 379 H (75-99) mg/dL Calcium (8.7-10.3) mg/dL Total Bilirubin (0.2-1.2) mg/dL AST (14-35) U/L ALT (10-49) U/L Alkaline Phosphatase (41-126) U/L Total Protein (6.2-8.2) g/dL Albumin (3.80-4.90) g/dL 10/12/20 10/12/20 10/12/20 Range/Units 05:02 07:12 11:04 WBC (3.8-10.6) k/uL Plt Count (150-450) k/uL Neutrophils # (1.3-7.7) k/uL Lymphocytes # (1.0-4.8) k/uL Carbon Dioxide 33.0 H (21.6-31.8) mmol/L BUN 30.0 H (9.0-27.0) mg/dL BUN/Creatinine Ratio 42.86 H (12.00-20.00) Ratio Glucose 183 H (70-110) mg/dL POC Glucose (mg/dL) 220 H 317 H (75-99) mg/dL Calcium 8.4 L (8.7-10.3) mg/dL Total Bilirubin 1.3 H (0.2-1.2) mg/dL AST 38 H (14-35) U/L ALT 188 H (10-49) U/L Alkaline Phosphatase 143 H (41-126) U/L Total Protein 5.0 L (6.2-8.2) g/dL Albumin 3.40 L (3.80-4.90) g/dL Assessment and Plan Plan: 1 Acute hypoxic respiratory failure secondary to acute CoVID 19 pneumonitis, currently A the patient has been weaned from being on airVo to oxygen by nasal cannula at 6 L. Chest x-ray from few days back showed persistent but the pulmonary infiltrates and opacities left more than right. Clinically the patient is improving on IV Solu-Medrol. 2 History of asthma, currently inactive secondary to above 3 History of prostate cancer status post prostatectomy 4 Obesity 5 Lifelong nonsmoker 6 Hyperlipidemia 7 History of gastric esophageal reflux disease 8 History of asbestos exposure while in the 9 lower extremity edema, currently on IV Lasix 10 steroid-induced hyperglycemia, currently on Levemir insulin in addition to NovoLog and sliding scale coverage. Plan: AirVo high fl has been discontinued and the patient was switched to 6 liters of oxygen by nasal cannula. Completed convalescent plasma Remains on high-dose IV Solu-Medrol Lovenox for DVT prophylaxis. ConLasix and switch her to oral 40 mg by mouth daily. The patient has been negative fluid balance. We'll continue to follow closely and make further recommendations based on his clinical status We'll continue to follow
--- NOTE | 2020-10-12 14:40 | P.PN ---
Subjective Progress Note Date: 10/12/20 This is a pleasant 59 years old male with multiple medical problems as below including hyperlipidemia, GERD, asthma, history of prostate cancer, PTSD and history of asthma asbestos exposure. He follows at the [facility]. He presents because of dyspnea and generalized weakness and muscle pain. No coughing or chest pain. Patient had persistent dyspnea despite using his inhalers No abdominal pain or fever, no diarrhea or change in bowel habits. No dysuria. No headache or weakness Vitals are unremarkable and patient is afebrile. He is currently saturating 92% on room air Admission labs showing leukocytosis of 15 K, d-dimer was elevated at 0.97, BMP and liver enzymes are unremarkable. Covid test is positive EKG showing sinus tachycardia at [address]-T changes CTA of the chest, [place] pulmonary interstitial pneumonia remained no evidence of pulmonary embolism Was given 1 dose of Solu-Medrol and 1 dose of Zithromax and ceftriaxone 09/17/2020 Patient in mild respiratory distress with significant coughing asking for something to help him, Robitussin ac is been added. He is on 2.5-3 L/m oxygen via nasal cannula Continue with dexamethasone and Lovenox and remdesivir Follow-up chest x-ray and inflammatory markers tomorrow 09/18/2020 Patient is breathing easily, patient is still coughing and not completely resolved. No chest pain. Saturating in the 90s with oxygen 3-5 L/m. Pulmonary team on the case and patient is found closely by Dr. Ocampo, Who ordered inflammatory markers and chest x-ray: Findings consistent with patient's history of pneumonia, progression compared to prior exam .Continue with treatment as per recommendation by pulmonary team, is currently on dexamethasone, Lovenox and remdesivir, also on vitamin C and zinc. Antibiotics were stopped by pulmonary team 09/22/2020 Patient was admitted with Covid pneumonia, he is a still on 50 L oxygen via high flow nasal cannula, patient reports some improvement compared to yesterday, he is not in significant respiratory distress, coughing is better controlled. He had 2 loose bowel movement today which is suspicious for Covid gastroenteritis but no abdominal pain or vomiting His d-dimer is slightly elevated at 1.28. Patient currently on vitamin C and zinc Solu-Medrol 60 mg and Lovenox 60 mg twice daily .patient also was placed on insulin 10 units at bedtime for better glucose control (Not home medication ) 09/23/2020 Patient is awake and alert. Sitting on a chair with a breathing machine next to him. Patient with similar respiratory distress as of yesterday. With some bothering cough. A still have diarrhea about twice per day. His oxygen requirements fluctuating between 50-60 L via high flow nasal cannula. Chest x-ray showed stable diffuse bilateral infiltrates. We will check labs and inflammatory markers tomorrow Patient to continue with same treatment O vitamin C, zinc, centimeters 60 mg and Lovenox 60 mg twice daily. 09/24/2020 Patient remains in respiratory distress his breathing feels harder today with Ceasar course coughing. Also he is having 4 bouts of diarrhea through the day. He is a still on 60 L oxygen via high flow nasal cannula Leukocytosis 19 K. BMP stable. Lactate dehydrogenase slightly elevated at 340 as well as C-reactive protein at 1.0. Normal procalcitonin at 0.08 Pulmonary service on the case 09/25/2020 Patient breathing is easier today, and saturating 90% on 50 L via high flow nasal cannula. His still have diarrhea about 4 times per day Sugar is controlled Continue with same treatment as above, vitamin C, zinc, centimeters 60 mg and Lovenox 60 mg twice daily. 09/26/2020 Patient clinically remains the same, one day he had some improvement in oxygen and subsequently later that day and goes up to 60 L, is still suffering from respiratory difficulty and breathing difficulty. His diarrhea is slightly better today. Patient continue on the same treatment with IV Lasix twice daily, Solu-Medrol 60 mg, Lovenox 60 mg twice daily, vitamin C and zinc. Check inflammatory markers and the morning 09/27/2020 Patient today feels breathing easier, his bowel movement is semisolid, he had 2 bowel movements today which were semisolid. His LDH is slightly worse, C-reactive protein was somewhat checked was normal at 0.4 He has been on Solu-Medrol Medrol 60 mg, also Lasix 40 mg twice daily and cefepime twice daily were added to the regimen, besides his other Covid pneumonia treatment including vitamin C, zinc and Lovenox. History of her on the high side because he is on his steroids and Levemir was increased from 10 to 18 units at bedtime check chest x-ray, inflammatory markers, pro-calcitonin and labs tomorrow 09/28/2020 Patient states he is not having a good day and his oxygen status has worsened. Patient currently on Airvo with an O2 flow rate of 60 and an FiO2 of 90%. D- dimer today trending down at 0.89. White blood count elevated at 28.5, sodium is 139, potassium is 4.6, current creatinine is 0.9. Blood sugar slightly elevated and will continue sliding scale and long-acting 18 units will be added. Patient is also maintained on IV Lasix and will continue at this time along with IV antibiotics in the form of cefepime, Lovenox, vitamin C and E, and zinc supplements, and IV steroids. Discussed with the patient about using his incentive spirometer at least 10 times every hour while awake and increasing activity as tolerated. Patient has been lying in bed all day today. 09/29/2020 Patient is seen and evaluated and follow-up currently sitting up in the chair still remains on Airvo with oxygen saturation 89-90%. No real improvement from yesterday although feels somewhat less fatigued. Blood sugars continue to be slightly elevated and will continue with current regimen. Patient's diet contin ues to be poor although he states has improved somewhat. Continue to reeducate the patient on incentive spirometer use and increasing activity as tolerated. Patient continues to be severely dyspneic with exertion. 09/30/2020 Patient is seen today and remains on Airvo with O2 flow rate of 60 and an FiO2 of 80. Patient requesting to attempt to wean FiO2 although patient continues to be extremely dyspneic, tachypneic, and anxious. Will repeat a.m. chest x-ray as patient is not really showing much improvement over the last few days. He is currently maintained on IV cefepime and will continue at this time. Patient's blood sugars have been elevated and adjustments have been made that long acting insulin and will continue with sliding scale as well. White blood count slightly improved at 22.7 today, current sodium is 137, potassium is 5.0, creatinine is 0.7. Patient is afebrile. Patient is tolerating diet although not much of an appetite he states. Patient is urinating and having bowel movements with no difficulties. 10/01/2020 Patient is seen in follow-up today continues to be on the airvo with a flow rate of 60 and FiO2 of 80 and oxygen saturation is 92%. Patient states his breathing feels improved today. Patient is more alert and active today. Chest x-ray today shows stable diffuse bilateral airspace disease. She continues on IV steroids along with IV Lasix, zinc, vitamin C and D and Lovenox. Pulmonary following. Blood sugars continue to be elevated and will adjust long-acting and continue with sliding scale. White blood count continues to trend down and is 1 7.8. Sodium slightly low at 132, potassium is 5.2, and current creatinine is 0.83. 10/02/2020 Patient is seen today continues to be on Airvo and discussed with respiratory about weaning as tolerated. Current O2 flow rate is 60 with an FiO2 of 80 and patient is 90%. Patient is becoming quite agitated about continuing to be at the hospital. Discussed with the patient about being able to maintain oxygenation off of the high flow prior to discharge. Blood sugars continue to be slightly elevated and will make further adjustments on the long-acting at 25 units daily and will continue sliding scale. Will discontinue IV antibiotics as patient has been on for more than one week. White blood count trending down and is currently 17.8 and will repeat a.m. labs. Continue to encourage to increase activity as tolerated and continue with incentive spirometer use. 10/03/2020 Patient remains on 60 liters of oxygen. 10/04/2020 Patient is presently on 40 L of oxygen patient is comparing of pain in the right knee patient does have severe osteoarthritis patient will be started on Toradol as needed patient is already on Pepcid which will be continued will cut down the steroids. 10/08/2020 Patient remains on 60 L saturations are in low 90s in spite of 60 L patient is hemodynamically stable. Patient completed course of cefepime. Patient has some pedal edema requesting for Lasix patient will be given a dose of Lasix and the compression socks. 10/10/2020 Patient is presently on 35 L of oxygen d-dimer is normal. LDH is minimally elevated 10/11/2020 Patient is an 30 L of oxygen today. Patient is feeling better pedal edema improved 10/12/2020 Patient is seen in follow-up today currently on 6 L of oxygen via nasal cannula and tolerating well. Oxygen saturation is currently 93%. Discussed with the patient about continuing to use the incentive spirometer 10 times every hour while awake and increasing activity as tolerated. Patient states he was up and walk to the sink today although continues to be weak. Will have PT evaluate the patient. Continue to wean FiO2 as tolerated. Lasix being transitioned oral and will continue with steroids and breathing inhalational treatments. Case management also following and aware the patient will probably require oxygen upon discharge. Discussed with the patient about the possibility of discharge if the patient can maintain saturations while on 3-4 L of oxygen via nasal cannula. Patient states he is feeling better today. Constitutional: Denied any fatigue denied any fever. Cardio vascular: denied any chest pain, palpitations Gastrointestinal denied any nausea vomiting Pulmonary: Denied any shortness of breath cough Neurologic denied any new focal deficits All inpatient medications were reviewed and appropriate changes in these medications as dictated in the interval history and assessment and plan. Objective - Vital Signs Vital signs: Vital Signs Temp 97.9 F 10/12/20 05:00 Pulse 72 10/12/20 05:00 Resp 20 10/12/20 05:00 BP 125/70 10/12/20 05:00 Pulse Ox 89 L 10/12/20 05:00 Intake & Output 10/11/20 10/12/20 10/12/20 18:59 06:59 18:59 Intake Total 1160 590 Output Total 0 600 Balance 1160 -10 Intake: Oral 1160 590 Output: Urine 600 Stool 0 0 Other: Voiding Method Bedside Commode Bedside Commode Urinal Urinal # Voids 5 - Exam GENERAL: The patient is alert and oriented x3, not in any acute distress. Well developed, well nourished. HEENT: Pupils are round and equally reacting to light. EOMI. No scleral icterus. No conjunctival pallor. Normocephalic, atraumatic. No pharyngeal erythema. No thyromegaly. CARDIOVASCULAR: S1 and S2 present. No murmurs, rubs, or gallops. PULMONARY: Chest is clear to auscultation, no wheezing or crackles. ABDOMEN: Soft, nontender, nondistended, normoactive bowel sounds. No palpable organomegaly. MUSCULOSKELETAL: No joint swelling or deformity. EXTREMITIES: No cyanosis, clubbing, patient does have pedal edema. Improved from yesterday NEUROLOGICAL: Gross neurological examination did not reveal any focal deficits. SKIN: No rashes. - Labs CBC & Chem 7: 10/12/20 05:02 10/12/20 05:02 Labs: Abnormal Lab Results - Last 24 Hours (Table) 10/11/20 10/11/20 10/12/20 Range/Units 17:22 19:59 05:02 WBC 15.2 H (3.8-10.6) k/uL Plt Count 140 L D (150-450) k/uL Neutrophils # 14.0 H (1.3-7.7) k/uL Lymphocytes # 0.4 L (1.0-4.8) k/uL Carbon Dioxide (21.6-31.8) mmol/L BUN (9.0-27.0) mg/dL BUN/Creatinine Ratio (12.00-20.00) Ratio Glucose (70-110) mg/dL POC Glucose (mg/dL) 299 H 379 H (75-99) mg/dL Calcium (8.7-10.3) mg/dL Total Bilirubin (0.2-1.2) mg/dL AST (14-35) U/L ALT (10-49) U/L Alkaline Phosphatase (41-126) U/L Total Protein (6.2-8.2) g/dL Albumin (3.80-4.90) g/dL 10/12/20 10/12/20 10/12/20 Range/Units 05:02 07:12 11:04 WBC (3.8-10.6) k/uL Plt Count (150-450) k/uL Neutrophils # (1.3-7.7) k/uL Lymphocytes # (1.0-4.8) k/uL Carbon Dioxide 33.0 H (21.6-31.8) mmol/L BUN 30.0 H (9.0-27.0) mg/dL BUN/Creatinine Ratio 42.86 H (12.00-20.00) Ratio Glucose 183 H (70-110) mg/dL POC Glucose (mg/dL) 220 H 317 H (75-99) mg/dL Calcium 8.4 L (8.7-10.3) mg/dL Total Bilirubin 1.3 H (0.2-1.2) mg/dL AST 38 H (14-35) U/L ALT 188 H (10-49) U/L Alkaline Phosphatase 143 H (41-126) U/L Total Protein 5.0 L (6.2-8.2) g/dL Albumin 3.40 L (3.80-4.90) g/dL Assessment and Plan Assessment: Covid 19 pneumonia Sepsis, present on admission, secondary to above Covid gastroenteritis acute hypoxic respiratory failure secondary to covid 19 Hyperlipidemia GERD History of asthma, without any acute exacerbation History of prostate cancer PTSD History of asbestos exposure DVT prophylaxis: Subcutaneous Lovenox GI Prophylaxis: Ppi Plan: Continue to attempt to wean FiO2 as tolerated. Currently maintained on 6 L of oxygen via nasal cannula. PT to evaluate the patient as he continues to be weak with gait. Continue to monitor blood sugars and titrate medications accordingly. Pulmonary following. Encourage the patient to increase activity as tolerated and continue with incentive spirometer. Further recommendations to follow based on the clinical course. Case management also following and making arrangements for possible home oxygen once stabilized and discharged. Patient will need to achieve adequate oxygenation and saturations above 90% while maintained on 3-4 L via nasal cannula for discharge. Discussed with nursing staff about weaning FiO2 as well.
[2020-10-12 16:59] LABS: Glucose,Whole Blood 233 mg/dL (75-99)
[2020-10-12 20:29] LABS: Glucose,Whole Blood 250 mg/dL (75-99)
[2020-10-12] MEDS: INSULIN DETEMIR (LEVEMIR) 100 UNIT/ML SYR SQ SCH (20:42)
[2020-10-12] MEDS: MELATONIN 5 MG TABLET PO SCH (20:42)
[2020-10-13 07:23] LABS: Glucose,Whole Blood 164 mg/dL (75-99)
[2020-10-13] MEDS: INSULIN ASPART (NovoLOG) 100 UNIT/ML VIAL SQ SCH ×6 (08:09→17:19)
[2020-10-13] MEDS: amLODIPine 5 MG TAB PO SCH (08:10)
[2020-10-13] MEDS: BENZONATATE 100 MG CAP PO SCH ×2 (08:10→15:56)
[2020-10-13] MEDS: FAMOTIDINE 20 MG TAB PO SCH (08:10)
[2020-10-13] MEDS: ATORVASTATIN 80 MG TAB PO SCH (08:10)
[2020-10-13] MEDS: ASCORBIC ACID 500 MG TAB PO SCH (08:10)
[2020-10-13] MEDS: ZINC SULFATE 220 MG CAP PO SCH (08:10)
[2020-10-13] MEDS: SYMBICORT 160-4.5 MCG INHALER INHALATION SCH ×2 (08:11→19:48)
[2020-10-13] MEDS: ALBUTEROL HFA INHALER INHALATION SCH ×4 (08:11→19:48)
[2020-10-13] MEDS: methylPREDNISolone SOD SUCCI 40 MG/ML 1 ML VIAL IV SCH (08:11)
[2020-10-13] MEDS: CHOLECALCIFEROL 400 UNIT TAB PO SCH (08:11)
[2020-10-13] MEDS ORDERED: FUROSEMIDE 40 MG TAB PO SCH (09:00)
[2020-10-13] MEDS ORDERED: ENOXAPARIN 40 MG/0.4 ML SYRINGE SQ SCH (09:00)
[2020-10-13] MEDS: buPROPion 75 MG TAB PO SCH (09:46)
[2020-10-13 11:41] LABS: Glucose,Whole Blood 222 mg/dL (75-99)
--- NOTE | 2020-10-13 11:49 | P.PN ---
Subjective Progress Note Date: 10/13/20 10/13/2020 the patient remains on 3 L of oxygen by nasal cannula. As mentioned yesterday, the patient improved and he was taken off the high flow oxygen recently. He is feeling well. He is sitting up on a recliner. No new complaints since yesterday. He remains on IV Solu-Medrol. 40 mg every 8 hours. He remains on zinc sulfate. He remains on vitamin C. He is on Levemir insulin 30 units at bedtime along with NovoLog 7 units with meals plus a sliding scale coverage. He is taking Tessalon Perles for cough. He is on Symbicort as maintenance and Ventolin HFA on a when necessary basis [id number]. He is tolerating his meals. No nausea. No vomiting. No diarrhea. Ongoing swelling in lower extremities bilaterally. Objective - Vital Signs Vital signs: Vital Signs Temp 98 F 10/13/20 05:00 Pulse 73 10/13/20 05:00 Resp 20 10/13/20 05:00 BP 137/85 10/13/20 05:00 Pulse Ox 93 L 10/13/20 05:00 Intake & Output 10/12/20 10/13/20 10/13/20 18:59 06:59 18:59 Output Total 1000 825 0 Balance -1000 -825 0 Output: Urine 1000 825 Stool 0 0 Other: Voiding Method Bedside Commode Bedside Commode Bedside Commode Urinal Urinal Urinal # Voids 5 # Bowel Movements 1 - Exam GENERAL EXAM: Alert, obese, 59-year-old gentleman, currently on 3 L of oxygen by nasal cannula Head exam was generally normal. There was no scleral icterus or corneal arcus. Mucous membranes were moist. THROAT: No erythema or exudates. NECK: No masses, no JVD. CHEST: No chest wall deformity. LUNGS: Equal air entry with bilateral scattered rhonchi, crackles in the posterior bases. CVS: S1 and S2 normal with no audible murmur, regular rhythm. ABDOMEN: No hepatosplenomegaly, normal bowel sounds, no guarding or rigidity. SPINE: No scoliosis or deformity SKIN: No rashes CENTRAL NERVOUS SYSTEM: No focal deficits, tone is normal in all 4 extremities. EXTREMITIES: There is trace peripheral edema. No clubbing, no cyanosis. Peripheral pulses are intact. - Labs CBC & Chem 7: 10/12/20 05:02 10/12/20 05:02 Labs: Abnormal Lab Results - Last 24 Hours (Table) 10/12/20 10/12/20 10/13/20 Range/Units 16:58 20:23 07:21 POC Glucose (mg/dL) 233 H 250 H 164 H (75-99) mg/dL 10/13/20 Range/Units 11:40 POC Glucose (mg/dL) 222 H (75-99) mg/dL Assessment and Plan Plan: 1 Acute hypoxic respiratory failure secondary to acute CoVID 19 pneumonitis, currently A the patient has been weaned from being on airVo to oxygen by nasal cannula at 3-4 L. Clinically the patient is improving on IV Solu-Medrol. 2 History of asthma, currently inactive secondary to above 3 History of prostate cancer status post prostatectomy 4 Obesity 5 Lifelong nonsmoker 6 Hyperlipidemia 7 History of gastric esophageal reflux disease 8 History of asbestos exposure while in the 9 lower extremity edema, currently on IV Lasix 10 steroid-induced hyperglycemia, currently on Levemir insulin in addition to NovoLog and sliding scale coverage. Plan: Continue somewhere between 3 and 4 L patient and keep O2 above 90% Discontinued IV Solu-Medrol Start the patient on prednisone burst taper Switch this patient oral Lasix 40 mg by mouth daily Possible discharge within next 24-48 hours on home oxygen concentrator and outpatient follow-up. Lovenox for DVT prophylaxis. Lasix and switch her to oral 40 mg by mouth daily. The patient has been negative fluid balance. We'll continue to follow closely and make further recommendations based on his clinical status We'll continue to follow
[2020-10-13 11:54] VITALS: BP 150/80; PULSE 83; RESP 17; TEMP 97.4
[2020-10-13] MEDS ORDERED: predniSONE 20 MG TAB PO SCH (12:00)
--- NOTE | 2020-10-13 23:23 | P.DS ---
Providers Date of admission: 09/15/20 20:11 Expected date of discharge: 10/13/20 Attending physician: Alden Benoit Consults: 09/16/20 08:27 Consult Physician Urgent Consulting Provider: Marlon Ocampo Reason/Comments: Covid pneumonia Do you want consulting provider notified?: Yes Primary care physician: [facility] Hospital Course: Final diagnosis Covid 19 pneumonia Sepsis, present on admission, secondary to above Covid gastroenteritis elevated blood glucose levels likely due to steroid use acute hypoxic respiratory failure secondary to covid 19 Hyperlipidemia GERD History of asthma, without any acute exacerbation History of prostate cancer PTSD History of asbestos exposure DVT prophylaxis: Subcutaneous Lovenox GI Prophylaxis Discharge disposition Patient is being discharged in a stable condition with guarded prognosis to home. Patient will follow-up with [facility] in the outpatient setting upon discharge. Patient will continue on home oxygen at 4 liters via NC due to Covid 19 pneumonia. Patient also instructed to follow-up outpatient with Dr. Finch in one week. Total time taken is greater than 35 minutes. History of present illness This is a 59-year-old male who was recently admitted with shortness of breath, generalized weakness and was found to be Covid 19 positive and was being closely monitored. CT of the chest was negative for PE. D-dimer and inflammatory markers were elevated. Patient was placed on antibiotics. Patient completed course of IV antibiotics in the form of Cefepime for over 10 days and was discontinued. Patient also completed the course of Remdesivir and was maintained on IV steroids along with zinc, vitamin c and d, lovenox. Patient blood sugars continued to be elevated with no known history of diabetes mellitus which was possibly due to steroid use. Patient will complete a prednisone taper and is maintained on 4 liters of 02 via NC and will continue this upon discharge. Patient respiratory status was very slow to respond and remained on high flow and Airvo for quite somroe time during hospitalization. Patient will be following up with pulmonary in one week. Patient will also continue to monitor blood sugars before meals and at bed and instructed to keep a diary of readings for primary care follow up. Recommended to have HbA1C drawn in the outpatient setting. Patient will continue with Levemir 30 units daily upon discharge. Glucometer provided and patient instructed to follow up with primary care provider to discuss continuing insulin. Patient will need to follow-up outpatient at the [facility] Currently no reports of chest pain, worsening shortness of breath, or palpitations. Patient is afebrile. No reports of nausea or vomiting and patient is tolerating diet. Patient will be going home today. On exam vital signs are stable. Temp is 97.4 F, pulse is 83, respirations are 17, blood pressure is 150/80, oxygen saturation is 92 % on 4 liters via NC. Cardio S1, S2 are muffled. Respiratory system shows diminished breath sounds at the bases with no wheezing or rhonchi noted. Abdomen is soft and nontender. Nervous system shows no focal deficits. Please refer to medication reconciliation sheet for a list of medications. Patient Condition at Discharge: Stable Plan - Discharge Summary Discharge Rx Participant: No New Discharge Prescriptions: New Insulin Detemir (Levemir) [Levemir] 30 unit SQ HS 30 Days #4 syr amLODIPine [Norvasc] 5 mg PO DAILY 30 Days #30 tab Zinc Sulfate [Orazinc] 220 mg PO DAILY 30 Days #30 cap Famotidine [Pepcid] 40 mg PO DAILY 30 Days #30 tab predniSONE 10 mg PO DIRECTED #30 tab Budesonide-Formot 160-4.5 Mcg [Symbicort 160-4.5 Mcg Inhaler] 2 puff INHALATION RT-BID 30 Days #1 puff Benzonatate [Tessalon Perles] 200 mg PO TID PRN #15 cap PRN Reason: Cough Acetaminophen Tab [Tylenol] 650 mg PO Q4HR PRN tab PRN Reason: Fever And/ Or Pain Albuterol Inhaler [Ventolin Hfa Inhaler] 2 puff INHALATION RT-QID puff Albuterol Inhaler [Ventolin Hfa Inhaler] 2 puff INHALATION RT-QID PRN puff PRN Reason: Shortness Of Breath Or Wheezing Ascorbic Acid [Vitamin C] 1,000 mg PO DAILY 30 Days #60 tab Cholecalciferol [Vitamin D3] 400 unit PO DAILY 30 Days #30 tab Continue buPROPion [Wellbutrin] 150 mg PO DAILY Potassium Chloride ER [K-Dur 10] 10 meq PO DAILY Atorvastatin [Lipitor] 80 mg PO DAILY Changed Furosemide [Lasix] 40 mg PO DAILY 30 Days #60 tab Discharge Medication List Atorvastatin [Lipitor] 80 mg PO DAILY 09/15/20 [History] Potassium Chloride ER [K-Dur 10] 10 meq PO DAILY 09/15/20 [History] buPROPion [Wellbutrin] 150 mg PO DAILY 09/15/20 [History] Acetaminophen Tab [Tylenol] 650 mg PO Q4HR PRN tab 10/13/20 [Rx] Albuterol Inhaler [Ventolin Hfa Inhaler] 2 puff INHALATION RT-QID puff 10/13/20 [Rx] Albuterol Inhaler [Ventolin Hfa Inhaler] 2 puff INHALATION RT-QID PRN puff 10/13/20 [Rx] Ascorbic Acid [Vitamin C] 1,000 mg PO DAILY 30 Days #60 tab 10/13/20 [Rx] Benzonatate [Tessalon Perles] 200 mg PO TID PRN #15 cap 10/13/20 [Rx] Budesonide-Formot 160-4.5 Mcg [Symbicort 160-4.5 Mcg Inhaler] 2 puff INHALATION RT-BID 30 Days #1 puff 10/13/20 [Rx] Cholecalciferol [Vitamin D3] 400 unit PO DAILY 30 Days #30 tab 10/13/20 [Rx] Famotidine [Pepcid] 40 mg PO DAILY 30 Days #30 tab 10/13/20 [Rx] Furosemide [Lasix] 40 mg PO DAILY 30 Days #60 tab 10/13/20 [Rx] Insulin Detemir (Levemir) [Levemir] 30 unit SQ HS 30 Days #4 syr 10/13/20 [Rx] Zinc Sulfate [Orazinc] 220 mg PO DAILY 30 Days #30 cap 10/13/20 [Rx] amLODIPine [Norvasc] 5 mg PO DAILY 30 Days #30 tab 10/13/20 [Rx] predniSONE 10 mg PO DIRECTED #30 tab 10/13/20 [Rx] Follow up Appointment(s)/Referral(s): [facility] [NON-STAFF] - As Needed ([facility] of [facility] oxygen and [facility]. Please contact [facility] provider or Meredith with the [facility] for more information ([phone]). Thank you) Ernesto Finch MD [STAFF PHYSICIAN] - 1 Week (Appointment scheduled for 11/13/20 0845 AM.) [facility],Clinic [Primary Care Provider] - 1-2 days (Appointment scheduled for 10/23/20 at 1030 AM. This is a virtual visit, doctor office staff will contact you with instructions prior to your appointment.) Patient Instructions/Handouts: Viral Pneumonia (DC), How to Give an Insulin Injection (DC), Using Oxygen at Home (DC), Pulse Oximetry (DC), Shortness of Breath (DC) Activity/Diet/Wound Care/Special Instructions: Activity Limited until follow-up Continue current diet Follow-up with primary care provider in 1-2 days Obtain pulse oximeter and monitor oxygen saturations Continue with prednisone taper Continue to monitor blood sugars before meals at bedtime and keep a diary for primary care follow-up Continue with long acting insulin 30 units at night until primary care follow-up Encourage fluids and rest Discharge/Stand Alone Forms: Work/School Release Discharge Disposition: HOME SELF-CARE
== END 2020-10-13 17:30 | disposition home or self-care (01) | DRG 871 ==
LOC: EC 17:26 → 4SSUR 20:11 → 6NMEDSUR 23:00
PROVIDERS: ADMIT Hospitalist; ATTEND Hospitalist
PROC: XW033E5 Introduction of Remdesivir Anti-infective into Peripheral Vein, Percutaneous Approach, New Technology Group 5 (ICD-10-PCS; principal; 2020-09-16)
PROC: XW13325 Transfusion of Convalescent Plasma (Nonautologous) into Peripheral Vein, Percutaneous Approach, New Technology Group 5 (ICD-10-PCS; 2020-09-20)
PROC: 5A0955A Assistance with Respiratory Ventilation, Greater than 96 Consecutive Hours, High Flow/Velocity Cannula (ICD-10-PCS; 2020-09-20)
DX: A41.89 Other specified sepsis (principal); J12.89 Other viral pneumonia; J96.01 Acute respiratory failure with hypoxia; U07.1 COVID-19; A08.39 Other viral enteritis; Z68.42 Body mass index [BMI] 45.0-49.9, adult; E66.01 Morbid (severe) obesity due to excess calories; E78.5 Hyperlipidemia, unspecified; F43.10 Post-traumatic stress disorder, unspecified; G47.00 Insomnia, unspecified; I11.9 Hypertensive heart disease without heart failure; J45.909 Unspecified asthma, uncomplicated; K21.9 Gastro-esophageal reflux disease without esophagitis; M19.90 Unspecified osteoarthritis, unspecified site; T38.0X5A Adverse effect of glucocorticoids and synthetic analogues, initial encounter; D72.829 Elevated white blood cell count, unspecified; Z79.899 Other long term (current) drug therapy; Z91.048 Other nonmedicinal substance allergy status; Z87.01 Personal history of pneumonia (recurrent); Z87.820 Personal history of traumatic brain injury; Z87.19 Personal history of other diseases of the digestive system; Z85.46 Personal history of malignant neoplasm of prostate; Z90.79 Acquired absence of other genital organ(s); Z90.49 Acquired absence of other specified parts of digestive tract; Z57.5 Occupational exposure to toxic agents in other industries; Z81.8 Family history of other mental and behavioral disorders; Z82.49 Family history of ischemic heart disease and other diseases of the circulatory system
CPT/HCPCS: 36415; 71045; 71046; 71275; 80048; 80053; 82728; 83605; 83615; 83735; 83880; 84145; 84484; 85025; 85379; 85610; 85730; 86140; 86850; 86900; 86901; 87040; 87070; 87205; 87635; 93005; 94640; 94760; 96365; 96375; 99285

== ENCOUNTER 2020-10-14 09:46 | Inpatient (IN) | payer OTHER, BC ==
[2020-10-14 10:25] LABS: Basophils % (A) 0 %; Eosinophils # (A) 0.5 k/uL (0-0.7); Eosinophils % (A) 3 %; HCT 44.7 % (39.0-53.0); HGB 14.9 gm/dL (13.0-17.5); Lymphocytes # (A) 0.7 k/uL (1.0-4.8); Lymphocytes % (A) 5 %; MCH 29.6 pg (25.0-35.0); MCHC 33.4 g/dL (31.0-37.0); MCV 88.7 fL (80.0-100.0); Mean Platelet Volume 7.3; Monocytes # (A) 0.6 k/uL (0-1.0); Monocytes % (A) 4 %; Neutrophils # (A) 12.1 k/uL (1.3-7.7); Neutrophils % (A) 86 %; Platelet Count 145 k/uL (150-450); RBC 5.04 m/uL (4.30-5.90)
[2020-10-14 10:36] LABS: ALT 235 U/L (4-49); AST 86 U/L (17-59); African American GFR (CKD) >90 (>60 ml/min/1.73 sqM); Albumin 2.9 g/dL (3.5-5.0); Alkaline Phosphatase 154 U/L (38-126); Anion Gap 5 mmol/L; Blood Urea Nitrogen 31 mg/dL (9-20); C Reactive Protein 5.1 mg/L (<10.0); Calcium 8.5 mg/dL (8.4-10.2); Carbon Dioxide 31 mmol/L (22-30); Chloride 100 mmol/L (98-107); Glucose 158 mg/dL (74-99); LDH 1054 U/L (313-618); Non-African American GFR(CKD) >90 (>60 ml/min/1.73 sqM); Potassium 3.7 mmol/L (3.5-5.1); Sodium 136 mmol/L (137-145); Total Bilirubin 2.7 mg/dL (0.2-1.3); Total Protein 5.2 g/dL (6.3-8.2)
[2020-10-14] MEDS ORDERED: DEXAMETHASONE SOD PHOSPHATE 4 MG/ML 1 ML VIAL IV STA (10:37)
[2020-10-14] MEDS ORDERED: cefTRIAXone IN SWFI 1,000 MG/10 ML SYRINGE IVP STA (10:37)
[2020-10-14 10:45] LABS: INR 0.9 (<1.2); Prothrombin Time 9.6 sec (9.0-12.0)
[2020-10-14 10:48] LABS: Partial Thromboplastin Time 19.6 sec (22.0-30.0)
--- NOTE | 2020-10-14 11:06 | XR ---
EXAMINATION TYPE: XR chest 1V portable DATE OF EXAM: 10/14/2020 COMPARISON: Prior chest x-ray 10/09/2020 HISTORY: Suspected Covid pneumonia TECHNIQUE: Single frontal view of the chest is obtained. FINDINGS: Bilateral airspace disease is again noted. Heart is stable. No evident pneumothorax or ple ural effusion. Postop change noted to the left glenoid. There are overlying cardiac leads. IMPRESSION: Findings consistent with pneumonia.
[2020-10-14] MEDS ORDERED: SODIUM CHLORIDE 0.9% 1,000 ML IV ONE (11:09)
[2020-10-14] MEDS ORDERED: SODIUM CHLORIDE 0.9% 500 ML 500 ML IV ONE (11:09)
[2020-10-14] MEDS: SODIUM CHLORIDE 0.9% 1,000 ML IV SCH ×2 (11:33→20:30)
--- NOTE | 2020-10-14 12:00 | ED ---
SOB HPI - General Chief Complaint: Shortness of Breath Stated Complaint: WEAKNESS Time Seen by Provider: 10/14/20 09:50 Source: EMS Mode of arrival: EMS Limitations: no limitations - History of Present Illness Initial Comments: 59yo male presenting for worsening dyspnea and weakness. pt states he was diagnosed and hospitalized one month ago wtih Covid 19 infection. pt states he was discharge home yesterday and was placed on home oxygen, 3L. he states he felt good the day he left the hospital. pt states that today his dyspnea was worsening he states he feels weak and when the oxygen was removed he dropped down to 70%. pt states that he has no chest pain, no chest pressure, no jaw or arm pain. no abdominal pain, nausea, vomiting, diarrhea. pt denies headaches or fevers. Pt states both legs have been swollen for quite some time. patient denies heart failure or CAD history. pt denies pain with deep inspiration. pt states he did fall, and strike his anterior right knee, denies injury to head, neck, hips or back. states he is positive he did not hit head. states he was on levoquin while in the hospital. Remaining ROS (-). - Related Data Home Medications Medication Instructions Recorded Confirmed Atorvastatin [Lipitor] 80 mg PO DAILY 09/15/20 10/14/20 Potassium Chloride ER [K-Dur 10] 10 meq PO DAILY 09/15/20 10/14/20 buPROPion [Wellbutrin] 150 mg PO DAILY 09/15/20 10/14/20 predniSONE See Taper PO DIRECTED 10/14/20 10/14/20 Previous Rx's Medication Instructions Recorded Acetaminophen Tab [Tylenol] 650 mg PO Q4HR PRN tab 10/13/20 Albuterol Inhaler [Ventolin Hfa 2 puff INHALATION RT-QID puff 10/13/20 Inhaler] Ascorbic Acid [Vitamin C] 1,000 mg PO DAILY 30 Days #60 tab 10/13/20 Benzonatate [Tessalon Perles] 200 mg PO TID PRN #15 cap 10/13/20 Budesonide-Formot 160-4.5 Mcg 2 puff INHALATION RT-BID 30 Days 10/13/20 [Symbicort 160-4.5 Mcg Inhaler] #1 puff Cholecalciferol [Vitamin D3] 400 unit PO DAILY 30 Days #30 tab 10/13/20 Famotidine [Pepcid] 40 mg PO DAILY 30 Days #30 tab 10/13/20 Furosemide [Lasix] 40 mg PO DAILY 30 Days #60 tab 10/13/20 Insulin Detemir (Levemir) [Levemir] 30 unit SQ HS 30 Days #4 syr 10/13/20 Zinc Sulfate [Orazinc] 220 mg PO DAILY 30 Days #30 cap 10/13/20 amLODIPine [Norvasc] 5 mg PO DAILY 30 Days #30 tab 10/13/20 Allergies Allergy/AdvReac Type Severity Reaction Status Date / Time adhesive tape Allergy Rash/Hives Verified 10/14/20 10:31 Review of Systems ROS Statement: Those systems with pertinent positive or pertinent negative responses have been documented in the HPI. ROS Other: All systems not noted in ROS Statement are negative. Past Medical History Past Medical History: Asthma, Cancer, GERD/Reflux, Hyperlipidemia, Pneumonia, Prostate Disorder Additional Past Medical History / Comment(s): peripheral edema. 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 History of Any Multi-Drug Resistant Organisms: None Reported Date of last positivie culture/infection: 10/01/17 MDRO Source:: incision Past Surgical History: Appendectomy, Prostate Surgery Additional Past Surgical History / Comment(s): as youth fell on broken glass jar and cut tendons lt writs-had sx to repair.left wrist carpal tunnel release, , left shoulder rotator reconstruction and has a pin in place, cystectomy tailbone, open abdominal surgery to remove prsotate Past Anesthesia/Blood Transfusion Reactions: No Reported Reaction Past Psychological History: PTSD Smoking Status: Never smoker Past Alcohol Use History: None Reported Past Drug Use History: None Reported - Past Family History Father Family Medical History: Congestive Heart Failure (CHF), Hypertension Mother Family Medical History: Cancer Additional Family Medical History / Comment(s): depression General Exam - General Exam Comments Initial Comments: General: The patient is awake and alert, in no distress Eye: Pupils are equal, round and reactive to light, extra-ocular movements are intact. No nystagmus. There is normal conjunctiva bilaterally. No signs of icterus. Ears, nose, mouth and throat: There are moist mucous membranes and no oral lesions. Neck: The neck is supple, there is no tenderness or JVD. Cardiovascular: There is a regular rate and rhythm. No murmur, rub or gallop is appreciated. Respiratory: Respirations are mildly labored, breath sounds are equal. No wheezes, stridor. Some diffuse rhonchi/rales noted. Gastrointestinal: Soft, non-distended, non-tender abdomen without masses or organomegaly noted. There is no rebound or guarding present. Musculoskeletal: Normal ROM, no tenderness. Strength 5/5. Sensation intact. Pulses equal bilaterally 2+. Neurological: A&O x 3. CN II-XII intact grossly, There are no obvious motor or sensory deficits. Coordination appears grossly intact. Speech is normal. Skin: Skin is warm and dry and no rashes or lesions are noted. Bilateral LE edema. Psychiatric: Cooperative, appropriate mood & affect, normal judgment. Limitations: no limitations Course Vital Signs 10/14/20 10/14/20 10/14/20 09:53 10:10 10:30 Temperature 98.4 F Pulse Rate 77 97 Respiratory 24 20 21 Rate Blood Pressure 150/80 119/79 119/79 O2 Sat by Pulse 93 L 92 L 92 L Oximetry 10/14/20 10/14/20 10/14/20 11:00 11:30 12:00 Temperature Pulse Rate 86 94 Respiratory 20 21 20 Rate Blood Pressure 119/79 148/81 O2 Sat by Pulse 90 L 92 L Oximetry 10/14/20 10/14/20 12:30 13:00 Temperature Pulse Rate 94 Respiratory 22 24 Rate Blood Pressure 109/82 125/83 O2 Sat by Pulse 95 Oximetry Medical Decision Making - Medical Decision Making Leukocytosis continues to trend down. Patient does have lactic acidosis. Pt to dehydrogenase is increasing. Patient does have increase in troponin from baseline. He does not endorse any symptoms concerning for acute coronary syndrome such as chest pressure jaw or arm pain nausea. EKG which was reviewed by my attending provider reveals no ST elevation or depression. It is sinus tachycardia. Patient has recently been on Lovenox. CTA will be obtained to r/o PE despite anticoagulation given worsening hypoxia and increasing troponin. I discussed case with Dr. Benoit prior to CTA being obtained--he is aware study is pending and evaluated patient in ER. Dr. Hernandez is agreeable to care plan and admission. - Lab Data Result diagrams: 10/14/20 10:11 10/14/20 10:11 Lab Results 10/14/20 10/14/20 10/14/20 Range/Units 10:11 10:11 10:11 WBC 14.0 H (3.8-10.6) k/uL RBC 5.04 (4.30-5.90) m/uL Hgb 14.9 (13.0-17.5) gm/dL Hct 44.7 (39.0-53.0) % MCV 88.7 (80.0-100.0) fL MCH 29.6 (25.0-35.0) pg MCHC 33.4 (31.0-37.0) g/dL RDW 14.0 (11.5-15.5) % Plt Count 145 L (150-450) k/uL MPV 7.3 Neutrophils % 86 % Lymphocytes % 5 % Monocytes % 4 % Eosinophils % 3 % Basophils % 0 % Neutrophils # 12.1 H (1.3-7.7) k/uL Lymphocytes # 0.7 L (1.0-4.8) k/uL Monocytes # 0.6 (0-1.0) k/uL Eosinophils # 0.5 (0-0.7) k/uL Basophils # 0.0 (0-0.2) k/uL PT 9.6 (9.0-12.0) sec INR 0.9 (<1.2) APTT 19.6 L (22.0-30.0) sec D-Dimer 0.57 (<0.60) mg/L FEU Sodium 136 L (137-145) mmol/L Potassium 3.7 (3.5-5.1) mmol/L Chloride 100 (98-107) mmol/L Carbon Dioxide 31 H (22-30) mmol/L Anion Gap 5 mmol/L BUN 31 H (9-20) mg/dL Creatinine 0.70 (0.66-1.25) mg/dL Est GFR (CKD-EPI)AfAm >90 (>60 ml/min/1.73 sqM) Est GFR (CKD-EPI)NonAf >90 (>60 ml/min/1.73 sqM) Glucose 158 H (74-99) mg/dL Lactic Ac Sepsis Rflx Plasma Lactic Acid Guru (0.7-2.0) mmol/L Calcium 8.5 (8.4-10.2) mg/dL Magnesium 2.0 (1.6-2.3) mg/dL Total Bilirubin 2.7 H (0.2-1.3) mg/dL AST 86 H (17-59) U/L ALT 235 H (4-49) U/L Alkaline Phosphatase 154 H (38-126) U/L Lactate Dehydrogenase 1054 H (313-618) U/L Troponin I (0.000-0.034) ng/mL C-Reactive Protein 5.1 (<10.0) mg/L NT-Pro-B Natriuret Pep pg/mL Total Protein 5.2 L (6.3-8.2) g/dL Albumin 2.9 L (3.5-5.0) g/dL 10/14/20 10/14/20 10/14/20 Range/Units 10:11 10:11 10:11 WBC (3.8-10.6) k/uL RBC (4.30-5.90) m/uL Hgb (13.0-17.5) gm/dL Hct (39.0-53.0) % MCV (80.0-100.0) fL MCH (25.0-35.0) pg MCHC (31.0-37.0) g/dL RDW (11.5-15.5) % Plt Count (150-450) k/uL MPV Neutrophils % % Lymphocytes % % Monocytes % % Eosinophils % % Basophils % % Neutrophils # (1.3-7.7) k/uL Lymphocytes # (1.0-4.8) k/uL Monocytes # (0-1.0) k/uL Eosinophils # (0-0.7) k/uL Basophils # (0-0.2) k/uL PT (9.0-12.0) sec INR (<1.2) APTT (22.0-30.0) sec D-Dimer (<0.60) mg/L FEU Sodium (137-145) mmol/L Potassium (3.5-5.1) mmol/L Chloride (98-107) mmol/L Carbon Dioxide (22-30) mmol/L Anion Gap mmol/L BUN (9-20) mg/dL Creatinine (0.66-1.25) mg/dL Est GFR (CKD-EPI)AfAm (>60 ml/min/1.73 sqM) Est GFR (CKD-EPI)NonAf (>60 ml/min/1.73 sqM) Glucose (74-99) mg/dL Lactic Ac Sepsis Rflx Plasma Lactic Acid Guru 3.0 H* (0.7-2.0) mmol/L Calcium (8.4-10.2) mg/dL Magnesium (1.6-2.3) mg/dL Total Bilirubin (0.2-1.3) mg/dL AST (17-59) U/L ALT (4-49) U/L Alkaline Phosphatase (38-126) U/L Lactate Dehydrogenase (313-618) U/L Troponin I 0.046 H* (0.000-0.034) ng/mL C-Reactive Protein (<10.0) mg/L NT-Pro-B Natriuret Pep 311 pg/mL Total Protein (6.3-8.2) g/dL Albumin (3.5-5.0) g/dL 10/14/20 10/14/20 Range/Units 10:34 12:54 WBC (3.8-10.6) k/uL RBC (4.30-5.90) m/uL Hgb (13.0-17.5) gm/dL Hct (39.0-53.0) % MCV (80.0-100.0) fL MCH (25.0-35.0) pg MCHC (31.0-37.0) g/dL RDW (11.5-15.5) % Plt Count (150-450) k/uL MPV Neutrophils % % Lymphocytes % % Monocytes % % Eosinophils % % Basophils % % Neutrophils # (1.3-7.7) k/uL Lymphocytes # (1.0-4.8) k/uL Monocytes # (0-1.0) k/uL Eosinophils # (0-0.7) k/uL Basophils # (0-0.2) k/uL PT (9.0-12.0) sec INR (<1.2) APTT (22.0-30.0) sec D-Dimer (<0.60) mg/L FEU Sodium (137-145) mmol/L Potassium (3.5-5.1) mmol/L Chloride (98-107) mmol/L Carbon Dioxide (22-30) mmol/L Anion Gap mmol/L BUN (9-20) mg/dL Creatinine (0.66-1.25) mg/dL Est GFR (CKD-EPI)AfAm (>60 ml/min/1.73 sqM) Est GFR (CKD-EPI)NonAf (>60 ml/min/1.73 sqM) Glucose (74-99) mg/dL Lactic Ac Sepsis Rflx Y Plasma Lactic Acid Guru 1.9 (0.7-2.0) mmol/L Calcium (8.4-10.2) mg/dL Magnesium (1.6-2.3) mg/dL Total Bilirubin (0.2-1.3) mg/dL AST (17-59) U/L ALT (4-49) U/L Alkaline Phosphatase (38-126) U/L Lactate Dehydrogenase (313-618) U/L Troponin I (0.000-0.034) ng/mL C-Reactive Protein (<10.0) mg/L NT-Pro-B Natriuret Pep pg/mL Total Protein (6.3-8.2) g/dL Albumin (3.5-5.0) g/dL Disposition Clinical Impression: Weakness, COVID-19, Hypoxia, Fall, Right knee pain, Pneumonia Disposition: ADMITTED IP TO THIS [facility] Condition: Serious Is patient prescribed a controlled substance at d/c from ED?: No Referrals: [facility],Clinic [Primary Care Provider] - 1-2 days Time of Disposition: 13:25 Decision to Admit Reason: Admit from EC Decision Date: 10/14/20 Decision Time: 13:25
--- NOTE | 2020-10-14 12:10 | XR ---
EXAMINATION TYPE: XR knee complete RT DATE OF EXAM: 10/14/2020 COMPARISON: 04/07/2018 HISTORY: Fall, pain TECHNIQUE: Three-view right knee FINDINGS: There is mild narrowing of the medial lateral joint spaces. Medial and lateral tibial plate au spurring and medial femoral condylar spurring is present. Posterior patellar spurring is present s uperiorly and inferiorly. No joint effusion is evident. IMPRESSION: 1. No acute osseous abnormality right knee. 2. Mild to moderate degenerative changes of the joint spaces right knee
[2020-10-14] MEDS ORDERED: NALOXONE 0.4 MG/ML 1 ML VIAL IV PRN (13:00)
--- NOTE | 2020-10-14 14:22 | CT ---
CT CHEST FOR PULMONARY EMBOLISM. EXAMINATION TYPE: CT chest angio for PE DATE OF EXAM: 10/14/2020 INDICATION: covid, dyspnea CT DLP: 908.2 mGycm, Automated exposure control for dose reduction was used. CONTRAST: Patient injected with 100 mL of Isovue 370. COMPARISON: 09/15/2020 TECHNIQUE: CT of the chest is performed on a spiral scan at 2 mm thick sections. Study is performed with intravenous contrast timed for evaluation for pulmonary embolism. This will limit additional po rtions of the evaluation. 3-D MIP images reconstructed by the technologist are reviewed on the compu ter in the coronal and sagittal planes. FINDINGS: No persistent filling defects are evident to suggest an acute pulmonary embolism. No mediastinal or hilar adenopathy enlarged by CT criteria is evident. The ascending aorta diameter at the level of the main pulmonary artery is 3.7 cm. The main pulmonary artery diameter at the bifur cation is 2.8 cm. There are scattered infiltrates present bilaterally. These are nonspecific but can be compatible with atypical pneumonia. Pulmonary edema should be considered. Pneumomediastinum is present this extends into the subcutaneous tissues at the neck. No pneumothorax is evident. Tracheobronchial tree as visualized appears normal. Limited CT section through the upper abdomen are unremarkable. IMPRESSIONS: 1. Pneumomediastinum with scattered small amounts of air extending towards the soft tissues of the ne ck. Report was called to emergency room EMILY Yanez by Dr. Velasquez by telephone 1411 hours 10/14/2020. 2. Scattered infiltrates within the periphery of the bilateral lungs worsening from comparison can be compatible with atypical pneumonia.
--- NOTE | 2020-10-14 16:02 | P.CNPUL ---
History of Present Illness Consult date: 10/14/20 Requesting physician: Alden Benoit Reason for consult: dyspnea, abnormal CXR/CT Chief complaint: Fall, weakness, shortness of breath History of present illness: This is a pleasant 59-year-old gentleman with a known history of morbid obesity, mild intermittent chronic bronchial asthma, hyperlipidemia, gastroesophageal reflux disease, asbestos exposure while in the , prostate cancer status post prostatectomy. He had been diagnosed with CoVID 19 pneumonitis and was an inpatient here from September 15 to 10/13/2020. He had a prolonged course requiring high oxygen including airflow and nonrebreather mask. He had received Remdesivir, convalescent plasma, steroids, Lovenox. He subsequently titrated down to 3 L nasal cannula and discharged home yesterday. Earlier this morning the patient had sustained a fall and had difficulty getting himself up. He also was having worsening shortness of breath and a very forceful cough. He developed chest discomfort. EMS was called and he was brought here to the emergency room approximately 9:45 this a.m. He did have some injury to his ri ght knee. No acute fractures noted. Chest x-ray continues to show CoVID 19 pneumonitis with bilateral airspace disease. CT angiogram revealed evidence of pneumomediastinum with scattered small amounts of air extending towards the soft tissues of the neck. Scattered infiltrates within the periphery of the bilateral lungs consistent with atypical pneumonia. He is seen today in consultation on the selective care unit. He is currently sitting up at the bedside. Awake and alert in no acute distress. He is maintaining O2 saturations in the 90s on 5 L high flow nasal cannula. He is afebrile. Hemodynamically stable. White count 14.0. Hemoglobin 14.9. Platelet count 145. Lymphocytes 0.7. D-dimer 0.57. Sodium 136. Potassium 3.7. Creatinine 0.70. LDH 1054. C-reactive protein 5.1. Troponin 0.046. Initial lactic 3.0. Currently 1.9. He is receiving 0.9 normal saline at 75 ML's per hour. Review of Systems REVIEW OF SYSTEMS: CONSTITUTIONAL: Generalized weakness with fall. Denies any recent significant weight loss or weight gain. EYES: Denies change in vision. EARS, NOSE, MOUTH, THROAT: Denies headaches, denies sore throat. CARDIOVASCULAR: Atypical chest pain, no palpitations or syncopal episodes. RESPIRATORY: Positive for shortness of breath, cough, congestion no hemoptysis. GASTROINTESTINAL: Denies change in appetite, denies abdominal pain GENITOURINARY: Denies hematuria, denies infections. MUSKULOSKELETAL: Denies pain, positive for swelling. INTEGUMENTARY: Denies rash, denies eczema. NEUROLOGICAL: Denies recent memory loss, no recent seizure activity. PSYCHIATRIC: Denies anxiety, denies depression. HEMATOLOGIC/LYMPHATIC: Denies anemia, denies enlarged lymph nodes. Past Medical History Past Medical History: Asthma, Cancer, GERD/Reflux, Hyperlipidemia, Pneumonia, Prostate Disorder Additional Past Medical History / Comment(s): peripheral edema. 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 History of Any Multi-Drug Resistant Organisms: None Reported Date of last positivie culture/infection: 10/01/17 MDRO Source:: incision Past Surgical History: Appendectomy, Prostate Surgery Additional Past Surgical History / Comment(s): as youth fell on broken glass jar and cut tendons lt writs-had sx to repair.left wrist carpal tunnel release, , left shoulder rotator reconstruction and has a pin in place, cystectomy tailbone, open abdominal surgery to remove prsotate Past Anesthesia/Blood Transfusion Reactions: No Reported Reaction Past Psychological History: PTSD Additional Psychological History / Comment(s): Pt resides with his spouse and 17 year old son. He is independent. Pt served in the [employer]. Smoking Status: Never smoker Past Alcohol Use History: None Reported Additional Past Alcohol Use History / Comment(s): . Past Drug Use History: None Reported - Past Family History Father Family Medical History: Congestive Heart Failure (CHF), Hypertension Mother Family Medical History: Cancer Additional Family Medical History / Comment(s): depression Medications and Allergies Home Medications Medication Instructions Recorded Confirmed Type Atorvastatin [Lipitor] 80 mg PO DAILY 09/15/20 10/14/20 History Potassium Chloride ER [K-Dur 10] 10 meq PO DAILY 09/15/20 10/14/20 History buPROPion [Wellbutrin] 150 mg PO DAILY 09/15/20 10/14/20 History Acetaminophen Tab [Tylenol] 650 mg PO Q4HR PRN tab 10/13/20 10/14/20 Rx Albuterol Inhaler [Ventolin Hfa 2 puff INHALATION RT-QID puff 10/13/20 10/14/20 Rx Inhaler] Ascorbic Acid [Vitamin C] 1,000 mg PO DAILY 30 Days #60 tab 10/13/20 10/14/20 Rx Benzonatate [Tessalon Perles] 200 mg PO TID PRN #15 cap 10/13/20 10/14/20 Rx Budesonide-Formot 160-4.5 Mcg 2 puff INHALATION RT-BID 30 Days 10/13/20 10/14/20 Rx [Symbicort 160-4.5 Mcg Inhaler] #1 puff Cholecalciferol [Vitamin D3] 400 unit PO DAILY 30 Days #30 tab 10/13/20 10/14/20 Rx Famotidine [Pepcid] 40 mg PO DAILY 30 Days #30 tab 10/13/20 10/14/20 Rx Furosemide [Lasix] 40 mg PO DAILY 30 Days #60 tab 10/13/20 10/14/20 Rx Insulin Detemir (Levemir) [Levemir] 30 unit SQ HS 30 Days #4 syr 10/13/20 10/14/20 Rx Zinc Sulfate [Orazinc] 220 mg PO DAILY 30 Days #30 cap 10/13/20 10/14/20 Rx amLODIPine [Norvasc] 5 mg PO DAILY 30 Days #30 tab 10/13/20 10/14/20 Rx predniSONE See Taper PO DIRECTED 10/14/20 10/14/20 History Allergies Allergy/AdvReac Type Severity Reaction Status Date / Time adhesive tape Allergy Rash/Hives Verified 10/14/20 10:31 Physical Exam Vitals: Vital Signs Temp Pulse Resp BP Pulse Ox 10/14/20 15:26 20 10/14/20 13:30 118/72 10/14/20 13:00 94 24 125/83 10/14/20 12:30 22 109/82 95 10/14/20 12:00 20 148/81 92 L 10/14/20 11:30 94 21 10/14/20 11:00 86 20 119/79 90 L 10/14/20 10:30 21 119/79 92 L 10/14/20 10:10 97 20 119/79 92 L 10/14/20 09:53 98.4 F 77 24 150/80 93 L Intake and Output 10/14/20 10/14/20 10/14/20 06:59 14:59 22:59 Other: Voiding Method Urinal Weight 145.15 kg GENERAL EXAM: Alert, morbidly obese, pleasant 59-year-old gentleman, on 5 L nasal cannula, comfortable in no apparent distress. HEAD: Normocephalic. EYES: Normal reaction of pupils, equal size. NOSE: Clear with pink turbinates. THROAT: No erythema or exudates. NECK: No masses, no JVD. CHEST: No chest wall deformity. LUNGS: Equal air entry with faint crackles in the bilateral posterior bases. CVS: S1 and S2 normal with no audible murmur, regular rhythm. ABDOMEN: No hepatosplenomegaly, normal bowel sounds, no guarding or rigidity. SPINE: No scoliosis or deformity SKIN: No rashes CENTRAL NERVOUS SYSTEM: No focal deficits, tone is normal in all 4 extremities. EXTREMITIES: There is 1-2+ peripheral edema. No clubbing, no cyanosis. Peripheral pulses are intact. Results - Laboratory Findings CBC and BMP: 10/14/20 10:11 10/14/20 10:11 PT/INR, D-dimer PT 9.6 sec (9.0-12.0) 10/14/20 10:11 INR 0.9 (<1.2) 10/14/20 10:11 D-Dimer 0.57 mg/L FEU (<0.60) 10/14/20 10:11 Abnormal lab findings: Abnormal Labs 10/14/20 10/14/20 10/14/20 10:11 10:11 10:11 WBC 14.0 H Plt Count 145 L Neutrophils # 12.1 H Lymphocytes # 0.7 L APTT 19.6 L Sodium 136 L Carbon Dioxide 31 H BUN 31 H Glucose 158 H Plasma Lactic Acid Guru Total Bilirubin 2.7 H AST 86 H ALT 235 H Alkaline Phosphatase 154 H Lactate Dehydrogenase 1054 H Troponin I Total Protein 5.2 L Albumin 2.9 L 10/14/20 10/14/20 10:11 10:11 WBC Plt Count Neutrophils # Lymphocytes # APTT Sodium Carbon Dioxide BUN Glucose Plasma Lactic Acid Guru 3.0 H* Total Bilirubin AST ALT Alkaline Phosphatase Lactate Dehydrogenase Troponin I 0.046 H* Total Protein Albumin - Diagnostic Findings Chest x-ray: image reviewed CT scan - chest: image reviewed Assessment and Plan Assessment: 1 Generalized weakness and fall, unable to get himself up, brought in by EMS this morning. 2 Pneumomediastinum secondary to forceful cough 3 CoVID 19 pneumonia diagnosed 09/15/2020, received Remdesivir, convalescent elvin sma, dexamethasone, Lovenox. Discharged on 10/13/2020 4 Morbid obesity 5 Lifelong nonsmoker 6 History of mild intermittent chronic bronchial asthma 7 Hyperlipidemia 8 Gastroesophageal reflux disease 9 History of asbestos exposure in the 10 Chronic lower extremity edema with changes of chronic venous stasis Plan: The patient was seen and evaluated by Dr. Ocampo CT angiogram, Chest x-ray, labs reviewed No treatment for pneumomediastinum Completed his treatment for CoVID 19 Titrate down the FiO2 as tolerated Lasix 40 mg IVP 1 Repeat chest x-ray in a.m. We will continue to follow and make further recommendations based on his clinical status I, the cosigning physician, performed a history & physical examination of the patient. Lungs sounds with crackles in the bilateral posterior bases. Maintaining good O2 saturations in the 90s on IV liters per minute per nasal cannula. I discussed the assessment and plan of care with my nurse practitioner, Pauly Grayson. I attest to the above consultation as dictated by her. Time with Patient: Greater than 30
--- NOTE | 2020-10-14 16:21 | P.CRDCN ---
History of Present Illness Consult date: 10/14/20 Chief complaint: Shortness of breath History of present illness: This is a 59-year-old gentleman with a past medical history significant for morb id obesity as well as history of asthma and prostate cancer who just was discharged from the hospital yesterday on October 13 after prolonged hospital admission with pneumonia related to COVID-19 infection. The patient was discharged home in stable medical condition. He was at home when he started experiencing extensive cough subsequently he fell. He called ambulance and the patient was brought to the emergency department. He was experiencing chest discomfort and the CTA of the chest revealed pneumomediastinum with a scattered small amount of air extending toward the soft tissue of the neck. We consulted to see the patient mainly because of abnormal troponin. No EKG available at this point but the EKG is in process to be done. Currently the patient is chest pain-free. No history of coronary artery disease or congestive heart failure or cardiac arrhythmia. When the patient was seen by ambulance he was hypoxic. Currently he is on oxygen. When he was seen in the room today he was awake and alert or oriented 3. He is afebrile. Stable hemodynamically. At this point I am going to follow-up with the serial cardiac enzymes. Consider conservative medical management as far as the patient is staying chest pain free. We will obtain a 12 please EKG and continue following up with him. Also I am going to add aspirin to the current medical regimen. I would hold statin at this point in view of the abnormal liver function test. Past Medical History Past Medical History: Asthma, Cancer, GERD/Reflux, Hyperlipidemia, Pneumonia, Prostate Disorder Additional Past Medical History / Comment(s): peripheral edema. 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 History of Any Multi-Drug Resistant Organisms: None Reported Date of last positivie culture/infection: 10/01/17 MDRO Source:: incision Past Surgical History: Appendectomy, Prostate Surgery Additional Past Surgical History / Comment(s): as youth fell on broken glass jar and cut tendons lt writs-had sx to repair.left wrist carpal tunnel release, , left shoulder rotator reconstruction and has a pin in place, cystectomy tailbone, open abdominal surgery to remove prsotate Past Anesthesia/Blood Transfusion Reactions: No Reported Reaction Past Psychological History: PTSD Additional Psychological History / Comment(s): Pt resides with his spouse and 17 year old son. He is independent. Pt served in the [employer]. Smoking Status: Never smoker Past Alcohol Use History: None Reported Additional Past Alcohol Use History / Comment(s): . Past Drug Use History: None Reported - Past Family History Father Family Medical History: Congestive Heart Failure (CHF), Hypertension Mother Family Medical History: Cancer Additional Family Medical History / Comment(s): depression Medications and Allergies Home Medications Medication Instructions Recorded Confirmed Type Atorvastatin [Lipitor] 80 mg PO DAILY 09/15/20 10/14/20 History Potassium Chloride ER [K-Dur 10] 10 meq PO DAILY 09/15/20 10/14/20 History buPROPion [Wellbutrin] 150 mg PO DAILY 09/15/20 10/14/20 History Acetaminophen Tab [Tylenol] 650 mg PO Q4HR PRN tab 10/13/20 10/14/20 Rx Albuterol Inhaler [Ventolin Hfa 2 puff INHALATION RT-QID puff 10/13/20 10/14/20 Rx Inhaler] Ascorbic Acid [Vitamin C] 1,000 mg PO DAILY 30 Days #60 tab 10/13/20 10/14/20 Rx Benzonatate [Tessalon Perles] 200 mg PO TID PRN #15 cap 10/13/20 10/14/20 Rx Budesonide-Formot 160-4.5 Mcg 2 puff INHALATION RT-BID 30 Days 10/13/20 10/14/20 Rx [Symbicort 160-4.5 Mcg Inhaler] #1 puff Cholecalciferol [Vitamin D3] 400 unit PO DAILY 30 Days #30 tab 10/13/20 10/14/20 Rx Famotidine [Pepcid] 40 mg PO DAILY 30 Days #30 tab 10/13/20 10/14/20 Rx Furosemide [Lasix] 40 mg PO DAILY 30 Days #60 tab 10/13/20 10/14/20 Rx Insulin Detemir (Levemir) [Levemir] 30 unit SQ HS 30 Days #4 syr 10/13/20 10/14/20 Rx Zinc Sulfate [Orazinc] 220 mg PO DAILY 30 Days #30 cap 10/13/20 10/14/20 Rx amLODIPine [Norvasc] 5 mg PO DAILY 30 Days #30 tab 10/13/20 10/14/20 Rx predniSONE See Taper PO DIRECTED 10/14/20 10/14/20 History Allergies Allergy/AdvReac Type Severity Reaction Status Date / Time adhesive tape Allergy Rash/Hives Verified 10/14/20 10:31 Physical Exam Vitals: Vital Signs Temp Pulse Resp BP Pulse Ox 10/14/20 15:26 20 10/14/20 13:30 118/72 10/14/20 13:00 94 24 125/83 10/14/20 12:30 22 109/82 95 10/14/20 12:00 20 148/81 92 L 10/14/20 11:30 94 21 10/14/20 11:00 86 20 119/79 90 L 10/14/20 10:30 21 119/79 92 L 10/14/20 10:10 97 20 119/79 92 L 10/14/20 09:53 98.4 F 77 24 150/80 93 L Intake and Output 10/14/20 10/14/20 10/14/20 06:59 14:59 22:59 Other: Voiding Method Urinal Weight 145.15 kg - Constitutional General appearance: no acute distress - Respiratory Respiratory: bilateral: diminished - Cardiovascular Rhythm: regular Heart sounds: normal: S1, S2 Results 10/14/20 10:11 10/14/20 10:11 Cardiac Enzymes 10/14/20 10/14/20 Range/Units 10:11 10:11 AST 86 H (17-59) U/L Lactate Dehydrogenase 1054 H (313-618) U/L Troponin I 0.046 H* (0.000-0.034) ng/mL Coagulation 10/14/20 Range/Units 10:11 PT 9.6 (9.0-12.0) sec APTT 19.6 L (22.0-30.0) sec CBC 10/14/20 Range/Units 10:11 WBC 14.0 H (3.8-10.6) k/uL RBC 5.04 (4.30-5.90) m/uL Hgb 14.9 (13.0-17.5) gm/dL Hct 44.7 (39.0-53.0) % Plt Count 145 L (150-450) k/uL Comprehensive Metabolic Panel 10/14/20 Range/Units 10:11 Sodium 136 L (137-145) mmol/L Potassium 3.7 (3.5-5.1) mmol/L Chloride 100 (98-107) mmol/L Carbon Dioxide 31 H (22-30) mmol/L BUN 31 H (9-20) mg/dL Creatinine 0.70 (0.66-1.25) mg/dL Glucose 158 H (74-99) mg/dL Calcium 8.5 (8.4-10.2) mg/dL AST 86 H (17-59) U/L ALT 235 H (4-49) U/L Alkaline Phosphatase 154 H (38-126) U/L Total Protein 5.2 L (6.3-8.2) g/dL Albumin 2.9 L (3.5-5.0) g/dL Current Medications Generic Name Dose Route Start Last Admin Trade Name Freq PRN Reason Stop Dose Admin Aspirin 81 mg 10/15/20 09:00 Aspirin 81 Mg PO DAILY [place] Sodium Chloride 1,000 mls @ 75 mls/hr 10/14/20 11:15 10/14/20 11:33 Saline 0.9% IV 130 mls/hr .[id number] [place] Administration Naloxone HCl 0.2 mg 10/14/20 13:00 Naloxone 0.4 Mg/Ml 1 Ml Vial IV Q2M PRN Opioid Reversal Intake and Output 10/14/20 10/14/20 10/14/20 06:59 14:59 22:59 Other: Voiding Method Urinal Weight 145.15 kg Patient Weight 10/15/20 06:59 Weight 145.15 kg 10/14/20 10:11 10/14/20 10:11 Assessment and Plan Assessment: Assessment #1 pneumonia #2 morbid obesity #3 mediastinotomy #4 generalized weakness #5 mildly abnormal troponin Plan #1 consider conservative medical approach #2 follow-up with the serial cardiac enzymes #3 obtain 12 please EKG #4 follow-up with the patient
[2020-10-14 17:03] LABS: Ferritin 887.3 ng/mL (22.0-322.0)
[2020-10-14] MEDS ORDERED: SODIUM CHLORIDE 0.9% IVPB ONE (18:55)
[2020-10-14] MEDS ORDERED: VANCOMYCIN IVPB ONE (18:55)
[2020-10-14] MEDS ORDERED: VANCOMYCIN IV PER PHARMACY 1 EACH MISC MISCELLANE PRN (18:55)
[2020-10-14] MEDS ORDERED: CEFEPIME 2 GM in SODIUM CHLORIDE 0.9% 100 ML IVPB ONE (19:15)
--- NOTE | 2020-10-14 20:08 | HP ---
HISTORY AND PHYSICAL DATE OF SERVICE: 10/14/2020 CHIEF COMPLAINT: Shortness of breath. HISTORY OF PRESENT ILLNESS: This 59-year-old gentleman with a past medical history of multiple medical problems, including history of asthma, GERD, hypertension, hyperlipidemia, history of pneumonia, history of peripheral edema, appendectomy, prostate surgery, being followed by Dr. Pagan and [facility] in the outpatient setting, was recently admitted with COVID pneumonia extensively. Patient spent several days in the hospital, including in the ICU. The patient was treated with remdesivir and subsequently with cefepime. The patient improved and the patient was keen on going home. Patient was not willing to go to rehab at that time. The patient was discharged. The cultures were negative during that time. The patient currently has become increasingly short of breath, and the patient came to [facility] and was admitted for further evaluation. The patient is complaining of extreme weakness and tiredness. Patient was sent on 3 L nasal cannula as well as Lantus because of high blood sugars. The pulse ox dropped to 70%. The chest x-ray showed bilateral extensive pneumonia and also mediastinal emphysema, which was confirmed by CTA of the chest which showed no evidence of any pulmonary embolism, but pneumomediastinum was noted. There is no history of any fever, rigor or chills. No history of headache, loss of consciousness, seizures at this time. PAST MEDICAL HISTORY: 1. Recent COVID-19 pneumonia and other complications, as mentioned earlier. 2. History of asthma. 3. GERD. 4. Hypertension. 5. Hyperlipidemia. 6. Pneumonia. MEDICATIONS: Medications prior to admission include prednisone, Wellbutrin, Norvasc, Orazinc, K-Dur, Levemir, Lasix, Pepcid, vitamin D3, Symbicort, Tessalon, Lipitor, vitamin C, Ventolin, Tylenol. ALLERGIES: ADHESIVE TAPES. FAMILY HISTORY: History of CHF, hypertension, depression. SOCIAL HISTORY: No history of smoking. No history of alcohol intake. REVIEW OF SYSTEMS: ENT: No diminished hearing. No diminished vision. CARDIOVASCULAR SYSTEM: As mentioned earlier. RESPIRATORY SYSTEM: As mentioned earlier. GI: No nausea, vomiting. : No dysuria or retention. NERVOUS SYSTEM: No numbness, weakness. ALLERGY/IMMUNOLOGY: Asthma. MUSCULOSKELETAL: As mentioned earlier. HEMATOLOGY/ONCOLOGY: No history of anemia. ENDOCRINE: As mentioned earlier. CONSTITUTIONAL: As mentioned earlier. DERMATOLOGY: Negative. RHEUMATOLOGY: Negative. PSYCHIATRY: As mentioned earlier. PHYSICAL EXAMINATION: Patient is alert, oriented x3. Pulse is 94, blood pressure 147/77, respiration 18, temperature 98 degrees, pulse ox 93% on 5 L. HEENT: Conjunctivae normal. NECK: No jugular venous distention. CARDIOVASCULAR SYSTEM: S1, S2 muffled. RESPIRATORY SYSTEM: Breath sounds diminished at the bases. Bilateral scattered rhonchi and crackles. ABDOMEN: Soft, obese, non-tender. LEGS: No edema. No swelling. NERVOUS SYSTEM: Diffusely weak. JOINTS: No active deforming arthropathy. LABS: WBC 14, hemoglobin 14.9. D-dimer is 0.57. Sodium is 136. Lactic acid is 3. Ferritin is 887. total bilirubin is 2.7, AST is 86, ALT is 235 and troponin 0.046 and procalcitonin 0.18. Albumin is 2.9. ASSESSMENT: 1. Bilateral pneumonia, possibly hospital-acquired pneumonia with acute hypoxic respiratory failure and possible sepsis. 2. Recent COVID-19 pneumonia with acute hypoxic respiratory failure. 3. Extensive mediastinal emphysema. 4. Elevated lactic acid, possibly secondary to sepsis. 5. Elevated bilirubin, AST and ALT; possibly hepatitis associated with COVID-19. 6. Elevated LDH. 7. Troponin 0.046. Rule out acute [id number]-elevation myocardial infarction. 8. Hypoalbuminemia with mild protein-calorie malnutrition. 9. Elevated procalcitonin. 10.Hyponatremia. 11.Thrombocytopenia. 12.Increased white count. 13.History of asthma, intermittent. 14.History of gastroesophageal reflux disease. 15.Hyperlipidemia. 16.History of pneumonia. 17.History of prostate disorder. 18.History of prostate cancer. 19.History of asbestos exposure. 20.History of appendectomy. 21.History of post-traumatic stress disorder. 22.Obesity with body mass index of 43.4. 23.FULL CODE. RECOMMENDATIONS AND DISCUSSION: In this 59-year-old gentleman who presented with multiple complex medical issues, at this time I recommend to continue the current medications, continue symptomatic treatment. I will initiate broad-spectrum IV antibiotics in the form of cefepime and vancomycin. Otherwise, infectious disease evaluation, pulmonary evaluation. Cardiology for elevated troponins. Resume the home medications. Bronchodilators. Overall prognosis extremely guarded because of multiple complex medical issues. Repeat labs will be arranged. Further recommendations to follow. A copy of this dictation is being forwarded to Dr. Pagan, who is the primary physician. Two-D echo with Doppler is also noted. emphysema is a concern. Will continue to monitor. MMODL / IJN: [id number] / MTDD
[2020-10-14 20:15] LABS: Glucose,Whole Blood 274 mg/dL (75-99)
[2020-10-14] MEDS: INSULIN ASPART (NovoLOG) 100 UNIT/ML VIAL SQ SCH (20:29)
[2020-10-14] MEDS: ZINC SULFATE 220 MG CAP PO SCH (20:29)
[2020-10-14] MEDS: POTASSIUM CHLORIDE ER 10 MEQ TAB.ER.PRT PO SCH (20:29)
[2020-10-14] MEDS: INSULIN DETEMIR (LEVEMIR) 100 UNIT/ML SYR SQ SCH (20:30)
[2020-10-14] MEDS: ALBUTEROL HFA INHALER INHALATION SCH (20:51)
[2020-10-14] MEDS: SYMBICORT 160-4.5 MCG INHALER INHALATION SCH (20:51)
[2020-10-14 21:13] LABS: Appearance,Urine Clear (Clear); Bilirubin,Urine Negative (Negative); Blood,Urine Negative (Negative); Color,Urine Yellow; Glucose,Urine (UA) 4+ (Negative); Ketones,Urine Negative (Negative); Nitrite,Urine Negative (Negative); Protein,Urine Trace (Negative); Specific Gravity,Urine 1.034 (1.001-1.035); Urobilinogen,Urine <2.0 mg/dL (<2.0)
[2020-10-14 21:14] LABS: Leukocyte Esterase,Urine Negative (Negative)
[2020-10-14] MEDS: ALPRAZolam 0.25 MG TAB PO PRN (21:18)
[2020-10-14] MEDS: VANCOMYCIN 2,000 MG in SODIUM CHLORIDE 0.9% 500 ML 500 ML IVPB SCH (21:19)
[2020-10-15] MEDS: CEFEPIME 2 GM in SODIUM CHLORIDE 0.9% 100 ML IVPB SCH ×3 (02:53→20:29)
[2020-10-15] MEDS: VANCOMYCIN 2,000 MG in SODIUM CHLORIDE 0.9% 500 ML 500 ML IVPB SCH ×2 (02:53→12:45)
[2020-10-15 06:11] LABS: Glucose,Whole Blood 113 mg/dL (75-99)
[2020-10-15] MEDS: INSULIN ASPART (NovoLOG) 100 UNIT/ML VIAL SQ SCH ×4 (06:45→21:37)
[2020-10-15 07:36] LABS: Basophils % (A) 0 %; Eosinophils # (A) 0.3 k/uL (0-0.7); Eosinophils % (A) 3 %; HCT 39.6 % (39.0-53.0); HGB 12.8 gm/dL (13.0-17.5); Lymphocytes # (A) 0.6 k/uL (1.0-4.8); Lymphocytes % (A) 6 %; MCH 29.3 pg (25.0-35.0); MCHC 32.4 g/dL (31.0-37.0); MCV 90.7 fL (80.0-100.0); Mean Platelet Volume 7.1; Monocytes # (A) 0.3 k/uL (0-1.0); Monocytes % (A) 3 %; Neutrophils # (A) 8.3 k/uL (1.3-7.7); Neutrophils % (A) 87 %; Platelet Count 106 k/uL (150-450); RBC 4.37 m/uL (4.30-5.90); WBC 9.6 k/uL (3.8-10.6)
[2020-10-15 07:48] LABS: ALT 223 U/L (4-49); AST 65 U/L (17-59); African American GFR (CKD) >90 (>60 ml/min/1.73 sqM); Albumin 2.4 g/dL (3.5-5.0); Alkaline Phosphatase 104 U/L (38-126); Anion Gap -1 mmol/L; Blood Urea Nitrogen 22 mg/dL (9-20); Calcium 7.8 mg/dL (8.4-10.2); Carbon Dioxide 31 mmol/L (22-30); Chloride 103 mmol/L (98-107); Glucose 96 mg/dL (74-99); Non-African American GFR(CKD) >90 (>60 ml/min/1.73 sqM); Potassium 4.1 mmol/L (3.5-5.1); Sodium 133 mmol/L (137-145); Total Bilirubin 2.3 mg/dL (0.2-1.3); Total Protein 4.5 g/dL (6.3-8.2)
[2020-10-15] MEDS: ALBUTEROL HFA INHALER INHALATION SCH ×4 (08:49→22:22)
[2020-10-15] MEDS: SYMBICORT 160-4.5 MCG INHALER INHALATION SCH ×2 (08:49→22:22)
[2020-10-15] MEDS: CHOLECALCIFEROL 400 UNIT TAB PO SCH (09:09)
[2020-10-15] MEDS: amLODIPine 5 MG TAB PO SCH (09:09)
[2020-10-15] MEDS: ASCORBIC ACID 500 MG TAB PO SCH (09:09)
[2020-10-15] MEDS: FAMOTIDINE 20 MG TAB PO SCH (09:09)
[2020-10-15] MEDS: ASPIRIN 81 MG PO SCH (09:09)
[2020-10-15] MEDS: buPROPion 75 MG TAB PO SCH (09:09)
[2020-10-15] MEDS: FUROSEMIDE 40 MG TAB PO SCH (09:09)
[2020-10-15] MEDS: ZINC SULFATE 220 MG CAP PO SCH (09:10)
[2020-10-15] MEDS: ATORVASTATIN 80 MG TAB PO SCH (09:10)
[2020-10-15] MEDS: POTASSIUM CHLORIDE ER 10 MEQ TAB.ER.PRT PO SCH (09:10)
--- NOTE | 2020-10-15 09:55 | P.PN ---
Subjective Progress Note Date: 10/15/20 This is a 59-year-old gentleman with a past medical history significant for morbid obesity as well as history of asthma and prostate cancer who just was discharged from the hospital yesterday on October 13 after prolonged hospital admission with pneumonia related to COVID-19 infection. The patient was d ischarged home in stable medical condition. He was at home when he started experiencing extensive cough subsequently he fell. He called ambulance and the patient was brought to the emergency department. He was experiencing chest discomfort and the CTA of the chest revealed pneumomediastinum with a scattered small amount of air extending toward the soft tissue of the neck. We consulted to see the patient mainly because of abnormal troponin. No EKG available at this point but the EKG is in process to be done. Currently the patient is chest pain-free. No history of coronary artery disease or congestive heart failure or cardiac arrhythmia. When the patient was seen by ambulance he was hypoxic. The patient was seen this morning. He is overall feeling better indeterminable shortness of breath. No chest pain or chest discomfort. The second 2 sets of enzymes came in to be unremarkable. From a cardiovascular standpoint overview, no reason for any further cardiac workup and will follow-up with the patient on when necessary case. Please note that the EKG showed sinus rhythm without any significant ST or T-wave abnormalities Objective - Vital Signs Vital signs: Vital Signs Temp 98.2 F 10/15/20 03:26 Pulse 94 10/14/20 13:00 Resp 20 10/15/20 03:26 BP 110/61 10/15/20 03:26 Pulse Ox 94 L 10/15/20 03:26 Intake & Output 10/14/20 10/15/20 10/15/20 18:59 06:59 18:59 Intake Total 1020 1080 240 Output Total 850 Balance 1020 230 240 Weight 145.15 kg 148.5 kg Intake: Oral 1020 1080 240 Output: Urine 850 Other: Voiding Method Urinal Urinal # Voids 1 1 # Bowel Movements 1 - Constitutional General appearance: Present: no acute distress - Labs CBC & Chem 7: 10/15/20 07:07 10/15/20 07:07 Labs: Abnormal Lab Results - Last 24 Hours (Table) 10/14/20 10/14/20 10/14/20 Range/Units 10:11 10:11 10:11 WBC 14.0 H (3.8-10.6) k/uL Hgb (13.0-17.5) gm/dL Plt Count 145 L (150-450) k/uL Neutrophils # 12.1 H (1.3-7.7) k/uL Lymphocytes # 0.7 L (1.0-4.8) k/uL APTT 19.6 L (22.0-30.0) sec Sodium 136 L (137-145) mmol/L Carbon Dioxide 31 H (22-30) mmol/L BUN 31 H (9-20) mg/dL Creatinine (0.66-1.25) mg/dL Glucose 158 H (74-99) mg/dL POC Glucose (mg/dL) (75-99) mg/dL Plasma Lactic Acid Guru (0.7-2.0) mmol/L Calcium (8.4-10.2) mg/dL Ferritin 887.3 H (22.0-322.0) ng/mL Total Bilirubin 2.7 H (0.2-1.3) mg/dL AST 86 H (17-59) U/L ALT 235 H (4-49) U/L Alkaline Phosphatase 154 H (38-126) U/L Lactate Dehydrogenase 1054 H (313-618) U/L Troponin I (0.000-0.034) ng/mL Total Protein 5.2 L (6.3-8.2) g/dL Albumin 2.9 L (3.5-5.0) g/dL Procalcitonin (0.02-0.09) ng/mL Urine Protein (Negative) Urine Glucose (UA) (Negative) Coronavirus (PCR) (Not Detectd) 10/14/20 10/14/20 10/14/20 Range/Units 10:11 10:11 10:11 WBC (3.8-10.6) k/uL Hgb (13.0-17.5) gm/dL Plt Count (150-450) k/uL Neutrophils # (1.3-7.7) k/uL Lymphocytes # (1.0-4.8) k/uL APTT (22.0-30.0) sec Sodium (137-145) mmol/L Carbon Dioxide (22-30) mmol/L BUN (9-20) mg/dL Creatinine (0.66-1.25) mg/dL Glucose (74-99) mg/dL POC Glucose (mg/dL) (75-99) mg/dL Plasma Lactic Acid Guru 3.0 H* (0.7-2.0) mmol/L Calcium (8.4-10.2) mg/dL Ferritin (22.0-322.0) ng/mL Total Bilirubin (0.2-1.3) mg/dL AST (17-59) U/L ALT (4-49) U/L Alkaline Phosphatase (38-126) U/L Lactate Dehydrogenase (313-618) U/L Troponin I 0.046 H* (0.000-0.034) ng/mL Total Protein (6.3-8.2) g/dL Albumin (3.5-5.0) g/dL Procalcitonin 0.18 H (0.02-0.09) ng/mL Urine Protein (Negative) Urine Glucose (UA) (Negative) Coronavirus (PCR) (Not Detectd) 10/14/20 10/14/20 10/14/20 Range/Units 20:12 20:20 21:04 WBC (3.8-10.6) k/uL Hgb (13.0-17.5) gm/dL Plt Count (150-450) k/uL Neutrophils # (1.3-7.7) k/uL Lymphocytes # (1.0-4.8) k/uL APTT (22.0-30.0) sec Sodium (137-145) mmol/L Carbon Dioxide (22-30) mmol/L BUN (9-20) mg/dL Creatinine (0.66-1.25) mg/dL Glucose (74-99) mg/dL POC Glucose (mg/dL) 274 H (75-99) mg/dL Plasma Lactic Acid Guru (0.7-2.0) mmol/L Calcium (8.4-10.2) mg/dL Ferritin (22.0-322.0) ng/mL Total Bilirubin (0.2-1.3) mg/dL AST (17-59) U/L ALT (4-49) U/L Alkaline Phosphatase (38-126) U/L Lactate Dehydrogenase (313-618) U/L Troponin I (0.000-0.034) ng/mL Total Protein (6.3-8.2) g/dL Albumin (3.5-5.0) g/dL Procalcitonin (0.02-0.09) ng/mL Urine Protein Trace H (Negative) Urine Glucose (UA) 4+ H (Negative) Coronavirus (PCR) Detected A (Not Detectd) 10/15/20 10/15/20 10/15/20 Range/Units 06:09 07:07 07:07 WBC (3.8-10.6) k/uL Hgb 12.8 L (13.0-17.5) gm/dL Plt Count 106 L (150-450) k/uL Neutrophils # 8.3 H (1.3-7.7) k/uL Lymphocytes # 0.6 L (1.0-4.8) k/uL APTT (22.0-30.0) sec Sodium 133 L (137-145) mmol/L Carbon Dioxide 31 H (22-30) mmol/L BUN 22 H (9-20) mg/dL Creatinine 0.52 L (0.66-1.25) mg/dL Glucose (74-99) mg/dL POC Glucose (mg/dL) 113 H (75-99) mg/dL Plasma Lactic Acid Guru (0.7-2.0) mmol/L Calcium 7.8 L (8.4-10.2) mg/dL Ferritin (22.0-322.0) ng/mL Total Bilirubin 2.3 H (0.2-1.3) mg/dL AST 65 H (17-59) U/L ALT 223 H (4-49) U/L Alkaline Phosphatase (38-126) U/L Lactate Dehydrogenase (313-618) U/L Troponin I (0.000-0.034) ng/mL Total Protein 4.5 L (6.3-8.2) g/dL Albumin 2.4 L (3.5-5.0) g/dL Procalcitonin (0.02-0.09) ng/mL Urine Protein (Negative) Urine Glucose (UA) (Negative) Coronavirus (PCR) (Not Detectd) Assessment and Plan Assessment: Assessment #1 pneumonia #2 morbid obesity #3 mediastinotomy #4 generalized weakness #5 mildly abnormal troponin Plan #1 consider conservative medical approach #2 follow-up with the patient on when necessary case
--- NOTE | 2020-10-15 10:37 | US ---
EXAMINATION TYPE: US venous doppler duplex LE DATE OF EXAM: 10/15/2020 9:53 AM COMPARISON: US 2018 CLINICAL HISTORY: DVT. Bilateral leg pain SIDE PERFORMED: Bilateral TECHNIQUE: The lower extremity deep venous system is examined utilizing real time linear array sonog pablo with graded compression, doppler sonography and color-flow sonography. VESSELS IMAGED: Common Femoral Vein Deep Femoral Vein Greater Saphenous Vein * Femoral Vein Popliteal Vein Small Saphenous Vein * Proximal Calf Veins (* superficial vessels) There is normal flow, compressibility, vascular waveforms. Right Leg: Appears negative for DVT Left Leg: Appears negative for DVT IMPRESSION: No evident deep venous thrombosis at or above the knees.
[2020-10-15 11:56] LABS: Glucose,Whole Blood 117 mg/dL (75-99)
--- NOTE | 2020-10-15 12:42 | XR ---
EXAMINATION TYPE: XR chest 1V portable DATE OF EXAM: 10/15/2020 COMPARISON: Prior chest x-ray 10/14/2020 HISTORY: Pneumonia, cough TECHNIQUE: Single frontal view of the chest is obtained. FINDINGS: Bilateral airspace disease shows a similar appearance to prior exam. There is motion on ex am. No evident pneumothorax or pleural effusion. Heart is enlarged. Postop change again noted to the left shoulder. IMPRESSION: Cardiomegaly, correlate for pneumonia, edema.
--- NOTE | 2020-10-15 13:34 | PN ---
PROGRESS NOTE PULMONARY/CRITICAL CARE PROGRESS NOTE: DATE OF SERVICE: October 15, 2020. INTERVAL HISTORY: This is a patient who was recently inpatient for a number of days for COVID-19 pneumonia with acute hypoxemic respiratory failure. He was home for just about a day or so. He came right back into the hospital because apparently he fell from weakness. He was unable to get up. Also, because of forceful coughing, he was noted on CT scan to have pneumomediastinum. His COVID-19 pneumonia was diagnosed back on September 15. He was discharged from the hospital on the . He was readmitted to the hospital on the . Currently, he is doing about the same. He does have a history of morbid obesity, mild intermittent chronic bronchial asthma, hyperlipidemia, GERD, previous asbestos exposure, and lower extremity edema. The patient did have Dopplers of the lower extremities. They were negative for DVT. He was complaining of some swelling. In addition, he had a chest CT/CT angiogram which revealed pneumomediastinum as well as diffuse bilateral infiltrates consistent with the patient's prior diagnosis of COVID-19 pneumonia/pneumonitis. Currently, he is sitting at the bedside. Looks relatively comfortable. The patient is currently on O2 at 5 L. PHYSICAL EXAMINATION: VITAL SIGNS: Current vital signs include temperature 98.2. Heart rate is 75, respiratory rate 18, blood pressure 126/71, mean 89 and saturations are in the mid 90s. GENERAL: Appears in no acute distress. HEENT: Examination is grossly unremarkable. Nasal O2 in place. NECK: Supple. Full range of motion. No adenopathy. Neck veins are flat. CARDIOVASCULAR: Examination reveals regular rhythm and rate. Heart rate mid 70s. S1, S2 normal. No murmur. LUNGS: Reveal some diffuse bilateral rhonchi. No wheezes or crackles. ABDOMEN: Soft, but obese. No masses or tenderness. EXTREMITIES are intact. Mild edema. SKIN: Without rash. NEUROLOGIC: Examination is brief but nonfocal. LABS: Reviewed. White count 9.6, hemoglobin 12.8, hematocrit 39.6, platelet count 106,000. Sodium 133, potassium 4.1. Chloride 103. CO2 is 31, BUN and creatinine were 22 and 0.52. Calcium 7.8, bilirubin 2.3, albumin 2.4, AST 65, ALT 223. Microbiology is currently negative. Chest x-ray from today shows patchy bilateral infiltrates. Venous Dopplers are negative. CT angiogram was reviewed. CURRENT MEDICATIONS: Reviewed. The patient is on albuterol inhaler, Xanax, amlodipine, vitamin C, aspirin, Lipitor, Tessalon Perles, Symbicort, Wellbutrin, cefepime, vitamin D3, famotidine, Lasix, insulin, Narcan, potassium chloride, vancomycin and zinc. Procalcitonin level was 0.18, which is elevated but below 0.25. This suggests a low likelihood of bacterial infection. ASSESSMENT: 1. Generalized weakness with a fall, the patient unable to get himself up, therefore EMS was called and he was brought back into the hospital, after only being home 1 day. 2. Pneumomediastinum secondary to forceful coughing. This was seen on CT scan. 3. COVID-19 pneumonia with acute hypoxemic respiratory failure, with a prolonged hospitalization, beginning on September 15 and ending on October 13. During that hospitalization, patient received 5 days of Remdesivir, convalescent plasma, Decadron, Lovenox, vitamin C, vitamin D3, and zinc. 4. Morbid obesity. 5. Lifelong nonsmoker. 6. Lower extremity Dopplers, negative, no evidence of lower extremity deep venous thrombosis. 7. History of mild intermittent chronic bronchial asthma. 8. Hyperlipidemia. 9. Gastroesophageal reflux disease. 10.Previous history of asbestos exposure. 11.Chronic lower extremity edema. PLAN: Currently, the patient appears relatively stable. We will continue to follow. Dopplers are negative. A CT angiogram was evaluated. There was no evidence of pulmonary embolism. The patient remains on cefepime and vancomycin. His procalcitonin level is below 0.25 suggesting low likelihood of bacterial infection. We will continue to follow along with the primary service. MMODL / IJN: [id number] /
[2020-10-15 17:01] LABS: Glucose,Whole Blood 144 mg/dL (75-99)
--- NOTE | 2020-10-15 17:16 | PN ---
PROGRESS NOTE DATE OF SERVICE: 10/15/2020 This 59-year-old gentleman who was admitted with bilateral pneumonia, possibly hospital- acquired pneumonia, is being closely monitored at this time. The patient also had pneumomediastinum. The patient recently had COVID-19 infection. A chest x-ray showed significant lesions, with some improvement. The patient is on broad-spectrum IV antibiotics. Cultures are negative so far. Multiple consultants are following the patient closely, including Infectious Disease and Pulmonary. Venous study was also noted. Chest x-ray was personally reviewed by me. Venous Doppler showed no evidence of DVT. Past medical history reviewed. REVIEW OF SYSTEMS: CARDIOVASCULAR SYSTEM: No angina, palpitations. RESPIRATORY SYSTEM: As mentioned earlier. GI: As mentioned earlier. : No dysuria or retention. NERVOUS SYSTEM: No numbness, weakness. CURRENT MEDICATIONS: Reviewed. They include Ventolin, Xanax, Norvasc, vitamin C, aspirin, Lipitor, Tessalon, Symbicort, Wellbutrin, cefepime, vitamin D3, Pepcid, Levemir. Doses reviewed. PHYSICAL EXAMINATION: Patient is alert and oriented x3. Pulse 80, blood pressure is 120/71, respiration 18, temperature 98.2, pulse ox 94% on 5 L. HEENT: Conjunctivae normal. NECK: No jugular venous distention. CARDIOVASCULAR SYSTEM: S1, S2 muffled. RESPIRATORY SYSTEM: Breath sounds diminished at the bases. Bilateral scattered rhonchi and crackles. ABDOMEN: Soft, obese, non-tender. LEGS: No edema. No swelling. NERVOUS SYSTEM: No focal deficit. LABS: Platelets 106, sodium 133. Total bilirubin is 2.3. AST is 65 and ALT is 223. Overall, the values are showing some diminishing trends. COVID-19 is positive. ASSESSMENT: 1. Bilateral pneumonia, possibly hospital-acquired pneumonia, with acute hypoxic respiratory failure and possible sepsis, present on admission. 2. Recent COVID-19 pneumonia with acute hypoxic respiratory failure. Treated with multiple modalities, including convalescent plasma as well as remdesivir. 3. Extensive mediastinal emphysema. 4. COVID-19 persistently positive. 5. Elevated lactic acid, possibly secondary to sepsis. 6. Elevated bilirubin, AST, ALT; possibly hepatitis associated with COVID-19. 7. Elevated LDH. 8. Troponin 0.046. Rule out acute sle-PM-hmirojz-elevation myocardial infarction. 9. Hypoalbuminemia with mild protein-calorie malnutrition. 10.Elevated procalcitonin. 11.Hyponatremia. 12.Thrombocytopenia. 13.Increased white count. 14.History of asthma, intermittent. 15.History of gastroesophageal reflux disease. 16.History of hyperlipidemia. 17.History of pneumonia. 18.History of prostate disorder. 19.History of prostate cancer. 20.History of asbestos exposure. 21.History of appendectomy. 22.History of post-traumatic stress disorder. 23.History of obesity with body mass index 43.4. 24.FULL CODE. RECOMMENDATIONS AND DISCUSSION: I recommend to continue current medications, continue with the monitoring, symptomatic treatment. Continue with the bronchodilators. Continue with empiric antibiotics. Follow the cultures. Will follow with multiple consultants. Prognosis guarded because of multiple complex medical issues. Further recommendations to follow. MMODL / IJN: [id number] /
--- NOTE | 2020-10-15 19:00 | ECHOF ---
Referral Reason:troponin elevation MEASUREMENTS -------- HEIGHT: 182.9 cm WEIGHT: 145.1 kg BP: 125/83 IVSd: 1.3 cm (0.6 - 1.1) LVIDd: 3.2 cm (3.9 - 5.3) LVPWd: 1.3 cm (0.6 - 1.1) IVSs: 1.8 cm LVIDs: 2.2 cm LVPWs: 1.7 cm LA Diam: 3.2 cm (2.7 - 3.8) RVIDd: 3.3 cm (< 3.3) Ao Diam: 3.8 cm (2.0 - 3.7) AV Cusp: 1.8 cm (1.5 - 2.6) EPSS: 0.7 cm MV E Boom: 0.80 m/s MV DecT: 199 ms MV A Boom: 1.16 m/s MV E/A Ratio: 0.69 AV maxP.39 mmHg AV meanP.69 mmHg RAP: 5.00 mmHg RVSP: 23.23 mmHg MV EF SLOPE: 60.60 mm/s (70 - 150) MV EXCURSION: 15.86 mm (> 18.000) FINDINGS -------- This was a technically difficult study with suboptimal views. The left ventricular size is normal. There is mild concentric left ventricular hypertrophy. Overa ll left ventricular systolic function is normal with, an EF between 65 - 70 %. The right ventricle is mildly enlarged. The left atrium is normal in size. The right atrium was not well visualized. 5.0mg of Lumason was utilized for enhancement of images The aortic valve is trileaflet and appears structurally normal. Peak/mean gradient across the Aorti c Valve is 16.39mmHg / 6.69mmHg. The mitral valve is normal. Mild tricuspid regurgitation present. Right ventricular systolic pressure is normal at < 35 mmHg. Trace/mild (physiologic) pulmonic regurgitation. The aortic root is dilated measuring 3.8cm. IVC Not well visulized. There is no pericardial effusion. CONCLUSIONS -------- 1. The left ventricular size is normal. 2. There is mild concentric left ventricular hypertrophy. 3. The right ventricle is mildly enlarged. 4. 5.0mg of Lumason was utilized for enhancement of images 5. The aortic valve is trileaflet and appears structurally normal. 6. Peak/mean gradient across the Aortic Valve is 16.39mmHg / 6.69mmHg. 7. Mild tricuspid regurgitation present. 8. Trace/mild (physiologic) pulmonic regurgitation. 9. The aortic root is dilated measuring 3.8cm. 10. There is no pericardial effusion. CRAB BACKER: ZAKIA Tinajero
[2020-10-15 20:18] LABS: Glucose,Whole Blood 187 mg/dL (75-99)
[2020-10-15] MEDS: SODIUM CHLORIDE 0.9% 1,000 ML IV SCH (20:30)
[2020-10-15] MEDS: INSULIN DETEMIR (LEVEMIR) 100 UNIT/ML SYR SQ SCH (21:36)
--- NOTE | 2020-10-15 22:23 | P.CONS ---
History of Present Illness - Reason for Consult Consult date: 10/15/20 Recent Covid 19 Requesting physician: Alden Benoit - Chief Complaint weakness and shortness of breath x 1 day - History of Present Illness Patient is a 59-year male who was recently admitted at [facility] for about a month from September 15, 2010 October 13 with the patient was treated for COVID-19 pneumonia, patient presented back to the hospital within 24-hour from the discharge after apparently the patient felt very weak he was tried to try to stand up did fell down to the chair and was able to get up and move around patient denies having any loss of consciousness the patient had denies having any headache no URI symptoms, denies having any chest pain has been complaining of shortness of breath on minimal exertion he also have a cough with moderate intensity and is bringing up some sputum no hemoptysis no pleuritic chest pain no nausea no vomiting no abdominal pain no diarrhea with the symptom the with the symptom the patient has been evaluated by ER physician on arrival to the ER the patient has been afebrile patient did have white count of 14,000 with a left shift, patient did have a normal CRP but procalcitonin of 0.18 [address] did have a CT angiogram of the chest with evidence of pneumomediastinum with scattered small amounts of air extending towards the soft tissue of the neck and scattered infiltrate within the periphery of the bilateral lungs patient was started patient was started on vancomycin and cefepime has been admitted to hospital infection was consulted for further management of antibiotic therapy. Review of Systems Positive point has been mentioned in HPI rest of the systems are negative Past Medical History Past Medical History: Asthma, Cancer, GERD/Reflux, Hyperlipidemia, Pneumonia, Prostate Disorder Additional Past Medical History / Comment(s): peripheral edema. 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 History of Any Multi-Drug Resistant Organisms: None Reported Year Discovered:: 10/01/17 MDRO Source:: incision Past Surgical History: Appendectomy, Prostate Surgery Additional Past Surgical History / Comment(s): as youth fell on broken glass jar and cut tendons lt writs-had sx to repair.left wrist carpal tunnel release, , left shoulder rotator reconstruction and has a pin in place, cystectomy tailbone, open abdominal surgery to remove prsotate Past Anesthesia/Blood Transfusion Reactions: No Reported Reaction Past Psychological History: PTSD Additional Psychological History / Comment(s): Pt resides with his spouse and 17 year old son. He is independent. Pt served in the [employer]. Smoking Status: Never smoker Past Alcohol Use History: None Reported Additional Past Alcohol Use History / Comment(s): . Past Drug Use History: None Reported - Past Family History Father Family Medical History: Congestive Heart Failure (CHF), Hypertension Mother Family Medical History: Cancer Additional Family Medical History / Comment(s): depression Medications and Allergies Home Medications Medication Instructions Recorded Confirmed Type Atorvastatin [Lipitor] 80 mg PO DAILY 09/15/20 10/14/20 History Potassium Chloride ER [K-Dur 10] 10 meq PO DAILY 09/15/20 10/14/20 History buPROPion [Wellbutrin] 150 mg PO DAILY 09/15/20 10/14/20 History Acetaminophen Tab [Tylenol] 650 mg PO Q4HR PRN tab 10/13/20 10/14/20 Rx Albuterol Inhaler [Ventolin Hfa 2 puff INHALATION RT-QID puff 10/13/20 10/14/20 Rx Inhaler] Ascorbic Acid [Vitamin C] 1,000 mg PO DAILY 30 Days #60 tab 10/13/20 10/14/20 Rx Benzonatate [Tessalon Perles] 200 mg PO TID PRN #15 cap 10/13/20 10/14/20 Rx Budesonide-Formot 160-4.5 Mcg 2 puff INHALATION RT-BID 30 Days 10/13/20 10/14/20 Rx [Symbicort 160-4.5 Mcg Inhaler] #1 puff Cholecalciferol [Vitamin D3] 400 unit PO DAILY 30 Days #30 tab 10/13/20 10/14/20 Rx Famotidine [Pepcid] 40 mg PO DAILY 30 Days #30 tab 10/13/20 10/14/20 Rx Furosemide [Lasix] 40 mg PO DAILY 30 Days #60 tab 10/13/20 10/14/20 Rx Insulin Detemir (Levemir) [Levemir] 30 unit SQ HS 30 Days #4 syr 10/13/20 10/14/20 Rx Zinc Sulfate [Orazinc] 220 mg PO DAILY 30 Days #30 cap 10/13/20 10/14/20 Rx amLODIPine [Norvasc] 5 mg PO DAILY 30 Days #30 tab 10/13/20 10/14/20 Rx predniSONE See Taper PO DIRECTED 10/14/20 10/14/20 History Allergies Allergy/AdvReac Type Severity Reaction Status Date / Time adhesive tape Allergy Rash/Hives Verified 10/14/20 10:31 Physical Exam Vitals: Vital Signs Temp Resp BP Pulse Ox 10/15/20 16:00 18 120/68 95 10/15/20 08:00 98.2 F 18 126/71 95 10/15/20 03:26 98.2 F 20 110/61 94 L 10/15/20 00:00 97.8 F 18 113/65 93 L Intake and Output 10/15/20 10/15/20 10/15/20 06:59 14:59 22:59 Intake Total 540 480 240 Output Total 450 450 225 Balance 90 30 15 Intake: Oral 540 480 240 Output: Urine 450 450 225 Other: Voiding Method Urinal # Voids 1 Weight 148.5 kg GENERAL DESCRIPTION: Middle-aged male up in bed, no distress. No tachypnea or accessory muscle of respiration use. HEENT: Shows Pallor , no scleral icterus. Oral mucous membrane is dry. NECK: Trachea central, no thyromegaly. LUNGS: Unlabored breathing. Decrease intensity of breath sounds. No wheeze or crackle. HEART: S1, S2, regular rate and rhythm. ABDOMEN: Soft, no tenderness , guarding or rigidity EXTREMITIES: No edema of feet. SKIN: No rash, no masses palpable. NEUROLOGICAL: The patient is awake, alert, oriented x3, mood and affect normal. Results CBC & Chem 7: 10/15/20 07:07 10/15/20 07:07 Labs: Abnormal Lab Results - Last 24 Hours (Table) 10/14/20 10/15/20 10/15/20 Range/Units 20:20 06:09 07:07 Hgb (13.0-17.5) gm/dL Plt Count (150-450) k/uL Neutrophils # (1.3-7.7) k/uL Lymphocytes # (1.0-4.8) k/uL Sodium (137-145) mmol/L Carbon Dioxide (22-30) mmol/L BUN (9-20) mg/dL Creatinine (0.66-1.25) mg/dL POC Glucose (mg/dL) 113 H (75-99) mg/dL Hemoglobin A1c 8.7 H (4.0-6.0) % Calcium (8.4-10.2) mg/dL Total Bilirubin (0.2-1.3) mg/dL AST (17-59) U/L ALT (4-49) U/L Total Protein (6.3-8.2) g/dL Albumin (3.5-5.0) g/dL Coronavirus (PCR) Detected A (Not Detectd) 10/15/20 10/15/20 10/15/20 Range/Units 07:07 07:07 11:48 Hgb 12.8 L (13.0-17.5) gm/dL Plt Count 106 L (150-450) k/uL Neutrophils # 8.3 H (1.3-7.7) k/uL Lymphocytes # 0.6 L (1.0-4.8) k/uL Sodium 133 L (137-145) mmol/L Carbon Dioxide 31 H (22-30) mmol/L BUN 22 H (9-20) mg/dL Creatinine 0.52 L (0.66-1.25) mg/dL POC Glucose (mg/dL) 117 H (75-99) mg/dL Hemoglobin A1c (4.0-6.0) % Calcium 7.8 L (8.4-10.2) mg/dL Total Bilirubin 2.3 H (0.2-1.3) mg/dL AST 65 H (17-59) U/L ALT 223 H (4-49) U/L Total Protein 4.5 L (6.3-8.2) g/dL Albumin 2.4 L (3.5-5.0) g/dL Coronavirus (PCR) (Not Detectd) 10/15/20 10/15/20 Range/Units 16:50 20:13 Hgb (13.0-17.5) gm/dL Plt Count (150-450) k/uL Neutrophils # (1.3-7.7) k/uL Lymphocytes # (1.0-4.8) k/uL Sodium (137-145) mmol/L Carbon Dioxide (22-30) mmol/L BUN (9-20) mg/dL Creatinine (0.66-1.25) mg/dL POC Glucose (mg/dL) 144 H 187 H (75-99) mg/dL Hemoglobin A1c (4.0-6.0) % Calcium (8.4-10.2) mg/dL Total Bilirubin (0.2-1.3) mg/dL AST (17-59) U/L ALT (4-49) U/L Total Protein (6.3-8.2) g/dL Albumin (3.5-5.0) g/dL Coronavirus (PCR) (Not Detectd) Microbiology - Last 24 Hours (Table) 10/14/20 10:11 Blood Culture - Preliminary Blood No Growth after 24 hours 10/14/20 10:11 Blood Culture - Preliminary Blood No Growth after 24 hours Assessment and Plan Assessment: 1- patient with a recent covid 19 infection for the patient was in hospital for almost a month and get readmitted to the hospital within 24-hour of discharge shortness of breath this patient noticed to have evidence of pneumomediastinum and scattered bilateral infiltrate patient did not have any fever and did have normal CRP though the upper AND it was mildly elevated secondary bacterial pneumonia less likely but not entirely excluded (1) Pneumonia Current Visit: Yes Status: Acute Code(s): J18.9 - PNEUMONIA, UNSPECIFIED ORGANISM SNOMED Code(s): 094506349 Plan: 1- obtain sputum for Gram stain and culture 2-continue cefepime and vancomycin while watching his kidney function closely We will follow on clinical condition and cultures to further adjust medication if needed Thank you for this consultation will follow this patient with you Time with Patient: Greater than 30
[2020-10-16] MEDS: VANCOMYCIN 2,000 MG in SODIUM CHLORIDE 0.9% 500 ML 500 ML IVPB SCH ×3 (00:41→17:14)
[2020-10-16] MEDS: ALPRAZolam 0.25 MG TAB PO PRN (00:50)
[2020-10-16] MEDS: CEFEPIME 2 GM in SODIUM CHLORIDE 0.9% 100 ML IVPB SCH ×3 (03:29→18:54)
[2020-10-16 05:47] LABS: Glucose,Whole Blood 106 mg/dL (75-99)
[2020-10-16] MEDS: INSULIN ASPART (NovoLOG) 100 UNIT/ML VIAL SQ SCH ×4 (06:22→20:25)
--- NOTE | 2020-10-16 07:18 | XR ---
EXAMINATION TYPE: XR chest 1V portable DATE OF EXAM: 10/16/2020 CLINICAL HISTORY: Difficulty breathing and cough progress study. TECHNIQUE: Single AP portable upright view of the chest is obtained. COMPARISON: Chest x-ray from one day earlier. CTA chest from 2 days ago. FINDINGS: Low lung volumes with increased opacities bilaterally remain present. Stable cardiomegaly. Surgical changes left osseous glenoid redemonstrated. IMPRESSION: Low lung volumes and cardiomegaly with left greater than right multifocal acute infiltrat es are all redemonstrated. No significant change from most recent x-ray.
[2020-10-16] MEDS: ALBUTEROL HFA INHALER INHALATION SCH ×4 (08:17→20:53)
[2020-10-16] MEDS: SYMBICORT 160-4.5 MCG INHALER INHALATION SCH ×2 (08:17→20:54)
[2020-10-16] MEDS: amLODIPine 5 MG TAB PO SCH (10:30)
[2020-10-16] MEDS: ATORVASTATIN 80 MG TAB PO SCH (10:30)
[2020-10-16] MEDS: FAMOTIDINE 20 MG TAB PO SCH (10:30)
[2020-10-16] MEDS: ZINC SULFATE 220 MG CAP PO SCH (10:30)
[2020-10-16] MEDS: ASCORBIC ACID 500 MG TAB PO SCH (10:30)
[2020-10-16] MEDS: FUROSEMIDE 40 MG TAB PO SCH (10:30)
[2020-10-16] MEDS: ASPIRIN 81 MG PO SCH (10:30)
[2020-10-16] MEDS: POTASSIUM CHLORIDE ER 10 MEQ TAB.ER.PRT PO SCH (10:31)
[2020-10-16] MEDS: CHOLECALCIFEROL 400 UNIT TAB PO SCH (10:32)
[2020-10-16] MEDS: buPROPion 75 MG TAB PO SCH (10:32)
[2020-10-16 10:42] LABS: ALT 238 U/L (4-49); AST 81 U/L (17-59); African American GFR (CKD) >90 (>60 ml/min/1.73 sqM); Albumin 2.5 g/dL (3.5-5.0); Alkaline Phosphatase 140 U/L (38-126); Anion Gap 1 mmol/L; Blood Urea Nitrogen 18 mg/dL (9-20); Calcium 8.2 mg/dL (8.4-10.2); Carbon Dioxide 28 mmol/L (22-30); Chloride 107 mmol/L (98-107); Glucose 136 mg/dL (74-99); Non-African American GFR(CKD) >90 (>60 ml/min/1.73 sqM); Sodium 136 mmol/L (137-145); Total Bilirubin 1.5 mg/dL (0.2-1.3); Total Protein 4.7 g/dL (6.3-8.2)
[2020-10-16 10:43] LABS: Basophils % (A) 0 %; Eosinophils # (A) 0.4 k/uL (0-0.7); Eosinophils % (A) 5 %; HCT 40.9 % (39.0-53.0); HGB 13.2 gm/dL (13.0-17.5); Lymphocytes # (A) 0.6 k/uL (1.0-4.8); Lymphocytes % (A) 7 %; MCH 29.4 pg (25.0-35.0); MCHC 32.2 g/dL (31.0-37.0); MCV 91.2 fL (80.0-100.0); Mean Platelet Volume 7.6; Monocytes # (A) 0.3 k/uL (0-1.0); Monocytes % (A) 4 %; Neutrophils # (A) 7.1 k/uL (1.3-7.7); Neutrophils % (A) 83 %; Platelet Count 114 k/uL (150-450); RBC 4.49 m/uL (4.30-5.90); WBC 8.6 k/uL (3.8-10.6)
[2020-10-16 12:06] LABS: Glucose,Whole Blood 130 mg/dL (75-99)
--- NOTE | 2020-10-16 13:16 | PN ---
PROGRESS NOTE PULMONARY/CRITICAL CARE PROGRESS NOTE: DATE OF SERVICE: October 16, 2020. This is a 59-year-old gentleman who was admitted back on October 14. He was discharged from the hospital on the day before on the . He was previously in the hospital for a number of days for an episode of COVID-19 pneumonitis/pneumonia with severe acute hypoxemic respiratory failure. For most of the time, he was on AIRVO. The patient was apparently discharged home on 4 L nasal cannula. He apparently fell at home and was too weak to get up and for that reason, came back in to the hospital. He does have a history of morbid obesity, chronic bronchial asthma, hyperlipidemia, acid reflux disease, previous asbestos exposure, and chronic lower extremity edema. Currently, the patient is complaining about not having his trazodone reordered. I asked the nurse to call the primary about that. In addition, the patient states that his breathing is the same or slightly better. PHYSICAL EXAMINATION: VITAL SIGNS: Current vital signs are reviewed. Temperature is 97.4. Heart rate 95, respiratory rate 24, blood pressure 139/69, mean 92. 5 L saturation 95%. GENERAL: Appears in no acute distress. Sitting at the bedside. HEENT: Examination is grossly unremarkable. NECK: Supple. Full range of motion. No adenopathy. Neck veins are flat. CARDIOVASCULAR: Examination reveals regular rhythm and rate. Heart rate 95 beats per minute. S1, S2 normal. No S3, S4, or murmur. LUNGS: Reveal diffuse bilateral rhonchi. There are bibasilar bilateral crackles. No wheezes. ABDOMEN: Obese. Bowel sounds are heard. EXTREMITIES are intact. There is 1+ pitting edema bilaterally. No cyanosis or clubbing. SKIN: Without rash. NEUROLOGIC: Examination is brief but nonfocal. White count 8.6, hemoglobin 13.2, hematocrit 40.9, platelet count 114,000. Sodium 136, potassium 4, chloride 107, CO2 28, anion gap is 1. BUN and creatinine were 18 and 0.58. Calcium 8.2, bilirubin 1.5, AST 81, ALT 238. Cortisol was 12. Blood cultures were negative. His chest x-ray from today shows left greater than right multifocal acute infiltrates. CURRENT MEDICATIONS: Reviewed. The patient is currently on albuterol inhaler, Xanax, amlodipine, vitamin C, aspirin, Lipitor, Tessalon Perles, Symbicort, Wellbutrin, Maxipime, vitamin D3, famotidine, Lasix, insulin, Narcan, potassium, saline IV, and vancomycin. The patient is also on zinc. ASSESSMENT: 1. Generalized weakness, status post falls, the patient was unable to get up by himself and therefore EMS was called. He was brought back into the hospital. He was only home 1 day. 2. Rule out adrenal insufficiency. 3. Pneumomediastinum, secondary to forceful coughing. This was seen on the CT scan. 4. COVID-19 pneumonia with acute hypoxemic respiratory failure with a prolonged hospitalization beginning on September 15 and ending on October 13. During the hospitalization, the patient was primarily on AIRVO, received 5 days of Remdesivir, convalescent plasma, Decadron, Lovenox, vitamin C, vitamin D3 and zinc. 5. Morbid obesity. 6. Lifelong nonsmoker. 7. Lower extremity Dopplers negative, no evidence of lower extremity deep venous thrombosis. 8. History of mild intermittent chronic bronchial asthma. 9. Hyperlipidemia. 10.Gastroesophageal reflux disease. 11.Previous history of asbestos exposure. 12.Chronic lower extremity edema. PLAN: The patient will be given a trial of Cortef 20 mg in the morning, 10 mg in the evening. This may explain his overall sensation of weakness and fatigue. His cortisol level was a bit low at 12. The antibiotics in my opinion could be de-escalated. The procalcitonin level was less than 0.25. Bacterial infection much less likely. Additional recommendations and suggestions are forthcoming. Prognosis is guarded. MMODL / IJN: [id number] /
[2020-10-16] MEDS ORDERED: VANCOMYCIN TROUGH DUE 1 EACH MISC MISCELLANE ONE (14:00)
[2020-10-16 17:01] LABS: Glucose,Whole Blood 139 mg/dL (75-99)
--- NOTE | 2020-10-16 17:12 | PN ---
PROGRESS NOTE DATE OF SERVICE: 10/16/2020 REASON FOR FOLLOWUP: Pneumonia. INTERVAL HISTORY: The patient is currently afebrile. The patient is breathing more comfortably. He did have a cough with minimal sputum. Denies any chest pain. No nausea, vomiting. No abdominal pain or diarrhea. PHYSICAL EXAMINATION: Blood pressure 120/70 with a pulse of 95, temperature 97.6, 94% on 4 L nasal cannula. General description is a middle-aged male up in the bed in no distress. Respiratory system: Unlabored breathing, decreased breath sounds at the base. No wheeze. Heart: S1, S2. Regular rate and rhythm. Abdomen is soft, no tenderness. LABS: Hemoglobin 13.1, white count 8.6, BUN of 18, creatinine 0.58. DIAGNOSTIC IMPRESSION AND PLAN: Patient admitted to hospital with increasing shortness of breath, generalized weakness and concern for possible pneumonia. The patient is currently covered with vancomycin and cefepime. Try to obtain a sputum. Continue antibiotics. Monitor clinical course closely. MMODL / IJN: [id number] /
[2020-10-16] MEDS: ENOXAPARIN 40 MG/0.4 ML SYRINGE SQ SCH (17:21)
--- NOTE | 2020-10-16 18:36 | PN ---
PROGRESS NOTE DATE OF SERVICE: 10/16/2020 INTERVAL HISTORY: This is a 59-year-old gentleman who was admitted with bilateral pneumonia, possibly hospital acquired pneumonia also had a recent COVID-19 infection. The COVID-19 repeat testing was also positive at this time through the [facility]. The patient received remdesivir but currently the most recent chest x-ray which was done today which was reviewed personally by me showed evidence of bilateral lung lesions. was not seen in this chest x-ray. Multiple consultants are following the patient closely and white count is 8.6 today. The LFTs are also still elevated. Albumin is 2.5. The serum cortisol is 12. The D-dimer is normal. The patient is on multiple medications. PAST MEDICAL HISTORY: Reviewed. REVIEW OF SYSTEMS: CARDIOVASCULAR: No angina. RESPIRATORY: As mentioned earlier. GI: As mentioned earlier. : As mentioned earlier. NERVOUS SYSTEM: No numbness or weakness. CURRENT MEDICATIONS: Include albuterol, Xanax, Norvasc, vitamin C, aspirin, Lipitor, Symbicort, cefepime, cholecalciferol, Pepcid, Lasix, hydrocortisone, insulin, Levemir, trazodone, vancomycin, zinc. PHYSICAL EXAMINATION: GENERAL: Patient is alert and oriented times three. VITAL SIGNS: Pulse 102, blood pressure 127/87, respirations 26, temperature 97.7, pulse ox 94% on 4 liters. HEENT: Conjunctivae normal. NECK: No jugular venous distention. RESPIRATORY: Breath sounds diminished at the bases. A few scattered rhonchi and crackles. HEART: S1 and S2, muffled. ABDOMEN: Soft, no tenderness. EXTREMITIES: No edema, no swelling. NERVOUS: No focal deficits. LABORATORY DATA: Cultures are negative so far. Platelets are 114. Other labs are noted. ASSESSMENT: 1. Bilateral pneumonia possibly hospital-acquired pneumonia with acute hypoxic respiratory failure with possible sepsis present on admission. 2. Recent COVID-19 pneumonia with acute hypoxic respiratory failure. Treated with multiple modalities including convalescent plasma, we well as remdesivir. 3. Extensive mediastinal emphysema. 4. COVID-19 presently positive. 5. Elevated lactic acid, possibly secondary to sepsis present on admission. 6. Elevated bilirubin, AST, ALT, possibly hepatitis associated COVID-19. 7. Elevated LDH. 8. Troponin 0.046. Rule out acute [id number]-elevation myocardial infarction. 9. Hypoalbuminemia with mild protein calorie malnutrition. 10.Elevated procalcitonin. 11.Hyponatremia. 12.Thrombocytopenia. 13.Increased WBC. 14.History of asthma, intermittent. 15.History of gastroesophageal reflux disease. 16.Hyperlipidemia. 17.History of pneumonia. 18.History of prostate disorder. 19.History of prostate cancer. 20.History of asbestos exposure. 21.History of appendectomy. 22.History of post-traumatic stress disorder. 23.History of obesity with body mass index of 43.4. 24.FULL CODE. RECOMMENDATIONS AND DISCUSSION: Recommend to continue current medications and continue with symptomatic treatment. Continue with broad-spectrum antibiotics. Cultures are negative so far. Closely follow with Infectious Disease and Pulmonary. The patient is still short of breath, but oxygenating satisfactorily on nasal cannula 4 L 94%. We will continue to monitor. Repeat labs and repeat chest x-ray has been ordered. LFTs are still elevated. I would recommend to avoid nephrotoxic medications at this time. DVT prophylaxis. Guarded prognosis because of multiple complex medical issues. Further recommendations to follow. MMODL / IJN: [id number] / RACHEAL
[2020-10-16] MEDS: HYDROCORTISONE 10 MG TAB PO SCH (18:57)
[2020-10-16 20:03] LABS: Glucose,Whole Blood 150 mg/dL (75-99)
[2020-10-16] MEDS: traZODone HCL 50 MG TAB PO SCH (20:24)
[2020-10-16] MEDS: INSULIN DETEMIR (LEVEMIR) 100 UNIT/ML SYR SQ SCH (20:26)
[2020-10-16] MEDS: SODIUM CHLORIDE 0.9% 1,000 ML IV SCH (22:21)
[2020-10-17] MEDS: VANCOMYCIN 2,000 MG in SODIUM CHLORIDE 0.9% 500 ML 500 ML IVPB SCH ×3 (00:18→16:54)
[2020-10-17] MEDS: CEFEPIME 2 GM in SODIUM CHLORIDE 0.9% 100 ML IVPB SCH ×3 (04:17→20:47)
[2020-10-17 06:05] LABS: Glucose,Whole Blood 112 mg/dL (75-99)
[2020-10-17] MEDS: INSULIN ASPART (NovoLOG) 100 UNIT/ML VIAL SQ SCH ×4 (06:37→20:48)
[2020-10-17 07:07] LABS: Basophils % (A) 0 %; Eosinophils # (A) 0.3 k/uL (0-0.7); Eosinophils % (A) 4 %; HCT 37.7 % (39.0-53.0); HGB 12.6 gm/dL (13.0-17.5); Lymphocytes # (A) 0.8 k/uL (1.0-4.8); Lymphocytes % (A) 10 %; MCHC 33.5 g/dL (31.0-37.0); MCV 89.5 fL (80.0-100.0); Mean Platelet Volume 7.6; Monocytes # (A) 0.4 k/uL (0-1.0); Monocytes % (A) 5 %; Neutrophils % (A) 78 %; Platelet Count 129 k/uL (150-450); RBC 4.21 m/uL (4.30-5.90); RDW 14.1 % (11.5-15.5); WBC 7.7 k/uL (3.8-10.6)
[2020-10-17 07:17] LABS: ALT 214 U/L (4-49); AST 61 U/L (17-59); African American GFR (CKD) >90 (>60 ml/min/1.73 sqM); Albumin 2.5 g/dL (3.5-5.0); Alkaline Phosphatase 114 U/L (38-126); Anion Gap 0 mmol/L; Blood Urea Nitrogen 15 mg/dL (9-20); Calcium 8.2 mg/dL (8.4-10.2); Carbon Dioxide 31 mmol/L (22-30); Chloride 105 mmol/L (98-107); Glucose 119 mg/dL (74-99); Non-African American GFR(CKD) >90 (>60 ml/min/1.73 sqM); Potassium 3.4 mmol/L (3.5-5.1); Sodium 136 mmol/L (137-145); Total Bilirubin 1.3 mg/dL (0.2-1.3); Total Protein 4.6 g/dL (6.3-8.2)
[2020-10-17] MEDS: SYMBICORT 160-4.5 MCG INHALER INHALATION SCH ×2 (08:07→20:26)
[2020-10-17] MEDS: ALBUTEROL HFA INHALER INHALATION SCH ×4 (08:07→20:26)
[2020-10-17] MEDS: HYDROCORTISONE 20 MG TAB PO SCH (08:46)
[2020-10-17] MEDS: amLODIPine 5 MG TAB PO SCH (08:46)
[2020-10-17] MEDS: CHOLECALCIFEROL 400 UNIT TAB PO SCH (08:46)
[2020-10-17] MEDS: ENOXAPARIN 40 MG/0.4 ML SYRINGE SQ SCH (08:46)
[2020-10-17] MEDS: ZINC SULFATE 220 MG CAP PO SCH (08:47)
[2020-10-17] MEDS: ASPIRIN 81 MG PO SCH (08:47)
[2020-10-17] MEDS: FAMOTIDINE 20 MG TAB PO SCH (08:47)
[2020-10-17] MEDS: buPROPion 75 MG TAB PO SCH (08:47)
[2020-10-17] MEDS: ATORVASTATIN 80 MG TAB PO SCH (08:47)
[2020-10-17] MEDS: ASCORBIC ACID 500 MG TAB PO SCH (08:47)
[2020-10-17] MEDS: FUROSEMIDE 40 MG TAB PO SCH (08:47)
[2020-10-17] MEDS: POTASSIUM CHLORIDE ER 10 MEQ TAB.ER.PRT PO SCH (08:53)
[2020-10-17 11:31] LABS: Glucose,Whole Blood 119 mg/dL (75-99)
[2020-10-17] MEDS: THIAMINE 100 MG TAB PO SCH (11:48)
[2020-10-17] MEDS: MULTIVITAMINS, THERA 1 EACH TAB PO SCH (11:48)
[2020-10-17] MEDS: FOLIC ACID 1 MG TAB PO SCH (11:48)
--- NOTE | 2020-10-17 14:43 | PN ---
PROGRESS NOTE PULMONARY/CRITICAL CARE PROGRESS NOTE: DATE OF SERVICE: 10/17/2020. 59-year-old gentleman who was admitted back on October 14. He was discharged from the hospital the day before on the . He was previously in the hospital for COVID-19 pneumonitis/pneumonia from September 15 to October 13. More recently, he fell. He could not get up off the ground because he was weak. He was readmitted to the hospital. He has a history of morbid obesity, asthma, hyperlipidemia, GERD, previous asbestos exposure, and chronic lower extremity edema. Currently, he has been weaned down to 2 L nasal cannula. From my perspective, the patient could be discharged home. PHYSICAL EXAMINATION: VITAL SIGNS: Current vital signs include temperature 98, heart rate 88, respiratory rate 20, blood pressure 115/60, mean 78, saturations are 94% on 2 L. Appears in no acute distress. HEENT: Examination is grossly unremarkable. NECK: Supple. Full range of motion. No adenopathy. Neck veins are flat. CARDIOVASCULAR: Examination reveals regular rhythm and rate. Heart rate 88 beats per minute. S1, S2 normal. LUNGS: Reveal some diffuse coarse rhonchi. Some bibasilar crackles noted. No wheezes. ABDOMEN: Obese. Bowel sounds are heard. EXTREMITIES are intact. There is lower extremity edema. No cyanosis or clubbing. SKIN: Without rash. NEUROLOGIC: Examination is brief but nonfocal. LABS: Reviewed. White count 7.7, hemoglobin 12.6, hematocrit 37.7, platelet count 129,000. Sodium 136, potassium 3.4, chloride 105, CO2 31. BUN and creatinine were 15 and 0.58. Albumin 2.5. Microbiology is currently negative. The most recent chest x-ray was done yesterday October 16 and shows low lung volumes, cardiomegaly, and left greater than right multifocal acute infiltrates consistent with his prior diagnosis of COVID-19 pneumonitis. CURRENT MEDICATIONS: Reviewed. The patient is on a number of medications including albuterol inhaler, Xanax, amlodipine, vitamin C, aspirin, Lipitor, Tessalon Perles, Symbicort, Wellbutrin, cefepime, vitamin D3, Lovenox, Pepcid, folic acid, Lasix, hydrocortisone 20 mg in the morning and 10 mg in the evening, insulin, multiple vitamins, Narcan, potassium chloride, thiamine, trazodone, vancomycin and zinc. ASSESSMENT: 1. Generalized weakness status post fall. The patient was unable to get up by himself and, therefore, EMS was called. He was brought back to the hospital after only one day at home. 2. Rule out adrenal insufficiency. Currently on Cortef 20 mg in the morning, 10 mg in the evening. 3. Pneumomediastinum secondary to forceful coughing, this was seen on CT scan. 4. COVID-19 pneumonia with acute hypoxemic respiratory failure with a prolonged hospitalization beginning on September 15 and ending on October 13. During that hospitalization the patient received oxygen supplementation, 5 days of Remdesivir, convalescent plasma, Decadron, Lovenox, vitamin C, vitamin D3, and zinc. 5. Morbid obesity. 6. Lifelong nonsmoker. 7. Lower extremity Dopplers negative without evidence of lower extremity deep venous thrombosis. 8. History of mild intermittent chronic bronchial asthma. 9. Hyperlipidemia. 10.Gastroesophageal reflux disease. 11.Prior history of asbestos exposure. 12.Chronic lower extremity edema. PLAN: The patient was started on Cortef. He seems a bit more awake and alert. More energy. He has been weaned down to 2 L. His antibiotics in my opinion could be de-escalated. His procalcitonin level was less than 0.25. Possible discharge in the next day or so. No additional recommendations are made. Prognosis is guarded. MMODL / IJN: [id number] /
--- NOTE | 2020-10-17 15:34 | PN ---
PROGRESS NOTE DATE OF SERVICE: 10/17/2020 This 59-year-old gentleman who was admitted with bilateral pneumonia, possibly hospital acquired pneumonia with acute hypoxic respiratory failure with possible sepsis is being closely monitored at this time. The patient had recent COVID-19 infection. The patient also had pneumomediastinum. The most recent chest x-ray which was reviewed personally by me showed low lung volumes and cardiomegaly with acute infiltrates. The patient is complaining of extreme weakness. The patient was recently discharged from the hospital. PAST MEDICAL HISTORY: Reviewed. REVIEW OF SYSTEMS: Cardiovascular system: No angina. Respiration as mentioned earlier. GI as mentioned earlier. : No dysuria. NERVOUS SYSTEM: No numbness or weakness. CURRENT MEDICATIONS: Reviewed include: Norvasc. Vitamin C, aspirin, Lipitor, Tessalon, Wellbutrin, cefepime, Lovenox. Pepcid, Cortef, Levemir. Doses reviewed. PHYSICAL EXAM: Patient is alert and oriented x3. Pulse 88, blood pressure 115/60, respiration 20, temperature 98 degrees, pulse ox 94% on 3 L. HEENT: Conjunctivae normal. NECK: No JVD. CARDIOVASCULAR: S1, S2. RESPIRATORY SYSTEM: Breath sounds diminished at the bases. Bilateral scattered rhonchi and expiratory wheezing. ABDOMEN: Soft, obese, nontender. LEGS are no edema, no swelling. NERVOUS SYSTEM: No focal deficits. LABS: WBC 7.2, hemoglobin 12.7, platelets are 129. Sodium 130, potassium 3.4. AST 61, ALT is 214, albumin is 2.5. ASSESSMENT: 1. Bilateral pneumonia possibly hospital-acquired pneumonia with acute hypoxic respiratory failure with possible sepsis present on admission. 2. Recent COVID-19 pneumonia with acute hypoxic respiratory failure. Treated with multiple modalities, including: Convalescent plasma as well as Remdesivir. 3. Extensive mediastinal emphysema. 4. Covid 19 presently positive. 5. Elevated lactic acid possibly secondary sepsis present on admission. 6. Elevated bilirubin, AST/ALT possibly hepatitis associated with Covid 19. 7. Elevated LDH. 8. Troponin 0.046, possible myocardial involvement about the COVID. Rule out acute oti-PH-yortjwb-elevation myocardial infarction. 9. Hypoalbuminemia with mild protein calorie malnutrition. 10.Elevated procalcitonin. 11.Hyponatremia. 12.Thrombocytopenia. 13.Increased WBC. 14.History of asthma, intermittent. 15.History of gastroesophageal reflux disease. 16.Hyperlipidemia. 17.History of pneumonia. 18.History of prostate disorder and cancer. 19.History of asbestos exposure. 20.History of appendectomy. 21.History of PTSD. 22.History of obesity with body mass index of 43.4. 23.FULL CODE. RECOMMENDATIONS AND DISCUSSION: I recommend to continue current medications, management and symptomatic treatment. Continue with broad-spectrum IV antibiotics. Closely follow with multiple consultants including Infectious Disease. The current cultures are negative at this time. The pneumomediastinum is thought to be not worsening at this time. We will continue to monitor, PT/OT evaluation, possible ECF rehab. Please note the patient has gone home and came back 1 time so we will keep monitoring the blood work as well. Otherwise prognosis guarded because of multiple complex medical issues and further recommendations to follow. Vancomycin level is also being monitored. MMODL / IJN: [id number] / MTDD
[2020-10-17 16:41] LABS: Glucose,Whole Blood 150 mg/dL (75-99)
[2020-10-17] MEDS: HYDROCORTISONE 10 MG TAB PO SCH (18:25)
[2020-10-17 20:27] LABS: Glucose,Whole Blood 175 mg/dL (75-99)
[2020-10-17] MEDS: SODIUM CHLORIDE 0.9% 1,000 ML IV SCH (20:48)
[2020-10-17] MEDS: ALPRAZolam 0.25 MG TAB PO PRN (20:48)
[2020-10-17] MEDS: traZODone HCL 50 MG TAB PO SCH (20:48)
[2020-10-17] MEDS: INSULIN DETEMIR (LEVEMIR) 100 UNIT/ML SYR SQ SCH (20:49)
--- NOTE | 2020-10-17 23:17 | PN ---
PROGRESS NOTE DATE OF SERVICE: 10/17/2020 REASON FOR FOLLOWUP: Pneumonia. INTERVAL HISTORY: The patient is currently afebrile. The patient is breathing more comfortably. The patient coughing decreased intensity. Less productive now. No chest pain. No nausea. No vomiting. No abdominal pain. No diarrhea. EXAMINATION: Blood pressure is 131/74 with a pulse of 88. Temperature 97.9. He is 92% on 3 L nasal cannula. General description is a middle-aged male lying in bed in no distress. Respiratory system: Unlabored breathing with decreased intense breath sounds. No wheeze. HEART: S1, S2. Regular rate and rhythm. Abdomen soft, no tenderness. LABORATORY DATA: Hemoglobin 12.1, white count 7.7, BUN of 15, creatinine 0.58. Sputum cultures currently pending. DIAGNOSTIC IMPRESSION AND PLAN: Patient admitted to the hospital with pneumonia, possible nosocomial. The patient has been admitted in the hospital. The patient is covered with cefepime and vancomycin to continue while waiting for sputum cultures to finalize. Continue supportive care. MMODL / IJN: [id number] /
[2020-10-18] MEDS: VANCOMYCIN 2,000 MG in SODIUM CHLORIDE 0.9% 500 ML 500 ML IVPB SCH (01:31)
[2020-10-18] MEDS: CEFEPIME 2 GM in SODIUM CHLORIDE 0.9% 100 ML IVPB SCH ×2 (04:01→16:08)
[2020-10-18] MEDS ORDERED: VANCOMYCIN TROUGH DUE 1 EACH MISC MISCELLANE ONE ×2 (06:00→08:00)
[2020-10-18 06:06] LABS: Glucose,Whole Blood 122 mg/dL (75-99)
[2020-10-18] MEDS: INSULIN ASPART (NovoLOG) 100 UNIT/ML VIAL SQ SCH ×4 (06:26→21:25)
[2020-10-18 06:49] LABS: Basophils % (A) 0 %; Eosinophils # (A) 0.3 k/uL (0-0.7); Eosinophils % (A) 4 %; HCT 34.6 % (39.0-53.0); HGB 11.6 gm/dL (13.0-17.5); Lymphocytes # (A) 0.8 k/uL (1.0-4.8); Lymphocytes % (A) 10 %; MCHC 33.4 g/dL (31.0-37.0); MCV 89.9 fL (80.0-100.0); Mean Platelet Volume 7.6; Monocytes # (A) 0.5 k/uL (0-1.0); Monocytes % (A) 6 %; Neutrophils # (A) 6.6 k/uL (1.3-7.7); Neutrophils % (A) 79 %; Platelet Count 135 k/uL (150-450); RBC 3.85 m/uL (4.30-5.90); RDW 14.3 % (11.5-15.5); WBC 8.3 k/uL (3.8-10.6)
[2020-10-18 06:55] LABS: ALT 172 U/L (4-49); AST 48 U/L (17-59); African American GFR (CKD) >90 (>60 ml/min/1.73 sqM); Albumin 2.3 g/dL (3.5-5.0); Alkaline Phosphatase 107 U/L (38-126); Anion Gap 1 mmol/L; Blood Urea Nitrogen 13 mg/dL (9-20); Calcium 8.1 mg/dL (8.4-10.2); Carbon Dioxide 30 mmol/L (22-30); Chloride 102 mmol/L (98-107); Glucose 109 mg/dL (74-99); Non-African American GFR(CKD) >90 (>60 ml/min/1.73 sqM); Potassium 3.5 mmol/L (3.5-5.1); Sodium 133 mmol/L (137-145); Total Protein 4.4 g/dL (6.3-8.2)
--- NOTE | 2020-10-18 07:02 | XR ---
EXAMINATION TYPE: XR chest 1V DATE OF EXAM: 10/18/2020 CLINICAL HISTORY: Difficulty breathing and covid pneumonia progress study. TECHNIQUE: Single AP portable upright view of the chest is obtained. COMPARISON: Chest x-ray from 2 days earlier and older studies FINDINGS: Low lung volumes with increased opacities greatest in the periphery bilaterally remain pre sent. Stable cardiomegaly. Surgical changes left osseous glenoid redemonstrated. IMPRESSION: Low lung volumes and cardiomegaly with left greater than right multifocal acute infiltrat es are all redemonstrated. Findings consistent with covid 19 infection. No significant change from mo st recent x-ray.
[2020-10-18] MEDS: ALBUTEROL HFA INHALER INHALATION SCH ×4 (07:43→20:04)
[2020-10-18] MEDS: SYMBICORT 160-4.5 MCG INHALER INHALATION SCH ×2 (07:49→20:05)
[2020-10-18] MEDS: ZINC SULFATE 220 MG CAP PO SCH (08:15)
[2020-10-18] MEDS: ASCORBIC ACID 500 MG TAB PO SCH (08:15)
[2020-10-18] MEDS: FUROSEMIDE 40 MG TAB PO SCH (08:15)
[2020-10-18] MEDS: amLODIPine 5 MG TAB PO SCH (08:15)
[2020-10-18] MEDS: buPROPion 75 MG TAB PO SCH (08:15)
[2020-10-18] MEDS: ATORVASTATIN 80 MG TAB PO SCH (08:15)
[2020-10-18] MEDS: POTASSIUM CHLORIDE ER 10 MEQ TAB.ER.PRT PO SCH (08:15)
[2020-10-18] MEDS: ASPIRIN 81 MG PO SCH (08:15)
[2020-10-18] MEDS: HYDROCORTISONE 20 MG TAB PO SCH (08:15)
[2020-10-18] MEDS: FAMOTIDINE 20 MG TAB PO SCH (08:15)
[2020-10-18] MEDS: CHOLECALCIFEROL 400 UNIT TAB PO SCH (08:15)
[2020-10-18] MEDS: ENOXAPARIN 40 MG/0.4 ML SYRINGE SQ SCH (08:16)
[2020-10-18] MEDS ORDERED: VANCOMYCIN 2,000 MG in SODIUM CHLORIDE 0.9% 500 ML 500 ML IVPB SCH (09:00)
[2020-10-18 11:38] LABS: Glucose,Whole Blood 138 mg/dL (75-99)
[2020-10-18] MEDS ORDERED: VANCOMYCIN 2,250 MG in SODIUM CHLORIDE 0.9% 500 ML 500 ML IVPB SCH (12:00)
--- NOTE | 2020-10-18 12:53 | PN ---
PROGRESS NOTE PULMONARY/CRITICAL CARE PROGRESS NOTE: DATE OF SERVICE: October 18, 2020. This is a 59-year-old gentleman who was admitted back on October 14. He was discharged from the hospital after a prolonged stay. He was admitted initially on September 15 and discharged on the . He was only home for one day. Apparently he was feeling very weak and falling, not being able to get up. EMS was called and he was brought back into the hospital. The patient is apparently going to be discharged to rehab. He is feeling much better from the pulmonary standpoint. He is down to 2-3 L nasal cannula. He does have a history of morbid obesity, chronic bronchial asthma, hyperlipidemia, GERD, previous asbestos exposure, and chronic lower extremity edema. His prior admission was for COVID-19 pneumonitis/pneumonia, with acute hypoxemic respiratory failure. On that admission, he received remdesivir, convalescent plasma, Decadron, vitamin C, vitamin D3, and zinc. PHYSICAL EXAMINATION: VITAL SIGNS: Current vital signs temperature 97.4, heart rate 93, respiratory rate 22, blood pressure 145/74, mean 97, 3 L saturation 93%. Appears in no acute distress. HEENT: Examination is grossly unremarkable. NECK: Supple. Full range of motion. No adenopathy. Neck veins are flat. CARDIOVASCULAR: Examination reveals regular rhythm and rate. Heart rate in the mid 80s. S1, S2 normal. Heart sounds are distant. LUNGS: A few scattered rhonchi. No wheezes. ABDOMEN: Soft, but obese. Bowel sounds are heard. No masses or tenderness. EXTREMITIES: Reveal some mild edema. No cyanosis or clubbing. SKIN: Without rash. NEUROLOGIC: Examination is nonfocal. LABORATORY DATA: White count 8.3, hemoglobin 11.6, hematocrit 34.6, platelet count 135,000. Sodium 133, potassium 3.5, chloride 102, CO2 30, anion gap is 1. BUN and creatinine were 13 and 0.54. Alkaline phosphatase is 107, albumin 2.3. ALT was 172. Microbiology including blood and sputum were negative. Suspicion for bacterial infection very low. IMAGING: A chest x-ray done October 18 shows bilateral multifocal infiltrates, left greater than right. There is no significant change from prior x-rays. CURRENT MEDICATIONS: Reviewed. The patient is on albuterol inhaler, Xanax, amlodipine, vitamin C, aspirin, Lipitor, Tessalon Perles, Symbicort, Wellbutrin, Maxipime, cholecalciferol, Lovenox, famotidine, folic acid, Lasix, hydrocortisone 20 mg q.a.m., 10 mg q.p.m. for suspected adrenal insufficiency, insulin, multivitamins, Narcan, K-Dur, thiamine, trazodone, vancomycin and zinc. Procalcitonin level was 0.18. ASSESSMENT: 1. Generalized weakness, status post fall. The patient was unable to get up off the floor by himself and therefore EMS was called and he was brought back to the hospital and admitted for weakness. 2. Possible adrenal insufficiency based on a relatively lower cortisol level. The patient is currently on Cortef 20 mg in the morning, 10 mg in the evening, and is feeling a bit better. 3. Pneumomediastinum, secondary to forceful coughing, seen on CT scan. 4. COVID-19 pneumonia with acute hypoxemic respiratory failure and a prolonged hospitalization beginning on September 15 and ending on October 13. During that hospitalization, the patient received oxygen supplementation, 5 days a remdesivir, convalescent plasma, Decadron, Lovenox, vitamin C, vitamin D3, and zinc. 5. Morbid obesity. 6. Lifelong nonsmoker. 7. No evidence of DVT on lower extremity Dopplers. 8. History of mild intermittent chronic bronchial asthma, stable. 9. Hyperlipidemia. 10.Gastroesophageal reflux disease. 11.Prior history of asbestos exposure. 12.Chronic lower extremity edema. PLAN: Antibiotics will be discontinued. Very low suspicion for bacterial infection. We will continue to follow. Possible discharge in the next day or so to rehab. No additional recommendations are made. Oxygen requirements have been pared down to 2-3 L/minute. MMODL / IJN: [id number] /
[2020-10-18] MEDS: FOLIC ACID 1 MG TAB PO SCH (12:56)
[2020-10-18] MEDS: MULTIVITAMINS, THERA 1 EACH TAB PO SCH (12:56)
[2020-10-18] MEDS: THIAMINE 100 MG TAB PO SCH (12:56)
[2020-10-18 16:46] LABS: Glucose,Whole Blood 166 mg/dL (75-99)
--- NOTE | 2020-10-18 18:29 | PN ---
PROGRESS NOTE DATE OF SERVICE: 10/18/2020 This 59-year-old gentleman who was admitted with bilateral pneumonia had recent COVID- 19 infection. The possibility of supra bacterial infection is considered. The microbiology is negative so far and the repeat COVID-19 came back positive. Patient on conservative line of management otherwise. The patient still has bilateral lung lesions, left more than the right, even though the right lower lobe area shows some clearance. Patient's pneumomediastinum history stable at this time. PAST MEDICAL HISTORY: Reviewed. REVIEW OF SYSTEMS: CARDIOVASCULAR SYSTEM: No angina. RESPIRATORY: As mentioned earlier. GI: As mentioned earlier. : No dysuria. NERVOUS SYSTEM: No numbness or weakness. CURRENT MEDICATIONS: Ventolin, Xanax, Norvasc, vitamin C, aspirin, Lipitor, Tessalon Perles, Symbicort, Lovenox. Other medications and doses reviewed. PHYSICAL EXAM: Patient is alert, oriented x3. The pulse is 90, blood pressure is 100/50, respiration 18, temperature 97.7, pulse ox 94% on 3 L. HEENT: Conjunctivae normal. Oral mucosa moist. NECK: No jugular venous distention. No lymph node enlargement. CARDIOVASCULAR: S1, S2, muffled. No S3, no S4, RESPIRATORY: Diminished breath sounds at the bases. A few scattered rhonchi and crackles. ABDOMEN: Soft, nontender. LEGS: No edema, no swelling. NERVOUS SYSTEM: No focal motor or sensory deficits. LABS: Hemoglobin 11.6, platelets 135. Sodium 133. ASSESSMENT: 1. Bilateral pneumonia possibly hospital-acquired pneumonia with acute hypoxic respiratory failure with possible sepsis, present on admission. 2. Recent COVID-19 pneumonia with acute hypoxic respiratory failure, treated with multiple modalities including convalescent plasma as well as Remdesivir. 3. Extensive mediastinal emphysema, present on admission. 4. COVID-19 presently positive. 5. Elevated lactic acid, possibly secondary to sepsis, present on admission. 6. Elevated bilirubin, AST and ALT possibly hepatitis associated with COVID-19. 7. Elevated LDH. 8. Troponin 0.046, possible associated myocardial involvement secondary to COVID-19. 9. Hypoalbuminemia with mild protein calorie malnutrition. 10.Elevated procalcitonin. 11.Hyponatremia. 12.Thrombocytopenia. 13.Increased WBC. 14.History of asthma, intermittent. 15.History of GERD. 16.Hyperlipidemia. 17.History of pneumonia. 18.History of prostate disorder and cancer. 19.History of asbestos exposure. 20.History of appendectomy. 21.History of posttraumatic stress disorder. 22.History of obesity with body mass index of 43.4. 23.FULL CODE. RECOMMENDATIONS AND DISCUSSION: I recommend to continue current management and continue with antibiotics. Continue the rest of medications. The patient is also seen by Cardiology. Recommend close followup with Cardiology in the outpatient setting. Otherwise, repeat labs and PT/OT evaluation, possible ECF rehab. The patient is complaining of some weakness and the last time the patient went home instead of rehab. Prognosis once again is extremely guarded because of multiple complex medical issues. Further recommendations to follow. MMODL / IJN: [id number] /
[2020-10-18] MEDS: HYDROCORTISONE 10 MG TAB PO SCH (18:40)
[2020-10-18 21:24] LABS: Glucose,Whole Blood 148 mg/dL (75-99)
[2020-10-18] MEDS: traZODone HCL 50 MG TAB PO SCH (21:24)
[2020-10-18] MEDS: SODIUM CHLORIDE 0.9% 1,000 ML IV SCH (21:25)
[2020-10-18] MEDS: INSULIN DETEMIR (LEVEMIR) 100 UNIT/ML SYR SQ SCH (21:25)
--- NOTE | 2020-10-18 22:26 | PN ---
PROGRESS NOTE DATE OF SERVICE: 10/18/2020 REASON FOR FOLLOWUP: Pneumonia. INTERVAL HISTORY: The patient is currently afebrile. The patient is breathing more comfortably. Patient denies having any chest pain. Cough decreased intensity. No nausea. No vomiting. No abdominal pain. No diarrhea. PHYSICAL EXAMINATION: Blood pressure is 100/55 with a pulse of 90, temperature 98.4. He is 90% on 3 L nasal cannula. General description is a middle-aged male up in the bed in no distress. Respiratory system: Unlabored breathing, decreased intensity of breath sounds. No wheeze. HEART: S1, S2. Regular rate and rhythm. ABDOMEN: Soft, no tenderness. LABS: Hemoglobin 11.1, White count 8.3, BUN of 13, creatinine 0.54. DIAGNOSTIC IMPRESSION AND PLAN: Patient with pneumonia with recent Covid 19 with prolonged hospital stay. Sputum has been negative for resistant pathogen. Cefepime to continue. We will discontinue the vancomycin and monitor clinical course closely. MMODL / IJN: [id number] /
[2020-10-19 06:17] LABS: Glucose,Whole Blood 126 mg/dL (75-99)
[2020-10-19] MEDS: INSULIN ASPART (NovoLOG) 100 UNIT/ML VIAL SQ SCH ×4 (06:40→21:50)
[2020-10-19 08:06] LABS: Basophils # (A) 0.1 k/uL (0-0.2); Basophils % (A) 1 %; Eosinophils # (A) 0.3 k/uL (0-0.7); Eosinophils % (A) 5 %; HCT 36.8 % (39.0-53.0); HGB 12.2 gm/dL (13.0-17.5); Lymphocytes # (A) 0.9 k/uL (1.0-4.8); Lymphocytes % (A) 13 %; MCH 29.9 pg (25.0-35.0); MCHC 33.1 g/dL (31.0-37.0); MCV 90.4 fL (80.0-100.0); Mean Platelet Volume 7.3; Monocytes # (A) 0.5 k/uL (0-1.0); Monocytes % (A) 7 %; Neutrophils # (A) 4.9 k/uL (1.3-7.7); Neutrophils % (A) 72 %; Platelet Count 160 k/uL (150-450); RBC 4.06 m/uL (4.30-5.90); RDW 14.3 % (11.5-15.5); WBC 6.8 k/uL (3.8-10.6)
[2020-10-19 08:25] LABS: ALT 164 U/L (4-49); AST 45 U/L (17-59); African American GFR (CKD) >90 (>60 ml/min/1.73 sqM); Albumin 2.6 g/dL (3.5-5.0); Alkaline Phosphatase 115 U/L (38-126); Anion Gap 0 mmol/L; Blood Urea Nitrogen 11 mg/dL (9-20); Calcium 8.6 mg/dL (8.4-10.2); Carbon Dioxide 34 mmol/L (22-30); Chloride 102 mmol/L (98-107); Glucose 114 mg/dL (74-99); Non-African American GFR(CKD) >90 (>60 ml/min/1.73 sqM); Potassium 3.7 mmol/L (3.5-5.1); Sodium 136 mmol/L (137-145); Total Protein 4.9 g/dL (6.3-8.2)
[2020-10-19] MEDS: ASCORBIC ACID 500 MG TAB PO SCH (08:37)
[2020-10-19] MEDS: FAMOTIDINE 20 MG TAB PO SCH (08:37)
[2020-10-19] MEDS: buPROPion 75 MG TAB PO SCH (08:37)
[2020-10-19] MEDS: HYDROCORTISONE 20 MG TAB PO SCH (08:38)
[2020-10-19] MEDS: POTASSIUM CHLORIDE ER 10 MEQ TAB.ER.PRT PO SCH (08:38)
[2020-10-19] MEDS: FUROSEMIDE 40 MG TAB PO SCH (08:38)
[2020-10-19] MEDS: ATORVASTATIN 80 MG TAB PO SCH (08:38)
[2020-10-19] MEDS: ASPIRIN 81 MG PO SCH (08:38)
[2020-10-19] MEDS: SYMBICORT 160-4.5 MCG INHALER INHALATION SCH ×2 (08:38→20:48)
[2020-10-19] MEDS: ZINC SULFATE 220 MG CAP PO SCH (08:38)
[2020-10-19] MEDS: amLODIPine 5 MG TAB PO SCH (08:38)
[2020-10-19] MEDS: CHOLECALCIFEROL 400 UNIT TAB PO SCH (08:38)
[2020-10-19] MEDS: ALBUTEROL HFA INHALER INHALATION SCH ×4 (08:38→20:48)
[2020-10-19] MEDS: ENOXAPARIN 40 MG/0.4 ML SYRINGE SQ SCH (08:38)
[2020-10-19 11:37] LABS: Glucose,Whole Blood 152 mg/dL (75-99)
[2020-10-19] MEDS: THIAMINE 100 MG TAB PO SCH (11:37)
[2020-10-19] MEDS: FOLIC ACID 1 MG TAB PO SCH (11:37)
[2020-10-19] MEDS: MULTIVITAMINS, THERA 1 EACH TAB PO SCH (11:37)
--- NOTE | 2020-10-19 15:10 | P.PN ---
Subjective Progress Note Date: 10/19/20 Principal diagnosis: Generalized weakness most likely secondary to recent prolonged hospital stay with Covid 19 pneumonitis. This is secondary to physical debility. This is a pleasant 59-year-old gentleman with a known history of morbid obesity, mild intermittent chronic bronchial asthma, hyperlipidemia, gastroesophageal reflux disease, asbestos exposure while in the , prostate cancer status post prostatectomy. He had been diagnosed with CoVID 19 pneumonitis and was an inpatient here from September 15 to 10/13/2020. He had a prolonged course requiring high oxygen including airflow and nonrebreather mask. He had received Remdesivir, convalescent plasma, steroids, Lovenox. He subsequently titrated down to 3 L nasal cannula and discharged home yesterday. Earlier this morning the patient had sustained a fall and had difficulty getting himself up. He also was having worsening shortness of breath and a very forceful cough. He developed chest discomfort. EMS was called and he was brought here to the emergency room approximately 9:45 this a.m. He did have some injury to his right knee. No acute fractures noted. Chest x-ray continues to show CoVID 19 p neumonitis with bilateral airspace disease. CT angiogram revealed evidence of pneumomediastinum with scattered small amounts of air extending towards the soft tissues of the neck. Scattered infiltrates within the periphery of the bilateral lungs consistent with atypical pneumonia. He is seen today in consultation on the selective care unit. He is currently sitting up at the bedside. Awake and alert in no acute distress. He is maintaining O2 saturations in the 90s on 5 L high flow nasal cannula. He is afebrile. Hemodynamically stable. White count 14.0. Hemoglobin 14.9. Platelet count 145. Lymphocytes 0.7. D-dimer 0.57. Sodium 136. Potassium 3.7. Creatinine 0.70. LDH 1054. C-reactive protein 5.1. Troponin 0.046. Initial lactic 3.0. Currently 1.9. He is receiving 0.9 normal saline at 75 ML's per hour. Reevaluated today on 10/19/2020, patient seems to be doing fairly well today, he is on few liters nasal cannula, and I have felt that the patient could be considered for discharge planning, consider rehabilitation/facility. director of volunteer services to address this issue, otherwise the patient will continue to have symptoms of weakness, and will end up being readmitted with weakness. I believe the patient may need few weeks course of rehabilitation. All his labs today inc luding CBC and basic metabolic profile liver profile all relatively normal. Chest x-ray is consistent with low lung volumes and recent multifocal infiltrates related to Covid 19 infection. Objective - Vital Signs Vital signs: Vital Signs Temp 98.2 F 10/19/20 11:33 Pulse 82 10/19/20 14:00 Resp 20 10/19/20 14:00 BP 129/76 10/19/20 11:33 Pulse Ox 92 L 10/19/20 11:33 Intake & Output 10/18/20 10/19/20 10/19/20 18:59 06:59 18:59 Intake Total 3634 792 9994 Output Total 1500 1300 300 Balance -480 -660 970 Weight 147.5 kg Intake: Intake, IV Titration 640 Amount Sodium Chloride 0.9% 1, 140 000 ml @ 20 mls/hr IV . Q24H [place] Rx#:[id number] Vancomycin 2,250 mg In 500 Sodium Chloride 0.9% 500 ml 500 ml @ 167 mls/hr IVPB Q12H [place] Rx#: [id number] Oral 1020 1270 Output: Urine 1500 1050 300 Urine/Stool Mix 250 Other: Voiding Method Urinal Urinal Urinal # Voids 1 # Bowel Movements 1 1 - Exam GENERAL EXAM: Alert, morbidly obese, pleasant 59-year-old gentleman, on 3 L nasal cannula. HEAD: Normocephalic. Atraumatic. ENT: PERRLA, EOMI, anicteric, no neck masses, no JVD, no stridor CHEST: No chest wall deformity. LUNGS: Equal air entry with faint crackles in the bilateral posterior bases. CVS: S1 and S2 normal with no audible murmur, regular rhythm. ABDOMEN: No hepatosplenomegaly, normal bowel sounds, no guarding or rigidity. SPINE: No scoliosis or deformity SKIN: No rashes CENTRAL NERVOUS SYSTEM: No focal deficits, tone is normal in all 4 extremities. EXTREMITIES: There is 1-2+ peripheral edema. No clubbing, no cyanosis. Peripheral pulses are intact. - Labs CBC & Chem 7: 10/19/20 07:27 10/19/20 07:27 Labs: Abnormal Lab Results - Last 24 Hours (Table) 10/18/20 10/18/2010/19/21 Range/Units 16:44 21:23 06:15 RBC (4.30-5.90) m/uL Hgb (13.0-17.5) gm/dL Hct (39.0-53.0) % Lymphocytes # (1.0-4.8) k/uL Sodium (137-145) mmol/L Carbon Dioxide (22-30) mmol/L Creatinine (0.66-1.25) mg/dL Glucose (74-99) mg/dL POC Glucose (mg/dL) 166 H 148 H 126 H (75-99) mg/dL ALT (4-49) U/L Total Protein (6.3-8.2) g/dL Albumin (3.5-5.0) g/dL 10/19/20 10/19/20 10/19/20 Range/Units 07:27 07:27 11:34 RBC 4.06 L (4.30-5.90) m/uL Hgb 12.2 L (13.0-17.5) gm/dL Hct 36.8 L (39.0-53.0) % Lymphocytes # 0.9 L (1.0-4.8) k/uL Sodium 136 L (137-145) mmol/L Carbon Dioxide 34 H (22-30) mmol/L Creatinine 0.55 L (0.66-1.25) mg/dL Glucose 114 H (74-99) mg/dL POC Glucose (mg/dL) 152 H (75-99) mg/dL ALT 164 H (4-49) U/L Total Protein 4.9 L (6.3-8.2) g/dL Albumin 2.6 L (3.5-5.0) g/dL Microbiology - Last 24 Hours (Table) 10/14/20 10:11 Blood Culture - Preliminary Blood No Growth after 120 hours 10/14/20 10:11 Blood Culture - Preliminary Blood No Growth after 120 hours 10/16/20 21:10 Gram Stain - Final Sputum Sputum Culture - Final Assessment and Plan Assessment: Impression: Generalized weakness secondary to physical debility most likely secondary to his prolonged hospital stay with covid 19 infection. Acute pneumomediastinum, not clinically significant and no intervention is necessary. This is secondary to forceful cough. Morbid obesity. Mild intermittent asthma, presently stable. History of asbestos exposure. Chronic venous stasis and chronic lower extremity edema. Recommendation: Reviewed and discussed his chest x-ray and his labs. Patient completed a course of treatment for his Covid 19 infection. Continue diuretics. director of volunteer services to reevaluate the patient and consider referral to rehab. Patient is cleared from our perspective for discharge planning once a bed is available in rehab. Time with Patient: Less than 30
--- NOTE | 2020-10-19 16:27 | PN ---
PROGRESS NOTE DATE OF SERVICE: 10/19/2020 This 59-year-old gentleman who was admitted with bilateral pneumonia and as well as possible acute pneumonia also had recent Covid 19 pneumonia. The patient admitted with significant pneumonia possibly healthcare associated and as well as pneumomediastinum. Patient was started with IV antibiotics. The cultures including sputum, blood culture negative so far. Multiple consultants are following the patient closely. Chest x-ray showed some improvement. The patient still has significant shortness of breath and generalized weakness also. PT/OT evaluating the patient for possible ECF rehab. Past medical history reviewed. REVIEW OF SYSTEMS: Cardiovascular system: No angina or palpitations. Respiratory: As mentioned earlier. GI as mentioned earlier. : No dysuria. NERVOUS SYSTEM: No numbness or weakness. CURRENT MEDICATIONS: Ventolin, Xanax, Norvasc, vitamin C, aspirin, Lipitor, Tessalon Perles, other medication doses reviewed. PHYSICAL EXAM: Patient is alert and oriented x3. Pulse 82. Blood pressure 129/76, respiration 20, temperature 98.2, pulse ox 92% on 3 L. HEENT: Conjunctivae normal. Neck: No JVD. CARDIOVASCULAR: S1, S2 muffled. RESPIRATIONS: Breath sounds diminished in the bases. Bilateral scattered rhonchi and crackles. ABDOMEN: Soft, obese, nontender. LEGS are no edema. No swelling. NERVOUS SYSTEM: No focal deficits. LABORATORY DATA: WBC 6.8, hemoglobin 12.2, sodium 136. ASSESSMENT: 1. Bilateral pneumonia with possible hospital-acquired pneumonia with acute hypoxic respiratory failure with possible sepsis present on admission. 2. Recent COVID-19 pneumonia with acute hypoxic respiratory failure. Treated with multiple modalities, including convalescent plasma as well as Remdesivir. 3. Extensive mediastinal emphysema, present on admission. 4. Covid 19 presently positive. 5. Elevated lactic acid, possibly secondary to sepsis, present on admission. 6. Elevated bilirubin, AST/ALT possibly hepatitis associated with Covid 19. 7. Elevated LDH. 8. Troponin 0.046, possibly associated with myocardial involvement secondary to COVID- 19. 9. Hypoalbuminemia with mild protein calorie malnutrition. 10.Elevated procalcitonin. 11.Hyponatremia. 12.Thrombocytopenia. 13.Increased WBC. 14.History of asthma, intermittent. 15.History of gastroesophageal reflux disease. 16.Hyperlipidemia. 17.History of pneumonia. 18.History of prostate disorder, cancer. 19.History of asbestos exposure. 20.History of appendectomy. 21.History of posttraumatic stress disorder. 22.Obesity with body mass index of 43.4. 23.FULL CODE. RECOMMENDATIONS AND DISCUSSION: I recommend to continue current management. Continue monitoring. Continue the broad- spectrum IV antibiotics, bronchodilators. Continue rest of medications. PT, OT evaluation, possible ECF rehab. Guarded prognosis because of multiple complex medical issues. Further recommendations to follow. MMODL / IJN: [id number] /
[2020-10-19 17:12] LABS: Glucose,Whole Blood 159 mg/dL (75-99)
[2020-10-19] MEDS: HYDROCORTISONE 10 MG TAB PO SCH (18:19)
[2020-10-19 20:25] LABS: Glucose,Whole Blood 137 mg/dL (75-99)
[2020-10-19] MEDS: ALPRAZolam 0.25 MG TAB PO PRN (21:50)
[2020-10-19] MEDS: INSULIN DETEMIR (LEVEMIR) 100 UNIT/ML SYR SQ SCH (21:50)
[2020-10-19] MEDS: traZODone HCL 50 MG TAB PO SCH (21:50)
[2020-10-19] MEDS: SODIUM CHLORIDE 0.9% 1,000 ML IV SCH (21:52)
--- NOTE | 2020-10-19 23:41 | PN ---
PROGRESS NOTE DATE OF SERVICE: 10/19/2020 REASON FOR FOLLOWUP: Pneumonia. INTERVAL HISTORY: The patient is currently afebrile. The patient is breathing comfortably. Patient denies having any chest pain. No shortness of breath or cough. No abdominal pain or diarrhea. PHYSICAL EXAMINATION: Blood pressure 134/76, pulse of 91, temperature 98.1. He is 94% on 2 L nasal cannula. General description is a middle-aged male up in the bed in no distress. Respiratory system: Unlabored breathing, decreased breath sounds in the base, with no wheeze. Heart S1, S2. Regular rate and rhythm. Abdomen soft, no tenderness. LABS: Hemoglobin is 12.1, white count 6.9, BUN of 11, creatinine 0.55. DIAGNOSTIC IMPRESSION AND PLAN: Patient admitted to hospital with shortness of breath and cough concerning for pneumonia. Patient's blood culture negative. Sputum was usual respiratory shivam. Antibiotic has been discontinued by pulmonary services. Blood culture negative. The patient monitored closely off antibiotic therapy. Continue supportive care. MMODL / IJN: [id number] /
[2020-10-20 06:14] LABS: Glucose,Whole Blood 101 mg/dL (75-99)
[2020-10-20] MEDS: INSULIN ASPART (NovoLOG) 100 UNIT/ML VIAL SQ SCH ×4 (06:42→21:07)
[2020-10-20] MEDS: FAMOTIDINE 20 MG TAB PO SCH (08:22)
[2020-10-20] MEDS: ZINC SULFATE 220 MG CAP PO SCH (08:22)
[2020-10-20] MEDS: buPROPion 75 MG TAB PO SCH (08:22)
[2020-10-20] MEDS: ATORVASTATIN 80 MG TAB PO SCH (08:22)
[2020-10-20] MEDS: POTASSIUM CHLORIDE ER 10 MEQ TAB.ER.PRT PO SCH (08:23)
[2020-10-20] MEDS: ENOXAPARIN 40 MG/0.4 ML SYRINGE SQ SCH (08:23)
[2020-10-20] MEDS: CHOLECALCIFEROL 400 UNIT TAB PO SCH (08:23)
[2020-10-20] MEDS: HYDROCORTISONE 20 MG TAB PO SCH (08:23)
[2020-10-20] MEDS: FUROSEMIDE 40 MG TAB PO SCH (08:23)
[2020-10-20] MEDS: ASPIRIN 81 MG PO SCH (08:23)
[2020-10-20] MEDS: amLODIPine 5 MG TAB PO SCH (08:23)
[2020-10-20] MEDS: ASCORBIC ACID 500 MG TAB PO SCH (08:23)
[2020-10-20] MEDS: ALBUTEROL HFA INHALER INHALATION SCH ×4 (08:26→21:49)
[2020-10-20] MEDS: SYMBICORT 160-4.5 MCG INHALER INHALATION SCH ×2 (08:26→21:49)
[2020-10-20 08:35] LABS: Basophils % (A) 0 %; Eosinophils # (A) 0.2 k/uL (0-0.7); Eosinophils % (A) 3 %; HCT 37.4 % (39.0-53.0); HGB 12.3 gm/dL (13.0-17.5); Lymphocytes # (A) 0.8 k/uL (1.0-4.8); Lymphocytes % (A) 12 %; MCH 29.6 pg (25.0-35.0); MCHC 32.8 g/dL (31.0-37.0); MCV 90.3 fL (80.0-100.0); Mean Platelet Volume 7.9; Monocytes # (A) 0.5 k/uL (0-1.0); Monocytes % (A) 7 %; Neutrophils % (A) 73 %; Platelet Count 199 k/uL (150-450); RBC 4.14 m/uL (4.30-5.90); RDW 14.6 % (11.5-15.5); WBC 6.8 k/uL (3.8-10.6)
[2020-10-20 08:45] LABS: ALT 150 U/L (4-49); AST 46 U/L (17-59); African American GFR (CKD) >90 (>60 ml/min/1.73 sqM); Albumin 2.8 g/dL (3.5-5.0); Alkaline Phosphatase 129 U/L (38-126); Anion Gap 3 mmol/L; Blood Urea Nitrogen 10 mg/dL (9-20); C Reactive Protein 45.1 mg/L (<10.0); Calcium 8.7 mg/dL (8.4-10.2); Carbon Dioxide 32 mmol/L (22-30); Chloride 103 mmol/L (98-107); Glucose 132 mg/dL (74-99); Non-African American GFR(CKD) >90 (>60 ml/min/1.73 sqM); Potassium 3.6 mmol/L (3.5-5.1); Sodium 138 mmol/L (137-145); Total Bilirubin 0.9 mg/dL (0.2-1.3); Total Protein 5.1 g/dL (6.3-8.2)
[2020-10-20 11:55] LABS: Glucose,Whole Blood 127 mg/dL (75-99)
[2020-10-20] MEDS: FOLIC ACID 1 MG TAB PO SCH (13:18)
[2020-10-20] MEDS: MULTIVITAMINS, THERA 1 EACH TAB PO SCH (13:18)
[2020-10-20] MEDS: THIAMINE 100 MG TAB PO SCH (13:18)
[2020-10-20 13:51] VITALS: BMI 44.1
[2020-10-20 16:51] LABS: Glucose,Whole Blood 133 mg/dL (75-99)
[2020-10-20] MEDS: SODIUM CHLORIDE 0.9% 1,000 ML IV SCH (17:22)
[2020-10-20] MEDS: HYDROCORTISONE 10 MG TAB PO SCH (17:29)
[2020-10-20 20:33] LABS: Glucose,Whole Blood 200 mg/dL (75-99)
[2020-10-20] MEDS: ALPRAZolam 0.25 MG TAB PO PRN (21:07)
[2020-10-20] MEDS: INSULIN DETEMIR (LEVEMIR) 100 UNIT/ML SYR SQ SCH (21:07)
[2020-10-20] MEDS: traZODone HCL 50 MG TAB PO SCH (21:07)
--- NOTE | 2020-10-20 23:18 | PN ---
PROGRESS NOTE DATE OF SERVICE: 10/20/2020 REASON FOR FOLLOWUP: Pneumonia. INTERVAL HISTORY: The patient is currently afebrile. The patient is breathing more comfortably. The patient denies having any chest pain. Continues to have a cough; not bringing up any sputum. No nausea, no vomiting, no abdominal pain or diarrhea. PHYSICAL EXAMINATION: Blood pressure 107/73 with a pulse of 94, temperature 98.1. He is 94% on 3 L nasal cannula. General description is a middle-aged male up in the bed in no distress. RESPIRATORY SYSTEM: Unlabored breathing with decreased intensity of breath sounds. No wheeze. HEART: S1, S2. Regular rate and rhythm. ABDOMEN: Soft. No tenderness. LABS: CRP is 45.1. Pro-calcitonin mildly elevated at 0.15. DIAGNOSTIC IMPRESSION AND PLAN: Patient admitted to hospital with increasing shortness of breath in this patient who did have evidence of a new infiltrate, sputum has been negative, blood culture negative. Currently being monitored off antibiotic therapy. Continue with supportive care. MMODL / IJN: [id number] / RACHEAL
[2020-10-21 07:16] LABS: Glucose,Whole Blood 126 mg/dL (75-99)
[2020-10-21] MEDS: INSULIN ASPART (NovoLOG) 100 UNIT/ML VIAL SQ SCH ×4 (07:23→20:39)
[2020-10-21] MEDS: FAMOTIDINE 20 MG TAB PO SCH (08:07)
[2020-10-21] MEDS: ASPIRIN 81 MG PO SCH (08:07)
[2020-10-21] MEDS: POTASSIUM CHLORIDE ER 10 MEQ TAB.ER.PRT PO SCH (08:08)
[2020-10-21] MEDS: amLODIPine 5 MG TAB PO SCH (08:08)
[2020-10-21] MEDS: ENOXAPARIN 40 MG/0.4 ML SYRINGE SQ SCH (08:08)
[2020-10-21] MEDS: buPROPion 75 MG TAB PO SCH (08:08)
[2020-10-21] MEDS: ZINC SULFATE 220 MG CAP PO SCH (08:08)
[2020-10-21] MEDS: FUROSEMIDE 40 MG TAB PO SCH (08:08)
[2020-10-21] MEDS: SYMBICORT 160-4.5 MCG INHALER INHALATION SCH ×2 (08:08→19:17)
[2020-10-21] MEDS: ALBUTEROL HFA INHALER INHALATION SCH ×4 (08:08→19:17)
[2020-10-21] MEDS: ATORVASTATIN 80 MG TAB PO SCH (08:08)
[2020-10-21] MEDS: ASCORBIC ACID 500 MG TAB PO SCH (08:08)
[2020-10-21] MEDS: CHOLECALCIFEROL 400 UNIT TAB PO SCH (08:09)
[2020-10-21] MEDS: HYDROCORTISONE 20 MG TAB PO SCH (08:09)
[2020-10-21 12:37] LABS: Glucose,Whole Blood 149 mg/dL (75-99)
[2020-10-21] MEDS: THIAMINE 100 MG TAB PO SCH (12:54)
[2020-10-21] MEDS: MULTIVITAMINS, THERA 1 EACH TAB PO SCH (12:54)
[2020-10-21] MEDS: FOLIC ACID 1 MG TAB PO SCH (12:54)
[2020-10-21] MEDS ORDERED: LOPERAMIDE 2 MG CAP PO PRN (14:46)
[2020-10-21] MEDS: VANCOMYCIN ORAL SOLUTION 250 MG/5 ML BOTTLE PO SCH ×2 (15:44→23:00)
[2020-10-21] MEDS: CHERRY FLAVOR 60 ML BOTTLE PO SCH ×2 (15:44→23:00)
--- NOTE | 2020-10-21 16:34 | P.PN ---
Subjective Progress Note Date: 10/20/20 This is a 59-year-old male who was recently admitted with bilateral pneumonia as well as possible acute pneumonia who had also recently underwent extended hospitalization with Covid 19 pneumonia. Patient was admitted with significant pneumonia possibly healthcare associated as well as pneumomediastinum. Patient was on IV antibiotics being followed by infectious disease. Antibiotics have since been discontinued and being closely monitored off of antibiotics. Pulmonary is following as well. Patient continues to be significantly short of breath with exertion and continues to be weak. Patient was seen and evaluated by PT/OT and became severely dyspneic in the low 80s. Patient is quite weak and requiring a walker with minimal exertion. Case management and social work following for possible ECF placement Review of systems: Constitutional: No reports of fatigue, fever, or chills, reports anxiety Cardiovascular: No reports of chest pain or palpitations Respiratory: Reports shortness of breath, cough GI: No reports of nausea, vomiting, or diarrhea : No reports of dysuria or retention Neurovascular: Reports weakness All medications have been reviewed Active Medications Albuterol Sulfate (Albuterol Hfa Inhaler) 2 puff INHALATION RT-QID [facility] Last Admin: 10/21/20 15:52 Dose: 2 puff Documented by: Alprazolam (Alprazolam 0.25 Mg Tab) 0.25 mg PO HS PRN PRN Reason: Anxiety Last Admin: 10/20/20 21:07 Dose: 0.25 mg Documented by: Amlodipine Besylate (Amlodipine 5 Mg Tab) 5 mg PO DAILY [facility] Last Admin: 10/21/20 08:08 Dose: 5 mg Documented by: Ascorbic Acid (Ascorbic Acid 500 Mg Tab) 1,000 mg PO DAILY [facility] Last Admin: 10/21/20 08:08 Dose: 1,000 mg Documented by: Aspirin (Aspirin 81 Mg) 81 mg PO DAILY [facility] Last Admin: 10/21/20 08:07 Dose: 81 mg Documented by: Atorvastatin Calcium (Atorvastatin 80 Mg Tab) 80 mg PO DAILY [facility] Last Admin: 10/21/20 08:08 Dose: 80 mg Documented by: Benzonatate (Benzonatate 100 Mg Cap) 200 mg PO TID PRN PRN Reason: Cough Budesonide/Formoterol Fumarate (Symbicort 160-4.5 Mcg Inhaler) 2 puff INHALA TION RT-BID [facility] Last Admin: 10/21/20 08:08 Dose: 2 puff Documented by: Bupropion HCl (Bupropion 75 Mg Tab) 150 mg PO DAILY [facility] Last Admin: 10/21/20 08:08 Dose: 150 mg Documented by: Hills Syrup (Hills Flavor 60 Ml Bottle) 5 ml PO Q6HR [facility] Last Admin: 10/21/20 15:44 Dose: 5 ml Documented by: Cholecalciferol (Cholecalciferol 400 Unit Tab) 400 unit PO DAILY [facility] Last Admin: 10/21/20 08:09 Dose: 400 unit Documented by: Enoxaparin Sodium (Enoxaparin 40 Mg/0.4 Ml Syringe) 40 mg SQ DAILY [facility] Last Admin: 10/21/20 08:08 Dose: 40 mg Documented by: Famotidine (Famotidine 20 Mg Tab) 40 mg PO DAILY [facility] Last Admin: 10/21/20 08:07 Dose: 40 mg Documented by: Folic Acid (Folic Acid 1 Mg Tab) 1 mg PO DAILY@1200 [facility] Last Admin: 10/21/20 12:54 Dose: 1 mg Documented by: Furosemide (Furosemide 40 Mg Tab) 40 mg PO DAILY [facility] Last Admin: 10/21/20 08:08 Dose: 40 mg Documented by: Hydrocortisone (Hydrocortisone 10 Mg Tab) 10 mg PO DAILY@1900 [facility] Last Admin: 10/20/20 17:29 Dose: 10 mg Documented by: Hydrocortisone (Hydrocortisone 20 Mg Tab) 20 mg PO DAILY [facility] Last Admin: 10/21/20 08:09 Dose: 20 mg Documented by: Sodium Chloride (Saline 0.9%) 1,000 mls @ 20 mls/hr IV .Q24H [facility] Last Admin: 10/20/20 17:22 Dose: Not Given Documented by: Insulin Aspart (Insulin Aspart (Novolog) 100 Unit/Ml Vial) 0 unit SQ [facility]; Protocol Last Admin: 10/21/20 12:54 Dose: 1 unit Documented by: Insulin Detemir (Insulin Detemir (Levemir) 100 Unit/Ml Syr) 30 unit SQ HS [facility] Last Admin: 10/20/20 21:07 Dose: 30 unit Documented by: Loperamide HCl (Loperamide 2 Mg Cap) 2 mg PO QID PRN PRN Reason: Diarrhea Multivitamins (Multivitamins, Thera 1 Each Tab) 1 each PO DAILY@1200 [facility] Last Admin: 10/21/20 12:54 Dose: 1 each Documented by: Naloxone HCl (Naloxone 0.4 Mg/Ml 1 Ml Vial) 0.2 mg IV Q2M PRN PRN Reason: Opioid Reversal Potassium Chloride (Potassium Chloride Er 10 Meq Tab.Er.Prt) 10 meq PO DAILY [facility] Last Admin: 10/21/20 08:08 Dose: 10 meq Documented by: Thiamine HCl (Thiamine 100 Mg Tab) 100 mg PO DAILY@1200 [facility] Last Admin: 10/21/20 12:54 Dose: 100 mg Documented by: Trazodone HCl (Trazodone Hcl 50 Mg Tab) 50 mg PO HS [facility] Last Admin: 10/20/20 21:07 Dose: 50 mg Documented by: Vancomycin HCl (Vancomycin Oral Solution 250 Mg/5 Ml Bottle) 250 mg PO Q6HR [facility] Last Admin: 10/21/20 15:44 Dose: 250 mg Documented by: Zinc Sulfate (Zinc Sulfate 220 Mg Cap) 220 mg PO DAILY [facility] Last Admin: 10/21/20 08:08 Dose: 220 mg Documented by: Objective - Vital Signs Vital signs: Vital Signs Temp 98.0 F 10/21/20 11:00 Pulse 96 10/21/20 11:00 Resp 19 10/21/20 11:00 BP 126/77 10/21/20 11:00 Pulse Ox 92 L 10/21/20 11:00 Intake & Output 10/20/20 10/21/20 10/21/20 18:59 06:59 18:59 Intake Total 2080 360 Output Total 825 400 400 Balance 1255 -40 -400 Weight 147.5 kg Intake: Intake, IV Titration 0 Amount Sodium Chloride 0.9% 1, 0 000 ml @ 20 mls/hr IV . Q24H [facility] Rx#:[id number] Oral 2080 360 Output: Urine 825 400 400 Other: Voiding Method Urinal # Voids 2 1 2 # Bowel Movements 3 2 3 - Exam Gen: This is a 59-year-old male awake, alert and oriented 3, well-developed, well-nourished, obese. HEENT: Head is atraumatic, normocephalic. Pupils equal, round. Sclerae is anicteric. NECK: Supple. No JVD. No lymphadenopathy. No thyromegaly. LUNGS: Diminished breath sounds bilaterally with no wheezing or rhonchi noted. No intercostal retractions. HEART: S1 1, S2 are muffled ABDOMEN: Soft. Obese. Bowel sounds are present. No masses. No tenderness. EXTREMITIES: No pedal edema. No calf tenderness. Left knee pain on palpation NEUROLOGICAL: Patient is awake, alert and oriented x3. Cranial nerves 2 through 12 are grossly intact. Diffusely weak - Labs CBC & Chem 7: 10/20/20 07:43 10/20/20 07:43 Labs: Abnormal Lab Results - Last 24 Hours (Table) 10/20/20 10/20/20 10/21/20 Range/Units 16:48 20:32 07:11 POC Glucose (mg/dL) 133 H 200 H 126 H (75-99) mg/dL C. difficile (EIA) Intrp (Negative) 10/21/20 10/21/20 Range/Units 10:09 12:31 POC Glucose (mg/dL) 149 H (75-99) mg/dL C. difficile (EIA) Intrp Positive A (Negative) Microbiology - Last 24 Hours (Table) 10/14/20 10:11 Blood Culture - Final Blood No Growth after 144 hours 10/14/20 10:11 Blood Culture - Final Blood No Growth after 144 hours Assessment and Plan Assessment: Bilateral pneumonia with possible hospital-acquired pneumonia with acute hypoxic respiratory failure with possible sepsis, present on admission Recent Covid 19 pneumonia with acute hypoxic respiratory failure. Treated with multiple modalities including convalescent plasma as well as Remdesivir mediastinal emphysema, present on admission Covid 19 presently positive Elevated lactic acid, possibly secondary to sepsis, present on admission Elevated bilirubin, ALT AST, possibility of hepatitis associated with Covid 19 Elevated LDH Troponin 0.046, possibly associated with myocardial involvement secondary to Covid 19 Hypoalbuminemia with mild protein calorie malnutrition Elevated pro calcitonin Hyponatremia Thrombocytopenia next line increased white blood count History of asthma, intermittent next line history of GERD Hyperlipidemia next line history of pneumonia History of prostate disorder, cancer next line history of asbestos exposure History of appendectomy History of posterior Mattix stress disorder Body mass index of 43.4 obesity Full code Recommendations and discussion: Recommend continue current medications, management, and symptomatic treatment. Patient has been off IV antibiotics and will continue to monitor closely. Multiple medical consultations following. Patient is working with PT/OT with the possibility of ECF as patient continues to be quite weak and unsteady with gait. Patient continues to be severely dyspneic and oxygen saturations drop int o the low 80s with minimal exertion. Will continue to monitor closely and repeat a.m. labs. Further recommendations to follow. Awaiting for authorization and accepting facility for ECF. She will discharge in 24-48 hours.
--- NOTE | 2020-10-21 16:40 | P.PN ---
Subjective Progress Note Date: 10/21/20 This is a 59-year-old male who was recently admitted with bilateral pneumonia as well as possible acute pneumonia who had also recently underwent extended hospitalization with Covid 19 pneumonia. Patient was admitted with significant pneumonia possibly healthcare associated as well as pneumomediastinum. Patient was on IV antibiotics being followed by infectious disease. Antibiotics have since been discontinued and being closely monitored off of antibiotics. Pulmonary is following as well. Patient continues to be significantly short of breath with exertion and continues to be weak. Patient was seen and evaluated by PT/OT and became severely dyspneic in the low 80s. Patient is quite weak and requiring a walker with minimal exertion. Case management and social work following for possible ECF placement 10/21/2020 Patient is seen and evaluated and follow-up and continues to be closely sona tored. Patient continues to be dyspneic with exertion and is currently maintained on 3-4 L of oxygen via nasal cannula. Multiple medical consultations following. Per nursing staff patient had multiple episodes of diarrhea today and a stool sample is sent and is positive for C. diff. Patient will be started on oral vancomycin 4 times daily and will continue to monitor. Patient has been accepted to [facility] for continued PT/OT therapy although awaiting for insurance authorization. Case management and social work following and working on discharge planning. Review of systems: Constitutional: No reports of fatigue, fever, or chills, reports anxiety Cardiovascular: No reports of chest pain or palpitations Respiratory: Reports shortness of breath, cough GI: No reports of nausea, vomiting, reports multiple episodes of diarrhea : No reports of dysuria or retention Neurovascular: Reports weakness All medications have been reviewed Active Medications Albuterol Sulfate (Albuterol Hfa Inhaler) 2 puff INHALATION RT-QID [facility] Last Admin: 10/21/20 15:52 Dose: 2 puff Documented by: Alprazolam (Alprazolam 0.25 Mg Tab) 0.25 mg PO HS PRN PRN Reason: Anxiety Last Admin: 10/20/20 21:07 Dose: 0.25 mg Documented by: Amlodipine Besylate (Amlodipine 5 Mg Tab) 5 mg PO DAILY [facility] Last Admin: 10/21/20 08:08 Dose: 5 mg Documented by: Ascorbic Acid (Ascorbic Acid 500 Mg Tab) 1,000 mg PO DAILY [facility] Last Admin: 10/21/20 08:08 Dose: 1,000 mg Documented by: Aspirin (Aspirin 81 Mg) 81 mg PO DAILY [facility] Last Admin: 10/21/20 08:07 Dose: 81 mg Documented by: Atorvastatin Calcium (Atorvastatin 80 Mg Tab) 80 mg PO DAILY [facility] Last Admin: 10/21/20 08:08 Dose: 80 mg Documented by: Benzonatate (Benzonatate 100 Mg Cap) 200 mg PO TID PRN PRN Reason: Cough Budesonide/Formoterol Fumarate (Symbicort 160-4.5 Mcg Inhaler) 2 puff INHALATION RT-BID [facility] Last Admin: 10/21/20 08:08 Dose: 2 puff Documented by: Bupropion HCl (Bupropion 75 Mg Tab) 150 mg PO DAILY [facility] Last Admin: 10/21/20 08:08 Dose: 150 mg Documented by: Hills Syrup (Hills Flavor 60 Ml Bottle) 5 ml PO Q6HR [facility] Last Admin: 10/21/20 15:44 Dose: 5 ml Documented by: Cholecalciferol (Cholecalciferol 400 Unit Tab) 400 unit PO DAILY [facility] Last Admin: 10/21/20 08:09 Dose: 400 unit Documented by: Enoxaparin Sodium (Enoxaparin 40 Mg/0.4 Ml Syringe) 40 mg SQ DAILY [facility] Last Admin: 10/21/20 08:08 Dose: 40 mg Documented by: Famotidine (Famotidine 20 Mg Tab) 40 mg PO DAILY [facility] Last Admin: 10/21/20 08:07 Dose: 40 mg Documented by: Folic Acid (Folic Acid 1 Mg Tab) 1 mg PO DAILY@1200 [facility] Last Admin: 10/21/20 12:54 Dose: 1 mg Documented by: Furosemide (Furosemide 40 Mg Tab) 40 mg PO DAILY [facility] Last Admin: 10/21/20 08:08 Dose: 40 mg Documented by: Hydrocortisone (Hydrocortisone 10 Mg Tab) 10 mg PO DAILY@1900 [facility] Last Admin: 10/20/20 17:29 Dose: 10 mg Documented by: Hydrocortisone (Hydrocortisone 20 Mg Tab) 20 mg PO DAILY [facility] Last Admin: 10/21/20 08:09 Dose: 20 mg Documented by: Sodium Chloride (Saline 0.9%) 1,000 mls @ 20 mls/hr IV .Q24H [facility] Last Admin: 10/20/20 17:22 Dose: Not Given Documented by: Insulin Aspart (Insulin Aspart (Novolog) 100 Unit/Ml Vial) 0 unit SQ [facility]; Protocol Last Admin: 10/21/20 12:54 Dose: 1 unit Documented by: Insulin Detemir (Insulin Detemir (Levemir) 100 Unit/Ml Syr) [address] [facility] Last Admin: 10/20/20 21:07 Dose: 30 unit Documented by: Loperamide HCl (Loperamide 2 Mg Cap) 2 mg PO QID PRN PRN Reason: Diarrhea Multivitamins (Multivitamins, Thera 1 Each Tab) 1 each PO DAILY@1200 [facility] Last Admin: 10/21/20 12:54 Dose: 1 each Documented by: Naloxone HCl (Naloxone 0.4 Mg/Ml 1 Ml Vial) 0.2 mg IV Q2M PRN PRN Reason: Opioid Reversal Potassium Chloride (Potassium Chloride Er 10 Meq Tab.Er.Prt) 10 meq PO DAILY [facility] Last Admin: 10/21/20 08:08 Dose: 10 meq Documented by: Thiamine HCl (Thiamine 100 Mg Tab) 100 mg PO DAILY@1200 [facility] Last Admin: 10/21/20 12:54 Dose: 100 mg Documented by: Trazodone HCl (Trazodone Hcl 50 Mg Tab) [address] [facility] Last Admin: 10/20/20 21:07 Dose: 50 mg Documented by: Vancomycin HCl (Vancomycin Oral Solution 250 Mg/5 Ml Bottle) 250 mg PO Q6HR [facility] Last Admin: 10/21/20 15:44 Dose: 250 mg Documented by: Zinc Sulfate (Zinc Sulfate 220 Mg Cap) 220 mg PO DAILY [facility] Last Admin: 10/21/20 08:08 Dose: 220 mg Documented by: Objective - Vital Signs Vital signs: Vital Signs Temp 98.0 F 10/21/20 11:00 Pulse 96 10/21/20 11:00 Resp 19 10/21/20 11:00 BP 126/77 10/21/20 11:00 Pulse Ox 92 L 10/21/20 11:00 Intake & Output 10/20/20 10/21/20 10/21/20 18:59 06:59 18:59 Intake Total 2080 360 Output Total 825 400 400 Balance 1255 -40 -400 Weight 147.5 kg Intake: Intake, IV Titration 0 Amount Sodium Chloride 0.9% 1, 0 000 ml @ 20 mls/hr IV . Q24H [facility] Rx#:[id number] Oral 2080 360 Output: Urine 825 400 400 Other: Voiding Method Urinal # Voids 2 1 2 # Bowel Movements 3 2 3 - Exam Gen: This is a 59-year-old male awake, alert and oriented 3, well-developed, well-nourished, obese. Temp is 98F, pulse is 96, respirations are 19, blood pressure is 126/77, oxygen saturation is 92% on 2 L via nasal cannula. HEENT: Head is atraumatic, normocephalic. Pupils equal, round. Sclerae is anicteric. NECK: Supple. No JVD. No lymphadenopathy. No thyromegaly. LUNGS: Diminished breath sounds bilaterally with no wheezing or rhonchi noted. No intercostal retractions. HEART: S1 1, S2 are muffled ABDOMEN: Soft. Obese. Bowel sounds are present. No masses. No tenderness. EXTREMITIES: No pedal edema. No calf tenderness. Left knee pain on palpation NEUROLOGICAL: Patient is awake, alert and oriented x3. Cranial nerves 2 through 12 are grossly intact. Diffusely weak - Labs CBC & Chem 7: 10/20/20 07:43 10/20/20 07:43 Labs: Abnormal Lab Results - Last 24 Hours (Table) 10/20/20 10/20/20 10/21/20 Range/Units 16:48 20:32 07:11 POC Glucose (mg/dL) 133 H 200 H 126 H (75-99) mg/dL C. difficile (EIA) Intrp (Negative) 10/21/20 10/21/20 Range/Units 10:09 12:31 POC Glucose (mg/dL) 149 H (75-99) mg/dL C. difficile (EIA) Intrp Positive A (Negative) Microbiology - Last 24 Hours (Table) 10/14/20 10:11 Blood Culture - Final Blood No Growth after 144 hours 10/14/20 10:11 Blood Culture - Final Blood No Growth after 144 hours Assessment and Plan Assessment: Bilateral pneumonia with possible hospital-acquired pneumonia with acute hypoxic respiratory failure with possible sepsis, present on admission Diarrhea and was positive for Clostridium difficile Recent Covid 19 pneumonia with acute hypoxic respiratory failure. Treated with multiple modalities including convalescent plasma as well as Remdesivir mediastinal emphysema, present on admission Covid 19 presently positive Elevated lactic acid, possibly secondary to sepsis, present on admission Elevated bilirubin, ALT AST, possibility of hepatitis associated with Covid 19 Elevated LDH Troponin 0.046, possibly associated with myocardial involvement secondary to Co vid 19 Hypoalbuminemia with mild protein calorie malnutrition Elevated pro calcitonin Hyponatremia Thrombocytopenia increased white blood count History of asthma, intermittent history of GERD Hyperlipidemia history of pneumonia History of prostate disorder, cancer history of asbestos exposure History of appendectomy History of posttraumatic stress disorder Body mass index of 43.4 obesity Full code Recommendations and discussion: Recommend continue current medications, management, and symptomatic treatment. Patient has been off IV antibiotics and will continue to monitor closely. Patient was having multiple episodes of diarrhea and a stool sample was sent and is positive for Clostridium difficile and will initiate oral vanco. Multiple medical consultations following. Patient is working with PT/OT with the possibility of ECF as patient continues to be quite weak and unsteady with gait. Patient continues to be severely dyspneic and oxygen saturations drop with minimal exertion. Will continue to monitor closely and repeat a.m. labs. Further recommendations to follow. Awaiting for insurance authorization for [facility]. Possible discharge in 24-48 hours.
[2020-10-21 17:34] LABS: Glucose,Whole Blood 171 mg/dL (75-99)
[2020-10-21] MEDS: HYDROCORTISONE 10 MG TAB PO SCH (19:22)
[2020-10-21] MEDS: SODIUM CHLORIDE 0.9% 1,000 ML IV SCH (19:24)
[2020-10-21 19:58] LABS: Glucose,Whole Blood 182 mg/dL (75-99)
[2020-10-21] MEDS: INSULIN DETEMIR (LEVEMIR) 100 UNIT/ML SYR SQ SCH (20:39)
[2020-10-21] MEDS: ALPRAZolam 0.25 MG TAB PO PRN (20:39)
[2020-10-21] MEDS: traZODone HCL 50 MG TAB PO SCH (20:39)
--- NOTE | 2020-10-21 22:52 | PN ---
PROGRESS NOTE DATE OF SERVICE: 10/21/2020 REASON FOR FOLLOWUP: Diarrhea and C difficile colitis. INTERVAL HISTORY: The patient is currently afebrile. He was seen on rounds this morning. He has been complaining of multiple loose stools since last night. Denies having any nausea, vomiting, and no abdominal pain. Breathing has improved. No chest pain, shortness of breath or cough. PHYSICAL EXAMINATION: Blood pressure 119/86, pulse of 60, temperature 97.9. He is 92% on 2 L nasal cannula. General description is a middle-aged male lying in bed in no distress. RESPIRATORY SYSTEM: Unlabored breathing with decreased intensity of breath sounds. No wheeze. HEART: S1, S2. Regular rate and rhythm. ABDOMEN: Soft. No tenderness. LABS: Hemoglobin is 12.3, white count of 6.8. BUN of 10, creatinine 0.62. Stool for C difficile subsequently came back positive. DIAGNOSTIC IMPRESSION AND PLAN: Patient with multiple loose stools with acute diarrhea; antibiotic exposure, likely symptomatic Clostridium difficile colitis. Vancomycin 250 p.o. q.6 hours. To continue. Will add Questran if diarrhea persists and contact precautions. MMODL / IJN: [id number] /
[2020-10-22] MEDS: CHERRY FLAVOR 60 ML BOTTLE PO SCH ×4 (05:15→23:31)
[2020-10-22] MEDS: VANCOMYCIN ORAL SOLUTION 250 MG/5 ML BOTTLE PO SCH ×4 (05:16→23:31)
[2020-10-22 07:07] LABS: Glucose,Whole Blood 126 mg/dL (75-99)
[2020-10-22 07:12] LABS: African American GFR (CKD) >90 (>60 ml/min/1.73 sqM); Anion Gap 3 mmol/L; Blood Urea Nitrogen 9 mg/dL (9-20); Calcium 8.6 mg/dL (8.4-10.2); Carbon Dioxide 31 mmol/L (22-30); Chloride 102 mmol/L (98-107); Glucose 108 mg/dL (74-99); Non-African American GFR(CKD) >90 (>60 ml/min/1.73 sqM); Potassium 3.3 mmol/L (3.5-5.1); Sodium 136 mmol/L (137-145)
[2020-10-22] MEDS: INSULIN ASPART (NovoLOG) 100 UNIT/ML VIAL SQ SCH ×4 (07:21→20:48)
[2020-10-22] MEDS: ASCORBIC ACID 500 MG TAB PO SCH (07:45)
[2020-10-22] MEDS: FAMOTIDINE 20 MG TAB PO SCH (07:45)
[2020-10-22] MEDS: ENOXAPARIN 40 MG/0.4 ML SYRINGE SQ SCH (07:46)
[2020-10-22] MEDS: amLODIPine 5 MG TAB PO SCH (07:46)
[2020-10-22] MEDS: POTASSIUM CHLORIDE ER 10 MEQ TAB.ER.PRT PO SCH (07:46)
[2020-10-22] MEDS: ZINC SULFATE 220 MG CAP PO SCH (07:46)
[2020-10-22] MEDS: FUROSEMIDE 40 MG TAB PO SCH (07:46)
[2020-10-22] MEDS: ATORVASTATIN 80 MG TAB PO SCH (07:46)
[2020-10-22] MEDS: ASPIRIN 81 MG PO SCH (07:46)
[2020-10-22] MEDS: HYDROCORTISONE 20 MG TAB PO SCH (07:47)
[2020-10-22] MEDS: buPROPion 75 MG TAB PO SCH (07:47)
[2020-10-22] MEDS: CHOLECALCIFEROL 400 UNIT TAB PO SCH (07:47)
[2020-10-22] MEDS ORDERED: POTASSIUM CHLORIDE ER 20 MEQ TAB.ER PO STA (08:43)
[2020-10-22] MEDS: SYMBICORT 160-4.5 MCG INHALER INHALATION SCH ×2 (09:03→19:43)
[2020-10-22] MEDS: ALBUTEROL HFA INHALER INHALATION SCH ×4 (09:03→19:43)
[2020-10-22] MEDS: NYSTATIN 100,000 UNIT/ML SUSP 500,000 UNIT/5 ML CUP PO SCH ×4 (09:48→20:48)
[2020-10-22] MEDS ORDERED: Magnesium Replacement Protocol 1 EACH MISC MISCELLANE PRN (10:17)
[2020-10-22] MEDS ORDERED: Potassium Replacement Protocol 1 EACH MISC MISCELLANE PRN (10:17)
[2020-10-22 10:47] LABS: Glucose,Whole Blood 151 mg/dL (75-99)
[2020-10-22] MEDS: THIAMINE 100 MG TAB PO SCH (12:05)
[2020-10-22] MEDS: MULTIVITAMINS, THERA 1 EACH TAB PO SCH (12:05)
[2020-10-22] MEDS: FOLIC ACID 1 MG TAB PO SCH (12:06)
--- NOTE | 2020-10-22 15:37 | P.PN ---
Subjective Progress Note Date: 10/22/20 This is a 59-year-old male who was recently admitted with bilateral pneumonia as well as possible acute pneumonia who had also recently underwent extended hospitalization with Covid 19 pneumonia. Patient was admitted with significant pneumonia possibly healthcare associated as well as pneumomediastinum. Patient was on IV antibiotics being followed by infectious disease. Antibiotics have since been discontinued and being closely monitored off of antibiotics. Pulmonary is following as well. Patient continues to be significantly short of breath with exertion and continues to be weak. Patient was seen and evaluated by PT/OT and became severely dyspneic in the low 80s. Patient is quite weak and requiring a walker with minimal exertion. Case management and social work following for possible ECF placement 10/21/2020 Patient is seen and evaluated and follow-up and continues to be closely sona tored. Patient continues to be dyspneic with exertion and is currently maintained on 3-4 L of oxygen via nasal cannula. Multiple medical consultations following. Per nursing staff patient had multiple episodes of diarrhea today and a stool sample is sent and is positive for C. diff. Patient will be started on oral vancomycin 4 times daily and will continue to monitor. Patient has been accepted to [facility] for continued PT/OT therapy although awaiting for insurance authorization. Case management and social work following and working on discharge planning. 10/22/2020 Patient is seen in follow-up and is currently maintained on oral antibiotics in the form of vancomycin as he was positive for C. diff colitis. Infectious disease is following. Patient has been off of IV antibiotics and being closely monitored. Patient continues to be dyspneic with exertion and oxygen satur ations dropped although currently maintained on 2-3 L of oxygen via nasal cannula and oxygen saturation is 94% while resting. Potassium was found to be 3.3 today and being replaced. Will repeat a.m. labs. Social work following awaiting authorization from insurance for possible ECF placement once stabilized and discharged. Review of systems: Constitutional: No reports of fatigue, fever, or chills, reports anxiety Cardiovascular: No reports of chest pain or palpitations Respiratory: Reports shortness of breath, cough GI: No reports of nausea, vomiting, reports multiple episodes of diarrhea : No reports of dysuria or retention Neurovascular: Reports weakness All medications have been reviewed Active Medications Albuterol Sulfate (Albuterol Hfa Inhaler) 2 puff INHALATION RT-QID [place] Last Admin: 10/22/20 12:16 Dose: 2 puff Documented by: Alprazolam (Alprazolam 0.25 Mg Tab) 0.25 mg PO HS PRN PRN Reason: Anxiety Last Admin: 10/21/20 20:39 Dose: 0.25 mg Documented by: Amlodipine Besylate (Amlodipine 5 Mg Tab) 5 mg PO DAILY [facility] Last Admin: 10/22/20 07:46 Dose: 5 mg Documented by: Ascorbic Acid (Ascorbic Acid 500 Mg Tab) 1,000 mg PO DAILY [facility] Last Admin: 10/22/20 07:45 Dose: 1,000 mg Documented by: Aspirin (Aspirin 81 Mg) 81 mg PO DAILY [facility] Last Admin: 10/22/20 07:46 Dose: 81 mg Documented by: Atorvastatin Calcium (Atorvastatin 80 Mg Tab) 80 mg PO DAILY [facility] Last Admin: 10/22/20 07:46 Dose: 80 mg Documented by: Benzonatate (Benzonatate 100 Mg Cap) 200 mg PO TID PRN PRN Reason: Cough Budesonide/Formoterol Fumarate (Symbicort 160-4.5 Mcg Inhaler) 2 puff INHALATION RT-BID [facility] Last Admin: 10/22/20 09:03 Dose: Not Given Documented by: Bupropion HCl (Bupropion 75 Mg Tab) 150 mg PO DAILY [facility] Last Admin: 10/22/20 07:47 Dose: 150 mg Documented by: Hills Syrup (Hills Flavor 60 Ml Bottle) 5 ml PO Q6HR [facility] Last Admin: 10/22/20 12:03 Dose: 5 ml Documented by: Cholecalciferol (Cholecalciferol 400 Unit Tab) 400 unit PO DAILY [facility] Last Admin: 10/22/20 07:47 Dose: 400 unit Documented by: Cholestyramine Resin (Cholestyramine (With Sugar) 4 Gm Packet) 4 gm PO BID@1000,1800 [facility] Enoxaparin Sodium (Enoxaparin 40 Mg/0.4 Ml Syringe) 40 mg SQ DAILY [facility] Last Admin: 10/22/20 07:46 Dose: 40 mg Documented by: Famotidine (Famotidine 20 Mg Tab) 40 mg PO DAILY [facility] Last Admin: 10/22/20 07:45 Dose: 40 mg Documented by: Folic Acid (Folic Acid 1 Mg Tab) 1 mg PO DAILY@1200 [facility] Last Admin: 10/22/20 12:06 Dose: 1 mg Documented by: Furosemide (Furosemide 40 Mg Tab) 40 mg PO DAILY [facility] Last Admin: 10/22/20 07:46 Dose: 40 mg Documented by: Hydrocortisone (Hydrocortisone 10 Mg Tab) 10 mg PO DAILY@1900 [facility] Last Admin: 10/21/20 19:22 Dose: 10 mg Documented by: Hydrocortisone (Hydrocortisone 20 Mg Tab) 20 mg PO DAILY [facility] Last Admin: 10/22/20 07:47 Dose: 20 mg Documented by: Sodium Chloride (Saline 0.9%) 1,000 mls @ 20 mls/hr IV .Q24H [facility] Last Admin: 10/21/20 19:24 Dose: Not Given Documented by: Insulin Aspart (Insulin Aspart (Novolog) 100 Unit/Ml Vial) 0 unit SQ ACHS [facility]; Protocol Last Admin: 10/22/20 12:06 Dose: 2 unit Documented by: Insulin Detemir (Insulin Detemir (Levemir) 100 Unit/Ml Syr) 30 unit SQ HS [facility] Last Admin: 10/21/20 20:39 Dose: 30 unit Documented by: Loperamide HCl (Loperamide 2 Mg Cap) 2 mg PO QID PRN PRN Reason: Diarrhea Miscellaneous Information (Magnesium Replacement Protocol 1 Each Misc) 1 each MISCELLANE DAILY PRN; Protocol PRN Reason: Per Protocol Miscellaneous Information (Potassium Replacement Protocol 1 Each Misc) 1 each MISCELLANE DAILY PRN; Protocol PRN Reason: Per Protocol Multivitamins (Multivitamins, Thera 1 Each Tab) 1 each PO DAILY@1200 [facility] Last Admin: 10/22/20 12:05 Dose: 1 each Documented by: Naloxone HCl (Naloxone 0.4 Mg/Ml 1 Ml Vial) 0.2 mg IV Q2M PRN PRN Reason: Opioid Reversal Nystatin (Nystatin 100,000 Unit/Ml Susp 500,000 Unit/5 Ml Cup) 500,000 unit PO QID [facility] Last Admin: 10/22/20 12:09 Dose: 500,000 unit Documented by: Potassium Chloride (Potassium Chloride Er 10 Meq Tab.Er.Prt) 10 meq PO DAILY [facility] Last Admin: 10/22/20 07:46 Dose: 10 meq Documented by: Thiamine HCl (Thiamine 100 Mg Tab) 100 mg PO DAILY@1200 [facility] Last Admin: 10/22/20 12:05 Dose: 100 mg Documented by: Trazodone HCl (Trazodone Hcl 50 Mg Tab) 50 mg PO HS [facility] Last Admin: 10/21/20 20:39 Dose: 50 mg Documented by: Vancomycin HCl (Vancomycin Oral Solution 250 Mg/5 Ml Bottle) 250 mg PO Q6HR [facility] Last Admin: 10/22/20 12:03 Dose: 250 mg Documented by: Zinc Sulfate (Zinc Sulfate 220 Mg Cap) 220 mg PO DAILY [facility] Last Admin: 10/22/20 07:46 Dose: 220 mg Documented by: Objective - Vital Signs Vital signs: Vital Signs Temp 97.9 F 10/22/20 10:54 Pulse 67 10/22/20 10:54 Resp 18 10/22/20 10:54 BP 132/74 10/22/20 10:54 Pulse Ox 94 L 10/22/20 10:54 Intake & Output 10/21/20 10/22/20 10/22/20 18:59 06:59 18:59 Intake Total 1300 1190 Output Total 400 700 Balance 900 490 Intake: Oral 1300 1190 Output: Urine 400 700 Other: Voiding Method Urinal Urinal Urinal # Voids 4 2 300 # Bowel Movements 3 2 3 - Exam Gen: This is a 59-year-old male awake, alert and oriented 3, well-developed, well-nourished, obese. Temp is 97.9F, pulse is 67, respirations are 18, blood pressure is 132/74, oxygen saturation is 94% on 2 L via nasal cannula. HEENT: Head is atraumatic, normocephalic. Pupils equal, round. Sclerae is anicteric. NECK: Supple. No JVD. No lymphadenopathy. No thyromegaly. LUNGS: Diminished breath sounds bilaterally with no wheezing or rhonchi noted. No intercostal retractions. HEART: S1 1, S2 are muffled ABDOMEN: Soft. Obese. Bowel sounds are present. No masses. No tenderness. EXTREMITIES: No pedal edema. No calf tenderness. NEUROLOGICAL: Patient is awake, alert and oriented x3. Cranial nerves 2 through 12 are grossly intact. Diffusely weak - Labs CBC & Chem 7: 10/20/20 07:43 10/22/20 06:15 Labs: Abnormal Lab Results - Last 24 Hours (Table) 10/21/20 10/21/20 10/22/20 Range/Units 17:27 19:57 06:15 Sodium 136 L (137-145) mmol/L Potassium 3.3 L (3.5-5.1) mmol/L Carbon Dioxide 31 H (22-30) mmol/L Creatinine 0.55 L (0.66-1.25) mg/dL Glucose 108 H (74-99) mg/dL POC Glucose (mg/dL) 171 H 182 H (75-99) mg/dL 10/22/20 10/22/20 Range/Units 07:06 10:45 Sodium (137-145) mmol/L Potassium (3.5-5.1) mmol/L Carbon Dioxide (22-30) mmol/L Creatinine (0.66-1.25) mg/dL Glucose (74-99) mg/dL POC Glucose (mg/dL) 126 H 151 H (75-99) mg/dL Assessment and Plan Assessment: Bilateral pneumonia with possible hospital-acquired pneumonia with acute hypoxic respiratory failure with possible sepsis, present on admission Diarrhea and was positive for Clostridium difficile Recent Covid 19 pneumonia with acute hypoxic respiratory failure. Treated with multiple modalities including convalescent plasma as well as Remdesivir mediastinal emphysema, present on admission Covid 19 presently positive Elevated lactic acid, possibly secondary to sepsis, present on admission Elevated bilirubin, ALT AST, possibility of hepatitis associated with Covid 19 Elevated LDH Troponin 0.046, possibly associated with myocardial involvement secondary to Covid 19 Hypoalbuminemia with mild protein calorie malnutrition Elevated pro calcitonin Hyponatremia Thrombocytopenia increased white blood count History of asthma, intermittent history of GERD Hyperlipidemia history of pneumonia History of prostate disorder, cancer history of asbestos exposure History of appendectomy History of posttraumatic stress disorder Body mass index of 43.4 obesity Full code Recommendations and discussion: Recommend continue current medications, management, and symptomatic treatment. Continue with oral vancomycin and Questran added for continued loose stools. Multiple medical consultations following. Patient is working with PT/OT with the possibility of ECF as patient continues to be quite weak and unsteady with gait. Patient continues to be severely dyspneic and oxygen saturations drop with minimal exertion. Potassium was 3.3 today and replaced. Will continue to monitor closely and repeat a.m. labs. Further recommendations to follow. Awaiting for insurance authorization for [facility]. Possible discharge in 24-48 hours.
[2020-10-22 16:34] LABS: Glucose,Whole Blood 122 mg/dL (75-99)
[2020-10-22] MEDS ORDERED: CHOLESTYRAMINE (WITH SUGAR) 4 GM PACKET PO SCH (18:00)
[2020-10-22] MEDS: SODIUM CHLORIDE 0.9% 1,000 ML IV SCH (19:42)
[2020-10-22] MEDS: HYDROCORTISONE 10 MG TAB PO SCH (19:42)
[2020-10-22 20:12] LABS: Glucose,Whole Blood 181 mg/dL (75-99)
[2020-10-22] MEDS: traZODone HCL 50 MG TAB PO SCH (20:47)
[2020-10-22] MEDS: INSULIN DETEMIR (LEVEMIR) 100 UNIT/ML SYR SQ SCH (20:48)
[2020-10-22] MEDS: BENZONATATE 100 MG CAP PO PRN (20:48)
[2020-10-22] MEDS: ALPRAZolam 0.25 MG TAB PO PRN (20:48)
--- NOTE | 2020-10-22 22:27 | PN ---
PROGRESS NOTE DATE OF SERVICE: 10/22/2020 REASON FOR FOLLOWUP: C diff colitis. INTERVAL HISTORY: The patient is currently afebrile. The patient is breathing more comfortably. The patient's diarrhea has slowed and did have one BM today and stool is slightly forming up. The patient denies any abdominal pain. No chest pain, no shortness of breath or cough. PHYSICAL EXAMINATION: Blood pressure 132/84 with a pulse of 91, temperature 97.9. He is 94% on 2 L nasal cannula. General description is a middle-aged male up in the chair in no distress. Respiratory system: Unlabored breathing. Extremities: No edema of the feet. LABS: BUN 9, creatinine 0.55. DIAGNOSTIC IMPRESSION AND PLAN: Patient with C difficile colitis in this patient currently covered with oral vancomycin. Plan is for 10 days of oral vanco. Advised increase probiotic and Yogurt intake, monitor clinical course closely. MMODL / IJN: [id number] / MTDD
[2020-10-23] MEDS: CHERRY FLAVOR 60 ML BOTTLE PO SCH ×3 (05:39→18:30)
[2020-10-23] MEDS: VANCOMYCIN ORAL SOLUTION 250 MG/5 ML BOTTLE PO SCH ×3 (05:39→18:30)
[2020-10-23 07:11] LABS: Glucose,Whole Blood 118 mg/dL (75-99)
[2020-10-23] MEDS: INSULIN ASPART (NovoLOG) 100 UNIT/ML VIAL SQ SCH ×4 (07:51→21:09)
[2020-10-23] MEDS: MULTIVITAMINS, THERA 1 EACH TAB PO SCH (08:55)
[2020-10-23] MEDS: FOLIC ACID 1 MG TAB PO SCH (08:55)
[2020-10-23] MEDS: ASPIRIN 81 MG PO SCH (08:55)
[2020-10-23] MEDS: FUROSEMIDE 40 MG TAB PO SCH (08:56)
[2020-10-23] MEDS: POTASSIUM CHLORIDE ER 10 MEQ TAB.ER.PRT PO SCH (08:56)
[2020-10-23] MEDS: ALBUTEROL HFA INHALER INHALATION SCH ×4 (08:56→19:59)
[2020-10-23] MEDS: ASCORBIC ACID 500 MG TAB PO SCH (08:56)
[2020-10-23] MEDS: amLODIPine 5 MG TAB PO SCH (08:56)
[2020-10-23] MEDS: ATORVASTATIN 80 MG TAB PO SCH (08:56)
[2020-10-23] MEDS: ZINC SULFATE 220 MG CAP PO SCH (08:56)
[2020-10-23] MEDS: SYMBICORT 160-4.5 MCG INHALER INHALATION SCH ×2 (08:56→19:59)
[2020-10-23] MEDS: THIAMINE 100 MG TAB PO SCH (08:56)
[2020-10-23] MEDS: FAMOTIDINE 20 MG TAB PO SCH (08:56)
[2020-10-23] MEDS: CHOLESTYRAMINE (WITH SUGAR) 4 GM PACKET PO SCH ×2 (08:57→21:09)
[2020-10-23] MEDS: HYDROCORTISONE 20 MG TAB PO SCH (08:57)
[2020-10-23] MEDS: ENOXAPARIN 40 MG/0.4 ML SYRINGE SQ SCH (08:57)
[2020-10-23] MEDS: NYSTATIN 100,000 UNIT/ML SUSP 500,000 UNIT/5 ML CUP PO SCH ×4 (08:57→20:02)
[2020-10-23] MEDS: CHOLECALCIFEROL 400 UNIT TAB PO SCH (08:58)
[2020-10-23] MEDS: buPROPion 75 MG TAB PO SCH (08:58)
[2020-10-23 10:01] LABS: African American GFR (CKD) 128.4 (60.0-200.0); Anion Gap 9.2 mmol/L (4.00-12.00); Calcium 8.5 mg/dL (8.7-10.3); Carbon Dioxide 28.8 mmol/L (21.6-31.8); Magnesium 1.4 mg/dL (1.5-2.4); Non-African American GFR(CKD) 110.8 (60.0-200.0); Potassium 3.8 mmol/L (3.5-5.5)
[2020-10-23 10:58] LABS: Glucose,Whole Blood 151 mg/dL (75-99)
--- NOTE | 2020-10-23 14:40 | US ---
EXAMINATION TYPE: US venous doppler duplex LE BI DATE OF EXAM: 10/23/2020 2:19 PM COMPARISON: US 10/15/2021 CLINICAL HISTORY: r/o DVT elevated D-dimer. . SIDE PERFORMED: Bilateral TECHNIQUE: The lower extremity deep venous system is examined utilizing real time linear array sonog pablo with graded compression, doppler sonography and color-flow sonography. VESSELS IMAGED: Common Femoral Vein Deep Femoral Vein Greater Saphenous Vein * Femoral Vein Popliteal Vein Small Saphenous Vein * Proximal Calf Veins (* superficial vessels) Right Leg: Negative for DVT Left Leg: Negative for DVT IMPRESSION: Grayscale, color doppler, spectral doppler imaging performed of the deep veins of the lo wer extremities. There is normal flow, compressibility, vascular waveforms.
--- NOTE | 2020-10-23 14:50 | P.PN ---
Subjective Progress Note Date: 10/23/20 HISTORY OF PRESENT ILLNESS This is a 59-year-old male was been admitted to the hospital and [facility] for C. difficile colitis. Patient states that his diarrhea is slowing and seems to be more consistency to it. Less watery consistency. He is taking yogurt with his meals. He denies shortness of breath. He has a cough during the evaluation although he denies having a cough. Patient has been maintained on oral vancomycin. Patient has been afebrile, heart rate 94, blood pressure 146/80, pulse ox 92% on 2 L nasal cannula. Electrolytes and renal function normal. Ultrasound of bilateral lower extremities negative for DVT. PHYSICAL EXAMINATION Gen: This is a morbidly obese 59-year-old male. HEENT: Head is atraumatic, normocephalic. Pupils equal, round. Sclerae is anicteric. NECK: Supple. No JVD. No lymphadenopathy. LUNGS: Clear to auscultation. No wheezes or rhonchi. No intercostal retractions. HEART: Regular rate and rhythm. No murmur. ABDOMEN: Soft. Bowel sounds are present. No masses. No tenderness. EXTREMITIES: No pedal edema. No calf tenderness. NEUROLOGICAL: Patient is awake, alert and oriented x3. ASSESSMENT C. difficile colitis. Recent treatment for covert 19 pneumonia in September PLAN Plan for 10 days of oral vancomycin Continue yogurt and probiotics The above dictated assessment and findings were discussed with Dr. Rucker. The impression and plan of care have been directed as dictated. Linnea Shipman nurse practitioner acting as scribe for Dr. Rucker. Objective - Vital Signs Vital signs: Vital Signs Temp 98.1 F 10/23/20 10:14 Pulse 94 10/23/20 10:14 Resp 20 10/23/20 10:14 BP 146/80 10/23/20 10:14 Pulse Ox 92 L 10/23/20 10:14 Intake & Output 10/22/20 10/23/20 10/23/20 18:59 06:59 18:59 Intake Total 590 Balance 590 Intake: Oral 590 Other: Voiding Method Urinal Urinal Urinal # Voids 300 3 # Bowel Movements 3 - Labs CBC & Chem 7: 10/20/20 07:43 10/23/20 05:38 Labs: Abnormal Lab Results - Last 24 Hours (Table) 10/22/20 10/22/20 10/23/20 Range/Units 16:33 20:07 05:38 Glucose 118 H (70-110) mg/dL POC Glucose (mg/dL) 122 H 181 H (75-99) mg/dL Calcium 8.5 L (8.7-10.3) mg/dL Magnesium 1.4 L (1.5-2.4) mg/dL 10/23/20 10/23/20 Range/Units 07:02 10:52 Glucose (70-110) mg/dL POC Glucose (mg/dL) 118 H 151 H (75-99) mg/dL Calcium (8.7-10.3) mg/dL Magnesium (1.5-2.4) mg/dL
--- NOTE | 2020-10-23 15:28 | P.PN ---
Subjective Progress Note Date: 10/23/20 This is a 59-year-old male who was recently admitted with bilateral pneumonia as well as possible acute pneumonia who had also recently underwent extended hospitalization with Covid 19 pneumonia. Patient was admitted with significant pneumonia possibly healthcare associated as well as pneumomediastinum. Patient was on IV antibiotics being followed by infectious disease. Antibiotics have since been discontinued and being closely monitored off of antibiotics. Pulmonary is following as well. Patient continues to be significantly short of breath with exertion and continues to be weak. Patient was seen and evaluated by PT/OT and became severely dyspneic in the low 80s. Patient is quite weak and requiring a walker with minimal exertion. Case management and social work following for possible ECF placement 10/21/2020 Patient is seen and evaluated and follow-up and continues to be closely sona tored. Patient continues to be dyspneic with exertion and is currently maintained on 3-4 L of oxygen via nasal cannula. Multiple medical consultations following. Per nursing staff patient had multiple episodes of diarrhea today and a stool sample is sent and is positive for C. diff. Patient will be started on oral vancomycin 4 times daily and will continue to monitor. Patient has been accepted to [facility] for continued PT/OT therapy although awaiting for insurance authorization. Case management and social work following and working on discharge planning. 10/22/2020 Patient is seen in follow-up and is currently maintained on oral antibiotics in the form of vancomycin as he was positive for C. diff colitis. Infectious disease is following. Patient has been off of IV antibiotics and being closely monitored. Patient continues to be dyspneic with exertion and oxygen satur ations dropped although currently maintained on 2-3 L of oxygen via nasal cannula and oxygen saturation is 94% while resting. Potassium was found to be 3.3 today and being replaced. Will repeat a.m. labs. Social work following awaiting authorization from insurance for possible ECF placement once stabilized and discharged. 10/23/2020 Patient is seen and evaluated in follow-up and d-dimer was found to be elevated at 1.01 and venous Doppler was ordered a bilateral lower extremities. Results were negative for DVTs of lower extremities. Patient is maintained on Lovenox and will continue at this time. Potassium improved and is 3.8. Magnesium is 1.4 and will be replaced. Will repeat labs. Patient continues to be extremely dyspneic with exertion and instructed to continue using incentive spirometer and increasing activity as tolerated. Patient has been accepted at [facility] the [address] although is awaiting authorization from insurance. Case management and social work following. Review of systems: Constitutional: No reports of fatigue, fever, or chills, reports anxiety Cardiovascular: No reports of chest pain or palpitations Respiratory: Reports shortness of breath, cough GI: No reports of nausea, vomiting, reports multiple episodes of diarrhea : No reports of dysuria or retention Neurovascular: Reports weakness All medications have been reviewed Active Medications Albuterol Sulfate (Albuterol Hfa Inhaler) 2 puff INHALATION RT-QID [facility] Last Admin: 10/23/20 11:51 Dose: 2 puff Documented by: Alprazolam (Alprazolam 0.25 Mg Tab) 0.25 mg PO HS PRN PRN Reason: Anxiety Last Admin: 10/22/20 20:48 Dose: 0.25 mg Documented by: Amlodipine Besylate (Amlodipine 5 Mg Tab) 5 mg PO DAILY [facility] Last Admin: 10/23/20 08:56 Dose: 5 mg Documented by: Ascorbic Acid (Ascorbic Acid 500 Mg Tab) 1,000 mg PO DAILY [facility] Last Admin: 10/23/20 08:56 Dose: 1,000 mg Documented by: Aspirin (Aspirin 81 Mg) 81 mg PO DAILY [facility] Last Admin: 10/23/20 08:55 Dose: 81 mg Documented by: Atorvastatin Calcium (Atorvastatin 80 Mg Tab) 80 mg PO DAILY [facility] Last Admin: 10/23/20 08:56 Dose: 80 mg Documented by: Benzonatate (Benzonatate 100 Mg Cap) 200 mg PO TID PRN PRN Reason: Cough Last Admin: 10/22/20 20:48 Dose: 200 mg Documented by: Budesonide/Formoterol Fumarate (Symbicort 160-4.5 Mcg Inhaler) 2 puff INHALATION RT-BID [facility] Last Admin: 10/23/20 08:56 Dose: 2 puff Documented by: Bupropion HCl (Bupropion 75 Mg Tab) 150 mg PO DAILY [facility] Last Admin: 10/23/20 08:58 Dose: 150 mg Documented by: Hills Syrup (Hills Flavor 60 Ml Bottle) 5 ml PO Q6HR [facility] Last Admin: 10/23/20 12:40 Dose: 5 ml Documented by: Cholecalciferol (Cholecalciferol 400 Unit Tab) 400 unit PO DAILY [facility] Last Admin: 10/23/20 08:58 Dose: 400 unit Documented by: Cholestyramine Resin (Cholestyramine (With Sugar) 4 Gm Packet) 4 gm PO BID@1000,2100 [facility] Last Admin: 10/23/20 08:57 Dose: 4 gm Documented by: Enoxaparin Sodium (Enoxaparin 40 Mg/0.4 Ml Syringe) 40 mg SQ DAILY [facility] Last Admin: 10/23/20 08:57 Dose: 40 mg Documented by: Famotidine (Famotidine 20 Mg Tab) 40 mg PO DAILY [facility] Last Admin: 10/23/20 08:56 Dose: 40 mg Documented by: Folic Acid (Folic Acid 1 Mg Tab) 1 mg PO DAILY@1200 [facility] Last Admin: 10/23/20 08:55 Dose: 1 mg Documented by: Furosemide (Furosemide 40 Mg Tab) 40 mg PO DAILY [facility] Last Admin: 10/23/20 08:56 Dose: 40 mg Documented by: Hydrocortisone (Hydrocortisone 10 Mg Tab) 10 mg PO DAILY@1900 [facility] Last Admin: 10/22/20 19:42 Dose: 10 mg Documented by: Hydrocortisone (Hydrocortisone 20 Mg Tab) 20 mg PO DAILY [facility] Last Admin: 10/23/20 08:57 Dose: 20 mg Documented by: Sodium Chloride (Saline 0.9%) 1,000 mls @ 20 mls/hr IV .Q24H [facility] Last Admin: 10/22/20 19:42 Dose: Not Given Documented by: Insulin Aspart (Insulin Aspart (Novolog) 100 Unit/Ml Vial) 0 unit SQ ACHS [facility]; Protocol Last Admin: 10/23/20 12:43 Dose: 2 unit Documented by: Insulin Detemir (Insulin Detemir (Levemir) 100 Unit/Ml Syr) 30 unit SQ HS [facility] Last Admin: 10/22/20 20:48 Dose: 30 unit Documented by: Miscellaneous Information (Magnesium Replacement Protocol 1 Each Misc) 1 each MISCELLANE DAILY PRN; Protocol PRN Reason: Per Protocol Miscellaneous Information (Potassium Replacement Protocol 1 Each Misc) 1 each MISCELLANE DAILY PRN; Protocol PRN Reason: Per Protocol Multivitamins (Multivitamins, Thera 1 Each Tab) 1 each PO DAILY@1200 [facility] Last Admin: 10/23/20 08:55 Dose: 1 each Documented by: Naloxone HCl (Naloxone 0.4 Mg/Ml 1 Ml Vial) 0.2 mg IV Q2M PRN PRN Reason: Opioid Reversal Nystatin (Nystatin 100,000 Unit/Ml Susp 500,000 Unit/5 Ml Cup) 500,000 unit PO QID [facility] Last Admin: 10/23/20 12:43 Dose: 500,000 unit Documented by: Potassium Chloride (Potassium Chloride Er 10 Meq Tab.Er.Prt) 10 meq PO DAILY [facility] Last Admin: 10/23/20 08:56 Dose: 10 meq Documented by: Thiamine HCl (Thiamine 100 Mg Tab) 100 mg PO DAILY@1200 [facility] Last Admin: 10/23/20 08:56 Dose: 100 mg Documented by: Trazodone HCl (Trazodone Hcl 50 Mg Tab) 50 mg PO HS [facility] Last Admin: 10/22/20 20:47 Dose: 50 mg Documented by: Vancomycin HCl (Vancomycin Oral Solution 250 Mg/5 Ml Bottle) 250 mg PO Q6HR [facility] Last Admin: 10/23/20 12:40 Dose: 250 mg Documented by: Zinc Sulfate (Zinc Sulfate 220 Mg Cap) 220 mg PO DAILY [facility] Last Admin: 10/23/20 08:56 Dose: 220 mg Documented by: Objective - Vital Signs Vital signs: Vital Signs Temp 98.1 F 10/23/20 10:14 Pulse 94 10/23/20 10:14 Resp 20 10/23/20 10:14 BP 146/80 10/23/20 10:14 Pulse Ox 92 L 10/23/20 10:14 Intake & Output 10/22/20 10/23/20 10/23/20 18:59 06:59 18:59 Intake Total 590 Balance 590 Intake: Oral 590 Other: Voiding Method Urinal Urinal Urinal # Voids 300 3 # Bowel Movements 3 - Exam Gen: This is a 59-year-old male awake, alert and oriented 3, well-developed, well-nourished, obese. Temp is 98.1F, pulse is 94, respirations are 20, blood pressure is 146/80, oxygen saturation is 92% on 2 L via nasal cannula. HEENT: Head is atraumatic, normocephalic. Pupils equal, round. Sclerae is anicteric. NECK: Supple. No JVD. No lymphadenopathy. No thyromegaly. LUNGS: Diminished breath sounds bilaterally with no wheezing or rhonchi noted. No intercostal retractions. HEART: S1 1, S2 are muffled ABDOMEN: Soft. Obese. Bowel sounds are present. No masses. No tenderness. EXTREMITIES: No pedal edema. No calf tenderness. Left knee pain on palpation mild bilateral lower extremity edema noted NEUROLOGICAL: Patient is awake, alert and oriented x3. Cranial nerves 2 through 12 are grossly intact. Diffusely weak - Labs CBC & Chem 7: 10/20/20 07:43 10/23/20 05:38 Labs: Abnormal Lab Results - Last 24 Hours (Table) 10/22/20 10/22/20 10/23/20 Range/Units 16:33 20:07 05:38 Glucose 118 H (70-110) mg/dL POC Glucose (mg/dL) 122 H 181 H (75-99) mg/dL Calcium 8.5 L (8.7-10.3) mg/dL Magnesium 1.4 L (1.5-2.4) mg/dL 10/23/20 10/23/20 Range/Units 07:02 10:52 Glucose (70-110) mg/dL POC Glucose (mg/dL) 118 H 151 H (75-99) mg/dL Calcium (8.7-10.3) mg/dL Magnesium (1.5-2.4) mg/dL Assessment and Plan Assessment: Bilateral pneumonia with possible hospital-acquired pneumonia with acute hypoxic respiratory failure with possible sepsis, present on admission Diarrhea and was positive for Clostridium difficile Recent Covid 19 pneumonia with acute hypoxic respiratory failure. Treated with multiple modalities including convalescent plasma as well as Remdesivir mediastinal emphysema, present on admission Covid 19 presently positive Elevated lactic acid, possibly secondary to sepsis, present on admission Elevated bilirubin, ALT AST, possibility of hepatitis associated with Covid 19 Elevated LDH Troponin 0.046, possibly associated with myocardial involvement secondary to Covid 19 Hypoalbuminemia with mild protein calorie malnutrition Elevated pro calcitonin Hyponatremia Thrombocytopenia increased white blood count History of asthma, intermittent history of GERD Hyperlipidemia history of pneumonia History of prostate disorder, cancer history of asbestos exposure History of appendectomy History of posttraumatic stress disorder Body mass index of 43.4 obesity Full code Recommendations and discussion: Recommend continue current medications, management, and symptomatic treatment. Continue with oral vancomycin and Questran added for continued loose stools. To complete a 10 day course of vancomycin. Multiple medical consultations following. Patient is working with PT/OT with the possibility of ECF as patient continues to be quite weak and unsteady with gait. Patient continues to be severely dyspneic and oxygen saturations drop with minimal exertion. Potassium improved today and is 3.8. Magnesium is low and currently being replaced per protocol. D-dimer was also found to be elevated at 1.01 and patient underwent venous Doppler studies of bilateral lower extremities with no DVTs noted. A shunt is maintained on Lovenox and will continue at this time. Will continue to monitor closely and repeat a.m. labs. Further recommendations to follow. Awaiting for insurance authorization for [facility] on [address]. Prognosis is guarded.
[2020-10-23 17:17] LABS: Glucose,Whole Blood 154 mg/dL (75-99)
[2020-10-23] MEDS: SODIUM CHLORIDE 0.9% 1,000 ML IV SCH (18:28)
[2020-10-23] MEDS: HYDROCORTISONE 10 MG TAB PO SCH (19:19)
[2020-10-23] MEDS: BENZONATATE 100 MG CAP PO PRN (19:23)
[2020-10-23] MEDS: traZODone HCL 50 MG TAB PO SCH (20:02)
[2020-10-23] MEDS: ALPRAZolam 0.25 MG TAB PO PRN (20:02)
[2020-10-23 20:50] LABS: Glucose,Whole Blood 159 mg/dL (75-99)
[2020-10-23] MEDS: INSULIN DETEMIR (LEVEMIR) 100 UNIT/ML SYR SQ SCH (21:09)
[2020-10-24] MEDS: VANCOMYCIN ORAL SOLUTION 250 MG/5 ML BOTTLE PO SCH ×5 (00:20→23:59)
[2020-10-24] MEDS: CHERRY FLAVOR 60 ML BOTTLE PO SCH ×5 (00:21→23:59)
[2020-10-24 07:26] LABS: Glucose,Whole Blood 113 mg/dL (75-99)
[2020-10-24] MEDS: SYMBICORT 160-4.5 MCG INHALER INHALATION SCH ×2 (07:48→19:10)
[2020-10-24] MEDS: ALBUTEROL HFA INHALER INHALATION SCH ×4 (07:48→19:09)
[2020-10-24] MEDS: INSULIN ASPART (NovoLOG) 100 UNIT/ML VIAL SQ SCH ×4 (07:51→20:54)
[2020-10-24] MEDS: ZINC SULFATE 220 MG CAP PO SCH (09:43)
[2020-10-24] MEDS: ATORVASTATIN 80 MG TAB PO SCH (09:43)
[2020-10-24] MEDS: ASCORBIC ACID 500 MG TAB PO SCH (09:43)
[2020-10-24] MEDS: FOLIC ACID 1 MG TAB PO SCH (09:43)
[2020-10-24] MEDS: THIAMINE 100 MG TAB PO SCH (09:43)
[2020-10-24] MEDS: amLODIPine 5 MG TAB PO SCH (09:44)
[2020-10-24] MEDS: MULTIVITAMINS, THERA 1 EACH TAB PO SCH (09:44)
[2020-10-24] MEDS: ASPIRIN 81 MG PO SCH (09:44)
[2020-10-24] MEDS: FAMOTIDINE 20 MG TAB PO SCH (09:44)
[2020-10-24] MEDS: POTASSIUM CHLORIDE ER 10 MEQ TAB.ER.PRT PO SCH (09:44)
[2020-10-24] MEDS: ENOXAPARIN 40 MG/0.4 ML SYRINGE SQ SCH (09:44)
[2020-10-24] MEDS: FUROSEMIDE 40 MG TAB PO SCH (09:44)
[2020-10-24] MEDS: CHOLECALCIFEROL 400 UNIT TAB PO SCH (09:45)
[2020-10-24] MEDS: buPROPion 75 MG TAB PO SCH (09:45)
[2020-10-24] MEDS: NYSTATIN 100,000 UNIT/ML SUSP 500,000 UNIT/5 ML CUP PO SCH ×4 (09:46→20:06)
[2020-10-24] MEDS: CHOLESTYRAMINE (WITH SUGAR) 4 GM PACKET PO SCH ×2 (09:46→20:54)
[2020-10-24] MEDS: HYDROCORTISONE 20 MG TAB PO SCH (09:47)
--- NOTE | 2020-10-24 10:25 | P.PN ---
Subjective Progress Note Date: 10/24/20 This is a 59-year-old male who was recently admitted with bilateral pneumonia as well as possible acute pneumonia who had also recently underwent extended hospitalization with Covid 19 pneumonia. Patient was admitted with significant pneumonia possibly healthcare associated as well as pneumomediastinum. Patient was on IV antibiotics being followed by infectious disease. Antibiotics have since been discontinued and being closely monitored off of antibiotics. Pulmonary is following as well. Patient continues to be significantly short of breath with exertion and continues to be weak. Patient was seen and evaluated by PT/OT and became severely dyspneic in the low 80s. Patient is quite weak and requiring a walker with minimal exertion. Case management and social work following for possible ECF placement 10/21/2020 Patient is seen and evaluated and follow-up and continues to be closely sona tored. Patient continues to be dyspneic with exertion and is currently maintained on 3-4 L of oxygen via nasal cannula. Multiple medical consultations following. Per nursing staff patient had multiple episodes of diarrhea today and a stool sample is sent and is positive for C. diff. Patient will be started on oral vancomycin 4 times daily and will continue to monitor. Patient has been accepted to [facility] for continued PT/OT therapy although awaiting for insurance authorization. Case management and social work following and working on discharge planning. 10/22/2020 Patient is seen in follow-up and is currently maintained on oral antibiotics in the form of vancomycin as he was positive for C. diff colitis. Infectious disease is following. Patient has been off of IV antibiotics and being closely monitored. Patient continues to be dyspneic with exertion and oxygen satur ations dropped although currently maintained on 2-3 L of oxygen via nasal cannula and oxygen saturation is 94% while resting. Potassium was found to be 3.3 today and being replaced. Will repeat a.m. labs. Social work following awaiting authorization from insurance for possible ECF placement once stabilized and discharged. 10/23/2020 Patient is seen and evaluated in follow-up and d-dimer was found to be elevated at 1.01 and venous Doppler was ordered a bilateral lower extremities. Results were negative for DVTs of lower extremities. Patient is maintained on Lovenox and will continue at this time. Potassium improved and is 3.8. Magnesium is 1.4 and will be replaced. Will repeat labs. Patient continues to be extremely dyspneic with exertion and instructed to continue using incentive spirometer and increasing activity as tolerated. Patient has been accepted at [facility] on the [address] although is awaiting authorization from insurance. Case management and social work following. 10/24/2020 Patient seen in follow-up with no acute overnight issues. Patient is maintained on Lovenox, vitamin C and D supplementation, zinc and will continue at this time. Infectious disease is following. Repeat labs from this morning are pending. Patient's potassium has been replaced and magnesium and will follow- up. Patient has a cough with minimal phlegm production and is maintained on 2-3 L of oxygen. Repeat a.m. chest x-ray and continue to monitor closely. Patient encouraged to increase activity as tolerated and continue with the use of the incentive spirometer at least 10 times every hour while awake. Review of systems: Constitutional: No reports of fatigue, fever, or chills, reports anxiety Cardiovascular: No reports of chest pain or palpitations Respiratory: Reports shortness of breath, and continued cough GI: No reports of nausea, vomiting, reports multiple episodes of diarrhea : No reports of dysuria or retention Neurovascular: Reports weakness All medications have been reviewed Active Medications Albuterol Sulfate (Albuterol Hfa Inhaler) 2 puff INHALATION RT-QID [facility] Last Admin: 10/24/20 07:48 Dose: 2 puff Documented by: Alprazolam (Alprazolam 0.25 Mg Tab) 0.25 mg PO HS PRN PRN Reason: Anxiety Last Admin: 10/23/20 20:02 Dose: 0.25 mg Documented by: Amlodipine Besylate (Amlodipine 5 Mg Tab) 5 mg PO DAILY [facility] Last Admin: 10/24/20 09:44 Dose: 5 mg Documented by: Ascorbic Acid (Ascorbic Acid 500 Mg Tab) 1,000 mg PO DAILY [facility] Last Admin: 10/24/20 09:43 Dose: 1,000 mg Documented by: Aspirin (Aspirin 81 Mg) 81 mg PO DAILY [facility] Last Admin: 10/24/20 09:44 Dose: 81 mg Documented by: Atorvastatin Calcium (Atorvastatin 80 Mg Tab) 80 mg PO DAILY [facility] Last Admin: 10/24/20 09:43 Dose: 80 mg Documented by: Benzonatate (Benzonatate 100 Mg Cap) 200 mg PO TID PRN PRN Reason: Cough Last Admin: 10/23/20 19:23 Dose: 200 mg Documented by: Budesonide/Formoterol Fumarate (Symbicort 160-4.5 Mcg Inhaler) 2 puff INHALATION RT-BID [facility] Last Admin: 10/24/20 07:48 Dose: 2 puff Documented by: Bupropion HCl (Bupropion 75 Mg Tab) 150 mg PO DAILY [facility] Last Admin: 10/24/20 09:45 Dose: 150 mg Documented by: Hills Syrup (Hills Flavor 60 Ml Bottle) 5 ml PO Q6HR [facility] Last Admin: 10/24/20 05:32 Dose: 5 ml Documented by: Cholecalciferol (Cholecalciferol 400 Unit Tab) 400 unit PO DAILY [facility] Last Admin: 10/24/20 09:45 Dose: 400 unit Documented by: Cholestyramine Resin (Cholestyramine (With Sugar) 4 Gm Packet) 4 gm PO BID@1000,2100 [facility] Last Admin: 10/24/20 09:46 Dose: 4 gm Documented by: Enoxaparin Sodium (Enoxaparin 40 Mg/0.4 Ml Syringe) 40 mg SQ DAILY [facility] Last Admin: 10/24/20 09:44 Dose: 40 mg Documented by: Famotidine (Famotidine 20 Mg Tab) 40 mg PO DAILY [facility] Last Admin: 10/24/20 09:44 Dose: 40 mg Documented by: Folic Acid (Folic Acid 1 Mg Tab) 1 mg PO DAILY@1200 [facility] Last Admin: 10/24/20 09:43 Dose: 1 mg Documented by: Furosemide (Furosemide 40 Mg Tab) 40 mg PO DAILY [facility] Last Admin: 10/24/20 09:44 Dose: 40 mg Documented by: Hydrocortisone (Hydrocortisone 10 Mg Tab) 10 mg PO DAILY@1900 [facility] Last Admin: 10/23/20 19:19 Dose: 10 mg Documented by: Hydrocortisone (Hydrocortisone 20 Mg Tab) 20 mg PO DAILY [facility] Last Admin: 10/24/20 09:47 Dose: 20 mg Documented by: Sodium Chloride (Saline 0.9%) 1,000 mls @ 20 mls/hr IV .Q24H [facility] Last Admin: 10/23/20 18:28 Dose: Not Given Documented by: Insulin Aspart (Insulin Aspart (Novolog) 100 Unit/Ml Vial) 0 unit SQ ACHS [facility]; Protocol Last Admin: 10/24/20 07:51 Dose: Not Given Documented by: Insulin Detemir (Insulin Detemir (Levemir) 100 Unit/Ml Syr) 30 unit SQ [facility] Last Admin: 10/23/20 21:09 Dose: 30 unit Documented by: Miscellaneous Information (Magnesium Replacement Protocol 1 Each Misc) 1 each MISCELLANE DAILY PRN; Protocol PRN Reason: Per Protocol Miscellaneous Information (Potassium Replacement Protocol 1 Each Misc) 1 each MISCELLANE DAILY PRN; Protocol PRN Reason: Per Protocol Multivitamins (Multivitamins, Thera 1 Each Tab) 1 each PO DAILY@1200 [facility] Last Admin: 10/24/20 09:44 Dose: 1 each Documented by: Naloxone HCl (Naloxone 0.4 Mg/Ml 1 Ml Vial) 0.2 mg IV Q2M PRN PRN Reason: Opioid Reversal Nystatin (Nystatin 100,000 Unit/Ml Susp 500,000 Unit/5 Ml Cup) 500,000 unit PO QID [facility] Last Admin: 10/24/20 09:46 Dose: 500,000 unit Documented by: Potassium Chloride (Potassium Chloride Er 10 Meq Tab.Er.Prt) 10 meq PO DAILY [facility] Last Admin: 10/24/20 09:44 Dose: 10 meq Documented by: Thiamine HCl (Thiamine 100 Mg Tab) 100 mg PO DAILY@1200 [facility] Last Admin: 10/24/20 09:43 Dose: 100 mg Documented by: Trazodone HCl (Trazodone Hcl 50 Mg Tab) 50 mg PO [facility] Last Admin: 10/23/20 20:02 Dose: 50 mg Documented by: Vancomycin HCl (Vancomycin Oral Solution 250 Mg/5 Ml Bottle) 250 mg PO Q6HR [facility] Last Admin: 10/24/20 05:32 Dose: 250 mg Documented by: Zinc Sulfate (Zinc Sulfate 220 Mg Cap) 220 mg PO DAILY [facility] Last Admin: 10/24/20 09:43 Dose: 220 mg Documented by: Objective - Vital Signs Vital signs: Vital Signs Temp 98.2 F 10/24/20 04:37 Pulse 82 10/24/20 04:37 Resp 18 10/24/20 04:37 BP 104/55 10/24/20 04:37 Pulse Ox 95 10/24/20 07:48 Intake & Output 10/23/20 10/24/20 10/24/20 18:59 06:59 18:59 Intake Total 600 Balance 600 Intake: Oral 600 Other: Voiding Method Urinal Urinal # Voids 1 2 # Bowel Movements 1 - Exam Gen: This is a 59-year-old male awake, alert and oriented 3, well-developed, well-nourished, obese. Temp is 98.2F, pulse is 82, respirations are 18, blood pressure is 104/55, oxygen saturation is 94% on 2 L via nasal cannula. HEENT: Head is atraumatic, normocephalic. Pupils equal, round. Sclerae is anicteric. NECK: Supple. No JVD. No lymphadenopathy. No thyromegaly. LUNGS: Diminished breath sounds bilaterally with no wheezing or rhonchi noted. No intercostal retractions. HEART: S1 , S2 are muffled ABDOMEN: Soft. Obese. Bowel sounds are present. No masses. No tenderness. EXTREMITIES: No pedal edema. No calf tenderness. Left knee pain on palpation mild bilateral lower extremity edema noted, slightly improved NEUROLOGICAL: Patient is awake, alert and oriented x3. Cranial nerves 2 through 12 are grossly intact. Diffusely weak - Labs CBC & Chem 7: 10/20/20 07:43 10/23/20 05:38 Labs: Abnormal Lab Results - Last 24 Hours (Table) 10/23/20 10/23/20 10/23/20 Range/Units 05:38 10:52 11:59 D-Dimer 1.01 H (<0.60) mg/L FEU Glucose 118 H (70-110) mg/dL POC Glucose (mg/dL) 151 H (75-99) mg/dL Calcium 8.5 L (8.7-10.3) mg/dL Magnesium 1.4 L (1.5-2.4) mg/dL 10/23/20 10/23/20 10/24/20 Range/Units 17:09 20:48 07:22 D-Dimer (<0.60) mg/L FEU Glucose (70-110) mg/dL POC Glucose (mg/dL) 154 H 159 H 113 H (75-99) mg/dL Calcium (8.7-10.3) mg/dL Magnesium (1.5-2.4) mg/dL Assessment and Plan Assessment: Bilateral pneumonia with possible hospital-acquired pneumonia with acute hypoxic respiratory failure with possible sepsis, present on admission Diarrhea and was positive for Clostridium difficile Recent Covid 19 pneumonia with acute hypoxic respiratory failure. Treated with multiple modalities including convalescent plasma as well as Remdesivir mediastinal emphysema, present on admission Hypomagnesemia Covid 19 presently positive Elevated lactic acid, possibly secondary to sepsis, present on admission Elevated bilirubin, ALT AST, possibility of hepatitis associated with Covid 19 Elevated LDH Troponin 0.046, possibly associated with myocardial involvement secondary to Covid 19 Hypoalbuminemia with mild protein calorie malnutrition Elevated pro calcitonin Hyponatremia Thrombocytopenia increased white blood count History of asthma, intermittent history of GERD Hyperlipidemia history of pneumonia History of prostate disorder, cancer history of asbestos exposure History of appendectomy History of posttraumatic stress disorder Body mass index of 43.4 obesity Full code Recommendations and discussion: Recommend continue current medications, management, and symptomatic treatment. Continue with oral vancomycin and Questran added for continued loose stools. To complete a 10 day course of vancomycin. Loose stool slightly improved. Multiple medical consultations following. Patient is working with PT/OT with the possibility of ECF as patient continues to be quite weak and unsteady with gait. Patient continues to be severely dyspneic and oxygen saturations drop with minimal exertion. Electrolytes replaced per protocol and will repeat labs. Current labs pending at this time. Will continue to monitor closely. Further recommendations to follow. Awaiting for insurance authorization for [facility] on [address]. Prognosis is guarded.
[2020-10-24 10:52] LABS: Glucose,Whole Blood 156 mg/dL (75-99)
[2020-10-24] MEDS: BENZONATATE 100 MG CAP PO PRN ×2 (11:22→19:06)
[2020-10-24 11:56] LABS: African American GFR (CKD) 128.4 (60.0-200.0); Calcium 8.5 mg/dL (8.7-10.3); Magnesium 1.4 mg/dL (1.5-2.4); Non-African American GFR(CKD) 110.8 (60.0-200.0); Potassium 3.9 mmol/L (3.5-5.5)
[2020-10-24 17:06] LABS: Glucose,Whole Blood 155 mg/dL (75-99)
--- NOTE | 2020-10-24 18:22 | PN ---
PROGRESS NOTE DATE OF SERVICE: 10/24/2020 REASON FOR FOLLOWUP: C difficile colitis. INTERVAL HISTORY: The patient is currently afebrile. The patient is breathing comfortably. The patient denies having any chest pain or shortness of breath. Occasional cough. No abdominal pain. Diarrhea has slowed down. About two loose stools today. PHYSICAL EXAMINATION: Blood pressure 142/74 with a pulse of 91, temperature 97.4. He is 94% on 2 L nasal cannula. General description is a middle-aged male up in the room in no distress. RESPIRATORY SYSTEM: Unlabored breathing with decreased intensity of breath sounds. No wheeze. HEART: S1, S2. Regular rate and rhythm. ABDOMEN: Soft. No tenderness. LABS: BUN of 12, creatinine 0.6. DIAGNOSTIC IMPRESSION AND PLAN: Patient with Clostridium difficile colitis, currently on oral vancomycin and Questran; to continue. Advised to increase the probiotic and yogurt intake. Continue supportive care. MMODL / IJN: [id number] /
[2020-10-24] MEDS: SODIUM CHLORIDE 0.9% 1,000 ML IV SCH (19:00)
[2020-10-24] MEDS: HYDROCORTISONE 10 MG TAB PO SCH (19:06)
[2020-10-24] MEDS: traZODone HCL 50 MG TAB PO SCH (20:06)
[2020-10-24] MEDS: ALPRAZolam 0.25 MG TAB PO PRN (20:06)
[2020-10-24 20:29] LABS: Glucose,Whole Blood 203 mg/dL (75-99)
[2020-10-24] MEDS: INSULIN DETEMIR (LEVEMIR) 100 UNIT/ML SYR SQ SCH (20:54)
[2020-10-25] MEDS: CHERRY FLAVOR 60 ML BOTTLE PO SCH ×4 (05:16→23:31)
[2020-10-25] MEDS: VANCOMYCIN ORAL SOLUTION 250 MG/5 ML BOTTLE PO SCH ×4 (05:16→23:31)
[2020-10-25] MEDS ORDERED: Magnesium Replacement Protocol 1 EACH MISC MISCELLANE PRN (07:14)
[2020-10-25] MEDS: ALBUTEROL HFA INHALER INHALATION SCH ×4 (07:18→20:09)
[2020-10-25 07:32] LABS: Glucose,Whole Blood 136 mg/dL (75-99)
[2020-10-25] MEDS: INSULIN ASPART (NovoLOG) 100 UNIT/ML VIAL SQ SCH ×4 (07:36→21:04)
[2020-10-25] MEDS: MAGNESIUM SULFATE-D5W PMX 1 GM in DEXTROSE/WATER 1 100ML.BAG IVPB SCH ×2 (08:10→08:36)
[2020-10-25] MEDS: MAGNESIUM OXIDE 400 MG TAB PO SCH (08:11)
[2020-10-25] MEDS: FUROSEMIDE 40 MG TAB PO SCH (08:11)
[2020-10-25] MEDS: THIAMINE 100 MG TAB PO SCH (08:11)
[2020-10-25] MEDS: ASCORBIC ACID 500 MG TAB PO SCH (08:11)
[2020-10-25] MEDS: ENOXAPARIN 40 MG/0.4 ML SYRINGE SQ SCH (08:11)
[2020-10-25] MEDS: ASPIRIN 81 MG PO SCH (08:11)
[2020-10-25] MEDS: FAMOTIDINE 20 MG TAB PO SCH (08:11)
[2020-10-25] MEDS: FOLIC ACID 1 MG TAB PO SCH (08:11)
[2020-10-25] MEDS: POTASSIUM CHLORIDE ER 10 MEQ TAB.ER.PRT PO SCH (08:12)
[2020-10-25] MEDS: amLODIPine 5 MG TAB PO SCH (08:12)
[2020-10-25] MEDS: MULTIVITAMINS, THERA 1 EACH TAB PO SCH (08:12)
[2020-10-25] MEDS: ATORVASTATIN 80 MG TAB PO SCH (08:12)
[2020-10-25] MEDS: ZINC SULFATE 220 MG CAP PO SCH (08:12)
[2020-10-25] MEDS: NYSTATIN 100,000 UNIT/ML SUSP 500,000 UNIT/5 ML CUP PO SCH ×4 (08:15→21:04)
[2020-10-25] MEDS: HYDROCORTISONE 20 MG TAB PO SCH (08:15)
[2020-10-25] MEDS: CHOLESTYRAMINE (WITH SUGAR) 4 GM PACKET PO SCH ×2 (08:16→21:04)
[2020-10-25] MEDS ORDERED: MAGNESIUM OXIDE 400 MG TAB PO STA (08:44)
[2020-10-25 11:29] LABS: Glucose,Whole Blood 139 mg/dL (75-99)
[2020-10-25] MEDS: SYMBICORT 160-4.5 MCG INHALER INHALATION SCH ×2 (11:56→20:09)
[2020-10-25] MEDS: buPROPion 75 MG TAB PO SCH (12:02)
[2020-10-25] MEDS: CHOLECALCIFEROL 400 UNIT TAB PO SCH (12:04)
--- NOTE | 2020-10-25 13:19 | P.PN ---
Subjective Progress Note Date: 10/25/20 This is a 59-year-old male who was recently admitted with bilateral pneumonia as well as possible acute pneumonia who had also recently underwent extended hospitalization with Covid 19 pneumonia. Patient was admitted with significant pneumonia possibly healthcare associated as well as pneumomediastinum. Patient was on IV antibiotics being followed by infectious disease. Antibiotics have since been discontinued and being closely monitored off of antibiotics. Pulmonary is following as well. Patient continues to be significantly short of breath with exertion and continues to be weak. Patient was seen and evaluated by PT/OT and became severely dyspneic in the low 80s. Patient is quite weak and requiring a walker with minimal exertion. Case management and social work following for possible ECF placement 10/21/2020 Patient is seen and evaluated and follow-up and continues to be closely sona tored. Patient continues to be dyspneic with exertion and is currently maintained on 3-4 L of oxygen via nasal cannula. Multiple medical consultations following. Per nursing staff patient had multiple episodes of diarrhea today and a stool sample is sent and is positive for C. diff. Patient will be started on oral vancomycin 4 times daily and will continue to monitor. Patient has been accepted to [facility] for continued PT/OT therapy although awaiting for insurance authorization. Case management and social work following and working on discharge planning. 10/22/2020 Patient is seen in follow-up and is currently maintained on oral antibiotics in the form of vancomycin as he was positive for C. diff colitis. Infectious disease is following. Patient has been off of IV antibiotics and being closely monitored. Patient continues to be dyspneic with exertion and oxygen satur ations dropped although currently maintained on 2-3 L of oxygen via nasal cannula and oxygen saturation is 94% while resting. Potassium was found to be 3.3 today and being replaced. Will repeat a.m. labs. Social work following awaiting authorization from insurance for possible ECF placement once stabilized and discharged. 10/23/2020 Patient is seen and evaluated in follow-up and d-dimer was found to be elevated at 1.01 and venous Doppler was ordered a bilateral lower extremities. Results were negative for DVTs of lower extremities. Patient is maintained on Lovenox and will continue at this time. Potassium improved and is 3.8. Magnesium is 1.4 and will be replaced. Will repeat labs. Patient continues to be extremely dyspneic with exertion and instructed to continue using incentive spirometer and increasing activity as tolerated. Patient has been accepted at [facility] [address] although is awaiting authorization from insurance. Case management and social work following. 10/24/2020 Patient seen in follow-up with no acute overnight issues. Patient is maintained on Lovenox, vitamin C and D supplementation, zinc and will continue at this time. Infectious disease is following. Repeat labs from this morning are pending. Patient's potassium has been replaced and magnesium and will follow- up. Patient has a cough with minimal phlegm production and is maintained on 2-3 L of oxygen. Repeat a.m. chest x-ray and continue to monitor closely. Patient encouraged to increase activity as tolerated and continue with the use of the incentive spirometer at least 10 times every hour while awake. 10/25/2020 Patient seen this morning sitting up in the chair currently coughing with minimal phlegm production. Incentive spirometer at the bedside. Magnesium currently being replaced by mouth and will repeat magnesium in the am. Patient has no IV access at this time. All other medications have been transitioned to oral. Patient continues on oral vanco and states that the loose stool has decreased and only going a few times a day. Patient continues to await for insurance authorization for rehab placement for continued PT/OT therapy. PT/OT is following. Review of systems: Constitutional: No reports of fatigue, fever, or chills Cardiovascular: No reports of chest pain or palpitations Respiratory: Reports shortness of breath, and continued cough GI: No reports of nausea, vomiting, reports a decrease amount of episodes of diarrhea : No reports of dysuria or retention Neurovascular: Reports weakness All medications have been reviewed Active Medications Albuterol Sulfate (Albuterol Hfa Inhaler) 2 puff INHALATION RT-QID [facility] Last Admin: 10/25/20 11:45 Dose: 2 puff Documented by: Alprazolam (Alprazolam 0.25 Mg Tab) 0.25 mg PO HS PRN PRN Reason: Anxiety Last Admin: 10/24/20 20:06 Dose: 0.25 mg Documented by: Amlodipine Besylate (Amlodipine 5 Mg Tab) 5 mg PO DAILY [facility] Last Admin: 10/25/20 08:12 Dose: 5 mg Documented by: Ascorbic Acid (Ascorbic Acid 500 Mg Tab) 1,000 mg PO DAILY [facility] Last Admin: 10/25/20 08:11 Dose: 1,000 mg Documented by: Aspirin (Aspirin 81 Mg) 81 mg PO DAILY [facility] Last Admin: 10/25/20 08:11 Dose: 81 mg Documented by: Atorvastatin Calcium (Atorvastatin 80 Mg Tab) 80 mg PO DAILY [facility] Last Admin: 10/25/20 08:12 Dose: 80 mg Documented by: Benzonatate (Benzonatate 100 Mg Cap) 200 mg PO TID PRN PRN Reason: Cough Last Admin: 10/24/20 19:06 Dose: 200 mg Documented by: Budesonide/Formoterol Fumarate (Symbicort 160-4.5 Mcg Inhaler) 2 puff INHALATION RT-BID [facility] Last Admin: 10/25/20 11:56 Dose: Not Given Documented by: Bupropion HCl (Bupropion 75 Mg Tab) 150 mg PO DAILY [facility] Last Admin: 10/25/20 12:02 Dose: 150 mg Documented by: Hills Syrup (Hills Flavor 60 Ml Bottle) 5 ml PO Q6HR [facility] Last Admin: 10/25/20 12:04 Dose: 5 ml Documented by: Cholecalciferol (Cholecalciferol 400 Unit Tab) 400 unit PO DAILY [facility] Last Admin: 10/25/20 12:04 Dose: 400 unit Documented by: Cholestyramine Resin (Cholestyramine (With Sugar) 4 Gm Packet) 4 gm PO BID@1000,2100 [facility] Last Admin: 10/25/20 08:16 Dose: 4 gm Documented by: Enoxaparin Sodium (Enoxaparin 40 Mg/0.4 Ml Syringe) 40 mg SQ DAILY [facility] Last Admin: 10/25/20 08:11 Dose: 40 mg Documented by: Famotidine (Famotidine 20 Mg Tab) 40 mg PO DAILY [facility] Last Admin: 10/25/20 08:11 Dose: 40 mg Documented by: Folic Acid (Folic Acid 1 Mg Tab) 1 mg PO DAILY@1200 [facility] Last Admin: 10/25/20 08:11 Dose: 1 mg Documented by: Furosemide (Furosemide 40 Mg Tab) 40 mg PO DAILY [facility] Last Admin: 10/25/20 08:11 Dose: 40 mg Documented by: Hydrocortisone (Hydrocortisone 10 Mg Tab) 10 mg PO DAILY@1900 [facility] Last Admin: 10/24/20 19:06 Dose: 10 mg Documented by: Hydrocortisone (Hydrocortisone 20 Mg Tab) 20 mg PO DAILY [facility] Last Admin: 10/25/20 08:15 Dose: 20 mg Documented by: Sodium Chloride (Saline 0.9%) 1,000 mls @ 20 mls/hr IV .Q24H [facility] Last Admin: 10/24/20 19:00 Dose: Not Given Documented by: Insulin Aspart (Insulin Aspart (Novolog) 100 Unit/Ml Vial) 0 unit SQ ACHS [facility]; Protocol Last Admin: 10/25/20 11:47 Dose: Not Given Documented by: Insulin Detemir (Insulin Detemir (Levemir) 100 Unit/Ml Syr) 30 unit SQ [facility] Last Admin: 10/24/20 20:54 Dose: 30 unit Documented by: Magnesium Oxide (Magnesium Oxide 400 Mg Tab) 400 mg PO DAILY [facility] Last Admin: 10/25/20 08:11 Dose: 400 mg Documented by: Miscellaneous Information (Magnesium Replacement Protocol 1 Each Misc) 1 each MISCELLANE DAILY PRN; Protocol PRN Reason: Per Protocol Miscellaneous Information (Potassium Replacement Protocol 1 Each Misc) 1 each MISCELLANE DAILY PRN; Protocol PRN Reason: Per Protocol Miscellaneous Information (Magnesium Replacement Protocol 1 Each Misc) 1 each MISCELLANE DAILY PRN; Protocol PRN Reason: Per Protocol Multivitamins (Multivitamins, Thera 1 Each Tab) 1 each PO DAILY@1200 [facility] Last Admin: 10/25/20 08:12 Dose: 1 each Documented by: Naloxone HCl (Naloxone 0.4 Mg/Ml 1 Ml Vial) 0.2 mg IV Q2M PRN PRN Reason: Opioid Reversal Nystatin (Nystatin 100,000 Unit/Ml Susp 500,000 Unit/5 Ml Cup) 500,000 unit PO QID [facility] Last Admin: 10/25/20 12:02 Dose: 500,000 unit Documented by: Potassium Chloride (Potassium Chloride Er 10 Meq Tab.Er.Prt) 10 meq PO DAILY [facility] Last Admin: 10/25/20 08:12 Dose: 10 meq Documented by: Thiamine HCl (Thiamine 100 Mg Tab) 100 mg PO DAILY@1200 [facility] Last Admin: 10/25/20 08:11 Dose: 100 mg Documented by: Trazodone HCl (Trazodone Hcl 50 Mg Tab) 50 mg PO [facility] Last Admin: 10/24/20 20:06 Dose: 50 mg Documented by: Vancomycin HCl (Vancomycin Oral Solution 250 Mg/5 Ml Bottle) 250 mg PO Q6HR [facility] Last Admin: 10/25/20 12:04 Dose: 250 mg Documented by: Zinc Sulfate (Zinc Sulfate 220 Mg Cap) 220 mg PO DAILY [facility] Last Admin: 10/25/20 08:12 Dose: 220 mg Documented by: Objective - Vital Signs Vital signs: Vital Signs Temp 98.3 F 10/25/20 04:06 Pulse 86 10/25/20 04:06 Resp 20 10/25/20 04:06 BP 112/62 10/25/20 04:06 Pulse Ox 93 L 10/25/20 07:18 Intake & Output 10/24/20 10/25/20 10/25/20 18:59 06:59 18:59 Intake Total 800 600 Balance 800 600 Intake: Oral 800 600 Other: Voiding Method Urinal Toilet Urinal # Voids 3 3 - Exam Gen: This is a 59-year-old male awake, alert and oriented 3, well-developed, well-nourished, obese. Temp is 97.9F, pulse is 96, respirations are 17, blood pressure is 140/80, oxygen saturation is 92% on 2 L via nasal cannula. HEENT: Head is atraumatic, normocephalic. Pupils equal, round. Sclerae is anicteric. NECK: Supple. No JVD. No lymphadenopathy. No thyromegaly. LUNGS: Diminished breath sounds bilaterally with no wheezing or rhonchi noted. No intercostal retractions. HEART: S1 , S2 are muffled ABDOMEN: Soft. Obese. Bowel sounds are present. No masses. No tenderness. EXTREMITIES: No pedal edema. No calf tenderness. NEUROLOGICAL: Patient is awake, alert and oriented x3. Cranial nerves 2 through 12 are grossly intact. Diffusely weak - Labs CBC & Chem 7: 10/20/20 07:43 10/24/20 06:12 Labs: Abnormal Lab Results - Last 24 Hours (Table) 10/24/20 10/24/20 10/24/20 Range/Units 06:12 10:51 16:53 Carbon Dioxide 32.0 H (21.6-31.8) mmol/L POC Glucose (mg/dL) 156 H 155 H (75-99) mg/dL Calcium 8.5 L (8.7-10.3) mg/dL Magnesium 1.4 L (1.5-2.4) mg/dL 10/24/20 10/25/20 Range/Units 20:28 07:31 Carbon Dioxide (21.6-31.8) mmol/L POC Glucose (mg/dL) 203 H 136 H (75-99) mg/dL Calcium (8.7-10.3) mg/dL Magnesium (1.5-2.4) mg/dL Assessment and Plan Assessment: Bilateral pneumonia with possible hospital-acquired pneumonia with acute hypoxic respiratory failure with possible sepsis, present on admission Diarrhea and was positive for Clostridium difficile Recent Covid 19 pneumonia with acute hypoxic respiratory failure. Treated with multiple modalities including convalescent plasma as well as Remdesivir mediastinal emphysema, present on admission Hypomagnesemia Covid 19 presently positive Elevated lactic acid, possibly secondary to sepsis, present on admission Elevated bilirubin, ALT AST, possibility of hepatitis associated with Covid 19 Elevated LDH Troponin 0.046, possibly associated with myocardial involvement secondary to Co vid 19 Hypoalbuminemia with mild protein calorie malnutrition Elevated pro calcitonin Hyponatremia Thrombocytopenia increased white blood count History of asthma, intermittent history of GERD Hyperlipidemia history of pneumonia History of prostate disorder, cancer history of asbestos exposure History of appendectomy History of posttraumatic stress disorder Body mass index of 43.4 obesity Full code Recommendations and discussion: Recommend continue current medications, management, and symptomatic treatment. Continue with oral vancomycin and Questran added for continued loose stools. To complete a 10 day course of vancomycin. Loose stool continues to improve. Multiple medical consultations following. Patient is working with PT/OT with the possibility of ECF as patient continues to be quite weak and unsteady with gait. Patient continues to be severely dyspneic and oxygen saturations drop with minimal exertion. Electrolytes replaced per protocol and will repeat labs. Magnesium was 1.4 and being replaced. Will continue to monitor closely. Further recommendations to follow. Awaiting for insurance authorization for [facility] [address]. Prognosis is guarded. Possible discharge in 24 hours.
[2020-10-25 17:06] LABS: Glucose,Whole Blood 128 mg/dL (75-99)
[2020-10-25] MEDS: SODIUM CHLORIDE 0.9% 1,000 ML IV SCH (19:00)
[2020-10-25] MEDS: HYDROCORTISONE 10 MG TAB PO SCH (19:09)
[2020-10-25] MEDS: ALPRAZolam 0.25 MG TAB PO PRN (19:59)
[2020-10-25] MEDS: BENZONATATE 100 MG CAP PO PRN (19:59)
[2020-10-25] MEDS: traZODone HCL 50 MG TAB PO SCH (20:00)
[2020-10-25 20:48] LABS: Glucose,Whole Blood 205 mg/dL (75-99)
[2020-10-25] MEDS: INSULIN DETEMIR (LEVEMIR) 100 UNIT/ML SYR SQ SCH (21:04)
--- NOTE | 2020-10-25 22:01 | PN ---
PROGRESS NOTE DATE OF SERVICE: 10/25/2020 REASON FOR FOLLOWUP: C difficile colitis. INTERVAL HISTORY: The patient is currently afebrile. The patient is breathing comfortably. He continues to have a cough which has been mostly moderate and dry in nature. No nausea. No vomiting. No abdominal pain. Diarrhea has slowed down and slightly forming up. PHYSICAL EXAMINATION: Blood pressure 139/76, pulse of 93, temperature 97.9. He is 96% on 2 L nasal cannula. General description is a middle-aged male up in the chair in no distress. RESPIRATORY SYSTEM: Unlabored breathing with decreased intensity of breath sounds. No wheeze. HEART: S1, S2. Regular rate and rhythm. ABDOMEN: Soft. No tenderness. LABS: No new labs have been obtained today. DIAGNOSTIC IMPRESSION AND PLAN: Patient with Clostridium difficile colitis, currently on oral vancomycin to finish his 10-day course along with Questran for symptomatic relief. Advised to increase his probiotic and yogurt intake. Continue with supportive care. MMODL / IJN: [id number] /
[2020-10-26] MEDS: VANCOMYCIN ORAL SOLUTION 250 MG/5 ML BOTTLE PO SCH ×3 (05:22→18:10)
[2020-10-26] MEDS: CHERRY FLAVOR 60 ML BOTTLE PO SCH ×3 (05:23→18:11)
[2020-10-26 07:14] LABS: Glucose,Whole Blood 104 mg/dL (75-99)
[2020-10-26] MEDS: SYMBICORT 160-4.5 MCG INHALER INHALATION SCH ×2 (07:38→19:59)
[2020-10-26] MEDS: ALBUTEROL HFA INHALER INHALATION SCH ×4 (07:38→19:58)
[2020-10-26] MEDS: INSULIN ASPART (NovoLOG) 100 UNIT/ML VIAL SQ SCH ×4 (07:56→20:54)
[2020-10-26] MEDS: ENOXAPARIN 40 MG/0.4 ML SYRINGE SQ SCH (08:54)
[2020-10-26] MEDS: CHOLESTYRAMINE (WITH SUGAR) 4 GM PACKET PO SCH ×2 (08:54→20:53)
[2020-10-26] MEDS: FUROSEMIDE 40 MG TAB PO SCH (08:54)
[2020-10-26] MEDS: MAGNESIUM OXIDE 400 MG TAB PO SCH (08:55)
[2020-10-26] MEDS: POTASSIUM CHLORIDE ER 10 MEQ TAB.ER.PRT PO SCH (08:55)
[2020-10-26] MEDS: FAMOTIDINE 20 MG TAB PO SCH (08:55)
[2020-10-26] MEDS: ATORVASTATIN 80 MG TAB PO SCH (08:55)
[2020-10-26] MEDS: ASPIRIN 81 MG PO SCH (08:55)
[2020-10-26] MEDS: ASCORBIC ACID 500 MG TAB PO SCH (08:55)
[2020-10-26] MEDS: ZINC SULFATE 220 MG CAP PO SCH (08:55)
[2020-10-26] MEDS: amLODIPine 5 MG TAB PO SCH (08:55)
[2020-10-26] MEDS: buPROPion 75 MG TAB PO SCH (08:56)
[2020-10-26] MEDS: HYDROCORTISONE 20 MG TAB PO SCH (08:56)
[2020-10-26] MEDS: CHOLECALCIFEROL 400 UNIT TAB PO SCH (08:57)
[2020-10-26] MEDS: NYSTATIN 100,000 UNIT/ML SUSP 500,000 UNIT/5 ML CUP PO SCH ×4 (08:57→20:53)
[2020-10-26] MEDS ORDERED: MAGNESIUM OXIDE 400 MG TAB PO STA (11:02)
[2020-10-26 11:35] LABS: Glucose,Whole Blood 145 mg/dL (75-99)
[2020-10-26] MEDS: FOLIC ACID 1 MG TAB PO SCH (12:39)
[2020-10-26] MEDS: MULTIVITAMINS, THERA 1 EACH TAB PO SCH (12:39)
[2020-10-26] MEDS: THIAMINE 100 MG TAB PO SCH (12:39)
--- NOTE | 2020-10-26 13:38 | P.PN ---
Subjective Progress Note Date: 10/26/20 HISTORY OF PRESENT ILLNESS This is a 59-year-old male was been admitted to the hospital and carla morales for C. difficile colitis. Patient has been on treatment with oral vancomycin with improvement of his diarrhea. He had 2 formed bowel movements this morning. He is taking yogurt with his meals. He denies shortness of breath. He has a cough during the evaluation although he denies having a cough. Patient has been afebrile, heart rate 94, blood pressure 125/64, pulse ox 95% on 2 L nasal cannula. PHYSICAL EXAMINATION Gen: This is a morbidly obese 59-year-old male. HEENT: Head is atraumatic, normocephalic. Pupils equal, round. Sclerae is anicteric. NECK: Supple. No JVD. No lymphadenopathy. LUNGS: Clear to auscultation. No wheezes or rhonchi. No intercostal retractions . HEART: Regular rate and rhythm. No murmur. ABDOMEN: Soft. Bowel sounds are present. No masses. No tenderness. EXTREMITIES: No pedal edema. No calf tenderness. NEUROLOGICAL: Patient is awake, alert and oriented x3. ASSESSMENT C. difficile colitis. Recent treatment for COVID-19 pneumonia in September PLAN Continue oral vancomycin Continue yogurt and probiotics The above dictated assessment and findings were discussed with Dr. Rucker. The impression and plan of care have been directed as dictated. Linnea Shipman nurse practitioner acting as scribe for Dr. Rucker. Objective - Vital Signs Vital signs: Vital Signs Temp 98.7 F 10/26/20 10:59 Pulse 94 10/26/20 10:59 Resp 18 10/26/20 10:59 BP 125/64 10/26/20 10:59 Pulse Ox 95 10/26/20 10:59 Intake & Output 10/25/20 10/26/20 10/26/20 18:59 06:59 18:59 Intake Total 1200 Balance 1200 Intake: Oral 1200 Other: Voiding Method Toilet Toilet Toilet Urinal Urinal Urinal # Voids 3 - Labs CBC & Chem 7: 10/20/20 07:43 10/24/20 06:12 Labs: Abnormal Lab Results - Last 24 Hours (Table) 10/25/20 10/25/20 10/26/20 Range/Units 17:05 20:47 07:10 POC Glucose (mg/dL) 128 H 205 H 104 H (75-99) mg/dL 10/26/20 Range/Units 11:32 POC Glucose (mg/dL) 145 H (75-99) mg/dL
--- NOTE | 2020-10-26 16:30 | P.PN ---
Subjective Progress Note Date: 10/26/20 This is a 59-year-old male who was recently admitted with bilateral pneumonia as well as possible acute pneumonia who had also recently underwent extended hospitalization with Covid 19 pneumonia. Patient was admitted with significant pneumonia possibly healthcare associated as well as pneumomediastinum. Patient was on IV antibiotics being followed by infectious disease. Antibiotics have since been discontinued and being closely monitored off of antibiotics. Pulmonary is following as well. Patient continues to be significantly short of breath with exertion and continues to be weak. Patient was seen and evaluated by PT/OT and became severely dyspneic in the low 80s. Patient is quite weak and requiring a walker with minimal exertion. Case management and social work following for possible ECF placement 10/21/2020 Patient is seen and evaluated and follow-up and continues to be closely sona tored. Patient continues to be dyspneic with exertion and is currently maintained on 3-4 L of oxygen via nasal cannula. Multiple medical consultations following. Per nursing staff patient had multiple episodes of diarrhea today and a stool sample is sent and is positive for C. diff. Patient will be started on oral vancomycin 4 times daily and will continue to monitor. Patient has been accepted to [facility] for continued PT/OT therapy although awaiting for insurance authorization. Case management and social work following and working on discharge planning. 10/22/2020 Patient is seen in follow-up and is currently maintained on oral antibiotics in the form of vancomycin as he was positive for C. diff colitis. Infectious disease is following. Patient has been off of IV antibiotics and being closely monitored. Patient continues to be dyspneic with exertion and oxygen satur ations dropped although currently maintained on 2-3 L of oxygen via nasal cannula and oxygen saturation is 94% while resting. Potassium was found to be 3.3 today and being replaced. Will repeat a.m. labs. Social work following awaiting authorization from insurance for possible ECF placement once stabilized and discharged. 10/23/2020 Patient is seen and evaluated in follow-up and d-dimer was found to be elevated at 1.01 and venous Doppler was ordered a bilateral lower extremities. Results were negative for DVTs of lower extremities. Patient is maintained on Lovenox and will continue at this time. Potassium improved and is 3.8. Magnesium is 1.4 and will be replaced. Will repeat labs. Patient continues to be extremely dyspneic with exertion and instructed to continue using incentive spirometer and increasing activity as tolerated. Patient has been accepted at [facility] the [place] although is awaiting authorization from insurance. Case management and social work following. 10/24/2020 Patient seen in follow-up with no acute overnight issues. Patient is maintained on Lovenox, vitamin C and D supplementation, zinc and will continue at this time. Infectious disease is following. Repeat labs from this morning are pending. Patient's potassium has been replaced and magnesium and will follow- up. Patient has a cough with minimal phlegm production and is maintained on 2-3 L of oxygen. Repeat a.m. chest x-ray and continue to monitor closely. Patient encouraged to increase activity as tolerated and continue with the use of the incentive spirometer at least 10 times every hour while awake. 10/25/2020 Patient seen this morning sitting up in the chair currently coughing with minimal phlegm production. Incentive spirometer at the bedside. Magnesium currently being replaced by mouth and will repeat magnesium in the am. Patient has no IV access at this time. All other medications have been transitioned to oral. Patient continues on oral vanco and states that the loose stool has decreased and only going a few times a day. Patient continues to await for insurance authorization for rehab placement for continued PT/OT therapy. PT/OT is following. 10/26/2020 Patient is seen and evaluated this morning magnesium continues to be low at 1.5 and currently being replaced.. Infectious disease are following. Patient continues to state he is weak and gait is unsteady and continues to have bilateral lower extremity edema noted with some left knee and leg pain. Patient is currently on 2 L of oxygen via nasal cannula and will continue. Patient continues to have a cough with minimal phlegm production. Apparently patient had additional paperwork that was needed by insurance as they continue to work on authorization for patient go to rehab. Patient is maintained on oral vancomycin for C. diff colitis and will continue to complete the course. Will repeat a.m. labs. Review of systems: Constitutional: No reports of fatigue, fever, or chills Cardiovascular: No reports of chest pain or palpitations Respiratory: Reports shortness of breath, and continued cough GI: No reports of nausea, vomiting, reports a decrease amount of episodes of diarrhea : No reports of dysuria or retention Neurovascular: Reports weakness All medications have been reviewed Active Medications Albuterol Sulfate (Albuterol Hfa Inhaler) 2 puff INHALATION RT-QID [facility] Last Admin: 10/26/20 15:19 Dose: 2 puff Documented by: Alprazolam (Alprazolam 0.25 Mg Tab) 0.25 mg PO HS PRN PRN Reason: Anxiety Last Admin: 10/25/20 19:59 Dose: 0.25 mg Documented by: Amlodipine Besylate (Amlodipine 5 Mg Tab) 5 mg PO DAILY [facility] Last Admin: 10/26/20 08:55 Dose: 5 mg Documented by: Ascorbic Acid (Ascorbic Acid 500 Mg Tab) 1,000 mg PO DAILY [facility] Last Admin: 10/26/20 08:55 Dose: 1,000 mg Documented by: Aspirin (Aspirin 81 Mg) 81 mg PO DAILY [facility] Last Admin: 10/26/20 08:55 Dose: 81 mg Documented by: Atorvastatin Calcium (Atorvastatin 80 Mg Tab) 80 mg PO DAILY [facility] Last Admin: 10/26/20 08:55 Dose: 80 mg Documented by: Benzonatate (Benzonatate 100 Mg Cap) 200 mg PO TID PRN PRN Reason: Cough Last Admin: 10/25/20 19:59 Dose: 200 mg Documented by: Budesonide/Formoterol Fumarate (Symbicort 160-4.5 Mcg Inhaler) 2 puff INHALATION RT-BID [facility] Last Admin: 10/26/20 07:38 Dose: Not Given Documented by: Bupropion HCl (Bupropion 75 Mg Tab) 150 mg PO DAILY [facility] Last Admin: 10/26/20 08:56 Dose: 150 mg Documented by: Hills Syrup (Hills Flavor 60 Ml Bottle) 5 ml PO Q6HR [facility] Last Admin: 10/26/20 12:39 Dose: 5 ml Documented by: Cholecalciferol (Cholecalciferol 400 Unit Tab) 400 unit PO DAILY [facility] Last Admin: 10/26/20 08:57 Dose: 400 unit Documented by: Cholestyramine Resin (Cholestyramine (With Sugar) 4 Gm Packet) 4 gm PO BID@1000,2100 [facility] Last Admin: 10/26/20 08:54 Dose: 4 gm Documented by: Enoxaparin Sodium (Enoxaparin 40 Mg/0.4 Ml Syringe) 40 mg SQ DAILY [facility] Last Admin: 10/26/20 08:54 Dose: 40 mg Documented by: Famotidine (Famotidine 20 Mg Tab) 40 mg PO DAILY [facility] Last Admin: 10/26/20 08:55 Dose: 40 mg Documented by: Folic Acid (Folic Acid 1 Mg Tab) 1 mg PO DAILY@1200 [facility] Last Admin: 10/26/20 12:39 Dose: 1 mg Documented by: Furosemide (Furosemide 40 Mg Tab) 40 mg PO DAILY [facility] Last Admin: 10/26/20 08:54 Dose: 40 mg Documented by: Hydrocortisone (Hydrocortisone 10 Mg Tab) 10 mg PO DAILY@1900 [facility] Last Admin: 10/25/20 19:09 Dose: 10 mg Documented by: Hydrocortisone (Hydrocortisone 20 Mg Tab) 20 mg PO DAILY [facility] Last Admin: 10/26/20 08:56 Dose: 20 mg Documented by: Sodium Chloride (Saline 0.9%) 1,000 mls @ 20 mls/hr IV .Q24H [facility] Last Admin: 10/25/20 19:00 Dose: Not Given Documented by: Insulin Aspart (Insulin Aspart (Novolog) 100 Unit/Ml Vial) 0 unit SQ [facility]; Protocol Last Admin: 10/26/20 12:39 Dose: 1 unit Documented by: Insulin Detemir (Insulin Detemir (Levemir) 100 Unit/Ml Syr) 30 unit SQ HS [facility] Last Admin: 10/25/20 21:04 Dose: 30 unit Documented by: Magnesium Oxide (Magnesium Oxide 400 Mg Tab) 400 mg PO DAILY [facility] Last Admin: 10/26/20 08:55 Dose: 400 mg Documented by: Miscellaneous Information (Magnesium Replacement Protocol 1 Each Misc) 1 each MISCELLANE DAILY PRN; Protocol PRN Reason: Per Protocol Miscellaneous Information (Potassium Replacement Protocol 1 Each Misc) 1 each MISCELLANE DAILY PRN; Protocol PRN Reason: Per Protocol Miscellaneous Information (Magnesium Replacement Protocol 1 Each Misc) 1 each MISCELLANE DAILY PRN; Protocol PRN Reason: Per Protocol Multivitamins (Multivitamins, Thera 1 Each Tab) 1 each PO DAILY@1200 [facility] Last Admin: 10/26/20 12:39 Dose: 1 each Documented by: Naloxone HCl (Naloxone 0.4 Mg/Ml 1 Ml Vial) 0.2 mg IV Q2M PRN PRN Reason: Opioid Reversal Nystatin (Nystatin 100,000 Unit/Ml Susp 500,000 Unit/5 Ml Cup) 500,000 unit PO QID [facility] Last Admin: 10/26/20 12:39 Dose: 500,000 unit Documented by: Potassium Chloride (Potassium Chloride Er 10 Meq Tab.Er.Prt) 10 meq PO DAILY [facility] Last Admin: 10/26/20 08:55 Dose: 10 meq Documented by: Thiamine HCl (Thiamine 100 Mg Tab) 100 mg PO DAILY@1200 [facility] Last Admin: 10/26/20 12:39 Dose: 100 mg Documented by: Trazodone HCl (Trazodone Hcl 50 Mg Tab) 50 mg PO HS [facility] Last Admin: 10/25/20 20:00 Dose: 50 mg Documented by: Vancomycin HCl (Vancomycin Oral Solution 250 Mg/5 Ml Bottle) 250 mg PO Q6HR [facility] Last Admin: 10/26/20 12:39 Dose: 250 mg Documented by: Zinc Sulfate (Zinc Sulfate 220 Mg Cap) 220 mg PO DAILY [facility] Last Admin: 10/26/20 08:55 Dose: 220 mg Documented by: Objective - Vital Signs Vital signs: Vital Signs Temp 98.7 F 10/26/20 10:59 Pulse 94 10/26/20 10:59 Resp 18 10/26/20 10:59 BP 125/64 10/26/20 10:59 Pulse Ox 95 10/26/20 10:59 Intake & Output 10/25/20 10/26/20 10/26/20 18:59 06:59 18:59 Intake Total 1200 Balance 1200 Intake: Oral 1200 Other: Voiding Method Toilet Toilet Toilet Urinal Urinal Urinal # Voids 3 - Exam Gen: This is a 59-year-old male awake, alert and oriented 3, well-developed, well-nourished, obese. Temp is 98.7F, pulse is 94, respirations are 18, blood pressure is 125/64, oxygen saturation is 95% on 2 L via nasal cannula. HEENT: Head is atraumatic, normocephalic. Pupils equal, round. Sclerae is ani cteric. NECK: Supple. No JVD. No lymphadenopathy. No thyromegaly. LUNGS: Diminished breath sounds bilaterally with no wheezing or rhonchi noted. No intercostal retractions. HEART: S1 , S2 are muffled ABDOMEN: Soft. Obese. Bowel sounds are present. No masses. No tenderness. EXTREMITIES: No pedal edema. No calf tenderness. Bilateral lower extremity edema noted with some left lower leg and knee pain on palpation NEUROLOGICAL: Patient is awake, alert and oriented x3. Cranial nerves 2 through 12 are grossly intact. Diffusely weak - Labs CBC & Chem 7: 10/20/20 07:43 10/24/20 06:12 Labs: Abnormal Lab Results - Last 24 Hours (Table) 10/25/20 10/25/20 10/26/20 Range/Units 17:05 20:47 07:10 POC Glucose (mg/dL) 128 H 205 H 104 H (75-99) mg/dL 10/26/20 Range/Units 11:32 POC Glucose (mg/dL) 145 H (75-99) mg/dL Assessment and Plan Assessment: Bilateral pneumonia with possible hospital-acquired pneumonia with acute hypoxic respiratory failure with possible sepsis, present on admission Diarrhea and was positive for Clostridium difficile Recent Covid 19 pneumonia with acute hypoxic respiratory failure. Treated with multiple modalities including convalescent plasma as well as Remdesivir mediastinal emphysema, present on admission Hypomagnesemia Covid 19 presently positive Elevated lactic acid, possibly secondary to sepsis, present on admission Elevated bilirubin, ALT AST, possibility of hepatitis associated with Covid 19 Elevated LDH Troponin 0.046, possibly associated with myocardial involvement secondary to Covid 19 Hypoalbuminemia with mild protein calorie malnutrition Elevated pro calcitonin Hyponatremia Thrombocytopenia increased white blood count History of asthma, intermittent history of GERD Hyperlipidemia history of pneumonia History of prostate disorder, cancer history of asbestos exposure History of appendectomy History of posttraumatic stress disorder Body mass index of 43.4 obesity Full code Recommendations and discussion: Recommend continue current medications, management, and symptomatic treatment. Continue with oral vancomycin and Questran added for continued loose stools. To complete a 10 day course of vancomycin. Loose stool continues to improve. Multiple medical consultations following. Patient is working with PT/OT with the possibility of ECF as patient continues to be quite weak and unsteady with gait. Patient continues to be severely dyspneic and oxygen saturations drop with minimal exertion. Electrolytes replaced per protocol and will repeat labs. Magnesium was 1.5 and being replaced. Will continue to monitor closely. Further recommendations to follow. Awaiting for insurance authorization for [facility]. Prognosis is guarded. Possible discharge in 24 hours.
[2020-10-26 18:10] LABS: Glucose,Whole Blood 139 mg/dL (75-99)
[2020-10-26] MEDS: SODIUM CHLORIDE 0.9% 1,000 ML IV SCH (19:07)
[2020-10-26] MEDS: HYDROCORTISONE 10 MG TAB PO SCH (19:25)
[2020-10-26] MEDS: BENZONATATE 100 MG CAP PO PRN (19:25)
[2020-10-26] MEDS: ALPRAZolam 0.25 MG TAB PO PRN (20:15)
[2020-10-26] MEDS: traZODone HCL 50 MG TAB PO SCH (20:15)
[2020-10-26] MEDS: INSULIN DETEMIR (LEVEMIR) 100 UNIT/ML SYR SQ SCH (20:53)
[2020-10-26 20:54] LABS: Glucose,Whole Blood 168 mg/dL (75-99)
[2020-10-27] MEDS: VANCOMYCIN ORAL SOLUTION 250 MG/5 ML BOTTLE PO SCH ×3 (00:20→12:49)
[2020-10-27] MEDS: CHERRY FLAVOR 60 ML BOTTLE PO SCH ×3 (00:20→12:49)
[2020-10-27 07:22] LABS: Glucose,Whole Blood 113 mg/dL (75-99)
[2020-10-27] MEDS: INSULIN ASPART (NovoLOG) 100 UNIT/ML VIAL SQ SCH ×2 (07:34→12:48)
[2020-10-27] MEDS: SYMBICORT 160-4.5 MCG INHALER INHALATION SCH (07:35)
[2020-10-27] MEDS: ALBUTEROL HFA INHALER INHALATION SCH ×3 (07:36→15:06)
[2020-10-27] MEDS: ATORVASTATIN 80 MG TAB PO SCH (09:01)
[2020-10-27] MEDS: THIAMINE 100 MG TAB PO SCH ×2 (09:01→12:50)
[2020-10-27] MEDS: MAGNESIUM OXIDE 400 MG TAB PO SCH (09:01)
[2020-10-27] MEDS: FUROSEMIDE 40 MG TAB PO SCH (09:01)
[2020-10-27] MEDS: FAMOTIDINE 20 MG TAB PO SCH (09:02)
[2020-10-27] MEDS: ASPIRIN 81 MG PO SCH (09:02)
[2020-10-27] MEDS: ZINC SULFATE 220 MG CAP PO SCH (09:02)
[2020-10-27] MEDS: MULTIVITAMINS, THERA 1 EACH TAB PO SCH (09:02)
[2020-10-27] MEDS: ASCORBIC ACID 500 MG TAB PO SCH (09:02)
[2020-10-27] MEDS: buPROPion 75 MG TAB PO SCH (09:03)
[2020-10-27] MEDS: CHOLECALCIFEROL 400 UNIT TAB PO SCH (09:03)
[2020-10-27] MEDS: HYDROCORTISONE 20 MG TAB PO SCH (09:03)
[2020-10-27] MEDS: POTASSIUM CHLORIDE ER 10 MEQ TAB.ER.PRT PO SCH (09:03)
[2020-10-27] MEDS: BENZONATATE 100 MG CAP PO PRN (09:03)
[2020-10-27] MEDS: CHOLESTYRAMINE (WITH SUGAR) 4 GM PACKET PO SCH (09:04)
[2020-10-27] MEDS: NYSTATIN 100,000 UNIT/ML SUSP 500,000 UNIT/5 ML CUP PO SCH ×2 (09:04→13:00)
[2020-10-27] MEDS: ENOXAPARIN 40 MG/0.4 ML SYRINGE SQ SCH (09:04)
[2020-10-27] MEDS: amLODIPine 5 MG TAB PO SCH (09:20)
[2020-10-27] MEDS ORDERED: MAGNESIUM OXIDE 400 MG TAB PO STA (11:13)
--- NOTE | 2020-10-27 12:18 | P.PN ---
<Nelly Bowen - Last Filed: 10/27/20 12:10> Subjective Progress Note Date: 10/27/20 This is a 59-year-old male who was recently admitted with bilateral pneumonia as well as possible acute pneumonia who had also recently underwent extended hospitalization with Covid 19 pneumonia. Patient was admitted with significant pneumonia possibly healthcare associated as well as pneumomediastinum. Patient was on IV antibiotics being followed by infectious disease. Antibiotics have since been discontinued and being closely monitored off of antibiotics. Pulmonary is following as well. Patient continues to be significantly short of breath with exertion and continues to be weak. Patient was seen and evaluated by PT/OT and became severely dyspneic in the low 80s. Patient is quite weak and requiring a walker with minimal exertion. Case management and social work following for possible ECF placement 10/21/2020 Patient is seen and evaluated and follow-up and continues to be closely monitored. Patient continues to be dyspneic with exertion and is currently maintained on 3-4 L of oxygen via nasal cannula. Multiple medical consultations following. Per nursing staff patient had multiple episodes of diarrhea today and a stool sample is sent and is positive for C. diff. Patient will be started on oral vancomycin 4 times daily and will continue to monitor. Patient has been accepted to [facility] for continued PT/OT therapy although awaiting for insurance authorization. Case management and social work following and working on discharge planning. 10/22/2020 Patient is seen in follow-up and is currently maintained on oral antibiotics in the form of vancomycin as he was positive for C. diff colitis. Infectious disease is following. Patient has been off of IV antibiotics and being closely monitored. Patient continues to be dyspneic with exertion and oxygen saturations dropped although currently maintained on 2-3 L of oxygen via nasal cannula and oxygen saturation is 94% while resting. Potassium was found to be 3.3 today and being replaced. Will repeat a.m. labs. Social work following awaiting authorization from insurance for possible ECF placement once stabilized and discharged. 10/23/2020 Patient is seen and evaluated in follow-up and d-dimer was found to be elevated at 1.01 and venous Doppler was ordered a bilateral lower extremities. Results were negative for DVTs of lower extremities. Patient is maintained on Lovenox and will continue at this time. Potassium improved and is 3.8. Magnesium is 1.4 and will be replaced. Will repeat labs. Patient continues to be extremely dyspneic with exertion and instructed to continue using incentive spirometer and increasing activity as tolerated. Patient has been accepted at [facility] on the [address] although is awaiting authorization from insurance. Case management and social work following. 10/24/2020 Patient seen in follow-up with no acute overnight issues. Patient is maintained on Lovenox, vitamin C and D supplementation, zinc and will continue at this time. Infectious disease is following. Repeat labs from this morning are pending. Patient's potassium has been replaced and magnesium and will follow- up. Patient has a cough with minimal phlegm production and is maintained on 2-3 L of oxygen. Repeat a.m. chest x-ray and continue to monitor closely. Patient encouraged to increase activity as tolerated and continue with the use of the incentive spirometer at least 10 times every hour while awake. 10/25/2020 Patient seen this morning sitting up in the chair currently coughing with minimal phlegm production. Incentive spirometer at the bedside. Magnesium currently being replaced by mouth and will repeat magnesium in the am. Patient has no IV access at this time. All other medications have been transitioned to oral. Patient continues on oral vanco and states that the loose stool has decreased and only going a few times a day. Patient continues to await for insurance authorization for rehab placement for continued PT/OT therapy. PT/OT is following. 10/26/2020 Patient is seen and evaluated this morning magnesium continues to be low at 1.5 and currently being replaced.. Infectious disease are following. Patient continues to state he is weak and gait is unsteady and continues to have bilateral lower extremity edema noted with some left knee and leg pain. Patient is currently on 2 L of oxygen via nasal cannula and will continue. Patient continues to have a cough with minimal phlegm production. Apparently patient had additional paperwork that was needed by insurance as they continue to work on authorization for patient go to rehab. Patient is maintained on oral vancomycin for C. diff colitis and will continue to complete the course. Will repeat a.m. labs. 10/27/2020 Patient is seen in follow-up this morning and repeat magnesium is 1.5. Patient will continue on magnesium oxide 800 mg daily and will replace. Patient continues to become dyspneic with exertion although states he feels is slightly improved from previous. Patient continues to have a cough that is dry in natur e. Patient is continued on oral vancomycin and has approximately 4 days remaining of treatment. Patient states the diarrhea has improved and bowel movements have been more formed. Patient continues to wait for authorization for insurance for rehab for continued PT/OT therapy for strength and mobility and PT/OT is following. Discussed with the patient about the possibility of being discharged home and will continue with home care in the outpatient setting if authorization is not obtained. Patient is aware of this treatment option. Blood sugars continue to be monitored and patient is maintained on sliding scale along with 30 units of long-acting and will continue at this time. Patient is on Cortef and will continue. Pulmonary is following along with infectious disease. Review of systems: Constitutional: No reports of fatigue, fever, or chills Cardiovascular: No reports of chest pain or palpitations Respiratory: Reports shortness of breath, and continued cough GI: No reports of nausea, vomiting, reports occasional episodes of loose stool although improved : No reports of dysuria or retention Neurovascular: Reports weakness All medications have been reviewed Active Medications Albuterol Sulfate (Albuterol Hfa Inhaler) 2 puff INHALATION RT-QID [facility] Last Admin: 10/27/20 11:33 Dose: 2 puff Documented by: Alprazolam (Alprazolam 0.25 Mg Tab) 0.25 mg PO HS PRN PRN Reason: Anxiety Last Admin: 10/26/20 20:15 Dose: 0.25 mg Documented by: Amlodipine Besylate (Amlodipine 5 Mg Tab) 5 mg PO DAILY [facility] Last Admin: 10/27/20 09:20 Dose: 5 mg Documented by: Ascorbic Acid (Ascorbic Acid 500 Mg Tab) 1,000 mg PO DAILY [facility] Last Admin: 10/27/20 09:02 Dose: 1,000 mg Documented by: Aspirin (Aspirin 81 Mg) 81 mg PO DAILY [facility] Last Admin: 10/27/20 09:02 Dose: 81 mg Documented by: Atorvastatin Calcium (Atorvastatin 80 Mg Tab) 80 mg PO DAILY [facility] Last Admin: 10/27/20 09:01 Dose: 80 mg Documented by: Benzonatate (Benzonatate 100 Mg Cap) 200 mg PO TID PRN PRN Reason: Cough Last Admin: 10/27/20 09:03 Dose: 200 mg Documented by: Budesonide/Formoterol Fumarate (Symbicort 160-4.5 Mcg Inhaler) 2 puff INHALATION RT-BID [facility] Last Admin: 10/27/20 07:35 Dose: Not Given Documented by: Bupropion HCl (Bupropion 75 Mg Tab) 150 mg PO DAILY [facility] Last Admin: 10/27/20 09:03 Dose: 150 mg Documented by: Hills Syrup (Hills Flavor 60 Ml Bottle) 5 ml PO Q6HR [facility] Last Admin: 10/27/20 05:27 Dose: 5 ml Documented by: Cholecalciferol (Cholecalciferol 400 Unit Tab) 400 unit PO DAILY [facility] Last Admin: 10/27/20 09:03 Dose: 400 unit Documented by: Cholestyramine Resin (Cholestyramine (With Sugar) 4 Gm Packet) 4 gm PO BID@100 0,2100 [facility] Last Admin: 10/27/20 09:04 Dose: 4 gm Documented by: Enoxaparin Sodium (Enoxaparin 40 Mg/0.4 Ml Syringe) 40 mg SQ DAILY [facility] Last Admin: 10/27/20 09:04 Dose: 40 mg Documented by: Famotidine (Famotidine 20 Mg Tab) 40 mg PO DAILY [facility] Last Admin: 10/27/20 09:02 Dose: 40 mg Documented by: Folic Acid (Folic Acid 1 Mg Tab) 1 mg PO DAILY@1200 [facility] Last Admin: 10/26/20 12:39 Dose: 1 mg Documented by: Furosemide (Furosemide 40 Mg Tab) 40 mg PO DAILY [facility] Last Admin: 10/27/20 09:01 Dose: 40 mg Documented by: Hydrocortisone (Hydrocortisone 10 Mg Tab) 10 mg PO DAILY@1900 [facility] Last Admin: 10/26/20 19:25 Dose: 10 mg Documented by: Hydrocortisone (Hydrocortisone 20 Mg Tab) 20 mg PO DAILY [facility] Last Admin: 10/27/20 09:03 Dose: 20 mg Documented by: Sodium Chloride (Saline 0.9%) 1,000 mls @ 20 mls/hr IV .Q24H [facility] Last Admin: 10/26/20 19:07 Dose: Not Given Documented by: Insulin Aspart (Insulin Aspart (Novolog) 100 Unit/Ml Vial) 0 unit SQ ACHS [facility]; Protocol Last Admin: 10/27/20 07:34 Dose: Not Given Documented by: Insulin Detemir (Insulin Detemir (Levemir) 100 Unit/Ml Syr) 30 unit SQ [facility] Last Admin: 10/26/20 20:53 Dose: 30 unit Documented by: Magnesium Oxide (Magnesium Oxide 400 Mg Tab) 400 mg PO DAILY [facility] Last Admin: 10/27/20 09:01 Dose: 400 mg Documented by: Miscellaneous Information (Magnesium Replacement Protocol 1 Each Misc) 1 each MISCELLANE DAILY PRN; Protocol PRN Reason: Per Protocol Miscellaneous Information (Potassium Replacement Protocol 1 Each Misc) 1 each MISCELLANE DAILY PRN; Protocol PRN Reason: Per Protocol Miscellaneous Information (Magnesium Replacement Protocol 1 Each Misc) 1 each MISCELLANE DAILY PRN; Protocol PRN Reason: Per Protocol Multivitamins (Multivitamins, Thera 1 Each Tab) 1 each PO DAILY@1200 [facility] Last Admin: 10/27/20 09:02 Dose: 1 each Documented by: Naloxone HCl (Naloxone 0.4 Mg/Ml 1 Ml Vial) 0.2 mg IV Q2M PRN PRN Reason: Opioid Reversal Nystatin (Nystatin 100,000 Unit/Ml Susp 500,000 Unit/5 Ml Cup) 500,000 unit PO QID [facility] Last Admin: 10/27/20 09:04 Dose: 500,000 unit Documented by: Potassium Chloride (Potassium Chloride Er 10 Meq Tab.Er.Prt) 10 meq PO DAILY [facility] Last Admin: 10/27/20 09:03 Dose: 10 meq Documented by: Thiamine HCl (Thiamine 100 Mg Tab) 100 mg PO DAILY@1200 [facility] Last Admin: 10/27/20 09:01 Dose: 100 mg Documented by: Trazodone HCl (Trazodone Hcl 50 Mg Tab) 50 mg PO [facility] Last Admin: 10/26/20 20:15 Dose: 50 mg Documented by: Vancomycin HCl (Vancomycin Oral Solution 250 Mg/5 Ml Bottle) 250 mg PO Q6HR [facility] Last Admin: 10/27/20 05:27 Dose: 250 mg Documented by: Zinc Sulfate (Zinc Sulfate 220 Mg Cap) 220 mg PO DAILY [facility] Last Admin: 10/27/20 09:02 Dose: 220 mg Documented by: Objective - Vital Signs Vital signs: Vital Signs Temp 98.1 F 10/27/20 05:00 Pulse 87 10/27/20 05:00 Resp 20 10/27/20 05:00 BP 109/57 10/27/20 05:00 Pulse Ox 94 L 10/27/20 07:37 Intake & Output 10/26/20 10/27/20 10/27/20 18:59 06:59 18:59 Intake Total 1200 1700 Balance 1200 1700 Intake: Oral 1200 1700 Other: Voiding Method Toilet Toilet Urinal Urinal # Voids 4 2 - Exam Gen: This is a 59-year-old male awake, alert and oriented 3, well-developed, well-nourished, obese sitting up in the chair. Temp is 98.1F, pulse is 87, respirations are 20, blood pressure is 109/57, oxygen saturation is 93% on 2 L via nasal cannula. HEENT: Head is atraumatic, normocephalic. Pupils equal, round. Sclerae is anicteric. NECK: Supple. No JVD. No lymphadenopathy. No thyromegaly. LUNGS: Diminished breath sounds bilaterally with no wheezing or rhonchi noted. No intercostal retractions. HEART: S1 , S2 are muffled ABDOMEN: Soft. Obese. Bowel sounds are present. No masses. No tenderness. EXTREMITIES: No pedal edema. No calf tenderness. Bilateral lower extremity edema noted with some left lower leg and knee pain on palpation NEUROLOGICAL: Patient is awake, alert and oriented x3. Cranial nerves 2 through 12 are grossly intact. Diffusely weak - Labs CBC & Chem 7: 10/20/20 07:43 10/24/20 06:12 Labs: Abnormal Lab Results - Last 24 Hours (Table) 10/26/20 10/26/20 10/26/20 Range/Units 11:32 18:06 20:52 POC Glucose (mg/dL) 145 H 139 H 168 H (75-99) mg/dL Magnesium (1.6-2.3) mg/dL 10/27/20 10/27/20 Range/Units 07:20 09:03 POC Glucose (mg/dL) 113 H (75-99) mg/dL Magnesium 1.5 L (1.6-2.3) mg/dL Assessment and Plan Assessment: Bilateral pneumonia with possible hospital-acquired pneumonia with acute hypoxic respiratory failure with possible sepsis, present on admission Diarrhea and was positive for Clostridium difficile Recent Covid 19 pneumonia with acute hypoxic respiratory failure. Treated with multiple modalities including convalescent plasma as well as Remdesivir mediastinal emphysema, present on admission Hypomagnesemia Covid 19 presently positive Elevated lactic acid, possibly secondary to sepsis, present on admission Elevated bilirubin, ALT AST, possibility of hepatitis associated with Covid 19 Elevated LDH Troponin 0.046, possibly associated with myocardial involvement secondary to Covid 19 Hypoalbuminemia with mild protein calorie malnutrition Elevated pro calcitonin Hyponatremia Thrombocytopenia increased white blood count History of asthma, intermittent history of GERD Hyperlipidemia history of pneumonia History of prostate disorder, cancer history of asbestos exposure History of appendectomy History of posttraumatic stress disorder Body mass index of 43.4 obesity Full code Recommendations and discussion: Recommend continue current medications, management, and symptomatic treatment. Continue with oral vancomycin for approximately 4 more days to complete the course. Multiple medical consultations following. Patient is working with PT/OT with the possibility of ECF as patient continues to be quite weak and unsteady with gait. Patient fatigues easily and becomes dyspneic with exertion. Magnesium was 1.5 and being replaced. Will continue to monitor closely. Discussed with the patient about increasing activity as tolerated. Further recommendations to follow. Awaiting for insurance authorization for [facility] the [address]. Discussed with the patient about the possibility of home with home care if authorization is not obtained through insurance. Prognosis is guarded. Possible discharge in 24 hours. <Sheet,Jose E - Last Filed: 10/28/20 00:17> Objective - Vital Signs Vital signs: Vital Signs Temp 97.8 F 10/27/20 11:00 Pulse 92 10/27/20 11:00 Resp 19 10/27/20 11:00 BP 136/78 10/27/20 11:00 Pulse Ox 93 L 10/27/20 11:00 Intake & Output 10/27/20 10/27/20 10/28/20 06:59 18:59 06:59 Intake Total 1700 Balance 1700 Intake: Oral 1700 Other: Voiding Method Toilet Toilet Urinal Urinal # Voids 2 - Labs CBC & Chem 7: 10/20/20 07:43 10/24/20 06:12 Labs: Abnormal Lab Results - Last 24 Hours (Table) 10/27/20 10/27/20 10/27/20 Range/Units 07:20 09:03 12:33 POC Glucose (mg/dL) 113 H 130 H (75-99) mg/dL Magnesium 1.5 L (1.6-2.3) mg/dL Assessment and Plan Assessment: Please disregard this note and refer to the discharge summary from today Dr. paz
[2020-10-27 12:42] LABS: Glucose,Whole Blood 130 mg/dL (75-99)
[2020-10-27 12:46] VITALS: BP 136/78; PULSE 92; RESP 19; TEMP 97.8
[2020-10-27] MEDS: FOLIC ACID 1 MG TAB PO SCH (12:51)
--- NOTE | 2020-10-27 13:56 | P.DS ---
Providers Date of admission: 10/14/20 13:46 Expected date of discharge: 10/27/20 Attending physician: Alden Benoit Consults: 10/14/20 12:37 Consult Physician Routine Consulting Provider: Hayden Dewitt Consult Reason/Comments: Covid patient elevated troponin Do you want consulting provider notified?: Yes, Notify in am 10/14/20 14:33 Consult Physician Routine Consulting Provider: Marlon Ocampo Consult Reason/Comments: pneumomediastinum, covid 19 patient Do you want consulting provider notified?: Yes, Notify in am 10/14/20 18:54 Consult Physician Routine Consulting Provider: Toshia Rucker Consult Reason/Comments: covid recent Do you want consulting provider notified?: Yes Primary care physician: [facility] Hospital Course: Final diagnosis Bilateral pneumonia with possible hospital-acquired pneumonia with acute hypoxic respiratory failure with possible sepsis, present on admission Diarrhea and was positive for Clostridium difficile Recent Covid 19 pneumonia with acute hypoxic respiratory failure. Treated with multiple modalities including convalescent plasma as well as Remdesivir mediastinal emphysema, present on admission Hypomagnesemia Covid 19 presently positive Elevated lactic acid, possibly secondary to sepsis, present on admission Elevated bilirubin, ALT AST, possibility of hepatitis associated with Covid 19 Elevated LDH Troponin 0.046, possibly associated with myocardial involvement secondary to Covid 19 Hypoalbuminemia with mild protein calorie malnutrition Elevated pro calcitonin Hyponatremia Thrombocytopenia increased white blood count History of asthma, intermittent history of GERD Hyperlipidemia history of pneumonia History of prostate disorder, cancer history of asbestos exposure History of appendectomy History of posttraumatic stress disorder Body mass index of 43.4 obesity Full code Discharge disposition Patient is being discharged in a stable condition with guarded prognosis to [facility] for continued PT/OT therapy. Patient will follow-up with [facility] in the outpatient setting upon discharge. Patient is to continue with oral vancomycin 250 mg 4 times daily for the next 7 days to complete the course. Total time taken is greater than 35 minutes. Hospital course This is a 59-year-old male who was recently admitted with bilateral pneumonia as well as possible acute pneumonia and also recently underwent extended hospitalization with Covid 19 pneumonia and was being closely monitored. Apparently patient was attempting to get into his house and fell on his left knee due to weakness and was brought back to the hospital and admitted. Patient continued to be on 4-5 L of oxygen and continued to be dyspneic and was placed on IV antibiotic therapy with multiple medical consultations including pulmonary and infectious disease following. Patient showed some improvement on IV antibiotic therapy which was ultimately discontinued and patient started experiencing multiple episodes of loose stools and diarrhea which was positive for C. diff colitis. Patient is maintained on vancomycin 250 mg 4 times daily and will continue for the next 7 days to complete the course. Patient continued to be quite weak and severely dyspneic with exertion and dropping oxygen saturations into the low 80s while trying to stand. Patient is currently maintained on 2 L via nasal cannula. Patient was working with physical therapy and has obtained authorization for [facility] for continued PT/OT therapy for strengthening mobility. Recommend continue current medications and continue to monitor blood sugars before meals at bedtime and treat accordingly with sliding scale along with long-acting insulin. His magnesium is found to be slightly low at 1.5 and was placed on magnesium supplements and recommend repeat labs in 2-3 days to monitor closely. Currently no reports of chest pain, worsening shortness of breath, or palpitations. Patient is afebrile. No reports of nausea or vomiting and patient is tolerating diet. Patient will be going to [facility] today. Guarded prognosis On exam vital signs are stable. Temp is 97.8F, pulse is 92, respirations are 19, blood pressure is 136/78, oxygen saturation is 93% on 2 L via nasal cannula. Cardio S1, S2 are muffled. Respiratory system shows diminished breath sounds at the bases with no wheezing or rhonchi noted. Abdomen is soft and obese, and nontender. Nervous system shows diffuse weakness. Please refer to medication reconciliation sheet for a list of medications. Patient Condition at Discharge: Stable Plan - Discharge Summary Discharge Rx Participant: No New Discharge Prescriptions: New Aspirin 81 mg PO DAILY chew Hydrocortisone [Cortef] 10 mg PO DAILY@1900 tab Hydrocortisone [Cortef] 20 mg PO DAILY tab Folic Acid 1 mg PO DAILY@1200 tab Magnesium Oxide [Mag-Ox] 400 mg PO DAILY tab Multivitamins, Thera [Multivitamin (formulary)] 1 each PO DAILY@1200 tab INSULIN ASPART (NovoLOG) [NovoLOG (formulary)] 0 unit SQ ACHS vial Cholestyramine (with Sugar) [Questran Packet] 4 gm PO BID@1000,2100 packet Vancomycin Oral Solution 250 mg PO Q6HR 7 Days #140 ml Thiamine [Vitamin B-1] 100 mg PO DAILY@1200 tab ALPRAZolam [Xanax] 0.25 mg PO HS PRN #5 tab PRN Reason: Anxiety Acetaminophen [Tylenol Extra Strength] 500 mg PO Q6H #30 tablet Continue buPROPion [Wellbutrin] 150 mg PO DAILY Potassium Chloride ER [K-Dur 10] 10 meq PO DAILY Atorvastatin [Lipitor] 80 mg PO DAILY Insulin Detemir (Levemir) [Levemir] 30 unit SQ HS 30 Days #4 syr amLODIPine [Norvasc] 5 mg PO DAILY 30 Days #30 tab Zinc Sulfate [Orazinc] 220 mg PO DAILY 30 Days #30 cap Famotidine [Pepcid] 40 mg PO DAILY 30 Days #30 tab Budesonide-Formot 160-4.5 Mcg [Symbicort 160-4.5 Mcg Inhaler] 2 puff INHALATION RT-BID 30 Days #1 puff Benzonatate [Tessalon Perles] 200 mg PO TID PRN #15 cap PRN Reason: Cough Albuterol Inhaler [Ventolin Hfa Inhaler] 2 puff INHALATION RT-QID puff Ascorbic Acid [Vitamin C] 1,000 mg PO DAILY 30 Days #60 tab Cholecalciferol [Vitamin D3 (10 Mcg = 400 Iu)] 400 unit PO DAILY 30 Days #30 tab Furosemide [Lasix] 40 mg PO DAILY 30 Days #60 tab traZODone HCL 50 mg PO HS Discontinued Acetaminophen Tab [Tylenol] 650 mg PO Q4HR PRN tab PRN Reason: Fever And/ Or Pain predniSONE See Taper PO DIRECTED Discharge Medication List Atorvastatin [Lipitor] 80 mg PO DAILY 09/15/20 [History] Potassium Chloride ER [K-Dur 10] 10 meq PO DAILY 09/15/20 [History] buPROPion [Wellbutrin] 150 mg PO DAILY 09/15/20 [History] Albuterol Inhaler [Ventolin Hfa Inhaler] 2 puff INHALATION RT-QID puff 10/13/20 [Rx] Ascorbic Acid [Vitamin C] 1,000 mg PO DAILY 30 Days #60 tab 10/13/20 [Rx] Benzonatate [Tessalon Perles] 200 mg PO TID PRN #15 cap 10/13/20 [Rx] Budesonide-Formot 160-4.5 Mcg [Symbicort 160-4.5 Mcg Inhaler] 2 puff INHALATION RT-BID 30 Days #1 puff 10/13/20 [Rx] Cholecalciferol [Vitamin D3 (10 Mcg = 400 Iu)] 400 unit PO DAILY 30 Days #30 tab 10/13/20 [Rx] Famotidine [Pepcid] 40 mg PO DAILY 30 Days #30 tab 10/13/20 [Rx] Furosemide [Lasix] 40 mg PO DAILY 30 Days #60 tab 10/13/20 [Rx] Insulin Detemir (Levemir) [Levemir] 30 unit SQ HS 30 Days #4 syr 10/13/20 [Rx] Zinc Sulfate [Orazinc] 220 mg PO DAILY 30 Days #30 cap 10/13/20 [Rx] amLODIPine [Norvasc] 5 mg PO DAILY 30 Days #30 tab 10/13/20 [Rx] traZODone HCL 50 mg PO HS 10/16/20 [History] ALPRAZolam [Xanax] 0.25 mg PO HS PRN #5 tab 10/27/20 [Rx] Acetaminophen [Tylenol Extra Strength] 500 mg PO Q6H #30 tablet 10/27/20 [Rx] Aspirin 81 mg PO DAILY chew 10/27/20 [Rx] Cholestyramine (with Sugar) [Questran Packet] 4 gm PO BID@1000,2100 packet 10/27/20 [Rx] Folic Acid 1 mg PO DAILY@1200 tab 10/27/20 [Rx] Hydrocortisone [Cortef] 10 mg PO DAILY@1900 tab 10/27/20 [Rx] Hydrocortisone [Cortef] 20 mg PO DAILY tab 10/27/20 [Rx] INSULIN ASPART (NovoLOG) [NovoLOG (formulary)] 0 unit SQ ACHS vial 10/27/20 [Rx] Magnesium Oxide [Mag-Ox] 400 mg PO DAILY tab 10/27/20 [Rx] Multivitamins, Thera [Multivitamin (formulary)] 1 each PO DAILY@1200 tab 10/27/20 [Rx] Thiamine [Vitamin B-1] 100 mg PO DAILY@1200 tab 10/27/20 [Rx] Vancomycin Oral Solution 250 mg PO Q6HR 7 Days #140 ml 10/27/20 [Rx] Follow up Appointment(s)/Referral(s): [facility] [Primary Care Provider] - 1-2 days Ambulatory/Diagnostic Orders: Basic Metabolic Panel [LAB.AMB] Time Frame: 2 Days, Location: None Selected Magnesium [LAB.AMB] Time Frame: 2 Days, Location: None Selected Activity/Diet/Wound Care/Special Instructions: Patient is going to [facility] on the bhardwaj Activity as tolerated Continue current consistent carb heart healthy diet Continue to monitor blood sugars before meals at bedtime and treat accordingly with sliding scale Continue with antibiotics for the next 7 days and then may discontinue Repeat BMP and magnesium levels in 2-3 days Discharge Disposition: TRANSFER TO SNF/ECF
--- NOTE | 2020-10-27 14:51 | P.PN ---
Subjective Progress Note Date: 10/27/20 HISTORY OF PRESENT ILLNESS This is a 59-year-old male was been admitted to the hospital and carla morales for C. difficile colitis. Patient has been on treatment with oral vancomycin with improvement of his diarrhea. He had 1 formed bowel movements this morning. He is taking yogurt with his meals. He denies shortness of breath. He has a cough during the evaluation although he denies having a cough. Oxygen is down to 2 L nasal cannula. Patient has been afebrile, heart rate 92, blood pressure 136/78, pulse ox 93% on 2 L nasal cannula. PHYSICAL EXAMINATION Gen: This is a morbidly obese 59-year-old male. HEENT: Head is atraumatic, normocephalic. Pupils equal, round. Sclerae is anicteric. NECK: Supple. No JVD. No lymphadenopathy. LUNGS: Clear to auscultation. No wheezes or rhonchi. No intercostal retractions. HEART: Regular rate and rhythm. No murmur. ABDOMEN: Soft. Bowel sounds are present. No masses. No tenderness. EXTREMITIES: No pedal edema. No calf tenderness. NEUROLOGICAL: Patient is awake, alert and oriented x3. ASSESSMENT C. difficile colitis. Recent treatment for COVID-19 pneumonia in September PLAN Continue oral vancomycin Continue yogurt and probiotics The above dictated assessment and findings were discussed with Dr. Rucker. The impression and plan of care have been directed as dictated. Linnea Shipman nurse practitioner acting as scribe for Dr. Rucker. Objective - Vital Signs Vital signs: Vital Signs Temp 97.8 F 10/27/20 11:00 Pulse 92 10/27/20 11:00 Resp 19 10/27/20 11:00 BP 136/78 10/27/20 11:00 Pulse Ox 93 L 10/27/20 11:00 Intake & Output 10/26/20 10/27/20 10/27/20 18:59 06:59 18:59 Intake Total 1200 1700 Balance 1200 1700 Intake: Oral 1200 1700 Other: Voiding Method Toilet Toilet Toilet Urinal Urinal Urinal # Voids 4 2 - Labs CBC & Chem 7: 10/20/20 07:43 10/24/20 06:12 Labs: Abnormal Lab Results - Last 24 Hours (Table) 10/26/20 10/26/2010/27/21 Range/Units 18:06 20:52 07:20 POC Glucose (mg/dL) 139 H 168 H 113 H (75-99) mg/dL Magnesium (1.6-2.3) mg/dL 10/27/20 10/27/20 Range/Units 09:03 12:33 POC Glucose (mg/dL) 130 H (75-99) mg/dL Magnesium 1.5 L (1.6-2.3) mg/dL
== END 2020-10-27 16:04 | DRG 871 ==
LOC: EC 09:46 → 3SCARD 13:46 → 6NMEDSUR 10-20 23:35
PROVIDERS: ADMIT Hospitalist; ATTEND Hospitalist
PROC: 5A0945A Assistance with Respiratory Ventilation, 24-96 Consecutive Hours, High Flow/Velocity Cannula (ICD-10-PCS; principal; 2020-10-14)
DX: A41.89 Other specified sepsis (principal); U07.1 COVID-19; J96.01 Acute respiratory failure with hypoxia; J12.82 Pneumonia due to coronavirus disease 2019; E87.2 Acidosis; E44.1 Mild protein-calorie malnutrition; E87.1 Hypo-osmolality and hyponatremia; A04.72 Enterocolitis due to Clostridium difficile, not specified as recurrent; Z68.41 Body mass index [BMI] 40.0-44.9, adult; D69.6 Thrombocytopenia, unspecified; J98.2 Interstitial emphysema; K75.9 Inflammatory liver disease, unspecified; E66.01 Morbid (severe) obesity due to excess calories; Z79.4 Long term (current) use of insulin; I11.9 Hypertensive heart disease without heart failure; E83.42 Hypomagnesemia; K21.9 Gastro-esophageal reflux disease without esophagitis; E78.5 Hyperlipidemia, unspecified; J45.20 Mild intermittent asthma, uncomplicated; I87.8 Other specified disorders of veins; F43.10 Post-traumatic stress disorder, unspecified; M25.561 Pain in right knee; R26.81 Unsteadiness on feet; Z99.81 Dependence on supplemental oxygen; Z79.51 Long term (current) use of inhaled steroids; Z79.899 Other long term (current) drug therapy; Z77.090 Contact with and (suspected) exposure to asbestos; Z71.3 Dietary counseling and surveillance; Z87.01 Personal history of pneumonia (recurrent); Z87.820 Personal history of traumatic brain injury; Z85.46 Personal history of malignant neoplasm of prostate; Z90.49 Acquired absence of other specified parts of digestive tract; Z87.19 Personal history of other diseases of the digestive system; Z87.39 Personal history of other diseases of the musculoskeletal system and connective tissue; Z90.79 Acquired absence of other genital organ(s); Z98.890 Other specified postprocedural states; Z91.048 Other nonmedicinal substance allergy status; Z82.49 Family history of ischemic heart disease and other diseases of the circulatory system; Z81.8 Family history of other mental and behavioral disorders; W19.XXXA Unspecified fall, initial encounter; Y92.009 Unspecified place in unspecified non-institutional (private) residence as the place of occurrence of the external cause
CPT/HCPCS: 36415; 71045; 71275; 80048; 80053; 80202; 81003; 82533; 82728; 83036; 83605; 83615; 83735; 83880; 84145; 84484; 85025; 85379; 85610; 85730; 86140; 87040; 87070; 87205; 87324; 87449; 87635; 93005; 93306; 93970; 94640; 94760; 96361; 96374; 96375; 99285

== ENCOUNTER 2022-08-08 17:55 | Emergency (ER) | payer OTHER ==
[2022-08-08 18:11] VITALS: TEMP 97.8
--- NOTE | 2022-08-08 18:59 | XR ---
EXAMINATION TYPE: XR Hip Complete RT DATE OF EXAM: 08/08/2022 COMPARISON: NONE HISTORY: Pain TECHNIQUE: 2 views FINDINGS: There is slight flattening of the articular surface of the femoral head. Exam limited sligh tly by patient's size. Acetabulum is intact. Femoral neck is intact. IMPRESSION: There is slight flattening of the superior femoral head articular surface that could rela te to avascular necrosis. This appears new compared to old CT scan of 10/27/2017.
--- NOTE | 2022-08-08 19:09 | ED ---
Extremity Problem HPI - General Chief complaint: Extremity Problem,Nontraumatic Stated complaint: rt leg pain Source: patient, RN notes reviewed Mode of arrival: ambulatory Limitations: no limitations - History of Present Illness Initial comments: This is a pleasant 61-year-old male with past medical history of asthma, prostate cancer, hyperlipidemia, acid reflux, pneumonia, and COVID-19 with long- term hospitalization. He presents today complaining of right hip pain which is not present for about 2 months. Patient states it was rather mild really started doing yard work yesterday. Patient doesn't recall any specific injury but states after he got finished with the yardwork he came in and rested for a while he got up he noted that the pain was much worse than it had been. Pain mostly in the right hip area. Does radiate distally minimally. Exacerbated by movement, alleviated by rest. Patient denies any skin rash. No erythema. No problems in other joints. Patient does state that he was on corticosteroids for prolonged time when he was hospitalized for COVID-19. No headache, no fever or chills, no changes in vision or hearing, no sore throat or difficulty with speech, no neck pain, no chest pain or shortness of breath, no abdominal pain, no nausea or vomiting, no changes in urination or bowel movements, no numbness or tingling, no testicular pain., no skin rashes or lesions. Past medical, surgical, social, and family history reviewed. - Related Data Home Medications Medication Instructions Recorded Confirmed Atorvastatin [Lipitor] 80 mg PO DAILY 09/15/20 10/14/20 Potassium Chloride ER [K-Dur 10] 10 meq PO DAILY 09/15/20 10/14/20 buPROPion [Wellbutrin] 150 mg PO DAILY 09/15/20 10/14/20 traZODone HCL 50 mg PO HS 10/16/20 10/16/20 Previous Rx's Medication Instructions Recorded Albuterol Inhaler [Ventolin Hfa 2 puff INHALATION RT-QID puff 10/13/20 Inhaler] Ascorbic Acid [Vitamin C] 1,000 mg PO DAILY 30 Days #60 tab 10/13/20 Benzonatate [Tessalon Perles] 200 mg PO TID PRN #15 cap 10/13/20 Budesonide-Formot 160-4.5 Mcg 2 puff INHALATION RT-BID 30 Days 10/13/20 [Symbicort 160-4.5 Mcg Inhaler] #1 puff Cholecalciferol [Vitamin D3 (10 400 unit PO DAILY 30 Days #30 tab 10/13/20 Mcg = 400 Iu)] Famotidine [Pepcid] 40 mg PO DAILY 30 Days #30 tab 10/13/20 Furosemide [Lasix] 40 mg PO DAILY 30 Days #60 tab 10/13/20 Insulin Detemir (Levemir) [Levemir] 30 unit SQ HS 30 Days #4 syr 10/13/20 Zinc Sulfate [Orazinc] 220 mg PO DAILY 30 Days #30 cap 10/13/20 amLODIPine [Norvasc] 5 mg PO DAILY 30 Days #30 tab 10/13/20 ALPRAZolam [Xanax] 0.25 mg PO HS PRN #5 tab 10/27/20 Acetaminophen [Tylenol Extra 500 mg PO Q6H #30 tablet 10/27/20 Strength] Aspirin 81 mg PO DAILY chew 10/27/20 Cholestyramine (with Sugar) 4 gm PO BID@1000,2100 packet 10/27/20 [Questran Packet] Folic Acid 1 mg PO DAILY@1200 tab 10/27/20 Hydrocortisone [Cortef] 10 mg PO DAILY@1900 tab 10/27/20 Hydrocortisone [Cortef] 20 mg PO DAILY tab 10/27/20 INSULIN ASPART (NovoLOG) [NovoLOG 0 unit SQ ACHS vial 10/27/20 (formulary)] Magnesium Oxide [Mag-Ox] 400 mg PO DAILY tab 10/27/20 Multivitamins, Thera [Multivitamin 1 each PO DAILY@1200 tab 10/27/20 (formulary)] Thiamine [Vitamin B-1] 100 mg PO DAILY@1200 tab 10/27/20 Vancomycin Oral Solution 250 mg PO Q6HR 7 Days #140 ml 10/27/20 Allergies Allergy/AdvReac Type Severity Reaction Status Date / Time adhesive tape Allergy Rash/Hives Verified 08/08/22 18:11 Review of Systems ROS Statement: Those systems with pertinent positive or pertinent negative responses have been documented in the HPI. ROS Other: All systems not noted in ROS Statement are negative. Past Medical History Past Medical History: Asthma, Cancer, GERD/Reflux, Hyperlipidemia, Pneumonia, Prostate Disorder Additional Past Medical History / Comment(s): peripheral edema. 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 History of Any Multi-Drug Resistant Organisms: C-DIFF Date of last positivie culture/infection: 10/21/20 MDRO Source:: stool Past Surgical History: Appendectomy, Prostate Surgery Additional Past Surgical History / Comment(s): as youth fell on broken glass jar and cut tendons lt writs-had sx to repair.left wrist carpal tunnel release, , left shoulder rotator reconstruction and has a pin in place, cystectomy tailbone, open abdominal surgery to remove prsotate Past Anesthesia/Blood Transfusion Reactions: No Reported Reaction Past Psychological History: PTSD Smoking Status: Never smoker Past Alcohol Use History: None Reported Past Drug Use History: None Reported - Past Family History Father Family Medical History: Congestive Heart Failure (CHF), Hypertension Mother Family Medical History: Cancer Additional Family Medical History / Comment(s): depression General Exam Limitations: no limitations General appearance: alert, in no apparent distress Head exam: Present: atraumatic, normocephalic, normal inspection Eye exam: Present: normal appearance, PERRL, EOMI. Absent: scleral icterus, conjunctival injection, periorbital swelling ENT exam: Present: normal exam, mucous membranes moist Neck exam: Present: normal inspection. Absent: tenderness, meningismus, lymphadenopathy Respiratory exam: Present: normal lung sounds bilaterally. Absent: respiratory distress, wheezes, rales, rhonchi, stridor Cardiovascular Exam: Present: regular rate, normal rhythm, normal heart sounds. Absent: systolic murmur, diastolic murmur, rubs, gallop, clicks GI/Abdominal exam: Present: soft. Absent: distended, tenderness, guarding, rebound, rigid Extremities exam: Present: normal inspection, full ROM, tenderness (Anterolateral aspect of right hip), normal capillary refill. Absent: pedal edema, joint swelling, calf tenderness Right Hip exam: Present: full ROM, tenderness. Absent: swelling, abrasion, ecchymosis, deformity, crepitus, dislocation, erythema, external rotation, internal rotation, shortening, pelvic stability Upper Leg exam: Present: normal inspection. Absent: tenderness, swelling Knee exam: Present: normal inspection, full ROM. Absent: tenderness, swelling, abrasion Lower Leg exam: Present: normal inspection. Absent: tenderness, swelling, abrasion Ankle exam: Present: normal inspection, full ROM. Absent: tenderness Neurovascular tendon exam: Present: no vascular compromise. Absent: pulse deficit, abnormal cap refill, motor deficit, sensory deficit Back exam: Present: normal inspection Neurological exam: Present: alert, oriented X3, CN II-XII intact Psychiatric exam: Present: normal affect, normal mood Skin exam: Present: warm, dry, intact, normal color. Absent: rash Course Vital Signs 08/08/22 18:09 Temperature 97.8 F Pulse Rate 84 Respiratory 18 Rate Blood Pressure 100/58 O2 Sat by Pulse 98 Oximetry - Reevaluation(s) Reevaluation #1: 08/08/22 20:31 Medical record is reviewed Symptoms are improved here in the emergency department Patient is informed of results and questions answered Patient in no distress Medical Decision Making - Medical Decision Making Patient computed tomography scan shows evidence of avascular necrosis. We'll have the patient follow-up with orthopedics. We'll put the patient on light duty/sitting work only until follow-up with the orthopedic physician. Patient was told to return to the ER for any signs or symptoms worsen. Told to return immediately if any other problems arise. All questions answered. Treatment plan discussed. Patient in agreement Every effort has been made to ensure accuracy of this dictation. However, due to the limitations of electronic medical records and dictation devices, errors in charting still occur. Supervising Dr. Figueroa - Radiology Data Radiology results: report reviewed, image reviewed Disposition Clinical Impression: Avascular necrosis of bone of right hip Disposition: HOME SELF-CARE Condition: Stable Instructions (If sedation given, give patient instructions): Hip Pain (ED), Arthralgia (ED) Additional Instructions: Sitting work only until reevaluation by orthopedics. Is patient prescribed a controlled substance at d/c from ED?: No Referrals: Ronald Contreras MD [Medical Doctor] - 1-2 days Time of Disposition: 20:33
--- NOTE | 2022-08-08 19:42 | XR ---
EXAMINATION TYPE: XR pelvis AP view DATE OF EXAM: 08/08/2022 COMPARISON: NONE HISTORY: Hip pain TECHNIQUE: 2 views FINDINGS: The pelvic ring is intact. There are surgical clips in the pelvis. There is slight flatteni ng of the articular surface of the right femoral head. There is mild hip joint space narrowing. Sacro iliac joints are intact. IMPRESSION: Mild deformity of the femoral head that could be chronic avascular necrosis. This could b e confirmed with MR scan. No pelvic fracture.
--- NOTE | 2022-08-08 20:01 | CT ---
EXAMINATION TYPE: CT hip RT wo con DATE OF EXAM: 08/08/2022 COMPARISON: CT scan 10/27/2017 HISTORY: Rt hip pain. no injury CT DLP: 1536.6 mGycm Automated exposure control for dose reduction was used. Images obtained from the mid ileum to the mid shaft of the femur without contrast. The acetabulum is intact. Right hemipelvis appears intact. There is some flattening of the superior a rticular surface of the right femoral head. There is mild osteosclerosis in the right femoral head. T he intertrochanteric femur is intact. No evidence of a soft tissue mass. No free fluid in the pelvis. IMPRESSION: There is evidence of chronic avascular necrosis of the right femoral head with partial collapse of th e articular surface. This appears new compared to old CT scan.
[2022-08-08] MEDS ORDERED: HYDROcodone/APAP 5-325MG 1 EACH TAB PO STA (20:41)
[2022-08-08 21:44] VITALS: BP 156/72; PULSE 78; RESP 16
== END 2022-08-08 20:45 | disposition home or self-care (01) ==
LOC: EC 17:55
DX: M79.604 Pain in right leg (principal); M87.9 Osteonecrosis, unspecified; J45.909 Unspecified asthma, uncomplicated; K21.9 Gastro-esophageal reflux disease without esophagitis; E78.5 Hyperlipidemia, unspecified; Z79.4 Long term (current) use of insulin; Z79.82 Long term (current) use of aspirin; Z79.51 Long term (current) use of inhaled steroids; Z79.899 Other long term (current) drug therapy
CPT/HCPCS: 72170; 73502; 99284

== ENCOUNTER → 2022-09-23 | Outpatient (CLI) | payer BC | END | disposition home or self-care (01) | LOC: LABPAT 09:41 | PROVIDERS: ATTEND Orthopaedic Surgery | DX: Z01.812 Encounter for preprocedural laboratory examination (principal) ==

== ENCOUNTER → 2022-10-04 | Outpatient (CLI) | payer BC | END | disposition home or self-care (01) | LOC: LABWHC1 09:16 | PROVIDERS: ATTEND Orthopaedic Surgery | DX: Z53.9 Procedure and treatment not carried out, unspecified reason (principal) | CPT/HCPCS: 36415; 83036 ==

== ENCOUNTER 2022-10-05 13:26 | Observation (INO) | payer BC, OTHER ==
[2022-09-23 11:21] LABS: INR 0.9 (<1.2); Prothrombin Time 9.9 sec (9.0-12.0)
[2022-09-27 12:28] LABS: African American GFR (CKD) 101.1 (60.0-200.0); Albumin 3.9 g/dL (3.8-4.9); Albumin/Globulin Ratio 1.61 (1.60-3.17); Anion Gap 11.4 mmol/L (10.00-18.00); BUN/Creat Ratio 20.21 Ratio (12.00-20.00); Basophils # (A) 0.11 X 10*3/uL (0.00-0.10); Basophils % (A) 0.8 %; Blood Urea Nitrogen 19.1 mg/dL (9.0-27.0); Calcium 9.6 mg/dL (8.7-10.3); Carbon Dioxide 27.2 mmol/L (20.0-27.5); Eosinophils # (A) 0.36 X 10*3/uL (0.04-0.35); Eosinophils % (A) 2.7 %; Globulin 2.4 g/dL (1.6-3.3); HCT 45.9 % (39.6-50.0); HGB 14.5 g/dL (13.0-17.0); Immature Grans, Automated 0.9 %; Lymphocytes # (A) 2.19 X 10*3/uL (0.90-5.00); Lymphocytes % (A) 16.4 %; MCH 29.3 pg (27.0-32.0); MCHC 31.6 g/dL (32.0-37.0); MCV 92.7 fL (80.0-97.0); Monocytes # (A) 1.55 X 10*3/uL (0.20-1.00); Monocytes % (A) 11.6 %; NRBC Per 100 WBC 0 /100 WBCS (0.0-0.0); Neutrophils # (A) 8.99 X 10*3/uL (1.80-7.70); Neutrophils % (A) 67.6 %; Non-African American GFR(CKD) 87.2 (60.0-200.0); Platelet Count 343 X 10*3/uL (140-440); Potassium 4.3 mmol/L (3.5-5.5); RBC 4.95 X 10*6/uL (4.40-5.60); RBC Morphology NORMAL; RDW 13.7 % (11.5-14.5); Total Bilirubin 0.6 mg/dL (0.30-1.20); Total Protein 6.4 g/dL (6.2-8.2); WBC 13.32 X 10*3/uL (4.50-10.00)
[2022-09-28 15:06] VITALS: BMI 47.9
[~2022-10-05 13:26] MED LIST: ACETAMINOPHEN TAB 500 MG TAB PO PRN; DEXAMETHASONE SOD PHOSPHATE 10 MG/ML 1 ML VIAL IV PRN; DOCUSATE 100 MG CAP PO PRN; FAMOTIDINE 20 MG/2 ML VIAL IVP PRN; HYDROmorphone 0.5 MG/0.5 ML SYRINGE IVP PRN; LACTATED RINGERS 1,000 ML IV SCH; LIDOCAINE 1% (10MG/ML) FOR IV START INTRADERMA PRN; ONDANSETRON 4 MG/2 ML VIAL IVP PRN; ROPIVACAINE/EPI/CLONIDINE/KET 50 ML SYRINGE MISCELLANE PRN; TRANEXAMIC ACID IN NACL,ISO-OS 1,000 MG in SALINE 1 100ML.BAG IVPB PRN; ceFAZolin 3 GM in SODIUM CHLORIDE 0.9% 100 ML IVPB PRN; oxyCODONE ER 10 MG TAB.ER.12H PO PRN
[2022-10-05 14:07] LABS: Glucose,Whole Blood 95 mg/dL (70-110)
[2022-10-05] MEDS: KETOROLAC 15 MG/ML 1 ML VIAL IVP PRN ×2 (14:13→14:14)
[2022-10-05] MEDS ORDERED: TRANEXAMIC ACID IN NACL,ISO-OS 1,000 MG/100 ML BAG ONE (15:24)
[2022-10-05] MEDS ORDERED: KETAMINE 10 MG/ML 20 ML VIAL ONE (15:24)
[2022-10-05] MEDS ORDERED: GLYCOPYRROLATE 0.2 MG/ML 2 ML VIAL ONE (15:24)
[2022-10-05] MEDS ORDERED: NEOSTIGMINE 1 MG/ML 10 ML VIAL ONE (15:24)
[2022-10-05] MEDS ORDERED: HYDROmorphone (PF) 1 MG/ML ONE (15:24)
[2022-10-05] MEDS ORDERED: fentaNYL (PF) 50 MCG/ML 2 ML AMP ONE (15:24)
[2022-10-05] MEDS ORDERED: MIDAZOLAM 2 MG/2 ML VIAL ONE (15:24)
[2022-10-05] MEDS ORDERED: SUCCINYLCHOLINE CHLORIDE 200 MG/10 ML VIAL IV ONE (15:24)
[2022-10-05] MEDS ORDERED: ROCURONIUM 10 MG/ML (5 ML VIAL) IV ONE (15:24)
[2022-10-05] MEDS ORDERED: LABETALOL 5 MG/ML VIAL MDV ONE (15:24)
[2022-10-05] MEDS ORDERED: LIDOCAINE 2% INJ 20 MG/ML (2 ML VIAL) ONE (15:24)
[2022-10-05] MEDS ORDERED: PROPOFOL 10 MG/ML 20 ML VIAL IV ONE (15:24)
--- NOTE | 2022-10-05 18:19 | FL ---
Intraoperative/procedural fluoroscopic services were provided. Total fluoroscopy time is 58 seconds w ith a total of 9 submitted images to PACS. Please see the operative/procedural note for further detai ls.
[2022-10-05] MEDS ORDERED: HYDROmorphone 1 MG/ML 1 ML SYRINGE IVP PRN (18:26)
[2022-10-05] MEDS ORDERED: NALOXONE 0.4 MG/ML 1 ML VIAL IV PRN (18:26)
[2022-10-05] MEDS ORDERED: HYDROcodone/APAP 5-325MG 1 EACH TAB PO PRN (18:26)
[2022-10-05] MEDS ORDERED: HYDROmorphone 0.5 MG/0.5 ML SYRINGE IVP PRN ×2 (18:26)
--- NOTE | 2022-10-05 18:38 | P.OP ---
Date of Procedure: 10/05/22 Preoperative Diagnosis: 1. Right hip avascular necrosis with collapse 2. BMI 48.2 3. Type 2 diabetes Postoperative Diagnosis: Same Implants: 1. Arianna Trident II Acetabular Cup, Size #54 2. [place] Insignia Size #6 Femoral Stem, Standard Offset 3. Biolox delta femoral head, 36 mm, +0 neck Anesthesia: GETA, regional Surgeon: Ronald Contreras Motorcycle Sales Associate #1: Dionne Obrien Estimated Blood Loss (ml): 150 IV fluids (ml): 1,000 Pathology: other (Femoral head sent to pathology for evaluation for possible avascular necrosis) Condition: stable Disposition: PACU Indications for Procedure: The patient had severe and incapacitating hip pain limiting his ability to walk. His x-rays showed severe arthritis with collapse of the femoral head. We discussed that he is at a high risk of having a complication given his weight a nd diabetes. We both agree, however, that due to the femoral head collapse proceeding with a total hip replacement is in his best interest. The patient understands and acknowledges his increased risk of having a complication due to his weight and history of diabetes. He voiced his understanding of this. I had a long discussion with the patient in the office on the potential risks and complications of an elective total hip replacement through a direct anterior approach. Risks discussed include, but are certainly not limited to, risks from anesthesia, superficial infection requiring local wound care or antibiotics, deep michele-prosthetic joint infection and the treatment required to eradicate infection, intraoperative fracture, postoperative periprosthetic fracture, damage to local blood vessels or nerves particularly the lateral femoral cutaneous nerve, delayed wound healing requiring local wound care or possibly surgical debridement, hip dislocation, leg length discrepancy, soft tissue irritation around the total hip implant such as iliopsoas tendinitis or trochanteric bursitis, wear and osteolysis from the implants, squeaking or audible noises, groin pain, thigh pain, heterotopic ossification, stiffness, aseptic loosening of the implants, dissatisfaction with surgical outcome, need for revision surgery, DVT, PE, swelling of the operative extremity, acute coronary event, stroke, failure to thrive, and possibly loss of life or limb. The patient understands that while these are the most common complications after an elective hip replacement there are certainly other less common complications possible. They were given ample time to ask questions regarding the potential complications of a hip replacement. Following our discussion the patient provided their verbal and written consent to go forward with an elective total hip replacement. Operative Findings: There are findings consistent with avascular necrosis and subchondral collapse the femoral head. The cartilage had completely delaminated away from the underlying subchondral bone. Description of Procedure: The patient was identified in the preoperative holding area and the correct hip was marked with my initials. I reviewed the procedure and consent with the patient. All of their questions were answered. The patient was then brought back into the operating room by anesthesia. While on the [facility] anesthesia was administered by the anesthesia team. Preoperative antibiotics and tranexamic acid were also given. After the patient was under anesthesia I examined their ankles to determine their preoperative leg length discrepancy. The skin over the anterior aspect of the hip was shaved to remove hair over the site of planned incision. Both feet and ankles were padded with webril and boots for the Sedan were applied. The patient was then carefully transferred onto the Sedan table. A perineal post was immediately placed. The arms were placed on arm holders and were well-padded. Both boots were secured to the spars on the Sedan table. The patient was positioned so that the pelvis was centered over the post. Nonsterile drapes were applied. A timeout was performed identifying the correct patient, operative extremity, and procedure. At this point fluoroscopy was brought in to take preoperative images of the pelvis and operative hip. Using the standing AP pelvis from the office as a template, a comparable image was obtained with fluoroscopy. A metallic bar was used to create a bi-ischial line for use as a reference to leg length adjustments during the procedure. Global offset was also measured on both the operative and nonoperative leg. Fluoroscopy was then brought out and a pre-scrub using a chlorhexidine scrub brush was performed. The operative limb was then prepped and draped in the standard sterile fashion. An anterior longitudinal incision was made lateral and distal to the ASIS. The skin and subcutaneous tissues were incised sharply. The underlying tensor fascia was identified and incised in its midportion. The fascia was dissected free from the underlying muscle and the muscle belly was retracted. A blunt tipped cobra retractor was placed over the superior neck under the muscle fibers of the gluteus minimus. The deep enveloping fascia of the tensor was incised. The anterior leash of vessels were then identified and cauterized. The fascia between the rectus and the capsule was then incised and the pre-capsular fat was excised. A second Cobra was placed inferior to the neck. The interval between the rectus and iliocapsularis and the hip capsule was developed and a retractor was placed carefully over the anterior rim of the acetabulum. A T-shaped anterior capsulotomy was performed. The superior capsular leaflet was left in place in the inferior capsular flap was excised. The Cobra retractors were placed intracapsularly. We then made a femoral neck osteotomy according to preoperative and intraoperative templating and confirmed the level of the osteotomy using fluoroscopic imaging. The femoral head was removed, passed off to the back table, and sized. On inspection of the femoral head there are findings consistent with avascular necrosis with subchondral collapse. The superior capsular flap was excised. Retractors were placed circumferentially exposing the acetabulum. We then circumferentially debrided the acetabulum free of labrum and osteophytes. The pulvinar was removed to fully visualize the cotyloid fossa. We then sequentially reamed to achieve peripheral fit and excellent bleeding subchondral bone. The socket was thoroughly irrigated. The acetabular component was impacted into the appropriate position using fluoroscopy to guide version, inclination, and depth of insertion taking care to have a comparable image of the AP pelvis to the standing image taken in the office. An excellent press-fit was achieved and final position was confirmed using fluoroscopy. The press fit was augmented with bony cancellus dome screws. The liner was then impacted into the socket. Attention was then turned to the femur. The remnant dorsal lateral capsule was excised. The short external rotators were visible and protected. A bone hook was used to confirm appropriate translation of the trochanter away from the acetabulum. The leg was then extended and adducted and the bone hook was used to elevate the femur for broaching. A box osteotome and blunt tipped canal sound was then utilized to gain access to the femoral canal. We then sequentially broached the femur in appropriate anteversion until excellent torsional stability was achieved. The neck cut was brought flush to the trial broach with a calcar planar. A trial neck and head were then placed onto the broach and the hip was atraumatically reduced under direct visualization. External rotation to 90 was performed to assess stability. Fluoroscopy was brought in. An AP and lateral fluoroscopic image of the proximal femur was obtained to assess position and fill of the trial broach. An AP of the pelvis was then obtained and matched to the preoperative image taken. A bi-ischial bar was then placed and measurements were taken to assess changes in length and offset. The hip was then carefully dislocated, the proximal femur was exposed, and the trial implants were removed. The wound and proximal femur was thoroughly irrigated using sterile saline and pulsatile lavage. The final femoral implant was dispensed and gently tapped into place generating an excellent press-fit. The trunnion was cleansed and the final head was tapped into place to engage the Cash taper. The acetabulum was irrigated and visualized to be free of debris. The hip was carefully reduced. Stability was checked clinically with external rotation to 90 and there was no evidence of instability. Final fluoroscopic images were taken. The wound was then thoroughly irrigated and soaked with a dilute Betadine rinse for 3 minutes. 3 L of sterile saline was irrigated through the wound using pulsatile lavage. Local anesthetic cocktail was injected into the soft tissues around the surgical field. A deep drain was placed. The wound was then closed in layers. A sterile dressing was placed over the surgical incision and drain site. The drapes were taken down and the patient was carefully transferred off of the Sedan table. Following removal of the boots the leg lengths felt acceptable. The patient was then taken to recovery room having tolerated the procedure well. Dionne Obrien PA-C was required as a skilled visual merchandising assistant for patient positioning, surgical exposure, retraction, placement of implants, and closure of the surgical wound. PLAN: The patient can weight-bear as tolerated on the operative extremity. 2 doses of postoperative antibiotics. DVT prophylaxis with aspirin 81 mg twice a day based on preoperative risk stratification. Physical therapy for gait training. Discontinue drain postoperative day #1 if output is less than 100 mL per shift.
[2022-10-05] MEDS ORDERED: ALBUTEROL NEBULIZED 2.5 MG/3 ML INHALATION ONE (18:59)
[2022-10-05] MEDS: LACTATED RINGERS 1,000 ML IV SCH (19:09)
[2022-10-05] MEDS: ASPIRIN 81 MG PO SCH (20:43)
[2022-10-05] MEDS: HYDROcodone/APAP 5-325MG 1 EACH TAB PO PRN (20:52)
[2022-10-05] MEDS: ceFAZolin 3 GM in SODIUM CHLORIDE 0.9% 100 ML IVPB SCH (23:08)
[2022-10-06] MEDS: HYDROcodone/APAP 5-325MG 1 EACH TAB PO PRN ×2 (04:45→10:47)
[2022-10-06] MEDS: ceFAZolin 3 GM in SODIUM CHLORIDE 0.9% 100 ML IVPB SCH (06:33)
[2022-10-06] MEDS: LACTATED RINGERS 1,000 ML IV SCH (06:55)
--- NOTE | 2022-10-06 08:00 | P.PN ---
Subjective Progress Note Date: 10/06/22 Patient is doing well this morning. He has some thigh discomfort and minor groin pain is otherwise doing well. He denies chest pain or shortness of breath. Objective - Vital Signs Vital signs: Vital Signs Temp 98.7 F 10/06/22 02:00 Pulse 85 10/06/22 02:00 Resp 17 10/06/22 02:00 BP 142/66 10/06/22 02:00 Pulse Ox 96 10/06/22 02:00 FiO2 Intake & Output 10/05/22 10/06/22 10/06/22 18:59 06:59 18:59 Intake Total 1100 50 Output Total 150 240 Balance 950 -190 Weight 161.1 kg 161.1 kg Intake: IV 1100 50 Output: Drainage 240 Right Hip 240 Estimated Blood Loss 150 - Exam The patient is sitting up in a chair at bedside. He is alert and able to answer questions. On inspection of patient's right hip is a clean-appearing dressing. His drain was removed. His thigh and calf are soft. Femoral nerve function is intact. Distally motor and sensory function are intact in the foot. - Labs CBC & Chem 7: 09/23/22 09:50 09/23/22 09:50 Assessment and Plan Assessment: Postoperative day #1 status post right rectus anterior replacement for femoral head avascular necrosis Plan: 1. Weightbearing as tolerated right lower extremity, up with assistance of a walker 2. DVT prophylaxis with aspirin 3. Drain pulled this morning 4. Surgical dressing in place 5. Internal medicine for perioperative medical management 6. Disposition: The patient inquired about rehab placement. We will consult care management to evaluate for this.
[2022-10-06] MEDS ORDERED: ALBUTEROL NEBULIZED 2.5 MG/3 ML INHALATION PRN (08:09)
[2022-10-06] MEDS: SYMBICORT 160-4.5 MCG INHALER INHALATION SCH ×2 (09:10→20:22)
[2022-10-06] MEDS: ASCORBIC ACID 500 MG TAB PO SCH (09:29)
[2022-10-06] MEDS: ASPIRIN 81 MG PO SCH ×2 (09:30→20:58)
[2022-10-06] MEDS: buPROPion 75 MG TAB PO SCH (09:30)
[2022-10-06] MEDS: CHOLECALCIFEROL 10 MCG (400 IU) TABLET PO SCH (09:30)
[2022-10-06] MEDS: ATORVASTATIN 80 MG TAB PO SCH (09:30)
[2022-10-06] MEDS: hydrOXYzine pamoate 25 MG CAP PO PRN ×3 (10:46→23:54)
--- NOTE | 2022-10-06 11:16 | P.CONS ---
History of Present Illness - Reason for Consult Consult date: 10/06/22 med management - History of Present Illness Patient is a 61-year-old male with history of prostate cancer status post surgery and radiation, morbid obesity, dyslipidemia, PTSD presenting for elective right hip surgery. He is status post right total hip replacement. [facility] has been consulted for medical management. He denies any current chest pain, shortness of breath, abdominal pain, nausea, vomiting, diarrhea, constipation, or urinary complaints. He claims that he has minimal pain and numbness around the right hip. He has been able to get out of bed with assistance. He denies any smoking, alcohol use, or illicit drug use. Patient seen and examined at bedside. Pertinent positives and negatives as discussed in HPI, a complete review of systems was performed and all other systems are negative. Vital signs reviewed General: nontoxic, no distress, appears at stated age, morbidly obese Derm: warm, dry, right hip dressing clean, dry, and intact Head: atraumatic, normocephalic, symmetric Eyes: EOMI, no lid lag, anicteric sclera, pupils equal round reactive to light ENT: Nose and ears atraumatic Neck: No thyromegaly, supple Mouth: no lip lesion, mucus membranes moist Cardiovascular: S1S2 reg, no murmur, no edema Lungs: clear to auscultation bilateral, no rhonchi, no rales, no wheeze, no accessory muscle use Abdominal: soft, nontender to palpation, no guarding, no appreciable organomegaly Ext: no gross muscle atrophy, muscle strength muscle strength 5 out of 5 in all 4 extremities, no contractures Neuro: CN II-XII grossly intact Psych: Alert, oriented, appropriate affect Assessment/Plan: Right hip avascular necrosis Status post right total hip replacement -Management per orthopedic surgery including DVT prophylaxis, and pain control -PT/OT Chronic medical problems: Dyslipidemia PTSD Asthma -Continue home medications -Patient euvolemic, discontinued IV fluids Morbid obesity -Outpatient follow up Prostate cancer in remission Patient will likely benefit from sleep study as an outpatient as well. Thank you for allowing us to participate in the care of this pleasant patient. Do not hesitate to contact us with questions. Someone can be reached from the [facility] hospitalist group all hours of the day at [phone] or via [employer]. Past Medical History Past Medical History: Asthma, Cancer, GERD/Reflux, Hyperlipidemia, Pneumonia, Prostate Disorder Additional Past Medical History / Comment(s): peripheral edema. Prostate cancer,ptsd, asbestos exposure in service, upper bridge, concussion as a yo uth.trigger finger-has had cortisone injections.PLEASE USE PAPER TAPE ONLY-REG TAPE AND BANDAIDS CAUSE RASH AND TEAR SKIN OFF. History of Any Multi-Drug Resistant Organisms: C-DIFF Year Discovered:: 10/21/20 MDRO Source:: stool Past Surgical History: Appendectomy, Prostate Surgery Additional Past Surgical History / Comment(s): as youth fell on broken glass jar and cut tendons lt writs-had sx to repair.left wrist carpal tunnel release, , left shoulder rotator reconstruction and has a pin in place, cystectomy tailbone, open abdominal surgery to remove prsotate Past Anesthesia/Blood Transfusion Reactions: No Reported Reaction Past Psychological History: PTSD Additional Psychological History / Comment(s): Pt resides with his spouse and 17 year old son. He is independent. Pt served in the [employer]. Smoking Status: Never smoker Past Alcohol Use History: None Reported Additional Past Alcohol Use History / Comment(s): . Past Drug Use History: None Reported - Past Family History Father Family Medical History: Congestive Heart Failure (CHF), Hypertension Mother Family Medical History: Cancer Additional Family Medical History / Comment(s): Depression. Medications and Allergies Home Medications Medication Instructions Recorded Confirmed Type Potassium Chloride ER [K-Dur 10] 10 meq PO DAILY 09/15/20 10/05/22 History buPROPion [Wellbutrin] 150 mg PO QAM 09/15/20 10/05/22 History Ascorbic Acid [Vitamin C] 1,000 mg PO DAILY 30 Days #60 tab 10/13/20 10/05/22 Rx Cholecalciferol [Vitamin D3 (10 400 unit PO DAILY 30 Days #30 tab 10/13/20 10/05/22 Rx Mcg = 400 Iu)] Furosemide [Lasix] 40 mg PO DAILY 30 Days #60 tab 10/13/20 10/05/22 Rx traZODone HCL 50 mg PO HS 10/16/20 10/05/22 History HYDROcodone/APAP 5-325MG [[place] 1 tab PO Q6HR PRN 3 Days #12 tab 08/08/22 10/05/22 Rx 5-325] Albuterol Inhaler [Ventolin Hfa 2 puff INHALATION QID PRN 09/28/22 10/05/22 History Inhaler] Atorvastatin Calcium [Lipitor] 80 mg PO DAILY 09/28/22 10/05/22 History Budesonide-Formot 160-4.5 Mcg 2 puff INHALATION BID 09/28/22 10/05/22 History [Symbicort 160-4.5 Mcg Inhaler] Aspirin 81 mg PO BID 30 Days #60 tab 10/05/22 Rx Diclofenac Sodium [Voltaren] 75 mg PO BID 30 Days #60 tab 10/05/22 Rx Docusate [Colace] 100 mg PO BID #60 capsule 10/05/22 Rx Doxycycline Monohydrate 100 mg PO BID 14 Days #28 cap 10/05/22 Rx HYDROcodone/APAP 5-325MG [[place] 1 - 2 tab PO Q6HR PRN 7 Days #32 10/05/22 Rx 5-325] tab Omeprazole 40 mg PO DAILY 30 Days #30 cap 10/05/22 Rx Allergies Allergy/AdvReac Type Severity Reaction Status Date / Time adhesive tape Allergy Rash/Hives Verified 10/05/22 14:01 Physical Exam Vitals: Vital Signs Temp Pulse Resp BP Pulse Ox 10/06/22 08:58 98.5 F 90 20 122/71 92 L 10/06/22 08:19 95 10/06/22 02:00 98.7 F 85 17 142/66 96 10/05/22 21:15 76 149/79 96 10/05/22 21:00 71 164/85 97 10/05/22 20:45 76 150/75 97 10/05/22 20:43 76 16 10/05/22 20:30 75 138/78 96 10/05/22 20:15 73 163/67 95 10/05/22 20:14 75 137/70 97 10/05/22 19:15 71 16 173/79 95 10/05/22 19:00 67 16 175/92 99 10/05/22 18:45 68 14 172/91 99 10/05/22 18:31 97.2 F L 73 14 177/81 95 10/05/22 14:10 98.3 F 89 18 176/77 100 Intake and Output 10/05/22 10/06/22 10/06/22 22:59 06:59 14:59 Intake Total 1050 Output Total 150 240 Balance 900 -240 Intake: IV 1050 Output: Drainage 240 Right Hip 240 Estimated Blood Loss 150 Other: Weight 161.1 kg Results CBC & Chem 7: 09/23/22 09:50 09/23/22 09:50
[2022-10-06 11:34] LABS: Basophils # (A) 0.07 X 10*3/uL (0.00-0.10); Basophils % (A) 0.4 %; Eosinophils # (A) 0.02 X 10*3/uL (0.04-0.35); Eosinophils % (A) 0.1 %; HCT 40.6 % (39.6-50.0); HGB 12.7 g/dL (13.0-17.0); Immature Grans, Automated 0.5 %; Lymphocytes # (A) 1.86 X 10*3/uL (0.90-5.00); Lymphocytes % (A) 9.7 %; MCH 29.5 pg (27.0-32.0); MCHC 31.3 g/dL (32.0-37.0); MCV 94.2 fL (80.0-97.0); Monocytes # (A) 2.35 X 10*3/uL (0.20-1.00); Monocytes % (A) 12.2 %; NRBC Per 100 WBC 0 /100 WBCS (0.0-0.0); Neutrophils # (A) 14.81 X 10*3/uL (1.80-7.70); Neutrophils % (A) 77.1 %; Platelet Count 334 X 10*3/uL (140-440); RBC 4.31 X 10*6/uL (4.40-5.60); RDW 13.5 % (11.5-14.5); WBC 19.21 X 10*3/uL (4.50-10.00)
[2022-10-06] MEDS ORDERED: HYDROcodone/APAP 7.5-325MG 1 EACH TAB PO PRN (15:44)
[2022-10-06] MEDS: HYDROcodone/APAP 7.5-325MG 1 EACH TAB PO PRN (17:30)
[2022-10-06 20:52] LABS: Glucose,Whole Blood 148 mg/dL (70-110)
[2022-10-06] MEDS ORDERED: traZODone HCL 50 MG TAB PO SCH (21:00)
[2022-10-07] MEDS: HYDROcodone/APAP 7.5-325MG 1 EACH TAB PO PRN ×2 (03:26→08:24)
[2022-10-07 06:17] LABS: Glucose,Whole Blood 142 mg/dL (70-110)
[2022-10-07] MEDS: hydrOXYzine pamoate 25 MG CAP PO PRN (07:22)
[2022-10-07 07:35] VITALS: BP 145/83; PULSE 86; RESP 18; TEMP 99.1
[2022-10-07] MEDS: ASPIRIN 81 MG PO SCH (08:18)
[2022-10-07] MEDS: CHOLECALCIFEROL 10 MCG (400 IU) TABLET PO SCH (08:19)
[2022-10-07] MEDS: ASCORBIC ACID 500 MG TAB PO SCH (08:19)
[2022-10-07] MEDS: ATORVASTATIN 80 MG TAB PO SCH (08:19)
[2022-10-07] MEDS: buPROPion 75 MG TAB PO SCH (09:33)
[2022-10-07] MEDS: SYMBICORT 160-4.5 MCG INHALER INHALATION SCH (09:41)
--- NOTE | 2022-10-07 11:29 | P.PN ---
Subjective Progress Note Date: 10/07/22 Principal diagnosis: med management Subjective: Patient seen and examined at bedside. No acute events overnight. He denies any significant right hip pain. He denies any other complaints at the moment. Pertinent positives and negatives as discussed above, a complete review of systems was performed and all other systems are negative. Vitals Signs Reviewed. General: nontoxic, no distress, appears at stated age, morbidly obese Derm: warm, dry, right hip dressing clean, dry, and intact Head: atraumatic, normocephalic, symmetric Eyes: EOMI, no lid lag, anicteric sclera, pupils equal round reactive to light ENT: Nose and ears atraumatic Neck: No thyromegaly, supple Mouth: no lip lesion, mucus membranes moist Cardiovascular: S1S2 reg, no murmur, no edema Lungs: clear to auscultation bilateral, no rhonchi, no rales, no wheeze, no accessory muscle use Abdominal: soft, nontender to palpation, no guarding, no appreciable organomegaly Ext: no gross muscle atrophy, muscle strength muscle strength 5 out of 5 in all 4 extremities, no contractures Neuro: CN II-XII grossly intact Psych: Alert, oriented, appropriate affect Assessment and Plan: Right hip avascular necrosis Status post right total hip replacement -Management per orthopedic surgery including DVT prophylaxis, and pain control -PT/OT Chronic medical problems: Dyslipidemia PTSD Asthma -Continue home medications -Patient euvolemic, discontinued IV fluids Prediabetes Morbid obesity -Outpatient follow up Prostate cancer in remission Patient will likely benefit from sleep study as an outpatient as well. Medically optimized for home. Thank you for allowing us to participate in the care of this pleasant patient. Do not hesitate to contact us with questions. Someone can be reached from the [facility] hospitalist group all hours of the day at [phone] or via [employer]. Objective - Vital Signs Vital signs: Vital Signs Temp 99.1 F 10/07/22 07:34 Pulse 86 10/07/22 07:34 Resp 18 10/07/22 07:34 BP 145/83 10/07/22 07:34 Pulse Ox 95 10/07/22 07:34 FiO2 Intake & Output 10/06/22 10/07/22 10/07/22 18:59 06:59 18:59 Output Total 240 Balance -240 Output: Drainage 240 Right Hip 240 Other: Voiding Method Urinal # Voids 3 4 - Labs CBC & Chem 7: 10/06/22 07:08 09/23/22 09:50 Labs: Abnormal Lab Results - Last 24 Hours (Table) 10/06/22 10/06/22 10/06/22 Range/Units 07:08 07:08 20:51 WBC 19.21 H (4.50-10.00) X 10*3/uL RBC 4.31 L (4.40-5.60) X 10*6/uL Hgb 12.7 L (13.0-17.0) g/dL MCHC 31.3 L (32.0-37.0) g/dL Immature Gran # 0.10 H (0.00-0.04) X 10*3/uL Neutrophils # 14.81 H (1.80-7.70) X 10*3/uL Monocytes # 2.35 H (0.20-1.00) X 10*3/uL Eosinophils # 0.02 L (0.04-0.35) X 10*3/uL POC Glucose (mg/dL) 148 H (70-110) mg/dL Hemoglobin A1c 6.4 H (0.0-6.0) % 10/07/22 Range/Units 06:16 WBC (4.50-10.00) X 10*3/uL RBC (4.40-5.60) X 10*6/uL Hgb (13.0-17.0) g/dL MCHC (32.0-37.0) g/dL Immature Gran # (0.00-0.04) X 10*3/uL Neutrophils # (1.80-7.70) X 10*3/uL Monocytes # (0.20-1.00) X 10*3/uL Eosinophils # (0.04-0.35) X 10*3/uL POC Glucose (mg/dL) 142 H (70-110) mg/dL Hemoglobin A1c (0.0-6.0) %
--- NOTE | 2022-10-07 11:31 | P.DS ---
Providers Date of admission: 10/06/22 06:59 Expected date of discharge: 10/07/22 Attending physician: Ronald Contreras Consults: 10/05/22 18:26 Consult Physician Routine Consulting Provider: Mely Carlos Consult Reason/Comments: medical management Do you want consulting provider notified?: Already Contacted Primary care physician: [facility]: This is a 61-year-old male who was last seen in our office with complaint of continued right hip pain. The patient has a known history of degenerative arthritis of the right hip and presents to discuss surgical options. After discussion and consideration the patient elects to proceed with a direct anterior total right hip arthroplasty. He is seen preoperatively by Dr. Alex and cleared for surgery. The patient is admitted to [facility] for total right hip arthroplasty. The procedure is performed without complication or sequelae. The patient is doing well postoperatively. Vital signs and postoperative labs are stable. Patient is examined bedside. He states the pain is well-controlled at this time. He is ambulating with a walker with minimal assistance. He would like to return home on discharge. He has been evaluated and cleared by physical therapy to return home today. He is doing well this morning has no complaints. He denies chest pain, shortness breath. On examination, the patient is sitting up in the bedside chair in no apparent distress. He is alert and oriented 3. On inspection of the right hip, there is a clean, dry, intact surgical dressing in place. No bleeding or drainage through the dressing. There is mild swelling of the thigh, the thigh soft and compressible. Motor and sensory function is intact of the right lower extre mity. Right lower extremity warm and well-perfused. Calf is nontender. The patient is discharged to home today in good condition, pending medical clearance. Please see discharge orders. Please refer to the med rec for accurate list of medications. He should follow-up in the office in two weeks at [facility]. Plan - Discharge Summary Discharge Rx Participant: Yes New Discharge Prescriptions: New Docusate [Colace] 100 mg PO BID #60 capsule Doxycycline Monohydrate 100 mg PO BID 14 Days #28 cap HYDROcodone/APAP 7.5-325MG [[place] 7.5-325] 1 - 2 tab PO Q6HR PRN 7 Days #32 tab PRN Reason: Pain Aspirin 81 mg PO BID 30 Days #60 tab Omeprazole 40 mg PO DAILY 30 Days #30 cap Diclofenac Sodium [Voltaren] 75 mg PO BID 30 Days #60 tab Continue buPROPion [Wellbutrin] 150 mg PO QAM Potassium Chloride ER [K-Dur 10] 10 meq PO DAILY Ascorbic Acid [Vitamin C] 1,000 mg PO DAILY 30 Days #60 tab Cholecalciferol [Vitamin D3 (10 Mcg = 400 Iu)] 400 unit PO DAILY 30 Days #30 tab Furosemide [Lasix] 40 mg PO DAILY 30 Days #60 tab traZODone HCL 50 mg PO HS Albuterol Inhaler [Ventolin Hfa Inhaler] 2 puff INHALATION QID PRN PRN Reason: Shortness Of Breath Budesonide-Formot 160-4.5 Mcg [Symbicort 160-4.5 Mcg Inhaler] 2 puff INHALATION BID Atorvastatin Calcium [Lipitor] 80 mg PO DAILY No Action HYDROcodone/APAP 5-325MG [[place] 5-325] 1 tab PO Q6HR PRN 3 Days #12 tab PRN Reason: Pain Discharge Medication List Potassium Chloride ER [K-Dur 10] 10 meq PO DAILY 09/15/20 [History] buPROPion [Wellbutrin] 150 mg PO QAM 09/15/20 [History] Ascorbic Acid [Vitamin C] 1,000 mg PO DAILY 30 Days #60 tab 10/13/20 [Rx] Cholecalciferol [Vitamin D3 (10 Mcg = 400 Iu)] 400 unit PO DAILY 30 Days #30 tab 10/13/20 [Rx] Furosemide [Lasix] 40 mg PO DAILY 30 Days #60 tab 10/13/20 [Rx] traZODone HCL 50 mg PO HS 10/16/20 [History] HYDROcodone/APAP 5-325MG [[place] 5-325] 1 tab PO Q6HR PRN 3 Days #12 tab 08/08/22 [Rx] Albuterol Inhaler [Ventolin Hfa Inhaler] 2 puff INHALATION QID PRN 09/28/22 [His tory] Atorvastatin Calcium [Lipitor] 80 mg PO DAILY 09/28/22 [History] Budesonide-Formot 160-4.5 Mcg [Symbicort 160-4.5 Mcg Inhaler] 2 puff INHALATION BID 09/28/22 [History] Aspirin 81 mg PO BID 30 Days #60 tab 10/05/22 [Rx] Diclofenac Sodium [Voltaren] 75 mg PO BID 30 Days #60 tab 10/05/22 [Rx] Docusate [Colace] 100 mg PO BID #60 capsule 10/05/22 [Rx] Doxycycline Monohydrate 100 mg PO BID 14 Days #28 cap 10/05/22 [Rx] Omeprazole 40 mg PO DAILY 30 Days #30 cap 10/05/22 [Rx] HYDROcodone/APAP 7.5-325MG [[place] 7.5-325] 1 - 2 tab PO Q6HR PRN 7 Days #32 tab 10/07/22 [Rx] Follow up Appointment(s)/Referral(s): Ronald Contreras MD [Medical Doctor] - 10/18/22 2:50 pm Activity/Diet/Wound Care/Special Instructions: Attend outpatient physical therapy as arranged prior to surgery at [facility]. Weight bear to tolerance on operative extremity with a walker. Keep operative dressing intact until follow-up appointment in the office. Call the office if dressing becomes saturated or falls off. May shower over dressing. Take pain medications as prescribed. Take aspirin 81mg twice a day x 4 weeks for blood clot prevention. Follow-up in the office in two weeks at [facility]. Call the office with any questions or concerns, Discharge Disposition: HOME WITH HOME HEALTH SERVICES
[2022-10-07 11:34] LABS: Glucose,Whole Blood 116 mg/dL (70-110)
== END 2022-10-07 14:18 | disposition home health service (06) ==
LOC: OR 13:26 → 4SSUR 18:10 → OR 10-06 06:59
PROVIDERS: ADMIT Orthopaedic Surgery; ATTEND Orthopaedic Surgery
DX: M87.051 Idiopathic aseptic necrosis of right femur (principal); M16.11 Unilateral primary osteoarthritis, right hip; E66.01 Morbid (severe) obesity due to excess calories; Z68.42 Body mass index [BMI] 45.0-49.9, adult; E11.9 Type 2 diabetes mellitus without complications; E78.5 Hyperlipidemia, unspecified; F43.10 Post-traumatic stress disorder, unspecified; J45.909 Unspecified asthma, uncomplicated; H91.90 Unspecified hearing loss, unspecified ear; F32.A Depression, unspecified; Z79.51 Long term (current) use of inhaled steroids; Z91.048 Other nonmedicinal substance allergy status; Z79.899 Other long term (current) drug therapy; Z96.612 Presence of left artificial shoulder joint; Z85.46 Personal history of malignant neoplasm of prostate; Z92.3 Personal history of irradiation; Z77.090 Contact with and (suspected) exposure to asbestos; Z90.79 Acquired absence of other genital organ(s); Z87.01 Personal history of pneumonia (recurrent); Z87.820 Personal history of traumatic brain injury; Z16.24 Resistance to multiple antibiotics; Z86.16 Personal history of COVID-19; Z87.828 Personal history of other (healed) physical injury and trauma; Z97.3 Presence of spectacles and contact lenses; Z90.49 Acquired absence of other specified parts of digestive tract; Z98.890 Other specified postprocedural states; Z82.49 Family history of ischemic heart disease and other diseases of the circulatory system; Z80.9 Family history of malignant neoplasm, unspecified; Z81.8 Family history of other mental and behavioral disorders
CPT/HCPCS: 27130; 94640 ×3; 94760; 97530 ×2; 97161; 97166; 86900; 86901; 80053; 85025 ×2; 85610; 85730; 86850; 87070; 87086; 83036; 73501; 93005; G0378 ×2; C1776; J2250; J0330; J1100; J2710; J0690 ×2; J2405; J3010; J1170 ×2; J1885; J2704; J2001

== ENCOUNTER → 2023-08-16 | Outpatient (CLI) | payer OTHER ==
--- NOTE | 2023-08-17 08:21 | CT ---
EXAMINATION TYPE: CT chest w con CT DLP: 967.2 mGycm, Automated exposure control for dose reduction was used. DATE OF EXAM: 08/16/2023 4:03 PM COMPARISON: Chest radiograph from 08/09/2023, CTA chest 10/14/2020. CLINICAL INDICATION:Male, 62 years old with history of R05.3 CHRONIC COUGH; PHH, h/o lung nodules f/u TECHNIQUE: Multiple axial images were obtained through the chest following the administration of 100 cc of Isovue 300. . Coronal and sagittal reformats reviewed. FINDINGS: LUNGS/ PLEURA: No pleural effusion, pneumothorax, focal consolidation. Subtle scattered subpleural re ticular groundglass opacities. Right midlung 3 mm pulmonary nodule in the right major fissure favored to represent an intrafissural lymph node. No clinically significant pulmonary nodules. AIRWAY: Patent and unremarkable.. HEART: Size within normal limits. No pericardial effusion. Throughout the lungs MEDIASTINUM: No evidence of adenopathy. VASCULATURE: No aortic aneurysm. MUSCULOSKELETAL: Mild disc degeneration changes are present throughout the thoracolumbar spine. No ac ha osseous abnormality. Remote right-sided rib fractures. SOFT TISSUES/LYMPH NODES: Unremarkable. LOWER NECK: No significant findings. UPPER ABDOMEN: Diffuse low-attenuation to the liver parenchyma. IMPRESSION: 1. Subtle scattered subpleural reticular glass opacities throughout the lungs. This suggests atypical pneumonia. 2. No clinically significant pulmonary nodule. 3. Hepatic steatosis.
== END | disposition home or self-care (01) ==
LOC: RADCTMAIN 15:32
PROVIDERS: ATTEND Internal Medicine
DX: R91.8 Other nonspecific abnormal finding of lung field (principal); K76.0 Fatty (change of) liver, not elsewhere classified; R05.3 Chronic cough
CPT/HCPCS: 71260; Q9967

== ENCOUNTER → 2024-04-26 | Outpatient (CLI) | payer OTHER ==
[2024-04-27 02:52] LABS: Basophils # (A) 0.09 X 10*3/uL (0.00-0.10); Basophils % (A) 0.7 %; Eosinophils # (A) 0.33 X 10*3/uL (0.04-0.35); Eosinophils % (A) 2.7 %; HCT 50.2 % (39.6-50.0); HGB 15.9 g/dL (13.0-17.0); Lymphocytes # (A) 2.07 X 10*3/uL (0.90-5.00); Lymphocytes % (A) 17.1 %; MCH 29.4 pg (27.0-32.0); MCHC 31.7 g/dL (32.0-37.0); Mean Platelet Volume 11.2 FL (9.5-12.2); Monocytes # (A) 1.19 X 10*3/uL (0.20-1.00); Monocytes % (A) 9.9 %; NRBC Per 100 WBC 0 X 10*3/uL (0.00-0.01); Neutrophils # (A) 8.34 X 10*3/uL (1.80-7.70); Neutrophils % (A) 69.2 %; Platelet Count 329 X 10*3/uL (140-440); RDW 13.2 % (11.5-14.5); WBC 12.07 X 10*3/uL (4.50-10.00)
[2024-04-27 03:04] LABS: BUN/Creat Ratio 21.38 Ratio (12.00-20.00); Blood Urea Nitrogen 17.1 mg/dL (9.0-27.0); Calcium 9.4 mg/dL (8.7-10.3); Carbon Dioxide 21.4 mmol/L (21.6-31.8); Chloride 103 mmol/L (96-109); Glucose 122 mg/dL (70-110); Potassium 4.8 mmol/L (3.5-5.5); Sodium 140 mmol/L (135-145)
== END | disposition home or self-care (01) ==
LOC: LABPAT 15:34
PROVIDERS: ATTEND Orthopaedic Surgery Hand Surgery
DX: Z01.818 Encounter for other preprocedural examination (principal); G56.01 Carpal tunnel syndrome, right upper limb; G56.21 Lesion of ulnar nerve, right upper limb
CPT/HCPCS: 80048; 85025; 93005

== ENCOUNTER 2024-05-08 13:45 | Day surgery (SDC) | payer OTHER ==
--- NOTE | 2024-05-07 14:25 | P.HPOR ---
History of Present Illness H&P Date: 05/07/24 ubjective: This is a 63 year old male that presents today for initial evaluation regarding a six year history of progressively worsening bilateral hand numbness and tingling with associated weakness. He states his right is much worse than his left and that he has daily symptoms of numbness and tingling involving the entire hand that sometimes radiate up to the elbow. He has tried bracing in the past with no relief. He denies any injury or inciting event. He has recently sta rted to drop things. Physical Examination: LUE: AIN/PIN/Radial/Ulnar/Median motor intact. Radial/Ulnar/Median SILT. 2+/4 Radial/Ulnar pulses palpated. 5/5 APB, 5/5 FDI. Negative Finkelsteins, negative CMC grind, positive Durkan's compression. RUE: AIN/PIN/Radial/Ulnar/Median motor intact. Radial/Ulnar/Median SILT. 2+/4 Radial/Ulnar pulses palpated. 5/5 APB, 5/5 FDI. Negative Finkelsteins, negative CMC grind, positive Durkan's compression. Ring and small finger numbness reproduced after 10 seconds of elbow flexion. Nerve Testing: EMG and nerve conduction velocity testing performed on 03/14/2024, demonstrates severe right carpal tunnel syndrome, moderate left carpal tunnel syndrome. Moderate bilateral cubital tunnel syndrome. Impression: 1.) Bilateral carpal tunnel syndrome 2.) Bilateral cubital tunnel syndrome Plan: Diagnosis and treatment options were discussed with the patient. The patient has failed conservative treatment and would like to pursue a right endoscopic versus open carpal tunnel release and a right open cubital tunnel release.Risks and b enefits of surgery including bleeding, infection, damage to surrounding tissue, need for further surgery, possible need to convert to open procedure, residual numbness were discussed and the patient wished to go forward with surgery. 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 The patient was agreeable with this plan. PCP clearance is requested due to general anesthetic. -Alexis Norton DO Orthopedic Hand/Upper Extremity Surgeon Past Medical History Past Medical History: Asthma, Cancer, GERD/Reflux, Hyperlipidemia, Pneumonia, Prostate Disorder Additional Past Medical History / Comment(s): peripheral edema. Prostate cancer,ptsd, asbestos exposure in service, upper bridge, concussion as a yo uth.trigger finger-has had cortisone injections.PLEASE USE PAPER TAPE ONLY-REG TAPE AND BANDAIDS CAUSE RASH AND TEAR SKIN OFF. History of Any Multi-Drug Resistant Organisms: C-DIFF Date of last positivie culture/infection: 10/21/20 MDRO Source:: stool Past Surgical History: Appendectomy, Prostate Surgery Additional Past Surgical History / Comment(s): as youth fell on broken glass jar and cut tendons lt writs-had sx to repair.left wrist carpal tunnel release, , left shoulder rotator reconstruction and has a pin in place, cystectomy tailbone, open abdominal surgery to remove prsotate Past Anesthesia/Blood Transfusion Reactions: No Reported Reaction Past Psychological History: PTSD Additional Psychological History / Comment(s): Pt resides with his spouse and 17 year old son. He is independent. Pt served in the [employer]. Smoking Status: Never smoker Past Alcohol Use History: None Reported Additional Past Alcohol Use History / Comment(s): . Past Drug Use History: None Reported - Past Family History Father Family Medical History: Congestive Heart Failure (CHF), Hypertension Mother Family Medical History: Cancer Additional Family Medical History / Comment(s): Depression. Medications and Allergies Home Medications Medication Instructions Recorded Confirmed Type Potassium Chloride ER [K-Dur 10] 10 meq PO DAILY 09/15/20 10/05/22 History buPROPion [Wellbutrin] 150 mg PO QAM 09/15/20 10/05/22 History Ascorbic Acid [Vitamin C] 1,000 mg PO DAILY 30 Days #60 tab 10/13/20 10/05/22 Rx Cholecalciferol [Vitamin D3 (10 400 unit PO DAILY 30 Days #30 tab 10/13/20 10/05/22 Rx Mcg = 400 Iu)] Furosemide [Lasix] 40 mg PO DAILY 30 Days #60 tab 10/13/20 10/05/22 Rx traZODone HCL 50 mg PO HS 10/16/20 10/05/22 History HYDROcodone/APAP 5-325MG [[place] 1 tab PO Q6HR PRN 3 Days #12 tab 08/08/22 10/05/22 Rx 5-325] Albuterol Inhaler [Ventolin Hfa 2 puff INHALATION QID PRN 09/28/22 10/05/22 History Inhaler] Atorvastatin Calcium [Lipitor] 80 mg PO DAILY 09/28/22 10/05/22 History Budesonide-Formot 160-4.5 Mcg 2 puff INHALATION BID 09/28/22 10/05/22 History [Symbicort 160-4.5 Mcg Inhaler] Aspirin 81 mg PO BID 30 Days #60 tab 10/05/22 Rx Diclofenac Sodium [Voltaren] 75 mg PO BID 30 Days #60 tab 10/05/22 Rx Docusate [Colace] 100 mg PO BID #60 capsule 10/05/22 Rx Doxycycline Monohydrate 100 mg PO BID 14 Days #28 cap 10/05/22 Rx Omeprazole 40 mg PO DAILY 30 Days #30 cap 10/05/22 Rx HYDROcodone/APAP 7.5-325MG [[place] 1 - 2 tab PO Q6HR PRN 7 Days #32 10/07/22 Rx 7.5-325] tab Allergies Allergy/AdvReac Type Severity Reaction Status Date / Time adhesive tape Allergy Rash/Hives Verified 05/07/24 09:21 Physical Examination Osteopathic Statement: *. No significant issues noted on an osteopathic structural exam other than those noted in the History and Physical/Consult.
[~2024-05-08 13:45] MED LIST changes: -ACETAMINOPHEN TAB 500 MG TAB PO PRN; -DEXAMETHASONE SOD PHOSPHATE 10 MG/ML 1 ML VIAL IV PRN; -DOCUSATE 100 MG CAP PO PRN; -FAMOTIDINE 20 MG/2 ML VIAL IVP PRN; -LACTATED RINGERS 1,000 ML IV SCH; +MIDAZOLAM 2 MG/2 ML VIAL IV PRN; -ONDANSETRON 4 MG/2 ML VIAL IVP PRN; +Pre Op ABX Message 1 EACH MISC MISCELLANE ONE; -ROPIVACAINE/EPI/CLONIDINE/KET 50 ML SYRINGE MISCELLANE PRN; -TRANEXAMIC ACID IN NACL,ISO-OS 1,000 MG in SALINE 1 100ML.BAG IVPB PRN; -ceFAZolin 3 GM in SODIUM CHLORIDE 0.9% 100 ML IVPB PRN; -oxyCODONE ER 10 MG TAB.ER.12H PO PRN
[2024-05-08] MEDS: IV FLUID CONTINUATION 1,000 ML IV ONE ×2 (13:56→16:06)
[2024-05-08] MEDS: ONDANSETRON 4 MG/2 ML VIAL IVP ONE (14:17)
[2024-05-08] MEDS: DEXAMETHASONE SOD PHOSPHATE 4 MG/ML 1 ML VIAL IV ONE (14:18)
[2024-05-08] MEDS: LACTATED RINGERS 1,000 ML IV SCH (14:18)
[2024-05-08] MEDS ORDERED: ePHEDrine 50 MG/ML 1 ML VIAL ONE (14:39)
[2024-05-08] MEDS ORDERED: KETOROLAC 30 MG/ML 1 ML VIAL ONE (14:39)
[2024-05-08] MEDS ORDERED: LIDOCAINE 1% INJ 10MG/ML (20 ML MDV) ONE (14:39)
[2024-05-08] MEDS ORDERED: KETAMINE HCL IN 0.9 % NACL 50 MG/5 ML SYRINGE ONE (14:39)
[2024-05-08] MEDS ORDERED: SUCCINYLCHOLINE CHLORIDE 200 MG/10 ML VIAL IV ONE (14:39)
[2024-05-08] MEDS ORDERED: fentaNYL (PF) 50 MCG/ML 2 ML AMP ONE (14:39)
[2024-05-08] MEDS ORDERED: MIDAZOLAM 2 MG/2 ML VIAL ONE (14:39)
[2024-05-08] MEDS ORDERED: PROPOFOL 10 MG/ML 20 ML VIAL IV ONE (14:39)
[2024-05-08] MEDS: BUPIVACAINE (PF) 0.5% 30 ML VIAL SQ ONE ×3 (15:07→16:02)
--- NOTE | 2024-05-08 16:08 | P.OP ---
Date of Procedure: 05/08/24 Preoperative Diagnosis: 1.) Right carpal tunnel syndrome 2.) Right cubital tunnel syndrome Postoperative Diagnosis: 1.) Right carpal tunnel syndrome 2.) Right cubital tunnel syndrome Procedure(s) Performed: 1.) Right endoscopic carpal tunnel release 2.) Right open in situ cubital tunnel release Anesthesia: SHANNEN Surgeon: Alexis Norton Estimated Blood Loss (ml): 0 Pathology: none sent Condition: stable Disposition: PACU Description of Procedure: This is a 63 year old male who presented today for a right endoscopic carpal tunnel release and open cubital tunnel release after having failed conservative treatment. Risks and benefits of surgery were discussed with the patient incl uding bleeding, damage to surrounding tissue, infection, need for further surgery as well as risks of anesthesia including pulmonary embolism and even and the patient wished to proceed with surgical intervention. The patient was seen in the pre-operative area by myself. Consent and H&P were completed and updated. The correct extremity was marked in the pre-operative area by myself and all other questions were answered. Operative Narrative: The patient was brought to the operating room by the department of anesthesia. They remained on the portable stretcher and a rolling hand table was brought to the side of the operative extremity. Pre-operative time out was performed indicating the correct patient, procedure and laterality. All in the room agreed. Pre-operative antibiotics were given prior to skin incision. The patient was then drifted off to sleep by the department of anesthesia. A nonsterile tourniquet was then applied to the operative extremity and the right upper extremity was then prepped and draped in normal sterile fashion. The operative extremity was the exsanguinated with an esmarch bandage and the tourniquet was inflated to 250mmHg. 15 blade scalpel was utilized to make a transverse incision on the palmar skin just ulnar to the palmaris longus tendon at the level of the distal wrist crease. Ragnell retractor was then placed radially and blunt dissection was performed to reveal the distal forearm fascia. This was lifted with fine Emre pick ups and Littler tenotomy scissors were then used to open the forearm fascia transversely and a double skin hook was then placed. Hamate finder was placed into the carpal tunnel and then sequential sized dilators were inserted followed by the synovial elevator to separate the flexor tenosynovium from the undersurface of the transverse carpal ligament and a washboard texture was felt. The MicroAire endoscopic carpal tunnel release system gun was the then inserted into the carpal tunnel hugging the deep portion of the transverse carpal ligament in line with the base of the ring finger. Transverse fibers of the ligament were directly visualized. Pressure was applied on the palm to reveal the distal extent of the transverse carpal ligament. The blade was then deployed and the distal half of the transverse carpal ligament was released. The scope was then brought distal again and remaining transverse fibers were incised with the blade. The proximal half of the transverse carpal ligament was then divided and again the scope was advanced distal and remaining transverse fibers were incised with the blade. The radial and ulnar leaflets were directly visualized and mobile consistent with complete release. Tenotomy scissors were then utilized to release the remaining distal forearm fascia under direct visualization taking care to preserve the palmar cutaneous branch of the median nerve. Attention was brought to the medial elbow. 15 blade scalpel was used to incise skin in between the medial epicondyle and olecranon in a curvlinear and longitudinal fashion. Blunt dissection was taken down through subcutaneous tissue with tenotomy scissors and branches of the MABCN were identified and protected. Dissection was carried proximally and the ulnar nerve was identified and released from it's proximal soft tissue attachments. Dissection was then carried distally and erickson's ligament was released at the medial epicondyle, the nerve appeared compressed at this location. Dissection was then carried out further distal and the fascia of the two heads of the FCU were incised and the ulnar nerve was decompressed with Logan and tenotomy scissors and appeared to be tension free. The elbow was the flexed and extended and the ulnar nerve appeared to be stable in a tension free manner 20ccs 0.5% bupivacaine was injected into the subcutaneous tissues. Skin closure was performed with interrupted 4-0 Monocryl sutures followed by running 4-0 nylon sutures, tourniquet was then let down and the hand had immediate perfusion. The patient was then woken by the department of anesthesia and transferred to PACU in stable condition. Alexis Norton D.O. Orthopedic Hand/Upper Extremity Surgeon
[2024-05-08 16:24] VITALS: TEMP 97.5
[2024-05-08] MEDS: IPRATROPIUM-ALBUTEROL 3 ML NEB INHALATION STA (17:27)
[2024-05-08 17:51] VITALS: BP 131/69; PULSE 91; RESP 20
== END 2024-05-08 17:54 | disposition home or self-care (01) ==
LOC: OR 13:45
PROVIDERS: ATTEND Orthopaedic Surgery Hand Surgery
DX: G56.01 Carpal tunnel syndrome, right upper limb (principal); G56.21 Lesion of ulnar nerve, right upper limb; J45.909 Unspecified asthma, uncomplicated; E78.5 Hyperlipidemia, unspecified; K21.9 Gastro-esophageal reflux disease without esophagitis; Z85.46 Personal history of malignant neoplasm of prostate; Z79.51 Long term (current) use of inhaled steroids
CPT/HCPCS: 64718; 29848; J2250; J0330; J1100; J2405; J2001; J3010; J1885; J2704; J0665

== ENCOUNTER 2025-03-30 09:55 | Emergency (ER) | payer OTHER ==
[2025-03-30 10:08] VITALS: TEMP 98
--- NOTE | 2025-03-30 10:36 | XR ---
EXAMINATION TYPE: XR wrist complete RT DATE OF EXAM: 03/30/2025 10:28 AM COMPARISON: Plain film CLINICAL INDICATION: Male, 64 years old with history of injury; PHH, pain TECHNIQUE: XR wrist complete RT; examined in the Frontal, navicular, lateral, and oblique. FINDINGS: Acute distal radius fracture with intra-articular extension seen on one view only 1 mm disp lacement. Soft tissue swelling. IMPRESSION: Acute distal radius intra-articular fracture without significant displacement [facility], , 03/30/2025 10:33 AM
--- NOTE | 2025-03-30 11:26 | ED ---
Upper Extremity HPI - General Chief Complaint: Extremity Injury, Upper Stated Complaint: Fall-Right Arm Injury Time Seen by Provider: 03/30/25 10:14 Source: patient, RN notes reviewed Mode of arrival: ambulatory Limitations: no limitations - History of Present Illness Initial Comments: This is a 64-year-old male presenting for right wrist injury/pain (07/25) occurring at 0945 this morning. Patient states he suffered a fall backwards when he tripped over his dog and dog bed, landing onto his right hand with immediate pain upon falling. Patient denies striking head, loss of consciousness, headache, neck pain, other significant injury. Patient denies [id number] medication use prior to ER arrival. MD Complaint: Injury to:: right, wrist Onset/Timin -: minutes(s) Time: 09:45 Other Extremity Injury: Wrist: Right Other Injuries: none Place: home Severity scale (1-10): 10 Improves With: immobilization, rest Worsens With: movement of extremity Context: fall Associated Symptoms: denies other symptoms - Related Data Home Medications Medication Instructions Recorded Confirmed buPROPion [Wellbutrin] 150 mg PO QAM 09/15/20 05/08/24 traZODone HCL 50 mg PO HS 10/16/20 05/08/24 Albuterol Inhaler [Ventolin Hfa 2 puff INHALATION QID PRN 09/28/22 05/08/24 Inhaler] Atorvastatin Calcium [Lipitor] 80 mg PO DAILY 09/28/22 05/08/24 Fluticasone Propion/Salmeterol 1 puff PO DAILY 05/08/24 05/08/24 [Fluticasone-Salmeterol 250-50] Montelukast [Singulair] 10 mg PO DAILY 05/08/24 05/08/24 Previous Rx's Medication Instructions Recorded Cholecalciferol [Vitamin D3 (10 400 unit PO DAILY 30 Days #30 tab 10/13/20 Mcg = 400 Iu)] Furosemide [Lasix] 40 mg PO DAILY 30 Days #60 tab 10/13/20 HYDROcodone/APAP 5-325MG [[place] 1 tab PO Q6HR PRN 3 Days #24 tab 05/08/24 5-325] Ibuprofen [Motrin] 800 mg PO Q8HR PRN #30 tab 03/30/25 Allergies Allergy/AdvReac Type Severity Reaction Status Date / Time adhesive tape Allergy Rash/Hives Verified 03/30/25 10:07 Review of Systems ROS Statement: Those systems with pertinent positive or pertinent negative responses have been documented in the HPI. ROS Other: All systems not noted in ROS Statement are negative. Past Medical History Past Medical History: Asthma, Cancer, GERD/Reflux, Hyperlipidemia, Pneumonia, Prostate Disorder Additional Past Medical History / Comment(s): peripheral edema. 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 History of Any Multi-Drug Resistant Organisms: C-DIFF Date of last positivie culture/infection: 10/21/20 MDRO Source:: stool Past Surgical History: Appendectomy, Prostate Surgery Additional Past Surgical History / Comment(s): as youth fell on broken glass jar and cut tendons lt writs-had sx to repair.left wrist carpal tunnel release, , left shoulder rotator reconstruction and has a pin in place, cystectomy tailbone, open abdominal surgery to remove prsotate Past Anesthesia/Blood Transfusion Reactions: No Reported Reaction Past Psychological History: PTSD Smoking Status: Never smoker Past Alcohol Use History: None Reported Past Drug Use History: None Reported - Past Family History Father Family Medical History: Congestive Heart Failure (CHF), Hypertension Mother Family Medical History: Cancer Additional Family Medical History / Comment(s): Depression. General Exam Limitations: no limitations General appearance: alert, in no apparent distress Head exam: Present: atraumatic, normocephalic, normal inspection Eye exam: Present: normal appearance, PERRL, EOMI. Absent: scleral icterus, conjunctival injection, periorbital swelling ENT exam: Present: normal exam, mucous membranes moist Neck exam: Present: normal inspection. Absent: tenderness, meningismus, lymphadenopathy Respiratory exam: Present: normal lung sounds bilaterally. Absent: respiratory distress, wheezes, rales, rhonchi, stridor Cardiovascular Exam: Present: regular rate, normal rhythm, normal heart sounds. Absent: systolic murmur, diastolic murmur, rubs, gallop, clicks GI/Abdominal exam: Present: soft, normal bowel sounds. Absent: distended, tenderness, guarding, rebound, rigid Extremities exam: Present: tenderness (Positive right radial wrist exquisite TTP without obvious crepitus, deformity, open wound.), normal capillary refill, joint swelling (Some edema noted over the dorsal aspect of the right wrist radial aspect), other (Right distal neurovascular and motor function intact. Radial pulse +2, capillary refill less than 2 seconds. Patient notes some reproducible pain with finger movement.). Absent: pedal edema, calf tenderness Back exam: Present: normal inspection Neurological exam: Present: alert, oriented X3, CN II-XII intact Psychiatric exam: Present: normal affect, normal mood Skin exam: Present: warm, dry, intact, normal color. Absent: rash Course Vital Signs 03/30/25 03/30/25 03/30/25 10:06 11:15 11:39 Temperature 98 F Pulse Rate 85 83 Respiratory 20 17 16 Rate Blood Pressure 143/80 147/77 O2 Sat by Pulse 99 95 Oximetry Procedures - Orthopedic Splinting/Casting Injury #1 Side: right Upper Extremity Injury Location: wrist Upper Extremity Immobilizer: sling/shoulder immobilizer, sugar tong splint Medical Decision Making - Medical Decision Making Was pt. sent in by a medical professional or institution (Dr. PA, [facility] [employer], urgent care, hospital, or [facility]...) When possible be specific @ -No Did you speak to anyone other than the patient for history (EMS, parent, family, police, friend...)? What history was obtained from this source @ -No Did you review nursing and triage notes (agree or disagree)? Why? @ -I reviewed and agree with nursing and triage notes Were old charts reviewed (outside hosp., previous admission, EMS record, old EKG, old radiological studies, urgent care reports/EKG's, [facility] records)? Report findings @ -No old charts were reviewed Differential Diagnosis (chest pain, altered mental status, abdominal pain women, abdominal pain men, vaginal bleeding, weakness, fever, dyspnea, syncope, headache, dizziness, GI bleed, back pain, seizure, CVA, palpatations, mental health, musculoskeletal)? @ -Differential Musculoskeletal Muscular strain, contusion, ligament sprain, fracture, arthritis, septic arthritis, bursitis, cellulitis, muscle spasm, nerve compression, DVT, arterial occlusion, herpes zoster, electrolyte abnormality, tumor.... This is not meant to be in all inclusive list EKG interpreted by me (3pts min.). @ -Not done X-rays interpreted by me (1pt min.). @ - Right wrist x-ray shows acute distal radial intra-articular fracture without significant displacement. CT interpreted by me (1pt min.). @ -None done U/S interpreted by me (1pt. min.). @ -None done What testing was considered but not performed or refused? (CT, X-rays, U/S, labs)? Why? @ -None What meds were considered but not given or refused? Why? @ -None Did you discuss the management of the patient with other professionals (professionals i.e. , PA, [employer], lab, RT, psych nurse, social work program coordinator, manager reading, teacher, community service officer coordinator, case assistant)? Give summary @ -No Was smoking cessation discussed for >3mins.? @ -No Was critical care preformed (if so, how long)? @ -No Were there social determinants of health that impacted care today? How? (Homelessness, low income, unemployed, alcoholism, drug addiction, transportation, low edu. Level, literacy, decrease access to med. care, long-term, rehab)? @ -No Was there de-escalation of care discussed even if they declined (Discuss DNR or withdrawal of care, Hospice)? DNR status @ -No What co-morbidities impacted this encounter? (DM, HTN, Smoking, COPD, CAD, Cancer, CVA, ARF, Chemo, Hep., AIDS, mental health diagnosis, sleep apnea, morbid obesity)? @ -None Was patient admitted / discharged? Hospital course, mention meds given and route, prescriptions, significant lab abnormalities, going to OR and other pertinent info. @ -Patient provided IM Toradol, morphine and p.o. Tylenol for pain. Right wrist x-ray shows acute distal radial intra-articular fracture without significant displacement. Sugar-tong splint applied and patient provided arm sling. Discharged with T3 starter pack. Advised follow-up with orthopedics for ongoing management of fracture. Advised alternate Tylenol/Motrin every 4 hours for pain along with cold compress for 10 minutes up to 4 times daily. Discussed patient with Dr. Carr. Undiagnosed new problem with uncertain prognosis? @ -No Drug Therapy requiring intensive monitoring for toxicity (Heparin, Nitro, Insulin, Cardizem)? @ -No Were any procedures done? @ -Sugar-tong splint and sling applied to right forearm/wrist. See procedure note Diagnosis/symptom? @ -Intra-articular radial wrist fracture Acute, or Chronic, or Acute on Chronic? @ -Acute Uncomplicated (without systemic symptoms) or Complicated (systemic symptoms)? @ -Uncomplicated Side effects of treatment? @ -No Exacerbation, Progression, or Severe Exacerbation? @ -No Poses a threat to life or bodily function? How? (Chest pain, [place], [place], pneumonia, PE, COPD, DKA, ARF, appy, cholecystitis, CVA, Diverticulitis, Homicidal, Suic idal, threat to staff... and all critical care pts) @ -No Disposition Clinical Impression: Fracture of radius near wrist Disposition: HOME SELF-CARE Condition: Fair Instructions (If sedation given, give patient instructions): Wrist Fracture in Adults (ED) Additional Instructions: Alternate Tylenol/Motrin every 4 hours for pain. Follow-up with orthopedics for ongoing management of fracture. Prescriptions: Ibuprofen [Motrin] 800 mg PO Q8HR PRN #30 tab PRN Reason: Pain Is patient prescribed a controlled substance at d/c from ED?: No Referrals: None,Stated [REFERRING] - 1-2 days [facility] [Provider Group] - 1-2 days [facility] [Provider Group] - 1-2 days Time of Disposition: 11:45
[2025-03-30] MEDS: MORPHINE SULFATE 4 MG/ML SYRINGE IM STA (11:33)
[2025-03-30] MEDS: ACET/COD 300 MG/30 MG STARTER PACK 6 TAB BTL PO STA (11:34)
[2025-03-30] MEDS: KETOROLAC 15 MG/ML 1 ML VIAL IM STA (11:34)
[2025-03-30] MEDS: ACETAMINOPHEN TAB 500 MG TAB PO STA (11:35)
[2025-03-30 11:40] VITALS: BP 147/77; PULSE 83; RESP 16
== END 2025-03-30 12:04 | disposition home or self-care (01) ==
LOC: EC 09:55
DX: S52.571A Other intraarticular fracture of lower end of right radius, initial encounter for closed fracture (principal); Z88.8 Allergy status to other drugs, medicaments and biological substances; W01.0XXA Fall on same level from slipping, tripping and stumbling without subsequent striking against object, initial encounter
CPT/HCPCS: 73110; 99283; 29125; 96372 ×2; J2270; J1885